=== PATIENT | female | born 1955 | race American Indian/Alaskan Native ===

== ENCOUNTER 2017-06-05 13:07 | Emergency (ER) | payer MEDICAID ==
--- NOTE | 2017-06-05 13:27 | Emergency Department Report ---
ED Female HPI - General Stated complaint: VAGINAL BLEED Time Seen by Provider: 06/05/17 13:21 - History of Present Illness Initial comments: Patient is 61 years old female, snf patient at [place]. Patient presented to the ER with a chief complaint of vaginal bleeding that started this morning the patient denied any trauma or injury. She denied any abdominal pain or cramping. No nausea no vomiting. Patient had a history of diabetes, CABG, hyperlipidemia and hypertension. Patient on Plavix. MD Complaint: vaginal bleeding -: This morning Associated Symptoms: denies other symptoms, vaginal bleeding - Related Data Allergies Allergy/AdvReac Type Severity Reaction Status Date / Time No Known Allergies Allergy Unverified 06/05/17 13:30 ED Review of Systems ROS: Stated complaint: VAGINAL BLEED Other details as noted in HPI Comment: All other systems reviewed and negative Constitutional: denies: chills, fever Respiratory: denies: cough, shortness of breath, SOB with exertion, SOB at rest Cardiovascular: denies: chest pain, palpitations, dyspnea on exertion, orthopnea , edema, syncope, paroxysmal nocturnal dyspnea Gastrointestinal: denies: abdominal pain, nausea, vomiting, diarrhea, constipation, hematemesis, melena, hematochezia Genitourinary: abnormal menses. denies: urgency, dysuria ED Past Medical Hx - Past Medical History Hx Hypertension: Yes Hx Heart Attack/AMI: Yes Hx Diabetes: Yes ED Physical Exam - General General appearance: alert, in no apparent distress - Head Head exam: Present: atraumatic, normocephalic, normal inspection - Eye Eye exam: Present: normal appearance, PERRL - ENT ENT exam: Present: normal exam, normal orophraynx, mucous membranes moist - Neck Neck exam: Present: normal inspection, full ROM. Absent: tenderness, meningismus, lymphadenopathy, thyromegaly - Respiratory Respiratory exam: Present: normal lung sounds bilaterally. Absent: respiratory distress, wheezes, rales, rhonchi, stridor, chest wall tenderness, accessory muscle use, decreased breath sounds, prolonged expiratory - Cardiovascular Cardiovascular Exam: Present: regular rate, normal rhythm, normal heart sounds - GI/Abdominal GI/Abdominal exam: Present: soft, normal bowel sounds. Absent: distended, tenderness, guarding, rebound, rigid, organomegaly, mass, bruit, pulsatile mass , hernia - External exam: Present: bleeding. Absent: erythema, swelling, lesions, lacerations, ecchymosis Speculum exam: Present: vaginal bleeding. Absent: erythema, vaginal discharge - Extremities Exam Extremities exam: Present: normal inspection, full ROM, normal capillary refill , other (left below the knee amputation). Absent: tenderness, pedal edema, joint swelling, calf tenderness - Back Exam Back exam: Present: normal inspection, full ROM. Absent: tenderness, CVA tenderness (R), CVA tenderness (L), muscle spasm, paraspinal tenderness, vertebral tenderness - Neurological Exam Neurological exam: Present: alert, oriented X3, CN II-XII intact - Psychiatric Psychiatric exam: Present: normal affect, normal mood - Skin Skin exam: Present: warm, intact, normal color ED Medical Decision Making - Radiology Data Radiology results: report reviewed Referring Physician: DOREEN DOWLING Patient Name: SANTI COOPER Date of : 1955 Sex: Female Report Date: 2017-06-05 Report Status: [place] [address] Ultrasound Report Signed Patient: SANTI COOPER MR#: [id number] : 1955 Acct:[id number] Age/Sex: 61 / F ADM Date: 06/05/17 Loc: ED Attending Dr: Ordering Physician: DOREEN DOWLING Date of Service: 06/05/17 Procedure(s): US transvaginal Accession Number(s): [id number] cc: DOREEN DOWLING FINAL REPORT PROCEDURE: US transabdominal and TRANSVAGINAL TECHNIQUE: Real-time transabdominal sonography in multiple planes of the pelvis was performed. The pelvic structures, especially the ovaries were not optimally visualized. Transvaginal sonography was then performed to better evaluate the structures and/or abnormalities described below with image documentation. CPT 66048 and 81856 HISTORY: vaginal bleed COMPARISON: No prior studies are available for comparison. FINDINGS: UTERUS Size: 14.6 x 10.2 x 10.3 cm. Endometrial thickness: 11 mm. Orientation: anteverted. Cervix: Normal. Fibroids/masses: There are 4 rounded hypoechoic uterine lesions, compatible with fibroids. Largest is in the fundus, measuring up to 3.5 centimeters. Three have a mural location. One is subserosal at the fundus. RIGHT Ovary: 4.4 x 2.9 x 3.0 cm. Appearance: Normal. LEFT Ovary: Not visualized Pelvic fluid: None. Other: None. IMPRESSION: Uterine fibroids Left ovary is not visualized Transcribed By: [facility] Dictated By: CHARLOTTE ENAMORADO M.D. Electronically Authenticated By: CHARLOTTE ENAMORADO M.D. Signed Date/Time: 06/05/171457 DD/ 57 TD/TT: 06/05/171457 Critical care attestation.: If time is entered above; I have spent that time in minutes in the direct care of this critically ill patient, excluding procedure time. ED Disposition Clinical Impression: Vaginal bleeding, Uterine fibroid Disposition: - TO HOME OR SELFCARE Is pt being admited?: No Condition: Stable Instructions: Uterine Fibroids (ED) Additional Instructions: Patient will need to follow-up is Dr. Marcial. Referrals: DORINA MARCIAL MD [Staff Physician] - 3-5 Days
--- NOTE | 2017-06-05 15:03 | Ultrasound Report ---
FINAL REPORT PROCEDURE: US transabdominal and TRANSVAGINAL TECHNIQUE: Real-time transabdominal sonography in multiple planes of the pelvis was performed. The pelvic structures, especially the ovaries were not optimally visualized. Transvaginal sonography was then performed to better evaluate the structures and/or abnormalities described below with image documentation. CPT 30304 and 20967 HISTORY: vaginal bleed COMPARISON: No prior studies are available for comparison. FINDINGS: UTERUS Size: 14.6 x 10.2 x 10.3 cm. Endometrial thickness: 11 mm. Orientation: anteverted. Cervix: Normal. Fibroids/masses: There are 4 rounded hypoechoic uterine lesions, compatible with fibroids. Largest is in the fundus, measuring up to 3.5 centimeters. Three have a mural location. One is subserosal at the fundus. RIGHT Ovary: 4.4 x 2.9 x 3.0 cm. Appearance: Normal. LEFT Ovary: Not visualized Pelvic fluid: None. Other: None. IMPRESSION: Uterine fibroids Left ovary is not visualized
--- NOTE | 2017-06-05 15:03 | Ultrasound Report ---
FINAL REPORT PROCEDURE: US transabdominal and TRANSVAGINAL TECHNIQUE: Real-time transabdominal sonography in multiple planes of the pelvis was performed. The pelvic structures, especially the ovaries were not optimally visualized. Transvaginal sonography was then performed to better evaluate the structures and/or abnormalities described below with image documentation. CPT 17027 and 32889 HISTORY: vaginal bleed COMPARISON: No prior studies are available for comparison. FINDINGS: UTERUS Size: 14.6 x 10.2 x 10.3 cm. Endometrial thickness: 11 mm. Orientation: anteverted. Cervix: Normal. Fibroids/masses: There are 4 rounded hypoechoic uterine lesions, compatible with fibroids. Largest is in the fundus, measuring up to 3.5 centimeters. Three have a mural location. One is subserosal at the fundus. RIGHT Ovary: 4.4 x 2.9 x 3.0 cm. Appearance: Normal. LEFT Ovary: Not visualized Pelvic fluid: None. Other: None. IMPRESSION: Uterine fibroids Left ovary is not visualized PROCEDURE: TECHNIQUE: HISTORY: COMPARISON: FINDINGS: IMPRESSION:
[2017-06-05 16:34] LABS: Basophils # (Auto) 0.1 K/mm3 (0.0-0.1); Basophils % (Auto) 0.9 % (0.0-1.8); Eosinophils # (Auto) 0.1 K/mm3 (0.0-0.4); Eosinophils % (Auto) 1.3 % (0.0-4.3); Hematocrit 33.6 % (30.3-42.9); Hemoglobin 10.6 gm/dl (10.1-14.3); Lymphocytes # (Auto) 2.6 K/mm3 (1.2-5.4); Lymphocytes % (Auto) 34.4 % (13.4-35.0); Mean Corpuscular HGB Conc 32 % (30-34); Mean Corpuscular Hemoglobin 27 pg (28-32); Mean Corpuscular Volume 87 fl (79-97); Monocytes # (Auto) 0.6 K/mm3 (0.0-0.8); Monocytes % (Auto) 7.3 % (0.0-7.3); Platelet Count 290 K/mm3 (140-440); Red Blood Count 3.87 M/mm3 (3.65-5.03); Red Cell Distribution Width 15.9 % (13.2-15.2)
[2017-06-05 16:43] LABS: INR 0.92 (0.87-1.13)
[2017-06-05 16:44] LABS: Partial Thromboplastin Time 33.6 Sec. (24.2-36.6)
[2017-06-05 17:10] LABS: Albumin 3.3 g/dL (3.9-5); Calcium 8.9 mg/dL (8.4-10.2)
[2017-06-05 18:27] VITALS: BP 174/79
== END 2017-06-05 18:34 | disposition home or self-care (01) ==
LOC: ED 13:07
DX: D25.9 Leiomyoma of uterus, unspecified (principal); E11.9 Type 2 diabetes mellitus without complications; I10 Essential (primary) hypertension; E78.5 Hyperlipidemia, unspecified; Z95.1 Presence of aortocoronary bypass graft
CPT/HCPCS: 36415; 76830; 76856; 80053; 82962; 85025; 85610; 85730

== ENCOUNTER 2018-08-22 17:27 | Inpatient (IN) | payer MEDICAID ==
[2018-08-22] MEDS ORDERED: ATIVAN ONE ×2 (17:32→17:49)
[2018-08-22 18:14] LABS: Basophils # (Auto) 0.1 K/mm3 (0.0-0.1); Basophils % (Auto) 0.8 % (0.0-1.8); Eosinophils % (Auto) 0.1 % (0.0-4.3); Hemoglobin 13.1 gm/dl (10.1-14.3); Lymphocytes # (Auto) 1.5 K/mm3 (1.2-5.4); Lymphocytes % (Auto) 14.3 % (13.4-35.0); Monocytes # (Auto) 0.2 K/mm3 (0.0-0.8); Monocytes % (Auto) 2.1 % (0.0-7.3)
[2018-08-22] MEDS ORDERED: ATIVAN IV ONE ×2 (18:20→18:21)
[2018-08-22] MEDS ORDERED: KEPPRA 1,000 MG/NS 0.75% 100ML 1,000 MG/100 ML BAG IV ONE (18:24)
[2018-08-22 18:37] LABS: Albumin 3.1 g/dL (3.9-5); Calcium 9.4 mg/dL (8.4-10.2)
[2018-08-22] MEDS ORDERED: NACL 0.9% 1000 ML 1,000 ML IV ONE (18:40)
[2018-08-22 18:42] LABS: Mean Corpuscular HGB Conc 33 % (30-34); Mean Corpuscular Volume 84 fl (79-97); Platelet Count 391 K/mm3 (140-440); Red Blood Count 4.74 M/mm3 (3.65-5.03); Red Cell Distribution Width 15.9 % (13.2-15.2)
--- NOTE | 2018-08-22 19:11 | Cat Scan Report ---
CT head without contrast CLINICAL HISTORY: Seizure, hypertension, altered mental status, unresponsive. FINDINGS:There is extensive encephalomalacia involving posterior left cerebrum indicative of old infa rcts. Findings would be within the left MGMT CONSULTANT and posterior left MCA distributions. There is heterogene ous attenuation within the more posterior portion of encephalomalacia with adjacent calcification whi ch is also likely related to the old infarct at. This finding was described on the report of the prev ious study of 11/13/2017 though this exam is not currently available for direct comparison.. There is notable ex vacuo dilatation of the posterior left lateral ventricle. There is a smaller old infarct involving the right basal ganglia. There is otherwise mild microvascul ar angiopathy. There is no clear CT evidence of acute intracranial hemorrhage or significant mass eff ect. The visualized paranasal sinuses are clear. IMPRESSION: There is extensive encephalomalacia involving the posterior left cerebrum. There is a smaller chronic infarct involving the right basal ganglia. There is no clear CT evidence of acute intracranial hemorrhage. Signer Name: Gómez Alvarez MD Signed: 08/22/2018 7:07 PM Workstation Name: [id number]
[2018-08-22] MEDS ORDERED: APRESOLINE IV ONE (19:53)
[2018-08-22 20:40] LABS: Bacteria,Urine 4+ /HPF (Negative); Bilirubin,Urine NEG (Negative); Blood,Urine SM (Negative); Color,Urine Amber (Yellow); Hyaline Casts,Urine 7 /LPF; Mucus,Urine 1+ /HPF; Urobilinogen,Urine < 2.0 mg/dL (<2.0)
[2018-08-22 20:41] LABS: Protein,Urine >500 mg/dL (Negative)
[2018-08-22] MEDS: CARDENE 50 MG in NACL 0.9% 250ML 230 ML IV SCH (23:22)
[2018-08-22] MEDS ORDERED: ROCEPHIN/NS 2 GM/100 ML 2 GM/100 ML BAG IV ONE (23:41)
[2018-08-22] MEDS ORDERED: ZOFRAN IV PRN (23:50)
[2018-08-22] MEDS ORDERED: D50W (25GM) Syringe IV PRN (23:50)
--- NOTE | 2018-08-23 00:03 | Emergency Department Report ---
ED General Adult HPI - General Chief complaint: Seizure Stated complaint: SEIZURE Time Seen by Provider: 08/22/18 17:43 Source: EMS Mode of arrival: Stretcher Limitations: No Limitations - History of Present Illness Initial comments: Patient is a 62-year-old hyperactive female with a past medical of hypertension diabetes and seizure disorder. Patient presenting with prolonged seizure. According to paramedics patient had a prolonged seizure which is uncontrolled with nasal benzos during her transport. Patient then had a seizure greater than 10 minutes. There is no evidence that the patient has had any falls or trauma or fever. Patient is unable to give any additional history at the time of arrival secondary to active ongoing seizure. - Related Data Home Medications Medication Instructions Recorded Confirmed Last Taken Aspirin 81 mg PO DAILY 11/14/17 08/22/18 Unknown Megestrol Acetate 800 mg PO DAILY 11/14/17 08/22/18 Unknown OLANZapine [Zyprexa] 2.5 mg PO DAILY 11/14/17 08/22/18 Unknown Acetaminophen 325 mg PO Q6H PRN 12/22/17 08/22/18 Unknown Glucagon HCl 1 mg IM ONCE PRN 12/22/17 08/22/18 Unknown Klor-Con 10 10 meq PO DAILY 12/22/17 08/22/18 Unknown Lispro Insulin [HumaLOG] See Protocol SC ACHS 12/22/17 08/22/18 Unknown Simethicone 80 mg PO Q8H PRN 12/22/17 08/22/18 Unknown Previous Rx's Medication Instructions Recorded Last Taken Type FLUoxetine [PROzac] 40 mg PO QDAY #30 capsule 11/26/17 Unknown Rx Ferrous Sulfate [Ferrous Sulfate 300 mg PO QDAY #30 oral.liqd 11/26/17 Unknown Rx Oral Liq 300 Mg/5 Ml] Pantoprazole [Protonix TAB] 40 mg PO QDAY #30 tablet 11/26/17 Unknown Rx amLODIPine [Norvasc] 10 mg PO DAILY #30 tablet 11/26/17 Unknown Rx Carvedilol [Coreg] 25 mg PO BID tablet 12/06/17 Unknown Rx cloNIDine [Catapres] 0.1 mg PO Q8H tablet 12/06/17 Unknown Rx traMADol [Ultram 50 MG tab] 50 mg PO Q12HR PRN #20 tablet 12/06/17 Unknown Rx levETIRAcetam [Keppra ORAL LIQ] 750 mg PO BID 30 Days bottle 01/04/18 Unknown Rx Allergies Allergy/AdvReac Type Severity Reaction Status Date / Time No Known Allergies Allergy Unverified 06/05/17 13:30 ED Review of Systems ROS: Stated complaint: SEIZURE Other details as noted in HPI Comment: All other systems reviewed and negative ED Past Medical Hx - Past Medical History Hx Hypertension: Yes Hx Heart Attack/AMI: Yes Hx Congestive Heart Failure: No Hx Diabetes: Yes Hx Deep Vein Thrombosis: No Hx Seizures: Yes Hx Asthma: No Hx COPD: No Hx Dementia: Yes - Surgical History Hx Open Heart Surgery: Yes Hx Pacemaker: No Hx Internal Defibrillator: No Additional Surgical History: Left leg AKA - Social History Smoking Status: Unknown if ever smoked - Medications Home Medications: Home Medications Medication Instructions Recorded Confirmed Last Taken Type Aspirin 81 mg PO DAILY 11/14/17 08/22/18 Unknown History Megestrol Acetate 800 mg PO DAILY 11/14/17 08/22/18 Unknown History OLANZapine [Zyprexa] 2.5 mg PO DAILY 11/14/17 08/22/18 Unknown History FLUoxetine [PROzac] 40 mg PO QDAY #30 capsule 11/26/17 08/22/18 Unknown Rx Ferrous Sulfate [Ferrous Sulfate 300 mg PO QDAY #30 oral.liqd 11/26/17 08/22/18 Unknown Rx Oral Liq 300 Mg/5 Ml] Pantoprazole [Protonix TAB] 40 mg PO QDAY #30 tablet 11/26/17 08/22/18 Unknown Rx amLODIPine [Norvasc] 10 mg PO DAILY #30 tablet 11/26/17 08/22/18 Unknown Rx Carvedilol [Coreg] 25 mg PO BID tablet 12/06/17 08/22/18 Unknown Rx cloNIDine [Catapres] 0.1 mg PO Q8H tablet 12/06/17 08/22/18 Unknown Rx traMADol [Ultram 50 MG tab] 50 mg PO Q12HR PRN #20 tablet 12/06/17 08/22/18 Unknown Rx Acetaminophen 325 mg PO Q6H PRN 12/22/17 08/22/18 Unknown History Glucagon HCl 1 mg IM ONCE PRN 12/22/17 08/22/18 Unknown History Klor-Con 10 10 meq PO DAILY 12/22/17 08/22/18 Unknown History Lispro Insulin [HumaLOG] See Protocol SC ACHS 12/22/17 08/22/18 Unknown History Simethicone 80 mg PO Q8H PRN 12/22/17 08/22/18 Unknown History levETIRAcetam [Keppra ORAL LIQ] 750 mg PO BID 30 Days bottle 01/04/18 08/22/18 Unknown Rx ED Physical Exam - General Limitations: No Limitations General appearance: other - Head Head exam: Present: atraumatic, normocephalic - Eye Eye exam: Present: normal appearance. Absent: PERRL, EOMI - ENT ENT exam: Present: mucous membranes moist - Neck Neck exam: Present: normal inspection - Respiratory Respiratory exam: Present: normal lung sounds bilaterally. Absent: respiratory distress, wheezes, rales, rhonchi - Cardiovascular Cardiovascular Exam: Present: normal rhythm, tachycardia. Absent: systolic murmur, diastolic murmur, rubs, gallop - GI/Abdominal GI/Abdominal exam: Present: soft, normal bowel sounds. Absent: distended, tenderness, guarding - Extremities Exam Extremities exam: Present: normal inspection - Back Exam Back exam: Present: normal inspection - Neurological Exam Neurological exam: Present: alert, oriented X3 - Psychiatric Psychiatric exam: Present: normal affect, normal mood - Skin Skin exam: Present: warm, dry, intact, normal color. Absent: rash ED Course Vital Signs 08/22/18 08/22/18 08/22/18 15:54 16:00 16:28 Temperature Pulse Rate 71 68 Respiratory 26 H 30 H Rate Blood Pressure 154/95 154/95 Blood Pressure [Right] O2 Sat by Pulse 98 100 100 Oximetry 08/22/18 08/22/18 08/22/18 16:30 16:46 17:00 Temperature Pulse Rate 60 66 62 Respiratory 18 15 21 Rate Blood Pressure 122/74 136/84 137/83 Blood Pressure [Right] O2 Sat by Pulse 100 100 100 Oximetry 08/22/18 08/22/18 08/22/18 17:15 17:32 17:45 Temperature 99.1 F Pulse Rate 58 L 123 H 104 H Respiratory 14 43 H 30 H Rate Blood Pressure 145/82 145/82 168/125 Blood Pressure 168/125 [Right] O2 Sat by Pulse 100 100 Oximetry 08/22/18 08/22/18 08/22/18 17:46 18:06 18:16 Temperature Pulse Rate 90 80 80 Respiratory 21 24 21 Rate Blood Pressure 168/125 153/57 Blood Pressure [Right] O2 Sat by Pulse 100 100 100 Oximetry 08/22/18 08/22/18 08/22/18 18:42 18:46 19:00 Temperature Pulse Rate 74 74 70 Respiratory 22 20 22 Rate Blood Pressure 223/85 Blood Pressure [Right] O2 Sat by Pulse 100 100 100 Oximetry 08/22/18 08/22/18 08/22/18 19:16 19:30 19:45 Temperature Pulse Rate 72 77 71 Respiratory 20 26 H 24 Rate Blood Pressure 221/95 236/94 228/98 Blood Pressure [Right] O2 Sat by Pulse 100 100 100 Oximetry 08/22/18 08/22/18 08/22/18 20:00 20:07 20:16 Temperature Pulse Rate 70 71 73 Respiratory 23 25 H Rate Blood Pressure 227/99 227/99 212/79 Blood Pressure [Right] O2 Sat by Pulse 100 100 Oximetry 08/22/18 08/22/18 08/22/18 20:30 20:46 21:00 Temperature Pulse Rate 74 73 73 Respiratory 24 22 22 Rate Blood Pressure 195/65 199/86 206/88 Blood Pressure [Right] O2 Sat by Pulse 100 100 100 Oximetry 08/22/18 08/22/18 08/22/18 21:15 21:30 21:45 Temperature Pulse Rate 72 72 75 Respiratory 26 H 21 21 Rate Blood Pressure 203/88 210/88 211/92 Blood Pressure [Right] O2 Sat by Pulse 100 100 100 Oximetry 08/22/18 08/22/18 08/22/18 22:00 22:15 22:30 Temperature Pulse Rate 74 75 74 Respiratory 17 21 14 Rate Blood Pressure 201/82 196/86 203/82 Blood Pressure [Right] O2 Sat by Pulse 100 100 100 Oximetry 08/22/18 08/22/18 08/22/18 22:45 23:00 23:16 Temperature Pulse Rate 83 78 77 Respiratory 27 H 25 H 20 Rate Blood Pressure 227/100 228/86 215/88 Blood Pressure [Right] O2 Sat by Pulse 100 100 100 Oximetry 08/22/18 23:31 Temperature Pulse Rate 77 Respiratory 24 Rate Blood Pressure 212/83 Blood Pressure [Right] O2 Sat by Pulse 100 Oximetry ED Medical Decision Making - Lab Data Result diagrams: 08/22/18 18:03 08/22/18 18:03 Lab Results 08/22/18 08/22/18 08/22/18 Range/Units 18:03 18:03 19:45 WBC 10.3 (4.5-11.0) K/mm3 RBC 4.74 (3.65-5.03) M/mm3 Hgb 13.1 (10.1-14.3) gm/dl Hct 40.0 (30.3-42.9) % MCV 84 (79-97) fl MCH 28 (28-32) pg MCHC 33 (30-34) % RDW 15.9 H (13.2-15.2) % Plt Count 391 (140-440) K/mm3 Lymph % (Auto) 14.3 (13.4-35.0) % Toole % (Auto) 2.1 (0.0-7.3) % Eos % (Auto) 0.1 (0.0-4.3) % Baso % (Auto) 0.8 (0.0-1.8) % Lymph # 1.5 (1.2-5.4) K/mm3 Toole # 0.2 (0.0-0.8) K/mm3 Eos # 0.0 (0.0-0.4) K/mm3 Baso # 0.1 (0.0-0.1) K/mm3 Seg Neutrophils % 82.7 H (40.0-70.0) % Seg Neutrophils # 8.5 H (1.8-7.7) K/mm3 Sodium 138 (137-145) mmol/L Potassium 4.8 (3.6-5.0) mmol/L Chloride 101.5 (98-107) mmol/L Carbon Dioxide 16 L (22-30) mmol/L Anion Gap 25 mmol/L BUN 36 H (7-17) mg/dL Creatinine 2.3 H (0.7-1.2) mg/dL Estimated GFR 26 ml/min BUN/Creatinine Ratio 16 % Glucose 318 H (65-100) mg/dL Calcium 9.4 (8.4-10.2) mg/dL Total Bilirubin 0.30 (0.1-1.2) mg/dL AST 23 (5-40) units/L ALT 7 (7-56) units/L Alkaline Phosphatase 110 (35-129) units/L Total Protein 8.2 (6.3-8.2) g/dL Albumin 3.1 L (3.9-5) g/dL Albumin/Globulin Ratio 0.6 % Urine Color Gracia (Yellow) Urine Turbidity Cloudy (Clear) Urine pH 6.0 (5.0-7.0) Ur Specific [place] 1.024 (1.003-1.030) Urine Protein >500 (Negative) mg/dL Urine Glucose (UA) 150 (Negative) mg/dL Urine Ketones Neg (Negative) mg/dL Urine Blood Sm (Negative) Urine Nitrite Neg (Negative) Urine Bilirubin Neg (Negative) Urine Urobilinogen < 2.0 (<2.0) mg/dL Ur Leukocyte Esterase Tr (Negative) Urine WBC (Auto) 42.0 H (0.0-6.0) /HPF Urine RBC (Auto) 11.0 (0.0-6.0) /HPF U Epithel Cells (Auto) 4.0 (0-13.0) /HPF Urine Bacteria (Auto) 4+ (Negative) /HPF Hyaline Casts 7 /LPF Urine Mucus 1+ /HPF - Radiology Data [facility] [address] [place] [address] Cat Scan Report Signed Patient: SANTI COOPER MR#: [id number] : 1955 Acct:[id number] Age/Sex: 62 / F ADM Date: 08/22/18 Loc: ED Attending Dr: Ordering Physician: DIA LORENZO MD Date of Service: 08/22/18 Procedure(s): CT head/brain wo con Accession Number(s): [id number] cc: DIA LORENZO MD CT head without contrast CLINICAL HISTORY: Seizure, hypertension, altered mental status, unresponsive. FINDINGS:There is extensive encephalomalacia involving posterior left cerebrum indicative of old infarcts. Findings would be within the left OUTPATIENT PHYSICAL THERAPIST and posterior left MCA distributions. There is heterogeneous attenuation within the more posterior portion of encephalomalacia with adjacent calcification which is also likely related to the old infarct at. This finding was described on the report of the previous study of 11/13/2017 though this exam is not currently available for direct comparison.. There is notable ex vacuo dilatation of the posterior left lateral ventricle. There is a smaller old infarct involving the right basal ganglia. There is otherwise mild microvascular angiopathy. There is no clear CT evidence of acute intracranial hemorrhage or significant mass effect. The visualized paranasal sinuses are clear. IMPRESSION: There is extensive encephalomalacia involving the posterior left cerebrum. There is a smaller chronic infarct involving the right basal ganglia. There is no clear CT evidence of acute intracranial hemorrhage. Signer Name: Gómez Alvarez MD Signed: 08/22/2018 7:07 PM Workstation Name: [id number] Transcribed By: MR Dictated By: Gómez Alvarez MD Electronically Authenticated By: Gómez Alvarez MD Signed Date/Time: 08/22/181906 DD/ 00 - Medical Decision Making Patient was actively seizing at the time of arrival. Patient had an IO placed in the right tibia and the patient was able to be given 3 of Ativan. Patient did have termination of her seizure. Patient blood pressure was elevated at the time of arrival and during transport. Blood pressure continued to be elevated even after the patient stopped having a seizure. The patient was monitored for 6 hours but still was unresponsive. Patient seemed to not be bothered by nasal trumpet had no purposeful movements. Patient still very lethargic. Patient to be admitted for further monitoring for prolonged postictal phase. Patient is also noted to have very elevated blood pressure started on Cardene drip. Patient has a UTI as well treated with Rocephin. Patient admitted to the hospitalist service.. Critical Care Time: Yes (30) Critical care attestation.: If time is entered above; I have spent that time in minutes in the direct care of this critically ill patient, excluding procedure time. ED Disposition Clinical Impression: Seizure, Hypertensive emergency, UTI (urinary tract infection) Disposition: OP ADMIT IP TO THIS HOSP Is pt being admited?: Yes Does the pt Need Aspirin: No Condition: Stable Instructions: Hypertension (ED) Referrals: SARY WHITE MD [Primary Care Provider] - 3-5 Days
[2018-08-23] MEDS ORDERED: SODIUM CHLORIDE FLUSH SYRINGE 10 ML IV PRN (00:12)
--- NOTE | 2018-08-23 00:28 | History and Physical Report ---
<OMID PERALES - Last Filed: 08/23/18 01:20> History of Present Illness Date of examination: 08/22/18 Date of admission: 08/22/2018 Chief complaint: Status epilepticus History of present illness: 62-year-old -Green[place]ic female with history of severe debility, insulin- dependent diabetes, hypertension, seizure, CAD, PVD, S/T AKA, endometrial cancer S/P hysterectomy, malnutrition who presents to [facility] ED via EMS with complaints of prolonged seizures. At the time of my examination patient is sedated and unable to provide history. History is provided by EMS and review of medical records. According to EMS patient experienced prolonged uncontrolled seizure; followed by a second seizure lasting greater than 10 minutes while in route to our facility. Upon arrival to our facility patient was noted to be actively seizing. An IO was placed and she was given IV Ativan 2mg x3 with termination of seizure. Past History Past Medical History: acute UT, anemia, CAD, cancer (endometrial cancer), diabetes (1), hypertension, hyperlipidemia, PVD, seizures, other (severe debility, malnutrition,, major depressive disorder, chronic pain, dementia) Past Surgical History: hysterectomy Social history: other (resident of [facility]) Family history: no significant family history Medications and Allergies Allergies Allergy/AdvReac Type Severity Reaction Status Date / Time No Known Allergies Allergy Unverified 06/05/17 13:30 Home Medications Medication Instructions Recorded Confirmed Last Taken Type Aspirin 81 mg PO DAILY 11/14/17 08/22/18 Unknown History Megestrol Acetate 800 mg PO DAILY 11/14/17 08/22/18 Unknown History OLANZapine [Zyprexa] 2.5 mg PO DAILY 11/14/17 08/22/18 Unknown History FLUoxetine [PROzac] 40 mg PO QDAY #30 capsule 11/26/17 08/22/18 Unknown Rx Ferrous Sulfate [Ferrous Sulfate 300 mg PO QDAY #30 oral.liqd 11/26/17 08/22/18 Unknown Rx Oral Liq 300 Mg/5 Ml] Pantoprazole [Protonix TAB] 40 mg PO QDAY #30 tablet 11/26/17 08/22/18 Unknown Rx amLODIPine [Norvasc] 10 mg PO DAILY #30 tablet 11/26/17 08/22/18 Unknown Rx Carvedilol [Coreg] 25 mg PO BID tablet 12/06/17 08/22/18 Unknown Rx cloNIDine [Catapres] 0.1 mg PO Q8H tablet 12/06/17 08/22/18 Unknown Rx traMADol [Ultram 50 MG tab] 50 mg PO Q12HR PRN #20 tablet 12/06/17 08/22/18 Unknown Rx Acetaminophen 325 mg PO Q6H PRN 12/22/17 08/22/18 Unknown History Glucagon HCl 1 mg IM ONCE PRN 12/22/17 08/22/18 Unknown History Klor-Con 10 10 meq PO DAILY 12/22/17 08/22/18 Unknown History Lispro Insulin [HumaLOG] See Protocol SC ACHS 12/22/17 08/22/18 Unknown History Simethicone 80 mg PO Q8H PRN 12/22/17 08/22/18 Unknown History levETIRAcetam [Keppra ORAL LIQ] 750 mg PO BID 30 Days bottle 01/04/18 08/22/18 Unknown Rx Active Meds: Active Medications Acetaminophen (Tylenol) 650 mg PO Q4H PRN PRN Reason: Pain MILD(1-3)/Fever >100.5/CARTER Dextrose (D50w (25gm) Syringe) 50 ml IV PRN PRN PRN Reason: Hypoglycemia Heparin Sodium (Porcine) (Heparin) 5,000 unit SUB-Q Q12HR NASH Nicardipine HCl 50 mg/ Sodium (Chloride) 250 mls @ 25 mls/hr IV TITR NASH; Protocol Last Titration: 08/23/18 00:04 Dose: 7.5 mg/hr, 37.5 mls/hr Documented by: Insulin Human Regular (Humulin R) 0 units SUB-Q Q6HR NASH; Protocol Ondansetron HCl (Zofran) 4 mg IV Q8H PRN PRN Reason: Nausea And Vomiting Sodium Chloride (Sodium Chloride Flush Syringe 10 Ml) 10 ml IV BID NASH Sodium Chloride (Sodium Chloride Flush Syringe 10 Ml) 10 ml IV PRN PRN PRN Reason: LINE FLUSH Review of Systems ROS unobtainable: due to mental status Exam - Physical Exam Narrative exam: Physical exam General appearance: Present: Sedated, well developed adult female - EENT Eyes: Present: PERRL ENT: hearing intact, normal dentition - Neck Neck: Present: supple, normal ROM - Respiratory Respiratory effort: Non-labored, on supplemental oxygen Respiratory: bilateral: diminished (bases) - Cardiovascular Heart rate: 99 (bpm) Rhythm: Sinus rhythm, nonspecific ST abnormalities Heart Sounds: Present: S1 & S2. Absent: rub, click - Extremities Extremities: no ischemia, pulses intact, abnormal (left AKA) - Peripheral Assessment Peripheral Pulses: within normal limits - Abdominal General gastrointestinal: soft, non-tender, normal bowel sounds - Integumentary Integumentary: Present: warm, dry - Musculoskeletal Musculoskeletal: Unable to assess - Psychiatric Psychiatric: Unable to assess - Constitutional Vitals: Temp Pulse Resp BP Pulse Ox 99.1 F 77 24 212/83 100 08/22/18 17:45 08/22/18 23:31 08/22/18 23:31 08/22/18 23:31 08/22/18 23:31 Results - Labs CBC & Chem 7: 08/22/18 18:03 08/22/18 18:03 Labs: Laboratory Last Values WBC 10.3 K/mm3 (4.5-11.0) 08/22/18 18:03 RBC 4.74 M/mm3 (3.65-5.03) 08/22/18 18:03 Hgb 13.1 gm/dl (10.1-14.3) 08/22/18 18:03 Hct 40.0 % (30.3-42.9) 08/22/18 18:03 MCV 84 fl (79-97) 08/22/18 18:03 MCH 28 pg (28-32) 08/22/18 18:03 MCHC 33 % (30-34) 08/22/18 18:03 RDW 15.9 % (13.2-15.2) H 08/22/18 18:03 Plt Count 391 K/mm3 (140-440) 08/22/18 18:03 Lymph % (Auto) 14.3 % (13.4-35.0) 08/22/18 18:03 [place] % (Auto) 2.1 % (0.0-7.3) 08/22/18 18:03 Eos % (Auto) 0.1 % (0.0-4.3) 08/22/18 18:03 Baso % (Auto) 0.8 % (0.0-1.8) 08/22/18 18:03 Lymph # 1.5 K/mm3 (1.2-5.4) 08/22/18 18:03 [place] # 0.2 K/mm3 (0.0-0.8) 08/22/18 18:03 Eos # 0.0 K/mm3 (0.0-0.4) 08/22/18 18:03 Baso # 0.1 K/mm3 (0.0-0.1) 08/22/18 18:03 Seg Neutrophils % 82.7 % (40.0-70.0) H 08/22/18 18:03 Seg Neutrophils # 8.5 K/mm3 (1.8-7.7) H 08/22/18 18:03 Sodium 138 mmol/L (137-145) 08/22/18 18:03 Potassium 4.8 mmol/L (3.6-5.0) 08/22/18 18:03 Chloride 101.5 mmol/L (98-107) 08/22/18 18:03 Carbon Dioxide 16 mmol/L (22-30) L 08/22/18 18:03 25 mmol/L 08/22/18 18:03 BUN 36 mg/dL (7-17) H 08/22/18 18:03 2.3 mg/dL (0.7-1.2) H 08/22/18 18:03 Estimated GFR 26 ml/min 08/22/18 18:03 16 % 08/22/18 18:03 Glucose 318 mg/dL (65-100) H 08/22/18 18:03 Calcium 9.4 mg/dL (8.4-10.2) 08/22/18 18:03 0.30 mg/dL (0.1-1.2) 08/22/18 18:03 AST 23 units/L (5-40) 08/22/18 18:03 ALT 7 units/L (7-56) 08/22/18 18:03 110 units/L (35-129) 08/22/18 18:03 8.2 g/dL (6.3-8.2) 08/22/18 18:03 3.1 g/dL (3.9-5) L 08/22/18 18:03 0.6 % 08/22/18 18:03 [place] (Yellow) 08/22/18 19:45 Cloudy (Clear) 08/22/18 19:45 6.0 (5.0-7.0) 08/22/18 19:45 Ur Specific [place] 1.024 (1.003-1.030) 08/22/18 19:45 >500 mg/dL (Negative) 08/22/18 19:45 150 mg/dL (Negative) 08/22/18 19:45 Neg mg/dL (Negative) 08/22/18 19:45 Sm (Negative) 08/22/18 19:45 Neg (Negative) 08/22/18 19:45 Neg (Negative) 08/22/18 19:45 < 2.0 mg/dL (<2.0) 08/22/18 19:45 Ur Leukocyte Esterase Tr (Negative) 08/22/18 19:45 42.0 /HPF (0.0-6.0) H 08/22/18 19:45 11.0 /HPF (0.0-6.0) 08/22/18 19:45 U Epithel Cells (Auto) 4.0 /HPF (0-13.0) 08/22/18 19:45 4+ /HPF (Negative) 08/22/18 19:45 Hyaline Casts 7 /LPF 08/22/18 19:45 1+ /HPF 08/22/18 19:45 - Imaging and Cardiology Imaging and Cardiology: FINDINGS:There is extensive encephalomalacia involving posterior left cerebrum indicative of old infarcts. Findings would be within the left [employer] and posterior left MCA distributions. There is heterogeneous attenuation within the more posterior portion of encephalomalacia with adjacent calcification which is also likely related to the old infarct at. This finding was described on the report of the previous study of 11/13/2017 though this exam is not currently available for direct comparison.. There is notable ex vacuo dilatation of the posterior left lateral ventricle. There is a smaller old infarct involving the right basal ganglia. There is otherwise mild microvascular angiopathy. There is no clear CT evidence of acute intracranial hemorrhage or significant mass effect. The visualized paranasal sinuses are clear. IMPRESSION: There is extensive encephalomalacia involving the posterior left cerebrum. There is a smaller chronic infarct involving the right basal ganglia. There is no clear CT evidence of acute intracranial hemorrhage. Assessment and Plan Assessment and plan: 62-year-old -[place] female with history of severe debility, insulin- dependent diabetes, hypertension, seizure, CAD, PVD, S/T AKA, endometrial cancer S/P hysterectomy, malnutrition who presents to [facility] ED via EMS with complaints of prolonged seizures. Upon arrival to our facility patient was noted to be actively seizing. An IO was placed and she was given IV Ativan 2mg x3 with termination of seizure. She was observed for several hours and remained unresponsive. During which time patient's blood pressure continued to increase. She was found to be in hypertensive urgency with blood pressure of 227/100 and subsequently started on Cardene drip. At the time of my examination patient remains sedated and unresponsive. Review of medical records shows patient had a prolonged admission and was discharged on 01/04/18. During this admission it was discussed with patient's daughter the need for PEG placement. She indicated that they did not want PEG tube. Discussed hospice option with the daughter and she agreed. Patient was then discharged to SNF with hospice. Hypertensive urgency Status epilepticus CLINT CKD3 UTI Moderate to severe malnutrition Severe debility Insulin-dependent diabetes Status post left AKA History of CAD History hypertension History of seizures History of endometrial cancer, status post hysterectomy History of major depressive disorder History of iron deficiency anemia History of hyperlipidemia Plan: Continue supportive care Initiate seizure precautions Continue to monitor BP Continue Cardene drip with transition to oral antihypertensive meds when appropriate Hold all oral antihypertensive medication now until patient's mentation improves Nothing by mouth for now, we will reassess once patient mentation improves Dietitian consult pending Nephrology consult Creatinine on admission 2.3, possibly CKD with GFR of 26; baseline creatinine 1.2-1.4 Monitor CBC Monitor hemoglobin, transfuse when necessary Urine WBC 42; urine culture pending Continue Rocephin 1 g every 24 hours IV Keppra 750 mg twice a day IV Ativan 2 mg when necessary PT/OT consult pending POC BG monitoring SSI coverage DVT PPX on heparin Advance Directives: No VTE prophylaxis?: Chemical Plan of care discussed with patient/family: Yes <ASHLEY CAICEDO - Last Filed: 08/23/18 02:03> History of Present Illness Date of admission: 08/22/18 23:50 Medications and Allergies Active Meds: Active Medications Acetaminophen (Tylenol) 650 mg PO Q4H PRN PRN Reason: Pain MILD(1-3)/Fever >100.5/CARTER Dextrose (D50w (25gm) Syringe) 50 ml IV PRN PRN PRN Reason: Hypoglycemia Heparin Sodium (Porcine) (Heparin) 5,000 unit SUB-Q Q12HR NASH Nicardipine HCl 50 mg/ Sodium (Chloride) 250 mls @ 25 mls/hr IV TITR NASH; Protocol Last Titration: 08/23/18 01:08 Dose: 7.5 mg/hr, 37.5 mls/hr Documented by: Ceftriaxone Sodium (Rocephin/Ns 1 Gm/50 Ml) 1 gm in 50 mls @ 100 mls/hr IV Q24HR NASH; Protocol Levetiracetam 750 mg/ Dextrose 107.5 mls @ 400 mls/hr IV Q12HR NASH Insulin Human Regular (Humulin R) 0 units SUB-Q Q6HR NASH; Protocol Lorazepam (Ativan) 1 mg IV Q4H PRN PRN Reason: Seizures Ondansetron HCl (Zofran) 4 mg IV Q8H PRN PRN Reason: Nausea And Vomiting Sodium Chloride (Sodium Chloride Flush Syringe 10 Ml) 10 ml IV BID [facility] Last Admin: 08/23/18 00:51 Dose: 10 ml Documented by: Sodium Chloride (Sodium Chloride Flush Syringe 10 Ml) 10 ml IV PRN PRN PRN Reason: LINE FLUSH Exam - Constitutional Vitals: Temp Pulse Resp BP Pulse Ox 98.4 F 84 20 182/79 99 08/23/18 01:54 08/23/18 01:16 08/23/18 01:16 08/23/18 01:16 08/23/18 01:16 Results - Labs CBC & Chem 7: 08/22/18 18:03 08/22/18 18:03 Labs: Laboratory Last Values WBC 10.3 K/mm3 (4.5-11.0) 08/22/18 18:03 RBC 4.74 M/mm3 (3.65-5.03) 08/22/18 18:03 Hgb 13.1 gm/dl (10.1-14.3) 08/22/18 18:03 Hct 40.0 % (30.3-42.9) 08/22/18 18:03 MCV 84 fl (79-97) 08/22/18 18:03 MCH 28 pg (28-32) 08/22/18 18:03 MCHC 33 % (30-34) 08/22/18 18:03 RDW 15.9 % (13.2-15.2) H 08/22/18 18:03 Plt Count 391 K/mm3 (140-440) 08/22/18 18:03 Lymph % (Auto) 14.3 % (13.4-35.0) 08/22/18 18:03 [place] % (Auto) 2.1 % (0.0-7.3) 08/22/18 18:03 Eos % (Auto) 0.1 % (0.0-4.3) 08/22/18 18:03 Baso % (Auto) 0.8 % (0.0-1.8) 08/22/18 18:03 Lymph # 1.5 K/mm3 (1.2-5.4) 08/22/18 18:03 [place] # 0.2 K/mm3 (0.0-0.8) 08/22/18 18:03 Eos # 0.0 K/mm3 (0.0-0.4) 08/22/18 18:03 Baso # 0.1 K/mm3 (0.0-0.1) 08/22/18 18:03 Seg Neutrophils % 82.7 % (40.0-70.0) H 08/22/18 18:03 Seg Neutrophils # 8.5 K/mm3 (1.8-7.7) H 08/22/18 18:03 Sodium 138 mmol/L (137-145) 08/22/18 18:03 Potassium 4.8 mmol/L (3.6-5.0) 08/22/18 18:03 Chloride 101.5 mmol/L (98-107) 08/22/18 18:03 Carbon Dioxide 16 mmol/L (22-30) L 08/22/18 18:03 25 mmol/L 08/22/18 18:03 BUN 36 mg/dL (7-17) H 08/22/18 18:03 2.3 mg/dL (0.7-1.2) H 08/22/18 18:03 Estimated GFR 26 ml/min 08/22/18 18:03 16 % 08/22/18 18:03 Glucose 318 mg/dL (65-100) H 08/22/18 18:03 POC Glucose 200 (70-105) H 08/23/18 01:57 Calcium 9.4 mg/dL (8.4-10.2) 08/22/18 18:03 0.30 mg/dL (0.1-1.2) 08/22/18 18:03 AST 23 units/L (5-40) 08/22/18 18:03 ALT 7 units/L (7-56) 08/22/18 18:03 110 units/L (35-129) 08/22/18 18:03 8.2 g/dL (6.3-8.2) 08/22/18 18:03 3.1 g/dL (3.9-5) L 08/22/18 18:03 0.6 % 08/22/18 18:03 [place] (Yellow) 08/22/18 19:45 Cloudy (Clear) 08/22/18 19:45 6.0 (5.0-7.0) 08/22/18 19:45 Ur Specific [place] 1.024 (1.003-1.030) 08/22/18 19:45 >500 mg/dL (Negative) 08/22/18 19:45 150 mg/dL (Negative) 08/22/18 19:45 Neg mg/dL (Negative) 08/22/18 19:45 Sm (Negative) 08/22/18 19:45 Neg (Negative) 08/22/18 19:45 Neg (Negative) 08/22/18 19:45 < 2.0 mg/dL (<2.0) 08/22/18 19:45 Ur Leukocyte Esterase Tr (Negative) 08/22/18 19:45 42.0 /HPF (0.0-6.0) H 08/22/18 19:45 11.0 /HPF (0.0-6.0) 08/22/18 19:45 U Epithel Cells (Auto) 4.0 /HPF (0-13.0) 08/22/18 19:45 4+ /HPF (Negative) 08/22/18 19:45 Hyaline Casts 7 /LPF 08/22/18 19:45 1+ /HPF 08/22/18 19:45 Assessment and Plan Assessment and plan: This is a 62-year-old and a history of hypertension, diabetes, peripheral vascular disease, coronary artery disease, hyperlipidemia, depression, seizure was sent to the emergency room for evaluation of uncontrolled seizures. Patient is status post IV Ativan and is now sedated. Blood pressure has been uncontrolled and she'll started on a Cardene drip in the emergency room. In addition the patient has a urinary tract infection, acute renal insufficiency .Agree with plan as stated above, and addition consult neurology and start gentle IV fluid
[2018-08-23] MEDS: SODIUM CHLORIDE FLUSH SYRINGE 10 ML IV SCH ×3 (00:51→22:49)
[2018-08-23] MEDS ORDERED: ATIVAN IV PRN ×2 (01:23→01:58)
[2018-08-23] MEDS: NACL 0.45% 1000 ML 1,000 ML IV SCH ×2 (04:04→18:53)
[2018-08-23] MEDS: CARDENE 50 MG in NACL 0.9% 250ML 230 ML IV SCH ×6 (04:44→22:49)
[2018-08-23 05:00] LABS: Chol/HDL Ratio 5.41 %
[2018-08-23] MEDS: HumuLIN R SUB-Q SCH ×4 (05:08→23:53)
--- NOTE | 2018-08-23 08:31 | Progress Note ---
Assessment and Plan Assessment and plan: --Hypertensive Emergency: On Cardine drip, start oral antihypertensive once patient is able to take by mo [facility] Follow-up speech and swallow evaluation --Status epilepticus: Seizure precautions, increase keppra to 1000mg bid Ativan when necessary, nephrology following, follow neuro workup --CLINT on CKD 3: Vasomotor nephropathy Gentle hydration, monitor renal function, avoid nephrotoxins, Nephrology evaluation --Possible UTI ; present on admission Empiric antibiotics, follow cultures, supportive care-- Moderate to severe malnutrition: Nutrition supplements Supportive care, nutrition consult if needed --Severe debility; physical therapy occupational therapy Supportive care --Moderate malnutrition/hypoalbuminemia; Nutrition supplements, nutrition consult, supportive care --Insulin-dependent diabetes; Accu-Chek sliding scale coverage and ADA diet Insulin as needed,hemoglobin A1c 8.3 --History of left AKA: Supportive care --History of seizures; seizure precautions Antiepileptic medications, neurology evaluation --History of endometrial cancer status post hysterectomy Check MRI of the brain, to rule out possible metastatic lesions --History of major depression; continue current antidepression medications Psych evaluation if needed --Dyslipidemia; stable on lipid-lowering medicine, low-cholesterol diet --DVT Prophylaxis; Lovenox Monitor closely and adjust the management as needed Plan of care is reviewed with the patient, and her nurse Critical care time 33 minutes History Interval history: Patient seen and examined medical records reviewed Admitted with hypertensive emergency on Cardene drip, status epilepticus On seizure precautions and antiepileptic medications No known source of seizures Vital signs reviewed Hospitalist Physical - Constitutional Vitals: Temp Pulse Resp BP Pulse Ox 99.9 F H 91 H 22 180/68 98 08/23/18 08:00 08/23/18 07:40 08/23/18 07:40 08/23/18 07:40 08/23/18 08:06 General appearance: Present: no acute distress, well-nourished - EENT Eyes: Present: PERRL, EOM intact - Neck Neck: Present: supple, normal ROM - Respiratory Respiratory effort: normal Respiratory: bilateral: diminished, negative: rales, rhonchi, wheezing - Cardiovascular Rhythm: regular Heart Sounds: Present: S1 & S2 - Extremities Extremities: no ischemia, No edema - Abdominal General gastrointestinal: soft, non-tender, non-distended, normal bowel sounds - Integumentary Integumentary: Present: clear, warm - Psychiatric Psychiatric: other (minimally communicative) - Neurologic Neurologic: moves all extremities Results - Labs CBC & Chem 7: 08/24/18 04:37 08/23/18 09:05 Labs: Laboratory Last Values WBC 10.3 K/mm3 (4.5-11.0) 08/22/18 18:03 RBC 4.74 M/mm3 (3.65-5.03) 08/22/18 18:03 Hgb 13.1 gm/dl (10.1-14.3) 08/22/18 18:03 Hct 40.0 % (30.3-42.9) 08/22/18 18:03 MCV 84 fl (79-97) 08/22/18 18:03 MCH 28 pg (28-32) 08/22/18 18:03 MCHC 33 % (30-34) 08/22/18 18:03 RDW 15.9 % (13.2-15.2) H 08/22/18 18:03 Plt Count 391 K/mm3 (140-440) 08/22/18 18:03 Lymph % (Auto) 14.3 % (13.4-35.0) 08/22/18 18:03 [place] % (Auto) 2.1 % (0.0-7.3) 08/22/18 18:03 Eos % (Auto) 0.1 % (0.0-4.3) 08/22/18 18:03 Baso % (Auto) 0.8 % (0.0-1.8) 08/22/18 18:03 Lymph # 1.5 K/mm3 (1.2-5.4) 08/22/18 18:03 [place] # 0.2 K/mm3 (0.0-0.8) 08/22/18 18:03 Eos # 0.0 K/mm3 (0.0-0.4) 08/22/18 18:03 Baso # 0.1 K/mm3 (0.0-0.1) 08/22/18 18:03 Seg Neutrophils % 82.7 % (40.0-70.0) H 08/22/18 18:03 Seg Neutrophils # 8.5 K/mm3 (1.8-7.7) H 08/22/18 18:03 Sodium 138 mmol/L (137-145) 08/22/18 18:03 Potassium 4.8 mmol/L (3.6-5.0) 08/22/18 18:03 Chloride 101.5 mmol/L (98-107) 08/22/18 18:03 Carbon Dioxide 16 mmol/L (22-30) L 08/22/18 18:03 25 mmol/L 08/22/18 18:03 BUN 36 mg/dL (7-17) H 08/22/18 18:03 2.3 mg/dL (0.7-1.2) H 08/22/18 18:03 Estimated GFR 26 ml/min 08/22/18 18:03 16 % 08/22/18 18:03 Glucose 318 mg/dL (65-100) H 08/22/18 18:03 POC Glucose 268 (70-105) H 08/23/18 05:06 8.3 % (4-6) H 08/23/18 01:03 Calcium 9.4 mg/dL (8.4-10.2) 08/22/18 18:03 0.30 mg/dL (0.1-1.2) 08/22/18 18:03 AST 23 units/L (5-40) 08/22/18 18:03 ALT 7 units/L (7-56) 08/22/18 18:03 110 units/L (35-129) 08/22/18 18:03 8.2 g/dL (6.3-8.2) 08/22/18 18:03 3.1 g/dL (3.9-5) L 08/22/18 18:03 0.6 % 08/22/18 18:03 Triglycerides 160 mg/dL (2-149) H 08/23/18 04:08 Cholesterol 325 mg/dL (50-199) H 08/23/18 04:08 248 mg/dL (50-130) H 08/23/18 04:08 60 mg/dL (40-59) H 08/23/18 04:08 5.41 % 08/23/18 04:08 [place] (Yellow) 08/22/18 19:45 Cloudy (Clear) 08/22/18 19:45 6.0 (5.0-7.0) 08/22/18 19:45 Ur Specific [place] 1.024 (1.003-1.030) 08/22/18 19:45 >500 mg/dL (Negative) 08/22/18 19:45 150 mg/dL (Negative) 08/22/18 19:45 Neg mg/dL (Negative) 08/22/18 19:45 Sm (Negative) 08/22/18 19:45 Neg (Negative) 08/22/18 19:45 Neg (Negative) 08/22/18 19:45 < 2.0 mg/dL (<2.0) 08/22/18 19:45 Ur Leukocyte Esterase Tr (Negative) 08/22/18 19:45 42.0 /HPF (0.0-6.0) H 08/22/18 19:45 11.0 /HPF (0.0-6.0) 08/22/18 19:45 U Epithel Cells (Auto) 4.0 /HPF (0-13.0) 08/22/18 19:45 4+ /HPF (Negative) 08/22/18 19:45 Hyaline Casts 7 /LPF 08/22/18 19:45 1+ /HPF 08/22/18 19:45 Active Medications - Current Medications Current Medications: Generic Name Dose Route Start Last Admin Trade Name Freq PRN Reason Stop Dose Admin Acetaminophen 650 mg 08/22/18 23:50 Tylenol PO Q4H PRN Pain MILD(1-3)/Fever >100.5/CARTER Dextrose 50 ml 08/22/18 23:50 D50w (25gm) Syringe IV PRN PRN Hypoglycemia Heparin Sodium (Porcine) 5,000 unit 08/23/18 10:00 Heparin SUB-Q Q12HR NASH Nicardipine HCl 50 mg/ Sodium 250 mls @ 25 mls/hr 08/22/18 23:00 08/23/18 08:13 Chloride IV 15 mg/hr TITR NASH 75 mls/hr Administration Protocol 5 MG/HR Ceftriaxone Sodium 1 gm in 50 mls @ 100 mls/hr 08/23/18 10:00 Rocephin/Ns 1 Gm/50 Ml IV Q24HR NASH Protocol Sodium Chloride 1,000 mls @ 75 mls/hr 08/23/18 03:00 08/23/18 04:04 Nacl 0.45% 1000 Ml IV 75 mls/hr DIRECT NASH Administration Levetiracetam 1,000 mg/ 110 mls @ 400 mls/hr 08/23/18 10:00 Dextrose IV Q12HR NASH Insulin Human Regular 0 units 08/23/18 06:00 08/23/18 05:08 Humulin R SUB-Q 4 units Q6HR NASH Administration Protocol Lorazepam 1 mg 08/23/18 01:58 Ativan IV Q4H PRN Seizures Ondansetron HCl 4 mg 08/22/18 23:50 Zofran IV Q8H PRN Nausea And Vomiting Sodium Chloride 10 ml 08/22/18 23:50 08/23/18 00:51 Sodium Chloride Flush Syringe 10 Ml IV 10 ml BID NASH Administration Sodium Chloride 10 ml 08/23/18 00:12 Sodium Chloride Flush Syringe 10 Ml IV PRN PRN LINE FLUSH
--- NOTE | 2018-08-23 08:51 | Consultation ---
History of Present Illness - History of Present Illness For the consultation patient was evaluated today Source of information: History of presenting illness: Patient is 62-year-old female who has been admitted here with prolonged/ uncontrolled seizure, patient was also noted to have for renal failure with a creatinine of 2.3 bicarbonate 16, blood sugar was 318 with a hemoglobin A1c of 8.3, Review of the old records shows that in December 2017 her creatinine was around 1.4 and May 2017 it was still 1.4, Urinalysis currently shows 42 white blood cells and 4+ bacteria urine was cloudy with more than 500 mg protein in the urine No cultures have been sent as far as urine is concerned, Ultrasonogram obtained 2018 shows evidence of increased echogenicity in the kidneys Patient still continues to have issues with uncontrolled hypertension blood pressure currently 180/68 temperature 99.9 lactic acid level has not been order ed Consultation has been placed for management of renal failure? Acute Past medical history significant for: Hypertension, seizure, gastro esophageal reflux disorder Myocardial infarction Coronary artery disease Endometrial cancer Diabetes mellitus Hypertension Hyperlipidemia Peripheral vascular disease Current allergies: None Home medication, present medications reviewed patient was taking metformin in addition to several other medications Social history: Reviewed from the chart Family history: Reviewed from the chart Review of system: Limited due to seizure altered mental status Physical examination: Vitals: Reviewed HEENT: Normocephalic/atraumatic skull no pallor or icterus no uremic order oral mucosa moist Neck: Supple without any thyromegaly noted or mass JVD Chest: Clear to auscultation anteriorly no crackles rales or wheezes Heart: Regular rate and rhythm S1 and S2 heard no S3-S4 no pericardial rub Abdomen: Soft nontender no organomegaly no masses no suprapubic fullness no CVA tenderness no renal bruit Extremity: Dry skin, peripheral pulses palpable no cyanosis skin hygiene and poor, Endocrine: Thyroid not enlarged Psych: No evidence of vegetation aggression or behavioral issues noted Freedom: Dry skin no petechial skin rashes Back: Nontender thoracolumbar spine Neurological: Patient appears to be post ictal Labs and x-rays: Reviewed from this admission Assessment and plan: Renal failure in a patient whose baseline creatinine is 1.4, currently admitted here with frequent uncontrolled seizure, patient also does have evidence of metabolic acidosis, there is no emergent indication for renal replacement therapy today, Patient needs aggressive hydration follow-up on renal function will also order CPK level, osmolality, uric acid, renal ultrasonogram, lactic acid level, given that she is in renal failure and has had seizure disorder to make sure she does not have lactic acidosis Metabolic acidosis will check lactic acid level given the patient has been admitted here with frequent seizure and prolonged seizure Accelerated hypertension given the degree and severity of hypertension secondary hypertension should be ruled out, given that she has a history of acute DC as well as coronary artery disease despite etc. higher risk for renovascular hy pertension At this time goal would to keep her blood pressure around 160 or less gradual reduction is recommended Will obtain all the necessary lapse as well as renal imaging for workup of renal failure Renal prognosis remains guarded at this time We'll continue to follow and make recommendation from renal standpoint Please feel free to call me at [phone] if you have any questions in regards to this patient's care Thank you for the consultation. Past History Past Medical History: acute DC, anemia, CAD, cancer (endometrial cancer), diabetes (1), hypertension, hyperlipidemia, PVD, seizures, other (severe debility, malnutrition,, major depressive disorder, chronic pain, dementia) Past Surgical History: hysterectomy Social history: other (resident of [facility]) Family history: no significant family history Medications and Allergies Allergies Allergy/AdvReac Type Severity Reaction Status Date / Time No Known Allergies Allergy Unverified 06/05/17 13:30 Home Medications Medication Instructions Recorded Confirmed Last Taken Type Aspirin 81 mg PO DAILY 11/14/17 08/22/18 Unknown History Megestrol Acetate 800 mg PO DAILY 11/14/17 08/22/18 Unknown History OLANZapine [Zyprexa] 2.5 mg PO DAILY 11/14/17 08/22/18 Unknown History FLUoxetine [PROzac] 40 mg PO QDAY #30 capsule 11/26/17 08/22/18 Unknown Rx Ferrous Sulfate [Ferrous Sulfate 300 mg PO QDAY #30 oral.liqd 11/26/17 08/22/18 Unknown Rx Oral Liq 300 Mg/5 Ml] Pantoprazole [Protonix TAB] 40 mg PO QDAY #30 tablet 11/26/17 08/22/18 Unknown Rx amLODIPine [Norvasc] 10 mg PO DAILY #30 tablet 11/26/17 08/22/18 Unknown Rx Carvedilol [Coreg] 25 mg PO BID tablet 12/06/17 08/22/18 Unknown Rx cloNIDine [Catapres] 0.1 mg PO Q8H tablet 12/06/17 08/22/18 Unknown Rx traMADol [Ultram 50 MG tab] 50 mg PO Q12HR PRN #20 tablet 12/06/17 08/22/18 Unknown Rx Acetaminophen 325 mg PO Q6H PRN 12/22/17 08/22/18 Unknown History Glucagon HCl 1 mg IM ONCE PRN 12/22/17 08/22/18 Unknown History Klor-Con 10 10 meq PO DAILY 12/22/17 08/22/18 Unknown History Lispro Insulin [HumaLOG] See Protocol SC ACHS 12/22/17 08/22/18 Unknown History Simethicone 80 mg PO Q8H PRN 12/22/17 08/22/18 Unknown History levETIRAcetam [Keppra ORAL LIQ] 750 mg PO BID 30 Days bottle 01/04/18 08/22/18 Unknown Rx Active Meds: Active Medications Acetaminophen (Tylenol) 650 mg PO Q4H PRN PRN Reason: Pain MILD(1-3)/Fever >100.5/CARTER Dextrose (D50w (25gm) Syringe) 50 ml IV PRN PRN PRN Reason: Hypoglycemia Heparin Sodium (Porcine) (Heparin) 5,000 unit SUB-Q Q12HR NASH Nicardipine HCl 50 mg/ Sodium (Chloride) 250 mls @ 25 mls/hr IV TITR NASH; Protocol Last Admin: 08/23/18 08:13 Dose: 15 mg/hr, 75 mls/hr Documented by: Ceftriaxone Sodium (Rocephin/Ns 1 Gm/50 Ml) 1 gm in 50 mls @ 100 mls/hr IV Q24HR NASH; Protocol Sodium Chloride (Nacl 0.45% 1000 Ml) 1,000 mls @ 75 mls/hr IV DIRECT NASH Last Admin: 08/23/18 04:04 Dose: 75 mls/hr Documented by: Levetiracetam 1,000 mg/ (Dextrose) 110 mls @ 400 mls/hr IV Q12HR NASH Insulin Human Regular (Humulin R) 0 units SUB-Q Q6HR NASH; Protocol Last Admin: 08/23/18 05:08 Dose: 4 units Documented by: Lorazepam (Ativan) 1 mg IV Q4H PRN PRN Reason: Seizures Ondansetron HCl (Zofran) 4 mg IV Q8H PRN PRN Reason: Nausea And Vomiting Sodium Chloride (Sodium Chloride Flush Syringe 10 Ml) 10 ml IV BID NASH Last Admin: 08/23/18 00:51 Dose: 10 ml Documented by: Sodium Chloride (Sodium Chloride Flush Syringe 10 Ml) 10 ml IV PRN PRN PRN Reason: LINE FLUSH Exam - Vital Signs Vital signs: Vital Signs Pulse Resp Pulse Ox 71 26 H 98 08/22/18 15:54 08/22/18 15:54 08/22/18 15:54 Results - Lab Results 08/22/18 18:03 08/22/18 18:03 Most recent lab results Calcium 9.4 mg/dL (8.4-10.2) 08/22/18 18:03
[2018-08-23 09:21] LABS: Hematocrit 36.9 % (30.3-42.9); Hemoglobin 12.1 gm/dl (10.1-14.3); Mean Corpuscular HGB Conc 33 % (30-34); Mean Corpuscular Volume 86 fl (79-97); Red Cell Distribution Width 15.8 % (13.2-15.2)
[2018-08-23 09:41] LABS: Albumin 3.1 g/dL (3.9-5); Calcium 9.2 mg/dL (8.4-10.2)
[2018-08-23 09:42] LABS: Uric Acid 7.7 mg/dL (3.5-7.6)
[2018-08-23] MEDS ORDERED: KEPPRA 750 MG in D5W 100 ML IV SCH (10:00)
[2018-08-23] MEDS: KEPPRA 1,000 MG in D5W 100 ML IV SCH ×2 (10:41→22:47)
[2018-08-23 10:46] LABS: Basophils % (Manual) 0 % (0.0-1.8); Eosinophils % (Manual) 0 % (0.0-4.3); Platelet Estimate Consistent w Auto; RBC Morphology Normal; Total Cells Counted 100
[2018-08-23 10:47] LABS: Platelet Count 284 K/mm3 (140-440)
[2018-08-23] MEDS: HEPARIN SUB-Q SCH ×2 (10:48→22:48)
[2018-08-23] MEDS: ROCEPHIN/NS 1 GM/50 ML 1 GM/50 ML BAG IV SCH (10:48)
--- NOTE | 2018-08-23 11:15 | Event Note ---
Date: 08/23/18 I spoke with one of the timber hand who saw this patient during last admit and they are fine with a midline. I have discussed this with the daughter of the patient who states that she has been a difficult stick in the past as well as the IV nurse who is now in the ICU currently. Daughter is awaiting phone call for consent.
--- NOTE | 2018-08-23 11:19 | Consultation ---
History of Present Illness - Reason for Consult Consult date: 08/23/18 Hypertensive Emergency Requesting physician: ASHLEY CAICEDO - History of Present Illness 62 y/o female from [facility] admitted with seizures and hypertensive emergency. Patient with known history of seizure before, diagnosed in November of last year. Was on Keppra 750 BID as an outpatient. Currently patient is still altered and per daughter suffers from aphasia from prior stroke. Per report, patient had a seizure that lasted over 10 minutes. It was aborted here in the ED and patient did not require intubation. Her BP was very elevated and she was started on Cardene drip via an IO as no peripheral access could be obtained. Remainder of the review is negative. Past History Past Medical History: acute DC, anemia, CAD, cancer (endometrial cancer), diabetes (1), hypertension, hyperlipidemia, PVD, seizures, other (severe debility, malnutrition,, major depressive disorder, chronic pain, dementia and prior CVA) Past Surgical History: hysterectomy Social history: other (resident of [facility]) Family history: no significant family history Medications and Allergies Allergies Allergy/AdvReac Type Severity Reaction Status Date / Time No Known Allergies Allergy Unverified 06/05/17 13:30 Home Medications Medication Instructions Recorded Confirmed Last Taken Type Aspirin 81 mg PO DAILY 11/14/17 08/22/18 Unknown History Megestrol Acetate 800 mg PO DAILY 11/14/17 08/22/18 Unknown History OLANZapine [Zyprexa] 2.5 mg PO DAILY 11/14/17 08/22/18 Unknown History FLUoxetine [PROzac] 40 mg PO QDAY #30 capsule 11/26/17 08/22/18 Unknown Rx Ferrous Sulfate [Ferrous Sulfate 300 mg PO QDAY #30 oral.liqd 11/26/17 08/22/18 Unknown Rx Oral Liq 300 Mg/5 Ml] Pantoprazole [Protonix TAB] 40 mg PO QDAY #30 tablet 11/26/17 08/22/18 Unknown Rx amLODIPine [Norvasc] 10 mg PO DAILY #30 tablet 11/26/17 08/22/18 Unknown Rx Carvedilol [Coreg] 25 mg PO BID tablet 12/06/17 08/22/18 Unknown Rx cloNIDine [Catapres] 0.1 mg PO Q8H tablet 12/06/17 08/22/18 Unknown Rx traMADol [Ultram 50 MG tab] 50 mg PO Q12HR PRN #20 tablet 12/06/17 08/22/18 Unknown Rx Acetaminophen 325 mg PO Q6H PRN 12/22/17 08/22/18 Unknown History Glucagon HCl 1 mg IM ONCE PRN 12/22/17 08/22/18 Unknown History Klor-Con 10 10 meq PO DAILY 12/22/17 08/22/18 Unknown History Lispro Insulin [HumaLOG] See Protocol SC ACHS 12/22/17 08/22/18 Unknown History Simethicone 80 mg PO Q8H PRN 12/22/17 08/22/18 Unknown History levETIRAcetam [Keppra ORAL LIQ] 750 mg PO BID 30 Days bottle 01/04/18 08/22/18 Unknown Rx Active Meds: Active Medications Acetaminophen (Tylenol) 650 mg PO Q4H PRN PRN Reason: Pain MILD(1-3)/Fever >100.5/CARTER Dextrose (D50w (25gm) Syringe) 50 ml IV PRN PRN PRN Reason: Hypoglycemia Heparin Sodium (Porcine) (Heparin) 5,000 unit SUB-Q Q12HR NASH Last Admin: 08/23/18 10:48 Dose: 5,000 unit Documented by: Nicardipine HCl 50 mg/ Sodium (Chloride) 250 mls @ 25 mls/hr IV TITR NASH; Protocol Last Admin: 08/23/18 11:01 Dose: 15 mg/hr, 75 mls/hr Documented by: Ceftriaxone Sodium (Rocephin/Ns 1 Gm/50 Ml) 1 gm in 50 mls @ 100 mls/hr IV Q24HR NASH; Protocol Last Admin: 08/23/18 10:48 Dose: 100 mls/hr Documented by: Sodium Chloride (Nacl 0.45% 1000 Ml) 1,000 mls @ 75 mls/hr IV DIRECT NASH Last Admin: 08/23/18 04:04 Dose: 75 mls/hr Documented by: Levetiracetam 1,000 mg/ (Dextrose) 110 mls @ 400 mls/hr IV Q12HR NASH Last Admin: 08/23/18 10:41 Dose: 400 mls/hr Documented by: Insulin Human Regular (Humulin R) 0 units SUB-Q Q6HR NASH; Protocol Last Admin: 08/23/18 05:08 Dose: 4 units Documented by: Lorazepam (Ativan) 1 mg IV Q4H PRN PRN Reason: Seizures Ondansetron HCl (Zofran) 4 mg IV Q8H PRN PRN Reason: Nausea And Vomiting Sodium Chloride (Sodium Chloride Flush Syringe 10 Ml) 10 ml IV BID NASH Last Admin: 08/23/18 10:48 Dose: 10 ml Documented by: Sodium Chloride (Sodium Chloride Flush Syringe 10 Ml) 10 ml IV PRN PRN PRN Reason: LINE FLUSH Review of Systems All systems: negative Exam - Constitutional Vitals: Temp Pulse Resp BP Pulse Ox 99.9 F H 83 24 156/60 99 08/23/18 08:00 08/23/18 10:20 08/23/18 10:20 08/23/18 10:20 08/23/18 10:20 General appearance: Present: no acute distress, well-nourished, obese - EENT Eyes: Present: PERRL, EOM intact ENT: hearing intact - Neck Neck: Present: supple, normal ROM - Respiratory Respiratory effort: normal Respiratory: bilateral: CTA - Cardiovascular Rhythm: regular Heart Sounds: Present: S1 & S2 - Extremities Extremities: abnormal (left AKA) - Abdominal General gastrointestinal: Present: soft, non-tender Female genitourinary: Present: deferred - Rectal Rectal Exam: deferred - Musculoskeletal Musculoskeletal: generalized weakness Results - Labs CBC & Chem 7: 08/23/18 09:05 08/23/18 09:05 Labs: Abnormal lab results 08/22/18 08/22/18 08/22/18 Range/Units 18:03 18:03 19:45 WBC (4.5-11.0) K/mm3 RDW 15.9 H (13.2-15.2) % Seg Neutrophils % 82.7 H (40.0-70.0) % Seg Neuts % (Manual) (40.0-70.0) % Lymphocytes % (Manual) (13.4-35.0) % Seg Neutrophils # 8.5 H (1.8-7.7) K/mm3 Seg Neutrophils # Man (1.8-7.7) K/mm3 Carbon Dioxide 16 L (22-30) mmol/L BUN 36 H (7-17) mg/dL Creatinine 2.3 H (0.7-1.2) mg/dL Glucose 318 H (65-100) mg/dL POC Glucose (70-105) Hemoglobin A1c (4-6) % Uric Acid (3.5-7.6) mg/dL Total Creatine Kinase (30-135) units/L Albumin 3.1 L (3.9-5) g/dL Triglycerides (2-149) mg/dL Cholesterol (50-199) mg/dL LDL Cholesterol Direct (50-130) mg/dL HDL Cholesterol (40-59) mg/dL Urine WBC (Auto) 42.0 H (0.0-6.0) /HPF 08/23/18 08/23/18 08/23/18 Range/Units 01:03 01:57 04:08 WBC (4.5-11.0) K/mm3 RDW (13.2-15.2) % Seg Neutrophils % (40.0-70.0) % Seg Neuts % (Manual) (40.0-70.0) % Lymphocytes % (Manual) (13.4-35.0) % Seg Neutrophils # (1.8-7.7) K/mm3 Seg Neutrophils # Man (1.8-7.7) K/mm3 Carbon Dioxide (22-30) mmol/L BUN (7-17) mg/dL Creatinine (0.7-1.2) mg/dL Glucose (65-100) mg/dL POC Glucose 200 H (70-105) Hemoglobin A1c 8.3 H (4-6) % Uric Acid (3.5-7.6) mg/dL Total Creatine Kinase (30-135) units/L Albumin (3.9-5) g/dL Triglycerides 160 H (2-149) mg/dL Cholesterol 325 H (50-199) mg/dL LDL Cholesterol Direct 248 H (50-130) mg/dL HDL Cholesterol 60 H (40-59) mg/dL Urine WBC (Auto) (0.0-6.0) /HPF 08/23/18 08/23/18 08/23/18 Range/Units 05:06 09:05 09:05 WBC 19.9 H (4.5-11.0) K/mm3 RDW 15.8 H (13.2-15.2) % Seg Neutrophils % (40.0-70.0) % Seg Neuts % (Manual) 90.0 H (40.0-70.0) % Lymphocytes % (Manual) 8.0 L (13.4-35.0) % Seg Neutrophils # (1.8-7.7) K/mm3 Seg Neutrophils # Man 17.9 H (1.8-7.7) K/mm3 Carbon Dioxide 18 L (22-30) mmol/L BUN 39 H (7-17) mg/dL Creatinine 2.4 H (0.7-1.2) mg/dL Glucose 269 H (65-100) mg/dL POC Glucose 268 H (70-105) Hemoglobin A1c (4-6) % Uric Acid (3.5-7.6) mg/dL Total Creatine Kinase (30-135) units/L Albumin 3.1 L (3.9-5) g/dL Triglycerides (2-149) mg/dL Cholesterol (50-199) mg/dL LDL Cholesterol Direct (50-130) mg/dL HDL Cholesterol (40-59) mg/dL Urine WBC (Auto) (0.0-6.0) /HPF 08/23/18 Range/Units 09:05 WBC (4.5-11.0) K/mm3 RDW (13.2-15.2) % Seg Neutrophils % (40.0-70.0) % Seg Neuts % (Manual) (40.0-70.0) % Lymphocytes % (Manual) (13.4-35.0) % Seg Neutrophils # (1.8-7.7) K/mm3 Seg Neutrophils # Man (1.8-7.7) K/mm3 Carbon Dioxide (22-30) mmol/L BUN (7-17) mg/dL Creatinine (0.7-1.2) mg/dL Glucose (65-100) mg/dL POC Glucose (70-105) Hemoglobin A1c (4-6) % Uric Acid 7.7 H (3.5-7.6) mg/dL Total Creatine Kinase 612 H (30-135) units/L Albumin (3.9-5) g/dL Triglycerides (2-149) mg/dL Cholesterol (50-199) mg/dL LDL Cholesterol Direct (50-130) mg/dL HDL Cholesterol (40-59) mg/dL Urine WBC (Auto) (0.0-6.0) /HPF - Imaging and Cardiology CT Scan - head: report reviewed Assessment and Plan 62 y/o female with seizures, likely secondary to hypertensive Emergency and acute on chronic renal failure. 1. Continue Cardene drip. From speaking with daughter, patient takes a while to bounce back from episodes like this in regards to swallowing. Will order DH tube placement and start oral therapy. 2. Spoke with IV team and renal, ok with midline but if peripherals can be found, that is ok as well 3. Seizures have been aborted. Keppra increased to 1gram BID 4. Asked nursing to bladder scan patient and if more than 250 present, please place fernandez. Renal already consulted. 5. NPO for now. CCT 31 minutes.
--- NOTE | 2018-08-23 14:40 | XRay Report ---
ABDOMEN 1 VIEW(S) INDICATION / CLINICAL INFORMATION: Feeding tube placement. COMPARISON: None available. FINDINGS: TUBES / LINES: The feeding tube has been inserted which terminates in the fundus of the stomach. BOWEL GAS PATTERN: No significant abnormality. FREE AIR / EXTRALUMINAL GAS: None seen. ADDITIONAL FINDINGS: No significant additional findings. IMPRESSION: 1. No significant abnormality. The feeding tube terminates in the fundus of the stomach. Signer Name: Antoine Holder Jr, MD Signed: 08/23/2018 2:35 PM Workstation Name: [id number]
[2018-08-23] MEDS ORDERED: SIMPLE SYRUP FEEDTUBE PRN ×2 (15:27)
[2018-08-23] MEDS ORDERED: SODIUM BICARBONATE FEEDTUBE PRN (15:27)
[2018-08-23] MEDS ORDERED: PANCREAZE DR 10,500 UNIT FEEDTUBE PRN (15:27)
[2018-08-23] MEDS: CATAPRES PO SCH ×2 (15:44→22:48)
--- NOTE | 2018-08-23 18:07 | Consultation ---
History of Present Illness Consult date: 08/23/18 Chief complaint: seizure History of present illness: This is a 62 YO F who lives in a local senior living with known history of seizures who presented with prolonged seizure activity. Finally stopped after Ativan. No family at bedside. Pt is debilitated but exact baseline is not clear. She will track but is not speaking nor following commands. Past History Past Medical History: acute NE, anemia, CAD, cancer (endometrial cancer), diabetes (1), hypertension, hyperlipidemia, PVD, seizures, other (severe debility, malnutrition,, major depressive disorder, chronic pain, dementia and prior CVA) Past Surgical History: hysterectomy Social history: other (resident of [facility]) Family history: no significant family history Medications and Allergies Allergies Allergy/AdvReac Type Severity Reaction Status Date / Time No Known Allergies Allergy Unverified 06/05/17 13:30 Home Medications Medication Instructions Recorded Confirmed Last Taken Type Aspirin 81 mg PO DAILY 11/14/17 08/22/18 Unknown History Megestrol Acetate 800 mg PO DAILY 11/14/17 08/22/18 Unknown History OLANZapine [Zyprexa] 2.5 mg PO DAILY 11/14/17 08/22/18 Unknown History FLUoxetine [PROzac] 40 mg PO QDAY #30 capsule 11/26/17 08/22/18 Unknown Rx Ferrous Sulfate [Ferrous Sulfate 300 mg PO QDAY #30 oral.liqd 11/26/17 08/22/18 Unknown Rx Oral Liq 300 Mg/5 Ml] Pantoprazole [Protonix TAB] 40 mg PO QDAY #30 tablet 11/26/17 08/22/18 Unknown Rx amLODIPine [Norvasc] 10 mg PO DAILY #30 tablet 11/26/17 08/22/18 Unknown Rx Carvedilol [Coreg] 25 mg PO BID tablet 12/06/17 08/22/18 Unknown Rx cloNIDine [Catapres] 0.1 mg PO Q8H tablet 12/06/17 08/22/18 Unknown Rx traMADol [Ultram 50 MG tab] 50 mg PO Q12HR PRN #20 tablet 12/06/17 08/22/18 Unknown Rx Acetaminophen 325 mg PO Q6H PRN 12/22/17 08/22/18 Unknown History Glucagon HCl 1 mg IM ONCE PRN 12/22/17 08/22/18 Unknown History Klor-Con 10 10 meq PO DAILY 12/22/17 08/22/18 Unknown History Lispro Insulin [HumaLOG] See Protocol SC ACHS 12/22/17 08/22/18 Unknown History Simethicone 80 mg PO Q8H PRN 12/22/17 08/22/18 Unknown History levETIRAcetam [Keppra ORAL LIQ] 750 mg PO BID 30 Days bottle 01/04/18 08/22/18 Unknown Rx Active Meds: Active Medications Acetaminophen (Tylenol) 650 mg PO Q4H PRN PRN Reason: Pain MILD(1-3)/Fever >100.5/CARTER Lipase/Protease/Amylase (Pancreaze Dr 10,500 Unit) 1 each FEEDTUBE PRN PRN PRN Reason: For Clogged Feeding Tube Clonidine HCl (Catapres) 0.1 mg PO Q8HR NASH Last Admin: 08/23/18 15:44 Dose: 0.1 mg Documented by: Dextrose (D50w (25gm) Syringe) 50 ml IV PRN PRN PRN Reason: Hypoglycemia Heparin Sodium (Porcine) (Heparin) 5,000 unit SUB-Q Q12HR NASH Last Admin: 08/23/18 10:48 Dose: 5,000 unit Documented by: Nicardipine HCl 50 mg/ Sodium (Chloride) 250 mls @ 25 mls/hr IV TITR NASH; P rotocol Last Titration: 08/23/18 16:20 Dose: 12 mg/hr, 60 mls/hr Documented by: Ceftriaxone Sodium (Rocephin/Ns 1 Gm/50 Ml) 1 gm in 50 mls @ 100 mls/hr IV Q24HR NASH; Protocol Last Admin: 08/23/18 10:48 Dose: 100 mls/hr Documented by: Sodium Chloride (Nacl 0.45% 1000 Ml) 1,000 mls @ 75 mls/hr IV DIRECT NASH Last Admin: 08/23/18 04:04 Dose: 75 mls/hr Documented by: Levetiracetam 1,000 mg/ (Dextrose) 110 mls @ 400 mls/hr IV Q12HR NASH Last Admin: 08/23/18 10:41 Dose: 400 mls/hr Documented by: Insulin Human Regular (Humulin R) 0 units SUB-Q Q6HR NASH; Protocol Last Admin: 08/23/18 14:21 Dose: 6 units Documented by: Lorazepam (Ativan) 1 mg IV Q4H PRN PRN Reason: Seizures Ondansetron HCl (Zofran) 4 mg IV Q8H PRN PRN Reason: Nausea And Vomiting Simple Syrup (Simple Syrup) 15 ml FEEDTUBE PRN PRN PRN Reason: Hypoglycemia Simple Syrup (Simple Syrup) 30 ml FEEDTUBE PRN PRN PRN Reason: Hypoglycemia Sodium Bicarbonate (Sodium Bicarbonate) 325 mg FEEDTUBE PRN PRN PRN Reason: For Clogged Feeding Tube Sodium Chloride (Sodium Chloride Flush Syringe 10 Ml) 10 ml IV BID NASH Last Admin: 08/23/18 10:48 Dose: 10 ml Documented by: Sodium Chloride (Sodium Chloride Flush Syringe 10 Ml) 10 ml IV PRN PRN PRN Reason: LINE FLUSH Review of Systems ROS unobtainable: due to mental status Physical Examination - Vital Signs Vital Signs: Vital Signs Pulse Resp Pulse Ox 71 26 H 98 08/22/18 15:54 08/22/18 15:54 08/22/18 15:54 - Constitutional General appearance: comfortable - EENT EENT: Present: PERRL, mucous membranes moist - Respiratory Respiratory: Present: lungs clear - Cardiovascular Cardiovascular: Present: regular rate - Gastrointestinal Gastrointestinal: Present: normoactive bowel sounds - Neurologic Cranial nerve examination: PERRL, EOMI, face symmetric Motor examination - right side: 1/5: biceps, triceps, wrist flexion, wrist extension, orthopedics pediatric physician, hip flexors, knee extensors, dorsiflexion, toe extension (EHL), plantarflexion Motor examination - left side: 15: biceps, triceps, wrist flexion, wrist extension, orthopedics pediatric physician, hip flexors, knee extensors, dorsiflexion, toe extension (EHL), plantarflexion (increased tone on the left) Results - Laboratory Findings CBC and BMP: 08/23/18 09:05 08/23/18 09:05 Abnormal Lab Findings: Abnormal Labs 08/22/18 08/22/18 08/22/18 18:03 18:03 19:45 WBC RDW 15.9 H Seg Neutrophils % 82.7 H Seg Neuts % (Manual) Lymphocytes % (Manual) Seg Neutrophils # 8.5 H Seg Neutrophils # Man Carbon Dioxide 16 L BUN 36 H Creatinine 2.3 H Glucose 318 H POC Glucose Hemoglobin A1c Uric Acid Total Creatine Kinase Albumin 3.1 L Triglycerides Cholesterol LDL Cholesterol Direct HDL Cholesterol Urine WBC (Auto) 42.0 H 08/23/18 08/23/18 08/23/18 01:03 01:57 04:08 WBC RDW Seg Neutrophils % Seg Neuts % (Manual) Lymphocytes % (Manual) Seg Neutrophils # Seg Neutrophils # Man Carbon Dioxide BUN Creatinine Glucose POC Glucose 200 H Hemoglobin A1c 8.3 H Uric Acid Total Creatine Kinase Albumin Triglycerides 160 H Cholesterol 325 H LDL Cholesterol Direct 248 H HDL Cholesterol 60 H Urine WBC (Auto) 08/23/18 08/23/18 08/23/18 05:06 09:05 09:05 WBC 19.9 H RDW 15.8 H Seg Neutrophils % Seg Neuts % (Manual) 90.0 H Lymphocytes % (Manual) 8.0 L Seg Neutrophils # Seg Neutrophils # Man 17.9 H Carbon Dioxide 18 L BUN 39 H Creatinine 2.4 H Glucose 269 H POC Glucose 268 H Hemoglobin A1c Uric Acid Total Creatine Kinase Albumin 3.1 L Triglycerides Cholesterol LDL Cholesterol Direct HDL Cholesterol Urine WBC (Auto) 08/23/18 08/23/18 09:05 13:15 WBC RDW Seg Neutrophils % Seg Neuts % (Manual) Lymphocytes % (Manual) Seg Neutrophils # Seg Neutrophils # Man Carbon Dioxide BUN Creatinine Glucose POC Glucose 303 H Hemoglobin A1c Uric Acid 7.7 H Total Creatine Kinase 612 H Albumin Triglycerides Cholesterol LDL Cholesterol Direct HDL Cholesterol Urine WBC (Auto) Assessment and Plan This is a 62 YO with break thru seizure. Assuming pt is compliant with meds. Has developed a leukocytosis. Recommend: Will increase Keppra to 1000 mg BID(750 mg BID is home dose) EEG CT head noted with extensive right sided encephalomalacia Continue care for all medical issues as you are doing Further recommendations once more test resutls are available Call with questions.
[2018-08-24] MEDS: CARDENE 50 MG in NACL 0.9% 250ML 230 ML IV SCH ×2 (03:10→05:56)
[2018-08-24 05:42] LABS: Red Blood Count TNR M/mm3 (3.65-5.03)
[2018-08-24 05:43] LABS: Hematocrit TNR % (30.3-42.9); Hemoglobin TNR gm/dl (10.1-14.3); Mean Corpuscular Volume TNR fl (79-97)
[2018-08-24 05:44] LABS: Mean Corpuscular HGB Conc TNR % (30-34); Platelet Count TNR K/mm3 (140-440); Red Cell Distribution Width TNR % (13.2-15.2)
[2018-08-24] MEDS: HumuLIN R SUB-Q SCH ×4 (05:53→23:57)
[2018-08-24] MEDS: CATAPRES PO SCH (05:56)
--- NOTE | 2018-08-24 07:40 | Progress Note ---
Assessment and Plan Assessment and plan: --Hypertensive Emergency: Blood pressures is Titrate and DC cardine drip, continue multiple antihypertensives Adjust dosages as needed --Status epilepticus: Seizure precautions, increase keppra to 1000mg bid Ativan when necessary, nephrology following, follow neuro workup --CLINT on CKD 3: Vasomotor nephropathy Gentle hydration, monitor renal function, avoid nephrotoxins, Nephrology evaluation --Possible UTI ; present on admission Empiric antibiotics, follow cultures, supportive care-- Moderate to severe malnutrition: Nutrition supplements Supportive care, nutrition consult if needed --Severe debility; physical therapy occupational therapy Supportive care --Moderate malnutrition/hypoalbuminemia; Nutrition supplements, nutrition consult, supportive care --Insulin-dependent diabetes; Accu-Chek sliding scale coverage and ADA diet Insulin as needed,hemoglobin A1c 8.3 --History of left AKA: Supportive care --History of seizures; seizure precautions Antiepileptic medications, neurology evaluation --History of endometrial cancer status post hysterectomy Check MRI of the brain, to rule out possible metastatic lesions --History of major depression; continue current antidepression medications Psych evaluation if needed --Dyslipidemia; stable on lipid-lowering medicine, low-cholesterol diet --DVT Prophylaxis; Lovenox Monitor closely and adjust the management as needed Plan of care is reviewed with the patient, and her nurse Critical care time 33 minutes Follow blood pressures closely and Transfer Patient out of ICU to med floor if stable History Interval history: Patient seen and examined this morning, patient's chart reviewed No overnight events reported by the nursing Patient did not have any new episodes of seizures Blood pressure is reasonably controlled, off Cardene drip Patient is sleeping easily awakens Vital signs reviewed Hospitalist Physical - Constitutional Vitals: Temp Pulse Resp BP Pulse Ox 99.5 F 74 21 167/47 99 08/24/18 04:00 08/24/18 06:31 08/24/18 06:31 08/24/18 06:31 08/24/18 06:31 General appearance: Present: no acute distress, well-nourished, obese - EENT Eyes: Present: PERRL, EOM intact - Neck Neck: Present: supple, normal ROM - Respiratory Respiratory effort: normal Respiratory: bilateral: diminished, rhonchi, negative: rales, wheezing - Cardiovascular Rhythm: regular Heart Sounds: Present: S1 & S2 - Extremities Extremities: no ischemia, pulses intact - Abdominal General gastrointestinal: soft, non-tender, non-distended, normal bowel sounds - Integumentary Integumentary: Present: clear, warm - Psychiatric Psychiatric: appropriate mood/affect, cooperative - Neurologic Neurologic: CNII-XII intact, moves all extremities Results - Labs CBC & Chem 7: 08/24/18 04:37 08/24/18 08:05 Labs: Laboratory Last Values WBC TNR 08/24/18 04:37 RBC TNR 08/24/18 04:37 Hgb TNR 08/24/18 04:37 Hct TNR 08/24/18 04:37 MCV TNR 08/24/18 04:37 MCH TNR 08/24/18 04:37 MCHC TNR 08/24/18 04:37 RDW TNR 08/24/18 04:37 Plt Count TNR 08/24/18 04:37 Lymph % (Auto) Per Diem Nurse 08/24/18 04:37 Pershing % (Auto) Per Diem Nurse 08/24/18 04:37 Eos % (Auto) Per Diem Nurse 08/24/18 04:37 Baso % (Auto) Per Diem Nurse 08/24/18 04:37 Lymph # Per Diem Nurse 08/24/18 04:37 Pershing # Per Diem Nurse 08/24/18 04:37 Eos # Per Diem Nurse 08/24/18 04:37 Baso # Per Diem Nurse 08/24/18 04:37 Add Manual Diff Complete 08/23/18 09:05 Total Counted 100 08/23/18 09:05 Seg Neutrophils % Per Diem Nurse 08/24/18 04:37 Seg Neuts % (Manual) 90.0 % (40.0-70.0) H 08/23/18 09:05 0 % 08/23/18 09:05 8.0 % (13.4-35.0) L 08/23/18 09:05 Reactive Lymphs % (Man) 0 % 08/23/18 09:05 2.0 % (0.0-7.3) 08/23/18 09:05 0 % (0.0-4.3) 08/23/18 09:05 0 % (0.0-1.8) 08/23/18 09:05 0 % 08/23/18 09:05 0 % 08/23/18 09:05 0 % 08/23/18 09:05 0 % 08/23/18 09:05 Nucleated RBC % Not Reportable 08/23/18 09:05 Seg Neutrophils # Per Diem Nurse 08/24/18 04:37 Seg Neutrophils # Man 17.9 K/mm3 (1.8-7.7) H 08/23/18 09:05 Band Neutrophils # 0.0 K/mm3 08/23/18 09:05 1.6 K/mm3 (1.2-5.4) 08/23/18 09:05 Abs React Lymphs (Man) 0.0 K/mm3 08/23/18 09:05 0.4 K/mm3 (0.0-0.8) 08/23/18 09:05 0.0 K/mm3 (0.0-0.4) 08/23/18 09:05 0.0 K/mm3 (0.0-0.1) 08/23/18 09:05 0.0 K/mm3 08/23/18 09:05 0.0 K/mm3 08/23/18 09:05 0.0 K/mm3 08/23/18 09:05 Blast Cells # 0.0 K/mm3 08/23/18 09:05 WBC Morphology Not Reportable 08/23/18 09:05 Hypersegmented Neuts Not Reportable 08/23/18 09:05 Hyposegmented Neuts Not Reportable 08/23/18 09:05 Hypogranular Neuts Not Reportable 08/23/18 09:05 Not Reportable 08/23/18 09:05 Not Reportable 08/23/18 09:05 Not Reportable 08/23/18 09:05 Not Reportable 08/23/18 09:05 Not Reportable 08/23/18 09:05 Not Reportable 08/23/18 09:05 Consistent w auto 08/23/18 09:05 Not Reportable 08/23/18 09:05 Plt Clumps, EDTA Not Reportable 08/23/18 09:05 Not Reportable 08/23/18 09:05 Not Reportable 08/23/18 09:05 Not Reportable 08/23/18 09:05 Plt Morphology Comment Not Reportable 08/23/18 09:05 RBC Morphology Normal 08/23/18 09:05 Dimorphic RBCs Not Reportable 08/23/18 09:05 Not Reportable 08/23/18 09:05 Not Reportable 08/23/18 09:05 Not Reportable 08/23/18 09:05 Not Reportable 08/23/18 09:05 Not Reportable 08/23/18 09:05 Not Reportable 08/23/18 09:05 Not Reportable 08/23/18 09:05 Not Reportable 08/23/18 09:05 Not Reportable 08/23/18 09:05 Not Reportable 08/23/18 09:05 Not Reportable 08/23/18 09:05 Not Reportable 08/23/18 09:05 Not Reportable 08/23/18 09:05 Not Reportable 08/23/18 09:05 Not Reportable 08/23/18 09:05 Not Reportable 08/23/18 09:05 Not Reportable 08/23/18 09:05 Not Reportable 08/23/18 09:05 Not Reportable 08/23/18 09:05 Acanthocytes (Spur) Not Reportable 08/23/18 09:05 Rouleaux Not Reportable 08/23/18 09:05 Not Reportable 08/23/18 09:05 Not Reportable 08/23/18 09:05 Not Reportable 08/23/18 09:05 Not Reportable 08/23/18 09:05 Hem Pathologist Commnt No 08/23/18 09:05 Sodium 140 mmol/L (137-145) 08/23/18 09:05 Potassium 4.0 mmol/L (3.6-5.0) 08/23/18 09:05 Chloride 105.6 mmol/L (98-107) 08/23/18 09:05 Carbon Dioxide 18 mmol/L (22-30) L 08/23/18 09:05 20 mmol/L 08/23/18 09:05 BUN 39 mg/dL (7-17) H 08/23/18 09:05 2.4 mg/dL (0.7-1.2) H 08/23/18 09:05 Estimated GFR 25 ml/min 08/23/18 09:05 16 % 08/23/18 09:05 Glucose 269 mg/dL (65-100) H 08/23/18 09:05 POC Glucose 139 (70-105) H 08/24/18 05:43 8.3 % (4-6) H 08/23/18 01:03 313 Mosm/kg 08/23/18 10:10 Lactic Acid 0.80 mmol/L (0.7-2.0) 08/23/18 10:10 7.7 mg/dL (3.5-7.6) H 08/23/18 09:05 Calcium 9.2 mg/dL (8.4-10.2) 08/23/18 09:05 Phosphorus 3.70 mg/dL (2.5-4.5) 08/23/18 09:05 Magnesium 1.70 mg/dL (1.7-2.3) 08/23/18 09:05 0.30 mg/dL (0.1-1.2) 08/23/18 09:05 AST 19 units/L (5-40) 08/23/18 09:05 ALT 7 units/L (7-56) 08/23/18 09:05 93 units/L (35-129) 08/23/18 09:05 612 units/L (30-135) H 08/23/18 09:05 7.4 g/dL (6.3-8.2) 08/23/18 09:05 3.1 g/dL (3.9-5) L 08/23/18 09:05 0.7 % 08/23/18 09:05 Triglycerides 160 mg/dL (2-149) H 08/23/18 04:08 Cholesterol 325 mg/dL (50-199) H 08/23/18 04:08 248 mg/dL (50-130) H 08/23/18 04:08 60 mg/dL (40-59) H 08/23/18 04:08 5.41 % 08/23/18 04:08 Gracia (Yellow) 08/22/18 19:45 Cloudy (Clear) 08/22/18 19:45 6.0 (5.0-7.0) 08/22/18 19:45 Ur Specific [place] 1.024 (1.003-1.030) 08/22/18 19:45 >500 mg/dL (Negative) 08/22/18 19:45 150 mg/dL (Negative) 08/22/18 19:45 Neg mg/dL (Negative) 08/22/18 19:45 Sm (Negative) 08/22/18 19:45 Neg (Negative) 08/22/18 19:45 Neg (Negative) 08/22/18 19:45 < 2.0 mg/dL (<2.0) 08/22/18 19:45 Ur Leukocyte Esterase Tr (Negative) 08/22/18 19:45 42.0 /HPF (0.0-6.0) H 08/22/18 19:45 11.0 /HPF (0.0-6.0) 08/22/18 19:45 U Epithel Cells (Auto) 4.0 /HPF (0-13.0) 08/22/18 19:45 4+ /HPF (Negative) 08/22/18 19:45 Hyaline Casts 7 /LPF 08/22/18 19:45 1+ /HPF 08/22/18 19:45 Active Medications - Current Medications Current Medications: Generic Name Dose Route Start Last Admin Trade Name Freq PRN Reason Stop Dose Admin Acetaminophen 650 mg 08/22/18 23:50 Tylenol PO Q4H PRN Pain MILD(1-3)/Fever >100.5/CARTER Amlodipine Besylate 10 mg 08/24/18 10:00 Norvasc PO DAILY [facility] Lipase/Protease/Amylase 1 each 08/23/18 15:[address] 10,500 Unit FEEDTUBE PRN PRN For Clogged Feeding Tube Aspirin 81 mg 08/24/18 10:00 Baby Aspirin PO DAILY [facility] Carvedilol 25 mg 08/24/18 10:00 Coreg PO BID [facility] Clonidine HCl 0.1 mg 08/23/18 14:00 08/24/18 05:56 Catapres PO 0.1 mg Q8HR [facility] Administration Dextrose 50 ml 08/22/18 23:50 D50w (25gm) Syringe IV PRN PRN Hypoglycemia Fluoxetine HCl 40 mg 08/24/18 10:00 Prozac PO QDAY [facility] Heparin Sodium (Porcine) 5,000 unit 08/23/18 10:00 08/23/18 22:48 Heparin SUB-Q 5,000 unit Q12HR [facility] Administration Hydralazine HCl 25 mg 08/24/18 14:00 Apresoline PO Q8HR [facility] Hydralazine HCl 10 mg 08/24/18 07:32 Apresoline IV Q4HR PRN Hypertension Nicardipine HCl 50 mg/ Sodium 250 mls @ 25 mls/hr 08/22/18 23:00 08/24/18 05:56 Chloride IV 15 mg/hr TITR [facility] 75 mls/hr Administration Protocol 5 MG/HR Ceftriaxone Sodium 1 gm in 50 mls @ 100 mls/hr 08/23/18 10:00 08/23/18 10:48 Rocephin/Ns 1 Gm/50 Ml IV 100 mls/hr Q24HR [facility] Administration Protocol Sodium Chloride 1,000 mls @ 75 mls/hr 08/23/18 03:00 08/23/18 18:53 Nacl 0.45% 1000 Ml IV 75 mls/hr DIRECT [facility] Administration Levetiracetam 1,000 mg/ 110 mls @ 400 mls/hr 08/23/18 10:00 08/23/18 22:47 Dextrose IV 400 mls/hr Q12HR [facility] Administration Insulin Human Regular 0 units 08/23/18 06:00 08/24/18 05:53 Humulin R SUB-Q Not Given Q6HR [facility] Protocol Lorazepam 1 mg 08/23/18 01:58 Ativan IV Q4H PRN Seizures Olanzapine 2.5 mg 08/24/18 10:00 Zyprexa PO DAILY [facility] Ondansetron HCl 4 mg 08/22/18 23:50 Zofran IV Q8H PRN Nausea And Vomiting Simple Syrup 15 ml 08/23/18 15:27 Simple Syrup FEEDTUBE PRN PRN Hypoglycemia Simple Syrup 30 ml 08/23/18 15:27 Simple Syrup FEEDTUBE PRN PRN Hypoglycemia Sodium Bicarbonate 325 mg 08/23/18 15:27 Sodium Bicarbonate FEEDTUBE PRN PRN For Clogged Feeding Tube Sodium Chloride 10 ml 08/22/18 23:50 08/23/18 22:49 Sodium Chloride Flush Syringe 10 Ml IV 10 ml BID [facility] Administration Sodium Chloride 10 ml 08/23/18 00:12 Sodium Chloride Flush Syringe 10 Ml IV PRN PRN LINE FLUSH Nutrition/Malnutrition Assess - Dietary Evaluation Nutrition/Malnutrition Findings: Nutrition Notes Start: 08/23/18 15:56 Freq: Status: Active Protocol: Document 08/23/18 15:56 RM (Rec: 08/23/18 16:20 RM [id number]) Nutrition Notes Need for Assessment generated from: MD Order Initial or Follow up Assessment Current Diagnosis Acute Kidney Injury,CKD(stage I-IV),Coronary Artery Disease, Diabetes,Hypertension, Hyperlipidemia Other Pertinent Diagnosis PVD, Hx endometrial CA, Seizures, AKA Current Diet TF (blank) Labs/Tests K 4 A1c 8.3 Pertinent Medications Reviewed Height 5 ft Weight 89.3 kg [place] Body Weight (kg) 45.45 BMI 38.4 Subjective/Other Information Consulted for malnutrition and TF recommendation. Pt from [facility]. [facility] ordered to be placed today. Burn Absent Trauma Absent #1 Nutrition Diagnosis Inadequate oral intake Etiology seizures As Evidenced by Signs and Symptoms TF consult Is patient on ventilator? No Is Patient Ambulatory and/or Out of Bed No REE-([facility]-confined to bed) 1642.476 Kcal/Kg value to use for calculation 15 Approximate Energy Requirements Using 1340 kcal/Kg Calculation Used for Recommendations Kcal/kg Additional Notes Protein Needs: 91g (2g/kg IBW) Fluid Needs: 1 ml/kcal Nutrition Intervention Nutrition Support: Osmolite 1.5 at 45 ml/hr. Water flush of 150 mls q 4 hrs . Kcal 1,620 Protein (gm) 68 Fluid (mL) 823 Fiber (gm) 0 Goal #1 TF tolerance Goal #2 Meet at least 80% of calorie and protein needs via TF Anticipated Discharge Needs: Unable to determine at this time Follow-Up By: 08/25/18 Additional Comments Follow for new TF
[2018-08-24] MEDS: NACL 0.45% 1000 ML 1,000 ML IV SCH (08:15)
--- NOTE | 2018-08-24 08:38 | Progress Note ---
Subjective Interval history: Patient was seen today for follow-up, regarding multiple renal related issues Events of 24 hours were noted, status post neurology evaluation Pending basic metabolic profile today Continues to have a feeding tube Interdisciplinary Notes were also reviewed from past 24 hours Vitals labs intake output medications: Reviewed Past medical history: Reviewed Allergies: Reviewed Social history: Reviewed Family history: Reviewed Physical examination Gen.: No acute distress HEENT: Mild pallor nor icterus no uremic order Neck: Supple without any mass or JVD Chest: Clear to auscultation anteriorly Heart: Regular rate and rhythm S1 and S2 heard Abdomen: Soft nontender no suprapubic fullness no masses no renal bruit Extremity: Edema , no peripheral cyanosis Skin: No petechial rashes dry skin Assessment and plan Chronic kidney disease likely colon progression over time, has history of uncontrolled hypertension consider adding spironolactone for now and follow Renal failure in a patient who is 62-year-old and has multiple risk factors for underlying chronic kidney disease, as of yesterday creatinine has been stable patient is nonoliguric patient needs follow-up labs, lactic acid level is normal,Patient does have chronic kidney disease creatinine was 1.4 in May 2017 with echogenic kidneys noted on ultrasonogram Accelerated hypertension: High suspicion for secondary hypertension: To monitor and follow, will place her on clonidine patch 0.3 for now and follow Will give her bicarbonate for metabolic acidosis: No evidence of any lactic acidosis at this time Leukocytosis could be reactive response needs follow-up on this rule out infection rule out sepsis/ she has been noted to have urinary tract infection currently on Rocephin Diabetes mellitus type 2 uncontrolled hemoglobin A1c was 8.3 From renal standpoint her uric acid is 9.7 phosphorus 3.7 albumin 3.1 I edema malnutrition present on admission Urine Culture shows evidence of gram-negative yamil/ rule out urinary sepsis Patient needs empiric antibiotic and follow-up on the urine culture We'll continue to follow and make recommendation from renal standpoint Objective - Vital Signs Vital signs: Vital Signs - 12hr 08/23/18 08/23/18 08/23/18 21:00 21:30 22:00 Temperature Pulse Rate 83 83 83 Respiratory 21 21 20 Rate Blood Pressure 165/56 167/59 170/54 O2 Sat by Pulse 100 100 100 Oximetry 08/23/18 08/23/18 08/23/18 22:30 22:48 23:00 Temperature Pulse Rate 87 83 84 Respiratory 24 20 Rate Blood Pressure 165/51 165/51 165/58 O2 Sat by Pulse 100 99 Oximetry 08/23/18 08/24/18 08/24/18 23:30 00:00 00:30 Temperature 99.9 F H Pulse Rate 76 74 77 Respiratory 19 19 20 Rate Blood Pressure 160/50 163/53 165/52 O2 Sat by Pulse 100 100 100 Oximetry 08/24/18 08/24/18 08/24/18 01:00 01:30 02:00 Temperature Pulse Rate 73 75 86 Respiratory 18 14 20 Rate Blood Pressure 156/50 142/48 156/51 O2 Sat by Pulse 100 100 100 Oximetry 08/24/18 08/24/18 08/24/18 02:30 03:00 03:30 Temperature Pulse Rate 73 76 73 Respiratory 17 20 14 Rate Blood Pressure 162/61 158/54 150/57 O2 Sat by Pulse 100 100 100 Oximetry 08/24/18 08/24/18 08/24/18 04:00 04:30 05:00 Temperature 99.5 F Pulse Rate 75 78 80 Respiratory 14 21 24 Rate Blood Pressure 162/66 170/53 163/55 O2 Sat by Pulse 100 100 100 Oximetry 08/24/18 08/24/18 08/24/18 05:30 05:56 06:00 Temperature Pulse Rate 77 76 78 Respiratory 23 18 Rate Blood Pressure 161/56 161/56 167/47 O2 Sat by Pulse 100 99 Oximetry 08/24/18 08/24/18 08/24/18 06:31 07:59 08:00 Temperature 99.3 F Pulse Rate 74 Respiratory 21 Rate Blood Pressure 167/47 O2 Sat by Pulse 99 99 Oximetry - Lab 08/24/18 04:37 08/26/18 06:58 Most recent lab results Calcium 9.2 mg/dL (8.4-10.2) 08/23/18 09:05 Phosphorus 3.70 mg/dL (2.5-4.5) 08/23/18 09:05 Magnesium 1.70 mg/dL (1.7-2.3) 08/23/18 09:05 Medications & Allergies - Medications Allergies/Adverse Reactions: Allergies No Known Allergies Allergy (Unverified 06/05/17 13:30) Home Medications: Home Medications Medication Instructions Recorded Confirmed Last Taken Type Aspirin 81 mg PO DAILY 11/14/17 08/22/18 Unknown History Megestrol Acetate 800 mg PO DAILY 11/14/17 08/22/18 Unknown History OLANZapine [Zyprexa] 2.5 mg PO DAILY 11/14/17 08/22/18 Unknown History FLUoxetine [PROzac] 40 mg PO QDAY #30 capsule 11/26/17 08/22/18 Unknown Rx Ferrous Sulfate [Ferrous Sulfate 300 mg PO QDAY #30 oral.liqd 11/26/17 08/22/18 Unknown Rx Oral Liq 300 Mg/5 Ml] Pantoprazole [Protonix TAB] 40 mg PO QDAY #30 tablet 11/26/17 08/22/18 Unknown Rx amLODIPine [Norvasc] 10 mg PO DAILY #30 tablet 11/26/17 08/22/18 Unknown Rx Carvedilol [Coreg] 25 mg PO BID tablet 12/06/17 08/22/18 Unknown Rx cloNIDine [Catapres] 0.1 mg PO Q8H tablet 12/06/17 08/22/18 Unknown Rx traMADol [Ultram 50 MG tab] 50 mg PO Q12HR PRN #20 tablet 12/06/17 08/22/18 Unknown Rx Acetaminophen 325 mg PO Q6H PRN 12/22/17 08/22/18 Unknown History Glucagon HCl 1 mg IM ONCE PRN 12/22/17 08/22/18 Unknown History Klor-Con 10 10 meq PO DAILY 12/22/17 08/22/18 Unknown History Lispro Insulin [HumaLOG] See Protocol SC ACHS 12/22/17 08/22/18 Unknown History Simethicone 80 mg PO Q8H PRN 12/22/17 08/22/18 Unknown History levETIRAcetam [Keppra ORAL LIQ] 750 mg PO BID 30 Days bottle 01/04/18 08/22/18 Unknown Rx Active Medications: Generic Name Dose Route Start Last Admin Trade Name Freq PRN Reason Stop Dose Admin Acetaminophen 650 mg 08/22/18 23:50 Tylenol PO Q4H PRN Pain MILD(1-3)/Fever >100.5/CARTER Amlodipine Besylate 10 mg 08/24/18 10:00 Norvasc PO DAILY [facility] Lipase/Protease/Amylase 1 each 08/23/18 15:27 Pancreaze 10,500 Unit FEEDTUBE PRN PRN For Clogged Feeding Tube Aspirin 81 mg 08/24/18 10:00 Baby Aspirin PO DAILY [facility] Carvedilol 25 mg 08/24/18 10:00 Coreg PO BID [facility] Clonidine HCl 0.1 mg 08/23/18 14:00 08/24/18 05:56 Catapres PO 0.1 mg Q8HR [facility] Administration Dextrose 50 ml 08/22/18 23:50 D50w (25gm) Syringe IV PRN PRN Hypoglycemia Fluoxetine HCl 40 mg 08/24/18 10:00 Prozac PO QDAY [facility] Heparin Sodium (Porcine) 5,000 unit 08/23/18 10:00 08/23/18 22:48 Heparin SUB-Q 5,000 unit Q12HR [facility] Administration Hydralazine HCl 25 mg 08/24/18 14:00 Apresoline PO Q8HR [facility] Hydralazine HCl 10 mg 08/24/18 07:32 Apresoline IV Q4HR PRN Hypertension Nicardipine HCl 50 mg/ Sodium 250 mls @ 25 mls/hr 08/22/18 23:00 08/24/18 05:56 Chloride IV 15 mg/hr TITR [facility] 75 mls/hr Administration Protocol 5 MG/HR Ceftriaxone Sodium 1 gm in 50 mls @ 100 mls/hr 08/23/18 10:00 08/23/18 10:48 Rocephin/Ns 1 Gm/50 Ml IV 100 mls/hr Q24HR [facility] Administration Protocol Sodium Chloride 1,000 mls @ 75 mls/hr 08/23/18 03:00 08/23/18 18:53 Nacl 0.45% 1000 Ml IV 75 mls/hr DIRECT [facility] Administration Levetiracetam 1,000 mg/ 110 mls @ 400 mls/hr 08/23/18 10:00 08/23/18 22:47 Dextrose IV 400 mls/hr Q12HR [facility] Administration Insulin Human Regular 0 units 08/23/18 06:00 08/24/18 05:53 Humulin R SUB-Q Not Given Q6HR [facility] Protocol Lorazepam 1 mg 08/23/18 01:58 Ativan IV Q4H PRN Seizures Olanzapine 2.5 mg 08/24/18 10:00 Zyprexa PO DAILY [facility] OF [facility] Ondansetron HCl 4 mg 08/22/18 23:50 Zofran IV Q8H PRN Nausea And Vomiting Simple Syrup 15 ml 08/23/18 15:27 Simple Syrup FEEDTUBE PRN PRN Hypoglycemia Simple Syrup 30 ml 08/23/18 15:27 Simple Syrup FEEDTUBE PRN PRN Hypoglycemia Sodium Bicarbonate 325 mg 08/23/18 15:27 Sodium Bicarbonate FEEDTUBE PRN PRN For Clogged Feeding Tube Sodium Chloride 10 ml 08/22/18 23:50 08/23/18 22:49 Sodium Chloride Flush Syringe 10 Ml IV 10 ml BID [facility] Administration Sodium Chloride 10 ml 08/23/18 00:12 Sodium Chloride Flush Syringe 10 Ml IV PRN PRN LINE FLUSH
[2018-08-24 09:26] LABS: Calcium 8.5 mg/dL (8.4-10.2)
[2018-08-24] MEDS ORDERED: COREG PO SCH (10:00)
[2018-08-24] MEDS: KEPPRA 1,000 MG in D5W 100 ML IV SCH ×2 (10:12→23:57)
[2018-08-24] MEDS: ROCEPHIN/NS 1 GM/50 ML 1 GM/50 ML BAG IV SCH (10:13)
[2018-08-24] MEDS: NORVASC PO SCH (10:19)
[2018-08-24] MEDS: PROzac PO SCH (10:20)
[2018-08-24] MEDS: SODIUM CHLORIDE FLUSH SYRINGE 10 ML IV SCH ×2 (10:21→22:56)
[2018-08-24] MEDS: HEPARIN SUB-Q SCH ×2 (10:21→22:55)
[2018-08-24] MEDS: BABY ASPIRIN PO SCH (10:25)
[2018-08-24] MEDS: SODIUM BICARBONATE 100 MEQ in STERILE WATER 1,000 ML IV SCH (10:40)
[2018-08-24] MEDS: CATAPRES-TTS PATCH TD SCH (10:46)
--- NOTE | 2018-08-24 11:15 | Progress Note ---
Assessment and Plan 62 y/o female with seizures, likely secondary to hypertensive Emergency and acute on chronic renal failure. 1. Follow up EEG results. 2. Restarted on home BP meds, orally via DH. 3. Seizures have been aborted. Keppra increased to 1gram BID, Neurology following. 4. Per daughter, patient takes a long time before she is back to her baseline of being able to swallow appropriately. her last hospital admission she had a feeding tube only via the nose for an extended period of time. Continue NPO status but need to assess swallowing daily based on mental state 5. Stable for transfer to floor. Spoke with primary physician. Subjective Date of service: 08/24/18 Interval history: No acute events. More awake. Off cardene now. Currently getting EEG now. No family present. Objective - Constitutional Vitals: Vital Signs - 12hr 08/23/18 08/24/18 08/24/18 23:30 00:00 00:30 Temperature 99.9 F H Pulse Rate 76 74 77 Respiratory 19 19 20 Rate Blood Pressure 160/50 163/53 165/52 O2 Sat by Pulse 100 100 100 Oximetry 08/24/18 08/24/18 08/24/18 01:00 01:30 02:00 Temperature Pulse Rate 73 75 86 Respiratory 18 14 20 Rate Blood Pressure 156/50 142/48 156/51 O2 Sat by Pulse 100 100 100 Oximetry 08/24/18 08/24/18 08/24/18 02:30 03:00 03:30 Temperature Pulse Rate 73 76 73 Respiratory 17 20 14 Rate Blood Pressure 162/61 158/54 150/57 O2 Sat by Pulse 100 100 100 Oximetry 08/24/18 08/24/18 08/24/18 04:00 04:30 05:00 Temperature 99.5 F Pulse Rate 75 78 80 Respiratory 14 21 24 Rate Blood Pressure 162/66 170/53 163/55 O2 Sat by Pulse 100 100 100 Oximetry 08/24/18 08/24/18 08/24/18 05:30 05:56 06:00 Temperature Pulse Rate 77 76 78 Respiratory 23 18 Rate Blood Pressure 161/56 161/56 167/47 O2 Sat by Pulse 100 99 Oximetry 08/24/18 08/24/18 08/24/18 06:31 07:01 07:31 Temperature Pulse Rate 74 78 78 Respiratory 21 21 25 H Rate Blood Pressure 167/47 153/54 155/48 O2 Sat by Pulse 99 100 99 Oximetry 08/24/18 08/24/18 08/24/18 07:59 08:00 08:01 Temperature 99.3 F Pulse Rate 81 Respiratory 21 Rate Blood Pressure 155/50 O2 Sat by Pulse 99 97 99 Oximetry 08/24/18 08/24/18 08/24/18 08:31 09:01 09:31 Temperature Pulse Rate 75 79 84 Respiratory 18 20 20 Rate Blood Pressure 155/48 157/47 142/49 O2 Sat by Pulse 100 99 99 Oximetry 08/24/18 08/24/18 08/24/18 10:00 10:01 10:19 Temperature Pulse Rate 84 79 82 Respiratory 21 Rate Blood Pressure 162/54 162/54 O2 Sat by Pulse 100 Oximetry 08/24/18 08/24/18 10:31 10:46 Temperature Pulse Rate 82 82 Respiratory 14 Rate Blood Pressure 163/57 163/57 O2 Sat by Pulse 99 Oximetry General appearance: Present: no acute distress, other (asleep) - EENT ENT: hearing intact - Neck Neck: supple, normal ROM - Respiratory Respiratory effort: normal Respiratory: bilateral: diminished - Cardiovascular Rhythm: regular Heart Sounds: Present: S1 & S2 Extremities: abnormal (left AKA) - Gastrointestinal General gastrointestinal: Present: soft, non-tender Rectal Exam: deferred - Genitourinary Female genitourinary: deferred - Integumentary Integumentary: clear, warm, dry - Labs CBC & Chem 7: 08/24/18 04:37 08/24/18 08:05 Labs: Abnormal lab results 08/23/18 08/23/18 08/23/18 Range/Units 13:15 18:41 23:21 Carbon Dioxide (22-30) mmol/L BUN (7-17) mg/dL Creatinine (0.7-1.2) mg/dL Glucose (65-100) mg/dL POC Glucose 303 H 292 H 243 H (70-105) 08/24/18 08/24/18 Range/Units 05:43 08:05 Carbon Dioxide 18 L (22-30) mmol/L BUN 41 H (7-17) mg/dL Creatinine 2.6 H (0.7-1.2) mg/dL Glucose 198 H (65-100) mg/dL POC Glucose 139 H (70-105) Medications & Allergies - Medications Allergies/Adverse Reactions: Allergies No Known Allergies Allergy (Unverified 06/05/17 13:30) Home Medications: Home Medications Medication Instructions Recorded Confirmed Last Taken Type Aspirin 81 mg PO DAILY 11/14/17 08/22/18 Unknown History Megestrol Acetate 800 mg PO DAILY 11/14/17 08/22/18 Unknown History OLANZapine [Zyprexa] 2.5 mg PO DAILY 11/14/17 08/22/18 Unknown History FLUoxetine [PROzac] 40 mg PO QDAY #30 capsule 11/26/17 08/22/18 Unknown Rx Ferrous Sulfate [Ferrous Sulfate 300 mg PO QDAY #30 oral.liqd 11/26/17 08/22/18 Unknown Rx Oral Liq 300 Mg/5 Ml] Pantoprazole [Protonix TAB] 40 mg PO QDAY #30 tablet 11/26/17 08/22/18 Unknown Rx amLODIPine [Norvasc] 10 mg PO DAILY #30 tablet 11/26/17 08/22/18 Unknown Rx Carvedilol [Coreg] 25 mg PO BID tablet 12/06/17 08/22/18 Unknown Rx cloNIDine [Catapres] 0.1 mg PO Q8H tablet 12/06/17 08/22/18 Unknown Rx traMADol [Ultram 50 MG tab] 50 mg PO Q12HR PRN #20 tablet 12/06/17 08/22/18 Unknown Rx Acetaminophen 325 mg PO Q6H PRN 12/22/17 08/22/18 Unknown History Glucagon HCl 1 mg IM ONCE PRN 12/22/17 08/22/18 Unknown History Klor-Con 10 10 meq PO DAILY 12/22/17 08/22/18 Unknown History Lispro Insulin [HumaLOG] See Protocol NC ACHS 12/22/17 08/22/18 Unknown History Simethicone 80 mg PO Q8H PRN 12/22/17 08/22/18 Unknown History levETIRAcetam [Keppra ORAL LIQ] 750 mg PO BID 30 Days bottle 01/04/18 08/22/18 Unknown Rx Active Medications: Generic Name Dose Route Start Last Admin Trade Name Freq PRN Reason Stop Dose Admin Acetaminophen 650 mg 08/22/18 23:50 Tylenol PO Q4H PRN Pain MILD(1-3)/Fever >100.5/CARTER Amlodipine Besylate 10 mg 08/24/18 10:00 08/24/18 10:19 Norvasc PO 10 mg DAILY [facility] Administration Lipase/Protease/Amylase 1 each 08/23/18 15:27 Pancrerosa Billingsley 10,500 Unit FEEDTUBE PRN PRN For Clogged Feeding Tube Aspirin 81 mg 08/24/18 10:00 08/24/18 10:25 Baby Aspirin PO 81 mg DAILY [facility] Administration Clonidine HCl 0.3 mg 08/24/18 10:00 08/24/18 10:46 Catapres-Tts Patch TD 0.3 mg QWEEK [facility] Administration Dextrose 50 ml 08/22/18 23:50 D50w (25gm) Syringe IV PRN PRN Hypoglycemia Fluoxetine HCl 40 mg 08/24/18 10:00 08/24/18 10:20 Prozac PO 40 mg QDAY [facility] Administration Heparin Sodium (Porcine) 5,000 unit 08/23/18 10:00 08/24/18 10:21 Heparin SUB-Q 5,000 unit Q12HR [facility] Administration Hydralazine HCl 25 mg 08/24/18 14:00 Apresoline PO Q8HR [facility] Hydralazine HCl 10 mg 08/24/18 07:32 Apresoline IV Q4HR PRN HTN >155/90 Nicardipine HCl 50 mg/ Sodium 250 mls @ 25 mls/hr 08/22/18 23:00 08/24/18 10:40 Chloride IV Infused TITR [facility] Titration Protocol 5 MG/HR Ceftriaxone Sodium 1 gm in 50 mls @ 100 mls/hr 08/23/18 10:00 08/24/18 10:13 Rocephin/Ns 1 Gm/50 Ml IV 100 mls/hr Q24HR [facility] Administration Protocol Levetiracetam 1,000 mg/ 110 mls @ 400 mls/hr 08/23/18 10:00 08/24/18 10:12 Dextrose IV 400 mls/hr Q12HR [facility] Administration Sodium Bicarbonate 100 meq/ 1,100 mls @ 100 mls/hr 08/24/18 10:30 08/24/18 10:40 Sterile Water IV 100 mls/hr DIRECT [facility] Administration Insulin Human Regular 0 units 08/23/18 06:00 08/24/18 05:53 Humulin R SUB-Q Not Given Q6HR [facility] Protocol Lorazepam 1 mg 08/23/18 01:58 Ativan IV Q4H PRN Seizures Olanzapine 2.5 mg 08/24/18 10:00 08/24/18 10:46 Zyprexa PO 2.5 mg DAILY [facility] Administration Ondansetron HCl 4 mg 08/22/18 23:50 Zofran IV Q8H PRN Nausea And Vomiting Simple Syrup 15 ml 08/23/18 15:27 Simple Syrup FEEDTUBE PRN PRN Hypoglycemia Simple Syrup 30 ml 08/23/18 15:27 Simple Syrup FEEDTUBE PRN PRN Hypoglycemia Sodium Bicarbonate 325 mg 08/23/18 15:27 Sodium Bicarbonate FEEDTUBE PRN PRN For Clogged Feeding Tube Sodium Chloride 10 ml 08/22/18 23:50 08/24/18 10:21 Sodium Chloride Flush Syringe 10 Ml IV 10 ml BID [facility] Administration Sodium Chloride 10 ml 08/23/18 00:12 Sodium Chloride Flush Syringe 10 Ml IV PRN PRN LINE FLUSH
[2018-08-24] MEDS: APRESOLINE PO SCH ×2 (13:24→22:55)
[2018-08-24] MEDS: TYLENOL PO PRN (22:55)
--- NOTE | 2018-08-25 04:58 | Ultrasound Report ---
ULTRASOUND RENAL INDICATION: acute renal failure. COMPARISON: No relevant prior imaging study available. FINDINGS: RIGHT KIDNEY: Size: 9.7 cm. Echogenicity: Increased. Cortical thickness: Normal. Stones: None. Hydronephrosis: None. Cyst or mass: None. LEFT KIDNEY: Size: 10.6 cm. Echogenicity: Increased. Cortical thickness: Normal. Stones: None. Hydronephrosis: None. Cyst or mass: None. Urinary Bladder: No significant abnormality. Free Fluid: None. Additional Findings: None. IMPRESSION 1. No acute sonographic abnormality of the kidneys. Signer Name: Solomon Kelly MD Signed: 08/25/2018 4:54 AM Workstation Name: [id number]
[2018-08-25 05:18] LABS: Calcium 8.4 mg/dL (8.4-10.2)
[2018-08-25] MEDS: APRESOLINE PO SCH ×3 (06:49→21:26)
[2018-08-25] MEDS: HumuLIN R SUB-Q SCH ×3 (06:51→17:48)
[2018-08-25] MEDS: KEPPRA 1,000 MG in D5W 100 ML IV SCH ×2 (10:00→21:26)
[2018-08-25] MEDS: ROCEPHIN/NS 1 GM/50 ML 1 GM/50 ML BAG IV SCH (11:13)
[2018-08-25] MEDS: HEPARIN SUB-Q SCH ×2 (11:14→21:27)
[2018-08-25] MEDS: ALDACTONE PO SCH (11:14)
[2018-08-25] MEDS: BABY ASPIRIN PO SCH (11:15)
[2018-08-25] MEDS: NORVASC PO SCH (11:15)
[2018-08-25] MEDS: SODIUM CHLORIDE FLUSH SYRINGE 10 ML IV SCH ×2 (11:16→21:27)
[2018-08-25] MEDS: PROzac PO SCH (11:16)
[2018-08-25] MEDS: APRESOLINE IV PRN ×2 (11:56→17:50)
--- NOTE | 2018-08-25 13:27 | Progress Note ---
Assessment and Plan 62 y/o female with seizures, likely secondary to hypertensive Emergency and acute on chronic renal failure. 1. Follow up EEG results. Done but no interpretation in chart 2. Restarted on home BP meds, orally via DH. COntinue this and follow up with speech 3. Seizures have been aborted. Keppra increased to 1gram BID, Neurology pino pabon. 4. Per daughter, patient takes a long time before she is back to her baseline of being able to swallow appropriately. her last hospital admission she had a feeding tube only via the nose for an extended period of time. Continue NPO status but need to assess swallowing daily based on mental state 5. Will see PRN. Wean FiO2 as tolerated for sats >88% Subjective Date of service: 08/25/18 Interval history: no acute events. STable transfer out of unit. BS mildly elevated. Objective - Constitutional Vitals: Vital Signs - 12hr 08/25/18 08/25/18 08/25/18 03:40 06:07 11:14 Temperature 99.7 F H 98.6 F Pulse Rate 87 Respiratory 24 Rate Blood Pressure 185/55 188/55 O2 Sat by Pulse 99 Oximetry 08/25/18 11:56 Temperature Pulse Rate Respiratory Rate Blood Pressure 194/56 O2 Sat by Pulse Oximetry General appearance: Present: no acute distress, other (still nonverbal) - EENT Eyes: PERRL ENT: hearing intact - Neck Neck: supple, normal ROM - Respiratory Respiratory effort: normal Respiratory: bilateral: CTA - Breasts Breasts: deferred - Cardiovascular Rhythm: regular Heart Sounds: Present: S1 & S2 - Gastrointestinal Rectal Exam: deferred - Genitourinary Female genitourinary: deferred - Labs CBC & Chem 7: 08/24/18 04:37 08/25/18 04:30 Labs: Abnormal lab results 08/24/18 08/25/18 08/25/18 Range/Units 23:44 04:30 06:10 Carbon Dioxide 18 L (22-30) mmol/L BUN 39 H (7-17) mg/dL Creatinine 2.4 H (0.7-1.2) mg/dL Glucose 343 H (65-100) mg/dL POC Glucose 421 H 358 H (70-105) 08/25/18 Range/Units 11:51 Carbon Dioxide (22-30) mmol/L BUN (7-17) mg/dL Creatinine (0.7-1.2) mg/dL Glucose (65-100) mg/dL POC Glucose 406 H (70-105) Medications & Allergies - Medications Allergies/Adverse Reactions: Allergies No Known Allergies Allergy (Unverified 06/05/17 13:30) Home Medications: Home Medications Medication Instructions Recorded Confirmed Last Taken Type Aspirin 81 mg PO DAILY 11/14/17 08/22/18 Unknown History Megestrol Acetate 800 mg PO DAILY 11/14/17 08/22/18 Unknown History OLANZapine [Zyprexa] 2.5 mg PO DAILY 11/14/17 08/22/18 Unknown History FLUoxetine [PROzac] 40 mg PO QDAY #30 capsule 11/26/17 08/22/18 Unknown Rx Ferrous Sulfate [Ferrous Sulfate 300 mg PO QDAY #30 oral.liqd 11/26/17 08/22/18 Unknown Rx Oral Liq 300 Mg/5 Ml] Pantoprazole [Protonix TAB] 40 mg PO QDAY #30 tablet 11/26/17 08/22/18 Unknown Rx amLODIPine [Norvasc] 10 mg PO DAILY #30 tablet 11/26/17 08/22/18 Unknown Rx Carvedilol [Coreg] 25 mg PO BID tablet 12/06/17 08/22/18 Unknown Rx cloNIDine [Catapres] 0.1 mg PO Q8H tablet 12/06/17 08/22/18 Unknown Rx traMADol [Ultram 50 MG tab] 50 mg PO Q12HR PRN #20 tablet 12/06/17 08/22/18 Unknown Rx Acetaminophen 325 mg PO Q6H PRN 12/22/17 08/22/18 Unknown History Glucagon HCl 1 mg IM ONCE PRN 12/22/17 08/22/18 Unknown History Klor-Con 10 10 meq PO DAILY 12/22/17 08/22/18 Unknown History Lispro Insulin [HumaLOG] See Protocol SC ACHS 12/22/17 08/22/18 Unknown History Simethicone 80 mg PO Q8H PRN 12/22/17 08/22/18 Unknown History levETIRAcetam [Keppra ORAL LIQ] 750 mg PO BID 30 Days bottle 01/04/18 08/22/18 Unknown Rx Active Medications: Generic Name Dose Route Start Last Admin Trade Name Freq PRN Reason Stop Dose Admin Acetaminophen 650 mg 08/22/18 23:50 08/24/18 22:55 Tylenol PO 650 mg Q4H PRN Administration Pain MILD(1-3)/Fever >100.5/CARTER Amlodipine Besylate 10 mg 08/24/18 10:00 08/25/18 11:15 Norvasc PO 10 mg DAILY [facility] Administration Lipase/Protease/Amylase 1 each 08/23/18 15:27 Pancreaze 10,500 Unit FEEDTUBE PRN PRN For Clogged Feeding Tube Aspirin 81 mg 08/24/18 10:00 08/25/18 11:15 Baby Aspirin PO 81 mg DAILY [facility] Administration Clonidine HCl 0.3 mg 08/24/18 10:00 08/24/18 10:46 Catapres-Tts Patch TD 0.3 mg QWEEK [facility] Administration Dextrose 50 ml 08/22/18 23:50 D50w (25gm) Syringe IV PRN PRN Hypoglycemia Fluoxetine HCl 40 mg 08/24/18 10:00 08/25/18 11:16 Prozac PO 40 mg QDAY [facility] Administration Heparin Sodium (Porcine) 5,000 unit 08/23/18 10:00 08/25/18 11:14 Heparin SUB-Q 5,000 unit Q12HR [facility] Administration Hydralazine HCl 25 mg 08/24/18 14:00 08/25/18 06:49 Apresoline PO 25 mg Q8HR [facility] Administration Hydralazine HCl 10 mg 08/24/18 07:32 08/25/18 11:56 Apresoline IV 10 mg Q4HR PRN Administration HTN >155/90 Levetiracetam 1,000 mg/ 110 mls @ 400 mls/hr 08/23/18 10:00 08/25/18 10:00 Dextrose IV 400 mls/hr Q12HR [facility] Administration Sodium Bicarbonate 100 meq/ 1,100 mls @ 100 mls/hr 08/24/18 10:30 08/24/18 10:40 Sterile Water IV 100 mls/hr DIRECT [facility] Administration Meropenem 500 mg in 50 mls @ 50 mls/hr 08/25/18 18:00 Merrem/Ns 500 Mg/50 Ml IV Q6HR [facility] Insulin Human Isoph/Insulin Regular 15 unit 08/25/18 12:00 Humulin 70/30 SUB-Q BIDDIAB [facility] Insulin Human Isoph/Insulin Regular 15 unit 08/25/18 13:16 Humulin 70/30 SUB-Q 08/25/18 13:17 ONCE ONE Insulin Human Regular 0 units 08/23/18 06:00 08/25/18 12:01 Humulin R SUB-Q 8 units Q6HR [facility] Administration Protocol Lorazepam 1 mg 08/23/18 01:58 Ativan IV Q4H PRN Seizures Olanzapine 2.5 mg 08/24/18 10:00 08/25/18 11:15 Zyprexa PO 2.5 mg DAILY [facility] Administration Ondansetron HCl 4 mg 08/22/18 23:50 Zofran IV Q8H PRN Nausea And Vomiting Simple Syrup 15 ml 08/23/18 15:27 Simple Syrup FEEDTUBE PRN PRN Hypoglycemia Simple Syrup 30 ml 08/23/18 15:27 Simple Syrup FEEDTUBE PRN PRN Hypoglycemia Sodium Bicarbonate 325 mg 08/23/18 15:27 Sodium Bicarbonate FEEDTUBE PRN PRN For Clogged Feeding Tube Sodium Chloride 10 ml 08/22/18 23:50 08/25/18 11:16 Sodium Chloride Flush Syringe 10 Ml IV 10 ml BID [facility] Administration Sodium Chloride 10 ml 08/23/18 00:12 Sodium Chloride Flush Syringe 10 Ml IV PRN PRN LINE FLUSH Spironolactone 50 mg 08/25/18 10:00 08/25/18 11:14 Aldactone PO 50 mg QDAY [facility] Administration
--- NOTE | 2018-08-25 13:56 | Consultation ---
History of Present Illness - Reason for Consult Consult date: 08/25/18 UTI/ESBL Requesting physician: ROSALVA YO - History of Present Illness 62 y/o female with history of diabetes, hypertension, seizure, CAD, PVD s/p AKA, endometrial cancer s/p hysterectomy, malnutrition admitted on 08/25/2018 due to prolonged seizures. According to EMS patient experienced prolonged uncontrolled seizure; followed by a second seizure lasting greater than 10 minutes while in route to our facility. Upon arrival to our facility patient was noted to be actively seizing. An IO was placed and she was given IV Ativan. Patient found with hypertency emergency and status epilecticus. In the ED, temp 99.1-100.5, HR 71, R26, BP154/95. WBC 10.3-19. Hg 13. Plat 391. Creat 2.3. UA with 42 wbc, trace LE. Urine culture 08/22/2018 ESBL E coli. Review of Systems: unable to obtain- non verbal Past History Past Medical History: acute PR, anemia, CAD, cancer (endometrial cancer), diabetes (1), hypertension, hyperlipidemia, PVD, seizures, other (severe debility, malnutrition,, major depressive disorder, chronic pain, dementia and prior CVA) Past Surgical History: hysterectomy Social history: other (resident of [facility]) Family history: no significant family history Medications and Allergies Allergies Allergy/AdvReac Type Severity Reaction Status Date / Time No Known Allergies Allergy Unverified 06/05/17 13:30 Home Medications Medication Instructions Recorded Confirmed Last Taken Type Aspirin 81 mg PO DAILY 11/14/17 08/22/18 Unknown History Megestrol Acetate 800 mg PO DAILY 11/14/17 08/22/18 Unknown History OLANZapine [Zyprexa] 2.5 mg PO DAILY 11/14/17 08/22/18 Unknown History FLUoxetine [PROzac] 40 mg PO QDAY #30 capsule 11/26/17 08/22/18 Unknown Rx Ferrous Sulfate [Ferrous Sulfate 300 mg PO QDAY #30 oral.liqd 11/26/17 08/22/18 Unknown Rx Oral Liq 300 Mg/5 Ml] Pantoprazole [Protonix TAB] 40 mg PO QDAY #30 tablet 11/26/17 08/22/18 Unknown Rx amLODIPine [Norvasc] 10 mg PO DAILY #30 tablet 11/26/17 08/22/18 Unknown Rx Carvedilol [Coreg] 25 mg PO BID tablet 12/06/17 08/22/18 Unknown Rx cloNIDine [Catapres] 0.1 mg PO Q8H tablet 12/06/17 08/22/18 Unknown Rx traMADol [Ultram 50 MG tab] 50 mg PO Q12HR PRN #20 tablet 12/06/17 08/22/18 Unknown Rx Acetaminophen 325 mg PO Q6H PRN 12/22/17 08/22/18 Unknown History Glucagon HCl 1 mg IM ONCE PRN 12/22/17 08/22/18 Unknown History Klor-Con 10 10 meq PO DAILY 12/22/17 08/22/18 Unknown History Lispro Insulin [HumaLOG] See Protocol SC ACHS 12/22/17 08/22/18 Unknown History Simethicone 80 mg PO Q8H PRN 12/22/17 08/22/18 Unknown History levETIRAcetam [Keppra ORAL LIQ] 750 mg PO BID 30 Days bottle 01/04/18 08/22/18 Unknown Rx Active Meds: Active Medications Acetaminophen (Tylenol) 650 mg PO Q4H PRN PRN Reason: Pain MILD(1-3)/Fever >100.5/CARTER Last Admin: 08/24/18 22:55 Dose: 650 mg Documented by: Amlodipine Besylate (Norvasc) 10 mg PO DAILY [facility] Last Admin: 08/25/18 11:15 Dose: 10 mg Documented by: Lipase/Protease/Amylase (Pancrerosa Billingsley 10,500 Unit) 1 each FEEDTUBE PRN PRN PRN Reason: For Clogged Feeding Tube Aspirin (Baby Aspirin) 81 mg PO DAILY [facility] Last Admin: 08/25/18 11:15 Dose: 81 mg Documented by: Clonidine HCl (Catapres-Tts Patch) 0.3 mg TD QWEEK [facility] Last Admin: 08/24/18 10:46 Dose: 0.3 mg Documented by: Dextrose (D50w (25gm) Syringe) 50 ml IV PRN PRN PRN Reason: Hypoglycemia Fluoxetine HCl (Prozac) 40 mg PO QDAY [facility] Last Admin: 08/25/18 11:16 Dose: 40 mg Documented by: Heparin Sodium (Porcine) (Heparin) 5,000 unit SUB-Q Q12HR [facility] Last Admin: 08/25/18 11:14 Dose: 5,000 unit Documented by: Hydralazine HCl (Apresoline) 25 mg PO Q8HR [facility] Last Admin: 08/25/18 06:49 Dose: 25 mg Documented by: Hydralazine HCl (Apresoline) 10 mg IV Q4HR PRN PRN Reason: HTN >155/90 Last Admin: 08/25/18 11:56 Dose: 10 mg Documented by: Levetiracetam 1,000 mg/ (Dextrose) 110 mls @ 400 mls/hr IV Q12HR [facility] Last Admin: 08/25/18 10:00 Dose: 400 mls/hr Documented by: Sodium Bicarbonate 100 meq/ (Sterile Water) 1,100 mls @ 100 mls/hr IV DIRECT [facility] Last Admin: 08/24/18 10:40 Dose: 100 mls/hr Documented by: Meropenem (Merrem/Ns 500 Mg/50 Ml) 500 mg in 50 mls @ 50 mls/hr IV Q6HR [facility] Insulin Human Isoph/Insulin Regular (Humulin 70/30) 15 unit SUB-Q BIDDIAB [facility] Last Admin: 08/25/18 12:00 Dose: 15 unit Documented by: Insulin Human Regular (Humulin R) 0 units SUB-Q Q6HR [facility]; Protocol Last Admin: 08/25/18 12:01 Dose: 8 units Documented by: Lorazepam (Ativan) 1 mg IV Q4H PRN PRN Reason: Seizures Olanzapine (Zyprexa) 2.5 mg PO DAILY [facility] Last Admin: 08/25/18 11:15 Dose: 2.5 mg Documented by: Ondansetron HCl (Zofran) 4 mg IV Q8H PRN PRN Reason: Nausea And Vomiting Simple Syrup (Simple Syrup) 15 ml FEEDTUBE PRN PRN PRN Reason: Hypoglycemia Simple Syrup (Simple Syrup) 30 ml FEEDTUBE PRN PRN PRN Reason: Hypoglycemia Sodium Bicarbonate (Sodium Bicarbonate) 325 mg FEEDTUBE PRN PRN PRN Reason: For Clogged Feeding Tube Sodium Chloride (Sodium Chloride Flush Syringe 10 Ml) 10 ml IV BID [facility] Last Admin: 08/25/18 11:16 Dose: 10 ml Documented by: Sodium Chloride (Sodium Chloride Flush Syringe 10 Ml) 10 ml IV PRN PRN PRN Reason: LINE FLUSH Spironolactone (Aldactone) 50 mg PO QDAY [facility] Last Admin: 08/25/18 11:14 Dose: 50 mg Documented by: Physical Examination - Physical Exam Narrative exam: General appearance: somnolent in NAD non verbal Eyes: anicteric sclerae, moist conjunctivae; no lid-lag; PERRLA HENT: Atraumatic; oropharynx limted +NGT Neck: Trachea midline; supple, no thyromegaly or lymphadenopathy Lungs: CTA CV: RRR Abdomen: Soft, non-tender Extremities: left AKA Skin: Normal temperature, turgor and texture; no rash, ulcers or subcutaneous nodules Psych: no agitated. Neuro: somnolent non verbal - Constitutional Vitals: Vital Signs Temp Pulse Resp BP Pulse Ox 98.6 F 87 24 194/56 99 08/25/18 06:07 08/25/18 06:07 08/25/18 06:07 08/25/18 11:56 08/25/18 06:07 Temperature -Last 24 Hours Temperature 98.6 F Temperature 99.7 F Temperature 100.5 F Results - Labs CBC & Chem 7: 08/24/18 04:37 08/25/18 04:30 Labs: Abnormal lab results 08/24/18 08/25/18 08/25/18 Range/Units 23:44 04:30 06:10 Carbon Dioxide 18 L (22-30) mmol/L BUN 39 H (7-17) mg/dL Creatinine 2.4 H (0.7-1.2) mg/dL Glucose 343 H (65-100) mg/dL POC Glucose 421 H 358 H (70-105) 08/25/18 Range/Units 11:51 Carbon Dioxide (22-30) mmol/L BUN (7-17) mg/dL Creatinine (0.7-1.2) mg/dL Glucose (65-100) mg/dL POC Glucose 406 H (70-105) Assessment and Plan Cultures: Urine culture 08/22/2018 ESBL E coli. Assessment: 62 y/o female with history of diabetes, hypertension, seizure, CAD, PVD s/p AKA, endometrial cancer s/p hysterectomy, malnutrition admitted on 08/25/2018 due to prolonged seizures found to have a UTI: 1) Sepsis: Present on admission, manifested by fever, leukocytosis. Etiology most likely reactive from status epilecticus +/- ESBL E coli UTI. 2) ESBL E coli UTI: UA with 42 wbc, trace LE. Urine culture 08/22/2018 ESBL E coli. 3) CLINT: renally dosed all antibiotics 4) Status epilecticus Recommendations: - continue meropenem 1 gm IV q12 total 3 days (short course to avoid carbapenem-related seizures) - renal US - contact isolation Will follow. Mariya Weber MD Infectious Diseases [facility] M [phone] O [phone]
[2018-08-25] MEDS: MERREM 1,000 MG in NACL 0.9% 100 ML IV SCH (16:05)
[2018-08-25] MEDS ORDERED: MERREM/NS 500 MG/50 ML 500 MG/50 ML BAG IV SCH (18:00)
[2018-08-25] MEDS: SODIUM BICARBONATE 100 MEQ in STERILE WATER 1,000 ML IV SCH (18:41)
--- NOTE | 2018-08-25 19:13 | Progress Note ---
Assessment and Plan Assessment and plan: --Sepsis secondary to UTI /ESBL ;present on admission Meropenem, IV fluids, contact isolation, ID consult --Hypertensive Emergency: Blood pressures reasonably level s/p cardine drip, onAmlodipine, hydralazine, clonidine, add coreg Adjust dosages as needed --Status epilepticus: Seizure precautions, increase keppra to 1000mg bid Ativan when necessary, nephrology following, follow neuro workup --CLINT on CKD 3: Vasomotor nephropathy Gentle hydration, monitor renal function, avoid nephrotoxins, Nephrology evaluation --Moderate to severe malnutrition: Nutrition supplements Supportive care, nutrition consult if needed --Severe debility; physical therapy occupational therapy Supportive care --Moderate malnutrition/hypoalbuminemia; Nutrition supplements, nutrition consult, supportive care --Insulin-dependent diabetes; Accu-Chek sliding scale coverage and ADA diet Insulin as needed,hemoglobin A1c 8.3 --History of left AKA: Supportive care --History of seizures; seizure precautions Antiepileptic medications, neurology evaluation --History of endometrial cancer status post hysterectomy Check MRI of the brain, to rule out possible metastatic lesions --History of major depression; continue current antidepression medications Psych evaluation if needed --Dyslipidemia; stable on lipid-lowering medicine, low-cholesterol diet --DVT Prophylaxis; Lovenox Monitor closely and adjust the management as needed Plan of care is reviewed with the patient, and her nurse History Interval history: Patient seen and examined medical records reviewed Patient is lethargic and minimally communicative Blood pressures and blood sugars are poorly controlled Vital signs reviewed Hospitalist Physical - Constitutional Vitals: Temp Pulse Resp BP Pulse Ox 99.5 F 85 16 180/54 97 08/25/18 15:44 08/25/18 15:44 08/25/18 15:44 08/25/18 17:50 08/25/18 15:44 General appearance: Present: no acute distress, well-nourished, obese, other (still nonverbal) - EENT Eyes: Present: PERRL, EOM intact - Neck Neck: Present: supple, normal ROM - Respiratory Respiratory effort: normal Respiratory: bilateral: diminished, negative: rales, rhonchi, wheezing - Cardiovascular Rhythm: regular Heart Sounds: Present: S1 & S2 - Extremities Extremities: no ischemia, No edema - Abdominal General gastrointestinal: soft, non-tender, non-distended, normal bowel sounds - Integumentary Integumentary: Present: clear, warm - Psychiatric Psychiatric: other (noncommunicative) - Neurologic Neurologic: other (noncommunicative) Results - Labs CBC & Chem 7: 08/24/18 04:37 08/25/18 04:30 Labs: Laboratory Last Values WBC TNR 08/24/18 04:37 RBC TNR 08/24/18 04:37 Hgb TNR 08/24/18 04:37 Hct TNR 08/24/18 04:37 MCV TNR 08/24/18 04:37 MCH TNR 08/24/18 04:37 MCHC TNR 08/24/18 04:37 RDW TNR 08/24/18 04:37 Plt Count TNR 08/24/18 04:37 Lymph % (Auto) Neonatal Doctor 08/24/18 04:37 Angelina % (Auto) Neonatal Doctor 08/24/18 04:37 Eos % (Auto) Neonatal Doctor 08/24/18 04:37 Baso % (Auto) Neonatal Doctor 08/24/18 04:37 Lymph # Neonatal Doctor 08/24/18 04:37 Angelina # Neonatal Doctor 08/24/18 04:37 Eos # Neonatal Doctor 08/24/18 04:37 Baso # Neonatal Doctor 08/24/18 04:37 Add Manual Diff Complete 08/23/18 09:05 Total Counted 100 08/23/18 09:05 Seg Neutrophils % Neonatal Doctor 08/24/18 04:37 Seg Neuts % (Manual) 90.0 % (40.0-70.0) H 08/23/18 09:05 0 % 08/23/18 09:05 8.0 % (13.4-35.0) L 08/23/18 09:05 Reactive Lymphs % (Man) 0 % 08/23/18 09:05 2.0 % (0.0-7.3) 08/23/18 09:05 0 % (0.0-4.3) 08/23/18 09:05 0 % (0.0-1.8) 08/23/18 09:05 0 % 08/23/18 09:05 0 % 08/23/18 09:05 0 % 08/23/18 09:05 0 % 08/23/18 09:05 Nucleated RBC % Not Reportable 08/23/18 09:05 Seg Neutrophils # Neonatal Doctor 08/24/18 04:37 Seg Neutrophils # Man 17.9 K/mm3 (1.8-7.7) H 08/23/18 09:05 Band Neutrophils # 0.0 K/mm3 08/23/18 09:05 1.6 K/mm3 (1.2-5.4) 08/23/18 09:05 Abs React Lymphs (Man) 0.0 K/mm3 08/23/18 09:05 0.4 K/mm3 (0.0-0.8) 08/23/18 09:05 0.0 K/mm3 (0.0-0.4) 08/23/18 09:05 0.0 K/mm3 (0.0-0.1) 08/23/18 09:05 0.0 K/mm3 08/23/18 09:05 0.0 K/mm3 08/23/18 09:05 0.0 K/mm3 08/23/18 09:05 Blast Cells # 0.0 K/mm3 08/23/18 09:05 WBC Morphology Not Reportable 08/23/18 09:05 Hypersegmented Neuts Not Reportable 08/23/18 09:05 Hyposegmented Neuts Not Reportable 08/23/18 09:05 Hypogranular Neuts Not Reportable 08/23/18 09:05 Not Reportable 08/23/18 09:05 Not Reportable 08/23/18 09:05 Not Reportable 08/23/18 09:05 Not Reportable 08/23/18 09:05 Not Reportable 08/23/18 09:05 Not Reportable 08/23/18 09:05 Consistent w auto 08/23/18 09:05 Not Reportable 08/23/18 09:05 Plt Clumps, EDTA Not Reportable 08/23/18 09:05 Not Reportable 08/23/18 09:05 Not Reportable 08/23/18 09:05 Not Reportable 08/23/18 09:05 Plt Morphology Comment Not Reportable 08/23/18 09:05 RBC Morphology Normal 08/23/18 09:05 Dimorphic RBCs Not Reportable 08/23/18 09:05 Not Reportable 08/23/18 09:05 Not Reportable 08/23/18 09:05 Not Reportable 08/23/18 09:05 Not Reportable 08/23/18 09:05 Not Reportable 08/23/18 09:05 Not Reportable 08/23/18 09:05 Not Reportable 08/23/18 09:05 Not Reportable 08/23/18 09:05 Not Reportable 08/23/18 09:05 Not Reportable 08/23/18 09:05 Not Reportable 08/23/18 09:05 Not Reportable 08/23/18 09:05 Not Reportable 08/23/18 09:05 Not Reportable 08/23/18 09:05 Not Reportable 08/23/18 09:05 Not Reportable 08/23/18 09:05 Not Reportable 08/23/18 09:05 Not Reportable 08/23/18 09:05 Not Reportable 08/23/18 09:05 Acanthocytes (Spur) Not Reportable 08/23/18 09:05 Rouleaux Not Reportable 08/23/18 09:05 Not Reportable 08/23/18 09:05 Not Reportable 08/23/18 09:05 Not Reportable 08/23/18 09:05 Not Reportable 08/23/18 09:05 Hem Pathologist Commnt No 08/23/18 09:05 Sodium 137 mmol/L (137-145) 08/25/18 04:30 Potassium 3.9 mmol/L (3.6-5.0) 08/25/18 04:30 Chloride 104.4 mmol/L (98-107) 08/25/18 04:30 Carbon Dioxide 18 mmol/L (22-30) L 08/25/18 04:30 19 mmol/L 08/25/18 04:30 BUN 39 mg/dL (7-17) H 08/25/18 04:30 2.4 mg/dL (0.7-1.2) H 08/25/18 04:30 Estimated GFR 25 ml/min 08/25/18 04:30 16 % 08/25/18 04:30 Glucose 343 mg/dL (65-100) H 08/25/18 04:30 POC Glucose 406 (70-105) H 08/25/18 11:51 8.3 % (4-6) H 08/23/18 01:03 313 Mosm/kg 08/23/18 10:10 Lactic Acid 0.80 mmol/L (0.7-2.0) 08/23/18 10:10 7.7 mg/dL (3.5-7.6) H 08/23/18 09:05 Calcium 8.4 mg/dL (8.4-10.2) 08/25/18 04:30 Phosphorus 3.70 mg/dL (2.5-4.5) 08/23/18 09:05 Magnesium 1.70 mg/dL (1.7-2.3) 08/23/18 09:05 0.30 mg/dL (0.1-1.2) 08/23/18 09:05 AST 19 units/L (5-40) 08/23/18 09:05 ALT 7 units/L (7-56) 08/23/18 09:05 93 units/L (35-129) 08/23/18 09:05 612 units/L (30-135) H 08/23/18 09:05 7.4 g/dL (6.3-8.2) 08/23/18 09:05 3.1 g/dL (3.9-5) L 08/23/18 09:05 0.7 % 08/23/18 09:05 Triglycerides 160 mg/dL (2-149) H 08/23/18 04:08 Cholesterol 325 mg/dL (50-199) H 08/23/18 04:08 248 mg/dL (50-130) H 08/23/18 04:08 60 mg/dL (40-59) H 08/23/18 04:08 5.41 % 08/23/18 04:08 Gracia (Yellow) 08/22/18 19:45 Cloudy (Clear) 08/22/18 19:45 6.0 (5.0-7.0) 08/22/18 19:45 Ur Specific [place] 1.024 (1.003-1.030) 08/22/18 19:45 >500 mg/dL (Negative) 08/22/18 19:45 150 mg/dL (Negative) 08/22/18 19:45 Neg mg/dL (Negative) 08/22/18 19:45 Sm (Negative) 08/22/18 19:45 Neg (Negative) 08/22/18 19:45 Neg (Negative) 08/22/18 19:45 < 2.0 mg/dL (<2.0) 08/22/18 19:45 Ur Leukocyte Esterase Tr (Negative) 08/22/18 19:45 42.0 /HPF (0.0-6.0) H 08/22/18 19:45 11.0 /HPF (0.0-6.0) 08/22/18 19:45 U Epithel Cells (Auto) 4.0 /HPF (0-13.0) 08/22/18 19:45 4+ /HPF (Negative) 08/22/18 19:45 Hyaline Casts 7 /LPF 08/22/18 19:45 1+ /HPF 08/22/18 19:45 Active Medications - Current Medications Current Medications: Generic Name Dose Route Start Last Admin Trade Name Freq PRN Reason Stop Dose Admin Acetaminophen 650 mg 08/22/18 23:50 08/24/18 22:55 Tylenol PO 650 mg Q4H PRN Administration Pain MILD(1-3)/Fever >100.5/CARTER Amlodipine Besylate 10 mg 08/24/18 10:00 08/25/18 11:15 Norvasc PO 10 mg DAILY NASH Administration Lipase/Protease/Amylase 1 each 08/23/18 15:[address] 10,500 Unit FEEDTUBE PRN PRN For Clogged Feeding Tube Aspirin 81 mg 08/24/18 10:00 08/25/18 11:15 Baby Aspirin PO 81 mg DAILY NASH Administration Clonidine HCl 0.3 mg 08/24/18 10:00 08/24/18 10:46 Catapres-Tts Patch TD 0.3 mg QWEEK NASH Administration Dextrose 50 ml 08/22/18 23:50 D50w (25gm) Syringe IV PRN PRN Hypoglycemia Fluoxetine HCl 40 mg 08/24/18 10:00 08/25/18 11:16 Prozac PO 40 mg QDAY NASH Administration Heparin Sodium (Porcine) 5,000 unit 08/23/18 10:00 08/25/18 11:14 Heparin SUB-Q 5,000 unit Q12HR NASH Administration Hydralazine HCl 25 mg 08/24/18 14:00 08/25/18 17:50 Apresoline PO 25 mg Q8HR NASH Administration Hydralazine HCl 10 mg 08/24/18 07:32 08/25/18 17:50 Apresoline IV 10 mg Q4HR PRN Administration HTN >155/90 Levetiracetam 1,000 mg/ 110 mls @ 400 mls/hr 08/23/18 10:00 08/25/18 10:00 Dextrose IV 400 mls/hr Q12HR NASH Administration Sodium Bicarbonate 100 meq/ 1,100 mls @ 100 mls/hr 08/24/18 10:30 08/25/18 18:41 Sterile Water IV 100 mls/hr DIRECT NASH Administration Meropenem 1,000 mg/ Sodium 100 mls @ 100 mls/hr 08/25/18 16:00 08/25/18 16:05 Chloride IV 100 mls/hr Q12H NASH Administration Insulin Human Isoph/Insulin Regular 15 unit 08/25/18 12:00 08/25/18 17:49 Humulin 70/30 SUB-Q 15 unit BIDDIAB NASH Administration Insulin Human Regular 0 units 08/23/18 06:00 08/25/18 17:48 Humulin R SUB-Q 4 units Q6HR NASH Administration Protocol Lorazepam 1 mg 08/23/18 01:58 Ativan IV Q4H PRN Seizures Olanzapine 2.5 mg 08/24/18 10:00 08/25/18 11:15 Zyprexa PO 2.5 mg DAILY NASH Administration Ondansetron HCl 4 mg 08/22/18 23:50 Zofran IV Q8H PRN Nausea And Vomiting Simple Syrup 15 ml 08/23/18 15:27 Simple Syrup FEEDTUBE PRN PRN Hypoglycemia Simple Syrup 30 ml 08/23/18 15:27 Simple Syrup FEEDTUBE PRN PRN Hypoglycemia Sodium Bicarbonate 325 mg 08/23/18 15:27 Sodium Bicarbonate FEEDTUBE PRN PRN For Clogged Feeding Tube Sodium Chloride 10 ml 08/22/18 23:50 08/25/18 11:16 Sodium Chloride Flush Syringe 10 Ml IV 10 ml BID NASH Administration Sodium Chloride 10 ml 08/23/18 00:12 Sodium Chloride Flush Syringe 10 Ml IV PRN PRN LINE FLUSH Spironolactone 50 mg 08/25/18 10:00 08/25/18 11:14 Aldactone PO 50 mg QDAY NASH Administration Nutrition/Malnutrition Assess - Dietary Evaluation Nutrition/Malnutrition Findings: Nutrition Notes Start: 08/23/18 15:56 Freq: Status: Active Protocol: Document 08/25/18 14:24 RM (Rec: 08/25/18 14:38 RM [email or web address]) Nutrition Notes Initial or Follow up Reassessment Current Diagnosis Acute Kidney Injury,CKD(stage I-IV),Coronary Artery Disease, Diabetes,Hypertension, Hyperlipidemia Other Pertinent Diagnosis PVD, Hx endometrial CA, Seizures, AKA Current Diet Osmolite 1.5 at 45 ml/hr Labs/Tests K 3.9 BG 343 Pertinent Medications Reviewed Height 5 ft Weight 89.3 kg [place] Body Weight (kg) 45.45 BMI 38.4 Subjective/Other Information Pt moved from ICU to . Observed Osmolite infusing at goal rate. Burn Absent Trauma Absent #1 Nutrition Diagnosis Inadequate oral intake Diagnosis Progress(for reassessment Continues documentation) Is patient on ventilator? No Is Patient Ambulatory and/or Out of Bed No REE-([facility]-confined to bed) 1642.476 Kcal/Kg value to use for calculation 15 Approximate Energy Requirements Using 1340 kcal/Kg Calculation Used for Recommendations Kcal/kg Additional Notes Protein Needs: 54-67g (0.8-1g/ kg 67kg adjBW) Fluid Needs: 1 ml/kcal Nutrition Intervention Nutrition Support: Change to Glucerna 1.2 at 50 ml/hr Water flush of 100 mls q 4 hrs Kcal 1,440 Protein (gm) 72 Fluid (mL) 966 Goal #1 TF tolerance Goal #2 Meet at least 75% of calorie and protein needs via TF Anticipated Discharge Needs: Unable to determine at this time Follow-Up By: 08/29/18 Additional Comments Follow for TF tolerance, K lab
[2018-08-25] MEDS: COREG PO SCH (21:26)
[2018-08-26] MEDS: HumaLOG SUB-Q SCH ×4 (00:30→17:29)
[2018-08-26] MEDS: HumuLIN R SUB-Q SCH (00:31)
[2018-08-26] MEDS: MERREM 1,000 MG in NACL 0.9% 100 ML IV SCH ×2 (05:34→16:00)
[2018-08-26] MEDS: APRESOLINE PO SCH ×3 (05:35→21:55)
[2018-08-26] MEDS: SODIUM BICARBONATE 100 MEQ in STERILE WATER 1,000 ML IV SCH (06:45)
[2018-08-26] MEDS: APRESOLINE IV PRN (06:54)
[2018-08-26 08:31] LABS: Calcium 8.4 mg/dL (8.4-10.2)
--- NOTE | 2018-08-26 09:13 | Progress Note ---
Subjective Interval history: Patient was seen today for follow-up, regarding multiple renal related issues Events of 24 hours were noted, status post neurology evaluation Blood pressure control slowly improving Interdisciplinary Notes were also reviewed from past 24 hours Vitals labs intake output medications: Reviewed Past medical history: Reviewed Allergies: Reviewed Social history: Reviewed Family history: Reviewed Physical examination Gen.: No acute distress HEENT: Mild pallor nor icterus no uremic order Neck: Supple without any mass or JVD Chest: Clear to auscultation anteriorly Heart: Regular rate and rhythm S1 and S2 heard Abdomen: Soft nontender no suprapubic fullness no masses no renal bruit Extremity: Edema , no peripheral cyanosis Skin: No petechial rashes dry skin Assessment and plan Renal failure: Patient likely has chronic kidney disease her baseline creatinine is around 2.3 this admission and currently around 2.1 Metabolic acidosis: Currently better, continue to follow Ultrasonogram kidneys 2018 showed increased echogenicity Ultrasonogram follow-up obtained August 2018 essentially unchanged Accelerated hypertension we'll continue to adjust her blood pressure medication likely she may have secondary hypertension workup in progress follow-up on aldosterone as well as plasma renin level blood pressure today is around 168/47 Will set parameters for losartan as well as Aldactone to be held for potassium over 5 Hypokalemia with uncontrolled hypertension quite likely patient does have secondary hypertension, we'll consider adding low-dose angiotensin receptor georges along with spironolactone and follow renal function closely Patient has multiple comorbidities and underlying chronic kidney disease Noted to have urinary tract infection, currently on antibiotic Admitted with uncontrolled seizure, also has uncontrolled hypertension which is slowly improving Patient appeared to be postictal for the last few days but slowly improving We'll continue to follow and make recommendation from renal standpoint Objective - Vital Signs Vital signs: Vital Signs - 12hr 08/25/18 08/25/18 08/25/18 21:23 23:24 23:30 Temperature 97.4 F L 99.0 F Pulse Rate 81 66 Respiratory 18 24 18 Rate Blood Pressure 173/51 153/53 O2 Sat by Pulse 97 97 Oximetry 08/26/18 08/26/18 08/26/18 04:58 05:33 06:47 Temperature 98.4 F 98.6 F Pulse Rate 75 75 Respiratory 24 18 18 Rate Blood Pressure 186/58 188/59 188/51 O2 Sat by Pulse 96 94 Oximetry 08/26/18 07:31 Temperature Pulse Rate 77 Respiratory 18 Rate Blood Pressure 168/47 O2 Sat by Pulse 100 Oximetry - Lab 08/24/18 04:37 08/26/18 06:58 Most recent lab results Calcium 8.4 mg/dL (8.4-10.2) 08/26/18 06:58 Phosphorus 3.70 mg/dL (2.5-4.5) 08/23/18 09:05 Magnesium 1.70 mg/dL (1.7-2.3) 08/23/18 09:05 Medications & Allergies - Medications Allergies/Adverse Reactions: Allergies No Known Allergies Allergy (Unverified 06/05/17 13:30) Home Medications: Home Medications Medication Instructions Recorded Confirmed Last Taken Type Aspirin 81 mg PO DAILY 11/14/17 08/22/18 Unknown History Megestrol Acetate 800 mg PO DAILY 11/14/17 08/22/18 Unknown History OLANZapine [Zyprexa] 2.5 mg PO DAILY 11/14/17 08/22/18 Unknown History FLUoxetine [PROzac] 40 mg PO QDAY #30 capsule 11/26/17 08/22/18 Unknown Rx Ferrous Sulfate [Ferrous Sulfate 300 mg PO QDAY #30 oral.liqd 11/26/17 08/22/18 Unknown Rx Oral Liq 300 Mg/5 Ml] Pantoprazole [Protonix TAB] 40 mg PO QDAY #30 tablet 11/26/17 08/22/18 Unknown Rx amLODIPine [Norvasc] 10 mg PO DAILY #30 tablet 11/26/17 08/22/18 Unknown Rx Carvedilol [Coreg] 25 mg PO BID tablet 12/06/17 08/22/18 Unknown Rx cloNIDine [Catapres] 0.1 mg PO Q8H tablet 12/06/17 08/22/18 Unknown Rx traMADol [Ultram 50 MG tab] 50 mg PO Q12HR PRN #20 tablet 12/06/17 08/22/18 Unknown Rx Acetaminophen 325 mg PO Q6H PRN 12/22/17 08/22/18 Unknown History Glucagon HCl 1 mg IM ONCE PRN 12/22/17 08/22/18 Unknown History Klor-Con 10 10 meq PO DAILY 12/22/17 08/22/18 Unknown History Lispro Insulin [HumaLOG] See Protocol SC ACHS 12/22/17 08/22/18 Unknown History Simethicone 80 mg PO Q8H PRN 12/22/17 08/22/18 Unknown History levETIRAcetam [Keppra ORAL LIQ] 750 mg PO BID 30 Days bottle 01/04/18 08/22/18 Unknown Rx Active Medications: Generic Name Dose Route Start Last Admin Trade Name Freq PRN Reason Stop Dose Admin Acetaminophen 650 mg 08/22/18 23:50 08/24/18 22:55 Tylenol PO 650 mg Q4H PRN Administration Pain MILD(1-3)/Fever >100.5/CARTER Amlodipine Besylate 10 mg 08/24/18 10:00 08/25/18 11:15 Norvasc PO 10 mg DAILY NASH Administration Lipase/Protease/Amylase 1 each 08/23/18 15:27 Pancreaze 10,500 Unit FEEDTUBE PRN PRN For Clogged Feeding Tube Aspirin 81 mg 08/24/18 10:00 08/25/18 11:15 Baby Aspirin PO 81 mg DAILY NASH Administration Carvedilol 25 mg 08/25/18 22:00 08/25/18 21:26 Coreg PO 25 mg BID NASH Administration Clonidine HCl 0.3 mg 08/24/18 10:00 08/24/18 10:46 Catapres-Tts Patch TD 0.3 mg QWEEK NASH Administration Dextrose 50 ml 08/22/18 23:50 D50w (25gm) Syringe IV PRN PRN Hypoglycemia Fluoxetine HCl 40 mg 08/24/18 10:00 08/25/18 11:16 Prozac PO 40 mg QDAY NASH Administration Heparin Sodium (Porcine) 5,000 unit 08/23/18 10:00 08/25/18 21:27 Heparin SUB-Q 5,000 unit Q12HR NASH Administration Hydralazine HCl 10 mg 08/24/18 07:32 08/26/18 06:54 Apresoline IV 10 mg Q4HR PRN Administration HTN >155/90 Hydralazine HCl 50 mg 08/25/18 19:14 08/26/18 05:35 Apresoline PO 50 mg Q8HR NASH Administration Levetiracetam 1,000 mg/ 110 mls @ 400 mls/hr 08/23/18 10:00 08/25/18 21:26 Dextrose IV 400 mls/hr Q12HR NASH Administration Sodium Bicarbonate 100 meq/ 1,100 mls @ 100 mls/hr 08/24/18 10:30 08/26/18 06:45 Sterile Water IV 100 mls/hr DIRECT NASH Administration Meropenem 1,000 mg/ Sodium 100 mls @ 100 mls/hr 08/25/18 16:00 08/26/18 05:34 Chloride IV 08/28/18 23:59 100 mls/hr Q12H NASH Administration Insulin Human Isoph/Insulin Regular 15 unit 08/25/18 12:00 08/25/18 17:49 Humulin 70/30 SUB-Q 15 unit BIDDIAB NASH Administration Insulin Human Lispro 0 unit 08/26/18 00:00 08/26/18 06:44 Humalog SUB-Q 3 unit Q6HR NASH Administration Protocol Lorazepam 1 mg 08/23/18 01:58 Ativan IV Q4H PRN Seizures Olanzapine 2.5 mg 08/24/18 10:00 08/25/18 11:15 Zyprexa PO 2.5 mg DAILY NASH Administration Ondansetron HCl 4 mg 08/22/18 23:50 Zofran IV Q8H PRN Nausea And Vomiting Simple Syrup 15 ml 08/23/18 15:27 Simple Syrup FEEDTUBE PRN PRN Hypoglycemia Simple Syrup 30 ml 08/23/18 15:27 Simple Syrup FEEDTUBE PRN PRN Hypoglycemia Sodium Bicarbonate 325 mg 08/23/18 15:27 Sodium Bicarbonate FEEDTUBE PRN PRN For Clogged Feeding Tube Sodium Chloride 10 ml 08/22/18 23:50 08/25/18 21:27 Sodium Chloride Flush Syringe 10 Ml IV 10 ml BID NASH Administration Sodium Chloride 10 ml 08/23/18 00:12 Sodium Chloride Flush Syringe 10 Ml IV PRN PRN LINE FLUSH Spironolactone 50 mg 08/25/18 10:00 08/25/18 11:14 Aldactone PO 50 mg QDAY NASH Administration
[2018-08-26] MEDS: KEPPRA 1,000 MG in D5W 100 ML IV SCH ×2 (09:59→21:55)
[2018-08-26] MEDS: PROzac PO SCH (10:00)
[2018-08-26] MEDS: COREG PO SCH ×2 (10:00→21:56)
[2018-08-26] MEDS: HEPARIN SUB-Q SCH ×2 (10:01→21:56)
[2018-08-26] MEDS: BABY ASPIRIN PO SCH (10:01)
[2018-08-26] MEDS: NORVASC PO SCH (10:02)
[2018-08-26] MEDS: ALDACTONE PO SCH (10:02)
[2018-08-26] MEDS: SODIUM CHLORIDE FLUSH SYRINGE 10 ML IV SCH ×2 (10:12→21:56)
--- NOTE | 2018-08-26 11:49 | Progress Note ---
Assessment and Plan Cultures: Urine culture 08/22/2018 ESBL E coli. Assessment: 62 y/o female with history of diabetes, hypertension, seizure, CAD, PVD s/p AKA, endometrial cancer s/p hysterectomy, malnutrition admitted on 08/25/2018 due to prolonged seizures found to have a UTI: 1) Sepsis: Present on admission, manifested by fever, leukocytosis. Etiology most likely reactive from status epilecticus +/- ESBL E coli UTI. 2) ESBL E coli UTI: UA with 42 wbc, trace LE. Urine culture 08/22/2018 ESBL E coli. Renal US neg 3) CLINT: renally dosed all antibiotics 4) Status epilecticus Recommendations: - continue meropenem 1 gm IV q12 total 3 days (short course to avoid carbapenem- related seizures) D2 of 3 - contact isolation - monitor leukocytosis Will follow. Mariya Weber MD Infectious Diseases Signs Sales Representative [facility] ([facility]) M [phone] O [phone] Subjective Date of service: 08/26/18 Principal diagnosis: UTI Interval history: Patient is more alert, tracking, no fever. Objective - Exam Narrative Exam: General appearance: somnolent in NAD non verbal Eyes: anicteric sclerae, moist conjunctivae; no lid-lag; PERRLA HENT: Atraumatic; oropharynx limted +NGT Neck: Trachea midline; supple, no thyromegaly or lymphadenopathy Lungs: CTA CV: RRR Abdomen: Soft, non-tender Extremities: left AKA Skin: Normal temperature, turgor and texture; no rash, ulcers or subcutaneous nodules Psych: no agitated. Neuro: somnolent non verbal - Constitutional Vitals: Vital Signs Temp Pulse Resp BP Pulse Ox 98.6 F 77 18 168/48 100 08/26/18 05:33 08/26/18 07:31 08/26/18 07:31 08/26/18 10:00 08/26/18 07:31 Temperature -Last 24 Hours Temperature 98.6 F Temperature 98.4 F Temperature 99.0 F Temperature 97.4 F Temperature 99.5 F - Labs CBC & Chem 7: 08/24/18 04:37 08/26/18 06:58 Labs: Abnormal lab results 08/25/18 08/25/18 08/25/18 Range/Units 11:51 17:46 23:28 Potassium (3.6-5.0) mmol/L BUN (7-17) mg/dL Creatinine (0.7-1.2) mg/dL Glucose (65-100) mg/dL POC Glucose 406 H 273 H 173 H (70-105) 08/26/18 08/26/18 08/26/18 Range/Units 05:03 06:58 11:31 Potassium 3.4 L (3.6-5.0) mmol/L BUN 39 H (7-17) mg/dL Creatinine 2.1 H (0.7-1.2) mg/dL Glucose 198 H (65-100) mg/dL POC Glucose 152 H 263 H (70-105)
[2018-08-26] MEDS: COZAAR PO SCH (13:13)
--- NOTE | 2018-08-26 13:16 | Progress Note ---
Assessment and Plan Assessment and plan: --Hypertensive Emergency: Blood pressures are better controlled today s/p cardine drip, on amlodipine, Coreg, clonidine, losartan, hydralazine and spironolactone And when necessary hydralazine, --Sepsis secondary to UTI /ESBL;present on admission ID Evaluation and appreciated Continue Meropenem, IV fluids, contact isolation, --Status epilepticus: Seizure precautions, continue keppra to 1000mg bid Ativan when necessary, neurology evaluated the patient --CLINT on CKD 3: Vasomotor nephropathy Gentle hydration, monitor renal function, avoid nephrotoxins, creatinine level trending down Nephrology following --Moderate to severe malnutrition: Nutrition supplements Supportive care, nutrition consult if needed --Severe debility; physical therapy occupational therapy Supportive care --Insulin-dependent diabetes; Accu-Chek sliding scale coverage and ADA diet Insulin as needed,hemoglobin A1c 8.3 --History of left AKA: Supportive care --History of seizures; seizure precautions Antiepileptic medications, neurology evaluation --History of endometrial cancer status post hysterectomy Check MRI of the brain, to rule out possible metastatic lesions --History of major depression; continue current antidepression medications Psych evaluation if needed --Dyslipidemia; stable on lipid-lowering medicine, low-cholesterol diet --DVT Prophylaxis; Lovenox Monitor closely and adjust the management as needed Plan of care is reviewed with the patient, and her nurse History Interval history: Patient seen and examined this morning in her medical records reviewed Patient is more alert and awake responding to simple questions appropriately Speech and swallow evaluated the patient recommend mechanical soft diet Alert and awake not in acute distress Vital signs noted Hospitalist Physical - Constitutional Vitals: Temp Pulse Resp BP Pulse Ox 99.2 F 68 20 153/86 93 08/26/18 11:22 08/26/18 11:22 08/26/18 11:22 08/26/18 13:13 08/26/18 11:22 General appearance: Present: no acute distress, well-nourished, obese - EENT Eyes: Present: PERRL, EOM intact - Neck Neck: Present: supple, normal ROM - Respiratory Respiratory effort: normal Respiratory: bilateral: diminished, negative: rales, rhonchi, wheezing - Cardiovascular Rhythm: regular Heart Sounds: Present: S1 & S2 - Extremities Extremities: no ischemia, abnormal (above-knee amputation) Extremity abnormal: edema - Abdominal General gastrointestinal: soft, non-tender, non-distended, normal bowel sounds - Integumentary Integumentary: Present: clear, warm - Psychiatric Psychiatric: cooperative - Neurologic Neurologic: moves all extremities, other (minimal communication) Results - Labs CBC & Chem 7: 08/24/18 04:37 08/26/18 06:58 Labs: Laboratory Last Values WBC TNR 08/24/18 04:37 RBC TNR 08/24/18 04:37 Hgb TNR 08/24/18 04:37 Hct TNR 08/24/18 04:37 MCV TNR 08/24/18 04:37 MCH TNR 08/24/18 04:37 MCHC TNR 08/24/18 04:37 RDW TNR 08/24/18 04:37 Plt Count TNR 08/24/18 04:37 Lymph % (Auto) Nut Culler 08/24/18 04:37 Griggs % (Auto) Nut Culler 08/24/18 04:37 Eos % (Auto) Nut Culler 08/24/18 04:37 Baso % (Auto) Nut Culler 08/24/18 04:37 Lymph # Nut Culler 08/24/18 04:37 Griggs # Nut Culler 08/24/18 04:37 Eos # Nut Culler 08/24/18 04:37 Baso # Nut Culler 08/24/18 04:37 Add Manual Diff Complete 08/23/18 09:05 Total Counted 100 08/23/18 09:05 Seg Neutrophils % Nut Culler 08/24/18 04:37 Seg Neuts % (Manual) 90.0 % (40.0-70.0) H 08/23/18 09:05 0 % 08/23/18 09:05 8.0 % (13.4-35.0) L 08/23/18 09:05 Reactive Lymphs % (Man) 0 % 08/23/18 09:05 2.0 % (0.0-7.3) 08/23/18 09:05 0 % (0.0-4.3) 08/23/18 09:05 0 % (0.0-1.8) 08/23/18 09:05 0 % 08/23/18 09:05 0 % 08/23/18 09:05 0 % 08/23/18 09:05 0 % 08/23/18 09:05 Nucleated RBC % Not Reportable 08/23/18 09:05 Seg Neutrophils # Nut Culler 08/24/18 04:37 Seg Neutrophils # Man 17.9 K/mm3 (1.8-7.7) H 08/23/18 09:05 Band Neutrophils # 0.0 K/mm3 08/23/18 09:05 1.6 K/mm3 (1.2-5.4) 08/23/18 09:05 Abs React Lymphs (Man) 0.0 K/mm3 08/23/18 09:05 0.4 K/mm3 (0.0-0.8) 08/23/18 09:05 0.0 K/mm3 (0.0-0.4) 08/23/18 09:05 0.0 K/mm3 (0.0-0.1) 08/23/18 09:05 0.0 K/mm3 08/23/18 09:05 0.0 K/mm3 08/23/18 09:05 0.0 K/mm3 08/23/18 09:05 Blast Cells # 0.0 K/mm3 08/23/18 09:05 WBC Morphology Not Reportable 08/23/18 09:05 Hypersegmented Neuts Not Reportable 08/23/18 09:05 Hyposegmented Neuts Not Reportable 08/23/18 09:05 Hypogranular Neuts Not Reportable 08/23/18 09:05 Not Reportable 08/23/18 09:05 Not Reportable 08/23/18 09:05 Not Reportable 08/23/18 09:05 Not Reportable 08/23/18 09:05 Not Reportable 08/23/18 09:05 Not Reportable 08/23/18 09:05 Consistent w auto 08/23/18 09:05 Not Reportable 08/23/18 09:05 Plt Clumps, EDTA Not Reportable 08/23/18 09:05 Not Reportable 08/23/18 09:05 Not Reportable 08/23/18 09:05 Not Reportable 08/23/18 09:05 Plt Morphology Comment Not Reportable 08/23/18 09:05 RBC Morphology Normal 08/23/18 09:05 Dimorphic RBCs Not Reportable 08/23/18 09:05 Not Reportable 08/23/18 09:05 Not Reportable 08/23/18 09:05 Not Reportable 08/23/18 09:05 Not Reportable 08/23/18 09:05 Not Reportable 08/23/18 09:05 Not Reportable 08/23/18 09:05 Not Reportable 08/23/18 09:05 Not Reportable 08/23/18 09:05 Not Reportable 08/23/18 09:05 Not Reportable 08/23/18 09:05 Not Reportable 08/23/18 09:05 Not Reportable 08/23/18 09:05 Not Reportable 08/23/18 09:05 Not Reportable 08/23/18 09:05 Not Reportable 08/23/18 09:05 Not Reportable 08/23/18 09:05 Not Reportable 08/23/18 09:05 Not Reportable 08/23/18 09:05 Not Reportable 08/23/18 09:05 Acanthocytes (Spur) Not Reportable 08/23/18 09:05 Rouleaux Not Reportable 08/23/18 09:05 Not Reportable 08/23/18 09:05 Not Reportable 08/23/18 09:05 Not Reportable 08/23/18 09:05 Not Reportable 08/23/18 09:05 Hem Pathologist Commnt No 08/23/18 09:05 Sodium 140 mmol/L (137-145) 08/26/18 06:58 Potassium 3.4 mmol/L (3.6-5.0) L 08/26/18 06:58 Chloride 103.9 mmol/L (98-107) 08/26/18 06:58 Carbon Dioxide 22 mmol/L (22-30) 08/26/18 06:58 18 mmol/L 08/26/18 06:58 BUN 39 mg/dL (7-17) H 08/26/18 06:58 2.1 mg/dL (0.7-1.2) H 08/26/18 06:58 Estimated GFR 29 ml/min 08/26/18 06:58 19 % 08/26/18 06:58 Glucose 198 mg/dL (65-100) H 08/26/18 06:58 POC Glucose 263 (70-105) H 08/26/18 11:31 8.3 % (4-6) H 08/23/18 01:03 313 Mosm/kg 08/23/18 10:10 Lactic Acid 0.80 mmol/L (0.7-2.0) 08/23/18 10:10 7.7 mg/dL (3.5-7.6) H 08/23/18 09:05 Calcium 8.4 mg/dL (8.4-10.2) 08/26/18 06:58 Phosphorus 3.70 mg/dL (2.5-4.5) 08/23/18 09:05 Magnesium 1.70 mg/dL (1.7-2.3) 08/23/18 09:05 0.30 mg/dL (0.1-1.2) 08/23/18 09:05 AST 19 units/L (5-40) 08/23/18 09:05 ALT 7 units/L (7-56) 08/23/18 09:05 93 units/L (35-129) 08/23/18 09:05 612 units/L (30-135) H 08/23/18 09:05 7.4 g/dL (6.3-8.2) 08/23/18 09:05 3.1 g/dL (3.9-5) L 08/23/18 09:05 0.7 % 08/23/18 09:05 Triglycerides 160 mg/dL (2-149) H 08/23/18 04:08 Cholesterol 325 mg/dL (50-199) H 08/23/18 04:08 248 mg/dL (50-130) H 08/23/18 04:08 60 mg/dL (40-59) H 08/23/18 04:08 5.41 % 08/23/18 04:08 Gracia (Yellow) 08/22/18 19:45 Cloudy (Clear) 08/22/18 19:45 6.0 (5.0-7.0) 08/22/18 19:45 Ur Specific Reading 1.024 (1.003-1.030) 08/22/18 19:45 >500 mg/dL (Negative) 08/22/18 19:45 150 mg/dL (Negative) 08/22/18 19:45 Neg mg/dL (Negative) 08/22/18 19:45 Sm (Negative) 08/22/18 19:45 Neg (Negative) 08/22/18 19:45 Neg (Negative) 07/15/19 19:45 < 2.0 mg/dL (<2.0) 08/22/18 19:45 Ur Leukocyte Esterase Tr (Negative) 08/22/18 19:45 42.0 /HPF (0.0-6.0) H 08/22/18 19:45 11.0 /HPF (0.0-6.0) 08/22/18 19:45 U Epithel Cells (Auto) 4.0 /HPF (0-13.0) 08/22/18 19:45 4+ /HPF (Negative) 08/22/18 19:45 Hyaline Casts 7 /LPF 08/22/18 19:45 1+ /HPF 08/22/18 19:45 Active Medications - Current Medications Current Medications: Generic Name Dose Route Start Last Admin Trade Name Freq PRN Reason Stop Dose Admin Acetaminophen 650 mg 08/22/18 23:50 08/24/18 22:55 Tylenol PO 650 mg Q4H PRN Administration Pain MILD(1-3)/Fever >100.5/CARTER Amlodipine Besylate 10 mg 08/24/18 10:00 08/26/18 10:02 Norvasc PO 10 mg DAILY NASH Administration Lipase/Protease/Amylase 1 each 08/23/18 15:27 Pancreaze 10,500 Unit FEEDTUBE PRN PRN For Clogged Feeding Tube Aspirin 81 mg 08/24/18 10:00 08/26/18 10:01 Baby Aspirin PO 81 mg DAILY NASH Administration Carvedilol 25 mg 08/25/18 22:00 08/26/18 10:00 Coreg PO 25 mg BID NASH Administration Clonidine HCl 0.3 mg 08/24/18 10:00 08/24/18 10:46 Catapres-Tts Patch TD 0.3 mg QWEEK NASH Administration Dextrose 50 ml 08/22/18 23:50 D50w (25gm) Syringe IV PRN PRN Hypoglycemia Fluoxetine HCl 40 mg 08/24/18 10:00 08/26/18 10:00 Prozac PO 40 mg QDAY NASH Administration Heparin Sodium (Porcine) 5,000 unit 08/23/18 10:00 08/26/18 10:01 Heparin SUB-Q 5,000 unit Q12HR NASH Administration Hydralazine HCl 10 mg 08/24/18 07:32 08/26/18 06:54 Apresoline IV 10 mg Q4HR PRN Administration HTN >155/90 Hydralazine HCl 50 mg 08/25/18 19:14 08/26/18 05:35 Apresoline PO 50 mg Q8HR NASH Administration Levetiracetam 1,000 mg/ 110 mls @ 400 mls/hr 08/23/18 10:00 08/26/18 09:59 Dextrose IV 08/26/18 23:59 400 mls/hr Q12HR NASH Administration Meropenem 1,000 mg/ Sodium 100 mls @ 100 mls/hr 08/25/18 16:00 08/26/18 05:34 Chloride IV 08/28/18 23:59 100 mls/hr Q12H NASH Administration Insulin Human Isoph/Insulin Regular 15 unit 08/25/18 12:00 08/26/18 09:59 Humulin 70/30 SUB-Q 15 unit BIDDIAB NASH Administration Insulin Human Lispro 0 unit 08/26/18 00:00 08/26/18 12:00 Humalog SUB-Q 6 unit Q6HR NASH Administration Protocol Levetiracetam 1,000 mg 08/27/18 10:00 Keppra PO BID NASH Lorazepam 1 mg 08/23/18 01:58 Ativan IV Q4H PRN Seizures Losartan Potassium 25 mg 08/26/18 10:00 08/26/18 13:13 Cozaar PO 25 mg QDAY NASH Administration Olanzapine 2.5 mg 08/24/18 10:00 08/26/18 10:00 Zyprexa PO 2.5 mg DAILY NASH Administration Ondansetron HCl 4 mg 08/22/18 23:50 Zofran IV Q8H PRN Nausea And Vomiting Potassium Chloride 40 meq 08/26/18 13:11 Potassium Chloride FEEDTUBE 08/26/18 13:12 ONCE ONE Simple Syrup 15 ml 08/23/18 15:27 Simple Syrup FEEDTUBE PRN PRN Hypoglycemia Simple Syrup 30 ml 08/23/18 15:27 Simple Syrup FEEDTUBE PRN PRN Hypoglycemia Sodium Bicarbonate 325 mg 08/23/18 15:27 Sodium Bicarbonate FEEDTUBE PRN PRN For Clogged Feeding Tube Sodium Chloride 10 ml 08/22/18 23:50 08/26/18 10:12 Sodium Chloride Flush Syringe 10 Ml IV 10 ml BID NASH Administration Sodium Chloride 10 ml 08/23/18 00:12 Sodium Chloride Flush Syringe 10 Ml IV PRN PRN LINE FLUSH Spironolactone 50 mg 08/25/18 10:00 08/26/18 10:02 Aldactone PO 50 mg QDAY NASH Administration Nutrition/Malnutrition Assess - Dietary Evaluation Nutrition/Malnutrition Findings: Nutrition Notes Start: 08/23/18 15:56 Freq: Status: Active Protocol: Document 08/25/18 14:24 RM (Rec: 08/25/18 14:38 RM [id number]) Nutrition Notes Initial or Follow up Reassessment Current Diagnosis Acute Kidney Injury,CKD(stage I-IV),Coronary Artery Disease, Diabetes,Hypertension, Hyperlipidemia Other Pertinent Diagnosis PVD, Hx endometrial CA, Seizures, AKA Current Diet Osmolite 1.5 at 45 ml/hr Labs/Tests K 3.9 BG 343 Pertinent Medications Reviewed Height 5 ft Weight 89.3 kg [place] Body Weight (kg) 45.45 BMI 38.4 Subjective/Other Information Pt moved from ICU to . Observed Osmolite infusing at goal rate. Burn Absent Trauma Absent #1 Nutrition Diagnosis Inadequate oral intake Diagnosis Progress(for reassessment Continues documentation) Is patient on ventilator? No Is Patient Ambulatory and/or Out of Bed No REE-([place]-confined to bed) 1642.476 Kcal/Kg value to use for calculation 15 Approximate Energy Requirements Using 1340 kcal/Kg Calculation Used for Recommendations Kcal/kg Additional Notes Protein Needs: 54-67g (0.8-1g/ kg 67kg adjBW) Fluid Needs: 1 ml/kcal Nutrition Intervention Nutrition Support: Change to Glucerna 1.2 at 50 ml/hr Water flush of 100 mls q 4 hrs Kcal 1,440 Protein (gm) 72 Fluid (mL) 966 Goal #1 TF tolerance Goal #2 Meet at least 75% of calorie and protein needs via TF Anticipated Discharge Needs: Unable to determine at this time Follow-Up By: 08/29/18 Additional Comments Follow for TF tolerance, K lab
[2018-08-26] MEDS ORDERED: POTASSIUM CHLORIDE FEEDTUBE ONE (14:11)
[2018-08-27] MEDS: HumaLOG SUB-Q SCH ×4 (00:43→18:47)
[2018-08-27] MEDS: MERREM 1,000 MG in NACL 0.9% 100 ML IV SCH ×2 (04:59→18:49)
[2018-08-27] MEDS: APRESOLINE PO SCH ×3 (04:59→22:33)
[2018-08-27] MEDS: APRESOLINE IV PRN (05:00)
[2018-08-27] MEDS: PROzac PO SCH (10:08)
[2018-08-27] MEDS: ALDACTONE PO SCH (10:08)
[2018-08-27] MEDS: COREG PO SCH ×2 (10:09→22:33)
[2018-08-27] MEDS: BABY ASPIRIN PO SCH (10:09)
[2018-08-27] MEDS: COZAAR PO SCH (10:09)
[2018-08-27] MEDS: KEPPRA PO SCH ×2 (10:10→22:29)
[2018-08-27] MEDS: NORVASC PO SCH (10:10)
[2018-08-27] MEDS: SODIUM CHLORIDE FLUSH SYRINGE 10 ML IV SCH ×2 (10:10→22:30)
[2018-08-27] MEDS: HEPARIN SUB-Q SCH ×2 (10:11→22:34)
--- NOTE | 2018-08-27 12:02 | Progress Note ---
Assessment and Plan Impression * Acute kidney injury * Hypertension * Seizure disorder * UTI * Malnutrition * History of endometrial cancer * Depression * Metabolic acidosis Recommendation * Recheck her chemistries again tomorrow. Serum creatinine was 2.1 yesterday * Reduce IV fluid * Adjust antihypertensive meds * Renal ultrasound essentially normal. * Check a renin aldosterone ratio. * Antibiotic as per primary team Subjective Date of service: 08/27/18 Principal diagnosis: UTI Interval history: Patient is awake and alert. Appears comfortable. Currently has a Dobbhoff tube in place. Receiving IV fluid normal saline at 75 mL an hour Objective - Vital Signs Vital signs: Vital Signs - 12hr 08/27/18 06:07 Blood Pressure 160/90 [Right] - General Appearance General appearance: well-developed, well-nourished, appears stated age, obese EENT: PERRL, mucous membranes moist Neck: no JVD, no thyromegaly, no carotid bruit, supple Respiratory: Present: Clear to Ascultation Cardiology: regular, normal heart rate, S1S2, no murmurs Gastrointestinal: normal, normoactive bowel sounds Integumentary: no rash, other (left above-knee amputation) - Lab 08/24/18 04:37 08/26/18 06:58 Most recent lab results Calcium 8.4 mg/dL (8.4-10.2) 08/26/18 06:58 Phosphorus 3.70 mg/dL (2.5-4.5) 08/23/18 09:05 Magnesium 1.70 mg/dL (1.7-2.3) 08/23/18 09:05 Medications & Allergies - Medications Allergies/Adverse Reactions: Allergies No Known Allergies Allergy (Unverified 06/05/17 13:30) Home Medications: Home Medications Medication Instructions Recorded Confirmed Last Taken Type Aspirin 81 mg PO DAILY 11/14/17 08/22/18 Unknown History Megestrol Acetate 800 mg PO DAILY 11/14/17 08/22/18 Unknown History OLANZapine [Zyprexa] 2.5 mg PO DAILY 11/14/17 08/22/18 Unknown History FLUoxetine [PROzac] 40 mg PO QDAY #30 capsule 11/26/17 08/22/18 Unknown Rx Ferrous Sulfate [Ferrous Sulfate 300 mg PO QDAY #30 oral.liqd 11/26/17 08/22/18 Unknown Rx Oral Liq 300 Mg/5 Ml] Pantoprazole [Protonix TAB] 40 mg PO QDAY #30 tablet 11/26/17 08/22/18 Unknown Rx amLODIPine [Norvasc] 10 mg PO DAILY #30 tablet 11/26/17 08/22/18 Unknown Rx Carvedilol [Coreg] 25 mg PO BID tablet 12/06/17 08/22/18 Unknown Rx cloNIDine [Catapres] 0.1 mg PO Q8H tablet 12/06/17 08/22/18 Unknown Rx traMADol [Ultram 50 MG tab] 50 mg PO Q12HR PRN #20 tablet 12/06/17 08/22/18 Unknown Rx Acetaminophen 325 mg PO Q6H PRN 12/22/17 08/22/18 Unknown History Glucagon HCl 1 mg IM ONCE PRN 12/22/17 08/22/18 Unknown History Klor-Con 10 10 meq PO DAILY 12/22/17 08/22/18 Unknown History Lispro Insulin [HumaLOG] See Protocol SC ACHS 12/22/17 08/22/18 Unknown History Simethicone 80 mg PO Q8H PRN 12/22/17 08/22/18 Unknown History levETIRAcetam [Keppra ORAL LIQ] 750 mg PO BID 30 Days bottle 01/04/18 08/22/18 Unknown Rx Active Medications: Generic Name Dose Route Start Last Admin Trade Name Freq PRN Reason Stop Dose Admin Acetaminophen 650 mg 08/22/18 23:50 08/24/18 22:55 Tylenol PO 650 mg Q4H PRN Administration Pain MILD(1-3)/Fever >100.5/CARTER Amlodipine Besylate 10 mg 08/24/18 10:00 08/27/18 10:10 Norvasc PO 10 mg DAILY NASH Administration Lipase/Protease/Amylase 1 each 08/23/18 15:27 Pancrerosa Bill[place]ley 10,500 Unit FEEDTUBE PRN PRN For Clogged Feeding Tube Aspirin 81 mg 08/24/18 10:00 08/27/18 10:09 Baby Aspirin PO 81 mg DAILY NASH Administration Carvedilol 25 mg 08/25/18 22:00 08/27/18 10:09 Coreg PO 25 mg BID NASH Administration Clonidine HCl 0.3 mg 08/24/18 10:00 08/24/18 10:46 Catapres-Tts Patch TD 0.3 mg QWEEK NASH Administration Dextrose 50 ml 08/22/18 23:50 D50w (25gm) Syringe IV PRN PRN Hypoglycemia Fluoxetine HCl 40 mg 08/24/18 10:00 08/27/18 10:08 Prozac PO 40 mg QDAY NASH Administration Heparin Sodium (Porcine) 5,000 unit 08/23/18 10:00 08/27/18 10:11 Heparin SUB-Q 5,000 unit Q12HR NASH Administration Hydralazine HCl 10 mg 08/24/18 07:32 08/27/18 05:00 Apresoline IV 10 mg Q4HR PRN Administration HTN >155/90 Hydralazine HCl 50 mg 08/25/18 19:14 08/27/18 04:59 Apresoline PO 50 mg Q8HR NASH Administration Meropenem 1,000 mg/ Sodium 100 mls @ 100 mls/hr 08/25/18 16:00 08/27/18 04:59 Chloride IV 08/28/18 23:59 100 mls/hr Q12H NASH Administration Insulin Human Isoph/Insulin Regular 15 unit 08/25/18 12:00 08/27/18 08:00 Humulin 70/30 SUB-Q 15 unit BIDDIAB NASH Administration Insulin Human Lispro 0 unit 08/26/18 00:00 08/27/18 06:58 Humalog SUB-Q Not Given Q6HR [facility] Protocol Levetiracetam 1,000 mg 08/27/18 10:00 08/27/18 10:10 Keppra PO 1,000 mg BID NASH Administration Lorazepam 1 mg 08/23/18 01:58 Ativan IV Q4H PRN Seizures Losartan Potassium 25 mg 08/26/18 10:00 08/27/18 10:09 Cozaar PO 25 mg QDAY NASH Administration Olanzapine 2.5 mg 08/24/18 10:00 08/27/18 10:08 Zyprexa PO 2.5 mg DAILY NASH Administration Ondansetron HCl 4 mg 08/22/18 23:50 Zofran IV Q8H PRN Nausea And Vomiting Simple Syrup 15 ml 08/23/18 15:27 Simple Syrup FEEDTUBE PRN PRN Hypoglycemia Simple Syrup 30 ml 08/23/18 15:27 Simple Syrup FEEDTUBE PRN PRN Hypoglycemia Sodium Bicarbonate 325 mg 08/23/18 15:27 Sodium Bicarbonate FEEDTUBE PRN PRN For Clogged Feeding Tube Sodium Chloride 10 ml 08/22/18 23:50 08/27/18 10:10 Sodium Chloride Flush Syringe 10 Ml IV 10 ml BID NASH Administration Sodium Chloride 10 ml 08/23/18 00:12 Sodium Chloride Flush Syringe 10 Ml IV PRN PRN LINE FLUSH Spironolactone 50 mg 08/25/18 10:00 08/27/18 10:08 Aldactone PO 50 mg QDAY NASH Administration
--- NOTE | 2018-08-27 15:06 | Progress Note ---
Assessment and Plan Assessment and plan: --Metabolic encephalopathy; present on admission Multifactorial, sepsis, seizures, acute on chronic kidney disease Significantly improved, patient has been alert awake oriented Dobbhoff discontinued, started on soft diet to advance as tolerated --Hypertensive Emergency: Isn't on admission. Blood pressures are better controlled today s/p cardine drip, on amlodipine, Coreg, clonidine, losartan, hydralazine and spironolactone And when necessary hydralazine, --Sepsis secondary to UTI /ESBL;present on admission Continue Meropenem, IV fluids, contact isolation, ID following --Status epilepticus: Seizure precautions, continue keppra to 1000mg bid Ativan when necessary, neurology evaluated the patient --CLINT on CKD 3: Vasomotor nephropathy Gentle hydration, monitor renal function, avoid nephrotoxins, creatinine level trending down Nephrology following --Moderate to severe malnutrition: Nutrition supplements Supportive care, nutrition consult if needed --Severe debility; physical therapy occupational therapy Supportive care --Insulin-dependent diabetes; Accu-Chek sliding scale coverage and ADA diet Insulin as needed,hemoglobin A1c 8.3 --History of left AKA: Supportive care --History of seizures; seizure precautions Antiepileptic medications, neurology evaluation --History of endometrial cancer status post hysterectomy,stable --History of major depression; continue current antidepression medications Psych evaluation if needed --Dyslipidemia; stable on lipid-lowering medicine, low-cholesterol diet --DVT Prophylaxis; Lovenox Possible discharge back to SNF in 1-2 days Plan of care is reviewed with the patient and her nurse History Interval history: Patient seen and examined today, No new overnight events reported by the nursing Patient is alert and awake and responding appropriately Tolerating soft diet Dobbhoff discontinued Vital signs noted Hospitalist Physical - Constitutional Vitals: Temp Pulse Resp BP Pulse Ox 98.4 F 62 20 166/58 98 08/27/18 12:27 08/27/18 12:27 08/27/18 12:27 08/27/18 12:08/27/18 12:27 General appearance: Present: no acute distress, well-nourished, obese, other (still nonverbal) - EENT Eyes: Present: PERRL, EOM intact - Neck Neck: Present: supple, normal ROM - Respiratory Respiratory effort: normal Respiratory: bilateral: diminished, negative: rales, rhonchi, wheezing - Cardiovascular Rhythm: regular Heart Sounds: Present: S1 & S2 - Extremities Extremities: no ischemia, No edema Extremity abnormal: other (left AKA) - Abdominal General gastrointestinal: soft, non-tender, non-distended, normal bowel sounds Results - Labs CBC & Chem 7: 08/24/18 04:37 08/26/18 06:58 Labs: Laboratory Last Values WBC TNR 08/24/18 04:37 RBC TNR 08/24/18 04:37 Hgb TNR 08/24/18 04:37 Hct TNR 08/24/18 04:37 MCV TNR 08/24/18 04:37 MCH TNR 08/24/18 04:37 MCHC TNR 08/24/18 04:37 RDW TNR 08/24/18 04:37 Plt Count TNR 08/24/18 04:37 Lymph % (Auto) Manager Ent 08/24/18 04:37 [place] % (Auto) Manager Ent 08/24/18 04:37 Eos % (Auto) Manager Ent 08/24/18 04:37 Baso % (Auto) Manager Ent 08/24/18 04:37 Lymph # Manager Ent 08/24/18 04:37 [place] # Manager Ent 08/24/18 04:37 Eos # Manager Ent 08/24/18 04:37 Baso # Manager Ent 08/24/18 04:37 Add Manual Diff Complete 08/23/18 09:05 Total Counted 100 08/23/18 09:05 Seg Neutrophils % Manager Ent 08/24/18 04:37 Seg Neuts % (Manual) 90.0 % (40.0-70.0) H 08/23/18 09:05 0 % 08/23/18 09:05 8.0 % (13.4-35.0) L 08/23/18 09:05 Reactive Lymphs % (Man) 0 % 08/23/18 09:05 2.0 % (0.0-7.3) 08/23/18 09:05 0 % (0.0-4.3) 08/23/18 09:05 0 % (0.0-1.8) 08/23/18 09:05 0 % 08/23/18 09:05 0 % 08/23/18 09:05 0 % 08/23/18 09:05 0 % 08/23/18 09:05 Nucleated RBC % Not Reportable 08/23/18 09:05 Seg Neutrophils # Manager Ent 08/24/18 04:37 Seg Neutrophils # Man 17.9 K/mm3 (1.8-7.7) H 08/23/18 09:05 Band Neutrophils # 0.0 K/mm3 08/23/18 09:05 1.6 K/mm3 (1.2-5.4) 08/23/18 09:05 Abs React Lymphs (Man) 0.0 K/mm3 08/23/18 09:05 0.4 K/mm3 (0.0-0.8) 08/23/18 09:05 0.0 K/mm3 (0.0-0.4) 08/23/18 09:05 0.0 K/mm3 (0.0-0.1) 08/23/18 09:05 0.0 K/mm3 08/23/18 09:05 0.0 K/mm3 08/23/18 09:05 0.0 K/mm3 08/23/18 09:05 Blast Cells # 0.0 K/mm3 08/23/18 09:05 WBC Morphology Not Reportable 08/23/18 09:05 Hypersegmented Neuts Not Reportable 08/23/18 09:05 Hyposegmented Neuts Not Reportable 08/23/18 09:05 Hypogranular Neuts Not Reportable 08/23/18 09:05 Not Reportable 08/23/18 09:05 Not Reportable 08/23/18 09:05 Not Reportable 08/23/18 09:05 Not Reportable 08/23/18 09:05 Not Reportable 08/23/18 09:05 Not Reportable 08/23/18 09:05 Consistent w auto 08/23/18 09:05 Not Reportable 08/23/18 09:05 Plt Clumps, EDTA Not Reportable 08/23/18 09:05 Not Reportable 08/23/18 09:05 Not Reportable 08/23/18 09:05 Not Reportable 08/23/18 09:05 Plt Morphology Comment Not Reportable 08/23/18 09:05 RBC Morphology Normal 08/23/18 09:05 Dimorphic RBCs Not Reportable 08/23/18 09:05 Not Reportable 08/23/18 09:05 Not Reportable 08/23/18 09:05 Not Reportable 08/23/18 09:05 Not Reportable 08/23/18 09:05 Not Reportable 08/23/18 09:05 Not Reportable 08/23/18 09:05 Not Reportable 08/23/18 09:05 Not Reportable 08/23/18 09:05 Not Reportable 08/23/18 09:05 Not Reportable 08/23/18 09:05 Not Reportable 08/23/18 09:05 Not Reportable 08/23/18 09:05 Not Reportable 08/23/18 09:05 Not Reportable 08/23/18 09:05 Not Reportable 08/23/18 09:05 Not Reportable 08/23/18 09:05 Not Reportable 08/23/18 09:05 Not Reportable 08/23/18 09:05 Not Reportable 08/23/18 09:05 Acanthocytes (Spur) Not Reportable 08/23/18 09:05 Rouleaux Not Reportable 08/23/18 09:05 Not Reportable 08/23/18 09:05 Not Reportable 08/23/18 09:05 Not Reportable 08/23/18 09:05 Not Reportable 08/23/18 09:05 Hem Pathologist Commnt No 08/23/18 09:05 Sodium 140 mmol/L (137-145) 08/26/18 06:58 Potassium 3.4 mmol/L (3.6-5.0) L 08/26/18 06:58 Chloride 103.9 mmol/L (98-107) 08/26/18 06:58 Carbon Dioxide 22 mmol/L (22-30) 08/26/18 06:58 18 mmol/L 08/26/18 06:58 BUN 39 mg/dL (7-17) H 08/26/18 06:58 2.1 mg/dL (0.7-1.2) H 08/26/18 06:58 Estimated GFR 29 ml/min 08/26/18 06:58 19 % 08/26/18 06:58 Glucose 198 mg/dL (65-100) H 08/26/18 06:58 POC Glucose 204 (70-105) H 08/27/18 12:16 8.3 % (4-6) H 08/23/18 01:03 313 Mosm/kg 08/23/18 10:10 Lactic Acid 0.80 mmol/L (0.7-2.0) 08/23/18 10:10 7.7 mg/dL (3.5-7.6) H 08/23/18 09:05 Calcium 8.4 mg/dL (8.4-10.2) 08/26/18 06:58 Phosphorus 3.70 mg/dL (2.5-4.5) 08/23/18 09:05 Magnesium 1.70 mg/dL (1.7-2.3) 08/23/18 09:05 0.30 mg/dL (0.1-1.2) 08/23/18 09:05 AST 19 units/L (5-40) 08/23/18 09:05 ALT 7 units/L (7-56) 08/23/18 09:05 93 units/L (35-129) 08/23/18 09:05 612 units/L (30-135) H 08/23/18 09:05 7.4 g/dL (6.3-8.2) 08/23/18 09:05 3.1 g/dL (3.9-5) L 08/23/18 09:05 0.7 % 08/23/18 09:05 Triglycerides 160 mg/dL (2-149) H 08/23/18 04:08 Cholesterol 325 mg/dL (50-199) H 08/23/18 04:08 248 mg/dL (50-130) H 08/23/18 04:08 60 mg/dL (40-59) H 08/23/18 04:08 5.41 % 08/23/18 04:08 [place] (Yellow) 08/22/18 19:45 Cloudy (Clear) 08/22/18 19:45 6.0 (5.0-7.0) 08/22/18 19:45 Ur Specific [place] 1.024 (1.003-1.030) 08/22/18 19:45 >500 mg/dL (Negative) 08/22/18 19:45 150 mg/dL (Negative) 08/22/18 19:45 Neg mg/dL (Negative) 08/22/18 19:45 Sm (Negative) 08/22/18 19:45 Neg (Negative) 07/15/19 19:45 Neg (Negative) 08/22/18 19:45 < 2.0 mg/dL (<2.0) 08/22/18 19:45 Ur Leukocyte Esterase Tr (Negative) 08/22/18 19:45 42.0 /HPF (0.0-6.0) H 08/22/18 19:45 11.0 /HPF (0.0-6.0) 08/22/18 19:45 U Epithel Cells (Auto) 4.0 /HPF (0-13.0) 08/22/18 19:45 4+ /HPF (Negative) 08/22/18 19:45 Hyaline Casts 7 /LPF 08/22/18 19:45 1+ /HPF 08/22/18 19:45 Active Medications - Current Medications Current Medications: Generic Name Dose Route Start Last Admin Trade Name Freq PRN Reason Stop Dose Admin Acetaminophen 650 mg 08/22/18 23:50 08/24/18 22:55 Tylenol PO 650 mg Q4H PRN Administration Pain MILD(1-3)/Fever >100.5/CARTER Amlodipine Besylate 10 mg 08/24/18 10:00 08/27/18 10:10 Norvasc PO 10 mg DAILY NASH Administration Lipase/Protease/Amylase 1 each 08/23/18 15:[address] 10,500 Unit FEEDTUBE PRN PRN For Clogged Feeding Tube Aspirin 81 mg 08/24/18 10:00 08/27/18 10:09 Baby Aspirin PO 81 mg DAILY NASH Administration Carvedilol 25 mg 08/25/18 22:00 08/27/18 10:09 Coreg PO 25 mg BID NASH Administration Clonidine HCl 0.3 mg 08/24/18 10:00 08/24/18 10:46 Catapres-Tts Patch TD 0.3 mg QWEEK NASH Administration Dextrose 50 ml 08/22/18 23:50 D50w (25gm) Syringe IV PRN PRN Hypoglycemia Fluoxetine HCl 40 mg 08/24/18 10:00 08/27/18 10:08 Prozac PO 40 mg QDAY NASH Administration Heparin Sodium (Porcine) 5,000 unit 08/23/18 10:00 08/27/18 10:11 Heparin SUB-Q 5,000 unit Q12HR NASH Administration Hydralazine HCl 10 mg 08/24/18 07:32 08/27/18 05:00 Apresoline IV 10 mg Q4HR PRN Administration HTN >155/90 Hydralazine HCl 50 mg 08/25/18 19:14 08/27/18 13:35 Apresoline PO 50 mg Q8HR NASH Administration Meropenem 1,000 mg/ Sodium 100 mls @ 100 mls/hr 08/25/18 16:00 08/27/18 04:59 Chloride IV 08/28/18 23:59 100 mls/hr Q12H NASH Administration Insulin Human Isoph/Insulin Regular 15 unit 08/25/18 12:00 08/27/18 08:00 Humulin 70/30 SUB-Q 15 unit BIDDIAB NASH Administration Insulin Human Lispro 0 unit 08/26/18 00:00 08/27/18 12:00 Humalog SUB-Q 4 unit Q6HR NASH Administration Protocol Levetiracetam 1,000 mg 08/27/18 10:00 08/27/18 10:10 Keppra PO 1,000 mg BID NASH Administration Lorazepam 1 mg 08/23/18 01:58 Ativan IV Q4H PRN Seizures Losartan Potassium 50 mg 08/27/18 12:06 Cozaar PO QDAY NASH Olanzapine 2.5 mg 08/24/18 10:00 08/27/18 10:08 Zyprexa PO 2.5 mg DAILY NASH Administration Ondansetron HCl 4 mg 08/22/18 23:50 Zofran IV Q8H PRN Nausea And Vomiting Simple Syrup 15 ml 08/23/18 15:27 Simple Syrup FEEDTUBE PRN PRN Hypoglycemia Simple Syrup 30 ml 08/23/18 15:27 Simple Syrup FEEDTUBE PRN PRN Hypoglycemia Sodium Bicarbonate 325 mg 08/23/18 15:27 Sodium Bicarbonate FEEDTUBE PRN PRN For Clogged Feeding Tube Sodium Chloride 10 ml 08/22/18 23:50 08/27/18 10:10 Sodium Chloride Flush Syringe 10 Ml IV 10 ml BID NASH Administration Sodium Chloride 10 ml 08/23/18 00:12 Sodium Chloride Flush Syringe 10 Ml IV PRN PRN LINE FLUSH Spironolactone 50 mg 08/25/18 10:00 08/27/18 10:08 Aldactone PO 50 mg QDAY NASH Administration Nutrition/Malnutrition Assess - Dietary Evaluation Nutrition/Malnutrition Findings: Nutrition Notes Start: 08/23/18 15:56 Freq: Status: Active Protocol: Document 08/25/18 14:24 RM (Rec: 08/25/18 14:38 RM [id number]) Nutrition Notes Initial or Follow up Reassessment Current Diagnosis Acute Kidney Injury,CKD(stage I-IV),Coronary Artery Disease, Diabetes,Hypertension, Hyperlipidemia Other Pertinent Diagnosis PVD, Hx endometrial CA, Seizures, AKA Current Diet Osmolite 1.5 at 45 ml/hr Labs/Tests K 3.9 BG 343 Pertinent Medications Reviewed Height 5 ft Weight 89.3 kg [place] Body Weight (kg) 45.45 BMI 38.4 Subjective/Other Information Pt moved from ICU to . Observed Osmolite infusing at goal rate. Burn Absent Trauma Absent #1 Nutrition Diagnosis Inadequate oral intake Diagnosis Progress(for reassessment Continues documentation) Is patient on ventilator? No Is Patient Ambulatory and/or Out of Bed No REE-([place]-confined to bed) 1642.476 Kcal/Kg value to use for calculation 15 Approximate Energy Requirements Using 1340 kcal/Kg Calculation Used for Recommendations Kcal/kg Additional Notes Protein Needs: 54-67g (0.8-1g/ kg 67kg adjBW) Fluid Needs: 1 ml/kcal Nutrition Intervention Nutrition Support: Change to Glucerna 1.2 at 50 ml/hr Water flush of 100 mls q 4 hrs Kcal 1,440 Protein (gm) 72 Fluid (mL) 966 Goal #1 TF tolerance Goal #2 Meet at least 75% of calorie and protein needs via TF Anticipated Discharge Needs: Unable to determine at this time Follow-Up By: 08/29/18 Additional Comments Follow for TF tolerance, K lab
[2018-08-27 15:41] LABS: Aldo/Plasma Renin Act Ratio 37.5 Ratio (0.9-28.9)
[2018-08-28] MEDS: HumaLOG SUB-Q SCH ×4 (00:50→17:32)
[2018-08-28 04:03] LABS: BUN/Creatinine Ratio 20; Blood Urea Nitrogen 42 mg/dL (7-17); Hemolysis Index 232
[2018-08-28] MEDS ORDERED: KIONEX PO ONE (04:45)
--- NOTE | 2018-08-28 04:49 | Event Note ---
Date: 08/28/18 Critical Lab notice: Pt had Potassium of 6.1; Kayexalate 30gm ordered. Recheck potassium and magnesium ordered entered for 12pm.
[2018-08-28] MEDS: APRESOLINE PO SCH ×3 (05:12→23:13)
[2018-08-28] MEDS: MERREM 1,000 MG in NACL 0.9% 100 ML IV SCH (05:14)
[2018-08-28] MEDS: SODIUM CHLORIDE FLUSH SYRINGE 10 ML IV SCH ×2 (09:19→23:14)
[2018-08-28] MEDS: KEPPRA PO SCH ×2 (09:20→23:13)
[2018-08-28] MEDS: HEPARIN SUB-Q SCH ×2 (09:20→23:14)
[2018-08-28] MEDS: ALDACTONE PO SCH (09:21)
[2018-08-28] MEDS: BABY ASPIRIN PO SCH (09:21)
[2018-08-28] MEDS: NORVASC PO SCH (09:21)
[2018-08-28] MEDS: COREG PO SCH ×2 (09:22→23:14)
[2018-08-28] MEDS: PROzac PO SCH (09:22)
[2018-08-28] MEDS: COZAAR PO SCH (09:22)
--- NOTE | 2018-08-28 12:48 | Progress Note ---
Assessment and Plan Impression * Acute kidney injury * Hypertension * Seizure disorder * UTI * Malnutrition * History of endometrial cancer * Depression * Metabolic acidosis Recommendation * Renal function is stable. Serum creatinine is unchanged at 2.1 * Patient is having some liquid bowel movement. Continue gentle IV hydration * A blood pressure remains elevated. Increase the dose of her hydralazine. * Renal ultrasound essentially normal. * Follow up results of renin aldosterone ratio. Continue Aldactone for now. * Recheck her electrolytes in the morning * Antibiotic as per primary team Subjective Date of service: 08/28/18 Principal diagnosis: UTI Interval history: Patient is awake and alert. Appears comfortable. Currently has a Dobbhoff tube in place. Perineal area seems to be started with large amount of soft liquidish stool Objective - Vital Signs Vital signs: Vital Signs - 12hr 08/28/18 05:05 Temperature 98.4 F Pulse Rate 70 Respiratory 20 Rate Blood Pressure 194/67 O2 Sat by Pulse 100 Oximetry - General Appearance General appearance: well-developed, well-nourished, appears stated age EENT: PERRL, mucous membranes moist Neck: no JVD, no thyromegaly, no carotid bruit, supple Respiratory: Present: Clear to Ascultation Cardiology: regular, normal heart rate, S1S2, no murmurs Gastrointestinal: normal, normoactive bowel sounds Integumentary: other (left above-knee amputation. 1+ edema in her right lower extremity) - Lab 08/24/18 04:37 08/28/18 03:07 Most recent lab results Calcium 8.0 mg/dL (8.4-10.2) L 08/28/18 03:07 Phosphorus 3.70 mg/dL (2.5-4.5) 08/23/18 09:05 Magnesium 1.70 mg/dL (1.7-2.3) 08/23/18 09:05 Medications & Allergies - Medications Allergies/Adverse Reactions: Allergies No Known Allergies Allergy (Unverified 06/05/17 13:30) Home Medications: Home Medications Medication Instructions Recorded Confirmed Last Taken Type Aspirin 81 mg PO DAILY 11/14/17 08/22/18 Unknown History Megestrol Acetate 800 mg PO DAILY 11/14/17 08/22/18 Unknown History OLANZapine [Zyprexa] 2.5 mg PO DAILY 11/14/17 08/22/18 Unknown History FLUoxetine [PROzac] 40 mg PO QDAY #30 capsule 11/26/17 08/22/18 Unknown Rx Ferrous Sulfate [Ferrous Sulfate 300 mg PO QDAY #30 oral.liqd 11/26/17 08/22/18 Unknown Rx Oral Liq 300 Mg/5 Ml] Pantoprazole [Protonix TAB] 40 mg PO QDAY #30 tablet 11/26/17 08/22/18 Unknown Rx amLODIPine [Norvasc] 10 mg PO DAILY #30 tablet 11/26/17 08/22/18 Unknown Rx Carvedilol [Coreg] 25 mg PO BID tablet 12/06/17 08/22/18 Unknown Rx cloNIDine [Catapres] 0.1 mg PO Q8H tablet 12/06/17 08/22/18 Unknown Rx traMADol [Ultram 50 MG tab] 50 mg PO Q12HR PRN #20 tablet 12/06/17 08/22/18 Unknown Rx Acetaminophen 325 mg PO Q6H PRN 12/22/17 08/22/18 Unknown History Glucagon HCl 1 mg IM ONCE PRN 12/22/17 08/22/18 Unknown History Klor-Con 10 10 meq PO DAILY 12/22/17 08/22/18 Unknown History Lispro Insulin [HumaLOG] See Protocol SC ACHS 12/22/17 08/22/18 Unknown History Simethicone 80 mg PO Q8H PRN 12/22/17 08/22/18 Unknown History levETIRAcetam [Keppra ORAL LIQ] 750 mg PO BID 30 Days bottle 01/04/18 08/22/18 Unknown Rx Active Medications: Generic Name Dose Route Start Last Admin Trade Name Freq PRN Reason Stop Dose Admin Acetaminophen 650 mg 08/22/18 23:50 08/24/18 22:55 Tylenol PO 650 mg Q4H PRN Administration Pain MILD(1-3)/Fever >100.5/CARTER Amlodipine Besylate 10 mg 08/24/18 10:00 08/28/18 09:21 Norvasc PO 10 mg DAILY NASH Administration Lipase/Protease/Amylase 1 each 08/23/18 15:27 Teresa Billingsley 10,500 Unit FEEDTUBE PRN PRN For Clogged Feeding Tube Aspirin 81 mg 08/24/18 10:00 08/28/18 09:21 Baby Aspirin PO 81 mg DAILY NASH Administration Carvedilol 25 mg 08/25/18 22:00 08/28/18 09:22 Coreg PO 25 mg BID NASH Administration Clonidine HCl 0.3 mg 08/24/18 10:00 08/24/18 10:46 Catapres-Tts Patch TD 0.3 mg QWEEK NASH Administration Dextrose 50 ml 08/22/18 23:50 D50w (25gm) Syringe IV PRN PRN Hypoglycemia Fluoxetine HCl 40 mg 08/24/18 10:00 08/28/18 09:22 Prozac PO 40 mg QDAY NASH Administration Heparin Sodium (Porcine) 5,000 unit 08/23/18 10:00 08/28/18 09:20 Heparin SUB-Q 5,000 unit Q12HR NASH Administration Hydralazine HCl 10 mg 08/24/18 07:32 08/27/18 05:00 Apresoline IV 10 mg Q4HR PRN Administration HTN >155/90 Hydralazine HCl 50 mg 08/25/18 19:14 08/28/18 05:12 Apresoline PO 50 mg Q8HR NASH Administration Meropenem 1,000 mg/ Sodium 100 mls @ 100 mls/hr 08/25/18 16:00 08/28/18 05:14 Chloride IV 08/28/18 23:59 100 mls/hr Q12H NASH Administration Insulin Human Isoph/Insulin Regular 15 unit 08/25/18 12:00 08/28/18 09:17 Humulin 70/30 SUB-Q 15 unit BIDDIAB NASH Administration Insulin Human Lispro 0 unit 08/26/18 00:00 08/28/18 05:12 Humalog SUB-Q 3 unit Q6HR NASH Administration Protocol Levetiracetam 1,000 mg 08/27/18 10:00 08/28/18 09:20 Keppra PO 1,000 mg BID NASH Administration Lorazepam 1 mg 08/23/18 01:58 Ativan IV Q4H PRN Seizures Losartan Potassium 50 mg 08/27/18 12:06 08/28/18 09:22 Cozaar PO 50 mg QDAY NASH Administration Olanzapine 2.5 mg 08/24/18 10:00 08/28/18 09:20 Zyprexa PO 2.5 mg DAILY NASH Administration Ondansetron HCl 4 mg 07/15/19 23:50 Zofran IV Q8H PRN Nausea And Vomiting Simple Syrup 15 ml 08/23/18 15:27 Simple Syrup FEEDTUBE PRN PRN Hypoglycemia Simple Syrup 30 ml 08/23/18 15:27 Simple Syrup FEEDTUBE PRN PRN Hypoglycemia Sodium Bicarbonate 325 mg 08/23/18 15:27 Sodium Bicarbonate FEEDTUBE PRN PRN For Clogged Feeding Tube Sodium Chloride 10 ml 08/22/18 23:50 08/28/18 09:19 Sodium Chloride Flush Syringe 10 Ml IV 10 ml BID NASH Administration Sodium Chloride 10 ml 08/23/18 00:12 Sodium Chloride Flush Syringe 10 Ml IV PRN PRN LINE FLUSH Spironolactone 50 mg 08/25/18 10:00 08/28/18 09:21 Aldactone PO 50 mg QDAY NASH Administration
--- NOTE | 2018-08-28 13:23 | Progress Note ---
Assessment and Plan Assessment and plan: --Hyperkalemia: Treated appropriately Follow electrolytes --Metabolic encephalopathy; present on admission; resolved Multifactorial, sepsis, seizures, acute on chronic kidney disease --Hypertensive Emergency: Present on admission. Blood pressures are better controlled today s/p cardine drip, on amlodipine, Coreg, clonidine, losartan, hydralazine and spironolactone And when necessary hydralazine, --Sepsis secondary to UTI /ESBL;present on admission Continue Meropenem, last dose today , ID recommend contact isolation --Status epilepticus: Seizure precautions, continue keppra to 1000mg bid Ativan when necessary, neurology evaluated the patient --CLINT on CKD 3: Vasomotor nephropathy Gentle hydration, monitor renal function, avoid nephrotoxins, creatinine level trending down Nephrology following --Moderate to severe malnutrition: Nutrition supplements Supportive care, nutrition consult if needed --Severe debility; physical therapy occupational therapy --Insulin-dependent diabetes; Accu-Chek sliding scale coverage and ADA diet Insulin as needed,hemoglobin A1c 8.3 --History of left AKA: Supportive care --History of endometrial cancer status post hysterectomy,stable --History of major depression; continue current antidepression medications --Dyslipidemia; stable on lipid-lowering medicine, low-cholesterol diet --DVT Prophylaxis; Lovenox Patient is stable for discharge Discharge planning. Case management History Interval history: Patient seen and examined medical records reviewed Patient feels better anxious to go home Last dose of Meropenam today contact isolation Hospitalist Physical - Constitutional Vitals: Temp Pulse Resp BP Pulse Ox 98.4 F 70 20 194/67 100 08/28/18 05:05 08/28/18 05:05 08/28/18 05:05 08/28/18 05:05 08/28/18 05:05 General appearance: Present: no acute distress, well-nourished, obese, other (still nonverbal) - EENT Eyes: Present: PERRL, EOM intact - Neck Neck: Present: supple, normal ROM - Respiratory Respiratory effort: normal Respiratory: bilateral: diminished, negative: rales, rhonchi, wheezing - Cardiovascular Rhythm: regular Heart Sounds: Present: S1 & S2 - Extremities Extremities: no ischemia, No edema, abnormal (above knee amputation) - Abdominal General gastrointestinal: soft, non-tender, non-distended, normal bowel sounds - Integumentary Integumentary: Present: clear, warm - Psychiatric Psychiatric: appropriate mood/affect, cooperative - Neurologic Neurologic: moves all extremities Results - Labs CBC & Chem 7: 08/24/18 04:37 08/28/18 13:05 Labs: Laboratory Last Values WBC TNR 08/24/18 04:37 RBC TNR 08/24/18 04:37 Hgb TNR 08/24/18 04:37 Hct TNR 08/24/18 04:37 MCV TNR 08/24/18 04:37 MCH TNR 08/24/18 04:37 MCHC TNR 08/24/18 04:37 RDW TNR 08/24/18 04:37 Plt Count TNR 08/24/18 04:37 Lymph % (Auto) [employer] 08/24/18 04:37 Cedar % (Auto) [employer] 08/24/18 04:37 Eos % (Auto) [employer] 08/24/18 04:37 Baso % (Auto) [employer] 08/24/18 04:37 Lymph # [employer] 08/24/18 04:37 Cedar # [employer] 08/24/18 04:37 Eos # [employer] 08/24/18 04:37 Baso # [employer] 08/24/18 04:37 Add Manual Diff Complete 08/23/18 09:05 Total Counted 100 08/23/18 09:05 Seg Neutrophils % [employer] 08/24/18 04:37 Seg Neuts % (Manual) 90.0 % (40.0-70.0) H 08/23/18 09:05 0 % 08/23/18 09:05 8.0 % (13.4-35.0) L 08/23/18 09:05 Reactive Lymphs % (Man) 0 % 08/23/18 09:05 2.0 % (0.0-7.3) 08/23/18 09:05 0 % (0.0-4.3) 08/23/18 09:05 0 % (0.0-1.8) 08/23/18 09:05 0 % 08/23/18 09:05 0 % 08/23/18 09:05 0 % 08/23/18 09:05 0 % 08/23/18 09:05 Nucleated RBC % Not Reportable 08/23/18 09:05 Seg Neutrophils # [employer] 08/24/18 04:37 Seg Neutrophils # Man 17.9 K/mm3 (1.8-7.7) H 08/23/18 09:05 Band Neutrophils # 0.0 K/mm3 08/23/18 09:05 1.6 K/mm3 (1.2-5.4) 08/23/18 09:05 Abs React Lymphs (Man) 0.0 K/mm3 08/23/18 09:05 0.4 K/mm3 (0.0-0.8) 08/23/18 09:05 0.0 K/mm3 (0.0-0.4) 08/23/18 09:05 0.0 K/mm3 (0.0-0.1) 08/23/18 09:05 0.0 K/mm3 08/23/18 09:05 0.0 K/mm3 08/23/18 09:05 0.0 K/mm3 08/23/18 09:05 Blast Cells # 0.0 K/mm3 08/23/18 09:05 WBC Morphology Not Reportable 08/23/18 09:05 Hypersegmented Neuts Not Reportable 08/23/18 09:05 Hyposegmented Neuts Not Reportable 08/23/18 09:05 Hypogranular Neuts Not Reportable 08/23/18 09:05 Not Reportable 08/23/18 09:05 Not Reportable 08/23/18 09:05 Not Reportable 08/23/18 09:05 Not Reportable 08/23/18 09:05 Not Reportable 08/23/18 09:05 Not Reportable 08/23/18 09:05 Consistent w auto 08/23/18 09:05 Not Reportable 08/23/18 09:05 Plt Clumps, EDTA Not Reportable 08/23/18 09:05 Not Reportable 08/23/18 09:05 Not Reportable 08/23/18 09:05 Not Reportable 08/23/18 09:05 Plt Morphology Comment Not Reportable 08/23/18 09:05 RBC Morphology Normal 08/23/18 09:05 Dimorphic RBCs Not Reportable 08/23/18 09:05 Not Reportable 08/23/18 09:05 Not Reportable 08/23/18 09:05 Not Reportable 08/23/18 09:05 Not Reportable 08/23/18 09:05 Not Reportable 08/23/18 09:05 Not Reportable 08/23/18 09:05 Not Reportable 08/23/18 09:05 Not Reportable 08/23/18 09:05 Not Reportable 08/23/18 09:05 Not Reportable 08/23/18 09:05 Not Reportable 08/23/18 09:05 Not Reportable 08/23/18 09:05 Not Reportable 08/23/18 09:05 Not Reportable 08/23/18 09:05 Not Reportable 08/23/18 09:05 Not Reportable 08/23/18 09:05 Not Reportable 08/23/18 09:05 Not Reportable 08/23/18 09:05 Not Reportable 08/23/18 09:05 Acanthocytes (Spur) Not Reportable 08/23/18 09:05 Rouleaux Not Reportable 08/23/18 09:05 Not Reportable 08/23/18 09:05 Not Reportable 08/23/18 09:05 Not Reportable 08/23/18 09:05 Not Reportable 08/23/18 09:05 Hem Pathologist Commnt No 08/23/18 09:05 Sodium 134 mmol/L (137-145) L 08/28/18 03:07 Potassium TNR 08/28/18 03:07 Chloride 101.8 mmol/L (98-107) 08/28/18 03:07 Carbon Dioxide 21 mmol/L (22-30) L 08/28/18 03:07 17 mmol/L 08/28/18 03:07 BUN 42 mg/dL (7-17) H 08/28/18 03:07 2.1 mg/dL (0.7-1.2) H 08/28/18 03:07 Estimated GFR 29 ml/min 08/28/18 03:07 20 % 08/28/18 03:07 Glucose 129 mg/dL (65-100) H 08/28/18 03:07 POC Glucose 170 (70-105) H 08/28/18 05:10 8.3 % (4-6) H 08/23/18 01:03 313 Mosm/kg 08/23/18 10:10 Lactic Acid 0.80 mmol/L (0.7-2.0) 08/23/18 10:10 7.7 mg/dL (3.5-7.6) H 08/23/18 09:05 Calcium 8.0 mg/dL (8.4-10.2) L 08/28/18 03:07 Phosphorus 3.70 mg/dL (2.5-4.5) 08/23/18 09:05 Magnesium 1.70 mg/dL (1.7-2.3) 08/23/18 09:05 0.30 mg/dL (0.1-1.2) 08/23/18 09:05 AST 19 units/L (5-40) 08/23/18 09:05 ALT 7 units/L (7-56) 08/23/18 09:05 93 units/L (35-129) 08/23/18 09:05 612 units/L (30-135) H 08/23/18 09:05 7.4 g/dL (6.3-8.2) 08/23/18 09:05 3.1 g/dL (3.9-5) L 08/23/18 09:05 0.7 % 08/23/18 09:05 Triglycerides 160 mg/dL (2-149) H 08/23/18 04:08 Cholesterol 325 mg/dL (50-199) H 08/23/18 04:08 248 mg/dL (50-130) H 08/23/18 04:08 60 mg/dL (40-59) H 08/23/18 04:08 5.41 % 08/23/18 04:08 0.08 ng/mL/h (0.25-5.82) L 08/23/18 10:10 3 ng/dL () 08/23/18 10:10 Aldosterone/Renin Dir 37.5 Ratio (0.9-28.9) H 08/23/18 10:10 Gracia (Yellow) 08/22/18 19:45 Cloudy (Clear) 08/22/18 19:45 6.0 (5.0-7.0) 08/22/18 19:45 Ur Specific [place] 1.024 (1.003-1.030) 08/22/18 19:45 >500 mg/dL (Negative) 08/22/18 19:45 150 mg/dL (Negative) 08/22/18 19:45 Neg mg/dL (Negative) 08/22/18 19:45 Sm (Negative) 08/22/18 19:45 Neg (Negative) 08/22/18 19:45 Neg (Negative) 08/22/18 19:45 < 2.0 mg/dL (<2.0) 08/22/18 19:45 Ur Leukocyte Esterase Tr (Negative) 08/22/18 19:45 42.0 /HPF (0.0-6.0) H 08/22/18 19:45 11.0 /HPF (0.0-6.0) 08/22/18 19:45 U Epithel Cells (Auto) 4.0 /HPF (0-13.0) 08/22/18 19:45 4+ /HPF (Negative) 08/22/18 19:45 Hyaline Casts 7 /LPF 08/22/18 19:45 1+ /HPF 08/22/18 19:45 Active Medications - Current Medications Current Medications: Generic Name Dose Route Start Last Admin Trade Name Freq PRN Reason Stop Dose Admin Acetaminophen 650 mg 08/22/18 23:50 08/24/18 22:55 Tylenol PO 650 mg Q4H PRN Administration Pain MILD(1-3)/Fever >100.5/CARTER Amlodipine Besylate 10 mg 08/24/18 10:00 08/28/18 09:21 Norvasc PO 10 mg DAILY NASH Administration Lipase/Protease/Amylase 1 each 08/23/18 15:27 Pancreaze 10,500 Unit FEEDTUBE PRN PRN For Clogged Feeding Tube Aspirin 81 mg 08/24/18 10:00 08/28/18 09:21 Baby Aspirin PO 81 mg DAILY NASH Administration Carvedilol 25 mg 08/25/18 22:00 08/28/18 09:22 Coreg PO 25 mg BID NASH Administration Clonidine HCl 0.3 mg 08/24/18 10:00 08/24/18 10:46 Catapres-Tts Patch TD 0.3 mg QWEEK NASH Administration Dextrose 50 ml 08/22/18 23:50 D50w (25gm) Syringe IV PRN PRN Hypoglycemia Fluoxetine HCl 40 mg 08/24/18 10:00 08/28/18 09:22 Prozac PO 40 mg QDAY NASH Administration Heparin Sodium (Porcine) 5,000 unit 08/23/18 10:00 08/28/18 09:20 Heparin SUB-Q 5,000 unit Q12HR NASH Administration Hydralazine HCl 10 mg 08/24/18 07:32 08/27/18 05:00 Apresoline IV 10 mg Q4HR PRN Administration HTN >155/90 Hydralazine HCl 100 mg 08/28/18 14:00 Apresoline PO Q8HR NASH Meropenem 1,000 mg/ Sodium 100 mls @ 100 mls/hr 08/25/18 16:00 08/28/18 05:14 Chloride IV 08/28/18 23:59 100 mls/hr Q12H NASH Administration Insulin Human Isoph/Insulin Regular 15 unit 08/25/18 12:00 08/28/18 09:17 Humulin 70/30 SUB-Q 15 unit BIDDIAB NASH Administration Insulin Human Lispro 0 unit 08/26/18 00:00 08/28/18 05:12 Humalog SUB-Q 3 unit Q6HR NASH Administration Protocol Levetiracetam 1,000 mg 08/27/18 10:00 08/28/18 09:20 Keppra PO 1,000 mg BID NASH Administration Lorazepam 1 mg 08/23/18 01:58 Ativan IV Q4H PRN Seizures Losartan Potassium 50 mg 08/27/18 12:06 08/28/18 09:22 Cozaar PO 50 mg QDAY NASH Administration Olanzapine 2.5 mg 08/24/18 10:00 08/28/18 09:20 Zyprexa PO 2.5 mg DAILY NASH Administration Ondansetron HCl 4 mg 08/22/18 23:50 Zofran IV Q8H PRN Nausea And Vomiting Simple Syrup 15 ml 08/23/18 15:27 Simple Syrup FEEDTUBE PRN PRN Hypoglycemia Simple Syrup 30 ml 08/23/18 15:27 Simple Syrup FEEDTUBE PRN PRN Hypoglycemia Sodium Bicarbonate 325 mg 08/23/18 15:27 Sodium Bicarbonate FEEDTUBE PRN PRN For Clogged Feeding Tube Sodium Chloride 10 ml 08/22/18 23:50 08/28/18 09:19 Sodium Chloride Flush Syringe 10 Ml IV 10 ml BID NASH Administration Sodium Chloride 10 ml 08/23/18 00:12 Sodium Chloride Flush Syringe 10 Ml IV PRN PRN LINE FLUSH Spironolactone 50 mg 08/25/18 10:00 08/28/18 09:21 Aldactone PO 50 mg QDAY NASH Administration Nutrition/Malnutrition Assess - Dietary Evaluation Nutrition/Malnutrition Findings: Nutrition Notes Start: 08/23/18 15:56 Freq: Status: Active Protocol: Document 08/25/18 14:24 RM (Rec: 08/25/18 14:38 RM [id number]) Nutrition Notes Initial or Follow up Reassessment Current Diagnosis Acute Kidney Injury,CKD(stage I-IV),Coronary Artery Disease, Diabetes,Hypertension, Hyperlipidemia Other Pertinent Diagnosis PVD, Hx endometrial CA, Seizures, AKA Current Diet Osmolite 1.5 at 45 ml/hr Labs/Tests K 3.9 BG 343 Pertinent Medications Reviewed Height 5 ft Weight 89.3 kg [place] Body Weight (kg) 45.45 BMI 38.4 Subjective/Other Information Pt moved from ICU to . Observed Osmolite infusing at goal rate. Burn Absent Trauma Absent #1 Nutrition Diagnosis Inadequate oral intake Diagnosis Progress(for reassessment Continues documentation) Is patient on ventilator? No Is Patient Ambulatory and/or Out of Bed No REE-([facility]-confined to bed) 1642.476 Kcal/Kg value to use for calculation 15 Approximate Energy Requirements Using 1340 kcal/Kg Calculation Used for Recommendations Kcal/kg Additional Notes Protein Needs: 54-67g (0.8-1g/ kg 67kg adjBW) Fluid Needs: 1 ml/kcal Nutrition Intervention Nutrition Support: Change to Glucerna 1.2 at 50 ml/hr Water flush of 100 mls q 4 hrs Kcal 1,440 Protein (gm) 72 Fluid (mL) 966 Goal #1 TF tolerance Goal #2 Meet at least 75% of calorie and protein needs via TF Anticipated Discharge Needs: Unable to determine at this time Follow-Up By: 08/29/18 Additional Comments Follow for TF tolerance, K lab
--- NOTE | 2018-08-28 13:54 | Progress Note ---
Assessment and Plan Cultures: Urine culture 08/22/2018 ESBL E coli. Assessment: 62 y/o female with history of diabetes, hypertension, seizure, CAD, PVD s/p AKA, endometrial cancer s/p hysterectomy, malnutrition admitted on 08/25/2018 due to prolonged seizures found to have a UTI: 1) Sepsis: Present on admission, manifested by fever, leukocytosis. Etiology most likely reactive from status epilecticus +/- ESBL E coli UTI. 2) ESBL E coli UTI: UA with 42 wbc, trace LE. Urine culture 08/22/2018 ESBL E coli. Renal US neg 3) CLINT: renally dosed all antibiotics 4) Status epilecticus: resolved Recommendations: - stop meropenem 1 gm IV q12 total D4 of 4 - contact isolation - monitor leukocytosis Will sign off thanks Mariya Weber MD Infectious Diseases Clinical Educator [facility], [place] [facility] ([facility]) M [phone] O [phone] Subjective Date of service: 08/28/18 Principal diagnosis: UTI Interval history: Patient feels better, no fever for 4 days. Diarrhea after kayexalate. Objective - Exam Narrative Exam: General appearance: alert in NAD follows commands Eyes: anicteric sclerae, moist conjunctivae; no lid-lag; PERRLA HENT: Atraumatic; oropharynx limted Neck: Trachea midline; supple, no thyromegaly or lymphadenopathy Lungs: CTA CV: RRR Abdomen: Soft, non-tender Extremities: left AKA Skin: Normal temperature, turgor and texture; no rash, ulcers or subcutaneous nodules Psych: no agitated. Neuro:alert - Constitutional Vitals: Vital Signs Temp Pulse Resp BP Pulse Ox 98.3 F 70 20 185/70 100 08/28/18 13:04 08/28/18 13:04 08/28/18 13:04 08/28/18 13:04 08/28/18 13:04 Temperature -Last 24 Hours Temperature 98.3 F Temperature 98.4 F Temperature 98.4 F Temperature 98.3 F - Labs CBC & Chem 7: 08/24/18 04:37 08/28/18 13:05 Labs: Abnormal lab results 08/23/18 08/27/18 08/27/18 Range/Units 10:10 18:43 23:17 Sodium (137-145) mmol/L Carbon Dioxide (22-30) mmol/L BUN (7-17) mg/dL Creatinine (0.7-1.2) mg/dL Glucose (65-100) mg/dL POC Glucose 246 H 51 L (70-105) Calcium (8.4-10.2) mg/dL Renin 0.08 L (0.25-5.82) ng/mL/h Aldosterone/Renin Dir 37.5 H (0.9-28.9) Ratio 08/27/18 08/28/18 08/28/18 Range/Units 23:51 03:07 05:10 Sodium 134 L (137-145) mmol/L Carbon Dioxide 21 L (22-30) mmol/L BUN 42 H (7-17) mg/dL Creatinine 2.1 H (0.7-1.2) mg/dL Glucose 129 H (65-100) mg/dL POC Glucose 58 L 170 H (70-105) Calcium 8.0 L (8.4-10.2) mg/dL Renin (0.25-5.82) ng/mL/h Aldosterone/Renin Dir (0.9-28.9) Ratio 08/28/18 Range/Units 13:35 Sodium (137-145) mmol/L Carbon Dioxide (22-30) mmol/L BUN (7-17) mg/dL Creatinine (0.7-1.2) mg/dL Glucose (65-100) mg/dL POC Glucose 163 H (70-105) Calcium (8.4-10.2) mg/dL Renin (0.25-5.82) ng/mL/h Aldosterone/Renin Dir (0.9-28.9) Ratio
[2018-08-29] MEDS: HumaLOG SUB-Q SCH ×4 (02:01→18:11)
[2018-08-29] MEDS: APRESOLINE IV PRN ×2 (06:06→22:02)
[2018-08-29] MEDS: APRESOLINE PO SCH ×3 (06:07→22:13)
[2018-08-29 08:11] LABS: Calcium 8.4 mg/dL (8.4-10.2)
[2018-08-29] MEDS: COREG PO SCH ×2 (10:25→22:13)
[2018-08-29] MEDS: KEPPRA PO SCH ×2 (10:25→22:06)
[2018-08-29] MEDS: NORVASC PO SCH (10:26)
[2018-08-29] MEDS: PROzac PO SCH (10:26)
[2018-08-29] MEDS: BABY ASPIRIN PO SCH (10:26)
[2018-08-29] MEDS: COZAAR PO SCH (10:28)
[2018-08-29] MEDS: ALDACTONE PO SCH (10:28)
[2018-08-29] MEDS: HEPARIN SUB-Q SCH ×2 (10:29→22:06)
[2018-08-29] MEDS: SODIUM CHLORIDE FLUSH SYRINGE 10 ML IV SCH ×2 (10:32→22:13)
--- NOTE | 2018-08-29 11:08 | Progress Note ---
Assessment and Plan - Patient Problems (1) Hypertensive emergency Current Visit: Yes Status: Acute Plan to address problem: History of HTN emergency Uncontrolled HTN - currently on amlodipine, Coreg , Hydralazine , clonidine patch, Losartan and spirinolactone (2) Acidosis Current Visit: No Status: Acute Plan to address problem: Acidosis : controlled. Continue to monitor. (3) Diastolic CHF Current Visit: No Status: Acute Qualifiers: Heart failure chronicity: acute on chronic Qualified Code(s): I50.33 - Acute on chronic diastolic (congestive) heart failure Plan to address problem: Diastolic CHF I reviewed Echocardiogram with EF : 40-45% with impaired disatolic relaxation Will need Low dose diuretics once renal function is stable if volume status appears hypervoluemic (4) Acute kidney injury superimposed on CKD Current Visit: No Status: Acute Plan to address problem: Acuter kidney injury superimposed on CKD baseline creatinine : 1.4mg/dl , December 2017 current creatinine : 1.7mg/dl - currently on Losartan and spirinolactone however renal function is improving - Avoid nephrotoxins if possible - I reviewed renal US results. - Strict input and output. Subjective Principal diagnosis: UTI Interval history: 62-year-old lady with uncontrolled hypertension and acute kidney injury nephrology following for same She denies any orthopnea PND Denies any fevers or chills Objective - Vital Signs Vital signs: Vital Signs - 12hr 08/28/18 08/28/18 08/29/18 23:13 23:14 05:15 Temperature 98.8 F Pulse Rate 75 Respiratory 20 Rate Blood Pressure 195/70 195/70 198/57 O2 Sat by Pulse 99 Oximetry 08/29/18 08/29/18 08/29/18 06:06 10:25 10:26 Temperature Pulse Rate 76 76 Respiratory Rate Blood Pressure 198/57 167/58 167/58 O2 Sat by Pulse Oximetry 08/29/18 10:28 Temperature Pulse Rate 76 Respiratory Rate Blood Pressure 167/58 O2 Sat by Pulse Oximetry - General Appearance General appearance: well-developed, well-nourished EENT: ATNC, PERRL, mucous membranes moist Neck: no JVD Respiratory: Present: Clear to Ascultation Cardiology: regular, S1S2 Gastrointestinal: normal, normoactive bowel sounds Integumentary: no rash Neurologic: alert and oriented x3, CN 3-12 intact Musculoskeletal: other (left leg amputation/ edema right leg. ) Psychiatric: mood/affect appropriate (I reviewed renal ultrasound with 9.7cm and 10.6cm without hydronephrosis. ) - Lab 08/24/18 04:37 08/29/18 06:48 Most recent lab results Calcium 8.4 mg/dL (8.4-10.2) 08/29/18 06:48 Phosphorus 3.70 mg/dL (2.5-4.5) 08/23/18 09:05 Magnesium 1.90 mg/dL (1.7-2.3) 08/28/18 13:05 - Imaging Chest x-ray: image reviewed, other Medications & Allergies - Medications Allergies/Adverse Reactions: Allergies No Known Allergies Allergy (Unverified 06/05/17 13:30) Home Medications: Home Medications Medication Instructions Recorded Confirmed Last Taken Type Aspirin 81 mg PO DAILY 11/14/17 08/22/18 Unknown History Megestrol Acetate 800 mg PO DAILY 11/14/17 08/22/18 Unknown History OLANZapine [Zyprexa] 2.5 mg PO DAILY 11/14/17 08/22/18 Unknown History FLUoxetine [PROzac] 40 mg PO QDAY #30 capsule 11/26/17 08/22/18 Unknown Rx Ferrous Sulfate [Ferrous Sulfate 300 mg PO QDAY #30 oral.liqd 11/26/17 08/22/18 Unknown Rx Oral Liq 300 Mg/5 Ml] Pantoprazole [Protonix TAB] 40 mg PO QDAY #30 tablet 11/26/17 08/22/18 Unknown Rx amLODIPine [Norvasc] 10 mg PO DAILY #30 tablet 11/26/17 08/22/18 Unknown Rx Carvedilol [Coreg] 25 mg PO BID tablet 12/06/17 08/22/18 Unknown Rx cloNIDine [Catapres] 0.1 mg PO Q8H tablet 12/06/17 08/22/18 Unknown Rx traMADol [Ultram 50 MG tab] 50 mg PO Q12HR PRN #20 tablet 12/06/17 08/22/18 Unknown Rx Acetaminophen 325 mg PO Q6H PRN 12/22/17 08/22/18 Unknown History Glucagon HCl 1 mg IM ONCE PRN 12/22/17 08/22/18 Unknown History Klor-Con 10 10 meq PO DAILY 12/22/17 08/22/18 Unknown History Lispro Insulin [HumaLOG] See Protocol SC ACHS 12/22/17 08/22/18 Unknown History Simethicone 80 mg PO Q8H PRN 12/22/17 08/22/18 Unknown History levETIRAcetam [Keppra ORAL LIQ] 750 mg PO BID 30 Days bottle 01/04/18 08/22/18 Unknown Rx Active Medications: Generic Name Dose Route Start Last Admin Trade Name Freq PRN Reason Stop Dose Admin Acetaminophen 650 mg 08/22/18 23:50 08/24/18 22:55 Tylenol PO 650 mg Q4H PRN Administration Pain MILD(1-3)/Fever >100.5/CARTER Amlodipine Besylate 10 mg 08/24/18 10:00 08/29/18 10:26 Norvasc PO 10 mg DAILY NASH Administration Lipase/Protease/Amylase 1 each 08/23/18 15:27 Pancreaze 10,500 Unit FEEDTUBE PRN PRN For Clogged Feeding Tube Aspirin 81 mg 08/24/18 10:00 08/29/18 10:26 Baby Aspirin PO 81 mg DAILY NASH Administration Carvedilol 25 mg 08/25/18 22:00 08/29/18 10:25 Coreg PO 25 mg BID NASH Administration Clonidine HCl 0.3 mg 08/24/18 10:00 08/24/18 10:46 Catapres-Tts Patch TD 0.3 mg QWEEK NASH Administration Dextrose 50 ml 08/22/18 23:50 D50w (25gm) Syringe IV PRN PRN Hypoglycemia Fluoxetine HCl 40 mg 08/24/18 10:00 08/29/18 10:26 Prozac PO 40 mg QDAY NASH Administration Heparin Sodium (Porcine) 5,000 unit 08/23/18 10:00 08/29/18 10:29 Heparin SUB-Q 5,000 unit Q12HR NASH Administration Hydralazine HCl 10 mg 08/24/18 07:32 08/29/18 06:06 Apresoline IV 10 mg Q4HR PRN Administration HTN >155/90 Hydralazine HCl 100 mg 08/28/18 14:00 08/29/18 06:07 Apresoline PO 100 mg Q8HR NASH Administration Insulin Human Isoph/Insulin Regular 15 unit 08/25/18 12:00 08/29/18 09:36 Humulin 70/30 SUB-Q Not Given BIDDIAB [facility] Insulin Human Lispro 0 unit 08/26/18 00:00 08/29/18 06:04 Humalog SUB-Q Not Given Q6HR [facility] Protocol Levetiracetam 1,000 mg 08/27/18 10:00 08/29/18 10:25 Keppra PO 1,000 mg BID NASH Administration Lorazepam 1 mg 08/23/18 01:58 Ativan IV Q4H PRN Seizures Losartan Potassium 50 mg 08/27/18 12:06 08/29/18 10:28 Cozaar PO 50 mg QDAY NASH Administration Olanzapine 2.5 mg 08/24/18 10:00 08/29/18 10:28 Zyprexa PO 2.5 mg DAILY NASH Administration Ondansetron HCl 4 mg 08/22/18 23:50 Zofran IV Q8H PRN Nausea And Vomiting Simple Syrup 15 ml 08/23/18 15:27 Simple Syrup FEEDTUBE PRN PRN Hypoglycemia Simple Syrup 30 ml 08/23/18 15:27 Simple Syrup FEEDTUBE PRN PRN Hypoglycemia Sodium Bicarbonate 325 mg 08/23/18 15:27 Sodium Bicarbonate FEEDTUBE PRN PRN For Clogged Feeding Tube Sodium Chloride 10 ml 08/22/18 23:50 08/29/18 10:32 Sodium Chloride Flush Syringe 10 Ml IV 10 ml BID NASH Administration Sodium Chloride 10 ml 08/23/18 00:12 Sodium Chloride Flush Syringe 10 Ml IV PRN PRN LINE FLUSH Spironolactone 50 mg 08/25/18 10:00 08/29/18 10:28 Aldactone PO 50 mg QDAY NASH Administration
--- NOTE | 2018-08-29 17:29 | XRay Report ---
CHEST 1 VIEW INDICATION / CLINICAL INFORMATION: adamaris. COMPARISON: None available. FINDINGS: SUPPORT DEVICES: None. HEART / MEDIASTINUM: Median sternotomy. Cardiac mediastinal silhouette is at the upper limit of arden l and there is pulmonary venous hypertension. LUNGS / PLEURA: No significant pulmonary or pleural abnormality. No pneumothorax. ADDITIONAL FINDINGS: No significant additional findings. IMPRESSION: 1. Mild cardiomegaly and pulmonary venous hypertension. Signer Name: Solomon Kelly MD Signed: 08/29/2018 5:24 PM Workstation Name: [id number]
--- NOTE | 2018-08-29 17:39 | Progress Note ---
Assessment and Plan Assessment and plan: 62-year-old female patient in group home resident was admitted through emergency room with witnessed seizures and status epilepticus Patient was also noted to have hypertensive emergency requiring Cardene drip, admitted and stabilized in ICU, transferred to medical floor. Patient was placed on antiepileptic medications, seizure precautions, evaluated by neurology Patient had UTI present on admission positive for ESBL, placed on contact isolation, evaluated by ID, received meropenem for total 4 days, patient's symptoms significantly improved, ID advised to continue contact isolation. Patient did not have any new episodes of seizures, is hemodynamically and clinically stable for discharge However isolation rooms are not available in the group home. Awaiting to return to group home when isolation room is available --Sepsis secondary to UTI /ESBL;present on admission received a total 4 days of Meropenem,per ID recommend to continue contact isolation --Metabolic encephalopathy; present on admission; resolved Multifactorial, sepsis, seizures, acute on chronic kidney disease --Hypertensive Emergency: Present on admission. Blood pressures are better controlled today s/p cardine drip, on amlodipine, Coreg, clonidine, losartan, hydralazine and spironolactone And when necessary hydralazine, --Status epilepticus: Seizure precautions, continue keppra to 1000mg bid Ativan when necessary, neurology evaluated the patient --CLINT on CKD 3: Vasomotor nephropathy Gentle hydration, monitor renal function, avoid nephrotoxins, creatinine level trending down Nephrology following --Hyperkalemia: corrected --Moderate to severe malnutrition: Nutrition supplements Supportive care, nutrition consult if needed --Severe debility; physical therapy occupational therapy --Insulin-dependent diabetes; Accu-Chek sliding scale coverage and ADA diet Insulin as needed,hemoglobin A1c 8.3 --History of left AKA: Supportive care --History of endometrial cancer status post hysterectomy,stable --History of major depression; continue current antidepression medications --Dyslipidemia; stable on lipid-lowering medicine, low-cholesterol diet --DVT Prophylaxis; Lovenox Plan of care reviewed with the patient and her nurse Patient is stable for discharge Discharge planning. Case management Awaiting to return to SNF when isolation room is available History Interval history: Patient seen and examined medical records reviewed Patient feels better no new complaints anxious to go home Vital signs noted Hospitalist Physical - Constitutional Vitals: Temp Pulse Resp BP Pulse Ox 98.7 F 77 20 158/68 99 08/29/18 13:15 08/29/18 13:55 08/29/18 13:15 08/29/18 13:55 08/29/18 05:15 General appearance: Present: no acute distress, well-nourished, obese - EENT Eyes: Present: PERRL, EOM intact - Neck Neck: Present: supple, normal ROM - Respiratory Respiratory effort: normal Respiratory: bilateral: diminished, negative: rales, rhonchi, wheezing - Cardiovascular Rhythm: regular Heart Sounds: Present: S1 & S2 - Extremities Extremities: no ischemia, abnormal (left AKA) - Abdominal General gastrointestinal: soft, non-tender, non-distended, normal bowel sounds - Integumentary Integumentary: Present: clear, warm - Psychiatric Psychiatric: appropriate mood/affect, cooperative - Neurologic Neurologic: no focal deficits, moves all extremities Results - Labs CBC & Chem 7: 08/24/18 04:37 08/29/18 06:48 Labs: Laboratory Last Values WBC TNR 08/24/18 04:37 RBC TNR 08/24/18 04:37 Hgb TNR 08/24/18 04:37 Hct TNR 08/24/18 04:37 MCV TNR 08/24/18 04:37 MCH TNR 08/24/18 04:37 MCHC TNR 08/24/18 04:37 RDW TNR 08/24/18 04:37 Plt Count TNR 08/24/18 04:37 Lymph % (Auto) Photocopying Equipment Mechanic 08/24/18 04:37 Moody % (Auto) Photocopying Equipment Mechanic 08/24/18 04:37 Eos % (Auto) Photocopying Equipment Mechanic 08/24/18 04:37 Baso % (Auto) Photocopying Equipment Mechanic 08/24/18 04:37 Lymph # Photocopying Equipment Mechanic 08/24/18 04:37 Moody # Photocopying Equipment Mechanic 08/24/18 04:37 Eos # Photocopying Equipment Mechanic 08/24/18 04:37 Baso # Photocopying Equipment Mechanic 08/24/18 04:37 Add Manual Diff Complete 08/23/18 09:05 Total Counted 100 08/23/18 09:05 Seg Neutrophils % Photocopying Equipment Mechanic 08/24/18 04:37 Seg Neuts % (Manual) 90.0 % (40.0-70.0) H 08/23/18 09:05 0 % 08/23/18 09:05 8.0 % (13.4-35.0) L 08/23/18 09:05 Reactive Lymphs % (Man) 0 % 08/23/18 09:05 2.0 % (0.0-7.3) 08/23/18 09:05 0 % (0.0-4.3) 08/23/18 09:05 0 % (0.0-1.8) 08/23/18 09:05 0 % 08/23/18 09:05 0 % 08/23/18 09:05 0 % 08/23/18 09:05 0 % 08/23/18 09:05 Nucleated RBC % Not Reportable 08/23/18 09:05 Seg Neutrophils # Photocopying Equipment Mechanic 08/24/18 04:37 Seg Neutrophils # Man 17.9 K/mm3 (1.8-7.7) H 08/23/18 09:05 Band Neutrophils # 0.0 K/mm3 08/23/18 09:05 1.6 K/mm3 (1.2-5.4) 08/23/18 09:05 Abs React Lymphs (Man) 0.0 K/mm3 08/23/18 09:05 0.4 K/mm3 (0.0-0.8) 08/23/18 09:05 0.0 K/mm3 (0.0-0.4) 08/23/18 09:05 0.0 K/mm3 (0.0-0.1) 08/23/18 09:05 0.0 K/mm3 08/23/18 09:05 0.0 K/mm3 08/23/18 09:05 0.0 K/mm3 08/23/18 09:05 Blast Cells # 0.0 K/mm3 08/23/18 09:05 WBC Morphology Not Reportable 08/23/18 09:05 Hypersegmented Neuts Not Reportable 08/23/18 09:05 Hyposegmented Neuts Not Reportable 08/23/18 09:05 Hypogranular Neuts Not Reportable 08/23/18 09:05 Not Reportable 08/23/18 09:05 Not Reportable 08/23/18 09:05 Not Reportable 08/23/18 09:05 Not Reportable 08/23/18 09:05 Not Reportable 08/23/18 09:05 Not Reportable 08/23/18 09:05 Consistent w auto 08/23/18 09:05 Not Reportable 08/23/18 09:05 Plt Clumps, EDTA Not Reportable 08/23/18 09:05 Not Reportable 08/23/18 09:05 Not Reportable 08/23/18 09:05 Not Reportable 08/23/18 09:05 Plt Morphology Comment Not Reportable 08/23/18 09:05 RBC Morphology Normal 08/23/18 09:05 Dimorphic RBCs Not Reportable 08/23/18 09:05 Not Reportable 08/23/18 09:05 Not Reportable 08/23/18 09:05 Not Reportable 08/23/18 09:05 Not Reportable 08/23/18 09:05 Not Reportable 08/23/18 09:05 Not Reportable 08/23/18 09:05 Not Reportable 08/23/18 09:05 Not Reportable 08/23/18 09:05 Not Reportable 08/23/18 09:05 Not Reportable 08/23/18 09:05 Not Reportable 08/23/18 09:05 Not Reportable 08/23/18 09:05 Not Reportable 08/23/18 09:05 Not Reportable 08/23/18 09:05 Not Reportable 08/23/18 09:05 Not Reportable 08/23/18 09:05 Not Reportable 08/23/18 09:05 Not Reportable 08/23/18 09:05 Not Reportable 08/23/18 09:05 Acanthocytes (Spur) Not Reportable 08/23/18 09:05 Rouleaux Not Reportable 08/23/18 09:05 Not Reportable 08/23/18 09:05 Not Reportable 08/23/18 09:05 Not Reportable 08/23/18 09:05 Not Reportable 08/23/18 09:05 Hem Pathologist Commnt No 08/23/18 09:05 Sodium 141 mmol/L (137-145) D 08/29/18 06:48 Potassium 4.3 mmol/L (3.6-5.0) 08/29/18 06:48 Chloride 105.5 mmol/L (98-107) 08/29/18 06:48 Carbon Dioxide 24 mmol/L (22-30) 08/29/18 06:48 16 mmol/L 08/29/18 06:48 BUN 33 mg/dL (7-17) H 08/29/18 06:48 1.7 mg/dL (0.7-1.2) H 08/29/18 06:48 Estimated GFR 37 ml/min 08/29/18 06:48 19 % 08/29/18 06:48 Glucose 107 mg/dL (65-100) H 08/29/18 06:48 POC Glucose 188 (70-105) H 08/29/18 16:56 8.3 % (4-6) H 08/23/18 01:03 313 Mosm/kg 08/23/18 10:10 Lactic Acid 0.80 mmol/L (0.7-2.0) 08/23/18 10:10 7.7 mg/dL (3.5-7.6) H 08/23/18 09:05 Calcium 8.4 mg/dL (8.4-10.2) 08/29/18 06:48 Phosphorus 3.70 mg/dL (2.5-4.5) 08/23/18 09:05 Magnesium 1.90 mg/dL (1.7-2.3) 08/28/18 13:05 0.30 mg/dL (0.1-1.2) 08/23/18 09:05 AST 19 units/L (5-40) 08/23/18 09:05 ALT 7 units/L (7-56) 08/23/18 09:05 93 units/L (35-129) 08/23/18 09:05 612 units/L (30-135) H 08/23/18 09:05 7.4 g/dL (6.3-8.2) 08/23/18 09:05 3.1 g/dL (3.9-5) L 08/23/18 09:05 0.7 % 08/23/18 09:05 Triglycerides 160 mg/dL (2-149) H 08/23/18 04:08 Cholesterol 325 mg/dL (50-199) H 08/23/18 04:08 248 mg/dL (50-130) H 08/23/18 04:08 60 mg/dL (40-59) H 08/23/18 04:08 5.41 % 08/23/18 04:08 0.08 ng/mL/h (0.25-5.82) L 08/23/18 10:10 3 ng/dL () 08/23/18 10:10 Aldosterone/Renin Dir 37.5 Ratio (0.9-28.9) H 08/23/18 10:10 Gracia (Yellow) 08/22/18 19:45 Cloudy (Clear) 08/22/18 19:45 6.0 (5.0-7.0) 08/22/18 19:45 Ur Specific [place] 1.024 (1.003-1.030) 08/22/18 19:45 >500 mg/dL (Negative) 08/22/18 19:45 150 mg/dL (Negative) 08/22/18 19:45 Neg mg/dL (Negative) 08/22/18 19:45 Sm (Negative) 08/22/18 19:45 Neg (Negative) 08/22/18 19:45 Neg (Negative) 08/22/18 19:45 < 2.0 mg/dL (<2.0) 08/22/18 19:45 Ur Leukocyte Esterase Tr (Negative) 08/22/18 19:45 42.0 /HPF (0.0-6.0) H 08/22/18 19:45 11.0 /HPF (0.0-6.0) 08/22/18 19:45 U Epithel Cells (Auto) 4.0 /HPF (0-13.0) 08/22/18 19:45 4+ /HPF (Negative) 08/22/18 19:45 Hyaline Casts 7 /LPF 08/22/18 19:45 1+ /HPF 08/22/18 19:45 Active Medications - Current Medications Current Medications: Generic Name Dose Route Start Last Admin Trade Name Freq PRN Reason Stop Dose Admin Acetaminophen 650 mg 08/22/18 23:50 08/24/18 22:55 Tylenol PO 650 mg Q4H PRN Administration Pain MILD(1-3)/Fever >100.5/CARTER Amlodipine Besylate 10 mg 08/24/18 10:00 08/29/18 10:26 Norvasc PO 10 mg DAILY NASH Administration Lipase/Protease/Amylase 1 each 08/23/18 15:[address] 10,500 Unit FEEDTUBE PRN PRN For Clogged Feeding Tube Aspirin 81 mg 08/24/18 10:00 08/29/18 10:26 Baby Aspirin PO 81 mg DAILY NASH Administration Carvedilol 25 mg 08/25/18 22:00 08/29/18 10:25 Coreg PO 25 mg BID NASH Administration Clonidine HCl 0.3 mg 08/24/18 10:00 08/24/18 10:46 Catapres-Tts Patch TD 0.3 mg QWEEK NASH Administration Dextrose 50 ml 08/22/18 23:50 D50w (25gm) Syringe IV PRN PRN Hypoglycemia Fluoxetine HCl 40 mg 08/24/18 10:00 08/29/18 10:26 Prozac PO 40 mg QDAY NASH Administration Heparin Sodium (Porcine) 5,000 unit 08/23/18 10:00 08/29/18 10:29 Heparin SUB-Q 5,000 unit Q12HR NASH Administration Hydralazine HCl 10 mg 08/24/18 07:32 08/29/18 06:06 Apresoline IV 10 mg Q4HR PRN Administration HTN >155/90 Hydralazine HCl 100 mg 08/28/18 14:00 08/29/18 13:55 Apresoline PO 100 mg Q8HR NASH Administration Insulin Human Isoph/Insulin Regular 15 unit 08/25/18 12:00 08/29/18 09:36 Humulin 70/30 SUB-Q Not Given BIDDIAB NASH Insulin Human Lispro 0 unit 08/26/18 00:00 08/29/18 13:50 Humalog SUB-Q 4 unit Q6HR NASH Administration Protocol Levetiracetam 1,000 mg 08/27/18 10:00 08/29/18 10:25 Keppra PO 1,000 mg BID NASH Administration Lorazepam 1 mg 08/23/18 01:58 Ativan IV Q4H PRN Seizures Losartan Potassium 50 mg 08/27/18 12:06 08/29/18 10:28 Cozaar PO 50 mg QDAY NASH Administration Olanzapine 2.5 mg 08/24/18 10:00 08/29/18 10:28 Zyprexa PO 2.5 mg DAILY NASH Administration Ondansetron HCl 4 mg 08/22/18 23:50 Zofran IV Q8H PRN Nausea And Vomiting Simple Syrup 15 ml 08/23/18 15:27 Simple Syrup FEEDTUBE PRN PRN Hypoglycemia Simple Syrup 30 ml 08/23/18 15:27 Simple Syrup FEEDTUBE PRN PRN Hypoglycemia Sodium Bicarbonate 325 mg 08/23/18 15:27 Sodium Bicarbonate FEEDTUBE PRN PRN For Clogged Feeding Tube Sodium Chloride 10 ml 08/22/18 23:50 08/29/18 10:32 Sodium Chloride Flush Syringe 10 Ml IV 10 ml BID NASH Administration Sodium Chloride 10 ml 08/23/18 00:12 Sodium Chloride Flush Syringe 10 Ml IV PRN PRN LINE FLUSH Spironolactone 50 mg 08/25/18 10:00 08/29/18 10:28 Aldactone PO 50 mg QDAY NASH Administration Nutrition/Malnutrition Assess - Dietary Evaluation Nutrition/Malnutrition Findings: Nutrition Notes Start: 08/23/18 15:56 Freq: Status: Active Protocol: Document 08/29/18 16:28 RM (Rec: 08/29/18 16:32 RM [id number]) Nutrition Notes Initial or Follow up Reassessment Current Diagnosis Acute Kidney Injury,CKD(stage I-IV),Coronary Artery Disease, Diabetes,Sepsis,Hypertension, Hyperlipidemia Other Pertinent Diagnosis PVD, Hx endometrial CA, Seizures, AKA Current Diet [facility] soft Labs/Tests K 4.3 A1c 8.3 BG 105 Pertinent Medications Reviewed Height 5 ft Weight 60.4 kg [place] Body Weight (kg) 45.45 BMI 25.9 Subjective/Other Information TF D/C'd. Diet advanced to [facility] soft. Pt asleep at time of visit. Noted breakfast at bedside w/bites eaten. Percent of energy/protein needs met: 0%/0% Burn Absent Trauma Absent #1 Nutrition Diagnosis Inadequate oral intake Diagnosis Progress(for reassessment Continues documentation) Is patient on ventilator? No Is Patient Ambulatory and/or Out of Bed No REE-([place] [facility]-confined to bed) 1296.024 Kcal/Kg value to use for calculation 15 Approximate Energy Requirements Using 906 kcal/Kg Calculation Used for Recommendations Kcal/kg Additional Notes Protein Needs: 54-67g (0.8-1g/ kg 67kg adjBW) Fluid Needs: 1 ml/kcal Nutrition Intervention Change Diet Order: Cardiac/Consistent CHO Nutrition Support: D/C Add Supplement/Snack (indicate name/kcal Glucerna 1 daily /protein ) Provides kCal: 220 Provides Protein (gm) 10 Goal #1 Meet at least 75% of calorie and protein needs via PO and ONS intakes Anticipated Discharge Needs: Unable to determine at this time Follow-Up By: 08/31/18 Additional Comments Follow for PO and ONS intakes
[2018-08-30] MEDS: HumaLOG SUB-Q SCH ×4 (01:14→18:20)
[2018-08-30 05:53] LABS: Hematocrit 28.5 % (30.3-42.9); Hemoglobin 9.2 gm/dl (10.1-14.3); Mean Corpuscular HGB Conc 32 % (30-34); Mean Corpuscular Volume 86 fl (79-97); Platelet Count 332 K/mm3 (140-440); Red Blood Count 3.33 M/mm3 (3.65-5.03); Red Cell Distribution Width 15.9 % (13.2-15.2)
[2018-08-30 06:19] LABS: Calcium 8.6 mg/dL (8.4-10.2)
[2018-08-30] MEDS: APRESOLINE PO SCH ×3 (06:25→22:52)
[2018-08-30 09:00] LABS: Total Cells Counted 100
[2018-08-30 09:05] LABS: Band Neutrophils # (Manual) 0.2 K/mm3; Basophils % (Manual) 0 % (0.0-1.8); Macrocytosis Few; Platelet Estimate Consistent w Auto
--- NOTE | 2018-08-30 11:16 | Progress Note ---
Assessment and Plan Assessment and plan: 62-year-old female patient in [facility] resident was admitted through emergency room with witnessed seizures and status epilepticus Patient was also noted to have hypertensive emergency requiring Cardene drip, admitted and stabilized in ICU, transferred to medical floor. Patient was placed on antiepileptic medications, seizure precautions, evaluated by neurology Patient had UTI present on admission positive for ESBL, placed on contact isolation, evaluated by ID, received meropenem for total 4 days, patient's symptoms significantly improved, ID advised to continue contact isolation. Patient did not have any new episodes of seizures, is hemodynamically and clinically stable for discharge However isolation rooms are not available in the penitentiary. Awaiting to return to penitentiary when isolation room is available --Sepsis secondary to UTI /ESBL;present on admission Completed total 4 days of Meropenem,per ID continue contact isolation, awaiting isolation bed at SNF --Metabolic encephalopathy; present on admission; resolved Multifactorial, sepsis, seizures, acute on chronic kidney disease --Hypertensive Emergency: Present on admission. Blood pressures are better controlled today s/p cardine drip, on amlodipine, Coreg, clonidine, losartan, hydralazine and spi ronolactone And when necessary hydralazine, --Status epilepticus: Seizure precautions, continue keppra to 1000mg bid Ativan when necessary, neurology evaluated the patient --CLINT on CKD 3: Vasomotor nephropathy Gentle hydration, monitor renal function, avoid nephrotoxins, creatinine level trending down Nephrology following --Hyperkalemia: corrected --Moderate to severe malnutrition: Nutrition supplements Supportive care, nutrition consult if needed --Severe debility; physical therapy occupational therapy --Insulin-dependent diabetes; Accu-Chek sliding scale coverage and ADA diet Insulin as needed,hemoglobin A1c 8.3 --History of left AKA: Supportive care --History of endometrial cancer status post hysterectomy,stable --History of major depression; continue current antidepression medications --Dyslipidemia; stable on lipid-lowering medicine, low-cholesterol diet --DVT Prophylaxis; Lovenox Plan of care reviewed with the patient and her nurse Discharge planning. Case management Awaiting to return to SNF when isolation room is available Patient is medically stable for discharge History Interval history: Patient is comfortable cheerful Anxious to be discharged No new complaints. Patient contact isolation Awaiting SNF placement with isolated bed Vital signs noted Hospitalist Physical - Constitutional Vitals: Temp Pulse Resp BP Pulse Ox 99.2 F 75 18 139/45 96 08/30/18 06:22 08/30/18 06:22 08/30/18 06:22 08/30/18 06:25 08/30/18 06:22 General appearance: Present: no acute distress, well-nourished, obese - EENT Eyes: Present: PERRL, EOM intact - Neck Neck: Present: supple, normal ROM - Respiratory Respiratory effort: normal Respiratory: bilateral: diminished, negative: rales, rhonchi, wheezing - Cardiovascular Rhythm: regular Heart Sounds: Present: S1 & S2 - Extremities Extremities: no ischemia, No edema, abnormal (right AKA) - Abdominal General gastrointestinal: soft, non-tender, non-distended, normal bowel sounds - Integumentary Integumentary: Present: clear, warm - Psychiatric Psychiatric: appropriate mood/affect, cooperative - Neurologic Neurologic: moves all extremities Results - Labs CBC & Chem 7: 08/30/18 05:24 08/30/18 05:24 Labs: Laboratory Last Values WBC 8.9 K/mm3 (4.5-11.0) 08/30/18 05:24 RBC 3.33 M/mm3 (3.65-5.03) L 08/30/18 05:24 Hgb 9.2 gm/dl (10.1-14.3) L 08/30/18 05:24 Hct 28.5 % (30.3-42.9) L 08/30/18 05:24 MCV 86 fl (79-97) 08/30/18 05:24 MCH 28 pg (28-32) 08/30/18 05:24 MCHC 32 % (30-34) 08/30/18 05:24 RDW 15.9 % (13.2-15.2) H 08/30/18 05:24 Plt Count 332 K/mm3 (140-440) 08/30/18 05:24 Lymph % (Auto) Returned Case Inspector 08/24/18 04:37 [place] % (Auto) Returned Case Inspector 08/24/18 04:37 Eos % (Auto) Returned Case Inspector 08/24/18 04:37 Baso % (Auto) Returned Case Inspector 08/24/18 04:37 Lymph # Returned Case Inspector 08/24/18 04:37 [place] # Returned Case Inspector 08/24/18 04:37 Eos # Returned Case Inspector 08/24/18 04:37 Baso # Returned Case Inspector 08/24/18 04:37 Add Manual Diff Complete 08/30/18 05:24 Total Counted 100 08/30/18 05:24 Seg Neutrophils % Returned Case Inspector 08/24/18 04:37 Seg Neuts % (Manual) 69.0 % (40.0-70.0) 08/30/18 05:24 2.0 % 08/30/18 05:24 14.0 % (13.4-35.0) 08/30/18 05:24 Reactive Lymphs % (Man) 0 % 08/30/18 05:24 13.0 % (0.0-7.3) H 08/30/18 05:24 2.0 % (0.0-4.3) 08/30/18 05:24 0 % (0.0-1.8) 08/30/18 05:24 0 % 08/30/18 05:24 0 % 08/30/18 05:24 0 % 08/30/18 05:24 0 % 08/30/18 05:24 Nucleated RBC % Not Reportable 08/30/18 05:24 Seg Neutrophils # Returned Case Inspector 08/24/18 04:37 Seg Neutrophils # Man 6.1 K/mm3 (1.8-7.7) 08/30/18 05:24 Band Neutrophils # 0.2 K/mm3 08/30/18 05:24 1.2 K/mm3 (1.2-5.4) 08/30/18 05:24 Abs React Lymphs (Man) 0.0 K/mm3 08/30/18 05:24 1.2 K/mm3 (0.0-0.8) H 08/30/18 05:24 0.2 K/mm3 (0.0-0.4) 08/30/18 05:24 0.0 K/mm3 (0.0-0.1) 08/30/18 05:24 0.0 K/mm3 08/30/18 05:24 0.0 K/mm3 08/30/18 05:24 0.0 K/mm3 08/30/18 05:24 Blast Cells # 0.0 K/mm3 08/30/18 05:24 WBC Morphology Not Reportable 08/30/18 05:24 Hypersegmented Neuts Not Reportable 08/30/18 05:24 Hyposegmented Neuts Not Reportable 08/30/18 05:24 Hypogranular Neuts Not Reportable 08/30/18 05:24 Not Reportable 08/30/18 05:24 Not Reportable 08/30/18 05:24 Not Reportable 08/30/18 05:24 Not Reportable 08/30/18 05:24 Not Reportable 08/30/18 05:24 Not Reportable 08/30/18 05:24 Consistent w auto 08/30/18 05:24 Not Reportable 08/30/18 05:24 Plt Clumps, EDTA Not Reportable 08/30/18 05:24 Not Reportable 08/30/18 05:24 Not Reportable 08/30/18 05:24 Not Reportable 08/30/18 05:24 Plt Morphology Comment Not Reportable 08/30/18 05:24 RBC Morphology Not Reportable 08/30/18 05:24 Dimorphic RBCs Not Reportable 08/30/18 05:24 Not Reportable 08/30/18 05:24 Not Reportable 08/30/18 05:24 Not Reportable 08/30/18 05:24 Not Reportable 08/30/18 05:24 Not Reportable 08/30/18 05:24 Few 08/30/18 05:24 Not Reportable 08/30/18 05:24 Not Reportable 08/30/18 05:24 Not Reportable 08/30/18 05:24 Not Reportable 08/30/18 05:24 Not Reportable 08/30/18 05:24 Not Reportable 08/30/18 05:24 Not Reportable 08/30/18 05:24 Not Reportable 08/30/18 05:24 Not Reportable 08/30/18 05:24 Not Reportable 08/30/18 05:24 Not Reportable 08/30/18 05:24 Not Reportable 08/30/18 05:24 Not Reportable 08/30/18 05:24 Acanthocytes (Spur) Not Reportable 08/30/18 05:24 Rouleaux Not Reportable 08/30/18 05:24 Not Reportable 08/30/18 05:24 Not Reportable 08/30/18 05:24 Not Reportable 08/30/18 05:24 Not Reportable 08/30/18 05:24 Hem Pathologist Commnt No 08/30/18 05:24 Sodium 141 mmol/L (137-145) 08/30/18 05:24 Potassium 4.3 mmol/L (3.6-5.0) 08/30/18 05:24 Chloride 105.2 mmol/L (98-107) 08/30/18 05:24 Carbon Dioxide 24 mmol/L (22-30) 08/30/18 05:24 16 mmol/L 08/30/18 05:24 BUN 26 mg/dL (7-17) H 08/30/18 05:24 1.8 mg/dL (0.7-1.2) H 08/30/18 05:24 Estimated GFR 34 ml/min 08/30/18 05:24 14 % 08/30/18 05:24 Glucose 121 mg/dL (65-100) H 08/30/18 05:24 POC Glucose 128 (70-105) H 08/30/18 06:24 8.3 % (4-6) H 08/23/18 01:03 313 Mosm/kg 08/23/18 10:10 Lactic Acid 0.80 mmol/L (0.7-2.0) 08/23/18 10:10 7.7 mg/dL (3.5-7.6) H 08/23/18 09:05 Calcium 8.6 mg/dL (8.4-10.2) 08/30/18 05:24 Phosphorus 3.70 mg/dL (2.5-4.5) 08/23/18 09:05 Magnesium 1.90 mg/dL (1.7-2.3) 08/28/18 13:05 0.30 mg/dL (0.1-1.2) 08/23/18 09:05 AST 19 units/L (5-40) 08/23/18 09:05 ALT 7 units/L (7-56) 08/23/18 09:05 93 units/L (35-129) 08/23/18 09:05 612 units/L (30-135) H 08/23/18 09:05 7.4 g/dL (6.3-8.2) 08/23/18 09:05 3.1 g/dL (3.9-5) L 08/23/18 09:05 0.7 % 08/23/18 09:05 Triglycerides 160 mg/dL (2-149) H 08/23/18 04:08 Cholesterol 325 mg/dL (50-199) H 08/23/18 04:08 248 mg/dL (50-130) H 08/23/18 04:08 60 mg/dL (40-59) H 08/23/18 04:08 5.41 % 08/23/18 04:08 0.08 ng/mL/h (0.25-5.82) L 08/23/18 10:10 3 ng/dL () 08/23/18 10:10 Aldosterone/Renin Dir 37.5 Ratio (0.9-28.9) H 08/23/18 10:10 [place] (Yellow) 08/22/18 19:45 Cloudy (Clear) 08/22/18 19:45 6.0 (5.0-7.0) 08/22/18 19:45 Ur Specific [place] 1.024 (1.003-1.030) 08/22/18 19:45 >500 mg/dL (Negative) 08/22/18 19:45 150 mg/dL (Negative) 08/22/18 19:45 Neg mg/dL (Negative) 08/22/18 19:45 Sm (Negative) 08/22/18 19:45 Neg (Negative) 08/22/18 19:45 Neg (Negative) 08/22/18 19:45 < 2.0 mg/dL (<2.0) 08/22/18 19:45 Ur Leukocyte Esterase Tr (Negative) 08/22/18 19:45 42.0 /HPF (0.0-6.0) H 08/22/18 19:45 11.0 /HPF (0.0-6.0) 08/22/18 19:45 U Epithel Cells (Auto) 4.0 /HPF (0-13.0) 08/22/18 19:45 4+ /HPF (Negative) 08/22/18 19:45 Hyaline Casts 7 /LPF 08/22/18 19:45 1+ /HPF 08/22/18 19:45 Active Medications - Current Medications Current Medications: Generic Name Dose Route Start Last Admin Trade Name Freq PRN Reason Stop Dose Admin Acetaminophen 650 mg 08/22/18 23:50 08/24/18 22:55 Tylenol PO 650 mg Q4H PRN Administration Pain MILD(1-3)/Fever >100.5/CARTER Amlodipine Besylate 10 mg 08/24/18 10:00 08/29/18 10:26 Norvasc PO 10 mg DAILY NASH Administration Lipase/Protease/Amylase 1 each 08/23/18 15:27 Pancreaze 10,500 Unit FEEDTUBE PRN PRN For Clogged Feeding Tube Aspirin 81 mg 08/24/18 10:00 08/29/18 10:26 Baby Aspirin PO 81 mg DAILY NASH Administration Carvedilol 25 mg 08/25/18 22:00 08/29/18 22:13 Coreg PO 25 mg BID NASH Administration Clonidine HCl 0.3 mg 08/24/18 10:00 08/24/18 10:46 Catapres-Tts Patch TD 0.3 mg QWEEK NASH Administration Dextrose 50 ml 08/22/18 23:50 D50w (25gm) Syringe IV PRN PRN Hypoglycemia Fluoxetine HCl 40 mg 08/24/18 10:00 08/29/18 10:26 Prozac PO 40 mg QDAY NASH Administration Heparin Sodium (Porcine) 5,000 unit 08/23/18 10:00 08/29/18 22:06 Heparin SUB-Q 5,000 unit Q12HR NASH Administration Hydralazine HCl 10 mg 08/24/18 07:32 08/29/18 22:02 Apresoline IV 10 mg Q4HR PRN Administration HTN >155/90 Hydralazine HCl 100 mg 08/28/18 14:00 08/30/18 06:25 Apresoline PO 100 mg Q8HR NASH Administration Insulin Human Isoph/Insulin Regular 15 unit 08/25/18 12:00 08/29/18 18:13 Humulin 70/30 SUB-Q 15 unit BIDDIAB NASH Administration Insulin Human Lispro 0 unit 08/26/18 00:00 08/30/18 06:22 Humalog SUB-Q Not Given Q6HR [facility] Protocol Levetiracetam 1,000 mg 08/27/18 10:00 08/29/18 22:06 Keppra PO 1,000 mg BID NASH Administration Lorazepam 1 mg 08/23/18 01:58 Ativan IV Q4H PRN Seizures Losartan Potassium 50 mg 08/27/18 12:06 08/29/18 10:28 Cozaar PO 50 mg QDAY NASH Administration Olanzapine 2.5 mg 08/24/18 10:00 08/29/18 10:28 Zyprexa PO 2.5 mg DAILY NASH Administration Ondansetron HCl 4 mg 08/22/18 23:50 Zofran IV Q8H PRN Nausea And Vomiting Simple Syrup 15 ml 08/23/18 15:27 Simple Syrup FEEDTUBE PRN PRN Hypoglycemia Simple Syrup 30 ml 08/23/18 15:27 Simple Syrup FEEDTUBE PRN PRN Hypoglycemia Sodium Bicarbonate 325 mg 08/23/18 15:27 Sodium Bicarbonate FEEDTUBE PRN PRN For Clogged Feeding Tube Sodium Chloride 10 ml 08/22/18 23:50 08/29/18 22:13 Sodium Chloride Flush Syringe 10 Ml IV 10 ml BID NASH Administration Sodium Chloride 10 ml 08/23/18 00:12 Sodium Chloride Flush Syringe 10 Ml IV PRN PRN LINE FLUSH Spironolactone 50 mg 08/25/18 10:00 08/29/18 10:28 Aldactone PO 50 mg QDAY NASH Administration Nutrition/Malnutrition Assess - Dietary Evaluation Nutrition/Malnutrition Findings: Nutrition Notes Start: 08/23/18 15:56 Freq: Status: Active Protocol: Document 08/29/18 16:28 RM (Rec: 08/29/18 16:32 [id number]) Nutrition Notes Initial or Follow up Reassessment Current Diagnosis Acute Kidney Injury,CKD(stage I-IV),Coronary Artery Disease, Diabetes,Sepsis,Hypertension, Hyperlipidemia Other Pertinent Diagnosis PVD, Hx endometrial CA, Seizures, AKA Current Diet [facility] soft Labs/Tests K 4.3 A1c 8.3 BG 105 Pertinent Medications Reviewed Height 5 ft Weight 60.4 kg [place] Body Weight (kg) 45.45 BMI 25.9 Subjective/Other Information TF D/C'd. Diet advanced to [facility] soft. Pt asleep at time of visit. Noted breakfast at bedside w/bites eaten. Percent of energy/protein needs met: 0%/0% Burn Absent Trauma Absent #1 Nutrition Diagnosis Inadequate oral intake Diagnosis Progress(for reassessment Continues documentation) Is patient on ventilator? No Is Patient Ambulatory and/or Out of Bed No REE-([place]-St. Jeor-confined to bed) 1296.024 Kcal/Kg value to use for calculation 15 Approximate Energy Requirements Using 906 kcal/Kg Calculation Used for Recommendations Kcal/kg Additional Notes Protein Needs: 54-67g (0.8-1g/ kg 67kg adjBW) Fluid Needs: 1 ml/kcal Nutrition Intervention Change Diet Order: Cardiac/Consistent CHO Nutrition Support: D/C Add Supplement/Snack (indicate name/kcal Glucerna 1 daily /protein ) Provides kCal: 220 Provides Protein (gm) 10 Goal #1 Meet at least 75% of calorie and protein needs via PO and ONS intakes Anticipated Discharge Needs: Unable to determine at this time Follow-Up By: 08/31/18 Additional Comments Follow for PO and ONS intakes
[2018-08-30] MEDS: COREG PO SCH ×2 (12:40→22:51)
[2018-08-30] MEDS: ALDACTONE PO SCH (12:40)
[2018-08-30] MEDS: KEPPRA PO SCH ×2 (12:40→22:51)
[2018-08-30] MEDS: NORVASC PO SCH (12:40)
[2018-08-30] MEDS: PROzac PO SCH (12:41)
[2018-08-30] MEDS: COZAAR PO SCH (12:41)
[2018-08-30] MEDS: BABY ASPIRIN PO SCH (12:41)
[2018-08-30] MEDS: HEPARIN SUB-Q SCH ×2 (12:41→22:54)
--- NOTE | 2018-08-30 14:43 | Progress Note ---
Assessment and Plan - Patient Problems (1) Acute kidney injury superimposed on CKD Current Visit: No Status: Acute Plan to address problem: Acuter kidney injury superimposed on CKD baseline creatinine : 1.4mg/dl , December 2017 current creatinine : 1.8mg/dl - currently on Losartan and spirinolactone however renal function is improving - Avoid nephrotoxins if possible - I reviewed renal US results with normal-appearing kidneys without hydroneph rosis or masses. This appears to be name baseline renal function patient will reevaluate in the a.m. - Strict input and output. (2) Hypertensive emergency Current Visit: Yes Status: Acute Plan to address problem: History of HTN emergency Uncontrolled HTN now improving - currently on amlodipine, Coreg , Hydralazine , clonidine patch, Losartan and spirinolactone (3) Acidosis Current Visit: No Status: Acute Plan to address problem: Acidosis : controlled. Continue to monitor. (4) Diastolic CHF Current Visit: No Status: Acute Qualifiers: Qualified Code(s): I50.33 - Acute on chronic diastolic (congestive) heart failure Plan to address problem: Diastolic CHF I reviewed Echocardiogram with EF : 40-45% with impaired disatolic relaxation Will need Low dose diuretics once renal function is stable if volume status appears hypervoluemic Subjective Principal diagnosis: UTI Interval history: 62-year-old lady with uncontrolled hypertension and acute kidney injury nephrology following for same She was sent today remains very drowsy She denies any orthopnea PND Denies any fevers or chills Objective - Vital Signs Vital signs: Vital Signs - 12hr 08/30/18 08/30/18 08/30/18 06:15 06:22 06:25 Temperature 99.2 F Pulse Rate 71 75 Respiratory 18 Rate Blood Pressure 139/45 139/45 O2 Sat by Pulse 95 96 Oximetry - General Appearance General appearance: well-developed, well-nourished EENT: ATNC, PERRL, mucous membranes moist Neck: no JVD Respiratory: Present: Clear to Ascultation Cardiology: regular, S1S2 Gastrointestinal: normal, normoactive bowel sounds Integumentary: no rash Neurologic: alert and oriented x3, CN 3-12 intact Psychiatric: mood/affect appropriate - Lab 08/30/18 05:24 08/30/18 05:24 Most recent lab results Calcium 8.6 mg/dL (8.4-10.2) 08/30/18 05:24 Phosphorus 3.70 mg/dL (2.5-4.5) 08/23/18 09:05 Magnesium 1.90 mg/dL (1.7-2.3) 08/28/18 13:05 - Imaging Chest x-ray: image reviewed (I reviewed chest x-ray cardiomegaly and pulmonary vascular markings) Medications & Allergies - Medications Allergies/Adverse Reactions: Allergies No Known Allergies Allergy (Unverified 06/05/17 13:30) Home Medications: Home Medications Medication Instructions Recorded Confirmed Last Taken Type Aspirin 81 mg PO DAILY 11/14/17 08/22/18 Unknown History Megestrol Acetate 800 mg PO DAILY 11/14/17 08/22/18 Unknown History OLANZapine [Zyprexa] 2.5 mg PO DAILY 11/14/17 08/22/18 Unknown History FLUoxetine [PROzac] 40 mg PO QDAY #30 capsule 11/26/17 08/22/18 Unknown Rx Ferrous Sulfate [Ferrous Sulfate 300 mg PO QDAY #30 oral.liqd 11/26/17 08/22/18 Unknown Rx Oral Liq 300 Mg/5 Ml] Pantoprazole [Protonix TAB] 40 mg PO QDAY #30 tablet 11/26/17 08/22/18 Unknown Rx amLODIPine [Norvasc] 10 mg PO DAILY #30 tablet 11/26/17 08/22/18 Unknown Rx Carvedilol [Coreg] 25 mg PO BID tablet 12/06/17 08/22/18 Unknown Rx cloNIDine [Catapres] 0.1 mg PO Q8H tablet 12/06/17 08/22/18 Unknown Rx traMADol [Ultram 50 MG tab] 50 mg PO Q12HR PRN #20 tablet 12/06/17 08/22/18 Unknown Rx Acetaminophen 325 mg PO Q6H PRN 12/22/17 08/22/18 Unknown History Glucagon HCl 1 mg IM ONCE PRN 12/22/17 08/22/18 Unknown History Klor-Con 10 10 meq PO DAILY 12/22/17 08/22/18 Unknown History Lispro Insulin [HumaLOG] See Protocol SC ACHS 12/22/17 08/22/18 Unknown History Simethicone 80 mg PO Q8H PRN 12/22/17 08/22/18 Unknown History levETIRAcetam [Keppra ORAL LIQ] 750 mg PO BID 30 Days bottle 01/04/18 08/22/18 Unknown Rx Active Medications: Generic Name Dose Route Start Last Admin Trade Name Tobin PRN Reason Stop Dose Admin Acetaminophen 650 mg 08/22/18 23:50 08/24/18 22:55 Tylenol PO 650 mg Q4H PRN Administration Pain MILD(1-3)/Fever >100.5/CARTER Amlodipine Besylate 10 mg 08/24/18 10:00 08/30/18 12:40 Norvasc PO 10 mg DAILY NASH Administration Lipase/Protease/Amylase 1 each 08/23/18 15:27 Pancreaze 10,500 Unit FEEDTUBE PRN PRN For Clogged Feeding Tube Aspirin 81 mg 08/24/18 10:00 08/30/18 12:41 Baby Aspirin PO 81 mg DAILY NASH Administration Carvedilol 25 mg 08/25/18 22:00 08/30/18 12:40 Coreg PO 25 mg BID NASH Administration Clonidine HCl 0.3 mg 08/24/18 10:00 08/24/18 10:46 Catapres-Tts Patch TD 0.3 mg QWEEK NASH Administration Dextrose 50 ml 08/22/18 23:50 D50w (25gm) Syringe IV PRN PRN Hypoglycemia Fluoxetine HCl 40 mg 08/24/18 10:00 08/30/18 12:41 Prozac PO 40 mg QDAY NASH Administration Heparin Sodium (Porcine) 5,000 unit 08/23/18 10:00 08/30/18 12:41 Heparin SUB-Q 5,000 unit Q12HR NASH Administration Hydralazine HCl 10 mg 08/24/18 07:32 08/29/18 22:02 Apresoline IV 10 mg Q4HR PRN Administration HTN >155/90 Hydralazine HCl 100 mg 08/28/18 14:00 08/30/18 06:25 Apresoline PO 100 mg Q8HR NASH Administration Insulin Human Isoph/Insulin Regular 15 unit 08/25/18 12:00 08/29/18 18:13 Humulin 70/30 SUB-Q 15 unit BIDDIAB NASH Administration Insulin Human Lispro 0 unit 08/26/18 00:00 08/30/18 13:30 Humalog SUB-Q 3 unit Q6HR NASH Administration Protocol Levetiracetam 1,000 mg 08/27/18 10:00 08/30/18 12:40 Keppra PO 1,000 mg BID NASH Administration Lorazepam 1 mg 08/23/18 01:58 Ativan IV Q4H PRN Seizures Losartan Potassium 50 mg 08/27/18 12:06 08/30/18 12:41 Cozaar PO 50 mg QDAY NASH Administration Olanzapine 2.5 mg 08/24/18 10:00 08/29/18 10:28 Zyprexa PO 2.5 mg DAILY NASH Administration Ondansetron HCl 4 mg 08/22/18 23:50 Zofran IV Q8H PRN Nausea And Vomiting Simple Syrup 15 ml 08/23/18 15:27 Simple Syrup FEEDTUBE PRN PRN Hypoglycemia Simple Syrup 30 ml 08/23/18 15:27 Simple Syrup FEEDTUBE PRN PRN Hypoglycemia Sodium Bicarbonate 325 mg 08/23/18 15:27 Sodium Bicarbonate FEEDTUBE PRN PRN For Clogged Feeding Tube Sodium Chloride 10 ml 08/22/18 23:50 08/29/18 22:13 Sodium Chloride Flush Syringe 10 Ml IV 10 ml BID NASH Administration Sodium Chloride 10 ml 08/23/18 00:12 Sodium Chloride Flush Syringe 10 Ml IV PRN PRN LINE FLUSH Spironolactone 50 mg 08/25/18 10:00 08/30/18 12:40 Aldactone PO 50 mg QDAY NASH Administration
[2018-08-30] MEDS: SODIUM CHLORIDE FLUSH SYRINGE 10 ML IV SCH ×2 (17:23→22:54)
[2018-08-31] MEDS: HumaLOG SUB-Q SCH ×4 (00:36→18:00)
[2018-08-31] MEDS: APRESOLINE PO SCH ×4 (06:05→21:07)
[2018-08-31] MEDS: COREG PO SCH ×2 (12:15→21:07)
[2018-08-31] MEDS: KEPPRA PO SCH ×2 (12:15→21:07)
[2018-08-31] MEDS: BABY ASPIRIN PO SCH (12:21)
[2018-08-31] MEDS: CATAPRES-TTS PATCH TD SCH (12:21)
[2018-08-31] MEDS: HEPARIN SUB-Q SCH ×2 (12:22→21:07)
[2018-08-31] MEDS: NORVASC PO SCH (12:22)
[2018-08-31] MEDS: PROzac PO SCH (12:24)
[2018-08-31] MEDS: SODIUM CHLORIDE FLUSH SYRINGE 10 ML IV SCH ×2 (12:24→21:08)
[2018-08-31 13:27] LABS: Calcium 8.6 mg/dL (8.4-10.2)
[2018-08-31] MEDS: COZAAR PO SCH (14:03)
[2018-08-31] MEDS: ALDACTONE PO SCH (14:29)
--- NOTE | 2018-08-31 15:39 | Progress Note ---
Assessment and Plan - Patient Problems (1) Acute kidney injury superimposed on CKD Current Visit: No Status: Acute Plan to address problem: Acuter kidney injury superimposed on CKD baseline creatinine : 1.4mg/dl , December 2017 current creatinine : 1.8mg/dl - currently on Losartan and spirinolactone elevated potassium today - will hold spirinolactone. - Avoid nephrotoxins if possible - I reviewed renal US results with normal-appearing kidneys without hydronephrosis or masses. This appears to be name baseline renal function patient will reevaluate in the a.m. - Strict input and output. (2) Hypertensive emergency Current Visit: Yes Status: Acute Plan to address problem: History of HTN emergency Uncontrolled HTN now improving - currently on amlodipine, Coreg , Hydralazine , clonidine patch, Losartan -hold spirinolactone (3) Acidosis Current Visit: No Status: Acute Plan to address problem: Acidosis : controlled. Continue to monitor. (4) Diastolic CHF Current Visit: No Status: Acute Qualifiers: Heart failure chronicity: acute on chronic Qualified Code(s): I50.33 - Acute on chronic diastolic (congestive) heart failure Plan to address problem: Diastolic CHF I reviewed Echocardiogram with EF : 40-45% with impaired disatolic relaxation Ensure HTN control. (5) Hyperkalemia, diminished renal excretion Current Visit: Yes Status: Acute Plan to address problem: Hyperkalemia : - on Losartan and spirinolactone - likely related to medications - Will hold spirinolactone. Subjective Principal diagnosis: UTI Interval history: 62-year-old lady with uncontrolled hypertension and acute kidney injury nephrology following for same She was seen today. has some edema in right leg. very drowsy. She denies any orthopnea PND Denies any fevers or chills Objective - Vital Signs Vital signs: Vital Signs - 12hr 08/31/18 08/31/18 08/31/18 06:02 06:05 12:15 Temperature 99.7 F H Pulse Rate 67 66 66 Respiratory 18 Rate Blood Pressure 152/39 152/39 152/39 O2 Sat by Pulse 98 Oximetry 08/31/18 08/31/18 08/31/18 12:22 12:49 14:03 Temperature 98.4 F Pulse Rate 66 69 66 Respiratory 22 Rate Blood Pressure 152/39 179/60 152/39 O2 Sat by Pulse 100 Oximetry - General Appearance General appearance: well-developed, well-nourished, obese EENT: ATNC, PERRL, mucous membranes moist Neck: no JVD Respiratory: Present: Clear to Ascultation Cardiology: regular, S1S2 Gastrointestinal: normal, normoactive bowel sounds Integumentary: no rash Neurologic: CN 3-12 intact Musculoskeletal: other (left Above knee amputation, right leg with mild edema. ) Psychiatric: mood/affect appropriate - Lab 08/30/18 05:24 08/31/18 12:23 Most recent lab results Calcium 8.6 mg/dL (8.4-10.2) 08/31/18 12:23 Phosphorus 3.70 mg/dL (2.5-4.5) 08/23/18 09:05 Magnesium 1.90 mg/dL (1.7-2.3) 08/28/18 13:05 Medications & Allergies - Medications Allergies/Adverse Reactions: Allergies No Known Allergies Allergy (Unverified 06/05/17 13:30) Home Medications: Home Medications Medication Instructions Recorded Confirmed Last Taken Type Aspirin 81 mg PO DAILY 11/14/17 08/22/18 Unknown History Megestrol Acetate 800 mg PO DAILY 11/14/17 08/22/18 Unknown History OLANZapine [Zyprexa] 2.5 mg PO DAILY 11/14/17 08/22/18 Unknown History FLUoxetine [PROzac] 40 mg PO QDAY #30 capsule 11/26/17 08/22/18 Unknown Rx Ferrous Sulfate [Ferrous Sulfate 300 mg PO QDAY #30 oral.liqd 11/26/17 08/22/18 Unknown Rx Oral Liq 300 Mg/5 Ml] Pantoprazole [Protonix TAB] 40 mg PO QDAY #30 tablet 11/26/17 08/22/18 Unknown Rx amLODIPine [Norvasc] 10 mg PO DAILY #30 tablet 11/26/17 08/22/18 Unknown Rx Carvedilol [Coreg] 25 mg PO BID tablet 12/06/17 08/22/18 Unknown Rx cloNIDine [Catapres] 0.1 mg PO Q8H tablet 12/06/17 08/22/18 Unknown Rx traMADol [Ultram 50 MG tab] 50 mg PO Q12HR PRN #20 tablet 12/06/17 08/22/18 Unknown Rx Acetaminophen 325 mg PO Q6H PRN 12/22/17 08/22/18 Unknown History Glucagon HCl 1 mg IM ONCE PRN 12/22/17 08/22/18 Unknown History Klor-Con 10 10 meq PO DAILY 12/22/17 08/22/18 Unknown History Lispro Insulin [HumaLOG] See Protocol SC ACHS 12/22/17 08/22/18 Unknown History Simethicone 80 mg PO Q8H PRN 12/22/17 08/22/18 Unknown History levETIRAcetam [Keppra ORAL LIQ] 750 mg PO BID 30 Days bottle 01/04/18 08/22/18 Unknown Rx Active Medications: Generic Name Dose Route Start Last Admin Trade Name Freq PRN Reason Stop Dose Admin Acetaminophen 650 mg 08/22/18 23:50 08/24/18 22:55 Tylenol PO 650 mg Q4H PRN Administration Pain MILD(1-3)/Fever >100.5/CARTER Amlodipine Besylate 10 mg 08/24/18 10:00 08/31/18 12:22 Norvasc PO 10 mg DAILY NASH Administration Lipase/Protease/Amylase 1 each 08/23/18 15:27 Pancreaze 10,500 Unit FEEDTUBE PRN PRN For Clogged Feeding Tube Aspirin 81 mg 08/24/18 10:00 08/31/18 12:21 Baby Aspirin PO 81 mg DAILY NASH Administration Carvedilol 25 mg 08/25/18 22:00 08/31/18 12:15 Coreg PO 25 mg BID NASH Administration Clonidine HCl 0.3 mg 08/24/18 10:00 08/31/18 12:21 Catapres-Tts Patch TD 0.3 mg QWEEK NASH Administration Dextrose 50 ml 08/22/18 23:50 D50w (25gm) Syringe IV PRN PRN Hypoglycemia Fluoxetine HCl 40 mg 08/24/18 10:00 08/31/18 12:24 Prozac PO 40 mg QDAY NASH Administration Heparin Sodium (Porcine) 5,000 unit 08/23/18 10:00 08/31/18 12:22 Heparin SUB-Q 5,000 unit Q12HR NASH Administration Hydralazine HCl 10 mg 08/24/18 07:32 08/29/18 22:02 Apresoline IV 10 mg Q4HR PRN Administration HTN >155/90 Hydralazine HCl 100 mg 08/28/18 14:00 08/31/18 14:30 Apresoline PO Not Given Q8HR NASH Insulin Human Isoph/Insulin Regular 15 unit 08/25/18 12:00 08/31/18 08:54 Humulin 70/30 SUB-Q Not Given BIDDIAB NASH Insulin Human Lispro 0 unit 08/26/18 00:00 08/31/18 14:01 Humalog SUB-Q 4 unit Q6HR NASH Administration Protocol Levetiracetam 1,000 mg 08/27/18 10:00 08/31/18 12:15 Keppra PO 1,000 mg BID NASH Administration Lorazepam 1 mg 08/23/18 01:58 Ativan IV Q4H PRN Seizures Losartan Potassium 50 mg 08/27/18 12:06 08/31/18 14:03 Cozaar PO 50 mg QDAY NASH Administration Olanzapine 2.5 mg 08/24/18 10:00 08/31/18 12:15 Zyprexa PO 2.5 mg DAILY NASH Administration Ondansetron HCl 4 mg 08/22/18 23:50 Zofran IV Q8H PRN Nausea And Vomiting Simple Syrup 15 ml 08/23/18 15:27 Simple Syrup FEEDTUBE PRN PRN Hypoglycemia Simple Syrup 30 ml 08/23/18 15:27 Simple Syrup FEEDTUBE PRN PRN Hypoglycemia Sodium Bicarbonate 325 mg 08/23/18 15:27 Sodium Bicarbonate FEEDTUBE PRN PRN For Clogged Feeding Tube Sodium Chloride 10 ml 08/22/18 23:50 08/31/18 12:24 Sodium Chloride Flush Syringe 10 Ml IV 10 ml BID NASH Administration Sodium Chloride 10 ml 08/23/18 00:12 Sodium Chloride Flush Syringe 10 Ml IV PRN PRN LINE FLUSH
--- NOTE | 2018-08-31 16:36 | Progress Note ---
Assessment and Plan Assessment and plan: 62-year-old female patient in [facility] resident was admitted through emergency room with witnessed seizures and status epilepticus Patient was also noted to have hypertensive emergency requiring Cardene drip, admitted and stabilized in ICU, transferred to medical floor. Patient was placed on antiepileptic medications, seizure precautions, evaluated by neurology Patient had UTI present on admission positive for ESBL, placed on contact isolation, evaluated by ID, received meropenem for total 4 days, patient's symptoms significantly improved, ID advised to continue contact isolation. Patient did not have any new episodes of seizures, is hemodynamically and clinically stable for discharge However isolation rooms are not available in the [facility]. Awaiting to return to [facility] when isolation room is available --Sepsis secondary to UTI /ESBL;present on admission Completed total 4 days of Meropenem,per ID continue contact isolation, awaiting isolation bed at SNF --Metabolic encephalopathy; present on admission; resolved Multifactorial, sepsis, seizures, acute on chronic kidney disease --Hypertensive Emergency: Present on admission. Blood pressures are better controlled today s/p cardine drip, on amlodipine, Coreg, clonidine, losartan, hydralazine and spi ronolactone And when necessary hydralazine, --Status epilepticus: Seizure precautions, continue keppra to 1000mg bid Ativan when necessary, neurology evaluated the patient --CLINT on CKD 3: Vasomotor nephropathy Gentle hydration, monitor renal function, avoid nephrotoxins, creatinine level trending down Nephrology following --Hyperkalemia: corrected --Moderate to severe malnutrition: Nutrition supplements Supportive care, nutrition consult if needed --Severe debility; physical therapy occupational therapy --Insulin-dependent diabetes; Accu-Chek sliding scale coverage and ADA diet Insulin as needed,hemoglobin A1c 8.3 --History of left AKA: Supportive care --History of endometrial cancer status post hysterectomy,stable --History of major depression; continue current antidepression medications --Dyslipidemia; stable on lipid-lowering medicine, low-cholesterol diet --DVT Prophylaxis; Lovenox Plan of care reviewed with the patient and her nurse Discharge planning. Case management Pt will return to SNF when isolation room is available Patient is medically stable for discharge History Interval history: Patient has no new complaints, Vital signs stable Awaiting placement Hospitalist Physical - Constitutional Vitals: Temp Pulse Resp BP Pulse Ox 98.4 F 66 22 152/39 100 08/31/18 12:49 07/24/19 14:03 08/31/18 12:49 08/31/18 14:03 08/31/18 12:49 General appearance: Present: no acute distress, well-nourished, obese - EENT Eyes: Present: PERRL, EOM intact - Neck Neck: Present: supple, normal ROM - Respiratory Respiratory effort: normal - Cardiovascular Rhythm: regular Heart Sounds: Present: S1 & S2 - Extremities Extremities: no ischemia, abnormal (s/p AKA) - Abdominal General gastrointestinal: soft, non-tender, non-distended - Integumentary Integumentary: Present: clear, warm - Psychiatric Psychiatric: cooperative - Neurologic Neurologic: moves all extremities Results - Labs CBC & Chem 7: 08/30/18 05:24 08/31/18 12:23 Labs: Laboratory Last Values WBC 8.9 K/mm3 (4.5-11.0) 08/30/18 05:24 RBC 3.33 M/mm3 (3.65-5.03) L 08/30/18 05:24 Hgb 9.2 gm/dl (10.1-14.3) L 08/30/18 05:24 Hct 28.5 % (30.3-42.9) L 08/30/18 05:24 MCV 86 fl (79-97) 08/30/18 05:24 MCH 28 pg (28-32) 08/30/18 05:24 MCHC 32 % (30-34) 08/30/18 05:24 RDW 15.9 % (13.2-15.2) H 08/30/18 05:24 Plt Count 332 K/mm3 (140-440) 08/30/18 05:24 Lymph % (Auto) Installation Helper 08/24/18 04:37 Sampson % (Auto) Installation Helper 08/24/18 04:37 Eos % (Auto) Installation Helper 08/24/18 04:37 Baso % (Auto) Installation Helper 08/24/18 04:37 Lymph # Installation Helper 08/24/18 04:37 Sampson # Installation Helper 08/24/18 04:37 Eos # Installation Helper 08/24/18 04:37 Baso # Installation Helper 08/24/18 04:37 Add Manual Diff Complete 08/30/18 05:24 Total Counted 100 08/30/18 05:24 Seg Neutrophils % Installation Helper 08/24/18 04:37 Seg Neuts % (Manual) 69.0 % (40.0-70.0) 08/30/18 05:24 2.0 % 08/30/18 05:24 14.0 % (13.4-35.0) 08/30/18 05:24 Reactive Lymphs % (Man) 0 % 08/30/18 05:24 13.0 % (0.0-7.3) H 08/30/18 05:24 2.0 % (0.0-4.3) 08/30/18 05:24 0 % (0.0-1.8) 08/30/18 05:24 0 % 08/30/18 05:24 0 % 08/30/18 05:24 0 % 08/30/18 05:24 0 % 08/30/18 05:24 Nucleated RBC % Not Reportable 08/30/18 05:24 Seg Neutrophils # Installation Helper 08/24/18 04:37 Seg Neutrophils # Man 6.1 K/mm3 (1.8-7.7) 08/30/18 05:24 Band Neutrophils # 0.2 K/mm3 08/30/18 05:24 1.2 K/mm3 (1.2-5.4) 08/30/18 05:24 Abs React Lymphs (Man) 0.0 K/mm3 08/30/18 05:24 1.2 K/mm3 (0.0-0.8) H 08/30/18 05:24 0.2 K/mm3 (0.0-0.4) 08/30/18 05:24 0.0 K/mm3 (0.0-0.1) 08/30/18 05:24 0.0 K/mm3 08/30/18 05:24 0.0 K/mm3 08/30/18 05:24 0.0 K/mm3 08/30/18 05:24 Blast Cells # 0.0 K/mm3 08/30/18 05:24 WBC Morphology Not Reportable 08/30/18 05:24 Hypersegmented Neuts Not Reportable 08/30/18 05:24 Hyposegmented Neuts Not Reportable 08/30/18 05:24 Hypogranular Neuts Not Reportable 08/30/18 05:24 Not Reportable 08/30/18 05:24 Not Reportable 08/30/18 05:24 Not Reportable 08/30/18 05:24 Not Reportable 08/30/18 05:24 Not Reportable 08/30/18 05:24 Not Reportable 08/30/18 05:24 Consistent w auto 08/30/18 05:24 Not Reportable 08/30/18 05:24 Plt Clumps, EDTA Not Reportable 08/30/18 05:24 Not Reportable 08/30/18 05:24 Not Reportable 08/30/18 05:24 Not Reportable 08/30/18 05:24 Plt Morphology Comment Not Reportable 08/30/18 05:24 RBC Morphology Not Reportable 08/30/18 05:24 Dimorphic RBCs Not Reportable 08/30/18 05:24 Not Reportable 08/30/18 05:24 Not Reportable 08/30/18 05:24 Not Reportable 08/30/18 05:24 Not Reportable 08/30/18 05:24 Not Reportable 08/30/18 05:24 Few 08/30/18 05:24 Not Reportable 08/30/18 05:24 Not Reportable 08/30/18 05:24 Not Reportable 08/30/18 05:24 Not Reportable 08/30/18 05:24 Not Reportable 08/30/18 05:24 Not Reportable 08/30/18 05:24 Not Reportable 08/30/18 05:24 Not Reportable 08/30/18 05:24 Not Reportable 08/30/18 05:24 Not Reportable 08/30/18 05:24 Not Reportable 08/30/18 05:24 Not Reportable 08/30/18 05:24 Not Reportable 08/30/18 05:24 Acanthocytes (Spur) Not Reportable 08/30/18 05:24 Rouleaux Not Reportable 08/30/18 05:24 Not Reportable 08/30/18 05:24 Not Reportable 08/30/18 05:24 Not Reportable 08/30/18 05:24 Not Reportable 08/30/18 05:24 Hem Pathologist Commnt No 08/30/18 05:24 Sodium 134 mmol/L (137-145) L 08/31/18 12:23 Potassium 5.1 mmol/L (3.6-5.0) H 08/31/18 12:23 Chloride 99.8 mmol/L (98-107) 08/31/18 12:23 Carbon Dioxide 25 mmol/L (22-30) 08/31/18 12:23 14 mmol/L 08/31/18 12:23 BUN 31 mg/dL (7-17) H 08/31/18 12:23 1.8 mg/dL (0.7-1.2) H 08/31/18 12:23 Estimated GFR 34 ml/min 08/31/18 12:23 17 % 08/31/18 12:23 Glucose 211 mg/dL (65-100) H 08/31/18 12:23 POC Glucose 233 (70-105) H 08/31/18 12:57 8.3 % (4-6) H 08/23/18 01:03 313 Mosm/kg 08/23/18 10:10 Lactic Acid 0.80 mmol/L (0.7-2.0) 08/23/18 10:10 7.7 mg/dL (3.5-7.6) H 08/23/18 09:05 Calcium 8.6 mg/dL (8.4-10.2) 08/31/18 12:23 Phosphorus 3.70 mg/dL (2.5-4.5) 08/23/18 09:05 Magnesium 1.90 mg/dL (1.7-2.3) 08/28/18 13:05 0.30 mg/dL (0.1-1.2) 08/23/18 09:05 AST 19 units/L (5-40) 08/23/18 09:05 ALT 7 units/L (7-56) 08/23/18 09:05 93 units/L (35-129) 08/23/18 09:05 612 units/L (30-135) H 08/23/18 09:05 7.4 g/dL (6.3-8.2) 08/23/18 09:05 3.1 g/dL (3.9-5) L 08/23/18 09:05 0.7 % 08/23/18 09:05 Triglycerides 160 mg/dL (2-149) H 08/23/18 04:08 Cholesterol 325 mg/dL (50-199) H 08/23/18 04:08 248 mg/dL (50-130) H 08/23/18 04:08 60 mg/dL (40-59) H 08/23/18 04:08 5.41 % 08/23/18 04:08 0.08 ng/mL/h (0.25-5.82) L 08/23/18 10:10 3 ng/dL () 08/23/18 10:10 Aldosterone/Renin Dir 37.5 Ratio (0.9-28.9) H 08/23/18 10:10 [place] (Yellow) 08/22/18 19:45 Cloudy (Clear) 08/22/18 19:45 6.0 (5.0-7.0) 08/22/18 19:45 Ur Specific [place] 1.024 (1.003-1.030) 08/22/18 19:45 >500 mg/dL (Negative) 08/22/18 19:45 150 mg/dL (Negative) 08/22/18 19:45 Neg mg/dL (Negative) 08/22/18 19:45 Sm (Negative) 08/22/18 19:45 Neg (Negative) 08/22/18 19:45 Neg (Negative) 08/22/18 19:45 < 2.0 mg/dL (<2.0) 08/22/18 19:45 Ur Leukocyte Esterase Tr (Negative) 08/22/18 19:45 42.0 /HPF (0.0-6.0) H 08/22/18 19:45 11.0 /HPF (0.0-6.0) 08/22/18 19:45 U Epithel Cells (Auto) 4.0 /HPF (0-13.0) 08/22/18 19:45 4+ /HPF (Negative) 08/22/18 19:45 Hyaline Casts 7 /LPF 08/22/18 19:45 1+ /HPF 08/22/18 19:45 Active Medications - Current Medications Current Medications: Generic Name Dose Route Start Last Admin Trade Name Freq PRN Reason Stop Dose Admin Acetaminophen 650 mg 08/22/18 23:50 08/24/18 22:55 Tylenol PO 650 mg Q4H PRN Administration Pain MILD(1-3)/Fever >100.5/CARTER Amlodipine Besylate 10 mg 08/24/18 10:00 08/31/18 12:22 Norvasc PO 10 mg DAILY NASH Administration Lipase/Protease/Amylase 1 each 08/23/18 15:27 Teresa Billingsley 10,500 Unit FEEDTUBE PRN PRN For Clogged Feeding Tube Aspirin 81 mg 08/24/18 10:00 08/31/18 12:21 Baby Aspirin PO 81 mg DAILY NASH Administration Carvedilol 25 mg 08/25/18 22:00 08/31/18 12:15 Coreg PO 25 mg BID NASH Administration Clonidine HCl 0.3 mg 08/24/18 10:00 08/31/18 12:21 Catapres-Tts Patch TD 0.3 mg QWEEK NASH Administration Dextrose 50 ml 08/22/18 23:50 D50w (25gm) Syringe IV PRN PRN Hypoglycemia Fluoxetine HCl 40 mg 08/24/18 10:00 08/31/18 12:24 Prozac PO 40 mg QDAY NASH Administration Heparin Sodium (Porcine) 5,000 unit 08/23/18 10:00 08/31/18 12:22 Heparin SUB-Q 5,000 unit Q12HR NASH Administration Hydralazine HCl 10 mg 08/24/18 07:32 08/29/18 22:02 Apresoline IV 10 mg Q4HR PRN Administration HTN >155/90 Hydralazine HCl 100 mg 08/28/18 14:00 08/31/18 14:30 Apresoline PO Not Given Q8HR NASH Insulin Human Isoph/Insulin Regular 15 unit 08/25/18 12:00 08/31/18 08:54 Humulin 70/30 SUB-Q Not Given BIDDIAB [facility] Insulin Human Lispro 0 unit 08/26/18 00:00 08/31/18 14:01 Humalog SUB-Q 4 unit Q6HR NASH Administration Protocol Levetiracetam 1,000 mg 08/27/18 10:00 08/31/18 12:15 Keppra PO 1,000 mg BID NASH Administration Lorazepam 1 mg 08/23/18 01:58 Ativan IV Q4H PRN Seizures Losartan Potassium 50 mg 08/27/18 12:06 08/31/18 14:03 Cozaar PO 50 mg QDAY NASH Administration Olanzapine 2.5 mg 08/24/18 10:00 08/31/18 12:15 Zyprexa PO 2.5 mg DAILY NASH Administration Ondansetron HCl 4 mg 08/22/18 23:50 Zofran IV Q8H PRN Nausea And Vomiting Simple Syrup 15 ml 08/23/18 15:27 Simple Syrup FEEDTUBE PRN PRN Hypoglycemia Simple Syrup 30 ml 08/23/18 15:27 Simple Syrup FEEDTUBE PRN PRN Hypoglycemia Sodium Bicarbonate 325 mg 08/23/18 15:27 Sodium Bicarbonate FEEDTUBE PRN PRN For Clogged Feeding Tube Sodium Chloride 10 ml 08/22/18 23:50 08/31/18 12:24 Sodium Chloride Flush Syringe 10 Ml IV 10 ml BID NASH Administration Sodium Chloride 10 ml 08/23/18 00:12 Sodium Chloride Flush Syringe 10 Ml IV PRN PRN LINE FLUSH Nutrition/Malnutrition Assess - Dietary Evaluation Nutrition/Malnutrition Findings: Nutrition Notes Start: 08/23/18 15:56 Freq: Status: Active Protocol: Document 08/29/18 16:28 RM (Rec: 08/29/18 16:32 RM [id number]) Nutrition Notes Initial or Follow up Reassessment Current Diagnosis Acute Kidney Injury,CKD(stage I-IV),Coronary Artery Disease, Diabetes,Sepsis,Hypertension, Hyperlipidemia Other Pertinent Diagnosis PVD, Hx endometrial CA, Seizures, AKA Current Diet [facility] soft Labs/Tests K 4.3 A1c 8.3 BG 105 Pertinent Medications Reviewed Height 5 ft Weight 60.4 kg [place] Body Weight (kg) 45.45 BMI 25.9 Subjective/Other Information TF D/C'd. Diet advanced to [facility] soft. Pt asleep at time of visit. Noted breakfast at bedside w/bites eaten. Percent of energy/protein needs met: 0%/0% Burn Absent Trauma Absent #1 Nutrition Diagnosis Inadequate oral intake Diagnosis Progress(for reassessment Continues documentation) Is patient on ventilator? No Is Patient Ambulatory and/or Out of Bed No REE-([facility]-confined to bed) 1296.024 Kcal/Kg value to use for calculation 15 Approximate Energy Requirements Using 906 kcal/Kg Calculation Used for Recommendations Kcal/kg Additional Notes Protein Needs: 54-67g (0.8-1g/ kg 67kg adjBW) Fluid Needs: 1 ml/kcal Nutrition Intervention Change Diet Order: Cardiac/Consistent CHO Nutrition Support: D/C Add Supplement/Snack (indicate name/kcal Glucerna 1 daily /protein ) Provides kCal: 220 Provides Protein (gm) 10 Goal #1 Meet at least 75% of calorie and protein needs via PO and ONS intakes Anticipated Discharge Needs: Unable to determine at this time Follow-Up By: 08/31/18 Additional Comments Follow for PO and ONS intakes
[2018-08-31] MEDS: APRESOLINE IV PRN (18:09)
[2018-09-01] MEDS: HumaLOG SUB-Q SCH ×4 (01:03→18:32)
[2018-09-01 05:52] LABS: Calcium 8.6 mg/dL (8.4-10.2)
[2018-09-01] MEDS: APRESOLINE PO SCH ×3 (07:02→22:28)
--- NOTE | 2018-09-01 07:39 | Progress Note ---
Assessment and Plan Assessment and plan: 62-year-old female patient in skilled nursing resident was admitted through emergency room with witnessed seizures and status epilepticus Patient was also noted to have hypertensive emergency requiring Cardene drip, admitted and stabilized in ICU, transferred to medical floor. Patient was placed on antiepileptic medications, seizure precautions, evaluated by neurology Patient had UTI present on admission positive for ESBL, placed on contact isolation, evaluated by ID, received meropenem for total 4 days, patient's symptoms significantly improved, ID advised to continue contact isolation. Patient did not have any new episodes of seizures, is hemodynamically and clinically stable for discharge However isolation rooms are not available in the skilled nursing. Awaiting to return to skilled nursing when isolation room is available CXR: Mild cardiomegaly and PULMONARY VASCULAR CONGESTION --Sepsis secondary to UTI /ESBL;present on admission Completed total 4 days of Meropenem,per ID continue contact isolation, awaiting isolation bed at SNF --Metabolic encephalopathy; present on admission; resolved Multifactorial, sepsis, seizures, acute on chronic kidney disease --Hypertensive Emergency: Present on admission. Blood pressures are better controlled today s/p cardine drip, on amlodipine, Coreg, clonidine, losartan, hydralazine spironolactone Held due to Hyperkalmia And when necessary hydralazine, --Status epilepticus: Seizure precautions, continue keppra to 1000mg bid Ativan when necessary, neurology evaluated the patient --CLINT on CKD 3: Vasomotor nephropathy Gentle hydration INITIALLY now discontinued, slow renal improvement noted, continue to monitor renal function, avoid nephrotoxins, creatinine level trending down Nephrology following --Hyperkalemia: corrected, ARB held --Moderate to severe malnutrition: Nutrition supplements Supportive care, nutrition consulted and input noted --Severe debility; physical therapy occupational therapy --Insulin-dependent diabetes; Accu-Chek sliding scale coverage and ADA diet Insulin as needed,hemoglobin A1c 8.3 --History of left AKA: Supportive care --History of endometrial cancer status post hysterectomy,stable --History of major depression; continue current antidepression medications --Dyslipidemia; stable on lipid-lowering medicine, low-cholesterol diet --DVT Prophylaxis; Lovenox Plan of care reviewed with the patient and her nurse Discharge planning. Case management Pt will return to SNF when isolation room is available Patient is medically stable for discharge Case discussed during MDR Hospitalist Physical - Physical exam Narrative exam: General appearance: Present: no acute distress, well-nourished, obese - EENT Eyes: Present: PERRL, EOM intact - Neck Neck: Present: supple, normal ROM - Respiratory Respiratory effort: normal Respiratory: bilateral: diminished, negative: rales, rhonchi, wheezing - Cardiovascular Rhythm: regular Heart Sounds: Present: S1 & S2 - Extremities Extremities: no ischemia, No edema, abnormal (right AKA) - Abdominal General gastrointestinal: soft, non-tender, non-distended, normal bowel sounds - Integumentary Integumentary: Present: clear, warm - Psychiatric Psychiatric: appropriate mood/affect, cooperative - Neurologic Neurologic: moves all extremities - Constitutional Vitals: Temp Pulse Resp BP Pulse Ox 99.2 F 61 18 155/48 99 09/01/18 06:59 09/01/18 06:59 09/01/18 06:59 09/01/18 06:59 09/01/18 06:59 General appearance: Present: no acute distress, well-nourished, obese Results - Labs CBC & Chem 7: 08/30/18 05:24 09/01/18 05:03 Labs: Laboratory Last Values WBC 8.9 K/mm3 (4.5-11.0) 08/30/18 05:24 RBC 3.33 M/mm3 (3.65-5.03) L 08/30/18 05:24 Hgb 9.2 gm/dl (10.1-14.3) L 08/30/18 05:24 Hct 28.5 % (30.3-42.9) L 08/30/18 05:24 MCV 86 fl (79-97) 08/30/18 05:24 MCH 28 pg (28-32) 08/30/18 05:24 MCHC 32 % (30-34) 08/30/18 05:24 RDW 15.9 % (13.2-15.2) H 08/30/18 05:24 Plt Count 332 K/mm3 (140-440) 08/30/18 05:24 Lymph % (Auto) [employer] 08/24/18 04:37 [place] % (Auto) [employer] 08/24/18 04:37 Eos % (Auto) [employer] 08/24/18 04:37 Baso % (Auto) [employer] 08/24/18 04:37 Lymph # [employer] 08/24/18 04:37 [place] # [employer] 08/24/18 04:37 Eos # [employer] 08/24/18 04:37 Baso # [employer] 08/24/18 04:37 Add Manual Diff Complete 08/30/18 05:24 Total Counted 100 08/30/18 05:24 Seg Neutrophils % [employer] 08/24/18 04:37 Seg Neuts % (Manual) 69.0 % (40.0-70.0) 08/30/18 05:24 2.0 % 08/30/18 05:24 14.0 % (13.4-35.0) 08/30/18 05:24 Reactive Lymphs % (Man) 0 % 08/30/18 05:24 13.0 % (0.0-7.3) H 08/30/18 05:24 2.0 % (0.0-4.3) 08/30/18 05:24 0 % (0.0-1.8) 08/30/18 05:24 0 % 08/30/18 05:24 0 % 08/30/18 05:24 0 % 08/30/18 05:24 0 % 08/30/18 05:24 Nucleated RBC % Not Reportable 08/30/18 05:24 Seg Neutrophils # [employer] 08/24/18 04:37 Seg Neutrophils # Man 6.1 K/mm3 (1.8-7.7) 08/30/18 05:24 Band Neutrophils # 0.2 K/mm3 08/30/18 05:24 1.2 K/mm3 (1.2-5.4) 08/30/18 05:24 Abs React Lymphs (Man) 0.0 K/mm3 08/30/18 05:24 1.2 K/mm3 (0.0-0.8) H 08/30/18 05:24 0.2 K/mm3 (0.0-0.4) 08/30/18 05:24 0.0 K/mm3 (0.0-0.1) 08/30/18 05:24 0.0 K/mm3 08/30/18 05:24 0.0 K/mm3 08/30/18 05:24 0.0 K/mm3 08/30/18 05:24 Blast Cells # 0.0 K/mm3 08/30/18 05:24 WBC Morphology Not Reportable 08/30/18 05:24 Hypersegmented Neuts Not Reportable 08/30/18 05:24 Hyposegmented Neuts Not Reportable 08/30/18 05:24 Hypogranular Neuts Not Reportable 08/30/18 05:24 Not Reportable 08/30/18 05:24 Not Reportable 08/30/18 05:24 Not Reportable 08/30/18 05:24 Not Reportable 08/30/18 05:24 Not Reportable 08/30/18 05:24 Not Reportable 08/30/18 05:24 Consistent w auto 08/30/18 05:24 Not Reportable 08/30/18 05:24 Plt Clumps, EDTA Not Reportable 08/30/18 05:24 Not Reportable 08/30/18 05:24 Not Reportable 08/30/18 05:24 Not Reportable 08/30/18 05:24 Plt Morphology Comment Not Reportable 08/30/18 05:24 RBC Morphology Not Reportable 08/30/18 05:24 Dimorphic RBCs Not Reportable 08/30/18 05:24 Not Reportable 08/30/18 05:24 Not Reportable 08/30/18 05:24 Not Reportable 08/30/18 05:24 Not Reportable 08/30/18 05:24 Not Reportable 08/30/18 05:24 Few 08/30/18 05:24 Not Reportable 08/30/18 05:24 Not Reportable 08/30/18 05:24 Not Reportable 08/30/18 05:24 Not Reportable 08/30/18 05:24 Not Reportable 08/30/18 05:24 Not Reportable 08/30/18 05:24 Not Reportable 08/30/18 05:24 Not Reportable 08/30/18 05:24 Not Reportable 08/30/18 05:24 Not Reportable 08/30/18 05:24 Not Reportable 08/30/18 05:24 Not Reportable 08/30/18 05:24 Not Reportable 08/30/18 05:24 Acanthocytes (Spur) Not Reportable 08/30/18 05:24 Rouleaux Not Reportable 08/30/18 05:24 Not Reportable 08/30/18 05:24 Not Reportable 08/30/18 05:24 Not Reportable 08/30/18 05:24 Not Reportable 08/30/18 05:24 Hem Pathologist Commnt No 08/30/18 05:24 Sodium 138 mmol/L (137-145) 09/01/18 05:03 Potassium 4.8 mmol/L (3.6-5.0) 09/01/18 05:03 Chloride 103.6 mmol/L (98-107) 09/01/18 05:03 Carbon Dioxide 24 mmol/L (22-30) 09/01/18 05:03 15 mmol/L 09/01/18 05:03 BUN 32 mg/dL (7-17) H 09/01/18 05:03 1.7 mg/dL (0.7-1.2) H 09/01/18 05:03 Estimated GFR 37 ml/min 09/01/18 05:03 19 % 09/01/18 05:03 Glucose 85 mg/dL (65-100) 09/01/18 05:03 POC Glucose 104 (70-105) 09/01/18 06:55 8.3 % (4-6) H 08/23/18 01:03 313 Mosm/kg 08/23/18 10:10 Lactic Acid 0.80 mmol/L (0.7-2.0) 08/23/18 10:10 7.7 mg/dL (3.5-7.6) H 08/23/18 09:05 Calcium 8.6 mg/dL (8.4-10.2) 09/01/18 05:03 Phosphorus 3.70 mg/dL (2.5-4.5) 08/23/18 09:05 Magnesium 1.90 mg/dL (1.7-2.3) 08/28/18 13:05 0.30 mg/dL (0.1-1.2) 08/23/18 09:05 AST 19 units/L (5-40) 08/23/18 09:05 ALT 7 units/L (7-56) 08/23/18 09:05 93 units/L (35-129) 08/23/18 09:05 612 units/L (30-135) H 08/23/18 09:05 7.4 g/dL (6.3-8.2) 08/23/18 09:05 3.1 g/dL (3.9-5) L 08/23/18 09:05 0.7 % 08/23/18 09:05 Triglycerides 160 mg/dL (2-149) H 08/23/18 04:08 Cholesterol 325 mg/dL (50-199) H 08/23/18 04:08 248 mg/dL (50-130) H 08/23/18 04:08 60 mg/dL (40-59) H 08/23/18 04:08 5.41 % 08/23/18 04:08 0.08 ng/mL/h (0.25-5.82) L 08/23/18 10:10 3 ng/dL () 08/23/18 10:10 Aldosterone/Renin Dir 37.5 Ratio (0.9-28.9) H 08/23/18 10:10 [place] (Yellow) 08/22/18 19:45 Cloudy (Clear) 08/22/18 19:45 6.0 (5.0-7.0) 08/22/18 19:45 Ur Specific [place] 1.024 (1.003-1.030) 08/22/18 19:45 >500 mg/dL (Negative) 08/22/18 19:45 150 mg/dL (Negative) 08/22/18 19:45 Neg mg/dL (Negative) 08/22/18 19:45 Sm (Negative) 08/22/18 19:45 Neg (Negative) 08/22/18 19:45 Neg (Negative) 08/22/18 19:45 < 2.0 mg/dL (<2.0) 08/22/18 19:45 Ur Leukocyte Esterase Tr (Negative) 08/22/18 19:45 42.0 /HPF (0.0-6.0) H 08/22/18 19:45 11.0 /HPF (0.0-6.0) 08/22/18 19:45 U Epithel Cells (Auto) 4.0 /HPF (0-13.0) 08/22/18 19:45 4+ /HPF (Negative) 08/22/18 19:45 Hyaline Casts 7 /LPF 08/22/18 19:45 1+ /HPF 08/22/18 19:45 Active Medications - Current Medications Current Medications: Generic Name Dose Route Start Last Admin Trade Name Waqasq PRN Reason Stop Dose Admin Acetaminophen 650 mg 08/22/18 23:50 08/24/18 22:55 Tylenol PO 650 mg Q4H PRN Administration Pain MILD(1-3)/Fever >100.5/CARTER Amlodipine Besylate 10 mg 08/24/18 10:00 08/31/18 12:22 Norvasc PO 10 mg DAILY NASH Administration Lipase/Protease/Amylase 1 each 08/23/18 15:27 Pancrerosa [place] 10,500 Unit FEEDTUBE PRN PRN For Clogged Feeding Tube Aspirin 81 mg 08/24/18 10:00 08/31/18 12:21 Baby Aspirin PO 81 mg DAILY NASH Administration Carvedilol 25 mg 08/25/18 22:00 08/31/18 21:07 Coreg PO 25 mg BID NASH Administration Clonidine HCl 0.3 mg 08/24/18 10:00 08/31/18 12:21 Catapres-Tts Patch TD 0.3 mg QWEEK NASH Administration Dextrose 50 ml 08/22/18 23:50 D50w (25gm) Syringe IV PRN PRN Hypoglycemia Fluoxetine HCl 40 mg 08/24/18 10:00 08/31/18 12:24 Prozac PO 40 mg QDAY NASH Administration Heparin Sodium (Porcine) 5,000 unit 08/23/18 10:00 08/31/18 21:07 Heparin SUB-Q 5,000 unit Q12HR NASH Administration Hydralazine HCl 10 mg 08/24/18 07:32 08/31/18 18:09 Apresoline IV 10 mg Q4HR PRN Administration HTN >155/90 Hydralazine HCl 100 mg 08/28/18 14:00 09/01/18 07:02 Apresoline PO 100 mg Q8HR NASH Administration Insulin Human Isoph/Insulin Regular 15 unit 08/25/18 12:00 08/31/18 18:02 Humulin 70/30 SUB-Q 15 unit BIDDIAB NASH Administration Insulin Human Lispro 0 unit 08/26/18 00:00 09/01/18 07:03 Humalog SUB-Q Not Given Q6HR [facility] Protocol Levetiracetam 1,000 mg 08/27/18 10:00 08/31/18 21:07 Keppra PO 1,000 mg BID NASH Administration Lorazepam 1 mg 08/23/18 01:58 Ativan IV Q4H PRN Seizures Losartan Potassium 50 mg 08/27/18 12:06 08/31/18 14:03 Cozaar PO 50 mg QDAY NASH Administration Olanzapine 2.5 mg 08/24/18 10:00 08/31/18 12:15 Zyprexa PO 2.5 mg DAILY NASH Administration Ondansetron HCl 4 mg 08/22/18 23:50 Zofran IV Q8H PRN Nausea And Vomiting Simple Syrup 15 ml 08/23/18 15:27 Simple Syrup FEEDTUBE PRN PRN Hypoglycemia Simple Syrup 30 ml 08/23/18 15:27 Simple Syrup FEEDTUBE PRN PRN Hypoglycemia Sodium Bicarbonate 325 mg 08/23/18 15:27 Sodium Bicarbonate FEEDTUBE PRN PRN For Clogged Feeding Tube Sodium Chloride 10 ml 08/22/18 23:50 08/31/18 21:08 Sodium Chloride Flush Syringe 10 Ml IV 10 ml BID NASH Administration Sodium Chloride 10 ml 08/23/18 00:12 Sodium Chloride Flush Syringe 10 Ml IV PRN PRN LINE FLUSH Nutrition/Malnutrition Assess - Dietary Evaluation Nutrition/Malnutrition Findings: Nutrition Notes Start: 08/23/18 15:56 Freq: Status: Active Protocol: Document 08/31/18 18:10 RM (Rec: 08/31/18 18:16 RM [id number]) Nutrition Notes Initial or Follow up Reassessment Current Diagnosis Acute Kidney Injury,CKD(stage I-IV),Coronary Artery Disease, Diabetes,Sepsis,Hypertension, Hyperlipidemia Other Pertinent Diagnosis PVD, Hx endometrial CA, Seizures, AKA Current Diet Cardiac/Consistent CHO,Mech soft w/Glucerna Labs/Tests A1c 8.3 Pertinent Medications Reviewed Height 5 ft Weight 62.9 kg [place] Body Weight (kg) 45.45 BMI 27.1 Weight change and time frame [facility] Subjective/Other Information Pt confused at time of visit. Tech stated that pt ate 50% of her meals and drank the Glucerna. Percent of energy/protein needs met: 91%/93% Burn Absent Trauma Absent #1 Nutrition Diagnosis Inadequate oral intake As Evidenced by Signs and Symptoms pt meeting 91% of calorie and 93% of protein needs Diagnosis Progress(for reassessment Resolved documentation) Is patient on ventilator? No Is Patient Ambulatory and/or Out of Bed No REE-([place]-confined to bed) [phone] Calculation Used for Recommendations Kcal/kg Additional Notes Protein Needs: 54-67g (0.8-1g/ kg 67kg adjBW) Fluid Needs: 1 ml/kcal Nutrition Intervention Change Diet Order: Cardiac/Consistent CHO Add Supplement/Snack (indicate name/kcal Glucerna 1 daily /protein ) Provides kCal: 220 Provides Protein (gm) 10 Goal #1 Continue to meet at least 75% of calorie and protein needs via PO and ONS intakes Anticipated Discharge Needs: Unable to determine at this time Follow-Up By: 09/05/18 Additional Comments Follow for PO and ONS intakes, DM diet education
[2018-09-01] MEDS: KEPPRA PO SCH ×2 (10:32→22:29)
[2018-09-01] MEDS: PROzac PO SCH (10:32)
[2018-09-01] MEDS: BABY ASPIRIN PO SCH (10:32)
[2018-09-01] MEDS: COZAAR PO SCH (10:33)
[2018-09-01] MEDS: COREG PO SCH ×2 (10:35→22:27)
[2018-09-01] MEDS: SODIUM CHLORIDE FLUSH SYRINGE 10 ML IV SCH ×2 (10:35→22:30)
[2018-09-01] MEDS: NORVASC PO SCH (10:35)
[2018-09-01] MEDS: HEPARIN SUB-Q SCH ×2 (10:36→23:08)
--- NOTE | 2018-09-01 16:18 | Progress Note ---
Assessment and Plan - Patient Problems (1) Acute kidney injury superimposed on CKD Current Visit: No Status: Acute Plan to address problem: Acuter kidney injury superimposed on CKD baseline creatinine : 1.4mg/dl , December 2017 current creatinine : 1.7mg/dl - currently on Losartan and spirinolactone elevated potassium today - will hold spirinolactone. - Avoid nephrotoxins if possible - I reviewed renal US results with normal-appearing kidneys without hydronephrosis or masses. This appears to be new baseline renal function if renal function continues to remain stable Will sign off in the am. - Strict input and output. (2) Hypertensive emergency Current Visit: Yes Status: Acute Plan to address problem: History of HTN emergency Uncontrolled HTN now improving - currently on amlodipine, Coreg , Hydralazine , clonidine patch, Losartan -hold spirinolactone (3) Acidosis Current Visit: No Status: Acute Plan to address problem: Acidosis : controlled. Continue to monitor. (4) Diastolic CHF Current Visit: No Status: Acute Qualifiers: Heart failure chronicity: acute on chronic Qualified Code(s): I50.33 - Acute on chronic diastolic (congestive) heart failure Plan to address problem: Diastolic CHF I reviewed Echocardiogram with EF : 40-45% with impaired disatolic relaxation Ensure HTN control. (5) Hyperkalemia, diminished renal excretion Current Visit: Yes Status: Acute Plan to address problem: Hyperkalemia : improved. - on Losartan and spirinolactone - likely related to medications - Will continue to hold spirinolactone. Subjective Principal diagnosis: UTI Interval history: 62-year-old lady with uncontrolled hypertension and acute kidney injury nephrology following for same She was seen today. has some edema in right leg. She denies any orthopnea PND Denies any fevers or chills no shortness of breath. Objective - Vital Signs Vital signs: Vital Signs - 12hr 09/01/18 09/01/18 09/01/18 04:24 06:59 10:33 Temperature 98.5 F 99.2 F Pulse Rate 58 L 61 73 Respiratory 24 18 Rate Blood Pressure 155/48 153/46 O2 Sat by Pulse 100 99 100 Oximetry 09/01/18 09/01/18 10:35 14:34 Temperature Pulse Rate Respiratory Rate Blood Pressure 153/46 153/46 O2 Sat by Pulse Oximetry - General Appearance General appearance: well-developed EENT: ATNC, PERRL, mucous membranes moist Neck: no JVD Respiratory: Present: Clear to Ascultation Cardiology: regular, S1S2 Gastrointestinal: normal, normoactive bowel sounds Integumentary: no rash Neurologic: alert and oriented x3, CN 3-12 intact Psychiatric: mood/affect appropriate - Lab 08/30/18 05:24 09/01/18 05:03 Most recent lab results Calcium 8.6 mg/dL (8.4-10.2) 09/01/18 05:03 Phosphorus 3.70 mg/dL (2.5-4.5) 08/23/18 09:05 Magnesium 1.90 mg/dL (1.7-2.3) 08/28/18 13:05 - Imaging Kidney/bladder ultrasound: image reviewed (I reviewed renal US with normal sized kidneys no stones or masses. ) Medications & Allergies - Medications Allergies/Adverse Reactions: Allergies No Known Allergies Allergy (Unverified 06/05/17 13:30) Home Medications: Home Medications Medication Instructions Recorded Confirmed Last Taken Type Aspirin 81 mg PO DAILY 11/14/17 08/22/18 Unknown History Megestrol Acetate 800 mg PO DAILY 11/14/17 08/22/18 Unknown History OLANZapine [Zyprexa] 2.5 mg PO DAILY 11/14/17 08/22/18 Unknown History FLUoxetine [PROzac] 40 mg PO QDAY #30 capsule 11/26/17 08/22/18 Unknown Rx Ferrous Sulfate [Ferrous Sulfate 300 mg PO QDAY #30 oral.liqd 11/26/17 08/22/18 Unknown Rx Oral Liq 300 Mg/5 Ml] Pantoprazole [Protonix TAB] 40 mg PO QDAY #30 tablet 11/26/17 08/22/18 Unknown Rx amLODIPine [Norvasc] 10 mg PO DAILY #30 tablet 11/26/17 08/22/18 Unknown Rx Carvedilol [Coreg] 25 mg PO BID tablet 12/06/17 08/22/18 Unknown Rx cloNIDine [Catapres] 0.1 mg PO Q8H tablet 12/06/17 08/22/18 Unknown Rx traMADol [Ultram 50 MG tab] 50 mg PO Q12HR PRN #20 tablet 12/06/17 08/22/18 Unknown Rx Acetaminophen 325 mg PO Q6H PRN 12/22/17 08/22/18 Unknown History Glucagon HCl 1 mg IM ONCE PRN 12/22/17 08/22/18 Unknown History Klor-Con 10 10 meq PO DAILY 12/22/17 08/22/18 Unknown History Lispro Insulin [HumaLOG] See Protocol SC ACHS 12/22/17 08/22/18 Unknown History Simethicone 80 mg PO Q8H PRN 12/22/17 08/22/18 Unknown History levETIRAcetam [Keppra ORAL LIQ] 750 mg PO BID 30 Days bottle 01/04/18 08/22/18 Unknown Rx Active Medications: Generic Name Dose Route Start Last Admin Trade Name Freq PRN Reason Stop Dose Admin Acetaminophen 650 mg 08/22/18 23:50 08/24/18 22:55 Tylenol PO 650 mg Q4H PRN Administration Pain MILD(1-3)/Fever >100.5/CARTER Amlodipine Besylate 10 mg 08/24/18 10:00 09/01/18 10:35 Norvasc PO 10 mg DAILY NASH Administration Lipase/Protease/Amylase 1 each 08/23/18 15:27 Pancreaze 10,500 Unit FEEDTUBE PRN PRN For Clogged Feeding Tube Aspirin 81 mg 08/24/18 10:00 09/01/18 10:32 Baby Aspirin PO 81 mg DAILY NASH Administration Carvedilol 25 mg 08/25/18 22:00 09/01/18 10:35 Coreg PO 25 mg BID NASH Administration Clonidine HCl 0.3 mg 08/24/18 10:00 08/31/18 12:21 Catapres-Tts Patch TD 0.3 mg QWEEK NAHS Administration Dextrose 50 ml 08/22/18 23:50 D50w (25gm) Syringe IV PRN PRN Hypoglycemia Fluoxetine HCl 40 mg 08/24/18 10:00 09/01/18 10:32 Prozac PO 40 mg QDAY NASH Administration Heparin Sodium (Porcine) 5,000 unit 08/23/18 10:00 09/01/18 10:36 Heparin SUB-Q 5,000 unit Q12HR NASH Administration Hydralazine HCl 10 mg 08/24/18 07:32 08/31/18 18:09 Apresoline IV 10 mg Q4HR PRN Administration HTN >155/90 Hydralazine HCl 100 mg 08/28/18 14:00 09/01/18 14:34 Apresoline PO 100 mg Q8HR NASH Administration Insulin Human Isoph/Insulin Regular 15 unit 08/25/18 12:00 09/01/18 09:46 Humulin 70/30 SUB-Q 15 unit BIDDIAB NASH Administration Insulin Human Lispro 0 unit 08/26/18 00:00 09/01/18 12:30 Humalog SUB-Q Not Given Q6HR NASH Protocol Levetiracetam 1,000 mg 08/27/18 10:00 09/01/18 10:32 Keppra PO 1,000 mg BID NASH Administration Lorazepam 1 mg 08/23/18 01:58 Ativan IV Q4H PRN Seizures Losartan Potassium 50 mg 08/27/18 12:06 09/01/18 10:33 Cozaar PO 50 mg QDAY NASH Administration Olanzapine 2.5 mg 08/24/18 10:00 09/01/18 10:36 Zyprexa PO 2.5 mg DAILY NASH Administration Ondansetron HCl 4 mg 08/22/18 23:50 Zofran IV Q8H PRN Nausea And Vomiting Simple Syrup 15 ml 08/23/18 15:27 Simple Syrup FEEDTUBE PRN PRN Hypoglycemia Simple Syrup 30 ml 08/23/18 15:27 Simple Syrup FEEDTUBE PRN PRN Hypoglycemia Sodium Bicarbonate 325 mg 08/23/18 15:27 Sodium Bicarbonate FEEDTUBE PRN PRN For Clogged Feeding Tube Sodium Chloride 10 ml 08/22/18 23:50 09/01/18 10:35 Sodium Chloride Flush Syringe 10 Ml IV 10 ml BID NASH Administration Sodium Chloride 10 ml 08/23/18 00:12 Sodium Chloride Flush Syringe 10 Ml IV PRN PRN LINE FLUSH
[2018-09-01] MEDS: APRESOLINE IV PRN (18:32)
[2018-09-02] MEDS: HumaLOG SUB-Q SCH ×4 (00:01→17:24)
[2018-09-02] MEDS: APRESOLINE PO SCH ×3 (05:51→23:07)
[2018-09-02] MEDS: PROzac PO SCH ×2 (10:16→10:32)
[2018-09-02] MEDS: KEPPRA PO SCH ×2 (10:16→23:06)
[2018-09-02] MEDS: NORVASC PO SCH ×2 (10:16→10:32)
[2018-09-02] MEDS: SODIUM CHLORIDE FLUSH SYRINGE 10 ML IV SCH ×2 (10:17→23:07)
[2018-09-02] MEDS: COREG PO SCH ×3 (10:17→23:06)
[2018-09-02] MEDS: HEPARIN SUB-Q SCH ×2 (10:17→22:59)
[2018-09-02] MEDS: COZAAR PO SCH ×2 (10:17→10:32)
[2018-09-02] MEDS: BABY ASPIRIN PO SCH (10:30)
[2018-09-02] MEDS: APRESOLINE IV PRN (10:34)
[2018-09-02 10:53] LABS: Calcium 8.6 mg/dL (8.4-10.2)
--- NOTE | 2018-09-02 13:58 | Progress Note ---
Assessment and Plan Assessment and plan: 62-year-old female patient in prison resident was admitted through emergency room with witnessed seizures and status epilepticus Patient was also noted to have hypertensive emergency requiring Cardene drip, admitted and stabilized in ICU, transferred to medical floor. Patient was placed on antiepileptic medications, seizure precautions, evaluated by neurology Patient had UTI present on admission positive for ESBL, placed on contact isolation, evaluated by ID, received meropenem for total 4 days, patient's symptoms significantly improved, ID advised to continue contact isolation. Patient did not have any new episodes of seizures, is hemodynamically and clinically stable for discharge However isolation rooms are not available in the prison. Awaiting to return to prison when isolation room is available CXR: Mild cardiomegaly and PULMONARY VASCULAR CONGESTION --Sepsis secondary to UTI /ESBL;present on admission Completed total 4 days of Meropenem,per ID continue contact isolation, awaiting isolation bed at SNF --Metabolic encephalopathy; present on admission; resolved Multifactorial, sepsis, seizures, acute on chronic kidney disease --Hypertensive Emergency: Present on admission. Blood pressures are better controlled today s/p cardine drip, on amlodipine, Coreg, clonidine, losartan, hydralazine spironolactone Held due to Hyperkalmia And when necessary hydralazine, --Status epilepticus: Seizure precautions, continue keppra to 1000mg bid Ativan when necessary, neurology evaluated the patient --CLINT on CKD 3: Vasomotor nephropathy Gentle hydration INITIALLY now discontinued, slow renal improvement noted, continue to monitor renal function, avoid nephrotoxins, creatinine level trending down Nephrology following --Hyperkalemia: correcting, ARB held, will give kayxalate today --Moderate to severe malnutrition: Nutrition supplements Supportive care, nutrition consulted and input noted --Severe debility; physical therapy occupational therapy --Insulin-dependent diabetes; Accu-Chek sliding scale coverage and ADA diet Insulin as needed,hemoglobin A1c 8.3 --History of left AKA: Supportive care --History of endometrial cancer status post hysterectomy,stable --History of major depression; continue current antidepression medications --Dyslipidemia; stable on lipid-lowering medicine, low-cholesterol diet --DVT Prophylaxis; Lovenox Plan of care reviewed with the patient and her nurse Discharge planning. Case management Pt will return to SNF when isolation room is available Patient is medically stable for discharge Case discussed during MDR History Interval history: Patient seen and examined, refusing to take meds but later did. No new complaints Hospitalist Physical - Physical exam Narrative exam: General appearance: Present: no acute distress, well-nourished, obese - EENT Eyes: Present: PERRL, EOM intact - Neck Neck: Present: supple, normal ROM - Respiratory Respiratory effort: normal Respiratory: bilateral: diminished, negative: rales, rhonchi, wheezing - Cardiovascular Rhythm: regular Heart Sounds: Present: S1 & S2 - Extremities Extremities: no ischemia, No edema, abnormal (right AKA) - Abdominal General gastrointestinal: soft, non-tender, non-distended, normal bowel sounds - Integumentary Integumentary: Present: clear, warm - Psychiatric Psychiatric: depressed mood and affect - Neurologic Neurologic: moves all extremities - Constitutional Vitals: Temp Pulse Resp BP Pulse Ox 97.8 F 62 20 154/47 100 09/02/18 05:29 09/02/18 10:32 09/02/18 05:29 09/02/18 10:45 09/02/18 05:29 General appearance: Present: no acute distress, well-nourished, obese Results - Labs CBC & Chem 7: 08/30/18 05:24 09/02/18 10:24 Labs: Laboratory Last Values WBC 8.9 K/mm3 (4.5-11.0) 08/30/18 05:24 RBC 3.33 M/mm3 (3.65-5.03) L 08/30/18 05:24 Hgb 9.2 gm/dl (10.1-14.3) L 08/30/18 05:24 Hct 28.5 % (30.3-42.9) L 08/30/18 05:24 MCV 86 fl (79-97) 08/30/18 05:24 MCH 28 pg (28-32) 08/30/18 05:24 MCHC 32 % (30-34) 08/30/18 05:24 RDW 15.9 % (13.2-15.2) H 08/30/18 05:24 Plt Count 332 K/mm3 (140-440) 08/30/18 05:24 Lymph % (Auto) [employer] 08/24/18 04:37 [facility] % (Auto) [employer] 08/24/18 04:37 Eos % (Auto) [employer] 08/24/18 04:37 Baso % (Auto) [employer] 08/24/18 04:37 Lymph # [employer] 08/24/18 04:37 [facility] # [employer] 08/24/18 04:37 Eos # [employer] 08/24/18 04:37 Baso # [employer] 08/24/18 04:37 Add Manual Diff Complete 08/30/18 05:24 Total Counted 100 08/30/18 05:24 Seg Neutrophils % [employer] 08/24/18 04:37 Seg Neuts % (Manual) 69.0 % (40.0-70.0) 08/30/18 05:24 2.0 % 08/30/18 05:24 14.0 % (13.4-35.0) 08/30/18 05:24 Reactive Lymphs % (Man) 0 % 08/30/18 05:24 13.0 % (0.0-7.3) H 08/30/18 05:24 2.0 % (0.0-4.3) 08/30/18 05:24 0 % (0.0-1.8) 08/30/18 05:24 0 % 08/30/18 05:24 0 % 08/30/18 05:24 0 % 08/30/18 05:24 0 % 08/30/18 05:24 Nucleated RBC % Not Reportable 08/30/18 05:24 Seg Neutrophils # [employer] 08/24/18 04:37 Seg Neutrophils # Man 6.1 K/mm3 (1.8-7.7) 08/30/18 05:24 Band Neutrophils # 0.2 K/mm3 08/30/18 05:24 1.2 K/mm3 (1.2-5.4) 08/30/18 05:24 Abs React Lymphs (Man) 0.0 K/mm3 08/30/18 05:24 1.2 K/mm3 (0.0-0.8) H 08/30/18 05:24 0.2 K/mm3 (0.0-0.4) 08/30/18 05:24 0.0 K/mm3 (0.0-0.1) 08/30/18 05:24 0.0 K/mm3 08/30/18 05:24 0.0 K/mm3 08/30/18 05:24 0.0 K/mm3 08/30/18 05:24 Blast Cells # 0.0 K/mm3 08/30/18 05:24 WBC Morphology Not Reportable 08/30/18 05:24 Hypersegmented Neuts Not Reportable 08/30/18 05:24 Hyposegmented Neuts Not Reportable 08/30/18 05:24 Hypogranular Neuts Not Reportable 08/30/18 05:24 Not Reportable 08/30/18 05:24 Not Reportable 08/30/18 05:24 Not Reportable 08/30/18 05:24 Not Reportable 08/30/18 05:24 Not Reportable 08/30/18 05:24 Not Reportable 08/30/18 05:24 Consistent w auto 08/30/18 05:24 Not Reportable 08/30/18 05:24 Plt Clumps, EDTA Not Reportable 08/30/18 05:24 Not Reportable 08/30/18 05:24 Not Reportable 08/30/18 05:24 Not Reportable 08/30/18 05:24 Plt Morphology Comment Not Reportable 08/30/18 05:24 RBC Morphology Not Reportable 08/30/18 05:24 Dimorphic RBCs Not Reportable 08/30/18 05:24 Not Reportable 08/30/18 05:24 Not Reportable 08/30/18 05:24 Not Reportable 08/30/18 05:24 Not Reportable 08/30/18 05:24 Not Reportable 08/30/18 05:24 Few 08/30/18 05:24 Not Reportable 08/30/18 05:24 Not Reportable 08/30/18 05:24 Not Reportable 08/30/18 05:24 Not Reportable 08/30/18 05:24 Not Reportable 08/30/18 05:24 Not Reportable 08/30/18 05:24 Not Reportable 08/30/18 05:24 Not Reportable 08/30/18 05:24 Not Reportable 08/30/18 05:24 Not Reportable 08/30/18 05:24 Not Reportable 08/30/18 05:24 Not Reportable 08/30/18 05:24 Not Reportable 08/30/18 05:24 Acanthocytes (Spur) Not Reportable 08/30/18 05:24 Rouleaux Not Reportable 08/30/18 05:24 Not Reportable 08/30/18 05:24 Not Reportable 08/30/18 05:24 Not Reportable 08/30/18 05:24 Not Reportable 08/30/18 05:24 Hem Pathologist Commnt No 08/30/18 05:24 Sodium 139 mmol/L (137-145) 09/02/18 10:24 Potassium 5.2 mmol/L (3.6-5.0) H 09/02/18 10:24 Chloride 104.9 mmol/L (98-107) 09/02/18 10:24 Carbon Dioxide 25 mmol/L (22-30) 09/02/18 10:24 14 mmol/L 09/02/18 10:24 BUN 33 mg/dL (7-17) H 09/02/18 10:24 2.0 mg/dL (0.7-1.2) H 09/02/18 10:24 Estimated GFR 30 ml/min 09/02/18 10:24 17 % 09/02/18 10:24 Glucose 111 mg/dL (65-100) H 09/02/18 10:24 POC Glucose 106 (70-105) H 09/02/18 11:34 8.3 % (4-6) H 08/23/18 01:03 313 Mosm/kg 08/23/18 10:10 Lactic Acid 0.80 mmol/L (0.7-2.0) 08/23/18 10:10 7.7 mg/dL (3.5-7.6) H 08/23/18 09:05 Calcium 8.6 mg/dL (8.4-10.2) 09/02/18 10:24 Phosphorus 3.70 mg/dL (2.5-4.5) 08/23/18 09:05 Magnesium 1.90 mg/dL (1.7-2.3) 08/28/18 13:05 0.30 mg/dL (0.1-1.2) 08/23/18 09:05 AST 19 units/L (5-40) 08/23/18 09:05 ALT 7 units/L (7-56) 08/23/18 09:05 93 units/L (35-129) 08/23/18 09:05 612 units/L (30-135) H 08/23/18 09:05 7.4 g/dL (6.3-8.2) 08/23/18 09:05 3.1 g/dL (3.9-5) L 08/23/18 09:05 0.7 % 08/23/18 09:05 Triglycerides 160 mg/dL (2-149) H 08/23/18 04:08 Cholesterol 325 mg/dL (50-199) H 08/23/18 04:08 248 mg/dL (50-130) H 08/23/18 04:08 60 mg/dL (40-59) H 08/23/18 04:08 5.41 % 08/23/18 04:08 0.08 ng/mL/h (0.25-5.82) L 08/23/18 10:10 3 ng/dL () 08/23/18 10:10 Aldosterone/Renin Dir 37.5 Ratio (0.9-28.9) H 08/23/18 10:10 Gracia (Yellow) 08/22/18 19:45 Cloudy (Clear) 08/22/18 19:45 6.0 (5.0-7.0) 08/22/18 19:45 Ur Specific [place]ford 1.024 (1.003-1.030) 08/22/18 19:45 >500 mg/dL (Negative) 08/22/18 19:45 150 mg/dL (Negative) 08/22/18 19:45 Neg mg/dL (Negative) 08/22/18 19:45 Sm (Negative) 08/22/18 19:45 Neg (Negative) 08/22/18 19:45 Neg (Negative) 08/22/18 19:45 < 2.0 mg/dL (<2.0) 08/22/18 19:45 Ur Leukocyte Esterase Tr (Negative) 08/22/18 19:45 42.0 /HPF (0.0-6.0) H 08/22/18 19:45 11.0 /HPF (0.0-6.0) 08/22/18 19:45 U Epithel Cells (Auto) 4.0 /HPF (0-13.0) 08/22/18 19:45 4+ /HPF (Negative) 08/22/18 19:45 Hyaline Casts 7 /LPF 08/22/18 19:45 1+ /HPF 08/22/18 19:45 Active Medications - Current Medications Current Medications: Generic Name Dose Route Start Last Admin Trade Name Tobin PRN Reason Stop Dose Admin Acetaminophen 650 mg 08/22/18 23:50 08/24/18 22:55 Tylenol PO 650 mg Q4H PRN Administration Pain MILD(1-3)/Fever >100.5/CARTER Amlodipine Besylate 10 mg 08/24/18 10:00 09/02/18 10:32 Norvasc PO Not Given DAILY [facility] Lipase/Protease/Amylase 1 each 08/23/18 15:[address] 10,500 Unit FEEDTUBE PRN PRN For Clogged Feeding Tube Aspirin 81 mg 08/24/18 10:00 09/02/18 10:30 Baby Aspirin PO Not Given DAILY [facility] Carvedilol 25 mg 08/25/18 22:00 09/02/18 10:45 Coreg PO Not Given BID [facility] Clonidine HCl 0.3 mg 08/24/18 10:00 08/31/18 12:21 Catapres-Tts Patch TD 0.3 mg QWEEK [facility] Administration Dextrose 50 ml 08/22/18 23:50 D50w (25gm) Syringe IV PRN PRN Hypoglycemia Fluoxetine HCl 40 mg 08/24/18 10:00 09/02/18 10:32 Prozac PO Not Given QDAY [facility] Heparin Sodium (Porcine) 5,000 unit 08/23/18 10:00 09/02/18 10:17 Heparin SUB-Q 5,000 unit Q12HR [facility] Administration Hydralazine HCl 10 mg 08/24/18 07:32 09/02/18 10:34 Apresoline IV 10 mg Q4HR PRN Administration HTN >155/90 Hydralazine HCl 100 mg 08/28/18 14:00 09/02/18 05:51 Apresoline PO 100 mg Q8HR ANSH Administration Insulin Human Isoph/Insulin Regular 15 unit 08/25/18 12:00 09/02/18 09:03 Humulin 70/30 SUB-Q 15 unit BIDDIAB NASH Administration Insulin Human Lispro 0 unit 08/26/18 00:00 09/02/18 11:50 Humalog SUB-Q Not Given Q6HR [facility] Protocol Levetiracetam 1,000 mg 08/27/18 10:00 09/02/18 10:16 Keppra PO 1,000 mg BID [facility] Administration Lorazepam 1 mg 08/23/18 01:58 Ativan IV Q4H PRN Seizures Losartan Potassium 50 mg 08/27/18 12:06 09/02/18 10:32 Cozaar PO Not Given QDAY [facility] Olanzapine 2.5 mg 08/24/18 10:00 09/02/18 10:32 Zyprexa PO Not Given DAILY [facility] Ondansetron HCl 4 mg 08/22/18 23:50 Zofran IV Q8H PRN Nausea And Vomiting Simple Syrup 15 ml 08/23/18 15:27 Simple Syrup FEEDTUBE PRN PRN Hypoglycemia Simple Syrup 30 ml 08/23/18 15:27 Simple Syrup FEEDTUBE PRN PRN Hypoglycemia Sodium Bicarbonate 325 mg 08/23/18 15:27 Sodium Bicarbonate FEEDTUBE PRN PRN For Clogged Feeding Tube Sodium Chloride 10 ml 08/22/18 23:50 09/02/18 10:17 Sodium Chloride Flush Syringe 10 Ml IV 10 ml BID [facility] Administration Sodium Chloride 10 ml 08/23/18 00:12 Sodium Chloride Flush Syringe 10 Ml IV PRN PRN LINE FLUSH Nutrition/Malnutrition Assess - Dietary Evaluation Nutrition/Malnutrition Findings: Nutrition Notes Start: 08/23/18 15:56 Freq: Status: Active Protocol: Document 08/31/18 18:10 RM (Rec: 08/31/18 18:16 RM [id number]) Nutrition Notes Initial or Follow up Reassessment Current Diagnosis Acute Kidney Injury,CKD(stage I-IV),Coronary Artery Disease, Diabetes,Sepsis,Hypertension, Hyperlipidemia Other Pertinent Diagnosis PVD, Hx endometrial CA, Seizures, AKA Current Diet Cardiac/Consistent CHO,Mech soft w/Glucerna Labs/Tests A1c 8.3 Pertinent Medications Reviewed Height 5 ft Weight 62.9 kg [facility] Body Weight (kg) 45.45 BMI 27.1 Weight change and time frame [facility] Subjective/Other Information Pt confused at time of visit. Tech stated that pt ate 50% of her meals and drank the Glucerna. Percent of energy/protein needs met: 91%/93% Burn Absent Trauma Absent #1 Nutrition Diagnosis Inadequate oral intake As Evidenced by Signs and Symptoms pt meeting 91% of calorie and 93% of protein needs Diagnosis Progress(for reassessment Resolved documentation) Is patient on ventilator? No Is Patient Ambulatory and/or Out of Bed No REE-([facility]-confined to bed) 1325.071 Calculation Used for Recommendations Kcal/kg Additional Notes Protein Needs: 54-67g (0.8-1g/ kg 67kg adjBW) Fluid Needs: 1 ml/kcal Nutrition Intervention Change Diet Order: Cardiac/Consistent CHO Add Supplement/Snack (indicate name/kcal Glucerna 1 daily /protein ) Provides kCal: 220 Provides Protein (gm) 10 Goal #1 Continue to meet at least 75% of calorie and protein needs via PO and ONS intakes Anticipated Discharge Needs: Unable to determine at this time Follow-Up By: 09/05/18 Additional Comments Follow for PO and ONS intakes, DM diet education
--- NOTE | 2018-09-02 14:25 | Progress Note ---
Assessment and Plan - Patient Problems (1) Acute kidney injury superimposed on CKD Current Visit: No Status: Acute Plan to address problem: Acuter kidney injury superimposed on CKD baseline creatinine : 1.4mg/dl , December 2017 current creatinine : 2.0mg/dl - was on on Losartan and spirinolactone - Held spirinolactone on 09/01 - Will hold Losartan as well. - Avoid nephrotoxins if possible - I reviewed renal US results with normal-appearing kidneys without hydronephrosis or masses. - Will follow with you. - Strict input and output. (2) Hypertensive emergency Current Visit: Yes Status: Acute Plan to address problem: History of HTN emergency Uncontrolled HTN now improving - currently on amlodipine, Coreg , Hydralazine , clonidine patch, -hold spirinolactone and Losartan. (3) Acidosis Current Visit: No Status: Acute Plan to address problem: Acidosis : controlled. Continue to monitor. (4) Diastolic CHF Current Visit: No Status: Acute Qualifiers: Heart failure chronicity: acute on chronic Qualified Code(s): I50.33 - Acute on chronic diastolic (congestive) heart failure Plan to address problem: Diastolic CHF I reviewed Echocardiogram with EF : 40-45% with impaired disatolic relaxation Ensure HTN control. (5) Hyperkalemia, diminished renal excretion Current Visit: Yes Status: Acute Plan to address problem: Hyperkalemia : improved. - on Losartan and spirinolactone - likely related to medications - Will hold Both Losartan and spirinolactone. Subjective Principal diagnosis: UTI Interval history: 62-year-old lady with uncontrolled hypertension and acute kidney injury nephrology following for same She was seen today. has some edema in right leg. She denies any orthopnea PND Denies any fevers or chills no shortness of breath. Objective - Vital Signs Vital signs: Vital Signs - 12hr 09/02/18 09/02/18 09/02/18 05:29 10:32 10:34 Temperature 97.8 F Pulse Rate 62 62 Respiratory 20 Rate Blood Pressure 160/75 154/47 154/47 O2 Sat by Pulse 100 Oximetry 09/02/18 09/02/18 10:45 14:20 Temperature Pulse Rate Respiratory Rate Blood Pressure 154/47 154/47 O2 Sat by Pulse Oximetry - General Appearance General appearance: well-developed, well-nourished EENT: ATNC, PERRL, mucous membranes moist Neck: no JVD Respiratory: Present: Clear to Ascultation Cardiology: regular, S1S2 Gastrointestinal: normal, normoactive bowel sounds Integumentary: no rash Neurologic: alert and oriented x3, CN 3-12 intact Musculoskeletal: other (left above knee amputation swelling noted in right leg. ) Psychiatric: depressed - Lab 08/30/18 05:24 09/02/18 10:24 Most recent lab results Calcium 8.6 mg/dL (8.4-10.2) 09/02/18 10:24 Phosphorus 3.70 mg/dL (2.5-4.5) 08/23/18 09:05 Magnesium 1.90 mg/dL (1.7-2.3) 08/28/18 13:05 - Imaging Chest x-ray: image reviewed (I reviewed CXR with cardiomegaly without overt edema. ) Medications & Allergies - Medications Allergies/Adverse Reactions: Allergies No Known Allergies Allergy (Unverified 06/05/17 13:30) Home Medications: Home Medications Medication Instructions Recorded Confirmed Last Taken Type Aspirin 81 mg PO DAILY 11/14/17 08/22/18 Unknown History Megestrol Acetate 800 mg PO DAILY 11/14/17 08/22/18 Unknown History OLANZapine [Zyprexa] 2.5 mg PO DAILY 11/14/17 08/22/18 Unknown History FLUoxetine [PROzac] 40 mg PO QDAY #30 capsule 11/26/17 08/22/18 Unknown Rx Ferrous Sulfate [Ferrous Sulfate 300 mg PO QDAY #30 oral.liqd 11/26/17 08/22/18 Unknown Rx Oral Liq 300 Mg/5 Ml] Pantoprazole [Protonix TAB] 40 mg PO QDAY #30 tablet 11/26/17 08/22/18 Unknown Rx amLODIPine [Norvasc] 10 mg PO DAILY #30 tablet 11/26/17 08/22/18 Unknown Rx Carvedilol [Coreg] 25 mg PO BID tablet 12/06/17 08/22/18 Unknown Rx cloNIDine [Catapres] 0.1 mg PO Q8H tablet 12/06/17 08/22/18 Unknown Rx traMADol [Ultram 50 MG tab] 50 mg PO Q12HR PRN #20 tablet 12/06/17 08/22/18 Unknown Rx Acetaminophen 325 mg PO Q6H PRN 12/22/17 08/22/18 Unknown History Glucagon HCl 1 mg IM ONCE PRN 12/22/17 08/22/18 Unknown History Klor-Con 10 10 meq PO DAILY 12/22/17 08/22/18 Unknown History Lispro Insulin [HumaLOG] See Protocol SC ACHS 12/22/17 08/22/18 Unknown History Simethicone 80 mg PO Q8H PRN 12/22/17 08/22/18 Unknown History levETIRAcetam [Keppra ORAL LIQ] 750 mg PO BID 30 Days bottle 01/04/18 08/22/18 Unknown Rx Active Medications: Generic Name Dose Route Start Last Admin Trade Name Freq PRN Reason Stop Dose Admin Acetaminophen 650 mg 08/22/18 23:50 08/24/18 22:55 Tylenol PO 650 mg Q4H PRN Administration Pain MILD(1-3)/Fever >100.5/CARTER Amlodipine Besylate 10 mg 08/24/18 10:00 09/02/18 10:32 Norvasc PO Not Given DAILY [facility] Lipase/Protease/Amylase 1 each 08/23/18 15:[address] 10,500 Unit FEEDTUBE PRN PRN For Clogged Feeding Tube Aspirin 81 mg 08/24/18 10:00 09/02/18 10:30 Baby Aspirin PO Not Given DAILY [facility] Carvedilol 25 mg 08/25/18 22:00 09/02/18 10:45 Coreg PO Not Given BID [facility] Clonidine HCl 0.3 mg 08/24/18 10:00 08/31/18 12:21 Catapres-Tts Patch TD 0.3 mg QWEEK [facility] Administration Dextrose 50 ml 08/22/18 23:50 D50w (25gm) Syringe IV PRN PRN Hypoglycemia Fluoxetine HCl 40 mg 08/24/18 10:00 09/02/18 10:32 Prozac PO Not Given QDAY [facility] Heparin Sodium (Porcine) 5,000 unit 08/23/18 10:00 09/02/18 10:17 Heparin SUB-Q 5,000 unit Q12HR [facility] Administration Hydralazine HCl 10 mg 08/24/18 07:32 09/02/18 10:34 Apresoline IV 10 mg Q4HR PRN Administration HTN >155/90 Hydralazine HCl 100 mg 08/28/18 14:00 09/02/18 14:20 Apresoline PO 100 mg Q8HR [facility] Administration Insulin Human Isoph/Insulin Regular 15 unit 08/25/18 12:00 09/02/18 09:03 Humulin 70/30 SUB-Q 15 unit BIDDIAB [facility] Administration Insulin Human Lispro 0 unit 08/26/18 00:00 09/02/18 11:50 Humalog SUB-Q Not Given Q6HR [facility] Protocol Levetiracetam 1,000 mg 08/27/18 10:00 09/02/18 10:16 Keppra PO 1,000 mg BID [facility] Administration Lorazepam 1 mg 08/23/18 01:58 Ativan IV Q4H PRN Seizures Olanzapine 2.5 mg 08/24/18 10:00 09/02/18 10:32 Zyprexa PO Not Given DAILY [facility] Ondansetron HCl 4 mg 08/22/18 23:50 Zofran IV Q8H PRN Nausea And Vomiting Simple Syrup 15 ml 08/23/18 15:27 Simple Syrup FEEDTUBE PRN PRN Hypoglycemia Simple Syrup 30 ml 08/23/18 15:27 Simple Syrup FEEDTUBE PRN PRN Hypoglycemia Sodium Bicarbonate 325 mg 08/23/18 15:27 Sodium Bicarbonate FEEDTUBE PRN PRN For Clogged Feeding Tube Sodium Chloride 10 ml 08/22/18 23:50 09/02/18 10:17 Sodium Chloride Flush Syringe 10 Ml IV 10 ml BID [facility] Administration Sodium Chloride 10 ml 08/23/18 00:12 Sodium Chloride Flush Syringe 10 Ml IV PRN PRN LINE FLUSH
[2018-09-03] MEDS: HumaLOG SUB-Q SCH ×4 (00:37→18:52)
[2018-09-03] MEDS: APRESOLINE PO SCH ×4 (06:00→22:16)
--- NOTE | 2018-09-03 09:50 | Progress Note ---
Assessment and Plan Assessment and plan: 62-year-old female patient in correction resident was admitted through emergency room with witnessed seizures and status epilepticus Patient was also noted to have hypertensive emergency requiring Cardene drip, admitted and stabilized in ICU, transferred to medical floor. Patient was placed on antiepileptic medications, seizure precautions, evaluated by neurology Patient had UTI present on admission positive for ESBL, placed on contact isolation, evaluated by ID, received meropenem for total 4 days, patient's symptoms significantly improved, ID advised to continue contact isolation. Patient did not have any new episodes of seizures, is hemodynamically and clinically stable for discharge However isolation rooms are not available in the correction. Awaiting to return to correction when isolation room is available CXR: Mild cardiomegaly and PULMONARY VASCULAR CONGESTION --Sepsis secondary to UTI /ESBL;present on admission Completed total 4 days of Meropenem,per ID continue contact isolation, awaiting isolation bed at SNF --Metabolic encephalopathy; present on admission; resolved Multifactorial, sepsis, seizures, acute on chronic kidney disease --Hypertensive Emergency: Present on admission. Blood pressures are better controlled today s/p cardine drip, on amlodipine, Coreg, clonidine, losartan, hydralazine spironolactone Held due to Hyperkalmia And when necessary hydralazine, --Status epilepticus: Seizure precautions, continue keppra to 1000mg bid Ativan when necessary, neurology evaluated the patient --CLINT on CKD 3: Vasomotor nephropathy Gentle hydration INITIALLY now discontinued, slow renal improvement noted, continue to monitor renal function, avoid nephrotoxins, creatinine level trending down Nephrology following --Hyperkalemia: correcting, ARB held, Recheck K in am --Moderate to severe malnutrition: Nutrition supplements Supportive care, nutrition consulted and input noted --Severe debility; physical therapy occupational therapy --Insulin-dependent diabetes; Accu-Chek sliding scale coverage and ADA diet Insulin as needed,hemoglobin A1c 8.3 --History of left AKA: Supportive care --History of endometrial cancer status post hysterectomy,stable --History of major depression; continue current antidepression medications --Dyslipidemia; stable on lipid-lowering medicine, low-cholesterol diet --DVT Prophylaxis; Lovenox Plan of care reviewed with the patient and her nurse Discharge planning. Case management Pt will return to SNF when isolation room is available Patient is medically stable for discharge Case discussed during MDR History Interval history: Patient seen and examined, No new complaints, low grade temp noted earlier today. Hospitalist Physical - Physical exam Narrative exam: General appearance: Present: no acute distress, well-nourished, obese. No change - EENT Eyes: Present: PERRL, EOM intact - Neck Neck: Present: supple, normal ROM - Respiratory Respiratory effort: normal Respiratory: bilateral: diminished, negative: rales, rhonchi, wheezing - Cardiovascular Rhythm: regular Heart Sounds: Present: S1 & S2 - Extremities Extremities: no ischemia, No edema, abnormal (right AKA) - Abdominal General gastrointestinal: soft, non-tender, non-distended, normal bowel sounds - Integumentary Integumentary: Present: clear, warm - Psychiatric Psychiatric: depressed mood and affect - Neurologic Neurologic: moves all extremities - Constitutional Vitals: Temp Pulse Resp BP Pulse Ox 98.6 F 57 L 20 151/47 100 09/03/18 04:33 09/03/18 04:33 09/03/18 04:33 09/03/18 04:33 09/03/18 04:33 General appearance: Present: no acute distress, well-nourished, obese Results - Labs CBC & Chem 7: 08/30/18 05:24 09/02/18 10:24 Labs: Laboratory Last Values WBC 8.9 K/mm3 (4.5-11.0) 08/30/18 05:24 RBC 3.33 M/mm3 (3.65-5.03) L 08/30/18 05:24 Hgb 9.2 gm/dl (10.1-14.3) L 08/30/18 05:24 Hct 28.5 % (30.3-42.9) L 08/30/18 05:24 MCV 86 fl (79-97) 08/30/18 05:24 MCH 28 pg (28-32) 08/30/18 05:24 MCHC 32 % (30-34) 08/30/18 05:24 RDW 15.9 % (13.2-15.2) H 08/30/18 05:24 Plt Count 332 K/mm3 (140-440) 08/30/18 05:24 Lymph % (Auto) [employer] 08/24/18 04:37 [place] % (Auto) [employer] 08/24/18 04:37 Eos % (Auto) [employer] 08/24/18 04:37 Baso % (Auto) [employer] 08/24/18 04:37 Lymph # [employer] 08/24/18 04:37 [place] # [employer] 08/24/18 04:37 Eos # [employer] 08/24/18 04:37 Baso # [employer] 08/24/18 04:37 Add Manual Diff Complete 08/30/18 05:24 Total Counted 100 08/30/18 05:24 Seg Neutrophils % [employer] 08/24/18 04:37 Seg Neuts % (Manual) 69.0 % (40.0-70.0) 08/30/18 05:24 2.0 % 08/30/18 05:24 14.0 % (13.4-35.0) 08/30/18 05:24 Reactive Lymphs % (Man) 0 % 08/30/18 05:24 13.0 % (0.0-7.3) H 08/30/18 05:24 2.0 % (0.0-4.3) 08/30/18 05:24 0 % (0.0-1.8) 08/30/18 05:24 0 % 08/30/18 05:24 0 % 08/30/18 05:24 0 % 08/30/18 05:24 0 % 08/30/18 05:24 Nucleated RBC % Not Reportable 08/30/18 05:24 Seg Neutrophils # [employer] 08/24/18 04:37 Seg Neutrophils # Man 6.1 K/mm3 (1.8-7.7) 08/30/18 05:24 Band Neutrophils # 0.2 K/mm3 08/30/18 05:24 1.2 K/mm3 (1.2-5.4) 08/30/18 05:24 Abs React Lymphs (Man) 0.0 K/mm3 08/30/18 05:24 1.2 K/mm3 (0.0-0.8) H 08/30/18 05:24 0.2 K/mm3 (0.0-0.4) 08/30/18 05:24 0.0 K/mm3 (0.0-0.1) 08/30/18 05:24 0.0 K/mm3 08/30/18 05:24 0.0 K/mm3 08/30/18 05:24 0.0 K/mm3 08/30/18 05:24 Blast Cells # 0.0 K/mm3 08/30/18 05:24 WBC Morphology Not Reportable 08/30/18 05:24 Hypersegmented Neuts Not Reportable 08/30/18 05:24 Hyposegmented Neuts Not Reportable 08/30/18 05:24 Hypogranular Neuts Not Reportable 08/30/18 05:24 Not Reportable 08/30/18 05:24 Not Reportable 08/30/18 05:24 Not Reportable 08/30/18 05:24 Not Reportable 08/30/18 05:24 Not Reportable 08/30/18 05:24 Not Reportable 08/30/18 05:24 Consistent w auto 08/30/18 05:24 Not Reportable 08/30/18 05:24 Plt Clumps, EDTA Not Reportable 08/30/18 05:24 Not Reportable 08/30/18 05:24 Not Reportable 08/30/18 05:24 Not Reportable 08/30/18 05:24 Plt Morphology Comment Not Reportable 08/30/18 05:24 RBC Morphology Not Reportable 08/30/18 05:24 Dimorphic RBCs Not Reportable 08/30/18 05:24 Not Reportable 08/30/18 05:24 Not Reportable 08/30/18 05:24 Not Reportable 08/30/18 05:24 Not Reportable 08/30/18 05:24 Not Reportable 08/30/18 05:24 Few 08/30/18 05:24 Not Reportable 08/30/18 05:24 Not Reportable 08/30/18 05:24 Not Reportable 08/30/18 05:24 Not Reportable 08/30/18 05:24 Not Reportable 08/30/18 05:24 Not Reportable 08/30/18 05:24 Not Reportable 08/30/18 05:24 Not Reportable 08/30/18 05:24 Not Reportable 08/30/18 05:24 Not Reportable 08/30/18 05:24 Not Reportable 08/30/18 05:24 Not Reportable 08/30/18 05:24 Not Reportable 08/30/18 05:24 Acanthocytes (Spur) Not Reportable 08/30/18 05:24 Rouleaux Not Reportable 08/30/18 05:24 Not Reportable 08/30/18 05:24 Not Reportable 08/30/18 05:24 Not Reportable 08/30/18 05:24 Not Reportable 08/30/18 05:24 Hem Pathologist Commnt No 08/30/18 05:24 Sodium 139 mmol/L (137-145) 09/02/18 10:24 Potassium 5.2 mmol/L (3.6-5.0) H 09/02/18 10:24 Chloride 104.9 mmol/L (98-107) 09/02/18 10:24 Carbon Dioxide 25 mmol/L (22-30) 09/02/18 10:24 14 mmol/L 09/02/18 10:24 BUN 33 mg/dL (7-17) H 09/02/18 10:24 2.0 mg/dL (0.7-1.2) H 09/02/18 10:24 Estimated GFR 30 ml/min 09/02/18 10:24 17 % 09/02/18 10:24 Glucose 111 mg/dL (65-100) H 09/02/18 10:24 POC Glucose 155 (70-105) H 09/03/18 05:28 8.3 % (4-6) H 08/23/18 01:03 313 Mosm/kg 08/23/18 10:10 Lactic Acid 0.80 mmol/L (0.7-2.0) 08/23/18 10:10 7.7 mg/dL (3.5-7.6) H 08/23/18 09:05 Calcium 8.6 mg/dL (8.4-10.2) 09/02/18 10:24 Phosphorus 3.70 mg/dL (2.5-4.5) 08/23/18 09:05 Magnesium 1.90 mg/dL (1.7-2.3) 08/28/18 13:05 0.30 mg/dL (0.1-1.2) 08/23/18 09:05 AST 19 units/L (5-40) 08/23/18 09:05 ALT 7 units/L (7-56) 08/23/18 09:05 93 units/L (35-129) 08/23/18 09:05 612 units/L (30-135) H 08/23/18 09:05 7.4 g/dL (6.3-8.2) 08/23/18 09:05 3.1 g/dL (3.9-5) L 08/23/18 09:05 0.7 % 08/23/18 09:05 Triglycerides 160 mg/dL (2-149) H 08/23/18 04:08 Cholesterol 325 mg/dL (50-199) H 08/23/18 04:08 248 mg/dL (50-130) H 08/23/18 04:08 60 mg/dL (40-59) H 08/23/18 04:08 5.41 % 08/23/18 04:08 0.08 ng/mL/h (0.25-5.82) L 08/23/18 10:10 3 ng/dL () 08/23/18 10:10 Aldosterone/Renin Dir 37.5 Ratio (0.9-28.9) H 08/23/18 10:10 Gracia (Yellow) 08/22/18 19:45 Cloudy (Clear) 08/22/18 19:45 6.0 (5.0-7.0) 08/22/18 19:45 Ur Specific Peterson 1.024 (1.003-1.030) 08/22/18 19:45 >500 mg/dL (Negative) 08/22/18 19:45 150 mg/dL (Negative) 08/22/18 19:45 Neg mg/dL (Negative) 08/22/18 19:45 Sm (Negative) 08/22/18 19:45 Neg (Negative) 08/22/18 19:45 Neg (Negative) 08/22/18 19:45 < 2.0 mg/dL (<2.0) 08/22/18 19:45 Ur Leukocyte Esterase Tr (Negative) 08/22/18 19:45 42.0 /HPF (0.0-6.0) H 08/22/18 19:45 11.0 /HPF (0.0-6.0) 08/22/18 19:45 U Epithel Cells (Auto) 4.0 /HPF (0-13.0) 08/22/18 19:45 4+ /HPF (Negative) 08/22/18 19:45 Hyaline Casts 7 /LPF 08/22/18 19:45 1+ /HPF 08/22/18 19:45 Active Medications - Current Medications Current Medications: Generic Name Dose Route Start Last Admin Trade Name Tobin PRN Reason Stop Dose Admin Acetaminophen 650 mg 08/22/18 23:50 08/24/18 22:55 Tylenol PO 650 mg Q4H PRN Administration Pain MILD(1-3)/Fever >100.5/CARTER Amlodipine Besylate 10 mg 08/24/18 10:00 09/02/18 10:32 Norvasc PO Not Given DAILY [facility] Lipase/Protease/Amylase 1 each 08/23/18 15:27 Pancreaze 10,500 Unit FEEDTUBE PRN PRN For Clogged Feeding Tube Aspirin 81 mg 08/24/18 10:00 09/02/18 10:30 Baby Aspirin PO Not Given DAILY [facility] Carvedilol 25 mg 08/25/18 22:00 09/02/18 23:06 Coreg PO 25 mg BID NASH Administration Clonidine HCl 0.3 mg 08/24/18 10:00 08/31/18 12:21 Catapres-Tts Patch TD 0.3 mg QWEEK NASH Administration Dextrose 50 ml 08/22/18 23:50 D50w (25gm) Syringe IV PRN PRN Hypoglycemia Fluoxetine HCl 40 mg 08/24/18 10:00 09/02/18 10:32 Prozac PO Not Given QDAY [facility] Heparin Sodium (Porcine) 5,000 unit 08/23/18 10:00 09/02/18 22:59 Heparin SUB-Q 5,000 unit Q12HR NASH Administration Hydralazine HCl 10 mg 08/24/18 07:32 09/02/18 10:34 Apresoline IV 10 mg Q4HR PRN Administration HTN >155/90 Hydralazine HCl 100 mg 08/28/18 14:00 09/03/18 06:07 Apresoline PO Not Given Q8HR [facility] Insulin Human Isoph/Insulin Regular 15 unit 08/25/18 12:00 09/02/18 17:25 Humulin 70/30 SUB-Q 15 unit BIDDIAB NASH Administration Insulin Human Lispro 0 unit 08/26/18 00:00 09/03/18 05:34 Humalog SUB-Q Not Given Q6HR [facility] Protocol Levetiracetam 1,000 mg 08/27/18 10:00 09/02/18 23:06 Keppra PO 1,000 mg BID NASH Administration Lorazepam 1 mg 08/23/18 01:58 Ativan IV Q4H PRN Seizures Olanzapine 2.5 mg 08/24/18 10:00 09/02/18 10:32 Zyprexa PO Not Given DAILY [facility] Ondansetron HCl 4 mg 08/22/18 23:50 Zofran IV Q8H PRN Nausea And Vomiting Simple Syrup 15 ml 08/23/18 15:27 Simple Syrup FEEDTUBE PRN PRN Hypoglycemia Simple Syrup 30 ml 08/23/18 15:27 Simple Syrup FEEDTUBE PRN PRN Hypoglycemia Sodium Bicarbonate 325 mg 08/23/18 15:27 Sodium Bicarbonate FEEDTUBE PRN PRN For Clogged Feeding Tube Sodium Chloride 10 ml 08/22/18 23:50 09/02/18 23:07 Sodium Chloride Flush Syringe 10 Ml IV 10 ml BID NASH Administration Sodium Chloride 10 ml 08/23/18 00:12 Sodium Chloride Flush Syringe 10 Ml IV PRN PRN LINE FLUSH Nutrition/Malnutrition Assess - Dietary Evaluation Nutrition/Malnutrition Findings: Nutrition Notes Start: 08/23/18 15:56 Freq: Status: Active Protocol: Document 08/31/18 18:10 RM (Rec: 08/31/18 18:16 RM [id number]) Nutrition Notes Initial or Follow up Reassessment Current Diagnosis Acute Kidney Injury,CKD(stage I-IV),Coronary Artery Disease, Diabetes,Sepsis,Hypertension, Hyperlipidemia Other Pertinent Diagnosis PVD, Hx endometrial CA, Seizures, AKA Current Diet Cardiac/Consistent CHO,Mech soft w/Glucerna Labs/Tests A1c 8.3 Pertinent Medications Reviewed Height 5 ft Weight 62.9 kg Allen Body Weight (kg) 45.45 BMI 27.1 Weight change and time frame Current wt obtain from [facility] Subjective/Other Information Pt confused at time of visit. Tech stated that pt ate 50% of her meals and drank the Glucerna. Percent of energy/protein needs met: 91%/93% Burn Absent Trauma Absent #1 Nutrition Diagnosis Inadequate oral intake As Evidenced by Signs and Symptoms pt meeting 91% of calorie and 93% of protein needs Diagnosis Progress(for reassessment Resolved documentation) Is patient on ventilator? No Is Patient Ambulatory and/or Out of Bed No REE-([place]-St. Jeor-confined to bed) 4035.983 Calculation Used for Recommendations Kcal/kg Additional Notes Protein Needs: 54-67g (0.8-1g/ kg 67kg adjBW) Fluid Needs: 1 ml/kcal Nutrition Intervention Change Diet Order: Cardiac/Consistent CHO Add Supplement/Snack (indicate name/kcal Glucerna 1 daily /protein ) Provides kCal: 220 Provides Protein (gm) 10 Goal #1 Continue to meet at least 75% of calorie and protein needs via PO and ONS intakes Anticipated Discharge Needs: Unable to determine at this time Follow-Up By: 09/05/18 Additional Comments Follow for PO and ONS intakes, DM diet education
--- NOTE | 2018-09-03 10:16 | Progress Note ---
Assessment and Plan Impression * Acute kidney injury * Hypertension * Seizure disorder * UTI * Malnutrition * History of endometrial cancer * Depression * Metabolic acidosis Recommendation * Renal function is stable. Serum creatinine is unchanged at 2.0 * Continue gentle IV hydration * A blood pressure remains elevated. Increase the dose of her hydralazine. * Renal ultrasound essentially normal. * Antibiotic as per primary team Subjective Date of service: 09/03/18 Principal diagnosis: UTI Interval history: resting well in bed today Objective - Exam Narrative Exam: General appearance: well-developed, well-nourished, appears stated age EENT: PERRL, mucous membranes moist Neck: no JVD, no thyromegaly, no carotid bruit, supple Respiratory: Present: Clear to Ascultation Cardiology: regular, normal heart rate, S1S2, no murmurs Gastrointestinal: normal, normoactive bowel sounds Integumentary: other (left above-knee amputation. 1+ edema in her right lower extremity) - Vital Signs Vital signs: Vital Signs - 12hr 09/02/18 09/02/18 09/02/18 23:00 23:06 23:07 Temperature 100.5 F H Pulse Rate 58 L 57 L 57 L Respiratory 20 Rate Blood Pressure 130/47 130/47 130/47 O2 Sat by Pulse 100 Oximetry 09/03/18 04:33 Temperature 98.6 F Pulse Rate 57 L Respiratory 20 Rate Blood Pressure 151/47 O2 Sat by Pulse 100 Oximetry - Lab 08/30/18 05:24 09/02/18 10:24 Most recent lab results Calcium 8.6 mg/dL (8.4-10.2) 09/02/18 10:24 Phosphorus 3.70 mg/dL (2.5-4.5) 08/23/18 09:05 Magnesium 1.90 mg/dL (1.7-2.3) 08/28/18 13:05 Medications & Allergies - Medications Allergies/Adverse Reactions: Allergies No Known Allergies Allergy (Unverified 06/05/17 13:30) Home Medications: Home Medications Medication Instructions Recorded Confirmed Last Taken Type Aspirin 81 mg PO DAILY 11/14/17 08/22/18 Unknown History Megestrol Acetate 800 mg PO DAILY 11/14/17 08/22/18 Unknown History OLANZapine [Zyprexa] 2.5 mg PO DAILY 11/14/17 08/22/18 Unknown History FLUoxetine [PROzac] 40 mg PO QDAY #30 capsule 11/26/17 08/22/18 Unknown Rx Ferrous Sulfate [Ferrous Sulfate 300 mg PO QDAY #30 oral.liqd 11/26/17 08/22/18 Unknown Rx Oral Liq 300 Mg/5 Ml] Pantoprazole [Protonix TAB] 40 mg PO QDAY #30 tablet 11/26/17 08/22/18 Unknown Rx amLODIPine [Norvasc] 10 mg PO DAILY #30 tablet 11/26/17 08/22/18 Unknown Rx Carvedilol [Coreg] 25 mg PO BID tablet 12/06/17 08/22/18 Unknown Rx cloNIDine [Catapres] 0.1 mg PO Q8H tablet 12/06/17 08/22/18 Unknown Rx traMADol [Ultram 50 MG tab] 50 mg PO Q12HR PRN #20 tablet 12/06/17 08/22/18 Unknown Rx Acetaminophen 325 mg PO Q6H PRN 12/22/17 08/22/18 Unknown History Glucagon HCl 1 mg IM ONCE PRN 12/22/17 08/22/18 Unknown History Klor-Con 10 10 meq PO DAILY 12/22/17 08/22/18 Unknown History Lispro Insulin [HumaLOG] See Protocol SC ACHS 12/22/17 08/22/18 Unknown History Simethicone 80 mg PO Q8H PRN 12/22/17 08/22/18 Unknown History levETIRAcetam [Keppra ORAL LIQ] 750 mg PO BID 30 Days bottle 01/04/18 08/22/18 Unknown Rx Active Medications: Generic Name Dose Route Start Last Admin Trade Name Freq PRN Reason Stop Dose Admin Acetaminophen 650 mg 08/22/18 23:50 08/24/18 22:55 Tylenol PO 650 mg Q4H PRN Administration Pain MILD(1-3)/Fever >100.5/CARTER Amlodipine Besylate 10 mg 08/24/18 10:00 09/02/18 10:32 Norvasc PO Not Given DAILY [facility] Lipase/Protease/Amylase 1 each 08/23/18 15:27 Pancrerosa Billingsley 10,500 Unit FEEDTUBE PRN PRN For Clogged Feeding Tube Aspirin 81 mg 08/24/18 10:00 09/02/18 10:30 Baby Aspirin PO Not Given DAILY [facility] Carvedilol 25 mg 08/25/18 22:00 09/02/18 23:06 Coreg PO 25 mg BID NASH Administration Clonidine HCl 0.3 mg 08/24/18 10:00 08/31/18 12:21 Catapres-Tts Patch TD 0.3 mg QWEEK [facility] Administration Dextrose 50 ml 08/22/18 23:50 D50w (25gm) Syringe IV PRN PRN Hypoglycemia Fluoxetine HCl 40 mg 08/24/18 10:00 09/02/18 10:32 Prozac PO Not Given QDAY [facility] Heparin Sodium (Porcine) 5,000 unit 08/23/18 10:00 09/02/18 22:59 Heparin SUB-Q 5,000 unit Q12HR NASH Administration Hydralazine HCl 10 mg 08/24/18 07:32 09/02/18 10:34 Apresoline IV 10 mg Q4HR PRN Administration HTN >155/90 Hydralazine HCl 100 mg 08/28/18 14:00 09/03/18 06:07 Apresoline PO Not Given Q8HR [facility] Insulin Human Isoph/Insulin Regular 15 unit 08/25/18 12:00 09/02/18 17:25 Humulin 70/30 SUB-Q 15 unit BIDDIAB [facility] Administration Insulin Human Lispro 0 unit 08/26/18 00:00 09/03/18 05:34 Humalog SUB-Q Not Given Q6HR [facility] Protocol Levetiracetam 1,000 mg 08/27/18 10:00 09/02/18 23:06 Keppra PO 1,000 mg BID [facility] Administration Lorazepam 1 mg 08/23/18 01:58 Ativan IV Q4H PRN Seizures Olanzapine 2.5 mg 08/24/18 10:00 09/02/18 10:32 Zyprexa PO Not Given DAILY [facility] Ondansetron HCl 4 mg 08/22/18 23:50 Zofran IV Q8H PRN Nausea And Vomiting Simple Syrup 15 ml 08/23/18 15:27 Simple Syrup FEEDTUBE PRN PRN Hypoglycemia Simple Syrup 30 ml 08/23/18 15:27 Simple Syrup FEEDTUBE PRN PRN Hypoglycemia Sodium Bicarbonate 325 mg 08/23/18 15:27 Sodium Bicarbonate FEEDTUBE PRN PRN For Clogged Feeding Tube Sodium Chloride 10 ml 08/22/18 23:50 09/02/18 23:07 Sodium Chloride Flush Syringe 10 Ml IV 10 ml BID NASH Administration Sodium Chloride 10 ml 08/23/18 00:12 Sodium Chloride Flush Syringe 10 Ml IV PRN PRN LINE FLUSH
[2018-09-03] MEDS: KEPPRA PO SCH ×2 (11:22→22:15)
[2018-09-03] MEDS: COREG PO SCH ×2 (11:23→22:15)
[2018-09-03] MEDS: PROzac PO SCH (11:23)
[2018-09-03] MEDS: NORVASC PO SCH (11:23)
[2018-09-03] MEDS: BABY ASPIRIN PO SCH (11:24)
[2018-09-03] MEDS: HEPARIN SUB-Q SCH ×2 (11:24→22:16)
[2018-09-03] MEDS: SODIUM CHLORIDE FLUSH SYRINGE 10 ML IV SCH ×2 (11:25→23:08)
[2018-09-03 14:26] LABS: Calcium 8.5 mg/dL (8.4-10.2)
[2018-09-04] MEDS: HumaLOG SUB-Q SCH ×4 (00:08→18:29)
[2018-09-04 06:59] LABS: Calcium 8.7 mg/dL (8.4-10.2)
[2018-09-04] MEDS ORDERED: KIONEX PO NR (07:46)
[2018-09-04] MEDS: APRESOLINE PO SCH ×3 (07:50→21:45)
[2018-09-04] MEDS: KEPPRA PO SCH ×2 (10:05→21:05)
[2018-09-04] MEDS: BABY ASPIRIN PO SCH (10:05)
[2018-09-04] MEDS: HEPARIN SUB-Q SCH ×2 (10:05→21:05)
[2018-09-04] MEDS: PROzac PO SCH (10:05)
[2018-09-04] MEDS: COREG PO SCH ×2 (10:06→23:22)
[2018-09-04] MEDS: NORVASC PO SCH (10:06)
--- NOTE | 2018-09-04 10:11 | Progress Note ---
Assessment and Plan Assessment and plan: 62-year-old female patient in correction resident was admitted through emergency room with witnessed seizures and status epilepticus Patient was also noted to have hypertensive emergency requiring Cardene drip, admitted and stabilized in ICU, transferred to medical floor. Patient was placed on antiepileptic medications, seizure precautions, evaluated by neurology Patient had UTI present on admission positive for ESBL, placed on contact isolation, evaluated by ID, received meropenem for total 4 days, patient's symptoms significantly improved, ID advised to continue contact isolation. Patient did not have any new episodes of seizures, is hemodynamically and clinically stable for discharge However isolation rooms are not available in the correction. Awaiting to return to correction when isolation room is available CXR: Mild cardiomegaly and PULMONARY VASCULAR CONGESTION --Sepsis secondary to UTI /ESBL;present on admission Completed total 4 days of Meropenem,per ID continue contact isolation, awaiting isolation bed at SNF --Metabolic encephalopathy; present on admission; resolved Multifactorial, sepsis, seizures, acute on chronic kidney disease --Hypertensive Emergency: Present on admission. Blood pressures are better controlled today s/p cardine drip, on amlodipine, Coreg, clonidine, losartan, hydralazine spironolactone Held due to Hyperkalmia And when necessary hydralazine, --Status epilepticus: Seizure precautions, continue keppra to 1000mg bid Ativan when necessary, neurology evaluated the patient --CLINT on CKD 3: Vasomotor nephropathy Gentle hydration INITIALLY now discontinued, slow renal improvement noted but mildly elevated today, continue to monitor renal function, avoid nephrotoxins, creatinine level trending down Nephrology following --Hyperkalemia: correcting, continue to hold ARB held, Recheck K in am. give kayxlate and obtain a start recheck --Moderate to severe malnutrition: Nutrition supplements Supportive care, nutrition consulted and input noted --Severe debility; physical therapy occupational therapy --Insulin-dependent diabetes; Accu-Chek sliding scale coverage and ADA diet Insulin as needed,hemoglobin A1c 8.3 --History of left AKA: Supportive care --History of endometrial cancer status post hysterectomy,stable --History of major depression; continue current antidepression medications --Dyslipidemia; stable on lipid-lowering medicine, low-cholesterol diet --DVT Prophylaxis; Lovenox Plan of care reviewed with the patient and her nurse Discharge planning. Case management Pt will return to SNF when isolation room is available Patient is medically stable for discharge Case discussed during MDR History Interval history: Patient seen and examined, No new complaints, No fever. Hospitalist Physical - Physical exam Narrative exam: General appearance: Present: no acute distress, well-nourished, obese. No change - EENT Eyes: Present: PERRL, EOM intact - Neck Neck: Present: supple, normal ROM - Respiratory Respiratory effort: normal Respiratory: bilateral: diminished, negative: rales, rhonchi, wheezing - Cardiovascular Rhythm: regular Heart Sounds: Present: S1 & S2 - Extremities Extremities: no ischemia, No edema, abnormal (right AKA) - Abdominal General gastrointestinal: soft, non-tender, non-distended, normal bowel sounds - Integumentary Integumentary: Present: clear, warm - Psychiatric Psychiatric: depressed mood and affect - Neurologic Neurologic: moves all extremities - Constitutional Vitals: Temp Pulse Resp BP Pulse Ox 98.7 F 57 L 18 163/53 95 09/04/18 05:54 09/04/18 10:06 09/04/18 05:54 09/04/18 10:06 09/04/18 05:54 General appearance: Present: no acute distress, well-nourished, obese Results - Labs CBC & Chem 7: 08/30/18 05:24 09/04/18 05:25 Labs: Laboratory Last Values WBC 8.9 K/mm3 (4.5-11.0) 08/30/18 05:24 RBC 3.33 M/mm3 (3.65-5.03) L 08/30/18 05:24 Hgb 9.2 gm/dl (10.1-14.3) L 08/30/18 05:24 Hct 28.5 % (30.3-42.9) L 08/30/18 05:24 MCV 86 fl (79-97) 08/30/18 05:24 MCH 28 pg (28-32) 08/30/18 05:24 MCHC 32 % (30-34) 08/30/18 05:24 RDW 15.9 % (13.2-15.2) H 08/30/18 05:24 Plt Count 332 K/mm3 (140-440) 08/30/18 05:24 Lymph % (Auto) [employer] 08/24/18 04:37 [place] % (Auto) [employer] 08/24/18 04:37 Eos % (Auto) [employer] 08/24/18 04:37 Baso % (Auto) [employer] 08/24/18 04:37 Lymph # [employer] 08/24/18 04:37 [place] # [employer] 08/24/18 04:37 Eos # [employer] 08/24/18 04:37 Baso # [employer] 08/24/18 04:37 Add Manual Diff Complete 08/30/18 05:24 Total Counted 100 08/30/18 05:24 Seg Neutrophils % [employer] 08/24/18 04:37 Seg Neuts % (Manual) 69.0 % (40.0-70.0) 08/30/18 05:24 2.0 % 08/30/18 05:24 14.0 % (13.4-35.0) 08/30/18 05:24 Reactive Lymphs % (Man) 0 % 08/30/18 05:24 13.0 % (0.0-7.3) H 08/30/18 05:24 2.0 % (0.0-4.3) 08/30/18 05:24 0 % (0.0-1.8) 08/30/18 05:24 0 % 08/30/18 05:24 0 % 08/30/18 05:24 0 % 08/30/18 05:24 0 % 08/30/18 05:24 Nucleated RBC % Not Reportable 08/30/18 05:24 Seg Neutrophils # [employer] 08/24/18 04:37 Seg Neutrophils # Man 6.1 K/mm3 (1.8-7.7) 08/30/18 05:24 Band Neutrophils # 0.2 K/mm3 08/30/18 05:24 1.2 K/mm3 (1.2-5.4) 08/30/18 05:24 Abs React Lymphs (Man) 0.0 K/mm3 08/30/18 05:24 1.2 K/mm3 (0.0-0.8) H 08/30/18 05:24 0.2 K/mm3 (0.0-0.4) 08/30/18 05:24 0.0 K/mm3 (0.0-0.1) 08/30/18 05:24 0.0 K/mm3 08/30/18 05:24 0.0 K/mm3 08/30/18 05:24 0.0 K/mm3 08/30/18 05:24 Blast Cells # 0.0 K/mm3 08/30/18 05:24 WBC Morphology Not Reportable 08/30/18 05:24 Hypersegmented Neuts Not Reportable 08/30/18 05:24 Hyposegmented Neuts Not Reportable 08/30/18 05:24 Hypogranular Neuts Not Reportable 08/30/18 05:24 Not Reportable 08/30/18 05:24 Not Reportable 08/30/18 05:24 Not Reportable 08/30/18 05:24 Not Reportable 08/30/18 05:24 Not Reportable 08/30/18 05:24 Not Reportable 08/30/18 05:24 Consistent w auto 08/30/18 05:24 Not Reportable 08/30/18 05:24 Plt Clumps, EDTA Not Reportable 08/30/18 05:24 Not Reportable 08/30/18 05:24 Not Reportable 08/30/18 05:24 Not Reportable 08/30/18 05:24 Plt Morphology Comment Not Reportable 08/30/18 05:24 RBC Morphology Not Reportable 08/30/18 05:24 Dimorphic RBCs Not Reportable 08/30/18 05:24 Not Reportable 08/30/18 05:24 Not Reportable 08/30/18 05:24 Not Reportable 08/30/18 05:24 Not Reportable 08/30/18 05:24 Not Reportable 08/30/18 05:24 Few 08/30/18 05:24 Not Reportable 08/30/18 05:24 Not Reportable 08/30/18 05:24 Not Reportable 08/30/18 05:24 Not Reportable 08/30/18 05:24 Not Reportable 08/30/18 05:24 Not Reportable 08/30/18 05:24 Not Reportable 08/30/18 05:24 Not Reportable 08/30/18 05:24 Not Reportable 08/30/18 05:24 Not Reportable 08/30/18 05:24 Not Reportable 08/30/18 05:24 Not Reportable 08/30/18 05:24 Not Reportable 08/30/18 05:24 Acanthocytes (Spur) Not Reportable 08/30/18 05:24 Rouleaux Not Reportable 08/30/18 05:24 Not Reportable 08/30/18 05:24 Not Reportable 08/30/18 05:24 Not Reportable 08/30/18 05:24 Not Reportable 08/30/18 05:24 Hem Pathologist Commnt No 08/30/18 05:24 Sodium 138 mmol/L (137-145) 09/04/18 05:25 Potassium 6.6 mmol/L (3.6-5.0) H* D 09/04/18 05:25 Chloride 103.5 mmol/L (98-107) 09/04/18 05:25 Carbon Dioxide 22 mmol/L (22-30) 09/04/18 05:25 19 mmol/L 09/04/18 05:25 BUN 38 mg/dL (7-17) H 09/04/18 05:25 2.3 mg/dL (0.7-1.2) H 09/04/18 05:25 Estimated GFR 26 ml/min 09/04/18 05:25 17 % 09/04/18 05:25 Glucose 94 mg/dL (65-100) 09/04/18 05:25 POC Glucose 115 (70-105) H 09/04/18 06:06 8.3 % (4-6) H 08/23/18 01:03 313 Mosm/kg 08/23/18 10:10 Lactic Acid 0.80 mmol/L (0.7-2.0) 08/23/18 10:10 7.7 mg/dL (3.5-7.6) H 08/23/18 09:05 Calcium 8.7 mg/dL (8.4-10.2) 09/04/18 05:25 Phosphorus 3.70 mg/dL (2.5-4.5) 08/23/18 09:05 Magnesium 1.90 mg/dL (1.7-2.3) 08/28/18 13:05 0.30 mg/dL (0.1-1.2) 08/23/18 09:05 AST 19 units/L (5-40) 08/23/18 09:05 ALT 7 units/L (7-56) 08/23/18 09:05 93 units/L (35-129) 08/23/18 09:05 612 units/L (30-135) H 08/23/18 09:05 7.4 g/dL (6.3-8.2) 08/23/18 09:05 3.1 g/dL (3.9-5) L 08/23/18 09:05 0.7 % 08/23/18 09:05 Triglycerides 160 mg/dL (2-149) H 08/23/18 04:08 Cholesterol 325 mg/dL (50-199) H 08/23/18 04:08 248 mg/dL (50-130) H 08/23/18 04:08 60 mg/dL (40-59) H 08/23/18 04:08 5.41 % 08/23/18 04:08 0.08 ng/mL/h (0.25-5.82) L 08/23/18 10:10 3 ng/dL () 08/23/18 10:10 Aldosterone/Renin Dir 37.5 Ratio (0.9-28.9) H 08/23/18 10:10 Gracia (Yellow) 08/22/18 19:45 Cloudy (Clear) 08/22/18 19:45 6.0 (5.0-7.0) 08/22/18 19:45 Ur Specific [place] 1.024 (1.003-1.030) 08/22/18 19:45 >500 mg/dL (Negative) 08/22/18 19:45 150 mg/dL (Negative) 08/22/18 19:45 Neg mg/dL (Negative) 08/22/18 19:45 Sm (Negative) 08/22/18 19:45 Neg (Negative) 08/22/18 19:45 Neg (Negative) 08/22/18 19:45 < 2.0 mg/dL (<2.0) 08/22/18 19:45 Ur Leukocyte Esterase Tr (Negative) 08/22/18 19:45 42.0 /HPF (0.0-6.0) H 08/22/18 19:45 11.0 /HPF (0.0-6.0) 08/22/18 19:45 U Epithel Cells (Auto) 4.0 /HPF (0-13.0) 08/22/18 19:45 4+ /HPF (Negative) 08/22/18 19:45 Hyaline Casts 7 /LPF 08/22/18 19:45 1+ /HPF 08/22/18 19:45 Active Medications - Current Medications Current Medications: Generic Name Dose Route Start Last Admin Trade Name Freq PRN Reason Stop Dose Admin Acetaminophen 650 mg 08/22/18 23:50 08/24/18 22:55 Tylenol PO 650 mg Q4H PRN Administration Pain MILD(1-3)/Fever >100.5/CARTER Amlodipine Besylate 10 mg 08/24/18 10:00 09/04/18 10:06 Norvasc PO 10 mg DAILY NASH Administration Lipase/Protease/Amylase 1 each 08/23/18 15:27 Pancreaze 10,500 Unit FEEDTUBE PRN PRN For Clogged Feeding Tube Aspirin 81 mg 08/24/18 10:00 09/04/18 10:05 Baby Aspirin PO 81 mg DAILY NASH Administration Carvedilol 25 mg 08/25/18 22:00 09/04/18 10:06 Coreg PO 25 mg BID NASH Administration Clonidine HCl 0.3 mg 08/24/18 10:00 08/31/18 12:21 Catapres-Tts Patch TD 0.3 mg QWEEK NASH Administration Dextrose 50 ml 08/22/18 23:50 D50w (25gm) Syringe IV PRN PRN Hypoglycemia Fluoxetine HCl 40 mg 08/24/18 10:00 09/04/18 10:05 Prozac PO 40 mg QDAY NASH Administration Heparin Sodium (Porcine) 5,000 unit 08/23/18 10:00 09/04/18 10:05 Heparin SUB-Q 5,000 unit Q12HR NASH Administration Hydralazine HCl 10 mg 08/24/18 07:32 09/02/18 10:34 Apresoline IV 10 mg Q4HR PRN Administration HTN >155/90 Hydralazine HCl 100 mg 08/28/18 14:00 09/04/18 07:50 Apresoline PO Not Given Q8HR [facility] Insulin Human Isoph/Insulin Regular 15 unit 08/25/18 12:00 09/04/18 10:04 Humulin 70/30 SUB-Q 15 unit BIDDIAB NASH Administration Insulin Human Lispro 0 unit 08/26/18 00:00 09/04/18 06:05 Humalog SUB-Q Not Given Q6HR [facility] Protocol Levetiracetam 1,000 mg 08/27/18 10:00 09/04/18 10:05 Keppra PO 1,000 mg BID NASH Administration Lorazepam 1 mg 08/23/18 01:58 Ativan IV Q4H PRN Seizures Olanzapine 2.5 mg 08/24/18 10:00 09/03/18 11:23 Zyprexa PO 2.5 mg DAILY NASH Administration Ondansetron HCl 4 mg 08/22/18 23:50 Zofran IV Q8H PRN Nausea And Vomiting Simple Syrup 15 ml 08/23/18 15:27 Simple Syrup FEEDTUBE PRN PRN Hypoglycemia Simple Syrup 30 ml 08/23/18 15:27 Simple Syrup FEEDTUBE PRN PRN Hypoglycemia Sodium Bicarbonate 325 mg 08/23/18 15:27 Sodium Bicarbonate FEEDTUBE PRN PRN For Clogged Feeding Tube Sodium Chloride 10 ml 08/22/18 23:50 09/03/18 23:08 Sodium Chloride Flush Syringe 10 Ml IV 10 ml BID NASH Administration Sodium Chloride 10 ml 08/23/18 00:12 Sodium Chloride Flush Syringe 10 Ml IV PRN PRN LINE FLUSH Nutrition/Malnutrition Assess - Dietary Evaluation Nutrition/Malnutrition Findings: Nutrition Notes Start: 08/23/18 15:56 Freq: Status: Active Protocol: Document 08/31/18 18:10 RM (Rec: 08/31/18 18:16 RM [id number]) Nutrition Notes Initial or Follow up Reassessment Current Diagnosis Acute Kidney Injury,CKD(stage I-IV),Coronary Artery Disease, Diabetes,Sepsis,Hypertension, Hyperlipidemia Other Pertinent Diagnosis PVD, Hx endometrial CA, Seizures, AKA Current Diet Cardiac/Consistent CHO,Mech soft w/Glucerna Labs/Tests A1c 8.3 Pertinent Medications Reviewed Height 5 ft Weight 62.9 kg [place] Body Weight (kg) 45.45 BMI 27.1 Weight change and time frame Current wt obtain from [facility] Subjective/Other Information Pt confused at time of visit. Tech stated that pt ate 50% of her meals and drank the Glucerna. Percent of energy/protein needs met: 91%/93% Burn Absent Trauma Absent #1 Nutrition Diagnosis Inadequate oral intake As Evidenced by Signs and Symptoms pt meeting 91% of calorie and 93% of protein needs Diagnosis Progress(for reassessment Resolved documentation) Is patient on ventilator? No Is Patient Ambulatory and/or Out of Bed No [facility] 1325.375 Calculation Used for Recommendations Kcal/kg Additional Notes Protein Needs: 54-67g (0.8-1g/ kg 67kg adjBW) Fluid Needs: 1 ml/kcal Nutrition Intervention Change Diet Order: Cardiac/Consistent CHO Add Supplement/Snack (indicate name/kcal Glucerna 1 daily /protein ) Provides kCal: 220 Provides Protein (gm) 10 Goal #1 Continue to meet at least 75% of calorie and protein needs via PO and ONS intakes Anticipated Discharge Needs: Unable to determine at this time Follow-Up By: 09/05/18 Additional Comments Follow for PO and ONS intakes, DM diet education
--- NOTE | 2018-09-04 11:27 | Progress Note ---
Assessment and Plan Impression * Acute kidney injury * Hypertension * Seizure disorder * UTI * Malnutrition * History of endometrial cancer * Depression * Metabolic acidosis Recommendation * Renal function is stable. Serum creatinine is 2.3 and elevated * Continue gentle IV hydration * low k diet, make sure on renal diet * kayexalate prn * A blood pressure remains elevated. * Renal ultrasound essentially normal. * Antibiotic as per primary team Subjective Date of service: 09/04/18 Principal diagnosis: UTI Interval history: resting well in bed today Objective - Exam Narrative Exam: General appearance: well-developed, well-nourished, appears stated age EENT: PERRL, mucous membranes moist Neck: no JVD, no thyromegaly, no carotid bruit, supple Respiratory: Present: Clear to Ascultation Cardiology: regular, normal heart rate, S1S2, no murmurs Gastrointestinal: normal, normoactive bowel sounds Integumentary: other (left above-knee amputation. 1+ edema in her right lower extremity) - Vital Signs Vital signs: Vital Signs - 12hr 09/03/18 09/04/18 09/04/18 23:37 05:54 07:50 Temperature 97.7 F 98.7 F Pulse Rate 56 L 55 L 55 L Respiratory 18 18 Rate Blood Pressure 126/32 148/32 148/32 O2 Sat by Pulse 100 95 Oximetry 09/04/18 10:06 Temperature Pulse Rate 57 L Respiratory Rate Blood Pressure 163/53 O2 Sat by Pulse Oximetry - Lab 08/30/18 05:24 09/04/18 10:45 Most recent lab results Calcium 8.7 mg/dL (8.4-10.2) 09/04/18 05:25 Phosphorus 3.70 mg/dL (2.5-4.5) 08/23/18 09:05 Magnesium 1.90 mg/dL (1.7-2.3) 08/28/18 13:05 Medications & Allergies - Medications Allergies/Adverse Reactions: Allergies No Known Allergies Allergy (Unverified 06/05/17 13:30) Home Medications: Home Medications Medication Instructions Recorded Confirmed Last Taken Type Aspirin 81 mg PO DAILY 11/14/17 08/22/18 Unknown History Megestrol Acetate 800 mg PO DAILY 11/14/17 08/22/18 Unknown History OLANZapine [Zyprexa] 2.5 mg PO DAILY 11/14/17 08/22/18 Unknown History FLUoxetine [PROzac] 40 mg PO QDAY #30 capsule 11/26/17 08/22/18 Unknown Rx Ferrous Sulfate [Ferrous Sulfate 300 mg PO QDAY #30 oral.liqd 11/26/17 08/22/18 Unknown Rx Oral Liq 300 Mg/5 Ml] Pantoprazole [Protonix TAB] 40 mg PO QDAY #30 tablet 11/26/17 08/22/18 Unknown Rx amLODIPine [Norvasc] 10 mg PO DAILY #30 tablet 11/26/17 08/22/18 Unknown Rx Carvedilol [Coreg] 25 mg PO BID tablet 12/06/17 08/22/18 Unknown Rx cloNIDine [Catapres] 0.1 mg PO Q8H tablet 12/06/17 08/22/18 Unknown Rx traMADol [Ultram 50 MG tab] 50 mg PO Q12HR PRN #20 tablet 12/06/17 08/22/18 Unknown Rx Acetaminophen 325 mg PO Q6H PRN 12/22/17 08/22/18 Unknown History Glucagon HCl 1 mg IM ONCE PRN 12/22/17 08/22/18 Unknown History Klor-Con 10 10 meq PO DAILY 12/22/17 08/22/18 Unknown History Lispro Insulin [HumaLOG] See Protocol SC ACHS 12/22/17 08/22/18 Unknown History Simethicone 80 mg PO Q8H PRN 12/22/17 08/22/18 Unknown History levETIRAcetam [Keppra ORAL LIQ] 750 mg PO BID 30 Days bottle 01/04/18 08/22/18 Unknown Rx Active Medications: Generic Name Dose Route Start Last Admin Trade Name Freq PRN Reason Stop Dose Admin Acetaminophen 650 mg 08/22/18 23:50 08/24/18 22:55 Tylenol PO 650 mg Q4H PRN Administration Pain MILD(1-3)/Fever >100.5/CARTER Amlodipine Besylate 10 mg 08/24/18 10:00 09/04/18 10:06 Norvasc PO 10 mg DAILY NASH Administration Lipase/Protease/Amylase 1 each 08/23/18 15:27 Pancrerosa [place] 10,500 Unit FEEDTUBE PRN PRN For Clogged Feeding Tube Aspirin 81 mg 08/24/18 10:00 09/04/18 10:05 Baby Aspirin PO 81 mg DAILY NASH Administration Carvedilol 25 mg 08/25/18 22:00 09/04/18 10:06 Coreg PO 25 mg BID NASH Administration Clonidine HCl 0.3 mg 08/24/18 10:00 08/31/18 12:21 Catapres-Tts Patch TD 0.3 mg QWEEK NASH Administration Dextrose 50 ml 08/22/18 23:50 D50w (25gm) Syringe IV PRN PRN Hypoglycemia Fluoxetine HCl 40 mg 08/24/18 10:00 09/04/18 10:05 Prozac PO 40 mg QDAY NASH Administration Heparin Sodium (Porcine) 5,000 unit 08/23/18 10:00 09/04/18 10:05 Heparin SUB-Q 5,000 unit Q12HR NASH Administration Hydralazine HCl 10 mg 08/24/18 07:32 09/02/18 10:34 Apresoline IV 10 mg Q4HR PRN Administration HTN >155/90 Hydralazine HCl 100 mg 08/28/18 14:00 09/04/18 07:50 Apresoline PO Not Given Q8HR [facility] Insulin Human Isoph/Insulin Regular 15 unit 08/25/18 12:00 09/04/18 10:04 Humulin 70/30 SUB-Q 15 unit BIDDIAB NASH Administration Insulin Human Lispro 0 unit 08/26/18 00:00 09/04/18 06:05 Humalog SUB-Q Not Given Q6HR [facility] Protocol Levetiracetam 1,000 mg 08/27/18 10:00 09/04/18 10:05 Keppra PO 1,000 mg BID NASH Administration Lorazepam 1 mg 08/23/18 01:58 Ativan IV Q4H PRN Seizures Olanzapine 2.5 mg 08/24/18 10:00 09/03/18 11:23 Zyprexa PO 2.5 mg DAILY NASH Administration Ondansetron HCl 4 mg 08/22/18 23:50 Zofran IV Q8H PRN Nausea And Vomiting Simple Syrup 15 ml 08/23/18 15:27 Simple Syrup FEEDTUBE PRN PRN Hypoglycemia Simple Syrup 30 ml 08/23/18 15:27 Simple Syrup FEEDTUBE PRN PRN Hypoglycemia Sodium Bicarbonate 325 mg 08/23/18 15:27 Sodium Bicarbonate FEEDTUBE PRN PRN For Clogged Feeding Tube Sodium Chloride 10 ml 08/22/18 23:50 09/03/18 23:08 Sodium Chloride Flush Syringe 10 Ml IV 10 ml BID NASH Administration Sodium Chloride 10 ml 08/23/18 00:12 Sodium Chloride Flush Syringe 10 Ml IV PRN PRN LINE FLUSH
[2018-09-04] MEDS: SODIUM CHLORIDE FLUSH SYRINGE 10 ML IV SCH ×2 (14:11→23:22)
[2018-09-04] MEDS: NACL 0.45% 1000 ML 1,000 ML IV SCH (14:13)
[2018-09-05] MEDS: HumaLOG SUB-Q SCH ×6 (01:02→22:46)
[2018-09-05] MEDS: NACL 0.45% 1000 ML 1,000 ML IV SCH ×2 (02:21→15:44)
[2018-09-05] MEDS: APRESOLINE PO SCH ×3 (05:52→21:33)
--- NOTE | 2018-09-05 08:16 | Progress Note ---
Assessment and Plan Impression * Acute kidney injury * Ecoli UTI * Hyperkalemia * Hypertension * Type II DM * Metabolic acidosis * Seizure disorder * History of endometrial cancer * Depression Recommendation * Renal function is stable. Serum creatinine is 2.0 * Encourage po hydration * Kayexelate 30g x 1 dose ordered * Renal diet * Abx per primary team * Glycemic control per primary team Subjective Date of service: 09/05/18 Principal diagnosis: UTI Interval history: Patient has no complaints today Objective - Vital Signs Vital signs: Vital Signs - 12hr 09/04/18 09/04/18 09/04/18 21:45 22:00 23:22 Temperature Pulse Rate 60 60 Pulse Rate [ 60 Apical] Respiratory Rate Blood Pressure 149/56 149/56 O2 Sat by Pulse Oximetry 09/04/18 09/05/18 09/05/18 23:56 05:52 06:08 Temperature 97.9 F 98.7 F Pulse Rate 55 L 60 56 L Pulse Rate [ Apical] Respiratory 20 20 Rate Blood Pressure 146/46 140/49 152/35 O2 Sat by Pulse 98 96 Oximetry - General Appearance General appearance: well-developed, well-nourished EENT: ATNC Respiratory: Present: Clear to Ascultation Cardiology: regular, S1S2 Gastrointestinal: normal, no tenderness, no distended Integumentary: no rash, warm and dry Psychiatric: cooperative - Lab 08/30/18 05:24 09/05/18 07:23 Most recent lab results Calcium 9.0 mg/dL (8.4-10.2) 09/04/18 Unknown Phosphorus 3.70 mg/dL (2.5-4.5) 08/23/18 09:05 Magnesium 1.90 mg/dL (1.7-2.3) 08/28/18 13:05 Medications & Allergies - Medications Allergies/Adverse Reactions: Allergies No Known Allergies Allergy (Unverified 06/05/17 13:30) Home Medications: Home Medications Medication Instructions Recorded Confirmed Last Taken Type Aspirin 81 mg PO DAILY 11/14/17 08/22/18 Unknown History Megestrol Acetate 800 mg PO DAILY 11/14/17 08/22/18 Unknown History OLANZapine [Zyprexa] 2.5 mg PO DAILY 11/14/17 08/22/18 Unknown History FLUoxetine [PROzac] 40 mg PO QDAY #30 capsule 11/26/17 08/22/18 Unknown Rx Ferrous Sulfate [Ferrous Sulfate 300 mg PO QDAY #30 oral.liqd 11/26/17 08/22/18 Unknown Rx Oral Liq 300 Mg/5 Ml] Pantoprazole [Protonix TAB] 40 mg PO QDAY #30 tablet 11/26/17 08/22/18 Unknown Rx amLODIPine [Norvasc] 10 mg PO DAILY #30 tablet 11/26/17 08/22/18 Unknown Rx Carvedilol [Coreg] 25 mg PO BID tablet 12/06/17 08/22/18 Unknown Rx cloNIDine [Catapres] 0.1 mg PO Q8H tablet 12/06/17 08/22/18 Unknown Rx traMADol [Ultram 50 MG tab] 50 mg PO Q12HR PRN #20 tablet 12/06/17 08/22/18 Unknown Rx Acetaminophen 325 mg PO Q6H PRN 12/22/17 08/22/18 Unknown History Glucagon HCl 1 mg IM ONCE PRN 12/22/17 08/22/18 Unknown History Klor-Con 10 10 meq PO DAILY 12/22/17 08/22/18 Unknown History Lispro Insulin [HumaLOG] See Protocol SC ACHS 12/22/17 08/22/18 Unknown History Simethicone 80 mg PO Q8H PRN 12/22/17 08/22/18 Unknown History levETIRAcetam [Keppra ORAL LIQ] 750 mg PO BID 30 Days bottle 01/04/18 08/22/18 Unknown Rx Active Medications: Generic Name Dose Route Start Last Admin Trade Name Freq PRN Reason Stop Dose Admin Acetaminophen 650 mg 08/22/18 23:50 08/24/18 22:55 Tylenol PO 650 mg Q4H PRN Administration Pain MILD(1-3)/Fever >100.5/CARTER Amlodipine Besylate 10 mg 08/24/18 10:00 09/04/18 10:06 Norvasc PO 10 mg DAILY NASH Administration Lipase/Protease/Amylase 1 each 08/23/18 15:27 Pancrerosa [place] 10,500 Unit FEEDTUBE PRN PRN For Clogged Feeding Tube Aspirin 81 mg 08/24/18 10:00 09/04/18 10:05 Baby Aspirin PO 81 mg DAILY NASH Administration Carvedilol 25 mg 08/25/18 22:00 09/04/18 23:22 Coreg PO 25 mg BID NASH Administration Clonidine HCl 0.3 mg 08/24/18 10:00 08/31/18 12:21 Catapres-Tts Patch TD 0.3 mg QWEEK NASH Administration Dextrose 50 ml 08/22/18 23:50 D50w (25gm) Syringe IV PRN PRN Hypoglycemia Fluoxetine HCl 40 mg 08/24/18 10:00 09/04/18 10:05 Prozac PO 40 mg QDAY NASH Administration Heparin Sodium (Porcine) 5,000 unit 08/23/18 10:00 09/04/18 21:05 Heparin SUB-Q 5,000 unit Q12HR NASH Administration Hydralazine HCl 10 mg 08/24/18 07:32 09/02/18 10:34 Apresoline IV 10 mg Q4HR PRN Administration HTN >155/90 Hydralazine HCl 100 mg 08/28/18 14:00 09/05/18 05:52 Apresoline PO 100 mg Q8HR NASH Administration Sodium Chloride 1,000 mls @ 75 mls/hr 09/04/18 12:00 09/05/18 02:21 Nacl 0.45% 1000 Ml IV 75 mls/hr DIRECT NASH Administration Insulin Human Isoph/Insulin Regular 15 unit 08/25/18 12:00 09/04/18 19:17 Humulin 70/30 SUB-Q 15 unit BIDDIAB NASH Administration Insulin Human Lispro 0 unit 08/26/18 00:00 09/05/18 06:13 Humalog SUB-Q Not Given Q6HR [facility] Protocol Levetiracetam 1,000 mg 08/27/18 10:00 09/04/18 21:05 Keppra PO 1,000 mg BID NASH Administration Lorazepam 1 mg 08/23/18 01:58 Ativan IV Q4H PRN Seizures Olanzapine 2.5 mg 08/24/18 10:00 09/04/18 14:10 Zyprexa PO 2.5 mg DAILY NASH Administration Ondansetron HCl 4 mg 08/22/18 23:50 Zofran IV Q8H PRN Nausea And Vomiting Simple Syrup 15 ml 08/23/18 15:27 Simple Syrup FEEDTUBE PRN PRN Hypoglycemia Simple Syrup 30 ml 08/23/18 15:27 Simple Syrup FEEDTUBE PRN PRN Hypoglycemia Sodium Bicarbonate 325 mg 08/23/18 15:27 Sodium Bicarbonate FEEDTUBE PRN PRN For Clogged Feeding Tube Sodium Chloride 10 ml 08/22/18 23:50 09/04/18 23:22 Sodium Chloride Flush Syringe 10 Ml IV 10 ml BID NASH Administration Sodium Chloride 10 ml 08/23/18 00:12 Sodium Chloride Flush Syringe 10 Ml IV PRN PRN LINE FLUSH
[2018-09-05 08:20] LABS: Calcium 9.1 mg/dL (8.4-10.2)
[2018-09-05] MEDS ORDERED: KIONEX PO ONE (08:30)
[2018-09-05] MEDS: NORVASC PO SCH (09:26)
[2018-09-05] MEDS: PROzac PO SCH (09:26)
[2018-09-05] MEDS: BABY ASPIRIN PO SCH (09:26)
[2018-09-05] MEDS: COREG PO SCH ×2 (09:26→21:33)
[2018-09-05] MEDS: HEPARIN SUB-Q SCH ×2 (09:27→21:33)
[2018-09-05] MEDS: KEPPRA PO SCH ×2 (09:27→21:34)
[2018-09-05] MEDS: SODIUM CHLORIDE FLUSH SYRINGE 10 ML IV SCH ×2 (12:28→21:34)
--- NOTE | 2018-09-05 16:04 | Progress Note ---
Assessment and Plan Assessment and plan: 62-year-old female patient in detention resident was admitted through emergency room with witnessed seizures and status epilepticus Patient was also noted to have hypertensive emergency requiring Cardene drip, admitted and stabilized in ICU, transferred to medical floor. Patient was placed on antiepileptic medications, seizure precautions, evaluated by neurology Patient had UTI present on admission positive for ESBL, placed on contact isolation, evaluated by ID, received meropenem for total 4 days, patient's symptoms significantly improved, ID advised to continue contact isolation. Patient did not have any new episodes of seizures, is hemodynamically and clinically stable for discharge However isolation rooms are not available in the detention. Awaiting to return to detention when isolation room is available CXR: Mild cardiomegaly and PULMONARY VASCULAR CONGESTION --Sepsis secondary to UTI /ESBL;present on admission Completed total 4 days of Meropenem,per ID continue contact isolation, awaiting isolation bed at SNF --Metabolic encephalopathy; present on admission; resolved Multifactorial, sepsis, seizures, acute on chronic kidney disease --Hypertensive Emergency: Present on admission. Blood pressures are better controlled today s/p cardine drip, on amlodipine, Coreg, clonidine, losartan, hydralazine spironolactone Held due to Hyperkalmia And when necessary hydralazine, --Status epilepticus: Seizure precautions, continue keppra to 1000mg bid Ativan when necessary, neurology evaluated the patient. continue current recs. no further recommendation --CLINT on CKD 3: Vasomotor nephropathy Gentle hydration INITIALLY now discontinued, slow renal improvement noted but mildly elevated today, continue to monitor renal function, avoid nephrotoxins, creatinine level trending down Nephrology following --Hyperkalemia: correcting, continue to hold ARB held, Recheck K in am. give kayxlate and obtain a start recheck --Moderate to severe malnutrition: Nutrition supplements Supportive care, nutrition consulted and input noted --Severe debility; physical therapy occupational therapy --Insulin-dependent diabetes; Accu-Chek sliding scale coverage and ADA diet Insulin as needed,hemoglobin A1c 8.3 --History of left AKA: Supportive care --History of endometrial cancer status post hysterectomy,stable --History of major depression; continue current antidepression medications --Dyslipidemia; stable on lipid-lowering medicine, low-cholesterol diet --DVT Prophylaxis; Lovenox Plan of care reviewed with the patient and her nurse Discharge planning. Case management Pt will return to SNF when isolation room is available Patient is medically stable for discharge Case discussed during MDR History Interval history: Patient seen and examined, No new complaints, No fever. awaiting placement Hospitalist Physical - Physical exam Narrative exam: General appearance: Present: no acute distress, well-nourished, obese. No change - EENT Eyes: Present: PERRL, EOM intact - Neck Neck: Present: supple, normal ROM - Respiratory Respiratory effort: normal Respiratory: bilateral: diminished, negative: rales, rhonchi, wheezing - Cardiovascular Rhythm: regular Heart Sounds: Present: S1 & S2 - Extremities Extremities: no ischemia, No edema, abnormal (right AKA) - Abdominal General gastrointestinal: soft, non-tender, non-distended, normal bowel sounds - Integumentary Integumentary: Present: clear, warm - Psychiatric Psychiatric: depressed mood and affect - Neurologic Neurologic: moves all extremities - Constitutional Vitals: Temp Pulse Resp BP Pulse Ox 98.2 F 63 16 194/71 94 09/05/18 12:26 09/05/18 15:45 09/05/18 12:26 09/05/18 15:45 09/05/18 12:26 General appearance: Present: no acute distress, well-nourished, obese Results - Labs CBC & Chem 7: 08/30/18 05:24 09/05/18 07:23 Labs: Laboratory Last Values WBC 8.9 K/mm3 (4.5-11.0) 08/30/18 05:24 RBC 3.33 M/mm3 (3.65-5.03) L 08/30/18 05:24 Hgb 9.2 gm/dl (10.1-14.3) L 08/30/18 05:24 Hct 28.5 % (30.3-42.9) L 08/30/18 05:24 MCV 86 fl (79-97) 08/30/18 05:24 MCH 28 pg (28-32) 08/30/18 05:24 MCHC 32 % (30-34) 08/30/18 05:24 RDW 15.9 % (13.2-15.2) H 08/30/18 05:24 Plt Count 332 K/mm3 (140-440) 08/30/18 05:24 Lymph % (Auto) [employer] 08/24/18 04:37 [place] % (Auto) [employer] 08/24/18 04:37 Eos % (Auto) [employer] 08/24/18 04:37 Baso % (Auto) [employer] 08/24/18 04:37 Lymph # [employer] 08/24/18 04:37 [place] # [employer] 08/24/18 04:37 Eos # [employer] 08/24/18 04:37 Baso # [employer] 08/24/18 04:37 Add Manual Diff Complete 08/30/18 05:24 Total Counted 100 08/30/18 05:24 Seg Neutrophils % [employer] 08/24/18 04:37 Seg Neuts % (Manual) 69.0 % (40.0-70.0) 08/30/18 05:24 2.0 % 08/30/18 05:24 14.0 % (13.4-35.0) 08/30/18 05:24 Reactive Lymphs % (Man) 0 % 08/30/18 05:24 13.0 % (0.0-7.3) H 08/30/18 05:24 2.0 % (0.0-4.3) 08/30/18 05:24 0 % (0.0-1.8) 08/30/18 05:24 0 % 08/30/18 05:24 0 % 08/30/18 05:24 0 % 08/30/18 05:24 0 % 08/30/18 05:24 Nucleated RBC % Not Reportable 08/30/18 05:24 Seg Neutrophils # [employer] 08/24/18 04:37 Seg Neutrophils # Man 6.1 K/mm3 (1.8-7.7) 08/30/18 05:24 Band Neutrophils # 0.2 K/mm3 08/30/18 05:24 1.2 K/mm3 (1.2-5.4) 08/30/18 05:24 Abs React Lymphs (Man) 0.0 K/mm3 08/30/18 05:24 1.2 K/mm3 (0.0-0.8) H 08/30/18 05:24 0.2 K/mm3 (0.0-0.4) 08/30/18 05:24 0.0 K/mm3 (0.0-0.1) 08/30/18 05:24 0.0 K/mm3 08/30/18 05:24 0.0 K/mm3 08/30/18 05:24 0.0 K/mm3 08/30/18 05:24 Blast Cells # 0.0 K/mm3 08/30/18 05:24 WBC Morphology Not Reportable 08/30/18 05:24 Hypersegmented Neuts Not Reportable 08/30/18 05:24 Hyposegmented Neuts Not Reportable 08/30/18 05:24 Hypogranular Neuts Not Reportable 08/30/18 05:24 Not Reportable 08/30/18 05:24 Not Reportable 08/30/18 05:24 Not Reportable 08/30/18 05:24 Not Reportable 08/30/18 05:24 Not Reportable 08/30/18 05:24 Not Reportable 08/30/18 05:24 Consistent w auto 08/30/18 05:24 Not Reportable 08/30/18 05:24 Plt Clumps, EDTA Not Reportable 08/30/18 05:24 Not Reportable 08/30/18 05:24 Not Reportable 08/30/18 05:24 Not Reportable 08/30/18 05:24 Plt Morphology Comment Not Reportable 08/30/18 05:24 RBC Morphology Not Reportable 08/30/18 05:24 Dimorphic RBCs Not Reportable 08/30/18 05:24 Not Reportable 08/30/18 05:24 Not Reportable 08/30/18 05:24 Not Reportable 08/30/18 05:24 Not Reportable 08/30/18 05:24 Not Reportable 08/30/18 05:24 Few 08/30/18 05:24 Not Reportable 08/30/18 05:24 Not Reportable 08/30/18 05:24 Not Reportable 08/30/18 05:24 Not Reportable 08/30/18 05:24 Not Reportable 08/30/18 05:24 Not Reportable 08/30/18 05:24 Not Reportable 08/30/18 05:24 Not Reportable 08/30/18 05:24 Not Reportable 08/30/18 05:24 Not Reportable 08/30/18 05:24 Not Reportable 08/30/18 05:24 Not Reportable 08/30/18 05:24 Not Reportable 08/30/18 05:24 Acanthocytes (Spur) Not Reportable 08/30/18 05:24 Rouleaux Not Reportable 08/30/18 05:24 Not Reportable 08/30/18 05:24 Not Reportable 08/30/18 05:24 Not Reportable 08/30/18 05:24 Not Reportable 08/30/18 05:24 Hem Pathologist Commnt No 08/30/18 05:24 Sodium 140 mmol/L (137-145) 09/05/18 07:23 Potassium 5.0 mmol/L (3.6-5.0) 09/05/18 07:23 Chloride 105.4 mmol/L (98-107) 09/05/18 07:23 Carbon Dioxide 24 mmol/L (22-30) 09/05/18 07:23 16 mmol/L 09/05/18 07:23 BUN 33 mg/dL (7-17) H 09/05/18 07:23 2.0 mg/dL (0.7-1.2) H 09/05/18 07:23 Estimated GFR 30 ml/min 09/05/18 07:23 17 % 09/05/18 07:23 Glucose 81 mg/dL (65-100) 09/05/18 07:23 POC Glucose 217 (70-105) H 09/05/18 11:37 8.3 % (4-6) H 08/23/18 01:03 313 Mosm/kg 08/23/18 10:10 Lactic Acid 0.80 mmol/L (0.7-2.0) 08/23/18 10:10 7.7 mg/dL (3.5-7.6) H 08/23/18 09:05 Calcium 9.1 mg/dL (8.4-10.2) 09/05/18 07:23 Phosphorus 3.70 mg/dL (2.5-4.5) 08/23/18 09:05 Magnesium 1.90 mg/dL (1.7-2.3) 08/28/18 13:05 0.30 mg/dL (0.1-1.2) 08/23/18 09:05 AST 19 units/L (5-40) 08/23/18 09:05 ALT 7 units/L (7-56) 08/23/18 09:05 93 units/L (35-129) 08/23/18 09:05 612 units/L (30-135) H 08/23/18 09:05 7.4 g/dL (6.3-8.2) 08/23/18 09:05 3.1 g/dL (3.9-5) L 08/23/18 09:05 0.7 % 08/23/18 09:05 Triglycerides 160 mg/dL (2-149) H 08/23/18 04:08 Cholesterol 325 mg/dL (50-199) H 08/23/18 04:08 248 mg/dL (50-130) H 08/23/18 04:08 60 mg/dL (40-59) H 08/23/18 04:08 5.41 % 08/23/18 04:08 0.08 ng/mL/h (0.25-5.82) L 08/23/18 10:10 3 ng/dL () 08/23/18 10:10 Aldosterone/Renin Dir 37.5 Ratio (0.9-28.9) H 08/23/18 10:10 [place] (Yellow) 08/22/18 19:45 Cloudy (Clear) 08/22/18 19:45 6.0 (5.0-7.0) 08/22/18 19:45 Ur Specific [place] 1.024 (1.003-1.030) 08/22/18 19:45 >500 mg/dL (Negative) 08/22/18 19:45 150 mg/dL (Negative) 08/22/18 19:45 Neg mg/dL (Negative) 08/22/18 19:45 Sm (Negative) 08/22/18 19:45 Neg (Negative) 08/22/18 19:45 Neg (Negative) 08/22/18 19:45 < 2.0 mg/dL (<2.0) 08/22/18 19:45 Ur Leukocyte Esterase Tr (Negative) 08/22/18 19:45 42.0 /HPF (0.0-6.0) H 08/22/18 19:45 11.0 /HPF (0.0-6.0) 08/22/18 19:45 U Epithel Cells (Auto) 4.0 /HPF (0-13.0) 08/22/18 19:45 4+ /HPF (Negative) 08/22/18 19:45 Hyaline Casts 7 /LPF 08/22/18 19:45 1+ /HPF 08/22/18 19:45 Active Medications - Current Medications Current Medications: Generic Name Dose Route Start Last Admin Trade Name Freq PRN Reason Stop Dose Admin Acetaminophen 650 mg 08/22/18 23:50 08/24/18 22:55 Tylenol PO 650 mg Q4H PRN Administration Pain MILD(1-3)/Fever >100.5/CARTER Amlodipine Besylate 10 mg 08/24/18 10:00 09/05/18 09:26 Norvasc PO 10 mg DAILY NASH Administration Lipase/Protease/Amylase 1 each 08/23/18 15:27 Pancreaze 10,500 Unit FEEDTUBE PRN PRN For Clogged Feeding Tube Aspirin 81 mg 08/24/18 10:00 09/05/18 09:26 Baby Aspirin PO 81 mg DAILY NASH Administration Carvedilol 25 mg 08/25/18 22:00 09/05/18 09:26 Coreg PO 25 mg BID NASH Administration Clonidine HCl 0.3 mg 08/24/18 10:00 08/31/18 12:21 Catapres-Tts Patch TD 0.3 mg QWEEK NASH Administration Dextrose 50 ml 08/22/18 23:50 D50w (25gm) Syringe IV PRN PRN Hypoglycemia Fluoxetine HCl 40 mg 08/24/18 10:00 09/05/18 09:26 Prozac PO 40 mg QDAY NASH Administration Heparin Sodium (Porcine) 5,000 unit 08/23/18 10:00 09/05/18 09:27 Heparin SUB-Q 5,000 unit Q12HR NASH Administration Hydralazine HCl 10 mg 08/24/18 07:32 09/02/18 10:34 Apresoline IV 10 mg Q4HR PRN Administration HTN >155/90 Hydralazine HCl 100 mg 08/28/18 14:00 09/05/18 15:45 Apresoline PO 100 mg Q8HR NASH Administration Sodium Chloride 1,000 mls @ 75 mls/hr 09/04/18 12:00 09/05/18 15:44 Nacl 0.45% 1000 Ml IV 75 mls/hr DIRECT NASH Administration Insulin Human Isoph/Insulin Regular 15 unit 08/25/18 12:00 09/05/18 09:29 Humulin 70/30 SUB-Q Not Given BIDDIAB NASH Insulin Human Lispro 0 unit 09/05/18 13:00 09/05/18 13:15 Humalog SUB-Q 4 unit ACHS NASH Administration Protocol Levetiracetam 1,000 mg 08/27/18 10:00 09/05/18 09:27 Keppra PO 1,000 mg BID NASH Administration Lorazepam 1 mg 08/23/18 01:58 Ativan IV Q4H PRN Seizures Olanzapine 2.5 mg 08/24/18 10:00 09/05/18 12:28 Zyprexa PO 2.5 mg DAILY NASH Administration Ondansetron HCl 4 mg 08/22/18 23:50 Zofran IV Q8H PRN Nausea And Vomiting Simple Syrup 15 ml 08/23/18 15:27 Simple Syrup FEEDTUBE PRN PRN Hypoglycemia Simple Syrup 30 ml 08/23/18 15:27 Simple Syrup FEEDTUBE PRN PRN Hypoglycemia Sodium Bicarbonate 325 mg 08/23/18 15:27 Sodium Bicarbonate FEEDTUBE PRN PRN For Clogged Feeding Tube Sodium Chloride 10 ml 08/22/18 23:50 09/05/18 12:28 Sodium Chloride Flush Syringe 10 Ml IV 10 ml BID NASH Administration Sodium Chloride 10 ml 08/23/18 00:12 Sodium Chloride Flush Syringe 10 Ml IV PRN PRN LINE FLUSH Nutrition/Malnutrition Assess - Dietary Evaluation Nutrition/Malnutrition Findings: Nutrition Notes Start: 08/23/18 15:56 Freq: Status: Active Protocol: Document 09/05/18 14:03 RM (Rec: 09/05/18 14:10 [email or web address]) Nutrition Notes Initial or Follow up Reassessment Current Diagnosis Acute Kidney Injury,CKD(stage I-IV),Coronary Artery Disease, Diabetes,Sepsis,Hypertension, Hyperlipidemia Other Pertinent Diagnosis PVD, Hx endometrial CA, Seizures, AKA Current Diet Cardiac/Consistent CHO,Mech soft w/Glucerna Labs/Tests A1c 8.3, K 5 Pertinent Medications Reviewed Height 5 ft Weight 70 kg [place] Body Weight (kg) 45.45 BMI 30.1 Subjective/Other Information Diet changed to Renal and Glucerna not carried over. Pt asleep at time of visit. Per nurse pt eats 25% of meals and drank the Glucerna when it was ordered. Percent of energy/protein needs met: 53%/55% Burn Absent Trauma Absent #1 Nutrition Diagnosis Inadequate oral intake As Evidenced by Signs and Symptoms pt meeting 53% of calorie and 55% of protein needs Diagnosis Progress(for reassessment Worsened documentation) Is patient on ventilator? No Is Patient Ambulatory and/or Out of Bed No REE-([facility]-confined to bed) 1411.104 Calculation Used for Recommendations Kcal/kg Additional Notes Protein Needs: 54-67g (0.8-1g/ kg 67kg adjBW) Fluid Needs: 1 ml/kcal Nutrition Intervention Change Diet Order: Renal Add Supplement/Snack (indicate name/kcal Nepro 1 daily /protein ) Provides kCal: 425 Provides Protein (gm) 19 Goal #1 Meet at least 75% of calorie and protein needs via PO and ONS intakes Anticipated Discharge Needs: Unable to determine at this time Follow-Up By: 09/07/18 Additional Comments Follow for PO and ONS intakes, DM diet education
[2018-09-06] MEDS: NACL 0.45% 1000 ML 1,000 ML IV SCH ×2 (04:40→17:49)
[2018-09-06] MEDS: APRESOLINE PO SCH ×3 (05:52→21:11)
[2018-09-06 06:42] LABS: Calcium 8.5 mg/dL (8.4-10.2)
[2018-09-06] MEDS: HumaLOG SUB-Q SCH ×4 (07:30→21:56)
--- NOTE | 2018-09-06 09:11 | Progress Note ---
Assessment and Plan Impression * Nonoliguric acute kidney injury secondary to prerenal azotemia * Ecoli UTI * Hyperkalemia * Hypertension * Type II DM * Metabolic acidosis * Seizure disorder * History of endometrial cancer * Depression Recommendation * Renal function is stable -serum creatinine is 1.7mg/dL * Encourage po hydration * Renal diet * Abx per primary team * Glycemic control per primary team Subjective Date of service: 09/06/18 Principal diagnosis: UTI Interval history: Patient has no complaints today. Objective - Vital Signs Vital signs: Vital Signs - 12hr 09/06/18 09/06/18 09/06/18 02:58 04:31 05:45 Temperature 98.2 F Pulse Rate 58 L Respiratory 24 Rate Blood Pressure 178/62 Blood Pressure 150/84 158/80 [Right] O2 Sat by Pulse 98 Oximetry - General Appearance General appearance: well-developed, well-nourished EENT: ATNC Respiratory: Present: Clear to Ascultation Cardiology: regular, S1S2 Gastrointestinal: normal Integumentary: no rash, warm and dry Musculoskeletal: other (no edema) Psychiatric: cooperative - Lab 08/30/18 05:24 09/06/18 06:06 Most recent lab results Calcium 8.5 mg/dL (8.4-10.2) 09/06/18 06:06 Phosphorus 3.70 mg/dL (2.5-4.5) 08/23/18 09:05 Magnesium 1.90 mg/dL (1.7-2.3) 08/28/18 13:05 Medications & Allergies - Medications Allergies/Adverse Reactions: Allergies No Known Allergies Allergy (Unverified 06/05/17 13:30) Home Medications: Home Medications Medication Instructions Recorded Confirmed Last Taken Type Aspirin 81 mg PO DAILY 11/14/17 08/22/18 Unknown History Megestrol Acetate 800 mg PO DAILY 11/14/17 08/22/18 Unknown History OLANZapine [Zyprexa] 2.5 mg PO DAILY 11/14/17 08/22/18 Unknown History FLUoxetine [PROzac] 40 mg PO QDAY #30 capsule 11/26/17 08/22/18 Unknown Rx Ferrous Sulfate [Ferrous Sulfate 300 mg PO QDAY #30 oral.liqd 11/26/17 08/22/18 Unknown Rx Oral Liq 300 Mg/5 Ml] Pantoprazole [Protonix TAB] 40 mg PO QDAY #30 tablet 11/26/17 08/22/18 Unknown Rx amLODIPine [Norvasc] 10 mg PO DAILY #30 tablet 11/26/17 08/22/18 Unknown Rx Carvedilol [Coreg] 25 mg PO BID tablet 12/06/17 08/22/18 Unknown Rx cloNIDine [Catapres] 0.1 mg PO Q8H tablet 12/06/17 08/22/18 Unknown Rx traMADol [Ultram 50 MG tab] 50 mg PO Q12HR PRN #20 tablet 12/06/17 08/22/18 Unknown Rx Acetaminophen 325 mg PO Q6H PRN 12/22/17 08/22/18 Unknown History Glucagon HCl 1 mg IM ONCE PRN 12/22/17 08/22/18 Unknown History Klor-Con 10 10 meq PO DAILY 12/22/17 08/22/18 Unknown History Lispro Insulin [HumaLOG] See Protocol SC ACHS 12/22/17 08/22/18 Unknown History Simethicone 80 mg PO Q8H PRN 12/22/17 08/22/18 Unknown History levETIRAcetam [Keppra ORAL LIQ] 750 mg PO BID 30 Days bottle 01/04/18 08/22/18 Unknown Rx Active Medications: Generic Name Dose Route Start Last Admin Trade Name Waqasq PRN Reason Stop Dose Admin Acetaminophen 650 mg 08/22/18 23:50 08/24/18 22:55 Tylenol PO 650 mg Q4H PRN Administration Pain MILD(1-3)/Fever >100.5/CARTER Amlodipine Besylate 10 mg 08/24/18 10:00 09/05/18 09:26 Norvasc PO 10 mg DAILY NASH Administration Lipase/Protease/Amylase 1 each 08/23/18 15:27 Pancrerosa [place] 10,500 Unit FEEDTUBE PRN PRN For Clogged Feeding Tube Aspirin 81 mg 08/24/18 10:00 09/05/18 09:26 Baby Aspirin PO 81 mg DAILY NASH Administration Carvedilol 25 mg 08/25/18 22:00 09/05/18 21:33 Coreg PO 25 mg BID NASH Administration Clonidine HCl 0.3 mg 08/24/18 10:00 08/31/18 12:21 Catapres-Tts Patch TD 0.3 mg QWEEK NASH Administration Dextrose 50 ml 08/22/18 23:50 D50w (25gm) Syringe IV PRN PRN Hypoglycemia Fluoxetine HCl 40 mg 08/24/18 10:00 09/05/18 09:26 Prozac PO 40 mg QDAY NASH Administration Heparin Sodium (Porcine) 5,000 unit 08/23/18 10:00 09/05/18 21:33 Heparin SUB-Q 5,000 unit Q12HR NASH Administration Hydralazine HCl 10 mg 08/24/18 07:32 09/02/18 10:34 Apresoline IV 10 mg Q4HR PRN Administration HTN >155/90 Hydralazine HCl 100 mg 08/28/18 14:00 09/06/18 05:52 Apresoline PO 100 mg Q8HR NASH Administration Sodium Chloride 1,000 mls @ 75 mls/hr 09/04/18 12:00 09/06/18 04:40 Nacl 0.45% 1000 Ml IV 75 mls/hr DIRECT NASH Administration Insulin Human Isoph/Insulin Regular 15 unit 08/25/18 12:00 09/05/18 18:27 Humulin 70/30 SUB-Q 15 unit BIDDIAB NASH Administration Insulin Human Lispro 0 unit 09/05/18 13:00 09/05/18 22:46 Humalog SUB-Q 4 unit ACHS NASH Administration Protocol Levetiracetam 1,000 mg 08/27/18 10:00 09/05/18 21:34 Keppra PO 1,000 mg BID NASH Administration Lorazepam 1 mg 08/23/18 01:58 Ativan IV Q4H PRN Seizures Olanzapine 2.5 mg 08/24/18 10:00 09/05/18 12:28 Zyprexa PO 2.5 mg DAILY NASH Administration Ondansetron HCl 4 mg 08/22/18 23:50 Zofran IV Q8H PRN Nausea And Vomiting Simple Syrup 15 ml 08/23/18 15:27 Simple Syrup FEEDTUBE PRN PRN Hypoglycemia Simple Syrup 30 ml 08/23/18 15:27 Simple Syrup FEEDTUBE PRN PRN Hypoglycemia Sodium Bicarbonate 325 mg 08/23/18 15:27 Sodium Bicarbonate FEEDTUBE PRN PRN For Clogged Feeding Tube Sodium Chloride 10 ml 08/22/18 23:50 09/05/18 21:34 Sodium Chloride Flush Syringe 10 Ml IV 10 ml BID NASH Administration Sodium Chloride 10 ml 08/23/18 00:12 Sodium Chloride Flush Syringe 10 Ml IV PRN PRN LINE FLUSH
--- NOTE | 2018-09-06 10:01 | Progress Note ---
Assessment and Plan Assessment and plan: 62-year-old female patient in assisted resident was admitted through emergency room with witnessed seizures and status epilepticus Patient was also noted to have hypertensive emergency requiring Cardene drip, admitted and stabilized in ICU, transferred to medical floor. Patient was placed on antiepileptic medications, seizure precautions, evaluated by neurology Patient had UTI present on admission positive for ESBL, placed on contact isolation, evaluated by ID, received meropenem for total 4 days, patient's symptoms significantly improved, ID advised to continue contact isolation. Patient did not have any new episodes of seizures, is hemodynamically and clinically stable for discharge However isolation rooms are not available in the assisted. Awaiting to return to assisted when isolation room is available CXR: Mild cardiomegaly and PULMONARY VASCULAR CONGESTION Assessment and plan; --Sepsis secondary to UTI /ESBL;present on admission Completed total 4 days of Meropenem,per ID continue contact isolation, awaiting isolation bed at SNF --Metabolic encephalopathy; present on admission; resolved Multifactorial, sepsis, seizures, acute on chronic kidney disease --Hypertensive Emergency: Present on admission. Blood pressures are better controlled today s/p cardine drip, on amlodipine, Coreg, clonidine, losartan, hydralazine spironolactone Held due to Hyperkalmia And when necessary hydralazine, --Status epilepticus: Seizure precautions, continue keppra 1000mg bid Ativan when necessary, neurology evaluated the patient. continue current recs. no further recommendation --CLITN on CKD 3: Vasomotor nephropathy Gentle hydration INITIALLY now discontinued, slow renal improvement noted but mildly elevated today, continue to monitor renal function, avoid nephrotoxins, creatinine level trending down Nephrology following --Hyperkalemia: correcting, continue to hold ARB. --Moderate to severe malnutrition: Nutrition supplements Supportive care, nutrition consulted and input noted --Severe debility; physical therapy occupational therapy --Insulin-dependent diabetes; Accu-Chek sliding scale coverage and ADA diet Insulin as needed,hemoglobin A1c 8.3 --History of left AKA: Supportive care --History of endometrial cancer status post hysterectomy,stable --History of major depression; continue current antidepression medications --Dyslipidemia; stable on lipid-lowering medicine, low-cholesterol diet --DVT Prophylaxis; Lovenox Plan of care reviewed with the patient and her nurse Discharge planning. Case management Pt will return to SNF when isolation room is available Patient is medically stable for discharge Case discussed during MDR History Interval history: Patient seen and examined medical records reviewed Patient is clinically stable awaiting placement in SNF/isolated room Patient has no new complaints Vital signs reviewed Hospitalist Physical - Constitutional Vitals: Temp Pulse Resp BP Pulse Ox 98.2 F 58 L 24 158/80 98 09/06/18 04:31 09/06/18 04:31 09/06/18 04:31 09/06/18 05:45 09/06/18 04:31 General appearance: Present: no acute distress, well-nourished - EENT Eyes: Present: PERRL, EOM intact - Neck Neck: Present: supple, normal ROM - Cardiovascular Rhythm: regular Heart Sounds: Present: S1 & S2 - Extremities Extremities: no ischemia, No edema, abnormal (left AKA) - Abdominal General gastrointestinal: soft, non-tender, non-distended, normal bowel sounds - Integumentary Integumentary: Present: clear, warm - Psychiatric Psychiatric: appropriate mood/affect, cooperative - Neurologic Neurologic: moves all extremities Results - Labs CBC & Chem 7: 08/30/18 05:24 09/06/18 06:06 Labs: Laboratory Last Values WBC 8.9 K/mm3 (4.5-11.0) 08/30/18 05:24 RBC 3.33 M/mm3 (3.65-5.03) L 08/30/18 05:24 Hgb 9.2 gm/dl (10.1-14.3) L 08/30/18 05:24 Hct 28.5 % (30.3-42.9) L 08/30/18 05:24 MCV 86 fl (79-97) 08/30/18 05:24 MCH 28 pg (28-32) 08/30/18 05:24 MCHC 32 % (30-34) 08/30/18 05:24 RDW 15.9 % (13.2-15.2) H 08/30/18 05:24 Plt Count 332 K/mm3 (140-440) 08/30/18 05:24 Lymph % (Auto) Pulp Operator 08/24/18 04:37 [place] % (Auto) Pulp Operator 08/24/18 04:37 Eos % (Auto) Pulp Operator 08/24/18 04:37 Baso % (Auto) Pulp Operator 08/24/18 04:37 Lymph # Pulp Operator 08/24/18 04:37 [place] # Pulp Operator 08/24/18 04:37 Eos # Pulp Operator 08/24/18 04:37 Baso # Pulp Operator 08/24/18 04:37 Add Manual Diff Complete 08/30/18 05:24 Total Counted 100 08/30/18 05:24 Seg Neutrophils % Pulp Operator 08/24/18 04:37 Seg Neuts % (Manual) 69.0 % (40.0-70.0) 08/30/18 05:24 2.0 % 08/30/18 05:24 14.0 % (13.4-35.0) 08/30/18 05:24 Reactive Lymphs % (Man) 0 % 08/30/18 05:24 13.0 % (0.0-7.3) H 08/30/18 05:24 2.0 % (0.0-4.3) 08/30/18 05:24 0 % (0.0-1.8) 08/30/18 05:24 0 % 08/30/18 05:24 0 % 08/30/18 05:24 0 % 08/30/18 05:24 0 % 08/30/18 05:24 Nucleated RBC % Not Reportable 08/30/18 05:24 Seg Neutrophils # Pulp Operator 08/24/18 04:37 Seg Neutrophils # Man 6.1 K/mm3 (1.8-7.7) 08/30/18 05:24 Band Neutrophils # 0.2 K/mm3 08/30/18 05:24 1.2 K/mm3 (1.2-5.4) 08/30/18 05:24 Abs React Lymphs (Man) 0.0 K/mm3 08/30/18 05:24 1.2 K/mm3 (0.0-0.8) H 08/30/18 05:24 0.2 K/mm3 (0.0-0.4) 08/30/18 05:24 0.0 K/mm3 (0.0-0.1) 08/30/18 05:24 0.0 K/mm3 08/30/18 05:24 0.0 K/mm3 08/30/18 05:24 0.0 K/mm3 08/30/18 05:24 Blast Cells # 0.0 K/mm3 08/30/18 05:24 WBC Morphology Not Reportable 08/30/18 05:24 Hypersegmented Neuts Not Reportable 08/30/18 05:24 Hyposegmented Neuts Not Reportable 08/30/18 05:24 Hypogranular Neuts Not Reportable 08/30/18 05:24 Not Reportable 08/30/18 05:24 Not Reportable 08/30/18 05:24 Not Reportable 08/30/18 05:24 Not Reportable 08/30/18 05:24 Not Reportable 08/30/18 05:24 Not Reportable 08/30/18 05:24 Consistent w auto 08/30/18 05:24 Not Reportable 08/30/18 05:24 Plt Clumps, EDTA Not Reportable 08/30/18 05:24 Not Reportable 08/30/18 05:24 Not Reportable 08/30/18 05:24 Not Reportable 08/30/18 05:24 Plt Morphology Comment Not Reportable 08/30/18 05:24 RBC Morphology Not Reportable 08/30/18 05:24 Dimorphic RBCs Not Reportable 08/30/18 05:24 Not Reportable 08/30/18 05:24 Not Reportable 08/30/18 05:24 Not Reportable 08/30/18 05:24 Not Reportable 08/30/18 05:24 Not Reportable 08/30/18 05:24 Few 08/30/18 05:24 Not Reportable 08/30/18 05:24 Not Reportable 08/30/18 05:24 Not Reportable 08/30/18 05:24 Not Reportable 08/30/18 05:24 Not Reportable 08/30/18 05:24 Not Reportable 08/30/18 05:24 Not Reportable 08/30/18 05:24 Not Reportable 08/30/18 05:24 Not Reportable 08/30/18 05:24 Not Reportable 08/30/18 05:24 Not Reportable 08/30/18 05:24 Not Reportable 08/30/18 05:24 Not Reportable 08/30/18 05:24 Acanthocytes (Spur) Not Reportable 08/30/18 05:24 Rouleaux Not Reportable 08/30/18 05:24 Not Reportable 08/30/18 05:24 Not Reportable 08/30/18 05:24 Not Reportable 08/30/18 05:24 Not Reportable 08/30/18 05:24 Hem Pathologist Commnt No 08/30/18 05:24 Sodium 140 mmol/L (137-145) 09/06/18 06:06 Potassium 4.6 mmol/L (3.6-5.0) 09/06/18 06:06 Chloride 106.1 mmol/L (98-107) 09/06/18 06:06 Carbon Dioxide 24 mmol/L (22-30) 09/06/18 06:06 15 mmol/L 09/06/18 06:06 BUN 29 mg/dL (7-17) H 09/06/18 06:06 1.7 mg/dL (0.7-1.2) H 09/06/18 06:06 Estimated GFR 37 ml/min 09/06/18 06:06 17 % 09/06/18 06:06 Glucose 86 mg/dL (65-100) 09/06/18 06:06 POC Glucose 108 (70-105) H 09/06/18 07:35 8.3 % (4-6) H 08/23/18 01:03 313 Mosm/kg 08/23/18 10:10 Lactic Acid 0.80 mmol/L (0.7-2.0) 08/23/18 10:10 7.7 mg/dL (3.5-7.6) H 08/23/18 09:05 Calcium 8.5 mg/dL (8.4-10.2) 09/06/18 06:06 Phosphorus 3.70 mg/dL (2.5-4.5) 08/23/18 09:05 Magnesium 1.90 mg/dL (1.7-2.3) 08/28/18 13:05 0.30 mg/dL (0.1-1.2) 08/23/18 09:05 AST 19 units/L (5-40) 08/23/18 09:05 ALT 7 units/L (7-56) 08/23/18 09:05 93 units/L (35-129) 08/23/18 09:05 612 units/L (30-135) H 08/23/18 09:05 7.4 g/dL (6.3-8.2) 08/23/18 09:05 3.1 g/dL (3.9-5) L 08/23/18 09:05 0.7 % 08/23/18 09:05 Triglycerides 160 mg/dL (2-149) H 08/23/18 04:08 Cholesterol 325 mg/dL (50-199) H 08/23/18 04:08 248 mg/dL (50-130) H 08/23/18 04:08 60 mg/dL (40-59) H 08/23/18 04:08 5.41 % 08/23/18 04:08 0.08 ng/mL/h (0.25-5.82) L 08/23/18 10:10 3 ng/dL () 08/23/18 10:10 Aldosterone/Renin Dir 37.5 Ratio (0.9-28.9) H 08/23/18 10:10 [place] (Yellow) 08/22/18 19:45 Cloudy (Clear) 08/22/18 19:45 6.0 (5.0-7.0) 08/22/18 19:45 Ur Specific [place] 1.024 (1.003-1.030) 08/22/18 19:45 >500 mg/dL (Negative) 08/22/18 19:45 150 mg/dL (Negative) 08/22/18 19:45 Neg mg/dL (Negative) 08/22/18 19:45 Sm (Negative) 08/22/18 19:45 Neg (Negative) 08/22/18 19:45 Neg (Negative) 08/22/18 19:45 < 2.0 mg/dL (<2.0) 08/22/18 19:45 Ur Leukocyte Esterase Tr (Negative) 08/22/18 19:45 42.0 /HPF (0.0-6.0) H 08/22/18 19:45 11.0 /HPF (0.0-6.0) 08/22/18 19:45 U Epithel Cells (Auto) 4.0 /HPF (0-13.0) 08/22/18 19:45 4+ /HPF (Negative) 08/22/18 19:45 Hyaline Casts 7 /LPF 08/22/18 19:45 1+ /HPF 08/22/18 19:45 Active Medications - Current Medications Current Medications: Generic Name Dose Route Start Last Admin Trade Name Freq PRN Reason Stop Dose Admin Acetaminophen 650 mg 08/22/18 23:50 08/24/18 22:55 Tylenol PO 650 mg Q4H PRN Administration Pain MILD(1-3)/Fever >100.5/CARTER Amlodipine Besylate 10 mg 08/24/18 10:00 09/05/18 09:26 Norvasc PO 10 mg DAILY NASH Administration Lipase/Protease/Amylase 1 each 08/23/18 15:27 Pancreaze 10,500 Unit FEEDTUBE PRN PRN For Clogged Feeding Tube Aspirin 81 mg 08/24/18 10:00 09/05/18 09:26 Baby Aspirin PO 81 mg DAILY NASH Administration Carvedilol 25 mg 08/25/18 22:00 09/05/18 21:33 Coreg PO 25 mg BID NASH Administration Clonidine HCl 0.3 mg 08/24/18 10:00 08/31/18 12:21 Catapres-Tts Patch TD 0.3 mg QWEEK NASH Administration Dextrose 50 ml 08/22/18 23:50 D50w (25gm) Syringe IV PRN PRN Hypoglycemia Fluoxetine HCl 40 mg 08/24/18 10:00 09/05/18 09:26 Prozac PO 40 mg QDAY NASH Administration Heparin Sodium (Porcine) 5,000 unit 08/23/18 10:00 09/05/18 21:33 Heparin SUB-Q 5,000 unit Q12HR NASH Administration Hydralazine HCl 10 mg 08/24/18 07:32 09/02/18 10:34 Apresoline IV 10 mg Q4HR PRN Administration HTN >155/90 Hydralazine HCl 100 mg 08/28/18 14:00 09/06/18 05:52 Apresoline PO 100 mg Q8HR NASH Administration Sodium Chloride 1,000 mls @ 75 mls/hr 09/04/18 12:00 09/06/18 04:40 Nacl 0.45% 1000 Ml IV 75 mls/hr DIRECT NASH Administration Insulin Human Isoph/Insulin Regular 15 unit 08/25/18 12:00 09/05/18 18:27 Humulin 70/30 SUB-Q 15 unit BIDDIAB NASH Administration Insulin Human Lispro 0 unit 09/05/18 13:00 09/05/18 22:46 Humalog SUB-Q 4 unit ACHS NASH Administration Protocol Levetiracetam 1,000 mg 08/27/18 10:00 09/05/18 21:34 Keppra PO 1,000 mg BID NASH Administration Lorazepam 1 mg 08/23/18 01:58 Ativan IV Q4H PRN Seizures Olanzapine 2.5 mg 08/24/18 10:00 09/05/18 12:28 Zyprexa PO 2.5 mg DAILY NASH Administration Ondansetron HCl 4 mg 08/22/18 23:50 Zofran IV Q8H PRN Nausea And Vomiting Simple Syrup 15 ml 08/23/18 15:27 Simple Syrup FEEDTUBE PRN PRN Hypoglycemia Simple Syrup 30 ml 08/23/18 15:27 Simple Syrup FEEDTUBE PRN PRN Hypoglycemia Sodium Bicarbonate 325 mg 08/23/18 15:27 Sodium Bicarbonate FEEDTUBE PRN PRN For Clogged Feeding Tube Sodium Chloride 10 ml 08/22/18 23:50 09/05/18 21:34 Sodium Chloride Flush Syringe 10 Ml IV 10 ml BID NASH Administration Sodium Chloride 10 ml 08/23/18 00:12 Sodium Chloride Flush Syringe 10 Ml IV PRN PRN LINE FLUSH Nutrition/Malnutrition Assess - Dietary Evaluation Nutrition/Malnutrition Findings: Nutrition Notes Start: 08/23/18 15:5 6 Freq: Status: Active Protocol: Document 09/05/18 14:03 RM (Rec: 09/05/18 14:10 RM [id number]) Nutrition Notes Initial or Follow up Reassessment Current Diagnosis Acute Kidney Injury,CKD(stage I-IV),Coronary Artery Disease, Diabetes,Sepsis,Hypertension, Hyperlipidemia Other Pertinent Diagnosis PVD, Hx endometrial CA, Seizures, AKA Current Diet Cardiac/Consistent CHO,Mech soft w/Glucerna Labs/Tests A1c 8.3, K 5 Pertinent Medications Reviewed Height 5 ft Weight 70 kg [place] Body Weight (kg) 45.45 BMI 30.1 Subjective/Other Information Diet changed to Renal and Glucerna not carried over. Pt asleep at time of visit. Per nurse pt eats 25% of meals and drank the Glucerna when it was ordered. Percent of energy/protein needs met: 53%/55% Burn Absent Trauma Absent #1 Nutrition Diagnosis Inadequate oral intake As Evidenced by Signs and Symptoms pt meeting 53% of calorie and 55% of protein needs Diagnosis Progress(for reassessment Worsened documentation) Is patient on ventilator? No Is Patient Ambulatory and/or Out of Bed No REE-([place]-confined to bed) 1411.104 Calculation Used for Recommendations Kcal/kg Additional Notes Protein Needs: 54-67g (0.8-1g/ kg 67kg adjBW) Fluid Needs: 1 ml/kcal Nutrition Intervention Change Diet Order: Renal Add Supplement/Snack (indicate name/kcal Nepro 1 daily /protein ) Provides kCal: 425 Provides Protein (gm) 19 Goal #1 Meet at least 75% of calorie and protein needs via PO and ONS intakes Anticipated Discharge Needs: Unable to determine at this time Follow-Up By: 09/08/18 Additional Comments Follow for PO and ONS intakes, DM diet education
[2018-09-06] MEDS: NORVASC PO SCH (10:16)
[2018-09-06] MEDS: PROzac PO SCH (10:16)
[2018-09-06] MEDS: KEPPRA PO SCH ×2 (10:16→21:09)
[2018-09-06] MEDS: COREG PO SCH ×2 (10:16→21:11)
[2018-09-06] MEDS: TYLENOL PO PRN (10:16)
[2018-09-06] MEDS: BABY ASPIRIN PO SCH (10:16)
[2018-09-06] MEDS: HEPARIN SUB-Q SCH ×2 (10:17→21:13)
[2018-09-06] MEDS: SODIUM CHLORIDE FLUSH SYRINGE 10 ML IV SCH ×2 (10:17→21:57)
[2018-09-07] MEDS: APRESOLINE PO SCH ×3 (05:11→22:55)
[2018-09-07] MEDS: HumaLOG SUB-Q SCH ×4 (08:39→22:49)
[2018-09-07] MEDS: NORVASC PO SCH (10:45)
[2018-09-07] MEDS: PROzac PO SCH (10:45)
[2018-09-07] MEDS: KEPPRA PO SCH ×2 (10:45→22:49)
[2018-09-07] MEDS: BABY ASPIRIN PO SCH (10:45)
[2018-09-07] MEDS: HEPARIN SUB-Q SCH ×2 (10:45→22:50)
[2018-09-07] MEDS: COREG PO SCH ×2 (10:45→22:54)
[2018-09-07] MEDS: SODIUM CHLORIDE FLUSH SYRINGE 10 ML IV SCH ×2 (10:46→22:50)
[2018-09-07] MEDS: CATAPRES-TTS PATCH TD SCH (10:46)
--- NOTE | 2018-09-07 12:43 | Progress Note ---
Assessment and Plan Assessment and plan: 62-year-old female patient in [facility] resident was admitted through emergency room with witnessed seizures and status epilepticus Patient was also noted to have hypertensive emergency requiring Cardene drip, admitted and stabilized in ICU, transferred to medical floor. Patient was placed on antiepileptic medications, seizure precautions, evaluated by neurology Patient had UTI present on admission positive for ESBL, placed on contact isolation, evaluated by ID, received meropenem for total 4 days, patient's symptoms significantly improved, ID advised to continue contact isolation. Patient did not have any new episodes of seizures, is hemodynamically and clinically stable for discharge However isolation rooms are not available in the [facility]. Awaiting to return to [facility] when isolation room is available CXR: Mild cardiomegaly and PULMONARY VASCULAR CONGESTION Assessment and plan; --Sepsis secondary to UTI /ESBL;present on admission Completed total 4 days of Meropenem,per ID continue contact isolation, awaiting isolation bed at SNF --Metabolic encephalopathy; present on admission; Multifactorial, sepsis, seizures, acute on chronic kidney disease The patient is alert and oriented 3 --Hypertensive Emergency: Present on admission. Blood pressures are better co ntrolled today s/p cardine drip, on amlodipine, Coreg, clonidine, losartan, hydralazine spironolactone Held due to Hyperkalmia, and PRN hydralazine, --Status epilepticus: Seizure precautions, continue keppra 1000mg bid Ativan when necessary, neurology evaluated the patient. continue current recs. no further recommendation --CLINT on CKD 3: Vasomotor nephropathy Gentle hydration INITIALLY now discontinued, slow renal improvement noted but mildly elevated today, continue to monitor renal function, avoid nephrotoxins, creatinine level trending down Nephrology following --Hyperkalemia: correcting, continue to hold ARB. --Moderate to severe malnutrition: Nutrition supplements Supportive care, nutrition consulted and input noted --Severe debility; physical therapy occupational therapy --Insulin-dependent diabetes; Accu-Chek sliding scale coverage and ADA diet Insulin as needed,hemoglobin A1c 8.3 --History of left AKA: Supportive care --History of endometrial cancer status post hysterectomy,stable --History of major depression; continue current antidepression medications --Dyslipidemia; stable on lipid-lowering medicine, low-cholesterol diet --DVT Prophylaxis; Lovenox Plan of care reviewed with the patient and her nurse Discharge planning. Case management Patient is medically stable for discharge Pt will return to SNF when isolation room is available History Interval history: Patient seen and examined in medical records No new complaints, vital signs stable Waiting for an isolation bed at [facility] Stable for discharge Hospitalist Physical - Constitutional Vitals: Temp Pulse Resp BP Pulse Ox 97.4 F L 55 L 20 174/58 97 09/07/18 05:42 09/07/18 05:11 09/07/18 05:42 09/07/18 05:42 09/06/18 21:04 General appearance: Present: no acute distress, well-nourished - EENT Eyes: Present: PERRL, EOM intact - Neck Neck: Present: supple, normal ROM - Respiratory Respiratory effort: normal Respiratory: bilateral: diminished, negative: rales, rhonchi, wheezing - Cardiovascular Rhythm: regular Heart Sounds: Present: S1 & S2 - Extremities Extremities: no ischemia, abnormal (left AKA) - Abdominal General gastrointestinal: soft, non-tender, non-distended, normal bowel sounds - Integumentary Integumentary: Present: clear, warm - Psychiatric Psychiatric: appropriate mood/affect, cooperative - Neurologic Neurologic: CNII-XII intact, moves all extremities Results - Labs CBC & Chem 7: 08/30/18 05:24 09/06/18 06:06 Labs: Laboratory Last Values WBC 8.9 K/mm3 (4.5-11.0) 08/30/18 05:24 RBC 3.33 M/mm3 (3.65-5.03) L 08/30/18 05:24 Hgb 9.2 gm/dl (10.1-14.3) L 08/30/18 05:24 Hct 28.5 % (30.3-42.9) L 08/30/18 05:24 MCV 86 fl (79-97) 08/30/18 05:24 MCH 28 pg (28-32) 08/30/18 05:24 MCHC 32 % (30-34) 08/30/18 05:24 RDW 15.9 % (13.2-15.2) H 08/30/18 05:24 Plt Count 332 K/mm3 (140-440) 08/30/18 05:24 Lymph % (Auto) Fretted Instrument Inspector 08/24/18 04:37 Coal % (Auto) Fretted Instrument Inspector 08/24/18 04:37 Eos % (Auto) Fretted Instrument Inspector 08/24/18 04:37 Baso % (Auto) Fretted Instrument Inspector 08/24/18 04:37 Lymph # Fretted Instrument Inspector 08/24/18 04:37 Coal # Fretted Instrument Inspector 08/24/18 04:37 Eos # Fretted Instrument Inspector 08/24/18 04:37 Baso # Fretted Instrument Inspector 08/24/18 04:37 Add Manual Diff Complete 08/30/18 05:24 Total Counted 100 08/30/18 05:24 Seg Neutrophils % Fretted Instrument Inspector 08/24/18 04:37 Seg Neuts % (Manual) 69.0 % (40.0-70.0) 08/30/18 05:24 2.0 % 08/30/18 05:24 14.0 % (13.4-35.0) 08/30/18 05:24 Reactive Lymphs % (Man) 0 % 08/30/18 05:24 13.0 % (0.0-7.3) H 08/30/18 05:24 2.0 % (0.0-4.3) 08/30/18 05:24 0 % (0.0-1.8) 08/30/18 05:24 0 % 08/30/18 05:24 0 % 08/30/18 05:24 0 % 08/30/18 05:24 0 % 08/30/18 05:24 Nucleated RBC % Not Reportable 08/30/18 05:24 Seg Neutrophils # Fretted Instrument Inspector 08/24/18 04:37 Seg Neutrophils # Man 6.1 K/mm3 (1.8-7.7) 08/30/18 05:24 Band Neutrophils # 0.2 K/mm3 08/30/18 05:24 1.2 K/mm3 (1.2-5.4) 08/30/18 05:24 Abs React Lymphs (Man) 0.0 K/mm3 08/30/18 05:24 1.2 K/mm3 (0.0-0.8) H 08/30/18 05:24 0.2 K/mm3 (0.0-0.4) 08/30/18 05:24 0.0 K/mm3 (0.0-0.1) 08/30/18 05:24 0.0 K/mm3 08/30/18 05:24 0.0 K/mm3 08/30/18 05:24 0.0 K/mm3 08/30/18 05:24 Blast Cells # 0.0 K/mm3 08/30/18 05:24 WBC Morphology Not Reportable 08/30/18 05:24 Hypersegmented Neuts Not Reportable 08/30/18 05:24 Hyposegmented Neuts Not Reportable 08/30/18 05:24 Hypogranular Neuts Not Reportable 08/30/18 05:24 Not Reportable 08/30/18 05:24 Not Reportable 08/30/18 05:24 Not Reportable 08/30/18 05:24 Not Reportable 08/30/18 05:24 Not Reportable 08/30/18 05:24 Not Reportable 08/30/18 05:24 Consistent w auto 08/30/18 05:24 Not Reportable 08/30/18 05:24 Plt Clumps, EDTA Not Reportable 08/30/18 05:24 Not Reportable 08/30/18 05:24 Not Reportable 08/30/18 05:24 Not Reportable 08/30/18 05:24 Plt Morphology Comment Not Reportable 08/30/18 05:24 RBC Morphology Not Reportable 08/30/18 05:24 Dimorphic RBCs Not Reportable 08/30/18 05:24 Not Reportable 08/30/18 05:24 Not Reportable 08/30/18 05:24 Not Reportable 08/30/18 05:24 Not Reportable 08/30/18 05:24 Not Reportable 08/30/18 05:24 Few 08/30/18 05:24 Not Reportable 08/30/18 05:24 Not Reportable 08/30/18 05:24 Not Reportable 08/30/18 05:24 Not Reportable 08/30/18 05:24 Not Reportable 08/30/18 05:24 Not Reportable 08/30/18 05:24 Not Reportable 08/30/18 05:24 Not Reportable 08/30/18 05:24 Not Reportable 08/30/18 05:24 Not Reportable 08/30/18 05:24 Not Reportable 08/30/18 05:24 Not Reportable 08/30/18 05:24 Not Reportable 08/30/18 05:24 Acanthocytes (Spur) Not Reportable 08/30/18 05:24 Rouleaux Not Reportable 08/30/18 05:24 Not Reportable 08/30/18 05:24 Not Reportable 08/30/18 05:24 Not Reportable 08/30/18 05:24 Not Reportable 08/30/18 05:24 Hem Pathologist Commnt No 08/30/18 05:24 Sodium 140 mmol/L (137-145) 09/06/18 06:06 Potassium 4.6 mmol/L (3.6-5.0) 09/06/18 06:06 Chloride 106.1 mmol/L (98-107) 09/06/18 06:06 Carbon Dioxide 24 mmol/L (22-30) 09/06/18 06:06 15 mmol/L 09/06/18 06:06 BUN 29 mg/dL (7-17) H 09/06/18 06:06 1.7 mg/dL (0.7-1.2) H 09/06/18 06:06 Estimated GFR 37 ml/min 09/06/18 06:06 17 % 09/06/18 06:06 Glucose 86 mg/dL (65-100) 09/06/18 06:06 POC Glucose 239 (70-105) H 09/07/18 11:31 8.3 % (4-6) H 08/23/18 01:03 313 Mosm/kg 08/23/18 10:10 Lactic Acid 0.80 mmol/L (0.7-2.0) 08/23/18 10:10 7.7 mg/dL (3.5-7.6) H 08/23/18 09:05 Calcium 8.5 mg/dL (8.4-10.2) 09/06/18 06:06 Phosphorus 3.70 mg/dL (2.5-4.5) 08/23/18 09:05 Magnesium 1.90 mg/dL (1.7-2.3) 08/28/18 13:05 0.30 mg/dL (0.1-1.2) 08/23/18 09:05 AST 19 units/L (5-40) 08/23/18 09:05 ALT 7 units/L (7-56) 08/23/18 09:05 93 units/L (35-129) 08/23/18 09:05 612 units/L (30-135) H 08/23/18 09:05 7.4 g/dL (6.3-8.2) 08/23/18 09:05 3.1 g/dL (3.9-5) L 08/23/18 09:05 0.7 % 08/23/18 09:05 Triglycerides 160 mg/dL (2-149) H 08/23/18 04:08 Cholesterol 325 mg/dL (50-199) H 08/23/18 04:08 248 mg/dL (50-130) H 08/23/18 04:08 60 mg/dL (40-59) H 08/23/18 04:08 5.41 % 08/23/18 04:08 0.08 ng/mL/h (0.25-5.82) L 08/23/18 10:10 3 ng/dL () 08/23/18 10:10 Aldosterone/Renin Dir 37.5 Ratio (0.9-28.9) H 08/23/18 10:10 Gracia (Yellow) 08/22/18 19:45 Cloudy (Clear) 08/22/18 19:45 6.0 (5.0-7.0) 08/22/18 19:45 Ur Specific Duncan 1.024 (1.003-1.030) 08/22/18 19:45 >500 mg/dL (Negative) 08/22/18 19:45 150 mg/dL (Negative) 08/22/18 19:45 Neg mg/dL (Negative) 08/22/18 19:45 Sm (Negative) 08/22/18 19:45 Neg (Negative) 08/22/18 19:45 Neg (Negative) 08/22/18 19:45 < 2.0 mg/dL (<2.0) 08/22/18 19:45 Ur Leukocyte Esterase Tr (Negative) 08/22/18 19:45 42.0 /HPF (0.0-6.0) H 08/22/18 19:45 11.0 /HPF (0.0-6.0) 08/22/18 19:45 U Epithel Cells (Auto) 4.0 /HPF (0-13.0) 08/22/18 19:45 4+ /HPF (Negative) 08/22/18 19:45 Hyaline Casts 7 /LPF 08/22/18 19:45 1+ /HPF 08/22/18 19:45 Active Medications - Current Medications Current Medications: Generic Name Dose Route Start Last Admin Trade Name Freq PRN Reason Stop Dose Admin Acetaminophen 650 mg 08/22/18 23:50 09/06/18 10:16 Tylenol PO 650 mg Q4H PRN Administration Pain MILD(1-3)/Fever >100.5/CARTER Amlodipine Besylate 10 mg 08/24/18 10:00 09/07/18 10:45 Norvasc PO 10 mg DAILY NASH Administration Lipase/Protease/Amylase 1 each 08/23/18 15:[address] 10,500 Unit FEEDTUBE PRN PRN For Clogged Feeding Tube Aspirin 81 mg 08/24/18 10:00 09/07/18 10:45 Baby Aspirin PO 81 mg DAILY NASH Administration Carvedilol 25 mg 08/25/18 22:00 09/07/18 10:45 Coreg PO 25 mg BID NASH Administration Clonidine HCl 0.3 mg 08/24/18 10:00 09/07/18 10:46 Catapres-Tts Patch TD 0.3 mg QWEEK NASH Administration Dextrose 50 ml 08/22/18 23:50 D50w (25gm) Syringe IV PRN PRN Hypoglycemia Fluoxetine HCl 40 mg 08/24/18 10:00 09/07/18 10:45 Prozac PO 40 mg QDAY NASH Administration Heparin Sodium (Porcine) 5,000 unit 08/23/18 10:00 09/07/18 10:45 Heparin SUB-Q 5,000 unit Q12HR NASH Administration Hydralazine HCl 10 mg 08/24/18 07:32 09/02/18 10:34 Apresoline IV 10 mg Q4HR PRN Administration HTN >155/90 Hydralazine HCl 100 mg 08/28/18 14:00 09/07/18 05:11 Apresoline PO 100 mg Q8HR NASH Administration Insulin Human Isoph/Insulin Regular 15 unit 08/25/18 12:00 09/07/18 10:47 Humulin 70/30 SUB-Q 15 unit BIDDIAB NASH Administration Insulin Human Lispro 0 unit 09/05/18 13:00 09/07/18 12:22 Humalog SUB-Q 4 unit ACHS NASH Administration Protocol Levetiracetam 1,000 mg 08/27/18 10:00 09/07/18 10:45 Keppra PO 1,000 mg BID NASH Administration Lorazepam 1 mg 08/23/18 01:58 Ativan IV Q4H PRN Seizures Olanzapine 2.5 mg 08/24/18 10:00 09/07/18 10:46 Zyprexa PO 2.5 mg DAILY NASH Administration Ondansetron HCl 4 mg 08/22/18 23:50 Zofran IV Q8H PRN Nausea And Vomiting Simple Syrup 15 ml 08/23/18 15:27 Simple Syrup FEEDTUBE PRN PRN Hypoglycemia Simple Syrup 30 ml 08/23/18 15:27 Simple Syrup FEEDTUBE PRN PRN Hypoglycemia Sodium Bicarbonate 325 mg 08/23/18 15:27 Sodium Bicarbonate FEEDTUBE PRN PRN For Clogged Feeding Tube Sodium Chloride 10 ml 08/22/18 23:50 09/07/18 10:46 Sodium Chloride Flush Syringe 10 Ml IV 10 ml BID NASH Administration Sodium Chloride 10 ml 08/23/18 00:12 Sodium Chloride Flush Syringe 10 Ml IV PRN PRN LINE FLUSH Nutrition/Malnutrition Assess - Dietary Evaluation Nutrition/Malnutrition Findings: Nutrition Notes Start: 08/23/18 15:56 Freq: Status: Active Protocol: Document 09/05/18 14:03 RM (Rec: 09/05/18 14:10 [email or web address]) Nutrition Notes Initial or Follow up Reassessment Current Diagnosis Acute Kidney Injury,CKD(stage I-IV),Coronary Artery Disease, Diabetes,Sepsis,Hypertension, Hyperlipidemia Other Pertinent Diagnosis PVD, Hx endometrial CA, Seizures, AKA Current Diet Cardiac/Consistent CHO,Mech soft w/Glucerna Labs/Tests A1c 8.3, K 5 Pertinent Medications Reviewed Height 5 ft Weight 70 kg [place] Body Weight (kg) 45.45 BMI 30.1 Subjective/Other Information Diet changed to Renal and Glucerna not carried over. Pt asleep at time of visit. Per nurse pt eats 25% of meals and drank the Glucerna when it was ordered. Percent of energy/protein needs met: 53%/55% Burn Absent Trauma Absent #1 Nutrition Diagnosis Inadequate oral intake As Evidenced by Signs and Symptoms pt meeting 53% of calorie and 55% of protein needs Diagnosis Progress(for reassessment Worsened documentation) Is patient on ventilator? No Is Patient Ambulatory and/or Out of Bed No REE-([facility]-confined to bed) 1411.104 Calculation Used for Recommendations Kcal/kg Additional Notes Protein Needs: 54-67g (0.8-1g/ kg 67kg adjBW) Fluid Needs: 1 ml/kcal Nutrition Intervention Change Diet Order: Renal Add Supplement/Snack (indicate name/kcal Nepro 1 daily /protein ) Provides kCal: 425 Provides Protein (gm) 19 Goal #1 Meet at least 75% of calorie and protein needs via PO and ONS intakes Anticipated Discharge Needs: Unable to determine at this time Follow-Up By: 09/08/18 Additional Comments Follow for PO and ONS intakes, DM diet education
[2018-09-07 14:13] LABS: Calcium 8.5 mg/dL (8.4-10.2)
--- NOTE | 2018-09-07 17:57 | Progress Note ---
Assessment and Plan Impression * Nonoliguric acute kidney injury secondary to prerenal azotemia on stage III CKD --Baseline SCr 1.4-1.7mg/dL * Ecoli UTI * Hyperkalemia * Hypertension * Type II DM * Metabolic acidosis * Seizure disorder * History of endometrial cancer * Depression Recommendation * Renal function remains stable - at baseline * Encourage po hydration * Renal diet * Abx per primary team * Glycemic control per primary team * Avoid nephrotoxins * Dose medications for renal function Subjective Date of service: 09/07/18 Principal diagnosis: UTI Interval history: Patient has no complaints today. Objective - Vital Signs Vital signs: Vital Signs - 12hr 09/07/18 09/07/18 11:33 16:54 Temperature 98.8 F 99.1 F Pulse Rate 66 60 Respiratory 20 20 Rate Blood Pressure 177/54 157/52 O2 Sat by Pulse 95 96 Oximetry - General Appearance General appearance: well-developed, well-nourished EENT: ATNC, other (poor dentition) Respiratory: Present: Clear to Ascultation Cardiology: regular, S1S2 Gastrointestinal: normal, no tenderness, no distended Integumentary: no rash, warm and dry Psychiatric: cooperative - Lab 08/30/18 05:24 09/07/18 09:41 Most recent lab results Calcium 8.5 mg/dL (8.4-10.2) 09/07/18 09:41 Phosphorus 3.70 mg/dL (2.5-4.5) 08/23/18 09:05 Magnesium 1.90 mg/dL (1.7-2.3) 08/28/18 13:05 Medications & Allergies - Medications Allergies/Adverse Reactions: Allergies No Known Allergies Allergy (Unverified 06/05/17 13:30) Home Medications: Home Medications Medication Instructions Recorded Confirmed Last Taken Type Aspirin 81 mg PO DAILY 11/14/17 08/22/18 Unknown History Megestrol Acetate 800 mg PO DAILY 11/14/17 08/22/18 Unknown History OLANZapine [Zyprexa] 2.5 mg PO DAILY 11/14/17 08/22/18 Unknown History FLUoxetine [PROzac] 40 mg PO QDAY #30 capsule 11/26/17 08/22/18 Unknown Rx Ferrous Sulfate [Ferrous Sulfate 300 mg PO QDAY #30 oral.liqd 11/26/17 08/22/18 Unknown Rx Oral Liq 300 Mg/5 Ml] Pantoprazole [Protonix TAB] 40 mg PO QDAY #30 tablet 11/26/17 08/22/18 Unknown Rx amLODIPine [Norvasc] 10 mg PO DAILY #30 tablet 11/26/17 08/22/18 Unknown Rx Carvedilol [Coreg] 25 mg PO BID tablet 12/06/17 08/22/18 Unknown Rx cloNIDine [Catapres] 0.1 mg PO Q8H tablet 12/06/17 08/22/18 Unknown Rx traMADol [Ultram 50 MG tab] 50 mg PO Q12HR PRN #20 tablet 12/06/17 08/22/18 Unknown Rx Acetaminophen 325 mg PO Q6H PRN 12/22/17 08/22/18 Unknown History Glucagon HCl 1 mg IM ONCE PRN 12/22/17 08/22/18 Unknown History Klor-Con 10 10 meq PO DAILY 12/22/17 08/22/18 Unknown History Lispro Insulin [HumaLOG] See Protocol SC ACHS 12/22/17 08/22/18 Unknown History Simethicone 80 mg PO Q8H PRN 12/22/17 08/22/18 Unknown History levETIRAcetam [Keppra ORAL LIQ] 750 mg PO BID 30 Days bottle 01/04/18 08/22/18 Unknown Rx Active Medications: Generic Name Dose Route Start Last Admin Trade Name Freq PRN Reason Stop Dose Admin Acetaminophen 650 mg 08/22/18 23:50 09/06/18 10:16 Tylenol PO 650 mg Q4H PRN Administration Pain MILD(1-3)/Fever >100.5/CARTER Amlodipine Besylate 10 mg 08/24/18 10:00 09/07/18 10:45 Norvasc PO 10 mg DAILY NASH Administration Lipase/Protease/Amylase 1 each 08/23/18 15:27 Pancrerosa Billingsley 10,500 Unit FEEDTUBE PRN PRN For Clogged Feeding Tube Aspirin 81 mg 08/24/18 10:00 09/07/18 10:45 Baby Aspirin PO 81 mg DAILY NASH Administration Carvedilol 25 mg 08/25/18 22:00 09/07/18 10:45 Coreg PO 25 mg BID NASH Administration Clonidine HCl 0.3 mg 08/24/18 10:00 09/07/18 10:46 Catapres-Tts Patch TD 0.3 mg QWEEK NASH Administration Dextrose 50 ml 08/22/18 23:50 D50w (25gm) Syringe IV PRN PRN Hypoglycemia Fluoxetine HCl 40 mg 08/24/18 10:00 09/07/18 10:45 Prozac PO 40 mg QDAY NASH Administration Heparin Sodium (Porcine) 5,000 unit 08/23/18 10:00 09/07/18 10:45 Heparin SUB-Q 5,000 unit Q12HR NASH Administration Hydralazine HCl 10 mg 08/24/18 07:32 09/02/18 10:34 Apresoline IV 10 mg Q4HR PRN Administration HTN >155/90 Hydralazine HCl 100 mg 08/28/18 14:00 09/07/18 15:12 Apresoline PO 100 mg Q8HR NASH Administration Insulin Human Isoph/Insulin Regular 15 unit 08/25/18 12:00 09/07/18 10:47 Humulin 70/30 SUB-Q 15 unit BIDDIAB NASH Administration Insulin Human Lispro 0 unit 09/05/18 13:00 09/07/18 12:22 Humalog SUB-Q 4 unit ACHS NASH Administration Protocol Levetiracetam 1,000 mg 08/27/18 10:00 09/07/18 10:45 Keppra PO 1,000 mg BID NASH Administration Lorazepam 1 mg 08/23/18 01:58 Ativan IV Q4H PRN Seizures Olanzapine 2.5 mg 08/24/18 10:00 09/07/18 10:46 Zyprexa PO 2.5 mg DAILY NASH Administration Ondansetron HCl 4 mg 08/22/18 23:50 Zofran IV Q8H PRN Nausea And Vomiting Simple Syrup 15 ml 08/23/18 15:27 Simple Syrup FEEDTUBE PRN PRN Hypoglycemia Simple Syrup 30 ml 08/23/18 15:27 Simple Syrup FEEDTUBE PRN PRN Hypoglycemia Sodium Bicarbonate 325 mg 08/23/18 15:27 Sodium Bicarbonate FEEDTUBE PRN PRN For Clogged Feeding Tube Sodium Chloride 10 ml 08/22/18 23:50 09/07/18 10:46 Sodium Chloride Flush Syringe 10 Ml IV 10 ml BID NASH Administration Sodium Chloride 10 ml 08/23/18 00:12 Sodium Chloride Flush Syringe 10 Ml IV PRN PRN LINE FLUSH
[2018-09-07] MEDS: TYLENOL PO PRN (20:34)
[2018-09-08] MEDS: APRESOLINE PO SCH ×3 (05:07→23:05)
[2018-09-08 07:57] LABS: Calcium 8.8 mg/dL (8.4-10.2)
[2018-09-08] MEDS: HumaLOG SUB-Q SCH ×4 (08:24→22:56)
--- NOTE | 2018-09-08 09:45 | Progress Note ---
Assessment and Plan Impression * Nonoliguric acute kidney injury secondary to prerenal azotemia on stage III CKD --Baseline SCr 1.4-1.7mg/dL * ESBL Ecoli UTI * Hyperkalemia * Hypertension * Type II DM * Metabolic acidosis * Seizure disorder * History of endometrial cancer * Depression Recommendation * Renal function remains stable - at baseline * Encourage po hydration * Renal diet * Abx per primary team * Glycemic control per primary team * Avoid nephrotoxins * Dose medications for renal function * Discharge planning in progress Subjective Date of service: 09/08/18 Principal diagnosis: UTI Interval history: Patient has no complaints today. She is resting comfortably this AM. Objective - Vital Signs Vital signs: Vital Signs - 12hr 09/07/18 09/07/18 09/08/18 22:54 22:55 04:59 Temperature 97.9 F Pulse Rate 61 61 63 Respiratory 18 Rate Blood Pressure 170/53 170/53 140/46 O2 Sat by Pulse 98 Oximetry 09/08/18 05:07 Temperature Pulse Rate 62 Respiratory Rate Blood Pressure 92/59 O2 Sat by Pulse Oximetry - General Appearance General appearance: well-developed, well-nourished EENT: ATNC Respiratory: Present: Clear to Ascultation Cardiology: regular, S1S2 Gastrointestinal: normal Integumentary: no rash, warm and dry Neurologic: no focal deficit Musculoskeletal: other (no edema; left BKA) Psychiatric: cooperative - Lab 08/30/18 05:24 09/08/18 06:02 Most recent lab results Calcium 8.8 mg/dL (8.4-10.2) 09/08/18 06:02 Phosphorus 3.70 mg/dL (2.5-4.5) 08/23/18 09:05 Magnesium 1.90 mg/dL (1.7-2.3) 08/28/18 13:05 Medications & Allergies - Medications Allergies/Adverse Reactions: Allergies No Known Allergies Allergy (Unverified 06/05/17 13:30) Home Medications: Home Medications Medication Instructions Recorded Confirmed Last Taken Type Aspirin 81 mg PO DAILY 11/14/17 08/22/18 Unknown History Megestrol Acetate 800 mg PO DAILY 11/14/17 08/22/18 Unknown History OLANZapine [Zyprexa] 2.5 mg PO DAILY 11/14/17 08/22/18 Unknown History FLUoxetine [PROzac] 40 mg PO QDAY #30 capsule 11/26/17 08/22/18 Unknown Rx Ferrous Sulfate [Ferrous Sulfate 300 mg PO QDAY #30 oral.liqd 11/26/17 08/22/18 Unknown Rx Oral Liq 300 Mg/5 Ml] Pantoprazole [Protonix TAB] 40 mg PO QDAY #30 tablet 11/26/17 08/22/18 Unknown Rx amLODIPine [Norvasc] 10 mg PO DAILY #30 tablet 11/26/17 08/22/18 Unknown Rx Carvedilol [Coreg] 25 mg PO BID tablet 12/06/17 08/22/18 Unknown Rx cloNIDine [Catapres] 0.1 mg PO Q8H tablet 12/06/17 08/22/18 Unknown Rx traMADol [Ultram 50 MG tab] 50 mg PO Q12HR PRN #20 tablet 12/06/17 08/22/18 Un known Rx Acetaminophen 325 mg PO Q6H PRN 12/22/17 08/22/18 Unknown History Glucagon HCl 1 mg IM ONCE PRN 12/22/17 08/22/18 Unknown History Klor-Con 10 10 meq PO DAILY 12/22/17 08/22/18 Unknown History Lispro Insulin [HumaLOG] See Protocol SC ACHS 12/22/17 08/22/18 Unknown History Simethicone 80 mg PO Q8H PRN 12/22/17 08/22/18 Unknown History levETIRAcetam [Keppra ORAL LIQ] 750 mg PO BID 30 Days bottle 01/04/18 08/22/18 Unknown Rx Active Medications: Generic Name Dose Route Start Last Admin Trade Name Tobin PRN Reason Stop Dose Admin Acetaminophen 650 mg 08/22/18 23:50 09/07/18 20:34 Tylenol PO 650 mg Q4H PRN Administration Pain MILD(1-3)/Fever >100.5/CARTER Amlodipine Besylate 10 mg 08/24/18 10:00 09/07/18 10:45 Norvasc PO 10 mg DAILY NASH Administration Lipase/Protease/Amylase 1 each 08/23/18 15:27 Teresa Billingsley 10,500 Unit FEEDTUBE PRN PRN For Clogged Feeding Tube Aspirin 81 mg 08/24/18 10:00 09/07/18 10:45 Baby Aspirin PO 81 mg DAILY NASH Administration Carvedilol 25 mg 08/25/18 22:00 09/07/18 22:54 Coreg PO 25 mg BID NASH Administration Clonidine HCl 0.3 mg 08/24/18 10:00 09/07/18 10:46 Catapres-Tts Patch TD 0.3 mg QWEEK NASH Administration Dextrose 50 ml 08/22/18 23:50 D50w (25gm) Syringe IV PRN PRN Hypoglycemia Fluoxetine HCl 40 mg 08/24/18 10:00 09/07/18 10:45 Prozac PO 40 mg QDAY NASH Administration Heparin Sodium (Porcine) 5,000 unit 08/23/18 10:00 09/07/18 22:50 Heparin SUB-Q 5,000 unit Q12HR NASH Administration Hydralazine HCl 10 mg 08/24/18 07:32 09/02/18 10:34 Apresoline IV 10 mg Q4HR PRN Administration HTN >155/90 Hydralazine HCl 100 mg 08/28/18 14:00 09/08/18 05:07 Apresoline PO Not Given Q8HR NASH Insulin Human Isoph/Insulin Regular 15 unit 08/25/18 12:00 09/08/18 08:46 Humulin 70/30 SUB-Q 15 unit BIDDIAB NASH Administration Insulin Human Lispro 0 unit 09/05/18 13:00 09/08/18 08:24 Humalog SUB-Q Not Given ACHS [facility] Protocol Levetiracetam 1,000 mg 08/27/18 10:00 09/07/18 22:49 Keppra PO 1,000 mg BID NASH Administration Lorazepam 1 mg 08/23/18 01:58 Ativan IV Q4H PRN Seizures Olanzapine 2.5 mg 08/24/18 10:00 09/07/18 10:46 Zyprexa PO 2.5 mg DAILY NASH Administration Ondansetron HCl 4 mg 08/22/18 23:50 Zofran IV Q8H PRN Nausea And Vomiting Simple Syrup 15 ml 08/23/18 15:27 Simple Syrup FEEDTUBE PRN PRN Hypoglycemia Simple Syrup 30 ml 08/23/18 15:27 Simple Syrup FEEDTUBE PRN PRN Hypoglycemia Sodium Bicarbonate 325 mg 08/23/18 15:27 Sodium Bicarbonate FEEDTUBE PRN PRN For Clogged Feeding Tube Sodium Chloride 10 ml 08/22/18 23:50 09/07/18 22:50 Sodium Chloride Flush Syringe 10 Ml IV 10 ml BID NASH Administration Sodium Chloride 10 ml 08/23/18 00:12 Sodium Chloride Flush Syringe 10 Ml IV PRN PRN LINE FLUSH
--- NOTE | 2018-09-08 09:56 | Progress Note ---
Assessment and Plan Assessment and plan: 62-year-old female patient in senior care resident was admitted through emergency room with witnessed seizures and status epilepticus Patient was also noted to have hypertensive emergency requiring Cardene drip, admitted and stabilized in ICU, transferred to medical floor. Patient was placed on antiepileptic medications, seizure precautions, evaluated by neurology Patient had UTI present on admission positive for ESBL, placed on contact isolation, evaluated by ID, received meropenem for total 4 days, patient's symptoms significantly improved, ID advised to continue contact isolation. Patient did not have any new episodes of seizures, is hemodynamically and clinically stable for discharge However isolation rooms are not available in the senior care. Awaiting to return to senior care when isolation room is available CXR: Mild cardiomegaly and pulm vasc congestion Assessment and plan; --Sepsis secondary to UTI /ESBL;present on admission Completed total 4 days of Meropenem,per ID continue contact isolation, awaiting isolation bed at SNF --Metabolic encephalopathy; present on admission; Multifactorial, sepsis, seizures, acute on chronic kidney disease The patient is alert and oriented 3 --Hypertensive Emergency: Present on admission. Blood pressures are better controlled today s/p cardine drip, on amlodipine, Coreg, clonidine, losartan, hydralazine spironolactone Held due to Hyperkalmia, and PRN hydralazine, --Status epilepticus: Seizure precautions, continue keppra 1000mg bid Ativan when necessary, neurology evaluated the patient. continue current recs. no further recommendation --CLINT on CKD 3: Vasomotor nephropathy Gentle hydration INITIALLY now discontinued, slow renal improvement noted but mildly elevated today, continue to monitor renal function, avoid nephrotoxins, creatinine level trending down Nephrology following --Hyperkalemia: correcting, continue to hold ARB. --Moderate to severe malnutrition: Nutrition supplements Supportive care, nutrition consulted and input noted --Severe debility; physical therapy occupational therapy --Insulin-dependent diabetes; Accu-Chek sliding scale coverage and ADA diet Insulin as needed,hemoglobin A1c 8.3 --History of left AKA: Supportive care --History of endometrial cancer status post hysterectomy,stable --History of major depression; continue current antidepression medications --Dyslipidemia; stable on lipid-lowering medicine, low-cholesterol diet --DVT Prophylaxis; Lovenox Plan of care reviewed with the patient and her nurse Discharge planning. Case management Patient is medically stable for discharge Pt will return to SNF when isolation room is available History Interval history: Patient seen and examined medical records Patient inspected no new complaints Vital signs reviewed Awaiting to return to SNF when n isolation bed is available Hospitalist Physical - Constitutional Vitals: Temp Pulse Resp BP Pulse Ox 97.9 F 62 18 92/59 98 09/08/18 04:59 09/08/18 05:07 09/08/18 04:59 09/08/18 05:07 09/08/18 04:59 General appearance: Present: no acute distress, well-nourished - EENT Eyes: Present: PERRL, EOM intact - Neck Neck: Present: supple, normal ROM - Respiratory Respiratory effort: normal, labored Respiratory: bilateral: diminished, negative: rales, rhonchi, wheezing - Cardiovascular Rhythm: regular Heart Sounds: Present: S1 & S2 - Extremities Extremities: no ischemia, pulses intact, abnormal (status post AKA and left) - Abdominal General gastrointestinal: soft, non-tender, non-distended, normal bowel sounds - Integumentary Integumentary: Present: clear, warm - Psychiatric Psychiatric: appropriate mood/affect, cooperative - Neurologic Neurologic: CNII-XII intact, moves all extremities Results - Labs CBC & Chem 7: 08/30/18 05:24 09/08/18 06:02 Labs: Laboratory Last Values WBC 8.9 K/mm3 (4.5-11.0) 08/30/18 05:24 RBC 3.33 M/mm3 (3.65-5.03) L 08/30/18 05:24 Hgb 9.2 gm/dl (10.1-14.3) L 08/30/18 05:24 Hct 28.5 % (30.3-42.9) L 08/30/18 05:24 MCV 86 fl (79-97) 08/30/18 05:24 MCH 28 pg (28-32) 08/30/18 05:24 MCHC 32 % (30-34) 08/30/18 05:24 RDW 15.9 % (13.2-15.2) H 08/30/18 05:24 Plt Count 332 K/mm3 (140-440) 08/30/18 05:24 Lymph % (Auto) Machine Packager 08/24/18 04:37 Will % (Auto) Machine Packager 08/24/18 04:37 Eos % (Auto) Machine Packager 08/24/18 04:37 Baso % (Auto) Machine Packager 08/24/18 04:37 Lymph # Machine Packager 08/24/18 04:37 Will # Machine Packager 08/24/18 04:37 Eos # Machine Packager 08/24/18 04:37 Baso # Machine Packager 08/24/18 04:37 Add Manual Diff Complete 08/30/18 05:24 Total Counted 100 08/30/18 05:24 Seg Neutrophils % Machine Packager 08/24/18 04:37 Seg Neuts % (Manual) 69.0 % (40.0-70.0) 08/30/18 05:24 2.0 % 08/30/18 05:24 14.0 % (13.4-35.0) 08/30/18 05:24 Reactive Lymphs % (Man) 0 % 08/30/18 05:24 13.0 % (0.0-7.3) H 08/30/18 05:24 2.0 % (0.0-4.3) 08/30/18 05:24 0 % (0.0-1.8) 08/30/18 05:24 0 % 08/30/18 05:24 0 % 08/30/18 05:24 0 % 08/30/18 05:24 0 % 08/30/18 05:24 Nucleated RBC % Not Reportable 08/30/18 05:24 Seg Neutrophils # Machine Packager 08/24/18 04:37 Seg Neutrophils # Man 6.1 K/mm3 (1.8-7.7) 08/30/18 05:24 Band Neutrophils # 0.2 K/mm3 08/30/18 05:24 1.2 K/mm3 (1.2-5.4) 08/30/18 05:24 Abs React Lymphs (Man) 0.0 K/mm3 08/30/18 05:24 1.2 K/mm3 (0.0-0.8) H 08/30/18 05:24 0.2 K/mm3 (0.0-0.4) 08/30/18 05:24 0.0 K/mm3 (0.0-0.1) 08/30/18 05:24 0.0 K/mm3 08/30/18 05:24 0.0 K/mm3 08/30/18 05:24 0.0 K/mm3 08/30/18 05:24 Blast Cells # 0.0 K/mm3 08/30/18 05:24 WBC Morphology Not Reportable 08/30/18 05:24 Hypersegmented Neuts Not Reportable 08/30/18 05:24 Hyposegmented Neuts Not Reportable 08/30/18 05:24 Hypogranular Neuts Not Reportable 08/30/18 05:24 Not Reportable 08/30/18 05:24 Not Reportable 08/30/18 05:24 Not Reportable 08/30/18 05:24 Not Reportable 08/30/18 05:24 Not Reportable 08/30/18 05:24 Not Reportable 08/30/18 05:24 Consistent w auto 08/30/18 05:24 Not Reportable 08/30/18 05:24 Plt Clumps, EDTA Not Reportable 08/30/18 05:24 Not Reportable 08/30/18 05:24 Not Reportable 08/30/18 05:24 Not Reportable 08/30/18 05:24 Plt Morphology Comment Not Reportable 08/30/18 05:24 RBC Morphology Not Reportable 08/30/18 05:24 Dimorphic RBCs Not Reportable 08/30/18 05:24 Not Reportable 08/30/18 05:24 Not Reportable 08/30/18 05:24 Not Reportable 08/30/18 05:24 Not Reportable 08/30/18 05:24 Not Reportable 08/30/18 05:24 Few 08/30/18 05:24 Not Reportable 08/30/18 05:24 Not Reportable 08/30/18 05:24 Not Reportable 08/30/18 05:24 Not Reportable 08/30/18 05:24 Not Reportable 08/30/18 05:24 Not Reportable 08/30/18 05:24 Not Reportable 08/30/18 05:24 Not Reportable 08/30/18 05:24 Not Reportable 08/30/18 05:24 Not Reportable 08/30/18 05:24 Not Reportable 08/30/18 05:24 Not Reportable 08/30/18 05:24 Not Reportable 08/30/18 05:24 Acanthocytes (Spur) Not Reportable 08/30/18 05:24 Rouleaux Not Reportable 08/30/18 05:24 Not Reportable 08/30/18 05:24 Not Reportable 08/30/18 05:24 Not Reportable 08/30/18 05:24 Not Reportable 08/30/18 05:24 Hem Pathologist Commnt No 08/30/18 05:24 Sodium 141 mmol/L (137-145) 09/08/18 06:02 Potassium 4.3 mmol/L (3.6-5.0) 09/08/18 06:02 Chloride 105.8 mmol/L (98-107) 09/08/18 06:02 Carbon Dioxide 23 mmol/L (22-30) 09/08/18 06:02 17 mmol/L 09/08/18 06:02 BUN 30 mg/dL (7-17) H 09/08/18 06:02 1.6 mg/dL (0.7-1.2) H 09/08/18 06:02 Estimated GFR 39 ml/min 09/08/18 06:02 19 % 09/08/18 06:02 Glucose 74 mg/dL (65-100) 09/08/18 06:02 POC Glucose 99 (70-105) 09/08/18 08:04 8.3 % (4-6) H 08/23/18 01:03 313 Mosm/kg 08/23/18 10:10 Lactic Acid 0.80 mmol/L (0.7-2.0) 08/23/18 10:10 7.7 mg/dL (3.5-7.6) H 08/23/18 09:05 Calcium 8.8 mg/dL (8.4-10.2) 09/08/18 06:02 Phosphorus 3.70 mg/dL (2.5-4.5) 08/23/18 09:05 Magnesium 1.90 mg/dL (1.7-2.3) 08/28/18 13:05 0.30 mg/dL (0.1-1.2) 08/23/18 09:05 AST 19 units/L (5-40) 08/23/18 09:05 ALT 7 units/L (7-56) 08/23/18 09:05 93 units/L (35-129) 08/23/18 09:05 612 units/L (30-135) H 08/23/18 09:05 7.4 g/dL (6.3-8.2) 08/23/18 09:05 3.1 g/dL (3.9-5) L 08/23/18 09:05 0.7 % 08/23/18 09:05 Triglycerides 160 mg/dL (2-149) H 08/23/18 04:08 Cholesterol 325 mg/dL (50-199) H 08/23/18 04:08 248 mg/dL (50-130) H 08/23/18 04:08 60 mg/dL (40-59) H 08/23/18 04:08 5.41 % 08/23/18 04:08 0.08 ng/mL/h (0.25-5.82) L 08/23/18 10:10 3 ng/dL () 08/23/18 10:10 Aldosterone/Renin Dir 37.5 Ratio (0.9-28.9) H 08/23/18 10:10 [place] (Yellow) 08/22/18 19:45 Cloudy (Clear) 08/22/18 19:45 6.0 (5.0-7.0) 08/22/18 19:45 Ur Specific [place] 1.024 (1.003-1.030) 08/22/18 19:45 >500 mg/dL (Negative) 08/22/18 19:45 150 mg/dL (Negative) 08/22/18 19:45 Neg mg/dL (Negative) 08/22/18 19:45 Sm (Negative) 08/22/18 19:45 Neg (Negative) 08/22/18 19:45 Neg (Negative) 08/22/18 19:45 < 2.0 mg/dL (<2.0) 08/22/18 19:45 Ur Leukocyte Esterase Tr (Negative) 08/22/18 19:45 42.0 /HPF (0.0-6.0) H 08/22/18 19:45 11.0 /HPF (0.0-6.0) 08/22/18 19:45 U Epithel Cells (Auto) 4.0 /HPF (0-13.0) 08/22/18 19:45 4+ /HPF (Negative) 08/22/18 19:45 Hyaline Casts 7 /LPF 08/22/18 19:45 1+ /HPF 08/22/18 19:45 Active Medications - Current Medications Current Medications: Generic Name Dose Route Start Last Admin Trade Name Freq PRN Reason Stop Dose Admin Acetaminophen 650 mg 08/22/18 23:50 09/07/18 20:34 Tylenol PO 650 mg Q4H PRN Administration Pain MILD(1-3)/Fever >100.5/CARTER Amlodipine Besylate 10 mg 08/24/18 10:00 09/07/18 10:45 Norvasc PO 10 mg DAILY NASH Administration Lipase/Protease/Amylase 1 each 08/23/18 15:[address] 10,500 Unit FEEDTUBE PRN PRN For Clogged Feeding Tube Aspirin 81 mg 08/24/18 10:00 09/07/18 10:45 Baby Aspirin PO 81 mg DAILY NASH Administration Carvedilol 25 mg 08/25/18 22:00 09/07/18 22:54 Coreg PO 25 mg BID NASH Administration Clonidine HCl 0.3 mg 08/24/18 10:00 09/07/18 10:46 Catapres-Tts Patch TD 0.3 mg QWEEK NASH Administration Dextrose 50 ml 08/22/18 23:50 D50w (25gm) Syringe IV PRN PRN Hypoglycemia Fluoxetine HCl 40 mg 08/24/18 10:00 09/07/18 10:45 Prozac PO 40 mg QDAY NASH Administration Heparin Sodium (Porcine) 5,000 unit 08/23/18 10:00 09/07/18 22:50 Heparin SUB-Q 5,000 unit Q12HR NASH Administration Hydralazine HCl 10 mg 08/24/18 07:32 09/02/18 10:34 Apresoline IV 10 mg Q4HR PRN Administration HTN >155/90 Hydralazine HCl 100 mg 08/28/18 14:00 09/08/18 05:07 Apresoline PO Not Given Q8HR NASH Insulin Human Isoph/Insulin Regular 15 unit 08/25/18 12:00 09/08/18 08:46 Humulin 70/30 SUB-Q 15 unit BIDDIAB NASH Administration Insulin Human Lispro 0 unit 09/05/18 13:00 09/08/18 08:24 Humalog SUB-Q Not Given ACHS NASH Protocol Levetiracetam 1,000 mg 08/27/18 10:00 09/07/18 22:49 Keppra PO 1,000 mg BID NASH Administration Lorazepam 1 mg 08/23/18 01:58 Ativan IV Q4H PRN Seizures Olanzapine 2.5 mg 08/24/18 10:00 09/07/18 10:46 Zyprexa PO 2.5 mg DAILY NASH Administration Ondansetron HCl 4 mg 08/22/18 23:50 Zofran IV Q8H PRN Nausea And Vomiting Simple Syrup 15 ml 08/23/18 15:27 Simple Syrup FEEDTUBE PRN PRN Hypoglycemia Simple Syrup 30 ml 08/23/18 15:27 Simple Syrup FEEDTUBE PRN PRN Hypoglycemia Sodium Bicarbonate 325 mg 08/23/18 15:27 Sodium Bicarbonate FEEDTUBE PRN PRN For Clogged Feeding Tube Sodium Chloride 10 ml 08/22/18 23:50 09/07/18 22:50 Sodium Chloride Flush Syringe 10 Ml IV 10 ml BID NASH Administration Sodium Chloride 10 ml 08/23/18 00:12 Sodium Chloride Flush Syringe 10 Ml IV PRN PRN LINE FLUSH Nutrition/Malnutrition Assess - Dietary Evaluation Nutrition/Malnutrition Findings: Nutrition Notes Start: 08/23/18 15:56 Freq: Status: Active Protocol: Document 09/05/18 14:03 RM (Rec: 09/05/18 14:10 RM [id number]) Nutrition Notes Initial or Follow up Reassessment Current Diagnosis Acute Kidney Injury,CKD(stage I-IV),Coronary Artery Disease, Diabetes,Sepsis,Hypertension, Hyperlipidemia Other Pertinent Diagnosis PVD, Hx endometrial CA, Seizures, AKA Current Diet Cardiac/Consistent CHO,Mech soft w/Glucerna Labs/Tests A1c 8.3, K 5 Pertinent Medications Reviewed Height 5 ft Weight 70 kg [place] Body Weight (kg) 45.45 BMI 30.1 Subjective/Other Information Diet changed to Renal and Glucerna not carried over. Pt asleep at time of visit. Per nurse pt eats 25% of meals and drank the Glucerna when it was ordered. Percent of energy/protein needs met: 53%/55% Burn Absent Trauma Absent #1 Nutrition Diagnosis Inadequate oral intake As Evidenced by Signs and Symptoms pt meeting 53% of calorie and 55% of protein needs Diagnosis Progress(for reassessment Worsened documentation) Is patient on ventilator? No Is Patient Ambulatory and/or Out of Bed No REE-([facility]-confined to bed) 1411.104 Calculation Used for Recommendations Kcal/kg Additional Notes Protein Needs: 54-67g (0.8-1g/ kg 67kg adjBW) Fluid Needs: 1 ml/kcal Nutrition Intervention Change Diet Order: Renal Add Supplement/Snack (indicate name/kcal Nepro 1 daily /protein ) Provides kCal: 425 Provides Protein (gm) 19 Goal #1 Meet at least 75% of calorie and protein needs via PO and ONS intakes Anticipated Discharge Needs: Unable to determine at this time Follow-Up By: 09/08/18 Additional Comments Follow for PO and ONS intakes, DM diet education
[2018-09-08] MEDS: NORVASC PO SCH (10:38)
[2018-09-08] MEDS: KEPPRA PO SCH ×2 (10:38→23:05)
[2018-09-08] MEDS: HEPARIN SUB-Q SCH ×2 (10:39→22:57)
[2018-09-08] MEDS: COREG PO SCH ×2 (10:39→22:57)
[2018-09-08] MEDS: PROzac PO SCH (10:39)
[2018-09-08] MEDS: BABY ASPIRIN PO SCH (10:40)
[2018-09-08] MEDS: SODIUM CHLORIDE FLUSH SYRINGE 10 ML IV SCH ×2 (10:40→23:06)
[2018-09-09] MEDS: APRESOLINE PO SCH ×3 (06:28→22:46)
--- NOTE | 2018-09-09 08:12 | Progress Note ---
Assessment and Plan Assessment and plan: 62-year-old female patient in prison resident was admitted through emergency room with witnessed seizures and status epilepticus Patient was also noted to have hypertensive emergency requiring Cardene drip, admitted and stabilized in ICU, transferred to medical floor. Patient was placed on antiepileptic medications, seizure precautions, evaluated by neurology Patient had UTI present on admission positive for ESBL, placed on contact isolation, evaluated by ID, received meropenem for total 4 days, patient's symptoms significantly improved, ID advised to continue contact isolation. Patient did not have any new episodes of seizures, is hemodynamically and clinically stable for discharge However isolation rooms are not available in the prison. Awaiting to return to prison when isolation room is available CXR: Mild cardiomegaly and pulm vasc congestion Assessment and plan; --Metabolic encephalopathy; present on admission; Multifactorial, sepsis, seizures, acute on chronic kidney disease The patient is alert and oriented 3 --Sepsis secondary to UTI /ESBL;present on admission Completed total 4 days of Meropenem,per ID ID adv to continue contact isolation upon DC --Hypertensive Emergency: Present on admission. Blood pressures are better controlled today s/p cardine drip, on amlodipine, Coreg, clonidine, losartan, hydralazine spironolactone Held due to Hyperkalmia, and PRN hydralazine, --Status epilepticus: Seizure precautions, continue keppra 1000mg bid Ativan when necessary, neurology evaluated the patient. continue current recs. no further recommendation --CLINT on CKD 3: Vasomotor nephropathy Gentle hydration INITIALLY now discontinued, slow renal improvement noted but mildly elevated today, continue to monitor renal function, avoid nephrotoxins, creatinine level trending down Nephrology following --Hyperkalemia: correcting, continue to hold ARB. --Moderate to severe malnutrition: Nutrition supplements Supportive care, nutrition consulted and input noted --Severe debility; physical therapy occupational therapy --Insulin-dependent diabetes; Accu-Chek sliding scale coverage and ADA diet Insulin as needed,hemoglobin A1c 8.3 --History of left AKA: Supportive care --History of endometrial cancer status post hysterectomy,stable --History of major depression; continue current antidepression medications --Dyslipidemia; stable on lipid-lowering medicine, low-cholesterol diet --DVT Prophylaxis; Lovenox Patient is medically stable for discharge Pt will return to SNF when isolation room is available History Interval history: Sincerely examination medical records reviewed Patient feels better no new complaints Medically stable for discharge Awaiting SNF placement with isolated room Vital signs noted Hospitalist Physical - Constitutional Vitals: Temp Pulse Resp BP Pulse Ox 97.9 F 58 L 20 155/53 94 09/09/18 05:29 09/09/18 06:28 09/09/18 05:29 09/09/18 06:28 09/09/18 05:29 General appearance: Present: no acute distress, well-nourished - EENT Eyes: Present: PERRL, EOM intact - Neck Neck: Present: supple, normal ROM - Respiratory Respiratory effort: normal Respiratory: bilateral: diminished, negative: rales, rhonchi, wheezing - Cardiovascular Rhythm: regular Heart Sounds: Present: S1 & S2 - Extremities Extremities: no ischemia, No edema, abnormal (left AKA) - Abdominal General gastrointestinal: soft, non-tender, non-distended, normal bowel sounds - Integumentary Integumentary: Present: clear, warm - Psychiatric Psychiatric: appropriate mood/affect, cooperative - Neurologic Neurologic: moves all extremities Results - Labs CBC & Chem 7: 08/30/18 05:24 09/09/18 10:34 Labs: Laboratory Last Values WBC 8.9 K/mm3 (4.5-11.0) 08/30/18 05:24 RBC 3.33 M/mm3 (3.65-5.03) L 08/30/18 05:24 Hgb 9.2 gm/dl (10.1-14.3) L 08/30/18 05:24 Hct 28.5 % (30.3-42.9) L 08/30/18 05:24 MCV 86 fl (79-97) 08/30/18 05:24 MCH 28 pg (28-32) 08/30/18 05:24 MCHC 32 % (30-34) 08/30/18 05:24 RDW 15.9 % (13.2-15.2) H 08/30/18 05:24 Plt Count 332 K/mm3 (140-440) 08/30/18 05:24 Lymph % (Auto) [place] 08/24/18 04:37 [place] % (Auto) [place] 08/24/18 04:37 Eos % (Auto) [place] 08/24/18 04:37 Baso % (Auto) [place] 08/24/18 04:37 Lymph # [place] 08/24/18 04:37 [place] # [place] 08/24/18 04:37 Eos # [place] 08/24/18 04:37 Baso # [place] 08/24/18 04:37 Add Manual Diff Complete 08/30/18 05:24 Total Counted 100 08/30/18 05:24 Seg Neutrophils % [place] 08/24/18 04:37 Seg Neuts % (Manual) 69.0 % (40.0-70.0) 08/30/18 05:24 2.0 % 08/30/18 05:24 14.0 % (13.4-35.0) 08/30/18 05:24 Reactive Lymphs % (Man) 0 % 08/30/18 05:24 13.0 % (0.0-7.3) H 08/30/18 05:24 2.0 % (0.0-4.3) 08/30/18 05:24 0 % (0.0-1.8) 08/30/18 05:24 0 % 08/30/18 05:24 0 % 08/30/18 05:24 0 % 08/30/18 05:24 0 % 08/30/18 05:24 Nucleated RBC % Not Reportable 08/30/18 05:24 Seg Neutrophils # [place] 08/24/18 04:37 Seg Neutrophils # Man 6.1 K/mm3 (1.8-7.7) 08/30/18 05:24 Band Neutrophils # 0.2 K/mm3 08/30/18 05:24 1.2 K/mm3 (1.2-5.4) 08/30/18 05:24 Abs React Lymphs (Man) 0.0 K/mm3 08/30/18 05:24 1.2 K/mm3 (0.0-0.8) H 08/30/18 05:24 0.2 K/mm3 (0.0-0.4) 08/30/18 05:24 0.0 K/mm3 (0.0-0.1) 08/30/18 05:24 0.0 K/mm3 08/30/18 05:24 0.0 K/mm3 08/30/18 05:24 0.0 K/mm3 08/30/18 05:24 Blast Cells # 0.0 K/mm3 08/30/18 05:24 WBC Morphology Not Reportable 08/30/18 05:24 Hypersegmented Neuts Not Reportable 08/30/18 05:24 Hyposegmented Neuts Not Reportable 08/30/18 05:24 Hypogranular Neuts Not Reportable 08/30/18 05:24 Not Reportable 08/30/18 05:24 Not Reportable 08/30/18 05:24 Not Reportable 08/30/18 05:24 Not Reportable 08/30/18 05:24 Not Reportable 08/30/18 05:24 Not Reportable 08/30/18 05:24 Consistent w auto 08/30/18 05:24 Not Reportable 08/30/18 05:24 Plt Clumps, EDTA Not Reportable 08/30/18 05:24 Not Reportable 08/30/18 05:24 Not Reportable 08/30/18 05:24 Not Reportable 08/30/18 05:24 Plt Morphology Comment Not Reportable 08/30/18 05:24 RBC Morphology Not Reportable 08/30/18 05:24 Dimorphic RBCs Not Reportable 08/30/18 05:24 Not Reportable 08/30/18 05:24 Not Reportable 08/30/18 05:24 Not Reportable 08/30/18 05:24 Not Reportable 08/30/18 05:24 Not Reportable 08/30/18 05:24 Few 08/30/18 05:24 Not Reportable 08/30/18 05:24 Not Reportable 08/30/18 05:24 Not Reportable 08/30/18 05:24 Not Reportable 08/30/18 05:24 Not Reportable 08/30/18 05:24 Not Reportable 08/30/18 05:24 Not Reportable 08/30/18 05:24 Not Reportable 08/30/18 05:24 Not Reportable 08/30/18 05:24 Not Reportable 08/30/18 05:24 Not Reportable 08/30/18 05:24 Not Reportable 08/30/18 05:24 Not Reportable 08/30/18 05:24 Acanthocytes (Spur) Not Reportable 08/30/18 05:24 Rouleaux Not Reportable 08/30/18 05:24 Not Reportable 08/30/18 05:24 Not Reportable 08/30/18 05:24 Not Reportable 08/30/18 05:24 Not Reportable 08/30/18 05:24 Hem Pathologist Commnt No 08/30/18 05:24 Sodium 141 mmol/L (137-145) 09/08/18 06:02 Potassium 4.3 mmol/L (3.6-5.0) 09/08/18 06:02 Chloride 105.8 mmol/L (98-107) 09/08/18 06:02 Carbon Dioxide 23 mmol/L (22-30) 09/08/18 06:02 17 mmol/L 09/08/18 06:02 BUN 30 mg/dL (7-17) H 09/08/18 06:02 1.6 mg/dL (0.7-1.2) H 09/08/18 06:02 Estimated GFR 39 ml/min 09/08/18 06:02 19 % 09/08/18 06:02 Glucose 74 mg/dL (65-100) 09/08/18 06:02 POC Glucose 115 (70-105) H 09/09/18 08:01 8.3 % (4-6) H 08/23/18 01:03 313 Mosm/kg 08/23/18 10:10 Lactic Acid 0.80 mmol/L (0.7-2.0) 08/23/18 10:10 7.7 mg/dL (3.5-7.6) H 08/23/18 09:05 Calcium 8.8 mg/dL (8.4-10.2) 09/08/18 06:02 Phosphorus 3.70 mg/dL (2.5-4.5) 08/23/18 09:05 Magnesium 1.90 mg/dL (1.7-2.3) 08/28/18 13:05 0.30 mg/dL (0.1-1.2) 08/23/18 09:05 AST 19 units/L (5-40) 08/23/18 09:05 ALT 7 units/L (7-56) 08/23/18 09:05 93 units/L (35-129) 08/23/18 09:05 612 units/L (30-135) H 08/23/18 09:05 7.4 g/dL (6.3-8.2) 08/23/18 09:05 3.1 g/dL (3.9-5) L 08/23/18 09:05 0.7 % 08/23/18 09:05 Triglycerides 160 mg/dL (2-149) H 08/23/18 04:08 Cholesterol 325 mg/dL (50-199) H 08/23/18 04:08 248 mg/dL (50-130) H 08/23/18 04:08 60 mg/dL (40-59) H 08/23/18 04:08 5.41 % 08/23/18 04:08 0.08 ng/mL/h (0.25-5.82) L 08/23/18 10:10 3 ng/dL () 08/23/18 10:10 Aldosterone/Renin Dir 37.5 Ratio (0.9-28.9) H 08/23/18 10:10 [place] (Yellow) 08/22/18 19:45 Cloudy (Clear) 08/22/18 19:45 6.0 (5.0-7.0) 08/22/18 19:45 Ur Specific [place] 1.024 (1.003-1.030) 08/22/18 19:45 >500 mg/dL (Negative) 08/22/18 19:45 150 mg/dL (Negative) 08/22/18 19:45 Neg mg/dL (Negative) 08/22/18 19:45 Sm (Negative) 08/22/18 19:45 Neg (Negative) 08/22/18 19:45 Neg (Negative) 08/22/18 19:45 < 2.0 mg/dL (<2.0) 08/22/18 19:45 Ur Leukocyte Esterase Tr (Negative) 08/22/18 19:45 42.0 /HPF (0.0-6.0) H 08/22/18 19:45 11.0 /HPF (0.0-6.0) 08/22/18 19:45 U Epithel Cells (Auto) 4.0 /HPF (0-13.0) 08/22/18 19:45 4+ /HPF (Negative) 08/22/18 19:45 Hyaline Casts 7 /LPF 08/22/18 19:45 1+ /HPF 08/22/18 19:45 Active Medications - Current Medications Current Medications: Generic Name Dose Route Start Last Admin Trade Name Freq PRN Reason Stop Dose Admin Acetaminophen 650 mg 08/22/18 23:50 09/07/18 20:34 Tylenol PO 650 mg Q4H PRN Administration Pain MILD(1-3)/Fever >100.5/CARTER Amlodipine Besylate 10 mg 08/24/18 10:00 09/08/18 10:38 Norvasc PO 10 mg DAILY NASH Administration Lipase/Protease/Amylase 1 each 08/23/18 15:27 Pancreaze 10,500 Unit FEEDTUBE PRN PRN For Clogged Feeding Tube Aspirin 81 mg 08/24/18 10:00 09/08/18 10:40 Baby Aspirin PO 81 mg DAILY NASH Administration Carvedilol 25 mg 08/25/18 22:00 09/08/18 22:57 Coreg PO 25 mg BID NASH Administration Clonidine HCl 0.3 mg 08/24/18 10:00 09/07/18 10:46 Catapres-Tts Patch TD 0.3 mg QWEEK NASH Administration Dextrose 50 ml 08/22/18 23:50 D50w (25gm) Syringe IV PRN PRN Hypoglycemia Fluoxetine HCl 40 mg 08/24/18 10:00 09/08/18 10:39 Prozac PO 40 mg QDAY NASH Administration Heparin Sodium (Porcine) 5,000 unit 08/23/18 10:00 09/08/18 22:57 Heparin SUB-Q 5,000 unit Q12HR NASH Administration Hydralazine HCl 10 mg 08/24/18 07:32 09/02/18 10:34 Apresoline IV 10 mg Q4HR PRN Administration HTN >155/90 Hydralazine HCl 100 mg 08/28/18 14:00 09/09/18 06:28 Apresoline PO 100 mg Q8HR NASH Administration Insulin Human Isoph/Insulin Regular 15 unit 08/25/18 12:00 09/08/18 17:19 Humulin 70/30 SUB-Q 15 unit BIDDIAB NASH Administration Insulin Human Lispro 0 unit 09/05/18 13:00 09/08/18 22:56 Humalog SUB-Q 3 unit ACHS NASH Administration Protocol Levetiracetam 1,000 mg 08/27/18 10:00 09/08/18 23:05 Keppra PO 1,000 mg BID NASH Administration Lorazepam 1 mg 08/23/18 01:58 Ativan IV Q4H PRN Seizures Olanzapine 2.5 mg 08/24/18 10:00 09/08/18 10:38 Zyprexa PO 2.5 mg DAILY NASH Administration Ondansetron HCl 4 mg 08/22/18 23:50 Zofran IV Q8H PRN Nausea And Vomiting Simple Syrup 15 ml 08/23/18 15:27 Simple Syrup FEEDTUBE PRN PRN Hypoglycemia Simple Syrup 30 ml 08/23/18 15:27 Simple Syrup FEEDTUBE PRN PRN Hypoglycemia Sodium Bicarbonate 325 mg 08/23/18 15:27 Sodium Bicarbonate FEEDTUBE PRN PRN For Clogged Feeding Tube Sodium Chloride 10 ml 08/22/18 23:50 09/08/18 23:06 Sodium Chloride Flush Syringe 10 Ml IV 10 ml BID NASH Administration Sodium Chloride 10 ml 08/23/18 00:12 Sodium Chloride Flush Syringe 10 Ml IV PRN PRN LINE FLUSH Nutrition/Malnutrition Assess - Dietary Evaluation Nutrition/Malnutrition Findings: Nutrition Notes Start: 08/23/18 15:56 Freq: Status: Active Protocol: Document 09/08/18 11:55 LP (Rec: 09/08/18 11:55 LP [id number]) Nutrition Notes Initial or Follow up Brief Note Subjective/Other Information Unable to see pt at time of visit. Nutrition Intervention Follow-Up By: 09/09/18 Additional Comments Follow for PO and ONS intakes, DM diet education
[2018-09-09] MEDS: HumaLOG SUB-Q SCH ×4 (09:24→22:46)
[2018-09-09] MEDS: KEPPRA PO SCH ×2 (09:30→22:45)
[2018-09-09] MEDS: NORVASC PO SCH (09:30)
[2018-09-09] MEDS: HEPARIN SUB-Q SCH ×2 (09:30→22:46)
[2018-09-09] MEDS: BABY ASPIRIN PO SCH (09:30)
[2018-09-09] MEDS: SODIUM CHLORIDE FLUSH SYRINGE 10 ML IV SCH ×2 (09:31→22:46)
[2018-09-09] MEDS: PROzac PO SCH (09:31)
[2018-09-09] MEDS: COREG PO SCH ×2 (09:31→22:46)
[2018-09-09 11:01] LABS: Calcium 8.6 mg/dL (8.4-10.2)
--- NOTE | 2018-09-09 12:35 | Progress Note ---
Assessment and Plan Impression * Nonoliguric acute kidney injury secondary to prerenal azotemia on stage III CKD --Baseline SCr 1.4-1.7mg/dL * ESBL Ecoli UTI * Hyperkalemia * Hypertension * Type II DM * Metabolic acidosis * Seizure disorder * History of endometrial cancer * Depression * Bradycardia, iatrogenic Recommendation * Renal function remains stable - at baseline * Encourage po hydration * Renal diet * Abx per primary team * Reduce clonidine patch from 0.3 to 0.2 in light of bradycardia * Glycemic control per primary team * Avoid nephrotoxins * Dose medications for renal function * Discharge planning in progress Subjective Date of service: 09/09/18 Principal diagnosis: UTI Interval history: Patient has no complaints today. Objective - Vital Signs Vital signs: Vital Signs - 12hr 09/09/18 09/09/18 09/09/18 05:29 06:28 09:30 Temperature 97.9 F Pulse Rate 58 L 58 L 69 Respiratory 20 Rate Blood Pressure 155/53 155/53 143/40 O2 Sat by Pulse 94 Oximetry 09/09/18 12:18 Temperature 98.6 F Pulse Rate 59 L Respiratory 20 Rate Blood Pressure 138/39 O2 Sat by Pulse 95 Oximetry - General Appearance General appearance: well-developed, well-nourished EENT: ATNC, other (poor dentition) Respiratory: Present: Clear to Ascultation Cardiology: regular, S1S2 Gastrointestinal: normal, no tenderness, no distended Integumentary: no rash, warm and dry Musculoskeletal: other (no edema; left BKA) Psychiatric: cooperative - Lab 08/30/18 05:24 09/09/18 10:34 Most recent lab results Calcium 8.6 mg/dL (8.4-10.2) 09/09/18 10:34 Phosphorus 3.70 mg/dL (2.5-4.5) 08/23/18 09:05 Magnesium 1.90 mg/dL (1.7-2.3) 08/28/18 13:05 Medications & Allergies - Medications Allergies/Adverse Reactions: Allergies No Known Allergies Allergy (Unverified 06/05/17 13:30) Home Medications: Home Medications Medication Instructions Recorded Confirmed Last Taken Type Aspirin 81 mg PO DAILY 11/14/17 08/22/18 Unknown History Megestrol Acetate 800 mg PO DAILY 11/14/17 08/22/18 Unknown History OLANZapine [Zyprexa] 2.5 mg PO DAILY 11/14/17 08/22/18 Unknown History FLUoxetine [PROzac] 40 mg PO QDAY #30 capsule 11/26/17 08/22/18 Unknown Rx Ferrous Sulfate [Ferrous Sulfate 300 mg PO QDAY #30 oral.liqd 11/26/17 08/22/18 Unknown Rx Oral Liq 300 Mg/5 Ml] Pantoprazole [Protonix TAB] 40 mg PO QDAY #30 tablet 11/26/17 08/22/18 Unknown Rx amLODIPine [Norvasc] 10 mg PO DAILY #30 tablet 11/26/17 08/22/18 Unknown Rx Carvedilol [Coreg] 25 mg PO BID tablet 12/06/17 08/22/18 Unknown Rx cloNIDine [Catapres] 0.1 mg PO Q8H tablet 12/06/17 08/22/18 Unknown Rx traMADol [Ultram 50 MG tab] 50 mg PO Q12HR PRN #20 tablet 12/06/17 08/22/18 Unknown Rx Acetaminophen 325 mg PO Q6H PRN 12/22/17 08/22/18 Unknown History Glucagon HCl 1 mg IM ONCE PRN 12/22/17 08/22/18 Unknown History Klor-Con 10 10 meq PO DAILY 12/22/17 08/22/18 Unknown History Lispro Insulin [HumaLOG] See Protocol SC ACHS 12/22/17 08/22/18 Unknown History Simethicone 80 mg PO Q8H PRN 12/22/17 08/22/18 Unknown History levETIRAcetam [Keppra ORAL LIQ] 750 mg PO BID 30 Days bottle 01/04/18 08/22/18 Unknown Rx Active Medications: Generic Name Dose Route Start Last Admin Trade Name Freq PRN Reason Stop Dose Admin Acetaminophen 650 mg 08/22/18 23:50 09/07/18 20:34 Tylenol PO 650 mg Q4H PRN Administration Pain MILD(1-3)/Fever >100.5/CARTER Amlodipine Besylate 10 mg 08/24/18 10:00 09/09/18 09:30 Norvasc PO 10 mg DAILY NASH Administration Lipase/Protease/Amylase 1 each 08/23/18 15:27 Pancrerosa [place] 10,500 Unit FEEDTUBE PRN PRN For Clogged Feeding Tube Aspirin 81 mg 08/24/18 10:00 09/09/18 09:30 Baby Aspirin PO 81 mg DAILY NASH Administration Carvedilol 25 mg 08/25/18 22:00 09/09/18 09:31 Coreg PO 25 mg BID NASH Administration Clonidine HCl 0.3 mg 08/24/18 10:00 09/07/18 10:46 Catapres-Tts Patch TD 0.3 mg QWEEK NASH Administration Dextrose 50 ml 08/22/18 23:50 D50w (25gm) Syringe IV PRN PRN Hypoglycemia Fluoxetine HCl 40 mg 08/24/18 10:00 09/09/18 09:31 Prozac PO 40 mg QDAY NASH Administration Heparin Sodium (Porcine) 5,000 unit 08/23/18 10:00 09/09/18 09:30 Heparin SUB-Q 5,000 unit Q12HR NASH Administration Hydralazine HCl 10 mg 08/24/18 07:32 09/02/18 10:34 Apresoline IV 10 mg Q4HR PRN Administration HTN >155/90 Hydralazine HCl 100 mg 08/28/18 14:00 09/09/18 06:28 Apresoline PO 100 mg Q8HR NASH Administration Insulin Human Isoph/Insulin Regular 15 unit 08/25/18 12:00 09/09/18 09:30 Humulin 70/30 SUB-Q 15 unit BIDDIAB NASH Administration Insulin Human Lispro 0 unit 09/05/18 13:00 09/09/18 09:24 Humalog SUB-Q Not Given ACHS [facility] Protocol Levetiracetam 1,000 mg 08/27/18 10:00 09/09/18 09:30 Keppra PO 1,000 mg BID NASH Administration Lorazepam 1 mg 08/23/18 01:58 Ativan IV Q4H PRN Seizures Olanzapine 2.5 mg 08/24/18 10:00 09/09/18 09:30 Zyprexa PO 2.5 mg DAILY NASH Administration Ondansetron HCl 4 mg 08/22/18 23:50 Zofran IV Q8H PRN Nausea And Vomiting Simple Syrup 15 ml 08/23/18 15:27 Simple Syrup FEEDTUBE PRN PRN Hypoglycemia Simple Syrup 30 ml 08/23/18 15:27 Simple Syrup FEEDTUBE PRN PRN Hypoglycemia Sodium Bicarbonate 325 mg 08/23/18 15:27 Sodium Bicarbonate FEEDTUBE PRN PRN For Clogged Feeding Tube Sodium Chloride 10 ml 08/22/18 23:50 09/09/18 09:31 Sodium Chloride Flush Syringe 10 Ml IV 10 ml BID NASH Administration Sodium Chloride 10 ml 08/23/18 00:12 Sodium Chloride Flush Syringe 10 Ml IV PRN PRN LINE FLUSH
[2018-09-10] MEDS: CATAPRES-TTS PATCH TD SCH (00:36)
[2018-09-10 06:23] LABS: Calcium 8.8 mg/dL (8.4-10.2)
[2018-09-10] MEDS: APRESOLINE PO SCH ×3 (07:05→22:58)
--- NOTE | 2018-09-10 08:35 | Progress Note ---
Assessment and Plan Assessment and plan: 62-year-old female patient in assisted resident was admitted through emergency room with witnessed seizures and status epilepticus Patient was also noted to have hypertensive emergency requiring Cardene drip, admitted and stabilized in ICU, transferred to medical floor. Patient was placed on antiepileptic medications, seizure precautions, evaluated by neurology Patient had UTI present on admission positive for ESBL, placed on contact isolation, evaluated by ID, received meropenem for total 4 days, patient's symptoms significantly improved, ID advised to continue contact isolation. Patient did not have any new episodes of seizures, is hemodynamically and clinically stable for discharge However isolation rooms are not available in the assisted. Awaiting to return to assisted when isolation room is available CXR: Mild cardiomegaly and pulm vasc congestion Assessment and plan; --Metabolic encephalopathy; present on admission; resolved --Sepsis secondary to UTI /ESBL;present on admission Completed total 4 days of Meropenem,per ID ID adv to continue contact isolation upon DC --Hypertensive Emergency: Present on admission. Blood pressures are better controlled today --Status epilepticus: Seizure precautions, continue keppra 1000mg bid Ativan when necessary, neurology evaluated the patient. continue current recs. no further recommendation --CLINT on CKD 3: Vasomotor nephropathy Gentle hydration INITIALLY now discontinued, slow renal improvement noted but mildly elevated today, continue to monitor renal function, avoid nephrotoxins, creatinine level trending down Nephrology following --Hyperkalemia: correcting, continue to hold ARB. --Moderate to severe malnutrition: Nutrition supplements Supportive care, nutrition consulted and input noted --Severe debility; physical therapy occupational therapy --Insulin-dependent diabetes; Accu-Chek sliding scale coverage and ADA diet Insulin as needed,hemoglobin A1c 8.3 --History of left AKA: Supportive care --History of endometrial cancer status post hysterectomy,stable --History of major depression; continue current antidepression medications --Dyslipidemia; stable on lipid-lowering medicine, low-cholesterol diet --DVT Prophylaxis; Lovenox Patient is medically stable for discharge Pt will return to SNF when isolation room is available History Interval history: Patient seen and examined medical records reviewed Clinically no change awaiting SNF placement, an isolation bed is available Patient has no new complaints Vital signs noted, no distress Atelectatic oriented 3 Hospitalist Physical - Constitutional Vitals: Temp Pulse Resp BP Pulse Ox 98.5 F 65 18 169/53 95 09/10/18 06:19 09/10/18 06:19 09/10/18 06:19 09/10/18 06:19 09/10/18 06:19 General appearance: Present: no acute distress, well-nourished - EENT Eyes: Present: PERRL, EOM intact - Neck Neck: Present: supple, normal ROM - Respiratory Respiratory effort: normal Respiratory: bilateral: diminished, negative: rales, rhonchi, wheezing - Cardiovascular Rhythm: regular Heart Sounds: Present: S1 & S2 - Extremities Extremities: abnormal (after AKA) - Abdominal General gastrointestinal: soft, non-tender, non-distended, normal bowel sounds - Integumentary Integumentary: Present: clear, warm - Psychiatric Psychiatric: appropriate mood/affect, cooperative - Neurologic Neurologic: CNII-XII intact, moves all extremities Results - Labs CBC & Chem 7: 08/30/18 05:24 09/10/18 05:46 Labs: Laboratory Last Values WBC 8.9 K/mm3 (4.5-11.0) 08/30/18 05:24 RBC 3.33 M/mm3 (3.65-5.03) L 08/30/18 05:24 Hgb 9.2 gm/dl (10.1-14.3) L 08/30/18 05:24 Hct 28.5 % (30.3-42.9) L 08/30/18 05:24 MCV 86 fl (79-97) 08/30/18 05:24 MCH 28 pg (28-32) 08/30/18 05:24 MCHC 32 % (30-34) 08/30/18 05:24 RDW 15.9 % (13.2-15.2) H 08/30/18 05:24 Plt Count 332 K/mm3 (140-440) 08/30/18 05:24 Lymph % (Auto) Title I Director 08/24/18 04:37 [place] % (Auto) Title I Director 08/24/18 04:37 Eos % (Auto) Title I Director 08/24/18 04:37 Baso % (Auto) Title I Director 08/24/18 04:37 Lymph # Title I Director 08/24/18 04:37 [place] # Title I Director 08/24/18 04:37 Eos # Title I Director 08/24/18 04:37 Baso # Title I Director 08/24/18 04:37 Add Manual Diff Complete 08/30/18 05:24 Total Counted 100 08/30/18 05:24 Seg Neutrophils % Title I Director 08/24/18 04:37 Seg Neuts % (Manual) 69.0 % (40.0-70.0) 08/30/18 05:24 2.0 % 08/30/18 05:24 14.0 % (13.4-35.0) 08/30/18 05:24 Reactive Lymphs % (Man) 0 % 08/30/18 05:24 13.0 % (0.0-7.3) H 08/30/18 05:24 2.0 % (0.0-4.3) 08/30/18 05:24 0 % (0.0-1.8) 08/30/18 05:24 0 % 08/30/18 05:24 0 % 08/30/18 05:24 0 % 08/30/18 05:24 0 % 08/30/18 05:24 Nucleated RBC % Not Reportable 08/30/18 05:24 Seg Neutrophils # Title I Director 08/24/18 04:37 Seg Neutrophils # Man 6.1 K/mm3 (1.8-7.7) 08/30/18 05:24 Band Neutrophils # 0.2 K/mm3 08/30/18 05:24 1.2 K/mm3 (1.2-5.4) 08/30/18 05:24 Abs React Lymphs (Man) 0.0 K/mm3 08/30/18 05:24 1.2 K/mm3 (0.0-0.8) H 08/30/18 05:24 0.2 K/mm3 (0.0-0.4) 08/30/18 05:24 0.0 K/mm3 (0.0-0.1) 08/30/18 05:24 0.0 K/mm3 08/30/18 05:24 0.0 K/mm3 08/30/18 05:24 0.0 K/mm3 08/30/18 05:24 Blast Cells # 0.0 K/mm3 08/30/18 05:24 WBC Morphology Not Reportable 08/30/18 05:24 Hypersegmented Neuts Not Reportable 08/30/18 05:24 Hyposegmented Neuts Not Reportable 08/30/18 05:24 Hypogranular Neuts Not Reportable 08/30/18 05:24 Not Reportable 08/30/18 05:24 Not Reportable 08/30/18 05:24 Not Reportable 08/30/18 05:24 Not Reportable 08/30/18 05:24 Not Reportable 08/30/18 05:24 Not Reportable 08/30/18 05:24 Consistent w auto 08/30/18 05:24 Not Reportable 08/30/18 05:24 Plt Clumps, EDTA Not Reportable 08/30/18 05:24 Not Reportable 08/30/18 05:24 Not Reportable 08/30/18 05:24 Not Reportable 08/30/18 05:24 Plt Morphology Comment Not Reportable 08/30/18 05:24 RBC Morphology Not Reportable 08/30/18 05:24 Dimorphic RBCs Not Reportable 08/30/18 05:24 Not Reportable 08/30/18 05:24 Not Reportable 08/30/18 05:24 Not Reportable 08/30/18 05:24 Not Reportable 08/30/18 05:24 Not Reportable 08/30/18 05:24 Few 08/30/18 05:24 Not Reportable 08/30/18 05:24 Not Reportable 08/30/18 05:24 Not Reportable 08/30/18 05:24 Not Reportable 08/30/18 05:24 Not Reportable 08/30/18 05:24 Not Reportable 08/30/18 05:24 Not Reportable 08/30/18 05:24 Not Reportable 08/30/18 05:24 Not Reportable 08/30/18 05:24 Not Reportable 08/30/18 05:24 Not Reportable 08/30/18 05:24 Not Reportable 08/30/18 05:24 Not Reportable 08/30/18 05:24 Acanthocytes (Spur) Not Reportable 08/30/18 05:24 Rouleaux Not Reportable 08/30/18 05:24 Not Reportable 08/30/18 05:24 Not Reportable 08/30/18 05:24 Not Reportable 08/30/18 05:24 Not Reportable 08/30/18 05:24 Hem Pathologist Commnt No 08/30/18 05:24 Sodium 142 mmol/L (137-145) 09/10/18 05:46 Potassium 4.4 mmol/L (3.6-5.0) 09/10/18 05:46 Chloride 108.7 mmol/L (98-107) H 09/10/18 05:46 Carbon Dioxide 24 mmol/L (22-30) 09/10/18 05:46 14 mmol/L 09/10/18 05:46 BUN 27 mg/dL (7-17) H 09/10/18 05:46 1.6 mg/dL (0.7-1.2) H 09/10/18 05:46 Estimated GFR 39 ml/min 09/10/18 05:46 17 % 09/10/18 05:46 Glucose 112 mg/dL (65-100) H 09/10/18 05:46 POC Glucose 125 (70-105) H 09/10/18 08:00 8.3 % (4-6) H 08/23/18 01:03 313 Mosm/kg 08/23/18 10:10 Lactic Acid 0.80 mmol/L (0.7-2.0) 08/23/18 10:10 7.7 mg/dL (3.5-7.6) H 08/23/18 09:05 Calcium 8.8 mg/dL (8.4-10.2) 09/10/18 05:46 Phosphorus 3.70 mg/dL (2.5-4.5) 08/23/18 09:05 Magnesium 1.90 mg/dL (1.7-2.3) 08/28/18 13:05 0.30 mg/dL (0.1-1.2) 08/23/18 09:05 AST 19 units/L (5-40) 08/23/18 09:05 ALT 7 units/L (7-56) 08/23/18 09:05 93 units/L (35-129) 08/23/18 09:05 612 units/L (30-135) H 08/23/18 09:05 7.4 g/dL (6.3-8.2) 08/23/18 09:05 3.1 g/dL (3.9-5) L 08/23/18 09:05 0.7 % 08/23/18 09:05 Triglycerides 160 mg/dL (2-149) H 08/23/18 04:08 Cholesterol 325 mg/dL (50-199) H 08/23/18 04:08 248 mg/dL (50-130) H 08/23/18 04:08 60 mg/dL (40-59) H 08/23/18 04:08 5.41 % 08/23/18 04:08 0.08 ng/mL/h (0.25-5.82) L 08/23/18 10:10 3 ng/dL () 08/23/18 10:10 Aldosterone/Renin Dir 37.5 Ratio (0.9-28.9) H 08/23/18 10:10 [place] (Yellow) 08/22/18 19:45 Cloudy (Clear) 08/22/18 19:45 6.0 (5.0-7.0) 08/22/18 19:45 Ur Specific [place] 1.024 (1.003-1.030) 08/22/18 19:45 >500 mg/dL (Negative) 08/22/18 19:45 150 mg/dL (Negative) 08/22/18 19:45 Neg mg/dL (Negative) 08/22/18 19:45 Sm (Negative) 08/22/18 19:45 Neg (Negative) 08/22/18 19:45 Neg (Negative) 08/22/18 19:45 < 2.0 mg/dL (<2.0) 08/22/18 19:45 Ur Leukocyte Esterase Tr (Negative) 08/22/18 19:45 42.0 /HPF (0.0-6.0) H 08/22/18 19:45 11.0 /HPF (0.0-6.0) 08/22/18 19:45 U Epithel Cells (Auto) 4.0 /HPF (0-13.0) 08/22/18 19:45 4+ /HPF (Negative) 08/22/18 19:45 Hyaline Casts 7 /LPF 08/22/18 19:45 1+ /HPF 08/22/18 19:45 Active Medications - Current Medications Current Medications: Generic Name Dose Route Start Last Admin Trade Name Freq PRN Reason Stop Dose Admin Acetaminophen 650 mg 08/22/18 23:50 09/07/18 20:34 Tylenol PO 650 mg Q4H PRN Administration Pain MILD(1-3)/Fever >100.5/CARTER Amlodipine Besylate 10 mg 08/24/18 10:00 09/09/18 09:30 Norvasc PO 10 mg DAILY NASH Administration Lipase/Protease/Amylase 1 each 08/23/18 15:27 Pancrerosa [place] 10,500 Unit FEEDTUBE PRN PRN For Clogged Feeding Tube Aspirin 81 mg 08/24/18 10:00 09/09/18 09:30 Baby Aspirin PO 81 mg DAILY NASH Administration Carvedilol 25 mg 08/25/18 22:00 09/09/18 22:46 Coreg PO 25 mg BID NASH Administration Clonidine HCl 0.2 mg 09/09/18 22:00 09/10/18 00:36 Catapres-Tts Patch TD 0.2 mg Fr NASH Administration Dextrose 50 ml 08/22/18 23:50 D50w (25gm) Syringe IV PRN PRN Hypoglycemia Fluoxetine HCl 40 mg 08/24/18 10:00 09/09/18 09:31 Prozac PO 40 mg QDAY NASH Administration Heparin Sodium (Porcine) 5,000 unit 08/23/18 10:00 09/09/18 22:46 Heparin SUB-Q 5,000 unit Q12HR NASH Administration Hydralazine HCl 10 mg 08/24/18 07:32 09/02/18 10:34 Apresoline IV 10 mg Q4HR PRN Administration HTN >155/90 Hydralazine HCl 100 mg 08/28/18 14:00 09/10/18 07:05 Apresoline PO 100 mg Q8HR NASH Administration Insulin Human Isoph/Insulin Regular 15 unit 08/25/18 12:00 09/09/18 17:31 Humulin 70/30 SUB-Q 15 unit BIDDIAB NASH Administration Insulin Human Lispro 0 unit 09/05/18 13:00 09/09/18 22:46 Humalog SUB-Q 4 unit ACHS NASH Administration Protocol Levetiracetam 1,000 mg 08/27/18 10:00 09/09/18 22:45 Keppra PO 1,000 mg BID NASH Administration Lorazepam 1 mg 08/23/18 01:58 Ativan IV Q4H PRN Seizures Olanzapine 2.5 mg 08/24/18 10:00 09/09/18 09:30 Zyprexa PO 2.5 mg DAILY NASH Administration Ondansetron HCl 4 mg 08/22/18 23:50 Zofran IV Q8H PRN Nausea And Vomiting Simple Syrup 15 ml 08/23/18 15:27 Simple Syrup FEEDTUBE PRN PRN Hypoglycemia Simple Syrup 30 ml 08/23/18 15:27 Simple Syrup FEEDTUBE PRN PRN Hypoglycemia Sodium Bicarbonate 325 mg 08/23/18 15:27 Sodium Bicarbonate FEEDTUBE PRN PRN For Clogged Feeding Tube Sodium Chloride 10 ml 08/22/18 23:50 09/09/18 22:46 Sodium Chloride Flush Syringe 10 Ml IV 10 ml BID NASH Administration Sodium Chloride 10 ml 08/23/18 00:12 Sodium Chloride Flush Syringe 10 Ml IV PRN PRN LINE FLUSH Nutrition/Malnutrition Assess - Dietary Evaluation Nutrition/Malnutrition Findings: Nutrition Notes Start: 08/23/18 15:56 Freq: Status: Active Protocol: Document 09/09/18 16:08 RM (Rec: 09/09/18 16:18 RM [id number]) Nutrition Notes Initial or Follow up Reassessment Current Diagnosis Acute Kidney Injury,CKD(stage I-IV),Coronary Artery Disease, Diabetes,Sepsis,Hypertension, Hyperlipidemia Other Pertinent Diagnosis PVD, Hx endometrial CA, Seizures, AKA Current Diet Renal w/Nepro 1 daily Labs/Tests A1c 8.3 Pertinent Medications Reviewed Height 5 ft Weight 56.3 kg [place] Body Weight (kg) 45.45 BMI 24.2 Weight change and time frame Noted wt loss. Unable to weigh pt d/t error on bedscale. Asked tech to weigh pt when possible. Subjective/Other Information Pt alseep at time of visit. Per tech pt ate 25% of breakfast and drinks the Nepro . Also mentioned that pt does not seem to like the eggs or toast and consistently does not eat them. Percent of energy/protein needs met: 77%/72% Burn Absent Trauma Absent #1 Nutrition Diagnosis Inadequate oral intake As Evidenced by Signs and Symptoms pt meeting 77% of calorie and 72% of protei needs Diagnosis Progress(for reassessment Improved documentation) Is patient on ventilator? No Is Patient Ambulatory and/or Out of Bed No REE-([facility]-confined to bed) 1246.872 Calculation Used for Recommendations Kcal/kg Additional Notes Protein Needs: 54-67g (0.8-1g/ kg 67kg adjBW) Fluid Needs: 1 ml/kcal Nutrition Intervention Change Diet Order: Renal Add Supplement/Snack (indicate name/kcal Nepro BID /protein ) Provides kCal: 850 Provides Protein (gm) 38 Goal #1 Meet at least 75% of calorie and protein needs via PO and ONS intakes Anticipated Discharge Needs: Renal diet Follow-Up By: 09/12/18 Additional Comments Follow for PO and ONS intakes, DM diet education
[2018-09-10] MEDS: HumaLOG SUB-Q SCH ×4 (08:42→22:58)
[2018-09-10] MEDS: BABY ASPIRIN PO SCH (09:23)
[2018-09-10] MEDS: COREG PO SCH ×2 (09:23→22:58)
[2018-09-10] MEDS: KEPPRA PO SCH ×2 (09:23→22:57)
[2018-09-10] MEDS: PROzac PO SCH (09:24)
[2018-09-10] MEDS: NORVASC PO SCH (09:24)
[2018-09-10] MEDS: HEPARIN SUB-Q SCH ×2 (09:24→22:58)
--- NOTE | 2018-09-10 10:37 | Progress Note ---
Assessment and Plan Impression * Nonoliguric acute kidney injury secondary to prerenal azotemia on stage III CKD --Baseline SCr 1.4-1.7mg/dL * ESBL Ecoli UTI * Hyperkalemia * Hypertension * Type II DM * Metabolic acidosis * Seizure disorder * History of endometrial cancer * Depression * Bradycardia, iatrogenic Recommendation * Renal function remains stable - at baseline * Encourage po hydration * Renal diet * Abx per primary team * Bradycardia seems to be better with reduction of Catapres patch. * Glycemic control per primary team * Avoid nephrotoxins * Dose medications for renal function * Discontinue IV fluid * Discharge planning in progress Subjective Date of service: 09/10/18 Principal diagnosis: UTI Interval history: Patient is awake and alert. Appears comfortable. Objective - Vital Signs Vital signs: Vital Signs - 12hr 09/09/18 09/09/18 09/10/18 22:45 23:25 00:36 Temperature 98.9 F Pulse Rate 67 67 Respiratory 20 18 Rate Blood Pressure 166/48 166/48 O2 Sat by Pulse 94 Oximetry 09/10/18 09/10/18 09/10/18 06:19 09:23 09:24 Temperature 98.5 F Pulse Rate 65 Respiratory 18 Rate Blood Pressure 169/53 169/53 169/53 O2 Sat by Pulse 95 Oximetry - General Appearance General appearance: well-developed, well-nourished, appears stated age EENT: PERRL, mucous membranes moist Neck: no JVD, no thyromegaly, no carotid bruit, supple Respiratory: Present: Clear to Ascultation Cardiology: regular, normal heart rate, S1S2, no murmurs Gastrointestinal: normal, normoactive bowel sounds Integumentary: no rash, other (left AKA. 1+edema ) - Lab 08/30/18 05:24 09/10/18 05:46 Most recent lab results Calcium 8.8 mg/dL (8.4-10.2) 09/10/18 05:46 Phosphorus 3.70 mg/dL (2.5-4.5) 08/23/18 09:05 Magnesium 1.90 mg/dL (1.7-2.3) 08/28/18 13:05 Medications & Allergies - Medications Allergies/Adverse Reactions: Allergies No Known Allergies Allergy (Unverified 06/05/17 13:30) Home Medications: Home Medications Medication Instructions Recorded Confirmed Last Taken Type Aspirin 81 mg PO DAILY 11/14/17 08/22/18 Unknown History Megestrol Acetate 800 mg PO DAILY 11/14/17 08/22/18 Unknown History OLANZapine [Zyprexa] 2.5 mg PO DAILY 11/14/17 08/22/18 Unknown History FLUoxetine [PROzac] 40 mg PO QDAY #30 capsule 11/26/17 08/22/18 Unknown Rx Ferrous Sulfate [Ferrous Sulfate 300 mg PO QDAY #30 oral.liqd 11/26/17 08/22/18 Unknown Rx Oral Liq 300 Mg/5 Ml] Pantoprazole [Protonix TAB] 40 mg PO QDAY #30 tablet 11/26/17 08/22/18 Unknown Rx amLODIPine [Norvasc] 10 mg PO DAILY #30 tablet 11/26/17 08/22/18 Unknown Rx Carvedilol [Coreg] 25 mg PO BID tablet 12/06/17 08/22/18 Unknown Rx cloNIDine [Catapres] 0.1 mg PO Q8H tablet 12/06/17 08/22/18 Unknown Rx traMADol [Ultram 50 MG tab] 50 mg PO Q12HR PRN #20 tablet 12/06/17 08/22/18 Unknown Rx Acetaminophen 325 mg PO Q6H PRN 12/22/17 08/22/18 Unknown History Glucagon HCl 1 mg IM ONCE PRN 12/22/17 08/22/18 Unknown History Klor-Con 10 10 meq PO DAILY 12/22/17 08/22/18 Unknown History Lispro Insulin [HumaLOG] See Protocol SC ACHS 12/22/17 08/22/18 Unknown History Simethicone 80 mg PO Q8H PRN 12/22/17 08/22/18 Unknown History levETIRAcetam [Keppra ORAL LIQ] 750 mg PO BID 30 Days bottle 01/04/18 08/22/18 Unknown Rx Active Medications: Generic Name Dose Route Start Last Admin Trade Name Freq PRN Reason Stop Dose Admin Acetaminophen 650 mg 08/22/18 23:50 09/07/18 20:34 Tylenol PO 650 mg Q4H PRN Administration Pain MILD(1-3)/Fever >100.5/CARTER Amlodipine Besylate 10 mg 08/24/18 10:00 09/10/18 09:24 Norvasc PO 10 mg DAILY NASH Administration Lipase/Protease/Amylase 1 each 08/23/18 15:27 Pancrerosa [place] 10,500 Unit FEEDTUBE PRN PRN For Clogged Feeding Tube Aspirin 81 mg 08/24/18 10:00 09/10/18 09:23 Baby Aspirin PO 81 mg DAILY NASH Administration Carvedilol 25 mg 08/25/18 22:00 09/10/18 09:23 Coreg PO 25 mg BID NASH Administration Clonidine HCl 0.2 mg 09/09/18 22:00 09/10/18 00:36 Catapres-Tts Patch TD 0.2 mg Fr NASH Administration Dextrose 50 ml 08/22/18 23:50 D50w (25gm) Syringe IV PRN PRN Hypoglycemia Fluoxetine HCl 40 mg 08/24/18 10:00 09/10/18 09:24 Prozac PO 40 mg QDAY NASH Administration Heparin Sodium (Porcine) 5,000 unit 08/23/18 10:00 09/10/18 09:24 Heparin SUB-Q 5,000 unit Q12HR NASH Administration Hydralazine HCl 10 mg 08/24/18 07:32 09/02/18 10:34 Apresoline IV 10 mg Q4HR PRN Administration HTN >155/90 Hydralazine HCl 100 mg 08/28/18 14:00 09/10/18 07:05 Apresoline PO 100 mg Q8HR NASH Administration Insulin Human Isoph/Insulin Regular 15 unit 08/25/18 12:00 09/10/18 09:24 Humulin 70/30 SUB-Q 15 unit BIDDIAB NASH Administration Insulin Human Lispro 0 unit 09/05/18 13:00 09/10/18 08:42 Humalog SUB-Q Not Given ACHS [facility] Protocol Levetiracetam 1,000 mg 08/27/18 10:00 09/10/18 09:23 Keppra PO 1,000 mg BID NASH Administration Lorazepam 1 mg 08/23/18 01:58 Ativan IV Q4H PRN Seizures Olanzapine 2.5 mg 08/24/18 10:00 09/10/18 09:20 Zyprexa PO 2.5 mg DAILY NASH Administration Ondansetron HCl 4 mg 08/22/18 23:50 Zofran IV Q8H PRN Nausea And Vomiting Simple Syrup 15 ml 08/23/18 15:27 Simple Syrup FEEDTUBE PRN PRN Hypoglycemia Simple Syrup 30 ml 08/23/18 15:27 Simple Syrup FEEDTUBE PRN PRN Hypoglycemia Sodium Bicarbonate 325 mg 08/23/18 15:27 Sodium Bicarbonate FEEDTUBE PRN PRN For Clogged Feeding Tube Sodium Chloride 10 ml 08/22/18 23:50 09/09/18 22:46 Sodium Chloride Flush Syringe 10 Ml IV 10 ml BID NASH Administration Sodium Chloride 10 ml 08/23/18 00:12 Sodium Chloride Flush Syringe 10 Ml IV PRN PRN LINE FLUSH
[2018-09-10] MEDS: SODIUM CHLORIDE FLUSH SYRINGE 10 ML IV SCH ×2 (12:32→22:58)
[2018-09-11] MEDS: APRESOLINE PO SCH ×3 (05:56→23:30)
[2018-09-11 06:22] LABS: Calcium 8.9 mg/dL (8.4-10.2)
--- NOTE | 2018-09-11 08:30 | Progress Note ---
Assessment and Plan Assessment and plan: 62-year-old female patient in [facility] resident was admitted through emergency room with witnessed seizures and status epilepticus Patient was also noted to have hypertensive emergency requiring Cardene drip, admitted and stabilized in ICU, transferred to medical floor. Patient was placed on antiepileptic medications, seizure precautions, evaluated by neurology Patient had UTI present on admission positive for ESBL, placed on contact isolation, evaluated by ID, received meropenem for total 4 days, patient's symptoms significantly improved, ID advised to continue contact isolation. Patient did not have any new episodes of seizures, is hemodynamically and clinically stable for discharge However isolation rooms are not available in the [facility]. Awaiting to return to [facility] when isolation room is available CXR: Mild cardiomegaly and pulm vasc congestion Assessment and plan; --Hypertensive Emergency: Present on admission. Blood pressures uncontrolled this morning Patient is on high doses of multiple antihypertensives Recheck after a meds and adjust as needed --Metabolic encephalopathy; present on admission; resolved --Sepsis secondary to UTI /ESBL;present on admission Completed total 4 days of Meropenem,per ID , contact isolation ID adv to continue contact isolation upon DC[no isolation room available available at [facility]] --Status epilepticus: On admission No new episodes of seizure, Seizure precautions,on keppra 1000mg bid Ativan when necessary, neurology evaluated the patient. --CLINT on CKD 3: Vasomotor nephropathy continue to monitor renal function, avoid nephrotoxins, creatinine level trending down Nephrology following --Hyperkalemia: Resolved. --Moderate to severe malnutrition: Nutrition supplements, dietitian evaluated --Severe debility; PT evaluated, poor rehabilitation potential --Insulin-dependent diabetes; Accu-Chek sliding scale coverage and ADA diet Long-acting insulin,hemoglobin A1c 8.3 --History of left AKA: Supportive care --History of endometrial cancer status post hysterectomy,stable --History of major depression; continue current antidepression medications --Dyslipidemia; stable on lipid-lowering medicine, low-cholesterol diet --DVT Prophylaxis; Lovenox Patient is medically stable for discharge Pt will return to [facility] when isolation room is available History Interval history: Patient seen and examined medical records reviewed Patient's blood pressure his uncontrolled this morning, However patient has multiple antihypertensives higher doses We'll recheck after AM meds Vital signs noted Hospitalist Physical - Constitutional Vitals: Temp Pulse Resp BP Pulse Ox 98.2 F 63 24 188/62 96 09/11/18 04:32 09/11/18 04:32 09/11/18 04:32 09/11/18 04:32 09/11/18 04:32 General appearance: Present: no acute distress, well-nourished - EENT Eyes: Present: PERRL, EOM intact - Neck Neck: Present: supple, normal ROM - Respiratory Respiratory effort: normal Respiratory: bilateral: diminished, negative: rales, rhonchi, wheezing - Cardiovascular Rhythm: regular Heart Sounds: Present: S1 & S2 - Extremities Extremities: no ischemia, abnormal (left AKA) - Abdominal General gastrointestinal: soft, non-tender, non-distended, normal bowel sounds - Integumentary Integumentary: Present: clear, warm - Psychiatric Psychiatric: appropriate mood/affect, cooperative - Neurologic Neurologic: CNII-XII intact, moves all extremities Results - Labs CBC & Chem 7: 08/30/18 05:24 09/11/18 05:25 Labs: Laboratory Last Values WBC 8.9 K/mm3 (4.5-11.0) 08/30/18 05:24 RBC 3.33 M/mm3 (3.65-5.03) L 08/30/18 05:24 Hgb 9.2 gm/dl (10.1-14.3) L 08/30/18 05:24 Hct 28.5 % (30.3-42.9) L 08/30/18 05:24 MCV 86 fl (79-97) 08/30/18 05:24 MCH 28 pg (28-32) 08/30/18 05:24 MCHC 32 % (30-34) 08/30/18 05:24 RDW 15.9 % (13.2-15.2) H 08/30/18 05:24 Plt Count 332 K/mm3 (140-440) 08/30/18 05:24 Lymph % (Auto) Staffing Program Manager 08/24/18 04:37 [place] % (Auto) Staffing Program Manager 08/24/18 04:37 Eos % (Auto) Staffing Program Manager 08/24/18 04:37 Baso % (Auto) Staffing Program Manager 08/24/18 04:37 Lymph # Staffing Program Manager 08/24/18 04:37 [place] # Staffing Program Manager 08/24/18 04:37 Eos # Staffing Program Manager 08/24/18 04:37 Baso # Staffing Program Manager 08/24/18 04:37 Add Manual Diff Complete 08/30/18 05:24 Total Counted 100 08/30/18 05:24 Seg Neutrophils % Staffing Program Manager 08/24/18 04:37 Seg Neuts % (Manual) 69.0 % (40.0-70.0) 08/30/18 05:24 2.0 % 08/30/18 05:24 14.0 % (13.4-35.0) 08/30/18 05:24 Reactive Lymphs % (Man) 0 % 08/30/18 05:24 13.0 % (0.0-7.3) H 08/30/18 05:24 2.0 % (0.0-4.3) 08/30/18 05:24 0 % (0.0-1.8) 08/30/18 05:24 0 % 08/30/18 05:24 0 % 08/30/18 05:24 0 % 08/30/18 05:24 0 % 08/30/18 05:24 Nucleated RBC % Not Reportable 08/30/18 05:24 Seg Neutrophils # Staffing Program Manager 08/24/18 04:37 Seg Neutrophils # Man 6.1 K/mm3 (1.8-7.7) 08/30/18 05:24 Band Neutrophils # 0.2 K/mm3 08/30/18 05:24 1.2 K/mm3 (1.2-5.4) 08/30/18 05:24 Abs React Lymphs (Man) 0.0 K/mm3 08/30/18 05:24 1.2 K/mm3 (0.0-0.8) H 08/30/18 05:24 0.2 K/mm3 (0.0-0.4) 08/30/18 05:24 0.0 K/mm3 (0.0-0.1) 08/30/18 05:24 0.0 K/mm3 08/30/18 05:24 0.0 K/mm3 08/30/18 05:24 0.0 K/mm3 08/30/18 05:24 Blast Cells # 0.0 K/mm3 08/30/18 05:24 WBC Morphology Not Reportable 08/30/18 05:24 Hypersegmented Neuts Not Reportable 08/30/18 05:24 Hyposegmented Neuts Not Reportable 08/30/18 05:24 Hypogranular Neuts Not Reportable 08/30/18 05:24 Not Reportable 08/30/18 05:24 Not Reportable 08/30/18 05:24 Not Reportable 08/30/18 05:24 Not Reportable 08/30/18 05:24 Not Reportable 08/30/18 05:24 Not Reportable 08/30/18 05:24 Consistent w auto 08/30/18 05:24 Not Reportable 08/30/18 05:24 Plt Clumps, EDTA Not Reportable 08/30/18 05:24 Not Reportable 08/30/18 05:24 Not Reportable 08/30/18 05:24 Not Reportable 08/30/18 05:24 Plt Morphology Comment Not Reportable 08/30/18 05:24 RBC Morphology Not Reportable 08/30/18 05:24 Dimorphic RBCs Not Reportable 08/30/18 05:24 Not Reportable 08/30/18 05:24 Not Reportable 08/30/18 05:24 Not Reportable 08/30/18 05:24 Not Reportable 08/30/18 05:24 Not Reportable 08/30/18 05:24 Few 08/30/18 05:24 Not Reportable 08/30/18 05:24 Not Reportable 08/30/18 05:24 Not Reportable 08/30/18 05:24 Not Reportable 08/30/18 05:24 Not Reportable 08/30/18 05:24 Not Reportable 08/30/18 05:24 Not Reportable 08/30/18 05:24 Not Reportable 08/30/18 05:24 Not Reportable 08/30/18 05:24 Not Reportable 08/30/18 05:24 Not Reportable 08/30/18 05:24 Not Reportable 08/30/18 05:24 Not Reportable 08/30/18 05:24 Acanthocytes (Spur) Not Reportable 08/30/18 05:24 Rouleaux Not Reportable 08/30/18 05:24 Not Reportable 08/30/18 05:24 Not Reportable 08/30/18 05:24 Not Reportable 08/30/18 05:24 Not Reportable 08/30/18 05:24 Hem Pathologist Commnt No 08/30/18 05:24 Sodium 140 mmol/L (137-145) 09/11/18 05:25 Potassium 4.8 mmol/L (3.6-5.0) 09/11/18 05:25 Chloride 107.0 mmol/L (98-107) 09/11/18 05:25 Carbon Dioxide 23 mmol/L (22-30) 09/11/18 05:25 15 mmol/L 09/11/18 05:25 BUN 32 mg/dL (7-17) H 09/11/18 05:25 1.6 mg/dL (0.7-1.2) H 09/11/18 05:25 Estimated GFR 39 ml/min 09/11/18 05:25 20 % 09/11/18 05:25 Glucose 121 mg/dL (65-100) H 09/11/18 05:25 POC Glucose 131 (70-105) H 09/11/18 07:59 8.3 % (4-6) H 08/23/18 01:03 313 Mosm/kg 08/23/18 10:10 Lactic Acid 0.80 mmol/L (0.7-2.0) 08/23/18 10:10 7.7 mg/dL (3.5-7.6) H 08/23/18 09:05 Calcium 8.9 mg/dL (8.4-10.2) 09/11/18 05:25 Phosphorus 3.70 mg/dL (2.5-4.5) 08/23/18 09:05 Magnesium 1.90 mg/dL (1.7-2.3) 08/28/18 13:05 0.30 mg/dL (0.1-1.2) 08/23/18 09:05 AST 19 units/L (5-40) 08/23/18 09:05 ALT 7 units/L (7-56) 08/23/18 09:05 93 units/L (35-129) 08/23/18 09:05 612 units/L (30-135) H 08/23/18 09:05 7.4 g/dL (6.3-8.2) 08/23/18 09:05 3.1 g/dL (3.9-5) L 08/23/18 09:05 0.7 % 07/16/19 09:05 Triglycerides 160 mg/dL (2-149) H 08/23/18 04:08 Cholesterol 325 mg/dL (50-199) H 08/23/18 04:08 248 mg/dL (50-130) H 08/23/18 04:08 60 mg/dL (40-59) H 08/23/18 04:08 5.41 % 08/23/18 04:08 0.08 ng/mL/h (0.25-5.82) L 08/23/18 10:10 3 ng/dL () 08/23/18 10:10 Aldosterone/Renin Dir 37.5 Ratio (0.9-28.9) H 08/23/18 10:10 [place] (Yellow) 08/22/18 19:45 Cloudy (Clear) 08/22/18 19:45 6.0 (5.0-7.0) 08/22/18 19:45 Ur Specific [place] 1.024 (1.003-1.030) 08/22/18 19:45 >500 mg/dL (Negative) 08/22/18 19:45 150 mg/dL (Negative) 08/22/18 19:45 Neg mg/dL (Negative) 08/22/18 19:45 Sm (Negative) 08/22/18 19:45 Neg (Negative) 08/22/18 19:45 Neg (Negative) 08/22/18 19:45 < 2.0 mg/dL (<2.0) 08/22/18 19:45 Ur Leukocyte Esterase Tr (Negative) 08/22/18 19:45 42.0 /HPF (0.0-6.0) H 08/22/18 19:45 11.0 /HPF (0.0-6.0) 08/22/18 19:45 U Epithel Cells (Auto) 4.0 /HPF (0-13.0) 08/22/18 19:45 4+ /HPF (Negative) 08/22/18 19:45 Hyaline Casts 7 /LPF 08/22/18 19:45 1+ /HPF 08/22/18 19:45 Active Medications - Current Medications Current Medications: Generic Name Dose Route Start Last Admin Trade Name Freq PRN Reason Stop Dose Admin Acetaminophen 650 mg 08/22/18 23:50 09/07/18 20:34 Tylenol PO 650 mg Q4H PRN Administration Pain MILD(1-3)/Fever >100.5/CARTER Amlodipine Besylate 10 mg 08/24/18 10:00 09/10/18 09:24 Norvasc PO 10 mg DAILY NASH Administration Lipase/Protease/Amylase 1 each 08/23/18 15:27 Pancreazmykel Billingsley 10,500 Unit FEEDTUBE PRN PRN For Clogged Feeding Tube Aspirin 81 mg 08/24/18 10:00 09/10/18 09:23 Baby Aspirin PO 81 mg DAILY NASH Administration Carvedilol 25 mg 08/25/18 22:00 09/10/18 22:58 Coreg PO 25 mg BID NASH Administration Clonidine HCl 0.2 mg 09/09/18 22:00 09/10/18 00:36 Catapres-Tts Patch TD 0.2 mg Fr NASH Administration Dextrose 50 ml 08/22/18 23:50 D50w (25gm) Syringe IV PRN PRN Hypoglycemia Fluoxetine HCl 40 mg 08/24/18 10:00 09/10/18 09:24 Prozac PO 40 mg QDAY NASH Administration Heparin Sodium (Porcine) 5,000 unit 08/23/18 10:00 09/10/18 22:58 Heparin SUB-Q 5,000 unit Q12HR NASH Administration Hydralazine HCl 10 mg 08/24/18 07:32 09/02/18 10:34 Apresoline IV 10 mg Q4HR PRN Administration HTN >155/90 Hydralazine HCl 100 mg 08/28/18 14:00 09/11/18 05:56 Apresoline PO 100 mg Q8HR NASH Administration Insulin Human Isoph/Insulin Regular 15 unit 08/25/18 12:00 09/10/18 17:00 Humulin 70/30 SUB-Q 15 unit BIDDIAB NASH Administration Insulin Human Lispro 0 unit 09/05/18 13:00 09/10/18 22:58 Humalog SUB-Q 3 unit ACHS NASH Administration Protocol Levetiracetam 1,000 mg 08/27/18 10:00 09/10/18 22:57 Keppra PO 1,000 mg BID NSAH Administration Lorazepam 1 mg 08/23/18 01:58 Ativan IV Q4H PRN Seizures Olanzapine 2.5 mg 08/24/18 10:00 09/10/18 09:20 Zyprexa PO 2.5 mg DAILY NASH Administration Ondansetron HCl 4 mg 08/22/18 23:50 Zofran IV Q8H PRN Nausea And Vomiting Simple Syrup 15 ml 08/23/18 15:27 Simple Syrup FEEDTUBE PRN PRN Hypoglycemia Simple Syrup 30 ml 08/23/18 15:27 Simple Syrup FEEDTUBE PRN PRN Hypoglycemia Sodium Bicarbonate 325 mg 08/23/18 15:27 Sodium Bicarbonate FEEDTUBE PRN PRN For Clogged Feeding Tube Sodium Chloride 10 ml 08/22/18 23:50 09/10/18 22:58 Sodium Chloride Flush Syringe 10 Ml IV 10 ml BID NASH Administration Sodium Chloride 10 ml 08/23/18 00:12 Sodium Chloride Flush Syringe 10 Ml IV PRN PRN LINE FLUSH Nutrition/Malnutrition Assess - Dietary Evaluation Nutrition/Malnutrition Findings: Nutrition Notes Start: 08/23/18 15:56 Freq: Status: Active Protocol: Document 09/09/18 16:08 (Rec: 09/09/18 16:18 [id number]) Nutrition Notes Initial or Follow up Reassessment Current Diagnosis Acute Kidney Injury,CKD(stage I-IV),Coronary Artery Disease, Diabetes,Sepsis,Hypertension, Hyperlipidemia Other Pertinent Diagnosis PVD, Hx endometrial CA, Seizures, AKA Current Diet Renal w/Nepro 1 daily Labs/Tests A1c 8.3 Pertinent Medications Reviewed Height 5 ft Weight 56.3 kg [place] Body Weight (kg) 45.45 BMI 24.2 Weight change and time frame Noted wt loss. Unable to weigh pt d/t error on bedscale. Asked tech to weigh pt when possible. Subjective/Other Information Pt alseep at time of visit. Per tech pt ate 25% of breakfast and drinks the Nepro . Also mentioned that pt does not seem to like the eggs or toast and consistently does not eat them. Percent of energy/protein needs met: 77%/72% Burn Absent Trauma Absent #1 Nutrition Diagnosis Inadequate oral intake As Evidenced by Signs and Symptoms pt meeting 77% of calorie and 72% of protei needs Diagnosis Progress(for reassessment Improved documentation) Is patient on ventilator? No Is Patient Ambulatory and/or Out of Bed No REE-([place]. Jeor-confined to bed) 1246.872 Calculation Used for Recommendations Kcal/kg Additional Notes Protein Needs: 54-67g (0.8-1g/ kg 67kg adjBW) Fluid Needs: 1 ml/kcal Nutrition Intervention Change Diet Order: Renal Add Supplement/Snack (indicate name/kcal Nepro BID /protein ) Provides kCal: 850 Provides Protein (gm) 38 Goal #1 Meet at least 75% of calorie and protein needs via PO and ONS intakes Anticipated Discharge Needs: Renal diet Follow-Up By: 09/12/18 Additional Comments Follow for PO and ONS intakes, DM diet education
[2018-09-11] MEDS: HumaLOG SUB-Q SCH ×4 (08:37→23:31)
[2018-09-11] MEDS: COREG PO SCH ×2 (09:33→23:30)
[2018-09-11] MEDS: KEPPRA PO SCH ×2 (09:33→23:30)
[2018-09-11] MEDS: PROzac PO SCH (09:33)
[2018-09-11] MEDS: NORVASC PO SCH (09:33)
[2018-09-11] MEDS: SODIUM CHLORIDE FLUSH SYRINGE 10 ML IV SCH ×2 (09:34→23:31)
[2018-09-11] MEDS: HEPARIN SUB-Q SCH ×2 (09:34→23:30)
[2018-09-11] MEDS: BABY ASPIRIN PO SCH (09:34)
--- NOTE | 2018-09-11 11:49 | Progress Note ---
Assessment and Plan Impression * Nonoliguric acute kidney injury secondary to prerenal azotemia on stage III CKD --Baseline SCr 1.4-1.7mg/dL * ESBL Ecoli UTI * Hyperkalemia * Hypertension * Type II DM * Metabolic acidosis * Seizure disorder * History of endometrial cancer * Depression * Bradycardia, iatrogenic Recommendation * Renal function remains stable - at baseline * Encourage po hydration * Renal diet * Abx per primary team * Bradycardia seems to be better with reduction of Catapres patch. * Glycemic control per primary team * Avoid nephrotoxins * Dose medications for renal function * Discharge planning in progress Subjective Date of service: 09/11/18 Principal diagnosis: UTI Interval history: Patient is comfortable today. Denies any shortness of breath. No nausea vomiting or diarrhea Objective - Vital Signs Vital signs: Vital Signs - 12hr 09/11/18 09/11/18 04:32 09:33 Temperature 98.2 F Pulse Rate 63 Respiratory 24 Rate Blood Pressure 188/62 178/61 O2 Sat by Pulse 96 Oximetry - General Appearance General appearance: well-developed, well-nourished, appears stated age EENT: PERRL, mucous membranes moist Neck: no JVD, no thyromegaly, no carotid bruit, supple Respiratory: Present: Clear to Ascultation Cardiology: regular, normal heart rate, S1S2, no murmurs Gastrointestinal: normal, normoactive bowel sounds Integumentary: other (left above-knee amputation. 1+ edema on the right side) - Lab 08/30/18 05:24 09/11/18 05:25 Most recent lab results Calcium 8.9 mg/dL (8.4-10.2) 09/11/18 05:25 Phosphorus 3.70 mg/dL (2.5-4.5) 08/23/18 09:05 Magnesium 1.90 mg/dL (1.7-2.3) 08/28/18 13:05 Medications & Allergies - Medications Allergies/Adverse Reactions: Allergies No Known Allergies Allergy (Unverified 06/05/17 13:30) Home Medications: Home Medications Medication Instructions Recorded Confirmed Last Taken Type Aspirin 81 mg PO DAILY 11/14/17 08/22/18 Unknown History Megestrol Acetate 800 mg PO DAILY 11/14/17 08/22/18 Unknown History OLANZapine [Zyprexa] 2.5 mg PO DAILY 11/14/17 08/22/18 Unknown History FLUoxetine [PROzac] 40 mg PO QDAY #30 capsule 11/26/17 08/22/18 Unknown Rx Ferrous Sulfate [Ferrous Sulfate 300 mg PO QDAY #30 oral.liqd 11/26/17 08/22/18 Unknown Rx Oral Liq 300 Mg/5 Ml] Pantoprazole [Protonix TAB] 40 mg PO QDAY #30 tablet 11/26/17 08/22/18 Unknown Rx amLODIPine [Norvasc] 10 mg PO DAILY #30 tablet 11/26/17 08/22/18 Unknown Rx Carvedilol [Coreg] 25 mg PO BID tablet 12/06/17 08/22/18 Unknown Rx cloNIDine [Catapres] 0.1 mg PO Q8H tablet 12/06/17 08/22/18 Unknown Rx traMADol [Ultram 50 MG tab] 50 mg PO Q12HR PRN #20 tablet 12/06/17 08/22/18 Unknown Rx Acetaminophen 325 mg PO Q6H PRN 12/22/17 08/22/18 Unknown History Glucagon HCl 1 mg IM ONCE PRN 12/22/17 08/22/18 Unknown History Klor-Con 10 10 meq PO DAILY 12/22/17 08/22/18 Unknown History Lispro Insulin [HumaLOG] See Protocol SC ACHS 12/22/17 08/22/18 Unknown History Simethicone 80 mg PO Q8H PRN 12/22/17 08/22/18 Unknown History levETIRAcetam [Keppra ORAL LIQ] 750 mg PO BID 30 Days bottle 01/04/18 08/22/18 Unknown Rx Active Medications: Generic Name Dose Route Start Last Admin Trade Name Freq PRN Reason Stop Dose Admin Acetaminophen 650 mg 08/22/18 23:50 09/07/18 20:34 Tylenol PO 650 mg Q4H PRN Administration Pain MILD(1-3)/Fever >100.5/CARTER Amlodipine Besylate 10 mg 08/24/18 10:00 09/11/18 09:33 Norvasc PO 10 mg DAILY NASH Administration Lipase/Protease/Amylase 1 each 08/23/18 15:27 Pancrerosa Billingsley 10,500 Unit FEEDTUBE PRN PRN For Clogged Feeding Tube Aspirin 81 mg 08/24/18 10:00 09/11/18 09:34 Baby Aspirin PO 81 mg DAILY NASH Administration Carvedilol 25 mg 08/25/18 22:00 09/11/18 09:33 Coreg PO 25 mg BID NASH Administration Clonidine HCl 0.2 mg 09/09/18 22:00 09/10/18 00:36 Catapres-Tts Patch TD 0.2 mg Fr NASH Administration Dextrose 50 ml 08/22/18 23:50 D50w (25gm) Syringe IV PRN PRN Hypoglycemia Fluoxetine HCl 40 mg 08/24/18 10:00 09/11/18 09:33 Prozac PO 40 mg QDAY NASH Administration Heparin Sodium (Porcine) 5,000 unit 08/23/18 10:00 09/11/18 09:34 Heparin SUB-Q 5,000 unit Q12HR NASH Administration Hydralazine HCl 10 mg 08/24/18 07:32 09/02/18 10:34 Apresoline IV 10 mg Q4HR PRN Administration HTN >155/90 Hydralazine HCl 100 mg 08/28/18 14:00 09/11/18 05:56 Apresoline PO 100 mg Q8HR NASH Administration Insulin Human Isoph/Insulin Regular 15 unit 08/25/18 12:00 09/11/18 08:36 Humulin 70/30 SUB-Q 15 unit BIDDIAB NASH Administration Insulin Human Lispro 0 unit 09/05/18 13:00 09/11/18 08:37 Humalog SUB-Q Not Given ACHS [facility] Protocol Levetiracetam 1,000 mg 08/27/18 10:00 09/11/18 09:33 Keppra PO 1,000 mg BID NASH Administration Lorazepam 1 mg 08/23/18 01:58 Ativan IV Q4H PRN Seizures Olanzapine 2.5 mg 08/24/18 10:00 09/11/18 09:33 Zyprexa PO 2.5 mg DAILY NASH Administration Ondansetron HCl 4 mg 08/22/18 23:50 Zofran IV Q8H PRN Nausea And Vomiting Simple Syrup 15 ml 08/23/18 15:27 Simple Syrup FEEDTUBE PRN PRN Hypoglycemia Simple Syrup 30 ml 08/23/18 15:27 Simple Syrup FEEDTUBE PRN PRN Hypoglycemia Sodium Bicarbonate 325 mg 08/23/18 15:27 Sodium Bicarbonate FEEDTUBE PRN PRN For Clogged Feeding Tube Sodium Chloride 10 ml 08/22/18 23:50 09/11/18 09:34 Sodium Chloride Flush Syringe 10 Ml IV 10 ml BID NASH Administration Sodium Chloride 10 ml 08/23/18 00:12 Sodium Chloride Flush Syringe 10 Ml IV PRN PRN LINE FLUSH
[2018-09-12] MEDS: APRESOLINE PO SCH ×3 (05:17→22:04)
[2018-09-12] MEDS: HumaLOG SUB-Q SCH ×4 (09:23→21:53)
--- NOTE | 2018-09-12 09:29 | Progress Note ---
Subjective Principal diagnosis: UTI Interval history: Patient was seen today for follow-up on multiple renal related issues Events of this hospitalization were noted Interdisciplinary notes were also reviewed Vitals intake output medications were reviewed Past medical history: Reviewed Family, social history: Reviewed Allergies: Reviewed Physical examination General: No acute distress Vitals: Reviewed HEENT: Oral mucosa moist no icterus Neck: Supple no thyromegaly nodular mass or JVD Chest: Clear to auscultation anteriorly Heart: Regular rate and rhythm S1-S2 heard no S3-S4 Abdomen: Soft nontender no suprapubic masses no organomegaly Extremity: Dry skin less than 1+ edema Psych: No evidence of any agitation and aggression noted Derm: No petechial rash Assessment and plan: Acute kidney injury, underlying stage III chronic kidney disease baseline creatinine between 1.4-1.7 Patient is stable from renal standpoint creatinine has been around 1.6 last 3-4 days Renal ultrasonogram essentially unremarkable We'll order low-dose chlorthalidone Urinary tract infection with ESBL :treated, ultrasound shows no evidence of hydronephrosis Hyperkalemia: Stable at this time avoid nonsteroidal drugs a centimeters a ngiotensin receptor georges Hypertension: To monitor and follow, admitted with accelerated hypertension Metabolic acidosis: Appears to be doing better Multiple other comorbidities including seizure disorder endometrial cancer depression bradycardia etc. Admitted with hypertensive emergency was on Cardene drip, Encephalopathy currently improving has had status epilepticus, Prognosis: Guarded We'll continue to follow and make recommendation from renal standpoint Objective - Vital Signs Vital signs: Vital Signs - 12hr 09/11/18 09/12/18 22:00 05:00 Temperature 98.4 F Pulse Rate 61 Respiratory 20 Rate Respiratory 18 Rate [ Generalized] Blood Pressure 154/58 [Right] O2 Sat by Pulse 95 Oximetry - Lab 09/13/18 05:25 09/13/18 05:25 Most recent lab results Calcium 8.9 mg/dL (8.4-10.2) 09/11/18 05:25 Phosphorus 3.70 mg/dL (2.5-4.5) 08/23/18 09:05 Magnesium 1.90 mg/dL (1.7-2.3) 08/28/18 13:05 Medications & Allergies - Medications Allergies/Adverse Reactions: Allergies No Known Allergies Allergy (Unverified 06/05/17 13:30) Home Medications: Home Medications Medication Instructions Recorded Confirmed Last Taken Type Aspirin 81 mg PO DAILY 11/14/17 08/22/18 Unknown History Megestrol Acetate 800 mg PO DAILY 11/14/17 08/22/18 Unknown History OLANZapine [Zyprexa] 2.5 mg PO DAILY 11/14/17 08/22/18 Unknown History FLUoxetine [PROzac] 40 mg PO QDAY #30 capsule 11/26/17 08/22/18 Unknown Rx Ferrous Sulfate [Ferrous Sulfate 300 mg PO QDAY #30 oral.liqd 11/26/17 08/22/18 Unknown Rx Oral Liq 300 Mg/5 Ml] Pantoprazole [Protonix TAB] 40 mg PO QDAY #30 tablet 11/26/17 08/22/18 Unknown Rx amLODIPine [Norvasc] 10 mg PO DAILY #30 tablet 11/26/17 08/22/18 Unknown Rx Carvedilol [Coreg] 25 mg PO BID tablet 12/06/17 08/22/18 Unknown Rx cloNIDine [Catapres] 0.1 mg PO Q8H tablet 12/06/17 08/22/18 Unknown Rx traMADol [Ultram 50 MG tab] 50 mg PO Q12HR PRN #20 tablet 12/06/17 08/22/18 Unknown Rx Acetaminophen 325 mg PO Q6H PRN 12/22/17 08/22/18 Unknown History Glucagon HCl 1 mg IM ONCE PRN 12/22/17 08/22/18 Unknown History Klor-Con 10 10 meq PO DAILY 12/22/17 08/22/18 Unknown History Lispro Insulin [HumaLOG] See Protocol SC ACHS 12/22/17 08/22/18 Unknown History Simethicone 80 mg PO Q8H PRN 12/22/17 08/22/18 Unknown History levETIRAcetam [Keppra ORAL LIQ] 750 mg PO BID 30 Days bottle 01/04/18 08/22/18 Unknown Rx Active Medications: Generic Name Dose Route Start Last Admin Trade Name Freq PRN Reason Stop Dose Admin Acetaminophen 650 mg 08/22/18 23:50 09/07/18 20:34 Tylenol PO 650 mg Q4H PRN Administration Pain MILD(1-3)/Fever >100.5/CARTER Amlodipine Besylate 10 mg 08/24/18 10:00 09/11/18 09:33 Norvasc PO 10 mg DAILY NASH Administration Lipase/Protease/Amylase 1 each 08/23/18 15:27 Pancrerosa [place] 10,500 Unit FEEDTUBE PRN PRN For Clogged Feeding Tube Aspirin 81 mg 08/24/18 10:00 09/11/18 09:34 Baby Aspirin PO 81 mg DAILY NASH Administration Carvedilol 25 mg 08/25/18 22:00 09/11/18 23:30 Coreg PO 25 mg BID NASH Administration Clonidine HCl 0.2 mg 09/09/18 22:00 09/10/18 00:36 Catapres-Tts Patch TD 0.2 mg Fr NASH Administration Dextrose 50 ml 08/22/18 23:50 D50w (25gm) Syringe IV PRN PRN Hypoglycemia Fluoxetine HCl 40 mg 08/24/18 10:00 09/11/18 09:33 Prozac PO 40 mg QDAY NASH Administration Heparin Sodium (Porcine) 5,000 unit 08/23/18 10:00 09/11/18 23:30 Heparin SUB-Q 5,000 unit Q12HR NASH Administration Hydralazine HCl 10 mg 08/24/18 07:32 09/02/18 10:34 Apresoline IV 10 mg Q4HR PRN Administration HTN >155/90 Hydralazine HCl 100 mg 08/28/18 14:00 09/12/18 05:17 Apresoline PO 100 mg Q8HR NASH Administration Insulin Human Isoph/Insulin Regular 15 unit 08/25/18 12:00 09/12/18 09:28 Humulin 70/30 SUB-Q Not Given [facility]AB [facility] Insulin Human Lispro 0 unit 09/05/18 13:00 09/12/18 09:23 Humalog SUB-Q Not Given ACHS [facility] Protocol Levetiracetam 1,000 mg 08/27/18 10:00 09/11/18 23:30 Keppra PO 1,000 mg BID NASH Administration Lorazepam 1 mg 08/23/18 01:58 Ativan IV Q4H PRN Seizures Olanzapine 2.5 mg 08/24/18 10:00 09/11/18 09:33 Zyprexa PO 2.5 mg DAILY [facility] Administration Ondansetron HCl 4 mg 08/22/18 23:50 Zofran IV Q8H PRN Nausea And Vomiting Simple Syrup 15 ml 08/23/18 15:27 Simple Syrup FEEDTUBE PRN PRN Hypoglycemia Simple Syrup 30 ml 08/23/18 15:27 Simple Syrup FEEDTUBE PRN PRN Hypoglycemia Sodium Bicarbonate 325 mg 08/23/18 15:27 Sodium Bicarbonate FEEDTUBE PRN PRN For Clogged Feeding Tube Sodium Chloride 10 ml 08/22/18 23:50 09/11/18 23:31 Sodium Chloride Flush Syringe 10 Ml IV 10 ml BID NASH Administration Sodium Chloride 10 ml 08/23/18 00:12 Sodium Chloride Flush Syringe 10 Ml IV PRN PRN LINE FLUSH
--- NOTE | 2018-09-12 11:02 | Progress Note ---
Assessment and Plan Assessment and plan: 62-year-old female patient in prison resident was admitted through emergency room with witnessed seizures and status epilepticus Patient was also noted to have hypertensive emergency requiring Cardene drip, admitted and stabilized in ICU, transferred to medical floor. Patient was placed on antiepileptic medications, seizure precautions, evaluated by neurology Patient had UTI present on admission positive for ESBL, placed on contact isolation, evaluated by ID, received meropenem for total 4 days, patient's symptoms significantly improved, ID advised to continue contact isolation. Patient did not have any new episodes of seizures, is hemodynamically and clinically stable for discharge However isolation rooms are not available in the prison. Awaiting to return to prison when isolation room is available CXR: Mild cardiomegaly and pulm vasc congestion Assessment and plan; --Hypertensive Emergency: Present on admission. Blood pressures uncontrolled this morning Patient is on high doses of multiple antihypertensives Recheck after a meds and adjust as needed --Metabolic encephalopathy; present on admission; resolved --Sepsis secondary to UTI /ESBL;present on admission Completed total 4 days of Meropenem,per ID , contact isolation ID adv to continue contact isolation upon DC[no isolation room available available at SNF] --Status epilepticus: On admission No new episodes of seizure, Seizure precautions,on keppra 1000mg bid Ativan when necessary, neurology evaluated the patient. --CLINT on CKD 3: Vasomotor nephropathy continue to monitor renal function, avoid nephrotoxins, creatinine level trending down Nephrology following --Hyperkalemia: Resolved. --Moderate to severe malnutrition: Nutrition supplements, dietitian evaluated --Severe debility; PT evaluated, poor rehabilitation potential --Insulin-dependent diabetes; Accu-Chek sliding scale coverage and ADA diet Long-acting insulin,hemoglobin A1c 8.3 --History of left AKA: Supportive care --History of endometrial cancer status post hysterectomy,stable --History of major depression; continue current antidepression medications --Dyslipidemia; stable on lipid-lowering medicine, low-cholesterol diet --DVT Prophylaxis; Lovenox Patient is medically stable for discharge Disposition ;Pt will return to SNF when isolation room is available History Interval history: Patient Is Stable, no new complaints Vital signs noted, patient is alert awake oriented Awaiting SNF placement when isolated room is available Vital Signs noted Hospitalist Physical - Constitutional Vitals: Temp Pulse Resp BP Pulse Ox 98.4 F 61 20 154/58 95 09/12/18 05:00 09/12/18 05:00 09/12/18 05:00 09/12/18 05:00 09/12/18 05:00 General appearance: Present: no acute distress, well-nourished - EENT Eyes: Present: PERRL, EOM intact - Neck Neck: Present: supple, normal ROM - Respiratory Respiratory effort: normal Respiratory: bilateral: diminished, negative: rales, rhonchi, wheezing - Cardiovascular Rhythm: regular Heart Sounds: Present: S1 & S2 - Extremities Extremities: no ischemia, No edema, abnormal (left AKA) - Abdominal General gastrointestinal: soft, non-tender, non-distended, normal bowel sounds - Integumentary Integumentary: Present: clear, warm - Psychiatric Psychiatric: appropriate mood/affect - Neurologic Neurologic: CNII-XII intact, moves all extremities Results - Labs CBC & Chem 7: 08/30/18 05:24 09/11/18 05:25 Labs: Laboratory Last Values WBC 8.9 K/mm3 (4.5-11.0) 08/30/18 05:24 RBC 3.33 M/mm3 (3.65-5.03) L 08/30/18 05:24 Hgb 9.2 gm/dl (10.1-14.3) L 08/30/18 05:24 Hct 28.5 % (30.3-42.9) L 08/30/18 05:24 MCV 86 fl (79-97) 08/30/18 05:24 MCH 28 pg (28-32) 08/30/18 05:24 MCHC 32 % (30-34) 08/30/18 05:24 RDW 15.9 % (13.2-15.2) H 08/30/18 05:24 Plt Count 332 K/mm3 (140-440) 08/30/18 05:24 Lymph % (Auto) [employer] 08/24/18 04:37 Colbert % (Auto) [employer] 08/24/18 04:37 Eos % (Auto) [employer] 08/24/18 04:37 Baso % (Auto) [employer] 08/24/18 04:37 Lymph # [employer] 08/24/18 04:37 Colbert # [employer] 08/24/18 04:37 Eos # [employer] 08/24/18 04:37 Baso # [employer] 08/24/18 04:37 Add Manual Diff Complete 08/30/18 05:24 Total Counted 100 08/30/18 05:24 Seg Neutrophils % [employer] 08/24/18 04:37 Seg Neuts % (Manual) 69.0 % (40.0-70.0) 08/30/18 05:24 2.0 % 08/30/18 05:24 14.0 % (13.4-35.0) 08/30/18 05:24 Reactive Lymphs % (Man) 0 % 08/30/18 05:24 13.0 % (0.0-7.3) H 08/30/18 05:24 2.0 % (0.0-4.3) 08/30/18 05:24 0 % (0.0-1.8) 08/30/18 05:24 0 % 08/30/18 05:24 0 % 08/30/18 05:24 0 % 08/30/18 05:24 0 % 08/30/18 05:24 Nucleated RBC % Not Reportable 08/30/18 05:24 Seg Neutrophils # [employer] 08/24/18 04:37 Seg Neutrophils # Man 6.1 K/mm3 (1.8-7.7) 08/30/18 05:24 Band Neutrophils # 0.2 K/mm3 08/30/18 05:24 1.2 K/mm3 (1.2-5.4) 08/30/18 05:24 Abs React Lymphs (Man) 0.0 K/mm3 08/30/18 05:24 1.2 K/mm3 (0.0-0.8) H 08/30/18 05:24 0.2 K/mm3 (0.0-0.4) 08/30/18 05:24 0.0 K/mm3 (0.0-0.1) 08/30/18 05:24 0.0 K/mm3 08/30/18 05:24 0.0 K/mm3 08/30/18 05:24 0.0 K/mm3 08/30/18 05:24 Blast Cells # 0.0 K/mm3 08/30/18 05:24 WBC Morphology Not Reportable 08/30/18 05:24 Hypersegmented Neuts Not Reportable 08/30/18 05:24 Hyposegmented Neuts Not Reportable 08/30/18 05:24 Hypogranular Neuts Not Reportable 08/30/18 05:24 Not Reportable 08/30/18 05:24 Not Reportable 08/30/18 05:24 Not Reportable 08/30/18 05:24 Not Reportable 08/30/18 05:24 Not Reportable 08/30/18 05:24 Not Reportable 08/30/18 05:24 Consistent w auto 08/30/18 05:24 Not Reportable 08/30/18 05:24 Plt Clumps, EDTA Not Reportable 08/30/18 05:24 Not Reportable 08/30/18 05:24 Not Reportable 08/30/18 05:24 Not Reportable 08/30/18 05:24 Plt Morphology Comment Not Reportable 08/30/18 05:24 RBC Morphology Not Reportable 08/30/18 05:24 Dimorphic RBCs Not Reportable 08/30/18 05:24 Not Reportable 08/30/18 05:24 Not Reportable 08/30/18 05:24 Not Reportable 08/30/18 05:24 Not Reportable 08/30/18 05:24 Not Reportable 08/30/18 05:24 Few 08/30/18 05:24 Not Reportable 08/30/18 05:24 Not Reportable 08/30/18 05:24 Not Reportable 08/30/18 05:24 Not Reportable 08/30/18 05:24 Not Reportable 08/30/18 05:24 Not Reportable 08/30/18 05:24 Not Reportable 08/30/18 05:24 Not Reportable 08/30/18 05:24 Not Reportable 08/30/18 05:24 Not Reportable 08/30/18 05:24 Not Reportable 08/30/18 05:24 Not Reportable 08/30/18 05:24 Not Reportable 08/30/18 05:24 Acanthocytes (Spur) Not Reportable 08/30/18 05:24 Rouleaux Not Reportable 08/30/18 05:24 Not Reportable 08/30/18 05:24 Not Reportable 08/30/18 05:24 Not Reportable 08/30/18 05:24 Not Reportable 08/30/18 05:24 Hem Pathologist Commnt No 08/30/18 05:24 Sodium 140 mmol/L (137-145) 09/11/18 05:25 Potassium 4.8 mmol/L (3.6-5.0) 09/11/18 05:25 Chloride 107.0 mmol/L (98-107) 09/11/18 05:25 Carbon Dioxide 23 mmol/L (22-30) 09/11/18 05:25 15 mmol/L 09/11/18 05:25 BUN 32 mg/dL (7-17) H 09/11/18 05:25 1.6 mg/dL (0.7-1.2) H 09/11/18 05:25 Estimated GFR 39 ml/min 09/11/18 05:25 20 % 09/11/18 05:25 Glucose 121 mg/dL (65-100) H 09/11/18 05:25 POC Glucose 136 (70-105) H 09/12/18 08:13 8.3 % (4-6) H 08/23/18 01:03 313 Mosm/kg 08/23/18 10:10 Lactic Acid 0.80 mmol/L (0.7-2.0) 08/23/18 10:10 7.7 mg/dL (3.5-7.6) H 08/23/18 09:05 Calcium 8.9 mg/dL (8.4-10.2) 09/11/18 05:25 Phosphorus 3.70 mg/dL (2.5-4.5) 08/23/18 09:05 Magnesium 1.90 mg/dL (1.7-2.3) 08/28/18 13:05 0.30 mg/dL (0.1-1.2) 08/23/18 09:05 AST 19 units/L (5-40) 08/23/18 09:05 ALT 7 units/L (7-56) 08/23/18 09:05 93 units/L (35-129) 08/23/18 09:05 612 units/L (30-135) H 08/23/18 09:05 7.4 g/dL (6.3-8.2) 08/23/18 09:05 3.1 g/dL (3.9-5) L 08/23/18 09:05 0.7 % 08/23/18 09:05 Triglycerides 160 mg/dL (2-149) H 08/23/18 04:08 Cholesterol 325 mg/dL (50-199) H 08/23/18 04:08 248 mg/dL (50-130) H 08/23/18 04:08 60 mg/dL (40-59) H 08/23/18 04:08 5.41 % 08/23/18 04:08 0.08 ng/mL/h (0.25-5.82) L 08/23/18 10:10 3 ng/dL () 08/23/18 10:10 Aldosterone/Renin Dir 37.5 Ratio (0.9-28.9) H 08/23/18 10:10 [place] (Yellow) 08/22/18 19:45 Cloudy (Clear) 08/22/18 19:45 6.0 (5.0-7.0) 08/22/18 19:45 Ur Specific [place] 1.024 (1.003-1.030) 08/22/18 19:45 >500 mg/dL (Negative) 08/22/18 19:45 150 mg/dL (Negative) 08/22/18 19:45 Neg mg/dL (Negative) 08/22/18 19:45 Sm (Negative) 08/22/18 19:45 Neg (Negative) 08/22/18 19:45 Neg (Negative) 08/22/18 19:45 < 2.0 mg/dL (<2.0) 08/22/18 19:45 Ur Leukocyte Esterase Tr (Negative) 08/22/18 19:45 42.0 /HPF (0.0-6.0) H 08/22/18 19:45 11.0 /HPF (0.0-6.0) 08/22/18 19:45 U Epithel Cells (Auto) 4.0 /HPF (0-13.0) 08/22/18 19:45 4+ /HPF (Negative) 08/22/18 19:45 Hyaline Casts 7 /LPF 08/22/18 19:45 1+ /HPF 08/22/18 19:45 Active Medications - Current Medications Current Medications: Generic Name Dose Route Start Last Admin Trade Name Freq PRN Reason Stop Dose Admin Acetaminophen 650 mg 08/22/18 23:50 09/07/18 20:34 Tylenol PO 650 mg Q4H PRN Administration Pain MILD(1-3)/Fever >100.5/CARTER Amlodipine Besylate 10 mg 08/24/18 10:00 09/11/18 09:33 Norvasc PO 10 mg DAILY NASH Administration Lipase/Protease/Amylase 1 each 08/23/18 15:[address] 10,500 Unit FEEDTUBE PRN PRN For Clogged Feeding Tube Aspirin 81 mg 08/24/18 10:00 09/11/18 09:34 Baby Aspirin PO 81 mg DAILY NAS[facility] Administration Carvedilol 25 mg 08/25/18 22:00 09/11/18 23:30 Coreg PO 25 mg BID NASH Administration Chlorthalidone 12.5 mg 09/12/18 10:00 Thalitone PO QDAY NASH Clonidine HCl 0.2 mg 09/09/18 22:00 09/10/18 00:36 Catapres-Tts Patch TD 0.2 mg Fr NASH Administration Dextrose 50 ml 08/22/18 23:50 D50w (25gm) Syringe IV PRN PRN Hypoglycemia Fluoxetine HCl 40 mg 08/24/18 10:00 09/11/18 09:33 Prozac PO 40 mg QDAY [facility] Administration Heparin Sodium (Porcine) 5,000 unit 08/23/18 10:00 09/11/18 23:30 Heparin SUB-Q 5,000 unit Q12HR [facility] Administration Hydralazine HCl 10 mg 08/24/18 07:32 09/02/18 10:34 Apresoline IV 10 mg Q4HR PRN Administration HTN >155/90 Hydralazine HCl 100 mg 08/28/18 14:00 09/12/18 05:17 Apresoline PO 100 mg Q8HR [facility] Administration Insulin Human Isoph/Insulin Regular 15 unit 08/25/18 12:00 09/12/18 09:28 Humulin 70/30 SUB-Q Not Given BIDDIAB [facility] Insulin Human Lispro 0 unit 09/05/18 13:00 09/12/18 09:23 Humalog SUB-Q Not Given ACHS [facility] Protocol Levetiracetam 1,000 mg 08/27/18 10:00 09/11/18 23:30 Keppra PO 1,000 mg BID NAS[facility] Administration Lorazepam 1 mg 07/16/19 01:58 Ativan IV Q4H PRN Seizures Olanzapine 2.5 mg 08/24/18 10:00 09/11/18 09:33 Zyprexa PO 2.5 mg DAILY [facility] Administration Ondansetron HCl 4 mg 08/22/18 23:50 Zofran IV Q8H PRN Nausea And Vomiting Simple Syrup 15 ml 08/23/18 15:27 Simple Syrup FEEDTUBE PRN PRN Hypoglycemia Simple Syrup 30 ml 08/23/18 15:27 Simple Syrup FEEDTUBE PRN PRN Hypoglycemia Sodium Bicarbonate 325 mg 08/23/18 15:27 Sodium Bicarbonate FEEDTUBE PRN PRN For Clogged Feeding Tube Sodium Chloride 10 ml 08/22/18 23:50 09/11/18 23:31 Sodium Chloride Flush Syringe 10 Ml IV 10 ml BID [facility] Administration Sodium Chloride 10 ml 08/23/18 00:12 Sodium Chloride Flush Syringe 10 Ml IV PRN PRN LINE FLUSH Nutrition/Malnutrition Assess - Dietary Evaluation Nutrition/Malnutrition Findings: Nutrition Notes Start: 08/23/18 15:56 Freq: Status: Active Protocol: Document 09/09/18 16:08 RM (Rec: 09/09/18 16:18 [email or web address]) Nutrition Notes Initial or Follow up Reassessment Current Diagnosis Acute Kidney Injury,CKD(stage I-IV),Coronary Artery Disease, Diabetes,Sepsis,Hypertension, Hyperlipidemia Other Pertinent Diagnosis PVD, Hx endometrial CA, Seizures, AKA Current Diet Renal w/Nepro 1 daily Labs/Tests A1c 8.3 Pertinent Medications Reviewed Height 5 ft Weight 56.3 kg [place] Body Weight (kg) 45.45 BMI 24.2 Weight change and time frame Noted wt loss. Unable to weigh pt d/t error on bedscale. Asked tech to weigh pt when possible. Subjective/Other Information Pt alseep at time of visit. Per tech pt ate 25% of breakfast and drinks the Nepro . Also mentioned that pt does not seem to like the eggs or toast and consistently does not eat them. Percent of energy/protein needs met: 77%/72% Burn Absent Trauma Absent #1 Nutrition Diagnosis Inadequate oral intake As Evidenced by Signs and Symptoms pt meeting 77% of calorie and 72% of protei needs Diagnosis Progress(for reassessment Improved documentation) Is patient on ventilator? No Is Patient Ambulatory and/or Out of Bed No REE-([place]-[facility] Jeor-confined to bed) 1246.872 Calculation Used for Recommendations Kcal/kg Additional Notes Protein Needs: 54-67g (0.8-1g/ kg 67kg adjBW) Fluid Needs: 1 ml/kcal Nutrition Intervention Change Diet Order: Renal Add Supplement/Snack (indicate name/kcal Nepro BID /protein ) Provides kCal: 850 Provides Protein (gm) 38 Goal #1 Meet at least 75% of calorie and protein needs via PO and ONS intakes Anticipated Discharge Needs: Renal diet Follow-Up By: 09/12/18 Additional Comments Follow for PO and ONS intakes, DM diet education
[2018-09-12] MEDS: PROzac PO SCH (11:52)
[2018-09-12] MEDS: COREG PO SCH ×2 (11:52→22:00)
[2018-09-12] MEDS: NORVASC PO SCH (11:53)
[2018-09-12] MEDS: KEPPRA PO SCH ×2 (11:53→21:54)
[2018-09-12] MEDS: THALITONE PO SCH (11:55)
[2018-09-12] MEDS: SODIUM CHLORIDE FLUSH SYRINGE 10 ML IV SCH ×2 (11:55→22:04)
[2018-09-12] MEDS: HEPARIN SUB-Q SCH ×2 (11:56→21:54)
[2018-09-12] MEDS: BABY ASPIRIN PO SCH (11:58)
[2018-09-13] MEDS: APRESOLINE PO SCH ×3 (05:38→21:58)
[2018-09-13 05:57] LABS: Basophils # (Auto) 0.1 K/mm3 (0.0-0.1); Basophils % (Auto) 1.2 % (0.0-1.8); Eosinophils # (Auto) 0.2 K/mm3 (0.0-0.4); Eosinophils % (Auto) 2.3 % (0.0-4.3); Hematocrit 23.8 % (30.3-42.9); Hemoglobin 7.8 gm/dl (10.1-14.3); Lymphocytes % (Auto) 31.1 % (13.4-35.0); Mean Corpuscular HGB Conc 33 % (30-34); Mean Corpuscular Volume 87 fl (79-97); Monocytes # (Auto) 0.6 K/mm3 (0.0-0.8); Monocytes % (Auto) 8.7 % (0.0-7.3); Platelet Count 236 K/mm3 (140-440); Red Blood Count 2.73 M/mm3 (3.65-5.03); Red Cell Distribution Width 16.8 % (13.2-15.2)
[2018-09-13 06:22] LABS: Calcium 8.8 mg/dL (8.4-10.2)
--- NOTE | 2018-09-13 09:07 | Progress Note ---
Subjective Principal diagnosis: UTI Interval history: Patient was seen today for follow-up on multiple renal related issues Events of this hospitalization were noted Interdisciplinary notes were also reviewed Vitals intake output medications were reviewed Past medical history: Reviewed Family, social history: Reviewed Allergies: Reviewed Physical examination General: No acute distress Vitals: Reviewed HEENT: Oral mucosa moist no icterus Neck: Supple no thyromegaly nodular mass or JVD Chest: Clear to auscultation anteriorly Heart: Regular rate and rhythm S1-S2 heard no S3-S4 Abdomen: Soft nontender no suprapubic masses no organomegaly Extremity: Dry skin less than 1+ edema Psych: No evidence of any agitation and aggression noted Derm: No petechial rash Assessment and plan: Acute kidney injury, underlying stage III chronic kidney disease baseline creatinine between 1.4-1.7 From renal standpoint for creatinine is 1.7 bicarbonate 22 Patient is stable will follow up on as-needed basis Anemia and chronic kidney disease: We'll give her dose of erythropoietin Elevated aldosterone and plasma renin ratio 35 suggestive of secondary hypertension, patient responding well to the current regimen Renal prognosis guarded in her case due to underlying chronic kidney disease We'll also order for immunofixation today Renal ultrasonogram essentially unremarkable Urinary tract infection with ESBL :treated, ultrasound shows no evidence of hydronephrosis Hyperkalemia: Stable at this time avoid nonsteroidal drugs a centimeters angiotensin receptor georges Hypertension: To monitor and follow, admitted with accelerated hypertension Metabolic acidosis: Appears to be doing better Multiple other comorbidities including seizure disorder endometrial cancer depression bradycardia etc. Admitted with hypertensive emergency was on Cardene drip, Encephalopathy currently improving has had status epilepticus, We'll continue to follow and make recommendation from renal standpoint Objective - Vital Signs Vital signs: Vital Signs - 12hr 09/12/18 09/12/18 09/13/18 22:00 22:04 00:23 Temperature 97.8 F Pulse Rate 64 64 60 Respiratory 18 Rate Blood Pressure 170/53 170/53 191/52 O2 Sat by Pulse 94 Oximetry 09/13/18 09/13/18 05:38 05:40 Temperature 99.0 F Pulse Rate 59 L 59 L Respiratory 18 Rate Blood Pressure 144/68 144/68 O2 Sat by Pulse 94 Oximetry - Lab 09/13/18 05:25 09/13/18 05:25 Most recent lab results Calcium 8.8 mg/dL (8.4-10.2) 09/13/18 05:25 Phosphorus 3.70 mg/dL (2.5-4.5) 08/23/18 09:05 Magnesium 1.90 mg/dL (1.7-2.3) 08/28/18 13:05 Medications & Allergies - Medications Allergies/Adverse Reactions: Allergies No Known Allergies Allergy (Unverified 06/05/17 13:30) Home Medications: Home Medications Medication Instructions Recorded Confirmed Last Taken Type Aspirin 81 mg PO DAILY 11/14/17 08/22/18 Unknown History Megestrol Acetate 800 mg PO DAILY 11/14/17 08/22/18 Unknown History OLANZapine [Zyprexa] 2.5 mg PO DAILY 11/14/17 08/22/18 Unknown History FLUoxetine [PROzac] 40 mg PO QDAY #30 capsule 11/26/17 08/22/18 Unknown Rx Ferrous Sulfate [Ferrous Sulfate 300 mg PO QDAY #30 oral.liqd 11/26/17 08/22/18 Unknown Rx Oral Liq 300 Mg/5 Ml] Pantoprazole [Protonix TAB] 40 mg PO QDAY #30 tablet 11/26/17 08/22/18 Unknown Rx amLODIPine [Norvasc] 10 mg PO DAILY #30 tablet 11/26/17 08/22/18 Unknown Rx Carvedilol [Coreg] 25 mg PO BID tablet 12/06/17 08/22/18 Unknown Rx cloNIDine [Catapres] 0.1 mg PO Q8H tablet 12/06/17 08/22/18 Unknown Rx traMADol [Ultram 50 MG tab] 50 mg PO Q12HR PRN #20 tablet 12/06/17 08/22/18 Unknown Rx Acetaminophen 325 mg PO Q6H PRN 12/22/17 08/22/18 Unknown History Glucagon HCl 1 mg IM ONCE PRN 12/22/17 08/22/18 Unknown History Klor-Con 10 10 meq PO DAILY 12/22/17 08/22/18 Unknown History Lispro Insulin [HumaLOG] See Protocol SC ACHS 12/22/17 08/22/18 Unknown History Simethicone 80 mg PO Q8H PRN 12/22/17 08/22/18 Unknown History levETIRAcetam [Keppra ORAL LIQ] 750 mg PO BID 30 Days bottle 01/04/18 08/22/18 Unknown Rx Active Medications: Generic Name Dose Route Start Last Admin Trade Name Tobin PRN Reason Stop Dose Admin Acetaminophen 650 mg 08/22/18 23:50 09/07/18 20:34 Tylenol PO 650 mg Q4H PRN Administration Pain MILD(1-3)/Fever >100.5/CARTER Amlodipine Besylate 10 mg 08/24/18 10:00 09/12/18 11:53 Norvasc PO 10 mg DAILY NASH Administration Lipase/Protease/Amylase 1 each 08/23/18 15:[address] 10,500 Unit FEEDTUBE PRN PRN For Clogged Feeding Tube Aspirin 81 mg 08/24/18 10:00 09/12/18 11:58 Baby Aspirin PO 81 mg DAILY NASH Administration Carvedilol 25 mg 08/25/18 22:00 09/12/18 22:00 Coreg PO 25 mg BID NASH Administration Chlorthalidone 12.5 mg 09/12/18 10:00 09/12/18 11:55 Thalitone PO 12.5 mg QDAY NASH Administration Clonidine HCl 0.2 mg 09/09/18 22:00 09/10/18 00:36 Catapres-Tts Patch TD 0.2 mg Fr NASH Administration Dextrose 50 ml 08/22/18 23:50 D50w (25gm) Syringe IV PRN PRN Hypoglycemia Fluoxetine HCl 40 mg 08/24/18 10:00 09/12/18 11:52 Prozac PO 40 mg QDAY NASH Administration Heparin Sodium (Porcine) 5,000 unit 08/23/18 10:00 09/12/18 21:54 Heparin SUB-Q 5,000 unit Q12HR NASH Administration Hydralazine HCl 10 mg 08/24/18 07:32 09/02/18 10:34 Apresoline IV 10 mg Q4HR PRN Administration HTN >155/90 Hydralazine HCl 100 mg 08/28/18 14:00 09/13/18 05:38 Apresoline PO 100 mg Q8HR NASH Administration Insulin Human Isoph/Insulin Regular 15 unit 08/25/18 12:00 09/12/18 19:43 Humulin 70/30 SUB-Q 15 unit BIDDIAB NASH Administration Insulin Human Lispro 0 unit 09/05/18 13:00 09/12/18 21:53 Humalog SUB-Q 8 unit ACHS NASH Administration Protocol Levetiracetam 1,000 mg 08/27/18 10:00 09/12/18 21:54 Keppra PO 1,000 mg BID NASH Administration Lorazepam 1 mg 08/23/18 01:58 Ativan IV Q4H PRN Seizures Olanzapine 2.5 mg 08/24/18 10:00 09/12/18 11:54 Zyprexa PO 2.5 mg DAILY NASH Administration Ondansetron HCl 4 mg 08/22/18 23:50 Zofran IV Q8H PRN Nausea And Vomiting Simple Syrup 15 ml 08/23/18 15:27 Simple Syrup FEEDTUBE PRN PRN Hypoglycemia Simple Syrup 30 ml 08/23/18 15:27 Simple Syrup FEEDTUBE PRN PRN Hypoglycemia Sodium Bicarbonate 325 mg 08/23/18 15:27 Sodium Bicarbonate FEEDTUBE PRN PRN For Clogged Feeding Tube Sodium Chloride 10 ml 08/22/18 23:50 09/12/18 22:04 Sodium Chloride Flush Syringe 10 Ml IV 10 ml BID NASH Administration Sodium Chloride 10 ml 08/23/18 00:12 Sodium Chloride Flush Syringe 10 Ml IV PRN PRN LINE FLUSH
[2018-09-13] MEDS: HumaLOG SUB-Q SCH ×4 (09:56→22:05)
[2018-09-13] MEDS ORDERED: PROCRIT SUB-Q ONE ×2 (10:00→12:00)
[2018-09-13 12:00] LABS: % Iron Saturation 20.86 %
--- NOTE | 2018-09-13 14:16 | Progress Note ---
Assessment and Plan /Sepsis secondary to UTI /ESBL;present on admission Completed total 4 days of Meropenem,per ID , contact isolation ID adv to continue contact isolation upon DC [no isolation room available available at SNF] /Status epilepticus: On admission No new episodes of seizure, Seizure precautions,on keppra 1000mg bid Ativan when necessary, neurology evaluated the patient. /Hypertensive Emergency: Present on admission. Blood pressures uncontrolled this morning Patient is on high doses of multiple antihypertensives Recheck after a meds and adjust as needed /Metabolic encephalopathy; present on admission; resolved /CLINT on CKD 3: Vasomotor nephropathy continue to monitor renal function, avoid nephrotoxins, creatinine level trending down Nephrology following /Hyperkalemia: Resolved. /Moderate to severe malnutrition: Nutrition supplements, dietitian evaluated /Severe debility; PT evaluated, poor rehabilitation potential /-Insulin-dependent diabetes; Accu-Chek sliding scale coverage and ADA diet Long-acting insulin,hemoglobin A1c 8.3 /-History of left AKA: Supportive care /History of endometrial cancer status post hysterectomy,stable /-History of major depression; continue current antidepression medications /-Dyslipidemia; stable on lipid-lowering medicine, low-cholesterol diet /DVT Prophylaxis; Lovenox Patient is medically stable for discharge Disposition ;Pt will return to SNF when isolation room is available Brief History 62-year-old female patient in long term resident was admitted through emergency room with witnessed seizures and status epilepticus. Patient was also noted to have hypertensive emergency requiring Cardene drip, admitted and stabilized in ICU, transferred to medical floor. Patient was placed on antiepileptic medications, seizure precautions, evaluated by neurology Patient had UTI present on admission positive for ESBL, placed on contact isolation, ev aluated by ID, received meropenem for total 4 days, patient's symptoms significantly improved, ID advised to continue contact isolation. Patient did not have any new episodes of seizures, is hemodynamically and clinically stable for discharge. However isolation rooms are not available in the long term. Awaiting to return to long term when isolation room is available CXR: Mild cardiomegaly and pulm vasc congestion Hospitalist Physical General appearance: Present: no acute distress, well-nourished - EENT Eyes: Present: PERRL, EOM intact - Neck Neck: Present: supple, normal ROM - Respiratory Respiratory effort: normal Respiratory: bilateral: diminished, negative: rales, rhonchi, wheezing - Cardiovascular Rhythm: regular Heart Sounds: Present: S1 & S2 - Extremities Extremities: no ischemia, No edema, abnormal (left AKA) - Abdominal General gastrointestinal: soft, non-tender, non-distended, normal bowel sounds - Integumentary Integumentary: Present: clear, warm - Psychiatric Psychiatric: appropriate mood/affect - Neurologic Neurologic: CNII-XII intact, moves all extremities Subjective Date of service: 09/13/18 Principal diagnosis: UTI Interval history: Patient seen and examined. Medical records and medication list reviewed. No acute event overnight noted by the RN. Discharge pending on placement Objective - Constitutional Vitals: Vital Signs - 12hr 09/13/18 09/13/18 09/13/18 05:38 05:40 13:07 Temperature 99.0 F 98.6 F Pulse Rate 59 L 59 L 63 Respiratory 18 20 Rate Blood Pressure 144/68 144/68 162/56 O2 Sat by Pulse 94 97 Oximetry - Labs CBC & Chem 7: 09/13/18 05:25 09/13/18 05:25 Labs: Abnormal lab results 09/12/18 09/12/18 09/13/18 Range/Units 17:19 21:48 05:25 RBC 2.73 L (3.65-5.03) M/mm3 Hgb 7.8 L (10.1-14.3) gm/dl Hct 23.8 L (30.3-42.9) % RDW 16.8 H (13.2-15.2) % [place] % (Auto) 8.7 H (0.0-7.3) % BUN (7-17) mg/dL Creatinine (0.7-1.2) mg/dL Glucose (65-100) mg/dL POC Glucose 288 H 312 H (70-105) TIBC (250-450) mcg/dL Transferrin (192-382) mg/dl 09/13/18 09/13/18 09/13/18 Range/Units 05:25 05:25 08:36 RBC (3.65-5.03) M/mm3 Hgb (10.1-14.3) gm/dl Hct (30.3-42.9) % RDW (13.2-15.2) % [place] % (Auto) (0.0-7.3) % BUN 33 H (7-17) mg/dL Creatinine 1.7 H (0.7-1.2) mg/dL Glucose 106 H (65-100) mg/dL POC Glucose 135 H (70-105) TIBC 187 L (250-450) mcg/dL Transferrin 163 L (192-382) mg/dl
[2018-09-13] MEDS: THALITONE PO SCH (14:25)
[2018-09-13] MEDS: NORVASC PO SCH (14:26)
[2018-09-13] MEDS: PROzac PO SCH ×2 (14:26→14:27)
[2018-09-13] MEDS: SODIUM CHLORIDE FLUSH SYRINGE 10 ML IV SCH ×2 (14:27→22:06)
[2018-09-13] MEDS: COREG PO SCH ×2 (14:31→21:55)
[2018-09-13] MEDS: KEPPRA PO SCH ×2 (14:42→21:56)
[2018-09-13] MEDS: HEPARIN SUB-Q SCH ×2 (14:43→21:56)
[2018-09-13] MEDS: BABY ASPIRIN PO SCH (14:43)
[2018-09-14] MEDS: APRESOLINE PO SCH ×3 (05:52→21:46)
[2018-09-14] MEDS: HumaLOG SUB-Q SCH ×4 (08:54→21:32)
[2018-09-14] MEDS: KEPPRA PO SCH ×2 (09:03→21:35)
[2018-09-14] MEDS: THALITONE PO SCH (09:04)
[2018-09-14] MEDS: PROzac PO SCH (09:04)
[2018-09-14] MEDS: HEPARIN SUB-Q SCH ×2 (09:04→21:35)
[2018-09-14] MEDS: BABY ASPIRIN PO SCH (09:04)
[2018-09-14] MEDS: COREG PO SCH ×2 (09:05→21:45)
[2018-09-14] MEDS: NORVASC PO SCH (09:05)
[2018-09-14] MEDS: SODIUM CHLORIDE FLUSH SYRINGE 10 ML IV SCH ×2 (09:05→21:35)
--- NOTE | 2018-09-14 13:25 | Progress Note ---
Subjective Principal diagnosis: UTI Interval history: Patient was seen today for follow-up on multiple renal related issues Events of this hospitalization were noted Blood pressure has still been accelerated Interdisciplinary notes were also reviewed Vitals intake output medications were reviewed Past medical history: Reviewed Family, social history: Reviewed Allergies: Reviewed Physical examination General: No acute distress Vitals: Reviewed HEENT: Oral mucosa moist no icterus Neck: Supple no thyromegaly nodular mass or JVD Chest: Clear to auscultation anteriorly Heart: Regular rate and rhythm S1-S2 heard no S3-S4 Abdomen: Soft nontender no suprapubic masses no organomegaly Extremity: Dry skin less than 1+ edema Psych: No evidence of any agitation and aggression noted Derm: No petechial rash Assessment and plan: Acute kidney injury, underlying stage III chronic kidney disease baseline creatinine between 1.4-1.7 Patient is stable from renal standpoint creatinine has been around 1.6 last 3-4 days Renal ultrasonogram essentially unremarkable We'll increase chlorthalidone to 25 mg once a day Urinary tract infection with ESBL :treated, ultrasound shows no evidence of hydronephrosis Hyperkalemia: Stable at this time avoid nonsteroidal drugs a centimeters angiotensin receptor georges Hypertension: To monitor and follow, admitted with accelerated hypertension Metabolic acidosis: Appears to be doing better Multiple other comorbidities including seizure disorder endometrial cancer depression bradycardia etc. Admitted with hypertensive emergency was on Cardene drip, Encephalopathy currently improving has had status epilepticus, Prognosis: Guarded We'll continue to follow and make recommendation from renal standpoint Objective - Vital Signs Vital signs: Vital Signs - 12hr 09/14/18 09/14/18 09/14/18 05:50 05:52 11:32 Temperature 98.9 F 98.5 F Pulse Rate 64 63 56 L Respiratory 20 19 Rate Blood Pressure 167/63 167/63 197/76 O2 Sat by Pulse 97 98 Oximetry - Lab 09/13/18 05:25 09/13/18 05:25 Most recent lab results Calcium 8.8 mg/dL (8.4-10.2) 09/13/18 05:25 Phosphorus 3.70 mg/dL (2.5-4.5) 08/23/18 09:05 Magnesium 1.90 mg/dL (1.7-2.3) 08/28/18 13:05 Medications & Allergies - Medications Allergies/Adverse Reactions: Allergies No Known Allergies Allergy (Unverified 06/05/17 13:30) Home Medications: Home Medications Medication Instructions Recorded Confirmed Last Taken Type Aspirin 81 mg PO DAILY 11/14/17 08/22/18 Unknown History Megestrol Acetate 800 mg PO DAILY 11/14/17 08/22/18 Unknown History OLANZapine [Zyprexa] 2.5 mg PO DAILY 11/14/17 08/22/18 Unknown History FLUoxetine [PROzac] 40 mg PO QDAY #30 capsule 11/26/17 08/22/18 Unknown Rx Ferrous Sulfate [Ferrous Sulfate 300 mg PO QDAY #30 oral.liqd 11/26/17 08/22/18 Unknown Rx Oral Liq 300 Mg/5 Ml] Pantoprazole [Protonix TAB] 40 mg PO QDAY #30 tablet 11/26/17 08/22/18 Unknown Rx amLODIPine [Norvasc] 10 mg PO DAILY #30 tablet 11/26/17 08/22/18 Unknown Rx Carvedilol [Coreg] 25 mg PO BID tablet 12/06/17 08/22/18 Unknown Rx cloNIDine [Catapres] 0.1 mg PO Q8H tablet 12/06/17 08/22/18 Unknown Rx traMADol [Ultram 50 MG tab] 50 mg PO Q12HR PRN #20 tablet 12/06/17 08/22/18 Unknown Rx Acetaminophen 325 mg PO Q6H PRN 12/22/17 08/22/18 Unknown History Glucagon HCl 1 mg IM ONCE PRN 12/22/17 08/22/18 Unknown History Klor-Con 10 10 meq PO DAILY 12/22/17 08/22/18 Unknown History Lispro Insulin [HumaLOG] See Protocol SC ACHS 12/22/17 08/22/18 Unknown History Simethicone 80 mg PO Q8H PRN 12/22/17 08/22/18 Unknown History levETIRAcetam [Keppra ORAL LIQ] 750 mg PO BID 30 Days bottle 01/04/18 08/22/18 Unknown Rx Active Medications: Generic Name Dose Route Start Last Admin Trade Name Freq PRN Reason Stop Dose Admin Acetaminophen 650 mg 08/22/18 23:50 09/07/18 20:34 Tylenol PO 650 mg Q4H PRN Administration Pain MILD(1-3)/Fever >100.5/CARTER Amlodipine Besylate 10 mg 08/24/18 10:00 09/14/18 09:05 Norvasc PO 10 mg DAILY NASH Administration Lipase/Protease/Amylase 1 each 08/23/18 15:27 Pancrerosa [place] 10,500 Unit FEEDTUBE PRN PRN For Clogged Feeding Tube Aspirin 81 mg 08/24/18 10:00 09/14/18 09:04 Baby Aspirin PO 81 mg DAILY NASH Administration Carvedilol 25 mg 08/25/18 22:00 09/14/18 09:05 Coreg PO 25 mg BID NASH Administration Clonidine HCl 0.2 mg 09/09/18 22:00 09/10/18 00:36 Catapres-Tts Patch TD 0.2 mg Fr NASH Administration Dextrose 50 ml 08/22/18 23:50 D50w (25gm) Syringe IV PRN PRN Hypoglycemia Fluoxetine HCl 40 mg 08/24/18 10:00 09/14/18 09:04 Prozac PO 40 mg QDAY NASH Administration Heparin Sodium (Porcine) 5,000 unit 08/23/18 10:00 09/14/18 09:04 Heparin SUB-Q 5,000 unit Q12HR NASH Administration Hydralazine HCl 10 mg 08/24/18 07:32 09/02/18 10:34 Apresoline IV 10 mg Q4HR PRN Administration HTN >155/90 Hydralazine HCl 100 mg 08/28/18 14:00 09/14/18 05:52 Apresoline PO 100 mg Q8HR NASH Administration Insulin Human Isoph/Insulin Regular 15 unit 08/25/18 12:00 09/14/18 09:04 Humulin 70/30 SUB-Q 15 unit BIDDIAB NASH Administration Insulin Human Lispro 0 unit 09/05/18 13:00 09/14/18 12:54 Humalog SUB-Q 3 unit ACHS NASH Administration Protocol Levetiracetam 1,000 mg 08/27/18 10:00 09/14/18 09:03 Keppra PO 1,000 mg BID NASH Administration Lorazepam 1 mg 08/23/18 01:58 Ativan IV Q4H PRN Seizures Olanzapine 2.5 mg 08/24/18 10:00 09/14/18 09:04 Zyprexa PO 2.5 mg DAILY NASH Administration Ondansetron HCl 4 mg 07/15/19 23:50 Zofran IV Q8H PRN Nausea And Vomiting Simple Syrup 15 ml 08/23/18 15:27 Simple Syrup FEEDTUBE PRN PRN Hypoglycemia Simple Syrup 30 ml 08/23/18 15:27 Simple Syrup FEEDTUBE PRN PRN Hypoglycemia Sodium Bicarbonate 325 mg 08/23/18 15:27 Sodium Bicarbonate FEEDTUBE PRN PRN For Clogged Feeding Tube Sodium Chloride 10 ml 08/22/18 23:50 09/14/18 09:05 Sodium Chloride Flush Syringe 10 Ml IV 10 ml BID NASH Administration Sodium Chloride 10 ml 08/23/18 00:12 Sodium Chloride Flush Syringe 10 Ml IV PRN PRN LINE FLUSH
[2018-09-14] MEDS ORDERED: THALITONE PO ONE (14:30)
[2018-09-15] MEDS: APRESOLINE PO SCH ×3 (06:32→22:43)
--- NOTE | 2018-09-15 07:18 | Progress Note ---
Assessment and Plan /Sepsis secondary to UTI /ESBL;present on admission Completed total 4 days of Meropenem,per ID , contact isolation ID adv to continue contact isolation upon DC [no isolation room available available at SNF] /Status epilepticus: On admission No new episodes of seizure, Seizure precautions,on keppra 1000mg bid Ativan when necessary, neurology evaluated the patient. /Hypertensive Emergency: Present on admission. Blood pressures uncontrolled this morning Patient is on high doses of multiple antihypertensives Recheck after a meds and adjust as needed /Metabolic encephalopathy; present on admission; resolved /CLINT on CKD 3: Vasomotor nephropathy continue to monitor renal function, avoid nephrotoxins, creatinine level trending down Nephrology following /Hyperkalemia: Resolved. /Moderate to severe malnutrition: Nutrition supplements, dietitian evaluated /Severe debility; PT evaluated, poor rehabilitation potential /-Insulin-dependent diabetes; Accu-Chek sliding scale coverage and ADA diet Long-acting insulin,hemoglobin A1c 8.3 /-History of left AKA: Supportive care /History of endometrial cancer status post hysterectomy,stable /-History of major depression; continue current antidepression medications /-Dyslipidemia; stable on lipid-lowering medicine, low-cholesterol diet /DVT Prophylaxis; Lovenox Patient is medically stable for discharge Disposition ;Pt will return to SNF when isolation room is available Brief History 62-year-old female patient in assisted resident was admitted through emergency room with witnessed seizures and status epilepticus. Patient was also noted to have hypertensive emergency requiring Cardene drip, admitted and stabilized in ICU, transferred to medical floor. Patient was placed on antiepileptic medications, seizure precautions, evaluated by neurology Patient had UTI present on admission positive for ESBL, placed on contact isolation, ev aluated by ID, received meropenem for total 4 days, patient's symptoms significantly improved, ID advised to continue contact isolation. Patient did not have any new episodes of seizures, is hemodynamically and clinically stable for discharge. However isolation rooms are not available in the assisted. Awaiting to return to assisted when isolation room is available CXR: Mild cardiomegaly and pulm vasc congestion Hospitalist Physical General appearance: Present: no acute distress, well-nourished - EENT Eyes: Present: PERRL, EOM intact - Neck Neck: Present: supple, normal ROM - Respiratory Respiratory effort: normal Respiratory: bilateral: diminished, negative: rales, rhonchi, wheezing - Cardiovascular Rhythm: regular Heart Sounds: Present: S1 & S2 - Extremities Extremities: no ischemia, No edema, abnormal (left AKA) - Abdominal General gastrointestinal: soft, non-tender, non-distended, normal bowel sounds - Integumentary Integumentary: Present: clear, warm - Psychiatric Psychiatric: appropriate mood/affect - Neurologic Neurologic: CNII-XII intact, moves all extremities Subjective Date of service: 09/14/18 Principal diagnosis: UTI Interval history: Patient seen and examined. Medical records and medication list reviewed. No acute event overnight noted by the RN. Discharge pending on placement Objective - Constitutional Vitals: Vital Signs - 12hr 09/14/18 09/14/18 09/14/18 21:44 21:45 21:46 Temperature 99.0 F Pulse Rate 59 L 59 L Respiratory 18 Rate Blood Pressure 163/46 163/46 163/46 O2 Sat by Pulse Oximetry 09/14/18 09/15/18 09/15/18 23:47 05:40 06:32 Temperature 98.5 F 98.8 F Pulse Rate 58 L 59 L 59 L Respiratory 18 20 Rate Blood Pressure 146/47 163/58 163/58 O2 Sat by Pulse 99 100 Oximetry - Labs CBC & Chem 7: 09/13/18 05:25 09/13/18 05:25 Labs: Abnormal lab results 09/14/18 09/14/18 09/14/18 Range/Units 07:49 11:18 16:41 POC Glucose 123 H 183 H 151 H (70-105) 09/14/18 Range/Units 21:24 POC Glucose 126 H (70-105)
[2018-09-15] MEDS: KEPPRA PO SCH ×2 (09:33→22:43)
[2018-09-15] MEDS: COREG PO SCH ×2 (09:33→22:44)
[2018-09-15] MEDS: NORVASC PO SCH (09:33)
[2018-09-15] MEDS: PROzac PO SCH (09:33)
[2018-09-15] MEDS: THALITONE PO SCH (09:34)
[2018-09-15] MEDS: BABY ASPIRIN PO SCH (09:34)
[2018-09-15] MEDS: HumaLOG SUB-Q SCH ×4 (09:35→22:40)
[2018-09-15] MEDS: SODIUM CHLORIDE FLUSH SYRINGE 10 ML IV SCH ×2 (09:35→22:45)
--- NOTE | 2018-09-15 09:50 | Progress Note ---
Subjective Principal diagnosis: UTI Interval history: Patient was seen today for follow-up on multiple renal related issues Events of this hospitalization were noted Blood pressure has still been accelerated Interdisciplinary notes were also reviewed Vitals intake output medications were reviewed Past medical history: Reviewed Family, social history: Reviewed Allergies: Reviewed Physical examination General: No acute distress Vitals: Reviewed HEENT: Oral mucosa moist no icterus Neck: Supple no thyromegaly nodular mass or JVD Chest: Clear to auscultation anteriorly Heart: Regular rate and rhythm S1-S2 heard no S3-S4 Abdomen: Soft nontender no suprapubic masses no organomegaly Extremity: Dry skin less than 1+ edema Psych: No evidence of any agitation and aggression noted Derm: No petechial rash Assessment and plan: Acute kidney injury, underlying stage III chronic kidney disease baseline creatinine between 1.4-1.7 Patient will need follow-up labs We'll give her iron infusion as well as erythropoietin For blood pressure continue with the current regimen of medications Urinary tract infection with ESBL :treated, ultrasound shows no evidence of hydronephrosis Hyperkalemia: Stable at this time avoid nonsteroidal drugs a centimeters angiotensin receptor georges Hypertension: To monitor and follow, admitted with accelerated hypertension Metabolic acidosis: Appears to be doing better Multiple other comorbidities including seizure disorder endometrial cancer depression bradycardia etc. Admitted with hypertensive emergency was on Cardene drip, Encephalopathy currently improving has had status epilepticus, Prognosis: Guarded We'll continue to follow and make recommendation from renal standpoint Objective - Vital Signs Vital signs: Vital Signs - 12hr 09/14/18 09/15/18 09/15/18 23:47 05:40 06:32 Temperature 98.5 F 98.8 F Pulse Rate 58 L 59 L 59 L Respiratory 18 20 Rate Blood Pressure 146/47 163/58 163/58 O2 Sat by Pulse 99 100 Oximetry 09/15/18 09:33 Temperature Pulse Rate Respiratory Rate Blood Pressure 159/58 O2 Sat by Pulse Oximetry - Lab 09/13/18 05:25 09/13/18 05:25 Most recent lab results Calcium 8.8 mg/dL (8.4-10.2) 09/13/18 05:25 Phosphorus 3.70 mg/dL (2.5-4.5) 08/23/18 09:05 Magnesium 1.90 mg/dL (1.7-2.3) 08/28/18 13:05 Medications & Allergies - Medications Allergies/Adverse Reactions: Allergies No Known Allergies Allergy (Unverified 06/05/17 13:30) Home Medications: Home Medications Medication Instructions Recorded Confirmed Last Taken Type Aspirin 81 mg PO DAILY 11/14/17 08/22/18 Unknown History Megestrol Acetate 800 mg PO DAILY 11/14/17 08/22/18 Unknown History OLANZapine [Zyprexa] 2.5 mg PO DAILY 11/14/17 08/22/18 Unknown History FLUoxetine [PROzac] 40 mg PO QDAY #30 capsule 11/26/17 08/22/18 Unknown Rx Ferrous Sulfate [Ferrous Sulfate 300 mg PO QDAY #30 oral.liqd 11/26/17 08/22/18 Unknown Rx Oral Liq 300 Mg/5 Ml] Pantoprazole [Protonix TAB] 40 mg PO QDAY #30 tablet 11/26/17 08/22/18 Unknown Rx amLODIPine [Norvasc] 10 mg PO DAILY #30 tablet 11/26/17 08/22/18 Unknown Rx Carvedilol [Coreg] 25 mg PO BID tablet 12/06/17 08/22/18 Unknown Rx cloNIDine [Catapres] 0.1 mg PO Q8H tablet 12/06/17 08/22/18 Unknown Rx traMADol [Ultram 50 MG tab] 50 mg PO Q12HR PRN #20 tablet 12/06/17 08/22/18 Unknown Rx Acetaminophen 325 mg PO Q6H PRN 12/22/17 08/22/18 Unknown History Glucagon HCl 1 mg IM ONCE PRN 12/22/17 08/22/18 Unknown History Klor-Con 10 10 meq PO DAILY 12/22/17 08/22/18 Unknown History Lispro Insulin [HumaLOG] See Protocol SC ACHS 12/22/17 08/22/18 Unknown History Simethicone 80 mg PO Q8H PRN 12/22/17 08/22/18 Unknown History levETIRAcetam [Keppra ORAL LIQ] 750 mg PO BID 30 Days bottle 01/04/18 08/22/18 Unknown Rx Active Medications: Generic Name Dose Route Start Last Admin Trade Name Freq PRN Reason Stop Dose Admin Acetaminophen 650 mg 08/22/18 23:50 09/07/18 20:34 Tylenol PO 650 mg Q4H PRN Administration Pain MILD(1-3)/Fever >100.5/CARTER Amlodipine Besylate 10 mg 08/24/18 10:00 09/15/18 09:33 Norvasc PO 10 mg DAILY NASH Administration Lipase/Protease/Amylase 1 each 08/23/18 15:27 Pancrerosa Billingsley 10,500 Unit FEEDTUBE PRN PRN For Clogged Feeding Tube Aspirin 81 mg 08/24/18 10:00 09/15/18 09:34 Baby Aspirin PO 81 mg DAILY NASH Administration Carvedilol 25 mg 08/25/18 22:00 09/15/18 09:33 Coreg PO 25 mg BID NASH Administration Chlorthalidone 25 mg 09/15/18 10:00 09/15/18 09:34 Thalitone PO 25 mg QDAY NASH Administration Clonidine HCl 0.2 mg 09/09/18 22:00 09/10/18 00:36 Catapres-Tts Patch TD 0.2 mg Fr NASH Administration Dextrose 50 ml 08/22/18 23:50 D50w (25gm) Syringe IV PRN PRN Hypoglycemia Fluoxetine HCl 40 mg 08/24/18 10:00 09/15/18 09:33 Prozac PO 40 mg QDAY NASH Administration Heparin Sodium (Porcine) 5,000 unit 08/23/18 10:00 09/14/18 21:35 Heparin SUB-Q 5,000 unit Q12HR NASH Administration Hydralazine HCl 10 mg 08/24/18 07:32 09/02/18 10:34 Apresoline IV 10 mg Q4HR PRN Administration HTN >155/90 Hydralazine HCl 100 mg 08/28/18 14:00 09/15/18 06:32 Apresoline PO 100 mg Q8HR NASH Administration Insulin Human Isoph/Insulin Regular 15 unit 08/25/18 12:00 09/15/18 09:34 Humulin 70/30 SUB-Q 15 unit BIDDIAB NASH Administration Insulin Human Lispro 0 unit 09/05/18 13:00 09/15/18 09:35 Humalog SUB-Q 3 unit ACHS NASH Administration Protocol Levetiracetam 1,000 mg 08/27/18 10:00 09/15/18 09:33 Keppra PO 1,000 mg BID NASH Administration Lorazepam 1 mg 08/23/18 01:58 09/14/18 21:38 Ativan IV 1 mg Q4H PRN Administration Seizures Olanzapine 2.5 mg 08/24/18 10:00 09/14/18 09:04 Zyprexa PO 2.5 mg DAILY NASH Administration Ondansetron HCl 4 mg 08/22/18 23:50 Zofran IV Q8H PRN Nausea And Vomiting Simple Syrup 15 ml 08/23/18 15:27 Simple Syrup FEEDTUBE PRN PRN Hypoglycemia Simple Syrup 30 ml 08/23/18 15:27 Simple Syrup FEEDTUBE PRN PRN Hypoglycemia Sodium Bicarbonate 325 mg 08/23/18 15:27 Sodium Bicarbonate FEEDTUBE PRN PRN For Clogged Feeding Tube Sodium Chloride 10 ml 08/22/18 23:50 09/15/18 09:35 Sodium Chloride Flush Syringe 10 Ml IV 10 ml BID NASH Administration Sodium Chloride 10 ml 08/23/18 00:12 Sodium Chloride Flush Syringe 10 Ml IV PRN PRN LINE FLUSH
[2018-09-15] MEDS ORDERED: FERRLECIT 250 MG in NACL 0.9% 100 ML IV ONE (09:51)
[2018-09-15] MEDS ORDERED: PROCRIT SUB-Q ONE ×2 (10:00→15:00)
[2018-09-15] MEDS: HEPARIN SUB-Q SCH ×2 (10:18→22:44)
[2018-09-15 11:14] LABS: Hematocrit 25.8 % (30.3-42.9); Hemoglobin 8.3 gm/dl (10.1-14.3); Mean Corpuscular HGB Conc 32 % (30-34); Mean Corpuscular Volume 88 fl (79-97); Platelet Count 244 K/mm3 (140-440); Red Blood Count 2.92 M/mm3 (3.65-5.03); Red Cell Distribution Width 17.1 % (13.2-15.2)
--- NOTE | 2018-09-15 11:27 | Progress Note ---
Assessment and Plan /Sepsis secondary to UTI /ESBL;present on admission Completed total 4 days of Meropenem,per ID , contact isolation ID adv to continue contact isolation upon DC [no isolation room available available at SNF] /Status epilepticus: On admission No new episodes of seizure, Seizure precautions,on keppra 1000mg bid Ativan when necessary, neurology evaluated the patient. /Hypertensive Emergency: Present on admission. Blood pressures uncontrolled this morning Patient is on high doses of multiple antihypertensives Recheck after a meds and adjust as needed /Metabolic encephalopathy; present on admission; resolved /CLINT on CKD 3: Vasomotor nephropathy continue to monitor renal function, avoid nephrotoxins, creatinine level trending down Nephrology following /Hyperkalemia: Resolved. /Moderate to severe malnutrition: Nutrition supplements, dietitian evaluated /Severe debility; PT evaluated, poor rehabilitation potential /-Insulin-dependent diabetes; Accu-Chek sliding scale coverage and ADA diet Long-acting insulin,hemoglobin A1c 8.3 /-History of left AKA: Supportive care /History of endometrial cancer status post hysterectomy,stable /-History of major depression; continue current antidepression medications /-Dyslipidemia; stable on lipid-lowering medicine, low-cholesterol diet /DVT Prophylaxis; Lovenox Patient is medically stable for discharge Disposition ;Pt will return to SNF when isolation room is available Brief History 62-year-old female patient in [facility] resident was admitted through emergency room with witnessed seizures and status epilepticus. Patient was also noted to have hypertensive emergency requiring Cardene drip, admitted and stabilized in ICU, transferred to medical floor. Patient was placed on antiepileptic medications, seizure precautions, evaluated by neurology Patient had UTI present on admission positive for ESBL, placed on contact isolation, ev aluated by ID, received meropenem for total 4 days, patient's symptoms significantly improved, ID advised to continue contact isolation. Patient did not have any new episodes of seizures, is hemodynamically and clinically stable for discharge. However isolation rooms are not available in the [facility]. Awaiting to return to [facility] when isolation room is available CXR: Mild cardiomegaly and pulm vasc congestion Hospitalist Physical General appearance: Present: no acute distress, well-nourished - EENT Eyes: Present: PERRL, EOM intact - Neck Neck: Present: supple, normal ROM - Respiratory Respiratory effort: normal Respiratory: bilateral: diminished, negative: rales, rhonchi, wheezing - Cardiovascular Rhythm: regular Heart Sounds: Present: S1 & S2 - Extremities Extremities: no ischemia, No edema, abnormal (left AKA) - Abdominal General gastrointestinal: soft, non-tender, non-distended, normal bowel sounds - Integumentary Integumentary: Present: clear, warm - Psychiatric Psychiatric: appropriate mood/affect - Neurologic Neurologic: CNII-XII intact, moves all extremities Subjective Date of service: 09/15/18 Principal diagnosis: UTI Interval history: Patient seen and examined. Medical records and medication list reviewed. No acute event overnight noted by the RN. Discharge pending on placement Objective - Constitutional Vitals: Vital Signs - 12hr 09/14/18 09/15/18 09/15/18 23:47 05:40 06:32 Temperature 98.5 F 98.8 F Pulse Rate 58 L 59 L 59 L Respiratory 18 20 Rate Blood Pressure 146/47 163/58 163/58 O2 Sat by Pulse 99 100 Oximetry 09/15/18 09:33 Temperature Pulse Rate Respiratory Rate Blood Pressure 159/58 O2 Sat by Pulse Oximetry - Labs CBC & Chem 7: 09/15/18 10:50 09/13/18 05:25 Labs: Abnormal lab results 09/14/18 09/14/18 09/15/18 Range/Units 16:41 21:24 08:12 RBC (3.65-5.03) M/mm3 Hgb (10.1-14.3) gm/dl Hct (30.3-42.9) % RDW (13.2-15.2) % POC Glucose 151 H 126 H 165 H (70-105) 09/15/18 Range/Units 10:50 RBC 2.92 L (3.65-5.03) M/mm3 Hgb 8.3 L (10.1-14.3) gm/dl Hct 25.8 L (30.3-42.9) % RDW 17.1 H (13.2-15.2) % POC Glucose (70-105)
[2018-09-15 11:47] LABS: Calcium 8.9 mg/dL (8.4-10.2); Uric Acid 7.3 mg/dL (3.5-7.6)
[2018-09-16] MEDS: APRESOLINE PO SCH ×3 (06:42→22:23)
[2018-09-16] MEDS: THALITONE PO SCH (09:49)
[2018-09-16] MEDS: HEPARIN SUB-Q SCH ×2 (09:49→22:26)
[2018-09-16] MEDS: KEPPRA PO SCH ×2 (09:49→22:24)
[2018-09-16] MEDS: PROzac PO SCH (09:49)
[2018-09-16] MEDS: HumaLOG SUB-Q SCH ×4 (09:50→22:25)
[2018-09-16] MEDS: NORVASC PO SCH (09:50)
[2018-09-16] MEDS: BABY ASPIRIN PO SCH (09:50)
[2018-09-16] MEDS: COREG PO SCH ×2 (09:50→22:24)
[2018-09-16] MEDS: SODIUM CHLORIDE FLUSH SYRINGE 10 ML IV SCH ×2 (09:51→22:25)
--- NOTE | 2018-09-16 11:45 | Progress Note ---
Assessment and Plan /Sepsis secondary to UTI /ESBL;present on admission Completed total 4 days of Meropenem,per ID , contact isolation ID adv to continue contact isolation upon DC [no isolation room available available at SNF] /Status epilepticus: On admission No new episodes of seizure, Seizure precautions,on keppra 1000mg bid Ativan when necessary, neurology evaluated the patient. /Hypertensive Emergency: Present on admission. Blood pressures uncontrolled this morning Patient is on high doses of multiple antihypertensives Recheck after a meds and adjust as needed /Metabolic encephalopathy; present on admission; resolved /CLINT on CKD 3: Vasomotor nephropathy continue to monitor renal function, avoid nephrotoxins, creatinine level trending down Nephrology following /Hyperkalemia: Resolved. /Moderate to severe malnutrition: Nutrition supplements, dietitian evaluated /Severe debility; PT evaluated, poor rehabilitation potential /-Insulin-dependent diabetes; Accu-Chek sliding scale coverage and ADA diet Long-acting insulin,hemoglobin A1c 8.3 /-History of left AKA: Supportive care /History of endometrial cancer status post hysterectomy,stable /-History of major depression; continue current antidepression medications /-Dyslipidemia; stable on lipid-lowering medicine, low-cholesterol diet /DVT Prophylaxis; Lovenox Patient is medically stable for discharge Disposition ;Pt will return to SNF when isolation room is available Brief History 62-year-old female patient in [facility] resident was admitted through emergency room with witnessed seizures and status epilepticus. Patient was also noted to have hypertensive emergency requiring Cardene drip, admitted and stabilized in ICU, transferred to medical floor. Patient was placed on antiepileptic medications, seizure precautions, evaluated by neurology Patient had UTI present on admission positive for ESBL, placed on contact isolation, ev aluated by ID, received meropenem for total 4 days, patient's symptoms significantly improved, ID advised to continue contact isolation. Patient did not have any new episodes of seizures, is hemodynamically and clinically stable for discharge. However isolation rooms are not available in the [facility]. Awaiting to return to [facility] when isolation room is available CXR: Mild cardiomegaly and pulm vasc congestion Hospitalist Physical General appearance: Present: no acute distress, well-nourished - EENT Eyes: Present: PERRL, EOM intact - Neck Neck: Present: supple, normal ROM - Respiratory Respiratory effort: normal Respiratory: bilateral: diminished, negative: rales, rhonchi, wheezing - Cardiovascular Rhythm: regular Heart Sounds: Present: S1 & S2 - Extremities Extremities: no ischemia, No edema, abnormal (left AKA) - Abdominal General gastrointestinal: soft, non-tender, non-distended, normal bowel sounds - Integumentary Integumentary: Present: clear, warm - Psychiatric Psychiatric: appropriate mood/affect - Neurologic Neurologic: CNII-XII intact, moves all extremities Subjective Date of service: 09/16/18 Principal diagnosis: UTI Interval history: Patient seen and examined. Medical records and medication list reviewed. No acute event overnight noted by the RN. Discharge pending on placement Objective - Constitutional Vitals: Vital Signs - 12hr 09/16/18 09/16/18 04:48 06:42 Temperature 98.4 F Pulse Rate 63 Respiratory 20 Rate Blood Pressure 167/51 152/54 O2 Sat by Pulse 100 Oximetry - Labs CBC & Chem 7: 09/15/18 10:50 09/15/18 10:50 Labs: Abnormal lab results 09/15/18 09/15/18 09/15/18 Range/Units 10:50 11:33 17:22 BUN 39 H (7-17) mg/dL Creatinine 1.9 H (0.7-1.2) mg/dL Glucose 257 H (65-100) mg/dL POC Glucose 243 H 182 H (70-105) 09/15/18 09/16/18 09/16/18 Range/Units 21:11 07: 11:29 BUN (7-17) mg/dL Creatinine (0.7-1.2) mg/dL Glucose (65-100) mg/dL POC Glucose 155 H 226 H 199 H (70-105)
--- NOTE | 2018-09-16 11:49 | Progress Note ---
Subjective Principal diagnosis: UTI Interval history: Patient was seen today for follow-up on multiple renal related issues Events of this hospitalization were noted Blood pressure has still been accelerated Interdisciplinary notes were also reviewed Vitals intake output medications were reviewed Past medical history: Reviewed Family, social history: Reviewed Allergies: Reviewed Physical examination General: No acute distress Vitals: Reviewed HEENT: Oral mucosa moist no icterus Neck: Supple no thyromegaly nodular mass or JVD Chest: Clear to auscultation anteriorly Heart: Regular rate and rhythm S1-S2 heard no S3-S4 Abdomen: Soft nontender no suprapubic masses no organomegaly Extremity: Dry skin less than 1+ edema Psych: No evidence of any agitation and aggression noted Derm: No petechial rash Assessment and plan: Acute kidney injury, underlying stage III chronic kidney disease baseline creatinine between 1.4-1.7 current creatinine is around 1.9 she will periodically need iron as well as erythropoietin For blood pressure continue with the current regimen of medications Urinary tract infection with ESBL :treated, ultrasound shows no evidence of hydronephrosis Hyperkalemia: Stable at this time avoid nonsteroidal drugs a centimeters angiotensin receptor georges Hypertension: To monitor and follow, admitted with accelerated hypertension Metabolic acidosis: Appears to be doing better Multiple other comorbidities including seizure disorder endometrial cancer depression bradycardia etc. Admitted with hypertensive emergency was on Cardene drip, Encephalopathy currently improving has had status epilepticus, Prognosis: Guarded We'll continue to follow and make recommendation from renal standpoint Objective - Vital Signs Vital signs: Vital Signs - 12hr 09/16/18 09/16/18 04:48 06:42 Temperature 98.4 F Pulse Rate 63 Respiratory 20 Rate Blood Pressure 167/51 152/54 O2 Sat by Pulse 100 Oximetry - Lab 09/15/18 10:50 09/15/18 10:50 Most recent lab results Calcium 8.9 mg/dL (8.4-10.2) 09/15/18 10:50 Phosphorus 3.70 mg/dL (2.5-4.5) 08/23/18 09:05 Magnesium 1.90 mg/dL (1.7-2.3) 08/28/18 13:05 Medications & Allergies - Medications Allergies/Adverse Reactions: Allergies No Known Allergies Allergy (Unverified 06/05/17 13:30) Home Medications: Home Medications Medication Instructions Recorded Confirmed Last Taken Type Aspirin 81 mg PO DAILY 11/14/17 08/22/18 Unknown History Megestrol Acetate 800 mg PO DAILY 11/14/17 08/22/18 Unknown History OLANZapine [Zyprexa] 2.5 mg PO DAILY 11/14/17 08/22/18 Unknown History FLUoxetine [PROzac] 40 mg PO QDAY #30 capsule 11/26/17 08/22/18 Unknown Rx Ferrous Sulfate [Ferrous Sulfate 300 mg PO QDAY #30 oral.liqd 11/26/17 08/22/18 Unknown Rx Oral Liq 300 Mg/5 Ml] Pantoprazole [Protonix TAB] 40 mg PO QDAY #30 tablet 11/26/17 08/22/18 Unknown Rx amLODIPine [Norvasc] 10 mg PO DAILY #30 tablet 11/26/17 08/22/18 Unknown Rx Carvedilol [Coreg] 25 mg PO BID tablet 12/06/17 08/22/18 Unknown Rx cloNIDine [Catapres] 0.1 mg PO Q8H tablet 12/06/17 08/22/18 Unknown Rx traMADol [Ultram 50 MG tab] 50 mg PO Q12HR PRN #20 tablet 12/06/17 08/22/18 Unknown Rx Acetaminophen 325 mg PO Q6H PRN 12/22/17 08/22/18 Unknown History Glucagon HCl 1 mg IM ONCE PRN 12/22/17 08/22/18 Unknown History Klor-Con 10 10 meq PO DAILY 12/22/17 08/22/18 Unknown History Lispro Insulin [HumaLOG] See Protocol SC ACHS 12/22/17 08/22/18 Unknown History Simethicone 80 mg PO Q8H PRN 12/22/17 08/22/18 Unknown History levETIRAcetam [Keppra ORAL LIQ] 750 mg PO BID 30 Days bottle 01/04/18 08/22/18 Unknown Rx Active Medications: Generic Name Dose Route Start Last Admin Trade Name Freq PRN Reason Stop Dose Admin Acetaminophen 650 mg 08/22/18 23:50 09/07/18 20:34 Tylenol PO 650 mg Q4H PRN Administration Pain MILD(1-3)/Fever >100.5/CARTER Amlodipine Besylate 10 mg 08/24/18 10:00 09/16/18 09:50 Norvasc PO 10 mg DAILY NASH Administration Lipase/Protease/Amylase 1 each 08/23/18 15:27 Pancrerosa Billingsley 10,500 Unit FEEDTUBE PRN PRN For Clogged Feeding Tube Aspirin 81 mg 08/24/18 10:00 09/16/18 09:50 Baby Aspirin PO 81 mg DAILY NASH Administration Carvedilol 25 mg 08/25/18 22:00 09/16/18 09:50 Coreg PO 25 mg BID NASH Administration Chlorthalidone 25 mg 09/15/18 10:00 09/16/18 09:49 Thalitone PO 25 mg QDAY NASH Administration Clonidine HCl 0.2 mg 09/09/18 22:00 09/10/18 00:36 Catapres-Tts Patch TD 0.2 mg Fr NASH Administration Dextrose 50 ml 08/22/18 23:50 D50w (25gm) Syringe IV PRN PRN Hypoglycemia Fluoxetine HCl 40 mg 08/24/18 10:00 09/16/18 09:49 Prozac PO 40 mg QDAY NASH Administration Heparin Sodium (Porcine) 5,000 unit 08/23/18 10:00 09/16/18 09:49 Heparin SUB-Q 5,000 unit Q12HR NASH Administration Hydralazine HCl 10 mg 08/24/18 07:32 09/02/18 10:34 Apresoline IV 10 mg Q4HR PRN Administration HTN >155/90 Hydralazine HCl 100 mg 08/28/18 14:00 09/16/18 06:42 Apresoline PO 100 mg Q8HR NASH Administration Insulin Human Isoph/Insulin Regular 15 unit 08/25/18 12:00 09/16/18 09:50 Humulin 70/30 SUB-Q 15 unit BIDDIAB NASH Administration Insulin Human Lispro 0 unit 09/05/18 13:00 09/16/18 09:50 Humalog SUB-Q 4 unit ACHS NASH Administration Protocol Levetiracetam 1,000 mg 08/27/18 10:00 09/16/18 09:49 Keppra PO 1,000 mg BID NASH Administration Lorazepam 1 mg 08/23/18 01:58 09/14/18 21:38 Ativan IV 1 mg Q4H PRN Administration Seizures Olanzapine 2.5 mg 08/24/18 10:00 09/16/18 09:50 Zyprexa PO 2.5 mg DAILY NASH Administration Ondansetron HCl 4 mg 08/22/18 23:50 Zofran IV Q8H PRN Nausea And Vomiting Simple Syrup 15 ml 08/23/18 15:27 Simple Syrup FEEDTUBE PRN PRN Hypoglycemia Simple Syrup 30 ml 08/23/18 15:27 Simple Syrup FEEDTUBE PRN PRN Hypoglycemia Sodium Bicarbonate 325 mg 08/23/18 15:27 Sodium Bicarbonate FEEDTUBE PRN PRN For Clogged Feeding Tube Sodium Chloride 10 ml 08/22/18 23:50 09/16/18 09:51 Sodium Chloride Flush Syringe 10 Ml IV 10 ml BID NASH Administration Sodium Chloride 10 ml 08/23/18 00:12 Sodium Chloride Flush Syringe 10 Ml IV PRN PRN LINE FLUSH
[2018-09-16] MEDS: CATAPRES-TTS PATCH TD SCH (22:22)
[2018-09-17] MEDS: APRESOLINE IV PRN ×2 (01:39→17:09)
[2018-09-17] MEDS: APRESOLINE PO SCH ×3 (06:06→21:48)
[2018-09-17] MEDS: HumaLOG SUB-Q SCH ×4 (07:30→21:46)
--- NOTE | 2018-09-17 11:13 | Progress Note ---
Assessment and Plan /Sepsis secondary to UTI /ESBL;present on admission Completed total 4 days of Meropenem,per ID , contact isolation ID adv to continue contact isolation upon DC [no isolation room available available at SNF] /Status epilepticus: On admission No new episodes of seizure, Seizure precautions,on keppra 1000mg bid Ativan when necessary, neurology evaluated the patient. /Hypertensive Emergency: Present on admission. Blood pressures remained uncontrolled Patient is on high doses of multiple antihypertensives cont to monitor closely, increase hydralazine dose /Metabolic encephalopathy; present on admission; resolved /CLINT on CKD 3: Vasomotor nephropathy continue to monitor renal function, avoid nephrotoxins, creatinine level trending down Nephrology following /Hyperkalemia: Resolved. /Moderate to severe malnutrition: Nutrition supplements, dietitian evaluated /Severe debility; PT evaluated, poor rehabilitation potential /-Insulin-dependent diabetes; Accu-Chek sliding scale coverage and ADA diet Long-acting insulin,hemoglobin A1c 8.3 /-History of left AKA: Supportive care /History of endometrial cancer status post hysterectomy,stable /-History of major depression; continue current antidepression medications /-Dyslipidemia; stable on lipid-lowering medicine, low-cholesterol diet /DVT Prophylaxis; Lovenox Patient is medically stable for discharge Disposition ;Pt will return to SNF when isolation room is available Brief History 62-year-old female patient in [facility] resident was admitted through emergency room with witnessed seizures and status epilepticus. Patient was also noted to have hypertensive emergency requiring Cardene drip, admitted and stabilized in ICU, transferred to medical floor. Patient was placed on antiepileptic medications, seizure precautions, evaluated by neurology Patient had UTI present on admission positive for ESBL, placed on contact isolation, evaluated by ID, received meropenem for total 4 days, patient's symptoms significantly improved, ID advised to continue contact isolation. Patient did not have any new episodes of seizures, is hemodynamically and clinically stable for discharge. However isolation rooms are not available in the [facility]. Awaiting to return to [facility] when isolation room is available CXR: Mild cardiomegaly and pulm vasc congestion Hospitalist Physical General appearance: Present: no acute distress, well-nourished - EENT Eyes: Present: PERRL, EOM intact - Neck Neck: Present: supple, normal ROM - Respiratory Respiratory effort: normal Respiratory: bilateral: diminished, negative: rales, rhonchi, wheezing - Cardiovascular Rhythm: regular Heart Sounds: Present: S1 & S2 - Extremities Extremities: no ischemia, No edema, abnormal (left AKA) - Abdominal General gastrointestinal: soft, non-tender, non-distended, normal bowel sounds - Integumentary Integumentary: Present: clear, warm - Psychiatric Psychiatric: appropriate mood/affect - Neurologic Neurologic: CNII-XII intact, moves all extremities Subjective Date of service: 09/17/18 Principal diagnosis: UTI Interval history: Patient seen and examined. Medical records and medication list reviewed. No acute event overnight noted by the RN. Discharge pending on placement Objective - Constitutional Vitals: Vital Signs - 12hr 09/17/18 09/17/18 09/17/18 00:59 01:39 04:47 Temperature 98.5 F Pulse Rate 63 63 71 Respiratory 24 20 Rate Blood Pressure 178/54 178/54 150/129 O2 Sat by Pulse 99 98 Oximetry 09/17/18 09/17/18 04:49 06:06 Temperature 98.5 F Pulse Rate 71 Respiratory 20 Rate Blood Pressure 172/71 172/71 O2 Sat by Pulse Oximetry - Labs CBC & Chem 7: 09/15/18 10:50 09/15/18 10:50 Labs: Abnormal lab results 09/16/18 09/16/18 09/16/18 Range/Units 11:29 16:23 21:54 POC Glucose 199 H 206 H 109 H (70-105) 09/17/18 Range/Units 09:04 POC Glucose 192 H (70-105)
--- NOTE | 2018-09-17 11:20 | Progress Note ---
Subjective Principal diagnosis: UTI Interval history: Patient was seen today for follow-up on multiple renal related issues off-and-on blood pressure is difficult to control Vitals intake output medications were reviewed Past medical history: Reviewed Family, social history: Reviewed Allergies: Reviewed Physical examination General: No acute distress Vitals: Reviewed HEENT: Oral mucosa moist no icterus Neck: Supple no thyromegaly nodular mass or JVD Chest: Clear to auscultation anteriorly Heart: Regular rate and rhythm S1-S2 heard no S3-S4 Abdomen: Soft nontender no suprapubic masses no organomegaly Extremity: Dry skin less than 1+ edema Psych: No evidence of any agitation and aggression noted Derm: No petechial rash Assessment and plan: acute kidney injury: Has stabilized Patient however is at risk for progression due to uncontrolled hypertension Continue to titrate blood pressure medication for now patient may require minoxidil Acute kidney injury, underlying stage III chronic kidney disease baseline creatinine between 1.4-1.7 Patient is stable from renal standpoint creatinine has been around 1.6 last 3-4 days Urinary tract infection with ESBL :treated, ultrasound shows no evidence of hydronephrosis Hyperkalemia: Stable at this time avoid nonsteroidal drugs a centimeters angiotensin receptor georges Hypertension: To monitor and follow, admitted with accelerated hypertension Metabolic acidosis: Appears to be doing better Multiple other comorbidities including seizure disorder endometrial cancer depression bradycardia etc. Admitted with hypertensive emergency was on Cardene drip, Encephalopathy currently improving has had status epilepticus, Prognosis: Guarded We'll continue to follow and make recommendation from renal standpoint Objective - Vital Signs Vital signs: Vital Signs - 12hr 09/17/18 09/17/18 09/17/18 00:59 01:39 04:47 Temperature 98.5 F Pulse Rate 63 63 71 Respiratory 24 20 Rate Blood Pressure 178/54 178/54 150/129 O2 Sat by Pulse 99 98 Oximetry 09/17/18 09/17/18 04:49 06:06 Temperature 98.5 F Pulse Rate 71 Respiratory 20 Rate Blood Pressure 172/71 172/71 O2 Sat by Pulse Oximetry - Lab 09/15/18 10:50 09/17/18 Unknown Most recent lab results Calcium 8.9 mg/dL (8.4-10.2) 09/15/18 10:50 Phosphorus 3.70 mg/dL (2.5-4.5) 08/23/18 09:05 Magnesium 1.90 mg/dL (1.7-2.3) 08/28/18 13:05 Medications & Allergies - Medications Allergies/Adverse Reactions: Allergies No Known Allergies Allergy (Unverified 06/05/17 13:30) Home Medications: Home Medications Medication Instructions Recorded Confirmed Last Taken Type Aspirin 81 mg PO DAILY 11/14/17 08/22/18 Unknown History Megestrol Acetate 800 mg PO DAILY 11/14/17 08/22/18 Unknown History OLANZapine [Zyprexa] 2.5 mg PO DAILY 11/14/17 08/22/18 Unknown History FLUoxetine [PROzac] 40 mg PO QDAY #30 capsule 11/26/17 08/22/18 Unknown Rx Ferrous Sulfate [Ferrous Sulfate 300 mg PO QDAY #30 oral.liqd 11/26/17 08/22/18 Unknown Rx Oral Liq 300 Mg/5 Ml] Pantoprazole [Protonix TAB] 40 mg PO QDAY #30 tablet 11/26/17 08/22/18 Unknown Rx amLODIPine [Norvasc] 10 mg PO DAILY #30 tablet 11/26/17 08/22/18 Unknown Rx Carvedilol [Coreg] 25 mg PO BID tablet 12/06/17 08/22/18 Unknown Rx cloNIDine [Catapres] 0.1 mg PO Q8H tablet 12/06/17 08/22/18 Unknown Rx traMADol [Ultram 50 MG tab] 50 mg PO Q12HR PRN #20 tablet 12/06/17 08/22/18 Unknown Rx Acetaminophen 325 mg PO Q6H PRN 12/22/17 08/22/18 Unknown History Glucagon HCl 1 mg IM ONCE PRN 12/22/17 08/22/18 Unknown History Klor-Con 10 10 meq PO DAILY 12/22/17 08/22/18 Unknown History Lispro Insulin [HumaLOG] See Protocol SC ACHS 12/22/17 08/22/18 Unknown History Simethicone 80 mg PO Q8H PRN 12/22/17 08/22/18 Unknown History levETIRAcetam [Keppra ORAL LIQ] 750 mg PO BID 30 Days bottle 01/04/18 08/22/18 Unknown Rx Active Medications: Generic Name Dose Route Start Last Admin Trade Name Freq PRN Reason Stop Dose Admin Acetaminophen 650 mg 08/22/18 23:50 09/07/18 20:34 Tylenol PO 650 mg Q4H PRN Administration Pain MILD(1-3)/Fever >100.5/CARTER Amlodipine Besylate 10 mg 08/24/18 10:00 09/16/18 09:50 Norvasc PO 10 mg DAILY NASH Administration Lipase/Protease/Amylase 1 each 08/23/18 15:[address] 10,500 Unit FEEDTUBE PRN PRN For Clogged Feeding Tube Aspirin 81 mg 08/24/18 10:00 09/16/18 09:50 Baby Aspirin PO 81 mg DAILY NASH Administration Carvedilol 25 mg 08/25/18 22:00 09/16/18 22:24 Coreg PO 25 mg BID NASH Administration Chlorthalidone 25 mg 09/15/18 10:00 09/16/18 09:49 Thalitone PO 25 mg QDAY NASH Administration Clonidine HCl 0.2 mg 09/09/18 22:00 09/16/18 22:22 Catapres-Tts Patch TD 0.2 mg Fr NASH Administration Dextrose 50 ml 08/22/18 23:50 D50w (25gm) Syringe IV PRN PRN Hypoglycemia Fluoxetine HCl 40 mg 08/24/18 10:00 09/16/18 09:49 Prozac PO 40 mg QDAY NASH Administration Heparin Sodium (Porcine) 5,000 unit 08/23/18 10:00 09/16/18 22:26 Heparin SUB-Q 5,000 unit Q12HR NASH Administration Hydralazine HCl 10 mg 08/24/18 07:32 09/17/18 01:39 Apresoline IV 10 mg Q4HR PRN Administration HTN >155/90 Hydralazine HCl 150 mg 09/17/18 11:13 Apresoline PO Q8HR NASH Insulin Human Isoph/Insulin Regular 15 unit 08/25/18 12:00 09/17/18 08:00 Humulin 70/30 SUB-Q 15 unit BIDDIAB NASH Administration Insulin Human Lispro 0 unit 09/05/18 13:00 09/17/18 07:30 Humalog SUB-Q 3 unit ACHS NASH Administration Protocol Levetiracetam 1,000 mg 08/27/18 10:00 09/16/18 22:24 Keppra PO 1,000 mg BID NASH Administration Lorazepam 1 mg 08/23/18 01:58 09/14/18 21:38 Ativan IV 1 mg Q4H PRN Administration Seizures Olanzapine 2.5 mg 08/24/18 10:00 09/16/18 09:50 Zyprexa PO 2.5 mg DAILY NASH Administration Ondansetron HCl 4 mg 08/22/18 23:50 Zofran IV Q8H PRN Nausea And Vomiting Simple Syrup 15 ml 08/23/18 15:27 Simple Syrup FEEDTUBE PRN PRN Hypoglycemia Simple Syrup 30 ml 08/23/18 15:27 Simple Syrup FEEDTUBE PRN PRN Hypoglycemia Sodium Bicarbonate 325 mg 08/23/18 15:27 Sodium Bicarbonate FEEDTUBE PRN PRN For Clogged Feeding Tube Sodium Chloride 10 ml 08/22/18 23:50 09/16/18 22:25 Sodium Chloride Flush Syringe 10 Ml IV 10 ml BID NASH Administration Sodium Chloride 10 ml 08/23/18 00:12 Sodium Chloride Flush Syringe 10 Ml IV PRN PRN LINE FLUSH
[2018-09-17] MEDS: KEPPRA PO SCH ×2 (11:31→21:47)
[2018-09-17] MEDS: COREG PO SCH ×2 (11:32→21:47)
[2018-09-17] MEDS: HEPARIN SUB-Q SCH ×2 (11:32→21:48)
[2018-09-17] MEDS: NORVASC PO SCH (11:32)
[2018-09-17] MEDS: PROzac PO SCH (11:32)
[2018-09-17] MEDS: THALITONE PO SCH (11:33)
[2018-09-17] MEDS: BABY ASPIRIN PO SCH (11:33)
[2018-09-17] MEDS: SODIUM CHLORIDE FLUSH SYRINGE 10 ML IV SCH ×2 (11:40→21:49)
[2018-09-18] MEDS: APRESOLINE PO SCH (06:02)
[2018-09-18] MEDS: HumaLOG SUB-Q SCH ×4 (07:30→22:27)
--- NOTE | 2018-09-18 09:22 | Progress Note ---
Assessment and Plan /Sepsis secondary to UTI /ESBL;present on admission Completed total 4 days of Meropenem,per ID , contact isolation ID adv to continue contact isolation upon DC [no isolation room available available at SNF] /Status epilepticus: On admission No new episodes of seizure, Seizure precautions,on keppra 1000mg bid Ativan when necessary, neurology evaluated the patient. /Hypertensive Emergency: Present on admission. Blood pressures remained uncontrolled Patient is on high doses of multiple antihypertensives cont to monitor closely and cont to adjust dosage /Metabolic encephalopathy; present on admission; resolved /CLINT on CKD 3: Vasomotor nephropathy continue to monitor renal function, avoid nephrotoxins, creatinine level trending down Nephrology following /Hyperkalemia: Resolved. /Moderate to severe malnutrition: Nutrition supplements, dietitian evaluated /Severe debility; PT evaluated, poor rehabilitation potential /-Insulin-dependent diabetes; Accu-Chek sliding scale coverage and ADA diet Long-acting insulin,hemoglobin A1c 8.3 /-History of left AKA: Supportive care /History of endometrial cancer status post hysterectomy,stable /-History of major depression; continue current antidepression medications /-Dyslipidemia; stable on lipid-lowering medicine, low-cholesterol diet /DVT Prophylaxis; Lovenox Patient is medically stable for discharge Disposition ;Pt will return to SNF when isolation room is available Brief History 62-year-old female patient in care home resident was admitted through emergency room with witnessed seizures and status epilepticus. Patient was also noted to have hypertensive emergency requiring Cardene drip, admitted and stabilized in ICU, transferred to medical floor. Patient was placed on antiepileptic medications, seizure precautions, evaluated by neurology Patient had UTI present on admission positive for ESBL, placed on contact isolation, evaluated by ID, received meropenem for total 4 days, patient's symptoms significantly improved, ID advised to continue contact isolation. Patient did not have any new episodes of seizures, is hemodynamically and clinically stable for discharge. However isolation rooms are not available in the care home. Awaiting to return to care home when isolation room is available CXR: Mild cardiomegaly and pulm vasc congestion Hospitalist Physical General appearance: Present: no acute distress, well-nourished - EENT Eyes: Present: PERRL, EOM intact - Neck Neck: Present: supple, normal ROM - Respiratory Respiratory effort: normal Respiratory: bilateral: diminished, negative: rales, rhonchi, wheezing - Cardiovascular Rhythm: regular Heart Sounds: Present: S1 & S2 - Extremities Extremities: no ischemia, No edema, abnormal (left AKA) - Abdominal General gastrointestinal: soft, non-tender, non-distended, normal bowel sounds - Integumentary Integumentary: Present: clear, warm - Psychiatric Psychiatric: appropriate mood/affect - Neurologic Neurologic: CNII-XII intact, moves all extremities Subjective Date of service: 09/18/18 Principal diagnosis: UTI Interval history: Patient seen and examined. Medical records and medication list reviewed. No acute event overnight noted by the RN. Discharge pending on placement Objective - Constitutional Vitals: Vital Signs - 12hr 09/17/18 09/17/18 09/17/18 21:40 21:47 21:48 Temperature 98.1 F Pulse Rate 76 Respiratory 18 Rate Blood Pressure 195/67 195/67 195/67 O2 Sat by Pulse 96 Oximetry 09/17/18 09/18/18 23:03 05:30 Temperature 98.0 F 98.7 F Pulse Rate 68 71 Respiratory 20 20 Rate Blood Pressure 171/61 197/68 O2 Sat by Pulse 97 97 Oximetry - Labs CBC & Chem 7: 09/15/18 10:50 09/17/18 Unknown Labs: Abnormal lab results 09/17/18 09/17/18 09/17/18 Range/Units 09:04 13:26 16:51 Carbon Dioxide (22-30) mmol/L BUN (7-17) mg/dL Creatinine (0.7-1.2) mg/dL Glucose (65-100) mg/dL POC Glucose 192 H 192 H 308 H (70-105) 09/17/18 09/17/18 09/18/18 Range/Units 21:36 Unknown 07:47 Carbon Dioxide 21 L (22-30) mmol/L BUN 38 H (7-17) mg/dL Creatinine 2.0 H (0.7-1.2) mg/dL Glucose 191 H (65-100) mg/dL POC Glucose 151 H 157 H (70-105)
[2018-09-18] MEDS: PROzac PO SCH (10:38)
[2018-09-18] MEDS: BABY ASPIRIN PO SCH (10:38)
[2018-09-18] MEDS: KEPPRA PO SCH ×2 (10:38→22:26)
[2018-09-18] MEDS: NORVASC PO SCH (10:39)
[2018-09-18] MEDS: HEPARIN SUB-Q SCH ×2 (10:39→22:27)
[2018-09-18] MEDS: THALITONE PO SCH (10:40)
[2018-09-18] MEDS: COREG PO SCH ×2 (10:41→22:26)
[2018-09-18] MEDS: SODIUM CHLORIDE FLUSH SYRINGE 10 ML IV SCH ×2 (10:41→22:42)
[2018-09-18] MEDS ORDERED: APRESOLINE IV PRN (11:22)
--- NOTE | 2018-09-18 11:24 | Progress Note ---
Subjective Principal diagnosis: UTI Interval history: Patient was seen today for follow-up on multiple renal related issues Having issues with uncontrolled hypertension Interdisciplinary notes were also reviewed Vitals intake output medications were reviewed Past medical history: Reviewed Family, social history: Reviewed Allergies: Reviewed Physical examination General: No acute distress Vitals: Reviewed HEENT: Oral mucosa moist no icterus Neck: Supple no thyromegaly nodular mass or JVD Chest: Clear to auscultation anteriorly Heart: Regular rate and rhythm S1-S2 heard no S3-S4 Abdomen: Soft nontender no suprapubic masses no organomegaly Extremity: Dry skin less than 1+ edema Psych: No evidence of any agitation and aggression noted Derm: No petechial rash Assessment and plan: Hypertension: Blood pressure currently accelerated: Patient will require better control of blood pressure Creatinine currently to find 0 likely due to uncontrolled hypertension We'll discontinue hydralazine which is being given 150 3 times a day Start the patient on minoxidil 5 mg twice a day discontinue amlodipine and continue with carvedilol discontinue chlorthalidone Consider adding Lasix 40 mg 3 times a week Acute kidney injury, underlying stage III chronic kidney disease baseline creatinine between 1.4-1.7 Patient is stable from renal standpoint creatinine has been around 1.6 last 3-4 days Urinary tract infection with ESBL :treated, ultrasound shows no evidence of hydronephrosis Hyperkalemia: Stable at this time avoid nonsteroidal drugs a centimeters angiotensin receptor georges Hypertension: To monitor and follow, admitted with accelerated hypertension Metabolic acidosis: Appears to be doing better Multiple other comorbidities including seizure disorder endometrial cancer depression bradycardia etc. Admitted with hypertensive emergency was on Cardene drip, Encephalopathy currently improving has had status epilepticus, Prognosis: Guarded We'll continue to follow and make recommendation from renal standpoint Objective - Vital Signs Vital signs: Vital Signs - 12hr 09/18/18 09/18/18 05:30 10:39 Temperature 98.7 F Pulse Rate 71 71 Respiratory 20 Rate Blood Pressure 197/68 188/68 O2 Sat by Pulse 97 Oximetry - Lab 09/15/18 10:50 09/17/18 Unknown Most recent lab results Calcium 9.0 mg/dL (8.4-10.2) 09/17/18 Unknown Phosphorus 3.70 mg/dL (2.5-4.5) 08/23/18 09:05 Magnesium 1.90 mg/dL (1.7-2.3) 08/28/18 13:05 Medications & Allergies - Medications Allergies/Adverse Reactions: Allergies No Known Allergies Allergy (Unverified 06/05/17 13:30) Home Medications: Home Medications Medication Instructions Recorded Confirmed Last Taken Type Aspirin 81 mg PO DAILY 11/14/17 08/22/18 Unknown History Megestrol Acetate 800 mg PO DAILY 11/14/17 08/22/18 Unknown History OLANZapine [Zyprexa] 2.5 mg PO DAILY 11/14/17 08/22/18 Unknown History FLUoxetine [PROzac] 40 mg PO QDAY #30 capsule 11/26/17 08/22/18 Unknown Rx Ferrous Sulfate [Ferrous Sulfate 300 mg PO QDAY #30 oral.liqd 11/26/17 08/22/18 Unknown Rx Oral Liq 300 Mg/5 Ml] Pantoprazole [Protonix TAB] 40 mg PO QDAY #30 tablet 11/26/17 08/22/18 Unknown Rx amLODIPine [Norvasc] 10 mg PO DAILY #30 tablet 11/26/17 08/22/18 Unknown Rx Carvedilol [Coreg] 25 mg PO BID tablet 12/06/17 08/22/18 Unknown Rx cloNIDine [Catapres] 0.1 mg PO Q8H tablet 12/06/17 08/22/18 Unknown Rx traMADol [Ultram 50 MG tab] 50 mg PO Q12HR PRN #20 tablet 12/06/17 08/22/18 Unknown Rx Acetaminophen 325 mg PO Q6H PRN 12/22/17 08/22/18 Unknown History Glucagon HCl 1 mg IM ONCE PRN 12/22/17 08/22/18 Unknown History Klor-Con 10 10 meq PO DAILY 12/22/17 08/22/18 Unknown History Lispro Insulin [HumaLOG] See Protocol SC ACHS 12/22/17 08/22/18 Unknown History Simethicone 80 mg PO Q8H PRN 12/22/17 08/22/18 Unknown History levETIRAcetam [Keppra ORAL LIQ] 750 mg PO BID 30 Days bottle 01/04/18 08/22/18 Unknown Rx Active Medications: Generic Name Dose Route Start Last Admin Trade Name Freq PRN Reason Stop Dose Admin Acetaminophen 650 mg 08/22/18 23:50 09/07/18 20:34 Tylenol PO 650 mg Q4H PRN Administration Pain MILD(1-3)/Fever >100.5/CARTER Lipase/Protease/Amylase 1 each 08/23/18 15:27 Pancrerosa Billingsley 10,500 Unit FEEDTUBE PRN PRN For Clogged Feeding Tube Aspirin 81 mg 08/24/18 10:00 09/18/18 10:38 Baby Aspirin PO 81 mg DAILY NASH Administration Carvedilol 25 mg 08/25/18 22:00 09/18/18 10:41 Coreg PO 25 mg BID NASH Administration Dextrose 50 ml 08/22/18 23:50 D50w (25gm) Syringe IV PRN PRN Hypoglycemia Fluoxetine HCl 40 mg 08/24/18 10:00 09/18/18 10:38 Prozac PO 40 mg QDAY NASH Administration Heparin Sodium (Porcine) 5,000 unit 08/23/18 10:00 09/18/18 10:39 Heparin SUB-Q 5,000 unit Q12HR NASH Administration Hydralazine HCl 20 mg 09/18/18 11:22 Apresoline IV Q4HR PRN Hypertension Insulin Human Isoph/Insulin Regular 15 unit 08/25/18 12:00 09/18/18 09:02 Humulin 70/30 SUB-Q 15 unit BIDDIAB NASH Administration Insulin Human Lispro 0 unit 09/05/18 13:00 09/18/18 07:30 Humalog SUB-Q 3 unit ACHS NASH Administration Protocol Levetiracetam 1,000 mg 08/27/18 10:00 09/18/18 10:38 Keppra PO 1,000 mg BID NASH Administration Lorazepam 1 mg 08/23/18 01:58 09/14/18 21:38 Ativan IV 1 mg Q4H PRN Administration Seizures Minoxidil 5 mg 09/18/18 12:00 Loniten PO BID NASH Olanzapine 2.5 mg 08/24/18 10:00 09/18/18 10:40 Zyprexa PO 2.5 mg DAILY NASH Administration Ondansetron HCl 4 mg 08/22/18 23:50 Zofran IV Q8H PRN Nausea And Vomiting Simple Syrup 15 ml 08/23/18 15:27 Simple Syrup FEEDTUBE PRN PRN Hypoglycemia Simple Syrup 30 ml 08/23/18 15:27 Simple Syrup FEEDTUBE PRN PRN Hypoglycemia Sodium Bicarbonate 325 mg 08/23/18 15:27 Sodium Bicarbonate FEEDTUBE PRN PRN For Clogged Feeding Tube Sodium Chloride 10 ml 08/22/18 23:50 09/18/18 10:41 Sodium Chloride Flush Syringe 10 Ml IV 10 ml BID NASH Administration Sodium Chloride 10 ml 08/23/18 00:12 Sodium Chloride Flush Syringe 10 Ml IV PRN PRN LINE FLUSH
[2018-09-18] MEDS: LONITEN PO SCH ×2 (13:20→22:43)
[2018-09-19 05:33] LABS: Calcium 9.1 mg/dL (8.4-10.2)
[2018-09-19 05:56] LABS: Hematocrit TNR % (30.3-42.9); Hemoglobin TNR gm/dl (10.1-14.3); Mean Corpuscular HGB Conc TNR % (30-34); Mean Corpuscular Volume TNR fl (79-97); Platelet Count TNR K/mm3 (140-440); Red Blood Count TNR M/mm3 (3.65-5.03); Red Cell Distribution Width TNR % (13.2-15.2)
[2018-09-19 05:58] LABS: Basophils % (Auto) TNR % (0.0-1.8); Eosinophils % (Auto) TNR % (0.0-4.3); Lymphocytes # (Auto) TNR K/mm3 (1.2-5.4); Lymphocytes % (Auto) TNR % (13.4-35.0); Mean Platelet Volume TNR fl (6-12); Monocytes % (Auto) TNR % (0.0-7.3)
[2018-09-19 05:59] LABS: Basophils # (Auto) TNR K/mm3 (0.0-0.1); Eosinophils # (Auto) TNR K/mm3 (0.0-0.4); Monocytes # (Auto) TNR K/mm3 (0.0-0.8)
[2018-09-19 07:51] LABS: Basophils # (Auto) 0.1 K/mm3 (0.0-0.1); Basophils % (Auto) 1.3 % (0.0-1.8); Eosinophils # (Auto) 0.2 K/mm3 (0.0-0.4); Eosinophils % (Auto) 1.8 % (0.0-4.3); Hematocrit 25.8 % (30.3-42.9); Hemoglobin 8.5 gm/dl (10.1-14.3); Lymphocytes # (Auto) 1.8 K/mm3 (1.2-5.4); Lymphocytes % (Auto) 21.9 % (13.4-35.0); Mean Corpuscular HGB Conc 33 % (30-34); Mean Corpuscular Volume 90 fl (79-97); Monocytes # (Auto) 0.7 K/mm3 (0.0-0.8); Monocytes % (Auto) 7.7 % (0.0-7.3); Platelet Count 293 K/mm3 (140-440); Red Blood Count 2.88 M/mm3 (3.65-5.03); Red Cell Distribution Width 17.1 % (13.2-15.2)
[2018-09-19] MEDS: HumaLOG SUB-Q SCH ×4 (08:29→22:50)
[2018-09-19] MEDS: COREG PO SCH ×2 (10:04→22:50)
[2018-09-19] MEDS: PROzac PO SCH (10:04)
[2018-09-19] MEDS: KEPPRA PO SCH ×2 (10:04→22:50)
[2018-09-19] MEDS: HEPARIN SUB-Q SCH ×2 (10:04→22:55)
[2018-09-19] MEDS: BABY ASPIRIN PO SCH (10:04)
--- NOTE | 2018-09-19 10:04 | Progress Note ---
Assessment and Plan /Sepsis secondary to UTI /ESBL;present on admission Completed total 4 days of Meropenem,per ID , contact isolation ID adv to continue contact isolation upon DC [no isolation room available available at SNF] /Status epilepticus: On admission No new episodes of seizure, Seizure precautions,on keppra 1000mg bid Ativan when necessary, neurology evaluated the patient. /Hypertensive Emergency: Present on admission. Patient was on high doses of multiple antihypertensives, but Blood pressures remained uncontrolled cont to monitor closely and cont to adjust dosage New regimen: minoxidil 5 mg twice a day, carvedilol 25mg BID discontinue Lasix 40 mg 3 times a week /Metabolic encephalopathy; present on admission; resolved /CLINT on CKD 3: Vasomotor nephropathy continue to monitor renal function, avoid nephrotoxins, creatinine level trending down Nephrology following /Hyperkalemia: Resolved. /Moderate to severe malnutrition: Nutrition supplements, dietitian evaluated /Severe debility; PT evaluated, poor rehabilitation potential /-Insulin-dependent diabetes; Accu-Chek sliding scale coverage and ADA diet Long-acting insulin,hemoglobin A1c 8.3 /-History of left AKA: Supportive care /History of endometrial cancer status post hysterectomy,stable /-History of major depression; continue current antidepression medications /-Dyslipidemia; stable on lipid-lowering medicine, low-cholesterol diet /DVT Prophylaxis; Lovenox Patient is medically stable for discharge Disposition ;Pt will return to SNF when isolation room is available Brief History 62-year-old female patient in long term resident was admitted through emergency room with witnessed seizures and status epilepticus. Patient was also noted to have hypertensive emergency requiring Cardene drip, admitted and stabilized in ICU, transferred to medical floor. Patient was placed on antiepileptic medications, seizure precautions, evaluated by neurology Patient had UTI present on admission positive for ESBL, placed on contact isolation, evaluated by ID, received meropenem for total 4 days, patient's symptoms significantly improved, ID advised to continue contact isolation. Patient did not have any new episodes of seizures, is hemodynamically and clinically stable for discharge. However isolation rooms are not available in the long term. Awaiting to return to long term when isolation room is available CXR: Mild cardiomegaly and pulm vasc congestion Hospitalist Physical General appearance: Present: no acute distress, well-nourished - EENT Eyes: Present: PERRL, EOM intact - Neck Neck: Present: supple, normal ROM - Respiratory Respiratory effort: normal Respiratory: bilateral: diminished, negative: rales, rhonchi, wheezing - Cardiovascular Rhythm: regular Heart Sounds: Present: S1 & S2 - Extremities Extremities: no ischemia, No edema, abnormal (left AKA) - Abdominal General gastrointestinal: soft, non-tender, non-distended, normal bowel sounds - Integumentary Integumentary: Present: clear, warm - Psychiatric Psychiatric: appropriate mood/affect - Neurologic Neurologic: CNII-XII intact, moves all extremities Subjective Date of service: 09/19/18 Principal diagnosis: UTI Interval history: Patient seen and examined. Medical records and medication list reviewed. No acute event overnight noted by the RN. Discharge pending on placement Objective - Constitutional Vitals: Vital Signs - 12hr 09/18/18 09/18/18 09/19/18 22:24 22:26 00:09 Temperature 98.9 F 98.6 F Pulse Rate 79 73 Respiratory 18 20 Rate Blood Pressure 181/69 189/69 144/60 O2 Sat by Pulse 94 94 Oximetry 09/19/18 06:41 Temperature 98.3 F Pulse Rate 81 Respiratory 20 Rate Blood Pressure 183/65 O2 Sat by Pulse 90 Oximetry - Labs CBC & Chem 7: 09/19/18 07:27 09/19/18 04:48 Labs: Abnormal lab results 09/18/18 09/18/18 09/18/18 Range/Units 12:59 16:07 21:55 RBC (3.65-5.03) M/mm3 Hgb (10.1-14.3) gm/dl Hct (30.3-42.9) % RDW (13.2-15.2) % Nye % (Auto) (0.0-7.3) % Sodium (137-145) mmol/L Potassium (3.6-5.0) mmol/L Carbon Dioxide (22-30) mmol/L BUN (7-17) mg/dL Creatinine (0.7-1.2) mg/dL Glucose (65-100) mg/dL POC Glucose 228 H 184 H 192 H (70-105) 09/19/18 09/19/18 09/19/18 Range/Units 04:48 07:27 07:48 RBC 2.88 L (3.65-5.03) M/mm3 Hgb 8.5 L (10.1-14.3) gm/dl Hct 25.8 L (30.3-42.9) % RDW 17.1 H (13.2-15.2) % Nye % (Auto) 7.7 H (0.0-7.3) % Sodium 136 L (137-145) mmol/L Potassium 5.1 H (3.6-5.0) mmol/L Carbon Dioxide 21 L (22-30) mmol/L BUN 39 H (7-17) mg/dL Creatinine 2.3 H (0.7-1.2) mg/dL Glucose 117 H (65-100) mg/dL POC Glucose 164 H (70-105)
[2018-09-19] MEDS: SODIUM CHLORIDE FLUSH SYRINGE 10 ML IV SCH ×2 (10:05→22:50)
[2018-09-19] MEDS: LONITEN PO SCH ×2 (10:06→22:50)
[2018-09-19] MEDS ORDERED: LASIX PO SCH (11:00)
--- NOTE | 2018-09-19 12:39 | Progress Note ---
Subjective Principal diagnosis: UTI Interval history: Patient was seen today for follow-up on multiple renal related issues creatinine has gone up patient was initiated on Lasix Still having issues with hypertension Interdisciplinary notes were also reviewed Vitals intake output medications were reviewed Past medical history: Reviewed Family, social history: Reviewed Allergies: Reviewed Physical examination General: No acute distress Vitals: Reviewed HEENT: Oral mucosa moist no icterus Neck: Supple no thyromegaly nodular mass or JVD Chest: Clear to auscultation anteriorly Heart: Regular rate and rhythm S1-S2 heard no S3-S4 Abdomen: Soft nontender no suprapubic masses no organomegaly Extremity: Dry skin no edema Psych: No evidence of any agitation and aggression noted Derm: No petechial rash Assessment and plan: Acute kidney injury, underlying stage III chronic kidney disease baseline creatinine between 1.4-1.7 Noted to have worsening renal function after initiation of Lasix which was done as patient was started on minoxidil and has had some peripheral edema We'll discontinue IV Lasix for now, patient may need IV hydration tomorrow depending on her creatinine she will periodically need iron as well as erythropoietin For blood pressure continue with the current regimen of medications Urinary tract infection with ESBL :treated, ultrasound shows no evidence of hydronephrosis Hyperkalemia: Stable at this time avoid nonsteroidal drugs a centimeters angiotensin receptor georges Hypertension: To monitor and follow, admitted with accelerated hypertension Metabolic acidosis: Appears to be doing better Multiple other comorbidities including seizure disorder endometrial cancer depression bradycardia etc. Admitted with hypertensive emergency was on Cardene drip, Encephalopathy currently improving has had status epilepticus, Renal Prognosis: Guarded, she will be high risk for progression due to chronic uncontrolled hypertension and underlying chronic kidney disease We'll continue to follow and make recommendation from renal standpoint Objective - Vital Signs Vital signs: Vital Signs - 12hr 09/19/18 09/19/18 06:41 10:04 Temperature 98.3 F Pulse Rate 81 Respiratory 20 Rate Blood Pressure 183/65 163/62 O2 Sat by Pulse 90 Oximetry - Lab 09/19/18 07:27 09/19/18 04:48 Most recent lab results Calcium 9.1 mg/dL (8.4-10.2) 09/19/18 04:48 Phosphorus 3.70 mg/dL (2.5-4.5) 08/23/18 09:05 Magnesium 1.90 mg/dL (1.7-2.3) 08/28/18 13:05 Medications & Allergies - Medications Allergies/Adverse Reactions: Allergies No Known Allergies Allergy (Unverified 06/05/17 13:30) Home Medications: Home Medications Medication Instructions Recorded Confirmed Last Taken Type Aspirin 81 mg PO DAILY 11/14/17 08/22/18 Unknown History Megestrol Acetate 800 mg PO DAILY 11/14/17 08/22/18 Unknown History OLANZapine [Zyprexa] 2.5 mg PO DAILY 11/14/17 08/22/18 Unknown History FLUoxetine [PROzac] 40 mg PO QDAY #30 capsule 11/26/17 08/22/18 Unknown Rx Ferrous Sulfate [Ferrous Sulfate 300 mg PO QDAY #30 oral.liqd 11/26/17 08/22/18 Unknown Rx Oral Liq 300 Mg/5 Ml] Pantoprazole [Protonix TAB] 40 mg PO QDAY #30 tablet 11/26/17 08/22/18 Unknown Rx amLODIPine [Norvasc] 10 mg PO DAILY #30 tablet 11/26/17 08/22/18 Unknown Rx Carvedilol [Coreg] 25 mg PO BID tablet 12/06/17 08/22/18 Unknown Rx cloNIDine [Catapres] 0.1 mg PO Q8H tablet 12/06/17 08/22/18 Unknown Rx traMADol [Ultram 50 MG tab] 50 mg PO Q12HR PRN #20 tablet 12/06/17 08/22/18 Unknown Rx Acetaminophen 325 mg PO Q6H PRN 12/22/17 08/22/18 Unknown History Glucagon HCl 1 mg IM ONCE PRN 12/22/17 08/22/18 Unknown History Klor-Con 10 10 meq PO DAILY 12/22/17 08/22/18 Unknown History Lispro Insulin [HumaLOG] See Protocol SC ACHS 12/22/17 08/22/18 Unknown History Simethicone 80 mg PO Q8H PRN 12/22/17 08/22/18 Unknown History levETIRAcetam [Keppra ORAL LIQ] 750 mg PO BID 30 Days bottle 01/04/18 08/22/18 Unknown Rx Active Medications: Generic Name Dose Route Start Last Admin Trade Name Freq PRN Reason Stop Dose Admin Acetaminophen 650 mg 08/22/18 23:50 09/07/18 20:34 Tylenol PO 650 mg Q4H PRN Administration Pain MILD(1-3)/Fever >100.5/CARTER Lipase/Protease/Amylase 1 each 08/23/18 15:27 Pancrerosa Billingsley 10,500 Unit FEEDTUBE PRN PRN For Clogged Feeding Tube Aspirin 81 mg 08/24/18 10:00 09/19/18 10:04 Baby Aspirin PO 81 mg DAILY NASH Administration Carvedilol 25 mg 08/25/18 22:00 09/19/18 10:04 Coreg PO 25 mg BID NASH Administration Dextrose 50 ml 08/22/18 23:50 D50w (25gm) Syringe IV PRN PRN Hypoglycemia Fluoxetine HCl 40 mg 08/24/18 10:00 09/19/18 10:04 Prozac PO 40 mg QDAY NASH Administration Furosemide 40 mg 09/19/18 11:00 09/19/18 12:25 Lasix PO 40 mg Q48HR NASH Administration Heparin Sodium (Porcine) 5,000 unit 08/23/18 10:00 09/19/18 10:04 Heparin SUB-Q 5,000 unit Q12HR NASH Administration Hydralazine HCl 20 mg 09/18/18 11:22 09/18/18 16:35 Apresoline IV 20 mg Q4H PRN Administration Hypertension Insulin Human Isoph/Insulin Regular 15 unit 08/25/18 12:00 09/19/18 08:30 Humulin 70/30 SUB-Q 15 unit BIDDIAB NASH Administration Insulin Human Lispro 0 unit 09/05/18 13:00 09/19/18 12:26 Humalog SUB-Q 4 unit ACHS NASH Administration Protocol Levetiracetam 1,000 mg 08/27/18 10:00 09/19/18 10:04 Keppra PO 1,000 mg BID NASH Administration Lorazepam 1 mg 08/23/18 01:58 09/14/18 21:38 Ativan IV 1 mg Q4H PRN Administration Seizures Minoxidil 5 mg 09/18/18 12:00 09/19/18 10:06 Loniten PO 5 mg BID NASH Administration Olanzapine 2.5 mg 08/24/18 10:00 09/19/18 10:03 Zyprexa PO 2.5 mg DAILY NASH Administration Ondansetron HCl 4 mg 08/22/18 23:50 Zofran IV Q8H PRN Nausea And Vomiting Simple Syrup 15 ml 08/23/18 15:27 Simple Syrup FEEDTUBE PRN PRN Hypoglycemia Simple Syrup 30 ml 08/23/18 15:27 Simple Syrup FEEDTUBE PRN PRN Hypoglycemia Sodium Bicarbonate 325 mg 08/23/18 15:27 Sodium Bicarbonate FEEDTUBE PRN PRN For Clogged Feeding Tube Sodium Chloride 10 ml 08/22/18 23:50 09/19/18 10:05 Sodium Chloride Flush Syringe 10 Ml IV 10 ml BID NASH Administration Sodium Chloride 10 ml 08/23/18 00:12 Sodium Chloride Flush Syringe 10 Ml IV PRN PRN LINE FLUSH
[2018-09-20] MEDS: HumaLOG SUB-Q SCH ×4 (07:53→22:48)
[2018-09-20 08:19] LABS: Calcium 8.8 mg/dL (8.4-10.2)
[2018-09-20] MEDS: LONITEN PO SCH ×2 (09:15→22:48)
[2018-09-20] MEDS: KEPPRA PO SCH ×2 (09:15→22:48)
[2018-09-20] MEDS: COREG PO SCH ×2 (09:15→22:48)
[2018-09-20] MEDS: BABY ASPIRIN PO SCH (09:16)
[2018-09-20] MEDS: PROzac PO SCH (09:16)
[2018-09-20] MEDS: HEPARIN SUB-Q SCH ×2 (09:18→22:48)
[2018-09-20] MEDS: SODIUM CHLORIDE FLUSH SYRINGE 10 ML IV SCH ×2 (09:19→22:49)
--- NOTE | 2018-09-20 10:09 | Progress Note ---
Assessment and Plan Impression * Nonoliguric acute kidney injury secondary to prerenal azotemia on stage III CKD --Baseline SCr 1.4-1.7mg/dL * ESBL Ecoli UTI * Hyperkalemia * Hypertension * Type II DM * Metabolic acidosis * Seizure disorder * History of endometrial cancer * Depression * Bradycardia, iatrogenic - resolved Recommendation * SCr elevated above baseline - Lasix has been discontinued * BP is uncontrolled - meds reviewed; start Nifedipine 60mg XL * Encourage po hydration * Medical management of hyperkalemia * Renal diet * Abx per primary team * Glycemic control per primary team * Avoid nephrotoxins * Dose medications for renal function * Discharge planning in progress Subjective Date of service: 09/20/18 Principal diagnosis: UTI Interval history: Patient has no complaints today Objective - Vital Signs Vital signs: Vital Signs - 12hr 09/19/18 09/20/18 09/20/18 22:50 00:11 05:00 Temperature 99.0 F 98.5 F Pulse Rate 84 84 75 Respiratory 16 20 Rate Blood Pressure 149/66 Blood Pressure 149/66 158/52 [Right] O2 Sat by Pulse 95 98 Oximetry 09/20/18 09:15 Temperature Pulse Rate Respiratory Rate Blood Pressure 191/62 Blood Pressure [Right] O2 Sat by Pulse Oximetry - General Appearance General appearance: well-developed, well-nourished EENT: ATNC Respiratory: Present: Clear to Ascultation Cardiology: regular, S1S2 Gastrointestinal: normal, no tenderness, no distended Integumentary: warm and dry Psychiatric: cooperative - Lab 09/19/18 07:27 09/20/18 07:08 Most recent lab results Calcium 8.8 mg/dL (8.4-10.2) 09/20/18 07:08 Phosphorus 3.70 mg/dL (2.5-4.5) 08/23/18 09:05 Magnesium 1.90 mg/dL (1.7-2.3) 08/28/18 13:05 Medications & Allergies - Medications Allergies/Adverse Reactions: Allergies No Known Allergies Allergy (Unverified 06/05/17 13:30) Home Medications: Home Medications Medication Instructions Recorded Confirmed Last Taken Type Aspirin 81 mg PO DAILY 11/14/17 08/22/18 Unknown History Megestrol Acetate 800 mg PO DAILY 11/14/17 08/22/18 Unknown History OLANZapine [Zyprexa] 2.5 mg PO DAILY 11/14/17 08/22/18 Unknown History FLUoxetine [PROzac] 40 mg PO QDAY #30 capsule 11/26/17 08/22/18 Unknown Rx Ferrous Sulfate [Ferrous Sulfate 300 mg PO QDAY #30 oral.liqd 11/26/17 08/22/18 Unknown Rx Oral Liq 300 Mg/5 Ml] Pantoprazole [Protonix TAB] 40 mg PO QDAY #30 tablet 11/26/17 08/22/18 Unknown Rx amLODIPine [Norvasc] 10 mg PO DAILY #30 tablet 11/26/17 08/22/18 Unknown Rx Carvedilol [Coreg] 25 mg PO BID tablet 12/06/17 08/22/18 Unknown Rx cloNIDine [Catapres] 0.1 mg PO Q8H tablet 12/06/17 08/22/18 Unknown Rx traMADol [Ultram 50 MG tab] 50 mg PO Q12HR PRN #20 tablet 12/06/17 08/22/18 Unknown Rx Acetaminophen 325 mg PO Q6H PRN 12/22/17 08/22/18 Unknown History Glucagon HCl 1 mg IM ONCE PRN 12/22/17 08/22/18 Unknown History Klor-Con 10 10 meq PO DAILY 12/22/17 08/22/18 Unknown History Lispro Insulin [HumaLOG] See Protocol SC ACHS 12/22/17 08/22/18 Unknown History Simethicone 80 mg PO Q8H PRN 12/22/17 08/22/18 Unknown History levETIRAcetam [Keppra ORAL LIQ] 750 mg PO BID 30 Days bottle 01/04/18 08/22/18 Unknown Rx Active Medications: Generic Name Dose Route Start Last Admin Trade Name Freq PRN Reason Stop Dose Admin Acetaminophen 650 mg 08/22/18 23:50 09/07/18 20:34 Tylenol PO 650 mg Q4H PRN Administration Pain MILD(1-3)/Fever >100.5/CARTER Lipase/Protease/Amylase 1 each 08/23/18 15:27 Teresa Billingsley 10,500 Unit FEEDTUBE PRN PRN For Clogged Feeding Tube Aspirin 81 mg 08/24/18 10:00 09/20/18 09:16 Baby Aspirin PO 81 mg DAILY NASH Administration Carvedilol 25 mg 08/25/18 22:00 09/20/18 09:15 Coreg PO 25 mg BID NASH Administration Dextrose 50 ml 08/22/18 23:50 D50w (25gm) Syringe IV PRN PRN Hypoglycemia Fluoxetine HCl 40 mg 08/24/18 10:00 09/20/18 09:16 Prozac PO 40 mg QDAY NASH Administration Heparin Sodium (Porcine) 5,000 unit 08/23/18 10:00 09/20/18 09:18 Heparin SUB-Q 5,000 unit Q12HR NASH Administration Hydralazine HCl 20 mg 09/18/18 11:22 09/18/18 16:35 Apresoline IV 20 mg Q4H PRN Administration Hypertension Insulin Human Isoph/Insulin Regular 15 unit 08/25/18 12:00 09/20/18 09:33 Humulin 70/30 SUB-Q 15 unit BIDDIAB NASH Administration Insulin Human Lispro 0 unit 09/05/18 13:00 09/20/18 07:53 Humalog SUB-Q Not Given ACHS [facility] Protocol Levetiracetam 1,000 mg 08/27/18 10:00 09/20/18 09:15 Keppra PO 1,000 mg BID NASH Administration Lorazepam 1 mg 08/23/18 01:58 09/14/18 21:38 Ativan IV 1 mg Q4H PRN Administration Seizures Minoxidil 5 mg 09/18/18 12:00 09/20/18 09:15 Loniten PO 5 mg BID NASH Administration Olanzapine 2.5 mg 08/24/18 10:00 09/20/18 09:19 Zyprexa PO 2.5 mg DAILY NASH Administration Ondansetron HCl 4 mg 08/22/18 23:50 09/20/18 00:04 Zofran IV 4 mg Q8H PRN Administration Nausea And Vomiting Simple Syrup 15 ml 08/23/18 15:27 Simple Syrup FEEDTUBE PRN PRN Hypoglycemia Simple Syrup 30 ml 08/23/18 15:27 Simple Syrup FEEDTUBE PRN PRN Hypoglycemia Sodium Bicarbonate 325 mg 08/23/18 15:27 Sodium Bicarbonate FEEDTUBE PRN PRN For Clogged Feeding Tube Sodium Chloride 10 ml 08/22/18 23:50 09/20/18 09:19 Sodium Chloride Flush Syringe 10 Ml IV 10 ml BID NASH Administration Sodium Chloride 10 ml 08/23/18 00:12 Sodium Chloride Flush Syringe 10 Ml IV PRN PRN LINE FLUSH
[2018-09-20] MEDS: PROCARDIA XL PO SCH (13:14)
--- NOTE | 2018-09-20 13:18 | Progress Note ---
Assessment and Plan Assessment and plan: --Sepsis secondary to UTI /ESBL;present on admission Completed total 4 days of Meropenem,per ID , contact isolation ID adv to continue contact isolation upon DC [no isolation room available available at SNF] --Status epilepticus: On admission No new episodes of seizure, Seizure precautions,on keppra 1000mg bid Ativan when necessary, neurology evaluated the patient. --Hypertensive Emergency: Present on admission. Patient was on high doses of multiple antihypertensives, but Blood pressures remained uncontrolled cont to monitor closely and cont to adjust dosage New regimen: minoxidil 5 mg twice a day, carvedilol 25mg BID,Nifedipine --Metabolic encephalopathy; present on admission; resolved --CLINT on CKD 3: Vasomotor nephropathy continue to monitor renal function, avoid nephrotoxins, cNephrology following --Hyperkalemia: Resolved. --Moderate to severe malnutrition: Nutrition supplements, dietitian evaluated --Severe debility; PT evaluated, poor rehabilitation potential --Insulin-dependent diabetes; Accu-Chek sliding scale coverage and ADA diet Long-acting insulin,hemoglobin A1c 8.3 --History of left AKA: Supportive care --History of endometrial cancer status post hysterectomy,stable --History of major depression; continue current antidepression medications --Dyslipidemia; stable on lipid-lowering medicine, low-cholesterol diet --DVT Prophylaxis; Lovenox Patient is medically stable for discharge Disposition ;Pt will return to SNF when isolation room is available History Interval history: Patient seen and examined medical records reviewed Patient has no new complaints, Vital signs stable No new overnight events reported by the nursing Awaiting SNF placement when isolated room is available Hospitalist Physical - Constitutional Vitals: Temp Pulse Resp BP Pulse Ox 97.7 F 76 14 148/53 90 09/20/18 11:46 09/20/18 11:46 09/20/18 11:46 09/20/18 11:46 09/20/18 11:46 General appearance: Present: no acute distress, well-nourished - EENT Eyes: Present: PERRL, EOM intact - Neck Neck: Present: supple, normal ROM - Respiratory Respiratory effort: normal Respiratory: bilateral: diminished, negative: rales, rhonchi, wheezing - Cardiovascular Rhythm: regular Heart Sounds: Present: S1 & S2 - Extremities Extremities: no ischemia, No edema, abnormal (Lt AKA) - Abdominal General gastrointestinal: soft, non-tender, non-distended, normal bowel sounds - Integumentary Integumentary: Present: clear, warm - Psychiatric Psychiatric: appropriate mood/affect, cooperative - Neurologic Neurologic: CNII-XII intact, moves all extremities Results - Labs CBC & Chem 7: 09/19/18 07:27 09/20/18 07:08 Labs: Laboratory Last Values WBC 8.4 K/mm3 (4.5-11.0) 09/19/18 07:27 RBC 2.88 M/mm3 (3.65-5.03) L 09/19/18 07:27 Hgb 8.5 gm/dl (10.1-14.3) L 09/19/18 07:27 Hct 25.8 % (30.3-42.9) L 09/19/18 07:27 MCV 90 fl (79-97) 09/19/18 07:27 MCH 29 pg (28-32) 09/19/18 07:27 MCHC 33 % (30-34) 09/19/18 07:27 RDW 17.1 % (13.2-15.2) H 09/19/18 07:27 Plt Count 293 K/mm3 (140-440) 09/19/18 07:27 Lymph % (Auto) 21.9 % (13.4-35.0) 09/19/18 07:27 [place] % (Auto) 7.7 % (0.0-7.3) H 09/19/18 07:27 Eos % (Auto) 1.8 % (0.0-4.3) 09/19/18 07:27 Baso % (Auto) 1.3 % (0.0-1.8) 09/19/18 07:27 Lymph # 1.8 K/mm3 (1.2-5.4) 09/19/18 07:27 [place] # 0.7 K/mm3 (0.0-0.8) 09/19/18 07:27 Eos # 0.2 K/mm3 (0.0-0.4) 09/19/18 07:27 Baso # 0.1 K/mm3 (0.0-0.1) 09/19/18 07:27 Add Manual Diff TNR 09/19/18 04:48 Total Counted 100 08/30/18 05:24 Seg Neutrophils % 67.3 % (40.0-70.0) 09/19/18 07:27 Seg Neuts % (Manual) 69.0 % (40.0-70.0) 08/30/18 05:24 2.0 % 08/30/18 05:24 14.0 % (13.4-35.0) 08/30/18 05:24 Reactive Lymphs % (Man) 0 % 08/30/18 05:24 13.0 % (0.0-7.3) H 08/30/18 05:24 2.0 % (0.0-4.3) 08/30/18 05:24 0 % (0.0-1.8) 08/30/18 05:24 0 % 08/30/18 05:24 0 % 08/30/18 05:24 0 % 08/30/18 05:24 0 % 08/30/18 05:24 Nucleated RBC % Not Reportable 08/30/18 05:24 Seg Neutrophils # 5.7 K/mm3 (1.8-7.7) 09/19/18 07:27 Seg Neutrophils # Man 6.1 K/mm3 (1.8-7.7) 08/30/18 05:24 Band Neutrophils # 0.2 K/mm3 08/30/18 05:24 1.2 K/mm3 (1.2-5.4) 08/30/18 05:24 Abs React Lymphs (Man) 0.0 K/mm3 08/30/18 05:24 1.2 K/mm3 (0.0-0.8) H 08/30/18 05:24 0.2 K/mm3 (0.0-0.4) 08/30/18 05:24 0.0 K/mm3 (0.0-0.1) 08/30/18 05:24 0.0 K/mm3 08/30/18 05:24 0.0 K/mm3 08/30/18 05:24 0.0 K/mm3 08/30/18 05:24 Blast Cells # 0.0 K/mm3 08/30/18 05:24 WBC Morphology Not Reportable 08/30/18 05:24 Hypersegmented Neuts Not Reportable 08/30/18 05:24 Hyposegmented Neuts Not Reportable 08/30/18 05:24 Hypogranular Neuts Not Reportable 08/30/18 05:24 Not Reportable 08/30/18 05:24 Not Reportable 08/30/18 05:24 Not Reportable 08/30/18 05:24 Not Reportable 08/30/18 05:24 Not Reportable 08/30/18 05:24 Not Reportable 08/30/18 05:24 Consistent w auto 08/30/18 05:24 Not Reportable 08/30/18 05:24 Plt Clumps, EDTA Not Reportable 08/30/18 05:24 Not Reportable 08/30/18 05:24 Not Reportable 08/30/18 05:24 Not Reportable 08/30/18 05:24 Plt Morphology Comment Not Reportable 08/30/18 05:24 RBC Morphology Not Reportable 08/30/18 05:24 Dimorphic RBCs Not Reportable 08/30/18 05:24 Not Reportable 08/30/18 05:24 Not Reportable 08/30/18 05:24 Not Reportable 08/30/18 05:24 Not Reportable 08/30/18 05:24 Not Reportable 08/30/18 05:24 Few 08/30/18 05:24 Not Reportable 08/30/18 05:24 Not Reportable 08/30/18 05:24 Not Reportable 08/30/18 05:24 Not Reportable 08/30/18 05:24 Not Reportable 08/30/18 05:24 Not Reportable 08/30/18 05:24 Not Reportable 08/30/18 05:24 Not Reportable 08/30/18 05:24 Not Reportable 08/30/18 05:24 Not Reportable 08/30/18 05:24 Not Reportable 08/30/18 05:24 Not Reportable 08/30/18 05:24 Not Reportable 08/30/18 05:24 Acanthocytes (Spur) Not Reportable 08/30/18 05:24 Rouleaux Not Reportable 08/30/18 05:24 Not Reportable 08/30/18 05:24 Not Reportable 08/30/18 05:24 Not Reportable 08/30/18 05:24 Percent Retic 2.29 % (0.78-2.58) 09/13/18 05:25 Not Reportable 08/30/18 05:24 Hem Pathologist Commnt No 08/30/18 05:24 Sodium 133 mmol/L (137-145) L 09/20/18 07:08 Potassium 6.0 mmol/L (3.6-5.0) H 09/20/18 07:08 Chloride 102.7 mmol/L (98-107) 09/20/18 07:08 Carbon Dioxide 17 mmol/L (22-30) L 09/20/18 07:08 19 mmol/L 09/20/18 07:08 BUN 45 mg/dL (7-17) H 09/20/18 07:08 2.4 mg/dL (0.7-1.2) H 09/20/18 07:08 Estimated GFR 25 ml/min 09/20/18 07:08 19 % 09/20/18 07:08 Glucose 106 mg/dL (65-100) H 09/20/18 07:08 POC Glucose 290 (70-105) H 09/20/18 11:46 8.3 % (4-6) H 08/23/18 01:03 313 Mosm/kg 08/23/18 10:10 Lactic Acid 0.80 mmol/L (0.7-2.0) 08/23/18 10:10 7.3 mg/dL (3.5-7.6) 09/15/18 10:50 Calcium 8.8 mg/dL (8.4-10.2) 09/20/18 07:08 Phosphorus 3.70 mg/dL (2.5-4.5) 08/23/18 09:05 Magnesium 1.90 mg/dL (1.7-2.3) 08/28/18 13:05 Iron 39 ug/dL (37-170) 09/13/18 05:25 TIBC 187 mcg/dL (250-450) L 09/13/18 05:25 % Saturation 20.86 % 09/13/18 05:25 163 mg/dl (192-382) L 09/13/18 05:25 0.30 mg/dL (0.1-1.2) 08/23/18 09:05 AST 19 units/L (5-40) 08/23/18 09:05 ALT 7 units/L (7-56) 08/23/18 09:05 93 units/L (35-129) 08/23/18 09:05 612 units/L (30-135) H 08/23/18 09:05 7.4 g/dL (6.3-8.2) 08/23/18 09:05 3.1 g/dL (3.9-5) L 08/23/18 09:05 0.7 % 08/23/18 09:05 Triglycerides 160 mg/dL (2-149) H 08/23/18 04:08 Cholesterol 325 mg/dL (50-199) H 08/23/18 04:08 248 mg/dL (50-130) H 08/23/18 04:08 60 mg/dL (40-59) H 08/23/18 04:08 5.41 % 08/23/18 04:08 0.08 ng/mL/h (0.25-5.82) L 08/23/18 10:10 3 ng/dL () 08/23/18 10:10 Aldosterone/Renin Dir 37.5 Ratio (0.9-28.9) H 08/23/18 10:10 Vitamin B12 838.9 pg/mL (211-911) 09/13/18 11:35 12.99 ng/mL (7.3-26.0) 09/13/18 11:35 [place] (Yellow) 08/22/18 19:45 Cloudy (Clear) 08/22/18 19:45 6.0 (5.0-7.0) 08/22/18 19:45 Ur Specific [place] 1.024 (1.003-1.030) 08/22/18 19:45 >500 mg/dL (Negative) 08/22/18 19:45 150 mg/dL (Negative) 08/22/18 19:45 Neg mg/dL (Negative) 08/22/18 19:45 Sm (Negative) 08/22/18 19:45 Neg (Negative) 08/22/18 19:45 Neg (Negative) 08/22/18 19:45 < 2.0 mg/dL (<2.0) 08/22/18 19:45 Ur Leukocyte Esterase Tr (Negative) 08/22/18 19:45 42.0 /HPF (0.0-6.0) H 08/22/18 19:45 11.0 /HPF (0.0-6.0) 08/22/18 19:45 U Epithel Cells (Auto) 4.0 /HPF (0-13.0) 08/22/18 19:45 4+ /HPF (Negative) 08/22/18 19:45 Hyaline Casts 7 /LPF 08/22/18 19:45 1+ /HPF 08/22/18 19:45 Immunofix Electrophor see below 09/13/18 11:35 Active Medications - Current Medications Current Medications: Generic Name Dose Route Start Last Admin Trade Name Freq PRN Reason Stop Dose Admin Acetaminophen 650 mg 08/22/18 23:50 09/07/18 20:34 Tylenol PO 650 mg Q4H PRN Administration Pain MILD(1-3)/Fever >100.5/CARTER Lipase/Protease/Amylase 1 each 08/23/18 15:[address] 10,500 Unit FEEDTUBE PRN PRN For Clogged Feeding Tube Aspirin 81 mg 08/24/18 10:00 09/20/18 09:16 Baby Aspirin PO 81 mg DAILY NASH Administration Carvedilol 25 mg 08/25/18 22:00 09/20/18 09:15 Coreg PO 25 mg BID NASH Administration Dextrose 50 ml 08/22/18 23:50 D50w (25gm) Syringe IV PRN PRN Hypoglycemia Fluoxetine HCl 40 mg 08/24/18 10:00 09/20/18 09:16 Prozac PO 40 mg QDAY NASH Administration Heparin Sodium (Porcine) 5,000 unit 08/23/18 10:00 09/20/18 09:18 Heparin SUB-Q 5,000 unit Q12HR NASH Administration Hydralazine HCl 20 mg 09/18/18 11:22 09/18/18 16:35 Apresoline IV 20 mg Q4H PRN Administration Hypertension Insulin Human Isoph/Insulin Regular 15 unit 08/25/18 12:00 09/20/18 09:33 Humulin 70/30 SUB-Q 15 unit BIDDIAB NASH Administration Insulin Human Lispro 0 unit 09/05/18 13:00 09/20/18 13:15 Humalog SUB-Q 6 unit ACHS NASH Administration Protocol Levetiracetam 1,000 mg 08/27/18 10:00 09/20/18 09:15 Keppra PO 1,000 mg BID NASH Administration Lorazepam 1 mg 08/23/18 01:58 09/14/18 21:38 Ativan IV 1 mg Q4H PRN Administration Seizures Minoxidil 5 mg 09/18/18 12:00 09/20/18 09:15 Loniten PO 5 mg BID NASH Administration Nifedipine 60 mg 09/20/18 11:00 09/20/18 13:14 Procardia Xl PO 60 mg QDAY NASH Administration Olanzapine 2.5 mg 08/24/18 10:00 09/20/18 09:19 Zyprexa PO 2.5 mg DAILY NASH Administration Ondansetron HCl 4 mg 08/22/18 23:50 09/20/18 00:04 Zofran IV 4 mg Q8H PRN Administration Nausea And Vomiting Simple Syrup 15 ml 08/23/18 15:27 Simple Syrup FEEDTUBE PRN PRN Hypoglycemia Simple Syrup 30 ml 08/23/18 15:27 Simple Syrup FEEDTUBE PRN PRN Hypoglycemia Sodium Bicarbonate 325 mg 08/23/18 15:27 Sodium Bicarbonate FEEDTUBE PRN PRN For Clogged Feeding Tube Sodium Chloride 10 ml 08/22/18 23:50 09/20/18 09:19 Sodium Chloride Flush Syringe 10 Ml IV 10 ml BID NASH Administration Sodium Chloride 10 ml 08/23/18 00:12 Sodium Chloride Flush Syringe 10 Ml IV PRN PRN LINE FLUSH Nutrition/Malnutrition Assess - Dietary Evaluation Nutrition/Malnutrition Findings: Nutrition Notes Start: 08/23/18 15:56 Freq: Status: Active Protocol: Document 09/19/18 13:45 OH (Rec: 09/19/18 13:53 OH [id number]) Nutrition Notes Initial or Follow up Reassessment Current Diagnosis Acute Kidney Injury,CKD(stage I-IV),Coronary Artery Disease, Diabetes,Sepsis,Hypertension, Hyperlipidemia Other Pertinent Diagnosis PVD, Hx endometrial CA, Seizures, AKA Current Diet Renal w/Nepro 1 daily Labs/Tests Reviewed Pertinent Medications Reviewed Height 5 ft Weight 56.3 kg [place] Body Weight (kg) 45.45 BMI 24.2 Subjective/Other Information Pt. sitting up in bed. Pt. answering questions but appears confused. [facility] Awaiting d/c back to SNF once isolation bed available. Percent of energy/protein needs met: 75/75% Burn Absent Trauma Absent #1 Diagnosis Progress(for reassessment Continues documentation) Is patient on ventilator? No Is Patient Ambulatory and/or Out of Bed No REE-([facility]-confined to bed) [phone] Calculation Used for Recommendations Kcal/kg Additional Notes Protein Needs: 54-67g (0.8-1g/ kg 67kg adjBW) Fluid Needs: 1 ml/kcal Nutrition Intervention Change Diet Order: Renal Add Supplement/Snack (indicate name/kcal Nepro 1 daily /protein ) Provides kCal: 425 Provides Protein (gm) 19 Goal #1 Continue to meet at least 75% of calorie and protein needs via PO and ONS intakes Anticipated Discharge Needs: Renal diet Revisit per MD consult or patient Sign Off request:
[2018-09-20] MEDS ORDERED: KIONEX PO ONE (18:00)
[2018-09-21 06:51] LABS: Calcium 8.6 mg/dL (8.4-10.2)
[2018-09-21] MEDS: HumaLOG SUB-Q SCH ×4 (08:17→23:34)
--- NOTE | 2018-09-21 08:27 | Progress Note ---
Assessment and Plan Assessment and plan: --Constipation; milk of magnesia, Dulcolax suppository If no improvement enema. Advised patient to afford her fluids --Hypertensive Emergency: Present on admission. Patient's blood pressures are on the higher range Continue current antihypertensives, we'll add hydralazine 25 mg 3 times a day Closely monitor --Hyperkalemia; corrected, monitor electrolytes --CLINT on CKD 3: Vasomotor nephropathy continue to monitor renal function, avoid nephrotoxins, Gentle hydration as needed, nephrology following --Sepsis secondary to UTI /ESBL;present on admission Completed total 4 days of Meropenem,per ID , contact isolation ID adv to continue contact isolation upon DC [no isolation room available available at [facility]] --Status epilepticus: On admission No new episodes of seizure, Seizure precautions,on keppra 1000mg bid Ativan when necessary, neurology evaluated the patient. --Metabolic encephalopathy; present on admission; resolved --Moderate to severe malnutrition: Nutrition supplements, dietitian evaluated --Severe debility; PT evaluated, poor rehabilitation potential --Insulin-dependent diabetes; Accu-Chek sliding scale coverage and ADA diet Long-acting insulin,hemoglobin A1c 8.3 --History of left AKA: Supportive care --History of endometrial cancer status post hysterectomy,stable --History of major depression; continue current antidepression medications --Dyslipidemia; stable on lipid-lowering medicine, low-cholesterol diet --DVT Prophylaxis; Lovenox Patient is medically stable for discharge Disposition ;Pt will return to SNF when isolation room is available History Interval history: Patient complaints of constipation Alert awake oriented Vital signs noted Hospitalist Physical - Constitutional Vitals: Temp Pulse Resp BP Pulse Ox 98.7 F 80 24 189/65 90 09/21/18 04:34 09/21/18 04:34 09/21/18 04:34 09/21/18 04:34 09/21/18 04:34 General appearance: Present: no acute distress, well-nourished - EENT Eyes: Present: PERRL, EOM intact - Neck Neck: Present: supple, normal ROM - Respiratory Respiratory effort: normal Respiratory: bilateral: diminished, negative: rales, rhonchi, wheezing - Cardiovascular Rhythm: regular Heart Sounds: Present: S1 & S2 - Extremities Extremities: no ischemia, No edema, abnormal (left AKA) - Abdominal General gastrointestinal: soft, non-tender, non-distended, normal bowel sounds - Integumentary Integumentary: Present: clear, warm - Psychiatric Psychiatric: appropriate mood/affect, cooperative - Neurologic Neurologic: CNII-XII intact, moves all extremities Results - Labs CBC & Chem 7: 09/19/18 07:27 09/21/18 06:00 Labs: Laboratory Last Values WBC 8.4 K/mm3 (4.5-11.0) 09/19/18 07:27 RBC 2.88 M/mm3 (3.65-5.03) L 09/19/18 07:27 Hgb 8.5 gm/dl (10.1-14.3) L 09/19/18 07:27 Hct 25.8 % (30.3-42.9) L 09/19/18 07:27 MCV 90 fl (79-97) 09/19/18 07:27 MCH 29 pg (28-32) 09/19/18 07:27 MCHC 33 % (30-34) 09/19/18 07:27 RDW 17.1 % (13.2-15.2) H 09/19/18 07:27 Plt Count 293 K/mm3 (140-440) 09/19/18 07:27 Lymph % (Auto) 21.9 % (13.4-35.0) 09/19/18 07:27 [place] % (Auto) 7.7 % (0.0-7.3) H 09/19/18 07:27 Eos % (Auto) 1.8 % (0.0-4.3) 09/19/18 07:27 Baso % (Auto) 1.3 % (0.0-1.8) 09/19/18 07:27 Lymph # 1.8 K/mm3 (1.2-5.4) 09/19/18 07:27 [place] # 0.7 K/mm3 (0.0-0.8) 09/19/18 07:27 Eos # 0.2 K/mm3 (0.0-0.4) 09/19/18 07:27 Baso # 0.1 K/mm3 (0.0-0.1) 09/19/18 07:27 Add Manual Diff TNR 09/19/18 04:48 Total Counted 100 08/30/18 05:24 Seg Neutrophils % 67.3 % (40.0-70.0) 09/19/18 07:27 Seg Neuts % (Manual) 69.0 % (40.0-70.0) 08/30/18 05:24 2.0 % 08/30/18 05:24 14.0 % (13.4-35.0) 08/30/18 05:24 Reactive Lymphs % (Man) 0 % 08/30/18 05:24 13.0 % (0.0-7.3) H 08/30/18 05:24 2.0 % (0.0-4.3) 08/30/18 05:24 0 % (0.0-1.8) 08/30/18 05:24 0 % 08/30/18 05:24 0 % 08/30/18 05:24 0 % 08/30/18 05:24 0 % 08/30/18 05:24 Nucleated RBC % Not Reportable 08/30/18 05:24 Seg Neutrophils # 5.7 K/mm3 (1.8-7.7) 09/19/18 07:27 Seg Neutrophils # Man 6.1 K/mm3 (1.8-7.7) 08/30/18 05:24 Band Neutrophils # 0.2 K/mm3 08/30/18 05:24 1.2 K/mm3 (1.2-5.4) 08/30/18 05:24 Abs React Lymphs (Man) 0.0 K/mm3 08/30/18 05:24 1.2 K/mm3 (0.0-0.8) H 08/30/18 05:24 0.2 K/mm3 (0.0-0.4) 08/30/18 05:24 0.0 K/mm3 (0.0-0.1) 08/30/18 05:24 0.0 K/mm3 08/30/18 05:24 0.0 K/mm3 08/30/18 05:24 0.0 K/mm3 08/30/18 05:24 Blast Cells # 0.0 K/mm3 08/30/18 05:24 WBC Morphology Not Reportable 08/30/18 05:24 Hypersegmented Neuts Not Reportable 08/30/18 05:24 Hyposegmented Neuts Not Reportable 08/30/18 05:24 Hypogranular Neuts Not Reportable 08/30/18 05:24 Not Reportable 08/30/18 05:24 Not Reportable 08/30/18 05:24 Not Reportable 08/30/18 05:24 Not Reportable 08/30/18 05:24 Not Reportable 08/30/18 05:24 Not Reportable 08/30/18 05:24 Consistent w auto 08/30/18 05:24 Not Reportable 08/30/18 05:24 Plt Clumps, EDTA Not Reportable 08/30/18 05:24 Not Reportable 08/30/18 05:24 Not Reportable 08/30/18 05:24 Not Reportable 08/30/18 05:24 Plt Morphology Comment Not Reportable 08/30/18 05:24 RBC Morphology Not Reportable 08/30/18 05:24 Dimorphic RBCs Not Reportable 08/30/18 05:24 Not Reportable 08/30/18 05:24 Not Reportable 08/30/18 05:24 Not Reportable 08/30/18 05:24 Not Reportable 08/30/18 05:24 Not Reportable 08/30/18 05:24 Few 08/30/18 05:24 Not Reportable 08/30/18 05:24 Not Reportable 08/30/18 05:24 Not Reportable 08/30/18 05:24 Not Reportable 08/30/18 05:24 Not Reportable 08/30/18 05:24 Not Reportable 08/30/18 05:24 Not Reportable 08/30/18 05:24 Not Reportable 08/30/18 05:24 Not Reportable 08/30/18 05:24 Not Reportable 08/30/18 05:24 Not Reportable 08/30/18 05:24 Not Reportable 08/30/18 05:24 Not Reportable 08/30/18 05:24 Acanthocytes (Spur) Not Reportable 08/30/18 05:24 Rouleaux Not Reportable 08/30/18 05:24 Not Reportable 08/30/18 05:24 Not Reportable 08/30/18 05:24 Not Reportable 08/30/18 05:24 Percent Retic 2.29 % (0.78-2.58) 09/13/18 05:25 Not Reportable 08/30/18 05:24 Hem Pathologist Commnt No 08/30/18 05:24 Sodium 140 mmol/L (137-145) D 09/21/18 06:00 Potassium 4.6 mmol/L (3.6-5.0) D 09/21/18 06:00 Chloride 104.5 mmol/L (98-107) 09/21/18 06:00 Carbon Dioxide 22 mmol/L (22-30) 09/21/18 06:00 18 mmol/L 09/21/18 06:00 BUN 48 mg/dL (7-17) H 09/21/18 06:00 2.4 mg/dL (0.7-1.2) H 09/21/18 06:00 Estimated GFR 25 ml/min 09/21/18 06:00 20 % 09/21/18 06:00 Glucose 89 mg/dL (65-100) 09/21/18 06:00 POC Glucose 98 (70-105) 09/21/18 08:10 8.3 % (4-6) H 08/23/18 01:03 313 Mosm/kg 08/23/18 10:10 Lactic Acid 0.80 mmol/L (0.7-2.0) 08/23/18 10:10 7.3 mg/dL (3.5-7.6) 09/15/18 10:50 Calcium 8.6 mg/dL (8.4-10.2) 09/21/18 06:00 Phosphorus 3.70 mg/dL (2.5-4.5) 08/23/18 09:05 Magnesium 1.90 mg/dL (1.7-2.3) 08/28/18 13:05 Iron 39 ug/dL (37-170) 09/13/18 05:25 TIBC 187 mcg/dL (250-450) L 09/13/18 05:25 % Saturation 20.86 % 09/13/18 05:25 163 mg/dl (192-382) L 09/13/18 05:25 0.30 mg/dL (0.1-1.2) 08/23/18 09:05 AST 19 units/L (5-40) 08/23/18 09:05 ALT 7 units/L (7-56) 08/23/18 09:05 93 units/L (35-129) 08/23/18 09:05 612 units/L (30-135) H 08/23/18 09:05 7.4 g/dL (6.3-8.2) 08/23/18 09:05 3.1 g/dL (3.9-5) L 08/23/18 09:05 0.7 % 08/23/18 09:05 Triglycerides 160 mg/dL (2-149) H 08/23/18 04:08 Cholesterol 325 mg/dL (50-199) H 08/23/18 04:08 248 mg/dL (50-130) H 08/23/18 04:08 60 mg/dL (40-59) H 08/23/18 04:08 5.41 % 08/23/18 04:08 0.08 ng/mL/h (0.25-5.82) L 08/23/18 10:10 3 ng/dL () 08/23/18 10:10 Aldosterone/Renin Dir 37.5 Ratio (0.9-28.9) H 08/23/18 10:10 Vitamin B12 838.9 pg/mL (211-911) 09/13/18 11:35 12.99 ng/mL (7.3-26.0) 09/13/18 11:35 [place] (Yellow) 08/22/18 19:45 Cloudy (Clear) 08/22/18 19:45 6.0 (5.0-7.0) 08/22/18 19:45 Ur Specific [place] 1.024 (1.003-1.030) 08/22/18 19:45 >500 mg/dL (Negative) 08/22/18 19:45 150 mg/dL (Negative) 08/22/18 19:45 Neg mg/dL (Negative) 08/22/18 19:45 Sm (Negative) 08/22/18 19:45 Neg (Negative) 08/22/18 19:45 Neg (Negative) 08/22/18 19:45 < 2.0 mg/dL (<2.0) 08/22/18 19:45 Ur Leukocyte Esterase Tr (Negative) 08/22/18 19:45 42.0 /HPF (0.0-6.0) H 07/15/19 19:45 11.0 /HPF (0.0-6.0) 08/22/18 19:45 U Epithel Cells (Auto) 4.0 /HPF (0-13.0) 08/22/18 19:45 4+ /HPF (Negative) 08/22/18 19:45 Hyaline Casts 7 /LPF 08/22/18 19:45 1+ /HPF 08/22/18 19:45 Immunofix Electrophor see below 09/13/18 11:35 Active Medications - Current Medications Current Medications: Generic Name Dose Route Start Last Admin Trade Name Freq PRN Reason Stop Dose Admin Acetaminophen 650 mg 08/22/18 23:50 09/07/18 20:34 Tylenol PO 650 mg Q4H PRN Administration Pain MILD(1-3)/Fever >100.5/CARTER Aspirin 81 mg 08/24/18 10:00 09/20/18 09:16 Baby Aspirin PO 81 mg DAILY NASH Administration Carvedilol 25 mg 08/25/18 22:00 09/20/18 22:48 Coreg PO 25 mg BID NASH Administration Dextrose 50 ml 08/22/18 23:50 D50w (25gm) Syringe IV PRN PRN Hypoglycemia Fluoxetine HCl 40 mg 08/24/18 10:00 09/20/18 09:16 Prozac PO 40 mg QDAY NASH Administration Heparin Sodium (Porcine) 5,000 unit 08/23/18 10:00 09/20/18 22:48 Heparin SUB-Q 5,000 unit Q12HR NASH Administration Hydralazine HCl 20 mg 09/18/18 11:22 09/18/18 16:35 Apresoline IV 20 mg Q4H PRN Administration Hypertension Hydralazine HCl 25 mg 09/21/18 14:00 Apresoline PO Q8HR NASH Insulin Human Isoph/Insulin Regular 15 unit 08/25/18 12:00 09/20/18 18:16 Humulin 70/30 SUB-Q 15 unit BIDDIAB NASH Administration Insulin Human Lispro 0 unit 09/05/18 13:00 09/21/18 08:17 Humalog SUB-Q Not Given ACHS [facility] Protocol Levetiracetam 1,000 mg 08/27/18 10:00 09/20/18 22:48 Keppra PO 1,000 mg BID NASH Administration Lorazepam 1 mg 08/23/18 01:58 09/14/18 21:38 Ativan IV 1 mg Q4H PRN Administration Seizures Minoxidil 5 mg 09/18/18 12:00 09/20/18 22:48 Loniten PO 5 mg BID NASH Administration Nifedipine 60 mg 09/20/18 11:00 09/20/18 13:14 Procardia Xl PO 60 mg QDAY NASH Administration Olanzapine 2.5 mg 08/24/18 10:00 09/20/18 09:19 Zyprexa PO 2.5 mg DAILY NASH Administration Ondansetron HCl 4 mg 08/22/18 23:50 09/20/18 00:04 Zofran IV 4 mg Q8H PRN Administration Nausea And Vomiting Sodium Chloride 10 ml 08/22/18 23:50 09/20/18 22:49 Sodium Chloride Flush Syringe 10 Ml IV 10 ml BID NASH Administration Sodium Chloride 10 ml 08/23/18 00:12 Sodium Chloride Flush Syringe 10 Ml IV PRN PRN LINE FLUSH Nutrition/Malnutrition Assess - Dietary Evaluation Nutrition/Malnutrition Findings: Nutrition Notes Start: 08/23/18 15:56 Freq: Status: Active Protocol: Document 09/19/18 13:45 OH (Rec: 09/19/18 13:53 OH [id number]) Nutrition Notes Initial or Follow up Reassessment Current Diagnosis Acute Kidney Injury,CKD(stage I-IV),Coronary Artery Disease, Diabetes,Sepsis,Hypertension, Hyperlipidemia Other Pertinent Diagnosis PVD, Hx endometrial CA, Seizures, AKA Current Diet Renal w/Nepro 1 daily Labs/Tests Reviewed Pertinent Medications Reviewed Height 5 ft Weight 56.3 kg [place] Body Weight (kg) 45.45 BMI 24.2 Subjective/Other Information Pt. sitting up in bed. Pt. answering questions but appears confused. Pt. resides at senior living. Awaiting d/c back to SNF once isolation bed available. Percent of energy/protein needs met: 75/75% Burn Absent Trauma Absent #1 Diagnosis Progress(for reassessment Continues documentation) Is patient on ventilator? No Is Patient Ambulatory and/or Out of Bed No REE-([facility]-confined to bed) 6466.872 Calculation Used for Recommendations Kcal/kg Additional Notes Protein Needs: 54-67g (0.8-1g/ kg 67kg adjBW) Fluid Needs: 1 ml/kcal Nutrition Intervention Change Diet Order: Renal Add Supplement/Snack (indicate name/kcal Nepro 1 daily /protein ) Provides kCal: 425 Provides Protein (gm) 19 Goal #1 Continue to meet at least 75% of calorie and protein needs via PO and ONS intakes Anticipated Discharge Needs: Renal diet Revisit per MD consult or patient Sign Off request:
[2018-09-21] MEDS: APRESOLINE PO SCH ×3 (09:18→22:00)
[2018-09-21] MEDS: COREG PO SCH ×2 (11:42→22:00)
[2018-09-21] MEDS: KEPPRA PO SCH ×2 (11:42→22:00)
[2018-09-21] MEDS: BABY ASPIRIN PO SCH (11:43)
[2018-09-21] MEDS: LONITEN PO SCH ×2 (11:43→22:00)
[2018-09-21] MEDS: PROzac PO SCH (11:43)
[2018-09-21] MEDS: HEPARIN SUB-Q SCH ×2 (11:46→22:00)
[2018-09-21] MEDS: SODIUM CHLORIDE FLUSH SYRINGE 10 ML IV SCH ×2 (11:51→22:01)
[2018-09-21] MEDS: PROCARDIA XL PO SCH (11:56)
[2018-09-21] MEDS ORDERED: MILK OF MAGNESIA PO PRN (13:04)
[2018-09-21] MEDS ORDERED: DULCOLAX PO PRN (13:06)
[2018-09-21] MEDS ORDERED: MILK OF MAGNESIA PO ONE (14:00)
[2018-09-21] MEDS ORDERED: DULCOLAX PR ONE (14:00)
--- NOTE | 2018-09-21 15:25 | Progress Note ---
Assessment and Plan Impression * Nonoliguric acute kidney injury secondary to prerenal azotemia on stage III CKD --Baseline SCr 1.4-1.7mg/dL * ESBL Ecoli UTI * Hyperkalemia * Hypertension * Type II DM * Metabolic acidosis * Seizure disorder * History of endometrial cancer * Depression * Bradycardia, iatrogenic - resolved Recommendation * SCr elevated above baseline but stable * Continue to hold Lasix * BP control improved - continue current medications * Encourage po hydration * Renal diet * Abx per primary team * Glycemic control per primary team * Avoid nephrotoxins * Dose medications for renal function * Discharge planning in progress Subjective Date of service: 09/21/18 Principal diagnosis: UTI Interval history: Patient has no complaints today Objective - Vital Signs Vital signs: Vital Signs - 12hr 09/21/18 09/21/18 09/21/18 03:54 04:34 09:14 Temperature 98.7 F 98.7 F Pulse Rate 80 80 Respiratory 24 24 Rate Blood Pressure 189/65 129/35 Blood Pressure 189/65 [Right] O2 Sat by Pulse 90 90 Oximetry 09/21/18 09/21/18 09/21/18 09:15 09:18 11:25 Temperature Pulse Rate Respiratory Rate Blood Pressure 153/41 153/41 157/64 Blood Pressure [Right] O2 Sat by Pulse Oximetry 09/21/18 09/21/18 11:30 11:42 Temperature 97.9 F Pulse Rate Respiratory Rate Blood Pressure 157/64 Blood Pressure [Right] O2 Sat by Pulse Oximetry - General Appearance General appearance: well-developed, well-nourished EENT: ATNC Respiratory: Present: Clear to Ascultation Cardiology: regular, S1S2 Gastrointestinal: normal, no tenderness, no distended Integumentary: no rash, warm and dry Musculoskeletal: other (Trace RLE edema) Psychiatric: cooperative - Lab 09/19/18 07:27 09/21/18 06:00 Most recent lab results Calcium 8.6 mg/dL (8.4-10.2) 09/21/18 06:00 Phosphorus 3.70 mg/dL (2.5-4.5) 08/23/18 09:05 Magnesium 1.90 mg/dL (1.7-2.3) 08/28/18 13:05 Medications & Allergies - Medications Allergies/Adverse Reactions: Allergies No Known Allergies Allergy (Unverified 06/05/17 13:30) Home Medications: Home Medications Medication Instructions Recorded Confirmed Last Taken Type Aspirin 81 mg PO DAILY 11/14/17 08/22/18 Unknown History Megestrol Acetate 800 mg PO DAILY 11/14/17 08/22/18 Unknown History OLANZapine [Zyprexa] 2.5 mg PO DAILY 11/14/17 08/22/18 Unknown History FLUoxetine [PROzac] 40 mg PO QDAY #30 capsule 11/26/17 08/22/18 Unknown Rx Ferrous Sulfate [Ferrous Sulfate 300 mg PO QDAY #30 oral.liqd 11/26/17 08/22/18 Unknown Rx Oral Liq 300 Mg/5 Ml] Pantoprazole [Protonix TAB] 40 mg PO QDAY #30 tablet 11/26/17 08/22/18 Unknown Rx amLODIPine [Norvasc] 10 mg PO DAILY #30 tablet 11/26/17 08/22/18 Unknown Rx Carvedilol [Coreg] 25 mg PO BID tablet 12/06/17 08/22/18 Unknown Rx cloNIDine [Catapres] 0.1 mg PO Q8H tablet 12/06/17 08/22/18 Unknown Rx traMADol [Ultram 50 MG tab] 50 mg PO Q12HR PRN #20 tablet 12/06/17 08/22/18 Unknown Rx Acetaminophen 325 mg PO Q6H PRN 12/22/17 08/22/18 Unknown History Glucagon HCl 1 mg IM ONCE PRN 12/22/17 08/22/18 Unknown History Klor-Con 10 10 meq PO DAILY 12/22/17 08/22/18 Unknown History Lispro Insulin [HumaLOG] See Protocol [place] ACHS 12/22/17 08/22/18 Unknown History Simethicone 80 mg PO Q8H PRN 12/22/17 08/22/18 Unknown History levETIRAcetam [Keppra ORAL LIQ] 750 mg PO BID 30 Days bottle 01/04/18 08/22/18 Unknown Rx Active Medications: Generic Name Dose Route Start Last Admin Trade Name Freq PRN Reason Stop Dose Admin Acetaminophen 650 mg 08/22/18 23:50 09/07/18 20:34 Tylenol PO 650 mg Q4H PRN Administration Pain MILD(1-3)/Fever >100.5/CARTER Aspirin 81 mg 08/24/18 10:00 09/21/18 11:43 Baby Aspirin PO 81 mg DAILY NASH Administration Bisacodyl 10 mg 09/21/18 13:06 Dulcolax PO QDAY PRN Constipation Carvedilol 25 mg 08/25/18 22:00 09/21/18 11:42 Coreg PO 25 mg BID NASH Administration Dextrose 50 ml 08/22/18 23:50 D50w (25gm) Syringe IV PRN PRN Hypoglycemia Fluoxetine HCl 40 mg 08/24/18 10:00 09/21/18 11:43 Prozac PO 40 mg QDAY NASH Administration Heparin Sodium (Porcine) 5,000 unit 08/23/18 10:00 09/21/18 11:46 Heparin SUB-Q 5,000 unit Q12HR NASH Administration Hydralazine HCl 20 mg 09/18/18 11:22 09/18/18 16:35 Apresoline IV 20 mg Q4H PRN Administration Hypertension Hydralazine HCl 25 mg 09/21/18 08:30 09/21/18 09:18 Apresoline PO 25 mg Q8HR NASH Administration Insulin Human Isoph/Insulin Regular 15 unit 08/25/18 12:00 09/21/18 09:31 Humulin 70/30 SUB-Q 15 unit BIDDIAB NASH Administration Insulin Human Lispro 0 unit 09/05/18 13:00 09/21/18 08:17 Humalog SUB-Q Not Given ACHS [facility] Protocol Levetiracetam 1,000 mg 08/27/18 10:00 09/21/18 11:42 Keppra PO 1,000 mg BID NASH Administration Lorazepam 1 mg 08/23/18 01:58 09/14/18 21:38 Ativan IV 1 mg Q4H PRN Administration Seizures Magnesium Hydroxide 30 ml 09/21/18 13:04 Milk Of Magnesia PO QDAY PRN Constipation Minoxidil 5 mg 09/18/18 12:00 09/21/18 11:43 Loniten PO 5 mg BID NASH Administration Nifedipine 60 mg 09/20/18 11:00 09/21/18 11:56 Procardia Xl PO 60 mg QDAY NASH Administration Olanzapine 2.5 mg 08/24/18 10:00 09/21/18 11:43 Zyprexa PO 2.5 mg DAILY NASH Administration Ondansetron HCl 4 mg 08/22/18 23:50 09/20/18 00:04 Zofran IV 4 mg Q8H PRN Administration Nausea And Vomiting Sodium Chloride 10 ml 08/22/18 23:50 09/21/18 11:51 Sodium Chloride Flush Syringe 10 Ml IV 10 ml BID NASH Administration Sodium Chloride 10 ml 08/23/18 00:12 Sodium Chloride Flush Syringe 10 Ml IV PRN PRN LINE FLUSH
[2018-09-22] MEDS: APRESOLINE PO SCH ×2 (06:18→14:03)
[2018-09-22 07:44] LABS: Calcium 8.6 mg/dL (8.4-10.2)
[2018-09-22] MEDS: HumaLOG SUB-Q SCH ×2 (08:00→14:02)
--- NOTE | 2018-09-22 08:43 | Progress Note ---
Assessment and Plan Assessment and plan: --Constipation; resolved Patient had bowel movement with milk of magnesia, Dulcolax suppository Advised patient to intake fluids --Hypertensive Emergency: Present on admission. Patient's blood pressures are on the higher range Continue current antihypertensives, we'll add hydralazine 25 mg 3 times a day Closely monitor --Hyperkalemia; corrected, monitor electrolytes --CLINT on CKD 3: Vasomotor nephropathy continue to monitor renal function, avoid nephrotoxins, Gentle hydration as needed, nephrology following --Sepsis secondary to UTI /ESBL;present on admission Completed total 4 days of Meropenem,per ID , contact isolation ID adv to continue contact isolation upon DC [no isolation room available available at [facility]] --Status epilepticus: On admission No new episodes of seizure, Seizure precautions,on keppra 1000mg bid Ativan when necessary, neurology evaluated the patient. --Metabolic encephalopathy; present on admission; resolved --Moderate to severe malnutrition: Nutrition supplements, dietitian evaluated --Severe debility; PT evaluated, poor rehabilitation potential --Insulin-dependent diabetes; Accu-Chek sliding scale coverage and ADA diet Long-acting insulin,hemoglobin A1c 8.3 --History of left AKA: Supportive care --History of endometrial cancer status post hysterectomy,stable --History of major depression; continue current antidepression medications --Dyslipidemia; stable on lipid-lowering medicine, low-cholesterol diet --DVT Prophylaxis; Lovenox Patient is medically stable for discharge Disposition ;Pt will return to SNF when isolation room is available Hospitalist Physical - Constitutional Vitals: Temp Pulse Resp BP Pulse Ox 98.8 F 69 18 137/47 99 09/22/18 04:36 09/22/18 06:17 09/22/18 06:17 09/22/18 06:17 09/22/18 06:17 General appearance: Present: no acute distress, well-nourished Results - Labs CBC & Chem 7: 09/19/18 07:27 09/22/18 07:14 Labs: Laboratory Last Values WBC 8.4 K/mm3 (4.5-11.0) 09/19/18 07:27 RBC 2.88 M/mm3 (3.65-5.03) L 09/19/18 07:27 Hgb 8.5 gm/dl (10.1-14.3) L 09/19/18 07:27 Hct 25.8 % (30.3-42.9) L 09/19/18 07:27 MCV 90 fl (79-97) 09/19/18 07:27 MCH 29 pg (28-32) 09/19/18 07:27 MCHC 33 % (30-34) 09/19/18 07:27 RDW 17.1 % (13.2-15.2) H 09/19/18 07:27 Plt Count 293 K/mm3 (140-440) 09/19/18 07:27 Lymph % (Auto) 21.9 % (13.4-35.0) 09/19/18 07:27 [place] % (Auto) 7.7 % (0.0-7.3) H 09/19/18 07:27 Eos % (Auto) 1.8 % (0.0-4.3) 09/19/18 07:27 Baso % (Auto) 1.3 % (0.0-1.8) 09/19/18 07:27 Lymph # 1.8 K/mm3 (1.2-5.4) 09/19/18 07:27 [place] # 0.7 K/mm3 (0.0-0.8) 09/19/18 07:27 Eos # 0.2 K/mm3 (0.0-0.4) 09/19/18 07:27 Baso # 0.1 K/mm3 (0.0-0.1) 09/19/18 07:27 Add Manual Diff TNR 09/19/18 04:48 Total Counted 100 08/30/18 05:24 Seg Neutrophils % 67.3 % (40.0-70.0) 09/19/18 07:27 Seg Neuts % (Manual) 69.0 % (40.0-70.0) 08/30/18 05:24 2.0 % 08/30/18 05:24 14.0 % (13.4-35.0) 08/30/18 05:24 Reactive Lymphs % (Man) 0 % 08/30/18 05:24 13.0 % (0.0-7.3) H 08/30/18 05:24 2.0 % (0.0-4.3) 08/30/18 05:24 0 % (0.0-1.8) 08/30/18 05:24 0 % 08/30/18 05:24 0 % 08/30/18 05:24 0 % 08/30/18 05:24 0 % 08/30/18 05:24 Nucleated RBC % Not Reportable 08/30/18 05:24 Seg Neutrophils # 5.7 K/mm3 (1.8-7.7) 09/19/18 07:27 Seg Neutrophils # Man 6.1 K/mm3 (1.8-7.7) 08/30/18 05:24 Band Neutrophils # 0.2 K/mm3 08/30/18 05:24 1.2 K/mm3 (1.2-5.4) 08/30/18 05:24 Abs React Lymphs (Man) 0.0 K/mm3 08/30/18 05:24 1.2 K/mm3 (0.0-0.8) H 08/30/18 05:24 0.2 K/mm3 (0.0-0.4) 08/30/18 05:24 0.0 K/mm3 (0.0-0.1) 08/30/18 05:24 0.0 K/mm3 08/30/18 05:24 0.0 K/mm3 08/30/18 05:24 0.0 K/mm3 08/30/18 05:24 Blast Cells # 0.0 K/mm3 08/30/18 05:24 WBC Morphology Not Reportable 08/30/18 05:24 Hypersegmented Neuts Not Reportable 08/30/18 05:24 Hyposegmented Neuts Not Reportable 08/30/18 05:24 Hypogranular Neuts Not Reportable 08/30/18 05:24 Not Reportable 08/30/18 05:24 Not Reportable 08/30/18 05:24 Not Reportable 08/30/18 05:24 Not Reportable 08/30/18 05:24 Not Reportable 08/30/18 05:24 Not Reportable 08/30/18 05:24 Consistent w auto 08/30/18 05:24 Not Reportable 08/30/18 05:24 Plt Clumps, EDTA Not Reportable 08/30/18 05:24 Not Reportable 08/30/18 05:24 Not Reportable 08/30/18 05:24 Not Reportable 08/30/18 05:24 Plt Morphology Comment Not Reportable 08/30/18 05:24 RBC Morphology Not Reportable 08/30/18 05:24 Dimorphic RBCs Not Reportable 08/30/18 05:24 Not Reportable 08/30/18 05:24 Not Reportable 08/30/18 05:24 Not Reportable 08/30/18 05:24 Not Reportable 08/30/18 05:24 Not Reportable 08/30/18 05:24 Few 08/30/18 05:24 Not Reportable 08/30/18 05:24 Not Reportable 08/30/18 05:24 Not Reportable 08/30/18 05:24 Not Reportable 08/30/18 05:24 Not Reportable 08/30/18 05:24 Not Reportable 08/30/18 05:24 Not Reportable 08/30/18 05:24 Not Reportable 08/30/18 05:24 Not Reportable 08/30/18 05:24 Not Reportable 08/30/18 05:24 Not Reportable 08/30/18 05:24 Not Reportable 08/30/18 05:24 Not Reportable 08/30/18 05:24 Acanthocytes (Spur) Not Reportable 08/30/18 05:24 Rouleaux Not Reportable 08/30/18 05:24 Not Reportable 08/30/18 05:24 Not Reportable 08/30/18 05:24 Not Reportable 08/30/18 05:24 Percent Retic 2.29 % (0.78-2.58) 09/13/18 05:25 Not Reportable 08/30/18 05:24 Hem Pathologist Commnt No 08/30/18 05:24 Sodium 139 mmol/L (137-145) 09/22/18 07:14 Potassium 4.3 mmol/L (3.6-5.0) 09/22/18 07:14 Chloride 103.5 mmol/L (98-107) 09/22/18 07:14 Carbon Dioxide 27 mmol/L (22-30) 09/22/18 07:14 13 mmol/L 09/22/18 07:14 BUN 47 mg/dL (7-17) H 09/22/18 07:14 2.2 mg/dL (0.7-1.2) H 09/22/18 07:14 Estimated GFR 27 ml/min 09/22/18 07:14 21 % 09/22/18 07:14 Glucose 79 mg/dL (65-100) 09/22/18 07:14 POC Glucose 77 (70-105) 09/22/18 07:41 8.3 % (4-6) H 08/23/18 01:03 313 Mosm/kg 08/23/18 10:10 Lactic Acid 0.80 mmol/L (0.7-2.0) 08/23/18 10:10 7.3 mg/dL (3.5-7.6) 09/15/18 10:50 Calcium 8.6 mg/dL (8.4-10.2) 09/22/18 07:14 Phosphorus 3.70 mg/dL (2.5-4.5) 08/23/18 09:05 Magnesium 1.90 mg/dL (1.7-2.3) 08/28/18 13:05 Iron 39 ug/dL (37-170) 09/13/18 05:25 TIBC 187 mcg/dL (250-450) L 09/13/18 05:25 % Saturation 20.86 % 09/13/18 05:25 163 mg/dl (192-382) L 09/13/18 05:25 0.30 mg/dL (0.1-1.2) 08/23/18 09:05 AST 19 units/L (5-40) 08/23/18 09:05 ALT 7 units/L (7-56) 08/23/18 09:05 93 units/L (35-129) 08/23/18 09:05 612 units/L (30-135) H 08/23/18 09:05 7.4 g/dL (6.3-8.2) 08/23/18 09:05 3.1 g/dL (3.9-5) L 08/23/18 09:05 0.7 % 08/23/18 09:05 Triglycerides 160 mg/dL (2-149) H 08/23/18 04:08 Cholesterol 325 mg/dL (50-199) H 08/23/18 04:08 248 mg/dL (50-130) H 08/23/18 04:08 60 mg/dL (40-59) H 08/23/18 04:08 5.41 % 08/23/18 04:08 0.08 ng/mL/h (0.25-5.82) L 08/23/18 10:10 3 ng/dL () 08/23/18 10:10 Aldosterone/Renin Dir 37.5 Ratio (0.9-28.9) H 08/23/18 10:10 Vitamin B12 838.9 pg/mL (211-911) 09/13/18 11:35 12.99 ng/mL (7.3-26.0) 09/13/18 11:35 Gracia (Yellow) 08/22/18 19:45 Cloudy (Clear) 08/22/18 19:45 6.0 (5.0-7.0) 08/22/18 19:45 Ur Specific Archie 1.024 (1.003-1.030) 08/22/18 19:45 >500 mg/dL (Negative) 08/22/18 19:45 150 mg/dL (Negative) 08/22/18 19:45 Neg mg/dL (Negative) 08/22/18 19:45 Sm (Negative) 08/22/18 19:45 Neg (Negative) 08/22/18 19:45 Neg (Negative) 08/22/18 19:45 < 2.0 mg/dL (<2.0) 08/22/18 19:45 Ur Leukocyte Esterase Tr (Negative) 08/22/18 19:45 42.0 /HPF (0.0-6.0) H 08/22/18 19:45 11.0 /HPF (0.0-6.0) 08/22/18 19:45 U Epithel Cells (Auto) 4.0 /HPF (0-13.0) 08/22/18 19:45 4+ /HPF (Negative) 08/22/18 19:45 Hyaline Casts 7 /LPF 08/22/18 19:45 1+ /HPF 08/22/18 19:45 Immunofix Electrophor see below 09/13/18 11:35 Active Medications - Current Medications Current Medications: Generic Name Dose Route Start Last Admin Trade Name Freq PRN Reason Stop Dose Admin Acetaminophen 650 mg 08/22/18 23:50 09/07/18 20:34 Tylenol PO 650 mg Q4H PRN Administration Pain MILD(1-3)/Fever >100.5/CARTER Aspirin 81 mg 08/24/18 10:00 09/21/18 11:43 Baby Aspirin PO 81 mg DAILY NASH Administration Bisacodyl 10 mg 09/21/18 13:06 Dulcolax PO QDAY PRN Constipation Carvedilol 25 mg 08/25/18 22:00 09/21/18 22:00 Coreg PO 25 mg BID NASH Administration Dextrose 50 ml 08/22/18 23:50 D50w (25gm) Syringe IV PRN PRN Hypoglycemia Fluoxetine HCl 40 mg 08/24/18 10:00 09/21/18 11:43 Prozac PO 40 mg QDAY NASH Administration Heparin Sodium (Porcine) 5,000 unit 08/23/18 10:00 09/21/18 22:00 Heparin SUB-Q 5,000 unit Q12HR NAHS Administration Hydralazine HCl 20 mg 09/18/18 11:22 09/18/18 16:35 Apresoline IV 20 mg Q4H PRN Administration Hypertension Hydralazine HCl 25 mg 09/21/18 08:30 09/22/18 06:18 Apresoline PO 25 mg Q8HR NASH Administration Insulin Human Isoph/Insulin Regular 15 unit 08/25/18 12:00 09/21/18 18:15 Humulin 70/30 SUB-Q 15 unit BIDDIAB NASH Administration Insulin Human Lispro 0 unit 09/05/18 13:00 09/21/18 23:34 Humalog SUB-Q 3 unit ACHS NASH Administration Protocol Levetiracetam 1,000 mg 08/27/18 10:00 09/21/18 22:00 Keppra PO 1,000 mg BID NASH Administration Lorazepam 1 mg 08/23/18 01:58 09/14/18 21:38 Ativan IV 1 mg Q4H PRN Administration Seizures Magnesium Hydroxide 30 ml 09/21/18 13:04 Milk Of Magnesia PO QDAY PRN Constipation Minoxidil 5 mg 09/18/18 12:00 09/21/18 22:00 Loniten PO 5 mg BID NASH Administration Nifedipine 60 mg 09/20/18 11:00 09/21/18 11:56 Procardia Xl PO 60 mg QDAY NASH Administration Olanzapine 2.5 mg 08/24/18 10:00 09/21/18 11:43 Zyprexa PO 2.5 mg DAILY NASH Administration Ondansetron HCl 4 mg 08/22/18 23:50 09/20/18 00:04 Zofran IV 4 mg Q8H PRN Administration Nausea And Vomiting Sodium Chloride 10 ml 08/22/18 23:50 09/21/18 22:01 Sodium Chloride Flush Syringe 10 Ml IV 10 ml BID NASH Administration Sodium Chloride 10 ml 08/23/18 00:12 Sodium Chloride Flush Syringe 10 Ml IV PRN PRN LINE FLUSH Nutrition/Malnutrition Assess - Dietary Evaluation Nutrition/Malnutrition Findings: Nutrition Notes Start: 08/23/18 15:56 Freq: Status: Active Protocol: Document 09/19/18 13:45 OH (Rec: 09/19/18 13:53 OH [id number]) Nutrition Notes Initial or Follow up Reassessment Current Diagnosis Acute Kidney Injury,CKD(stage I-IV),Coronary Artery Disease, Diabetes,Sepsis,Hypertension, Hyperlipidemia Other Pertinent Diagnosis PVD, Hx endometrial CA, Seizures, AKA Current Diet Renal w/Nepro 1 daily Labs/Tests Reviewed Pertinent Medications Reviewed Height 5 ft Weight 56.3 kg [place] Body Weight (kg) 45.45 BMI 24.2 Subjective/Other Information Pt. sitting up in bed. Pt. answering questions but appears confused. Pt. [facility]. Awaiting d/c back to SNF once isolation bed available. Percent of energy/protein needs met: 75/75% Burn Absent Trauma Absent #1 Diagnosis Progress(for reassessment Continues documentation) Is patient on ventilator? No Is Patient Ambulatory and/or Out of Bed No REE-([facility]-confined to bed) 1246.872 Calculation Used for Recommendations Kcal/kg Additional Notes Protein Needs: 54-67g (0.8-1g/ kg 67kg adjBW) Fluid Needs: 1 ml/kcal Nutrition Intervention Change Diet Order: Renal Add Supplement/Snack (indicate name/kcal Nepro 1 daily /protein ) Provides kCal: 425 Provides Protein (gm) 19 Goal #1 Continue to meet at least 75% of calorie and protein needs via PO and ONS intakes Anticipated Discharge Needs: Renal diet Revisit per MD consult or patient Sign Off request:
--- NOTE | 2018-09-22 08:50 | Progress Note ---
Assessment and Plan Impression * Nonoliguric acute kidney injury secondary to prerenal azotemia on stage III CKD --Baseline SCr 1.4-1.7mg/dL * ESBL Ecoli UTI * Hyperkalemia * Hypertension * Type II DM * Metabolic acidosis * Seizure disorder * History of endometrial cancer * Depression * Bradycardia, iatrogenic - resolved Recommendation * SCr elevated above baseline but stable * Continue to hold Lasix * Reduce Minoxidil from 5mg BID to 5mg daily * Encourage po hydration * Renal diet * Abx per primary team * Glycemic control per primary team * Avoid nephrotoxins * Dose medications for renal function * Discharge planning in progress Subjective Date of service: 09/22/18 Principal diagnosis: UTI Objective - Vital Signs Vital signs: Vital Signs - 12hr 09/21/18 09/21/18 09/22/18 21:58 23:51 00:10 Temperature 97.9 F 98.6 F Pulse Rate 81 64 64 Respiratory 18 18 18 Rate Blood Pressure 202/75 108/41 124/38 Blood Pressure [Right] O2 Sat by Pulse 98 100 99 Oximetry 09/22/18 09/22/18 09/22/18 00:53 04:36 06:17 Temperature 98.1 F 98.8 F Pulse Rate 69 69 Respiratory 18 20 18 Rate Blood Pressure 129/49 137/47 Blood Pressure 108/44 [Right] O2 Sat by Pulse 100 100 99 Oximetry - Lab 09/19/18 07:27 09/22/18 07:14 Most recent lab results Calcium 8.6 mg/dL (8.4-10.2) 09/22/18 07:14 Phosphorus 3.70 mg/dL (2.5-4.5) 08/23/18 09:05 Magnesium 1.90 mg/dL (1.7-2.3) 08/28/18 13:05 Medications & Allergies - Medications Allergies/Adverse Reactions: Allergies No Known Allergies Allergy (Unverified 06/05/17 13:30) Home Medications: Home Medications Medication Instructions Recorded Confirmed Last Taken Type Aspirin 81 mg PO DAILY 11/14/17 08/22/18 Unknown History Megestrol Acetate 800 mg PO DAILY 11/14/17 08/22/18 Unknown History OLANZapine [Zyprexa] 2.5 mg PO DAILY 11/14/17 08/22/18 Unknown History FLUoxetine [PROzac] 40 mg PO QDAY #30 capsule 11/26/17 08/22/18 Unknown Rx Ferrous Sulfate [Ferrous Sulfate 300 mg PO QDAY #30 oral.liqd 11/26/17 08/22/18 Unknown Rx Oral Liq 300 Mg/5 Ml] Pantoprazole [Protonix TAB] 40 mg PO QDAY #30 tablet 11/26/17 08/22/18 Unknown Rx amLODIPine [Norvasc] 10 mg PO DAILY #30 tablet 11/26/17 08/22/18 Unknown Rx Carvedilol [Coreg] 25 mg PO BID tablet 12/06/17 08/22/18 Unknown Rx cloNIDine [Catapres] 0.1 mg PO Q8H tablet 12/06/17 08/22/18 Unknown Rx traMADol [Ultram 50 MG tab] 50 mg PO Q12HR PRN #20 tablet 12/06/17 08/22/18 Unkn own Rx Acetaminophen 325 mg PO Q6H PRN 12/22/17 08/22/18 Unknown History Glucagon HCl 1 mg IM ONCE PRN 12/22/17 08/22/18 Unknown History Klor-Con 10 10 meq PO DAILY 12/22/17 08/22/18 Unknown History Lispro Insulin [HumaLOG] See Protocol SC ACHS 12/22/17 08/22/18 Unknown History Simethicone 80 mg PO Q8H PRN 12/22/17 08/22/18 Unknown History levETIRAcetam [Keppra ORAL LIQ] 750 mg PO BID 30 Days bottle 01/04/18 08/22/18 Unknown Rx Active Medications: Generic Name Dose Route Start Last Admin Trade Name Tobin PRN Reason Stop Dose Admin Acetaminophen 650 mg 08/22/18 23:50 09/07/18 20:34 Tylenol PO 650 mg Q4H PRN Administration Pain MILD(1-3)/Fever >100.5/CARTER Aspirin 81 mg 08/24/18 10:00 09/21/18 11:43 Baby Aspirin PO 81 mg DAILY NASH Administration Bisacodyl 10 mg 09/21/18 13:06 Dulcolax PO QDAY PRN Constipation Carvedilol 25 mg 08/25/18 22:00 09/21/18 22:00 Coreg PO 25 mg BID NASH Administration Dextrose 50 ml 08/22/18 23:50 D50w (25gm) Syringe IV PRN PRN Hypoglycemia Fluoxetine HCl 40 mg 08/24/18 10:00 09/21/18 11:43 Prozac PO 40 mg QDAY NASH Administration Heparin Sodium (Porcine) 5,000 unit 08/23/18 10:00 09/21/18 22:00 Heparin SUB-Q 5,000 unit Q12HR NASH Administration Hydralazine HCl 20 mg 09/18/18 11:22 09/18/18 16:35 Apresoline IV 20 mg Q4H PRN Administration Hypertension Hydralazine HCl 25 mg 09/21/18 08:30 09/22/18 06:18 Apresoline PO 25 mg Q8HR NASH Administration Insulin Human Isoph/Insulin Regular 15 unit 08/25/18 12:00 09/21/18 18:15 Humulin 70/30 SUB-Q 15 unit BIDDIAB NASH Administration Insulin Human Lispro 0 unit 09/05/18 13:00 09/21/18 23:34 Humalog SUB-Q 3 unit ACHS NASH Administration Protocol Levetiracetam 1,000 mg 08/27/18 10:00 09/21/18 22:00 Keppra PO 1,000 mg BID NASH Administration Lorazepam 1 mg 08/23/18 01:58 09/14/18 21:38 Ativan IV 1 mg Q4H PRN Administration Seizures Magnesium Hydroxide 30 ml 09/21/18 13:04 Milk Of Magnesia PO QDAY PRN Constipation Minoxidil 5 mg 09/18/18 12:00 09/21/18 22:00 Loniten PO 5 mg BID NASH Administration Nifedipine 60 mg 09/20/18 11:00 09/21/18 11:56 Procardia Xl PO 60 mg QDAY NASH Administration Olanzapine 2.5 mg 08/24/18 10:00 09/21/18 11:43 Zyprexa PO 2.5 mg DAILY NASH Administration Ondansetron HCl 4 mg 08/22/18 23:50 09/20/18 00:04 Zofran IV 4 mg Q8H PRN Administration Nausea And Vomiting Sodium Chloride 10 ml 08/22/18 23:50 09/21/18 22:01 Sodium Chloride Flush Syringe 10 Ml IV 10 ml BID NASH Administration Sodium Chloride 10 ml 08/23/18 00:12 Sodium Chloride Flush Syringe 10 Ml IV PRN PRN LINE FLUSH
[2018-09-22] MEDS ORDERED: LONITEN PO SCH (10:00)
[2018-09-22] MEDS: PROCARDIA XL PO SCH (11:39)
[2018-09-22] MEDS: HEPARIN SUB-Q SCH (11:39)
[2018-09-22] MEDS: PROzac PO SCH (11:39)
[2018-09-22] MEDS: BABY ASPIRIN PO SCH (11:40)
[2018-09-22] MEDS: COREG PO SCH (11:40)
[2018-09-22] MEDS: KEPPRA PO SCH (11:40)
[2018-09-22] MEDS: SODIUM CHLORIDE FLUSH SYRINGE 10 ML IV SCH (11:41)
[2018-09-22 12:42] VITALS: BP 150/66
--- NOTE | 2018-09-22 13:12 | Discharge Summary ---
Providers - Providers Date of Admission: 08/22/18 23:50 Date of discharge: 09/22/18 Attending physician: ROSALVA YO 08/23/18 00:20 Consult to Physician [CONS] Routine Comment: Consulting Provider: STEPHAN SHAH Physician Instructions: Reason For Exam: CLINT, ?? Chronic Renal Failure 08/23/18 00:51 Consult to Dietitian/Nutrition [CONS] Routine Physician Instructions: Reason For Exam: Reason for Consult: Malnutrition 08/23/18 01:12 Physical Therapy Evaluation and Treat [CONS] Routine Comment: Reason For Exam: severe debility 08/23/18 01:13 Occupational Therapy Evaluate and Treat [CONS] Routine Comment: Reason For Exam: severe debility 08/23/18 01:36 Consult to Physician [CONS] Routine Comment: Consulting Provider: NILES SANTOS Physician Instructions: Reason For Exam: status epilepticus, hx seizure disorder 08/23/18 09:11 Midline [Consult to PICC Line RN] [CONS] Routine Reason For Exam: , cardene gtt Type Line:: Midline 08/23/18 15:27 Consult to Dietitian/Nutrition [CONS] Routine Physician Instructions: Assess nutrtn needs, initiate, modify, manage TF Reason For Exam: Reason for Consult: Write/Manage Tube Feeding Reason for Consult: Write/Manage Tube Feeding 08/25/18 13:19 Consult to Physician [CONS] Routine Comment: Consulting Provider: VANI YOUNG Physician Instructions: Reason For Exam: UTI/ESBL 08/26/18 13:10 Speech Therapy Evaluation and Treat [CONS] Routine Reason For Exam: swallow evaln 09/06/18 18:52 Consult to Wound/ET Nurse [CONS] Routine Reason For Exam: perineal area skin tear Primary care physician: SARY WHITE Hospitalization Condition: Stable Hospital course: --Constipation; resolved Patient had bowel movement with milk of magnesia, Dulcolax suppository Advised patient to intake fluids --Hypertensive Emergency: Present on admission. Patient's blood pressures are on the higher range Continue current antihypertensives, we'll add hydralazine 25 mg 3 times a day Closely monitor --Hyperkalemia; corrected, monitor electrolytes --CLINT on CKD 3: Vasomotor nephropathy continue to monitor renal function, avoid nephrotoxins, Gentle hydration as needed, nephrology following --Sepsis secondary to UTI /ESBL;present on admission Completed total 4 days of Meropenem,per ID , contact isolation ID adv to continue contact isolation upon DC [no isolation room available available at SNF] --Status epilepticus: On admission No new episodes of seizure, Seizure precautions,on keppra 1000mg bid Ativan when necessary, neurology evaluated the patient. --Metabolic encephalopathy; present on admission; resolved --Moderate to severe malnutrition: Nutrition supplements, dietitian evaluated --Severe debility; PT evaluated, poor rehabilitation potential --Insulin-dependent diabetes; Accu-Chek sliding scale coverage and ADA diet Long-acting insulin,hemoglobin A1c 8.3 --History of left AKA: Supportive care --History of endometrial cancer status post hysterectomy,stable --History of major depression; continue current antidepression medications --Dyslipidemia; stable on lipid-lowering medicine, low-cholesterol diet --DVT Prophylaxis; Lovenox Patient is medically stable for discharge Disposition ;Pt will return to SNF when isolation room is available Disposition: DC/[place]F [facility] Time spent for discharge: 32 min Core Measure Documentation - Palliative Care Palliative Care/ Comfort Measures: Not Applicable - Core Measures Any of the following diagnoses?: none Exam - Constitutional Vitals: Temp Pulse Resp BP Pulse Ox 98.8 F 76 22 150/66 94 09/22/18 12:07 09/22/18 12:07 09/22/18 12:07 09/22/18 12:07 09/22/18 12:07 General appearance: Present: no acute distress, well-nourished - EENT Eyes: Present: PERRL, EOM intact - Neck Neck: Present: supple, normal ROM - Respiratory Respiratory effort: normal Respiratory: bilateral: diminished, negative: rales, rhonchi, wheezing - Cardiovascular Rhythm: regular Heart Sounds: Present: S1 & S2 - Extremities Extremities: no ischemia, No edema, abnormal (left AKA) - Abdominal General gastrointestinal: Present: soft, non-tender, non-distended, normal bowel sounds - Integumentary Integumentary: Present: clear, warm - Musculoskeletal Musculoskeletal: strength equal bilaterally - Psychiatric Psychiatric: appropriate mood/affect, cooperative - Neurologic Neurologic: moves all extremities Plan Activity: advance as tolerated, fall precautions Diet: diabetic Additional Instructions: Fall precautions. Contact isolation recommended by ID[patient had ESBL UTI, completely treated] Follow up with: SARY WHITE MD [Primary Care Provider] - 3-5 Days HERON SERVIN MD [Staff Physician] - 7 Days ALEC JOHN MD [Staff Physician] - 7 Days
[2018-09-22] MEDS: TYLENOL PO PRN (14:02)
== END 2018-09-22 17:15 | DRG 871 ==
LOC: ED 17:27 → CC1 23:50 → 3A 08-24 16:00
PROVIDERS: ADMIT Internal Medicine; ATTEND Internal Medicine
PROC: 05HY33Z Insertion of Infusion Device into Upper Vein, Percutaneous Approach (ICD-10-PCS; principal; 2018-08-23)
DX: A41.51 Sepsis due to Escherichia coli [E. coli] (principal); G93.41 Metabolic encephalopathy; N17.0 Acute kidney failure with tubular necrosis; E43 Unspecified severe protein-calorie malnutrition; I16.1 Hypertensive emergency; N39.0 Urinary tract infection, site not specified; N18.3 Chronic kidney disease, stage 3 (moderate); G40.901 Epilepsy, unspecified, not intractable, with status epilepticus; K59.00 Constipation, unspecified; E87.5 Hyperkalemia; F32.9 Major depressive disorder, single episode, unspecified; E78.5 Hyperlipidemia, unspecified; I12.9 Hypertensive chronic kidney disease with stage 1 through stage 4 chronic kidney disease, or unspecified chronic kidney disease; E11.22 Type 2 diabetes mellitus with diabetic chronic kidney disease; I25.10 Atherosclerotic heart disease of native coronary artery without angina pectoris; E11.51 Type 2 diabetes mellitus with diabetic peripheral angiopathy without gangrene; K21.9 Gastro-esophageal reflux disease without esophagitis; R00.1 Bradycardia, unspecified; G89.29 Other chronic pain; F03.90 Unspecified dementia, unspecified severity, without behavioral disturbance, psychotic disturbance, mood disturbance, and anxiety; Z79.82 Long term (current) use of aspirin; Z68.31 Body mass index [BMI] 31.0-31.9, adult; Z79.4 Long term (current) use of insulin; Z89.612 Acquired absence of left leg above knee; Z90.710 Acquired absence of both cervix and uterus; Z85.89 Personal history of malignant neoplasm of other organs and systems; I25.2 Old myocardial infarction; Z79.899 Other long term (current) drug therapy
CPT/HCPCS: 36415; 70450; 71045; 74018; 76770; 80048; 80053; 80061; 81001; 82088; 82140; 82550; 82607; 82747; 82962; 83036; 83550; 83735; 83930; 84100; 84132; 84550; 85007; 85025; 85027; 85045; 86334; 87076; 87086; 87186; 93005; 93010; 93306; 94760; 95819; G0378; J0360; J0696; J0885; J1644; J1815; J1953; J2060; J2185; J2405; J2916; J7030; J7050

== ENCOUNTER 2019-12-11 14:24 | Inpatient (IN) | payer MEDICARE ==
[2019-12-11] MEDS ORDERED: SODIUM CHLORIDE 0.9% 1000 ML IV SOLN IV ONE ×2 (15:04→17:48)
--- NOTE | 2019-12-11 15:24 | Emergency Department Report ---
ED Altered Mental Status HPI - General Chief Complaint: Altered Mental Status Stated Complaint: ALTERED MENTAL STATUS/HBS Time Seen by Provider: 12/11/19 15:11 Source: EMS Mode of arrival: Wheelchair Limitations: Altered Mental Status, Physical Limitation - History of Present Illness Initial Comments: 64-year-old female, history of CVA, ESRD, hypertension, diabetes, seizure disorder, presents to ED with altered mental status x3 days. [facility] staff reported to EMS that patient is normally awake and talkative. Accu-Chek was 585. Patient was given insulin by skilled nursing staff. Upon EMS arrival, patient with O2 sats of 75% on room air. Patient tested positive for Covid 3 months ago. Patient on dialysis on a schedule. MD Complaint: altered mental status -: days(s) (3) Severity: severe Consistency of Symptoms: constant Context: diabetes - Related Data Home Medications Medication Instructions Recorded Confirmed Last Taken Aspirin 81 mg PO DAILY 11/14/17 09/17/19 Unknown Bacitracin Zinc Oint [Antibiotic 1 applicatio TP BID 04/24/19 09/17/19 Unknown Oint] Folic Acid/Vit B Complex and C 0.8 mg PO DAILY 04/24/19 09/17/19 Unknown [Renal Vitamin Tablet] Darbepoetin Jermain in Polysorbat 40 mcg SQ QWEEK 09/17/19 09/17/19 Unknown [Aranesp] Previous Rx's Medication Instructions Recorded Last Taken Type FLUoxetine [PROzac] 40 mg PO QDAY #30 capsule 11/26/17 Unknown Rx Pantoprazole [Protonix TAB] 40 mg PO QDAY #30 tablet 11/26/17 Unknown Rx carvediloL [Coreg] 25 mg PO BID tablet 12/06/17 Unknown Rx bisacodyL [Dulcolax tab] 10 mg PO QDAY PRN tablet 09/22/18 Unknown Rx levETIRAcetam [Keppra] 1,000 mg PO BID oral.liqd 09/22/18 Unknown Rx minoxidiL [Loniten] 5 mg PO QDAY tablet 09/22/18 Unknown Rx Clopidogrel [Plavix] 75 mg PO QDAY #30 tablet 02/13/19 Unknown Rx Epoetin Jermain 10,000 Unit [Procrit] 10,000 unit IV BRIAN PRN vial 09/27/19 Unknown Rx Ferrous Sulfate [Feosol 325 MG tab] 325 mg PO DAILY tablet 09/27/19 Unknown Rx Folic Acid/Vit B Comp W-C [Renal 1 cap PO QDAY capsule 09/27/19 Unknown Rx Caps] Insulin Lispro [Humalog] 0 unit SUB-Q ACHS vial 09/27/19 Unknown Rx Insulin NPH/Regular [NovoLIN 70/30] 12 unit SUB-Q BIDDIAB units 09/27/19 Unknown Rx Allergies Allergy/AdvReac Type Severity Reaction Status Date / Time No Known Allergies Allergy Unverified 06/05/17 13:30 ED Review of Systems ROS: Stated complaint: ALTERED MENTAL STATUS/HBS Other details as noted in HPI Comment: Unobtainable due to pts medical conditions ED Past Medical Hx - Past Medical History Hx Hypertension: Yes Hx Heart Attack/AMI: Yes Hx Congestive Heart Failure: No Hx Diabetes: Yes Hx Deep Vein Thrombosis: (unknown) Hx Liver Disease: No Hx Renal Disease: Yes (CKD) Hx Seizures: Yes Hx Asthma: No Hx COPD: No Hx Dementia: Yes Additional medical history: depressive disorder, anemia, hyperlipidemia insomnia, constipation, - Surgical History Hx Open Heart Surgery: Yes Hx Pacemaker: No Hx Internal Defibrillator: No Additional Surgical History: Left leg AKA - Social History Smoking Status: Never Smoker - Medications Home Medications: Home Medications Medication Instructions Recorded Confirmed Last Taken Type Aspirin 81 mg PO DAILY 11/14/17 09/17/19 Unknown History FLUoxetine [PROzac] 40 mg PO QDAY #30 capsule 11/26/17 09/17/19 Unknown Rx Pantoprazole [Protonix TAB] 40 mg PO QDAY #30 tablet 11/26/17 09/17/19 Unknown Rx carvediloL [Coreg] 25 mg PO BID tablet 12/06/17 09/17/19 Unknown Rx bisacodyL [Dulcolax tab] 10 mg PO QDAY PRN tablet 09/22/18 09/17/19 Unknown Rx levETIRAcetam [Keppra] 1,000 mg PO BID oral.liqd 09/22/18 09/17/19 Unknown Rx minoxidiL [Loniten] 5 mg PO QDAY tablet 09/22/18 09/17/19 Unknown Rx Clopidogrel [Plavix] 75 mg PO QDAY #30 tablet 02/13/19 09/17/19 Unknown Rx Bacitracin Zinc Oint [Antibiotic 1 applicatio TP BID 04/24/19 09/17/19 Unknown History Oint] Folic Acid/Vit B Complex and C 0.8 mg PO DAILY 04/24/19 09/17/19 Unknown History [Renal Vitamin Tablet] Darbepoetin Jermain in Polysorbat 40 mcg SQ QWEEK 09/17/19 09/17/19 Unknown History [Aranesp] Epoetin Jermain 10,000 Unit [Procrit] 10,000 unit IV BRIAN PRN vial 09/27/19 Unknown Rx Ferrous Sulfate [Feosol 325 MG tab] 325 mg PO DAILY tablet 09/27/19 Unknown Rx Folic Acid/Vit B Comp W-C [Renal 1 cap PO QDAY capsule 09/27/19 Unknown Rx Caps] Insulin Lispro [Humalog] 0 unit SUB-Q ACHS vial 09/27/19 Unknown Rx Insulin NPH/Regular [NovoLIN 70/30] 12 unit SUB-Q BIDDIAB units 09/27/19 Unknown Rx ED Physical Exam - General Limitations: Altered Mental Status, Physical Limitation General appearance: lethargic - Head Head exam: Present: atraumatic, normocephalic - Eye Eye exam: Present: normal appearance - ENT ENT exam: Present: mucous membranes dry - Neck Neck exam: Present: normal inspection, other (Vas cath to left upper chest w/ purulent draininge around it) - Respiratory Respiratory exam: Present: normal lung sounds bilaterally - Cardiovascular Cardiovascular Exam: Present: tachycardia - GI/Abdominal GI/Abdominal exam: Present: soft. Absent: distended - Extremities Exam Extremities exam: Present: other (Bilateral AKA's present) - Neurological Exam Neurological exam: Present: altered, other (Withdraws to pain) - Skin Skin exam: Present: warm, dry, intact, normal color ED Course Vital Signs 12/11/19 12/11/19 12/11/19 15:10 16:15 16:29 Temperature 104 F H Pulse Rate 125 H 106 H Respiratory 42 H 22 34 H Rate Blood Pressure 162/69 191/68 [Right] O2 Sat by Pulse 98 99 Oximetry 12/11/19 12/11/19 12/11/19 17:03 17:07 17:58 Temperature 99.5 F Pulse Rate 99 H Respiratory 24 42 H Rate Blood Pressure 164/70 [Right] O2 Sat by Pulse 99 98 Oximetry - Lab Data Result diagrams: 12/11/19 Unknown 12/11/19 Unknown Lab Results 12/11/19 12/11/19 12/11/19 Range/Units 15:00 15:00 15:00 PT 16.0 H (12.2-14.9) Sec. INR 1.25 H (0.87-1.13) APTT 21.0 L (24.2-36.6) Sec. VBG pH 7.413 (7.320-7.420) Sodium (137-145) mmol/L Potassium (3.6-5.0) mmol/L Chloride (98-107) mmol/L Carbon Dioxide (22-30) mmol/L Anion Gap mmol/L BUN (7-17) mg/dL Creatinine (0.6-1.2) mg/dL Estimated GFR ml/min BUN/Creatinine Ratio % Glucose (65-100) mg/dL Ketones Quantitative Moderate (Negative) Lactic Acid (0.7-2.0) mmol/L Calcium (8.4-10.2) mg/dL Phosphorus (2.5-4.5) mg/dL Magnesium (1.7-2.3) mg/dL 12/11/19 12/11/19 12/11/19 Range/Units 17:00 17:00 17:00 PT (12.2-14.9) Sec. INR (0.87-1.13) APTT (24.2-36.6) Sec. VBG pH (7.320-7.420) Sodium 142 (137-145) mmol/L Potassium 3.5 L (3.6-5.0) mmol/L Chloride 95.2 L (98-107) mmol/L Carbon Dioxide 22 (22-30) mmol/L Anion Gap 28 mmol/L BUN 67 H (7-17) mg/dL Creatinine 6.7 H (0.6-1.2) mg/dL Estimated GFR 7 ml/min BUN/Creatinine Ratio 10 % Glucose 518 H* (65-100) mg/dL Ketones Quantitative (Negative) Lactic Acid 1.80 (0.7-2.0) mmol/L Calcium 10.0 (8.4-10.2) mg/dL Phosphorus 2.70 (2.5-4.5) mg/dL Magnesium 2.20 (1.7-2.3) mg/dL - EKG Data -: EKG Interpreted by Me EKG shows normal: sinus rhythm Rate: normal Interpretation: LVH, other (incomplete LBBB) - Radiology Data Radiology results: report reviewed, image reviewed - Medical Decision Making 64-year-old female presents to ED from skilled nursing with fever of 104, altered mental status, and hyperglycemia. Per skilled nursing, patient is normally awake and talkative. Patient is currently lethargic, responds to painful stimuli. Blood pressure has been stable. Chest x-ray is negative for any acute findings. EMS reported room air sats of 75%, however here in the ED room air sats are about 90%. Patient placed on 3 L O2. Nurses unable to get any urine from patient via catheterization, patient with history of ESRD. Patient does have Vas-Cath located in the left chest that appears to have some purulent discharge. This could be the source of her fever. Blood cultures have been drawn, patient given vancomycin and cefepime. She also appears to be in DKA, with glucose of 513, anion gap of 33, bicarb of 20, with moderate serum ketones prese nt. Insulin drip has been initiated, along with IV fluids boluses. Patient will be admitted to hospitalist, Dr. Davis, for further management. - Differential Diagnosis Pneumonia, UTI, line sepsis Critical Care Time: Yes Critical care time in (mins) excluding proc time.: 35 Critical care attestation.: If time is entered above; I have spent that time in minutes in the direct care of this critically ill patient, excluding procedure time. Critical Care Time: 35 min ED Disposition Clinical Impression: Encephalopathy Sepsis Qualifiers: Sepsis type: sepsis due to unspecified organism Sepsis acute organ dysfunction status: unspecified Qualified Code(s): A41.9 - Sepsis, unspecified organism Diabetic ketoacidosis Qualifiers: Diabetes mellitus type: type 2 Diabetes mellitus complication detail: without coma Qualified Code(s): E11.10 - Type 2 diabetes mellitus with ketoacidosis without coma Disposition: OP ADMIT IP TO THIS HOSP Is pt being admited?: Yes Condition: Stable
[2019-12-11 15:33] LABS: Hemoglobin 11.9 gm/dl (10.1-14.3); Mean Corpuscular HGB Conc 31 % (30-34); Mean Corpuscular Volume 95 fl (79-97); Red Cell Distribution Width 17.1 % (13.2-15.2)
[2019-12-11 15:35] LABS: Calcium 10.7 mg/dL (8.4-10.2)
[2019-12-11 15:42] LABS: Platelet Count 87 K/mm3 (140-440)
--- NOTE | 2019-12-11 15:50 | XRay Report ---
CHEST 1 VIEW INDICATION: sepsis. COMPARISON: 09/17/2019 FINDINGS: Support devices: Left IJ dual-lumen venous catheter terminates near the cavoatrial junction. Heart: Within normal limits. Lungs/Pleura: No acute air space or interstitial disease. Bilateral pulmonary edema and small left pl eural effusion have resolved since the previous exam. Additional findings: None. IMPRESSION: No acute findings. Signer Name: Antoine Holder Jr, MD Signed: 12/11/2019 3:46 PM Workstation Name: [id number]
[2019-12-11 15:54] LABS: INR 1.25 (0.87-1.13)
--- NOTE | 2019-12-11 16:03 | Cat Scan Report ---
CT head/brain wo con INDICATION: Altered mental status. TECHNIQUE: Routine CT head without contrast. All CT scans at this location are performed using CT dos e reduction for ALARA by means of automated exposure control. COMPARISON: 04/24/2019 FINDINGS: BRAIN / INTRACRANIAL CONTENTS: No acute hemorrhage, mass effect, midline shift, or hydrocephalus. No appreciable acute large territorial or lacunar infarct. Stable remote left SACK SEWER and MCA territory infa rcts with chronic encephalomalacia and ex vacuo dilation of the left ventricle. ORBITS: No significant abnormality of visualized orbits. SINUSES / MASTOIDS: No significant abnormality of visualized sinuses and mastoid air cells. ADDITIONAL FINDINGS: None. IMPRESSION: 1. No acute intracranial abnormality. No adverse change from the prior exam. Signer Name: Tony Carlos MD Signed: 12/11/2019 3:59 PM Workstation Name: [id number]
[2019-12-11] MEDS ORDERED: ACETAMINOPHEN 650 MG RECT SUPP PR ONE (16:07)
[2019-12-11] MEDS ORDERED: VANCOMYCIN 2,000 MG in SODIUM CHLORIDE 0.9% 500 ML 500 ML IV ONE (16:24)
[2019-12-11] MEDS ORDERED: CEFEPIME/NS 2 GM/100 ML 2 GM/100 ML BAG IV ONE (16:25)
[2019-12-11] MEDS ORDERED: INSULIN REGULAR, HUMAN 100 UNITS in SODIUM CHLORIDE 0.9% 99 ML IV SCH (17:00)
--- NOTE | 2019-12-11 17:46 | History and Physical Report ---
History of Present Illness Chief complaint: she is getting worse History of present illness: 64 YO Female Custodial Facility Resident as [facility] with HTN, DM, Seizure Disorder, ESRD on HD(T,R,Sa), CVA, DE, Anemia, GERD presents to ED for evaluation. The patient is confused and lethargic and unable to provide history at the time of my evaluation. Patient history provided by EMS staff, ED staff, as well as care home facility staff. As per staff the patient was found to have increased confusion over the past 3 days as well as hypoxemia with a pulse oximetry of 70.5% on room air. EMS was notified and upon arrival the patient was found to be in distress and subsequently transported to [facility] for further care and evaluation of the aforementioned symptoms. The patient was seen and evaluated in the emergency department. All lab and imaging studies reviewed. The patient was found to have diabetic ketoacidosis, sepsis, toxic metabolic encephalopathy. Patient initiated on DKA protocol as well as sepsis protocol and admitted to ICU due to increased risk of multiorgan system failure. No further history is obtainable. Patient is confused and lethargic at the time of my evaluation but the patient has a positive gag reflex and is able to protect her airway without difficulty. Advanced care planning conducted in the emergency department. Past History Past Medical History: anemia, diabetes, ESRD, hypertension, seizures Past Surgical History: Other (Left AKA) Social history: single. denies: smoking, alcohol abuse, prescription drug abuse Family history: diabetes, hypertension Medications and Allergies Allergies Allergy/AdvReac Type Severity Reaction Status Date / Time No Known Allergies Allergy Unverified 06/05/17 13:30 Home Medications Medication Instructions Recorded Confirmed Last Taken Type Aspirin 81 mg PO DAILY 11/14/17 09/17/19 Unknown History FLUoxetine [PROzac] 40 mg PO QDAY #30 capsule 11/26/17 09/17/19 Unknown Rx Pantoprazole [Protonix TAB] 40 mg PO QDAY #30 tablet 11/26/17 09/17/19 Unknown Rx carvediloL [Coreg] 25 mg PO BID tablet 12/06/17 09/17/19 Unknown Rx bisacodyL [Dulcolax tab] 10 mg PO QDAY PRN tablet 09/22/18 09/17/19 Unknown Rx levETIRAcetam [Keppra] 1,000 mg PO BID oral.liqd 09/22/18 09/17/19 Unknown Rx minoxidiL [Loniten] 5 mg PO QDAY tablet 09/22/18 09/17/19 Unknown Rx Clopidogrel [Plavix] 75 mg PO QDAY #30 tablet 02/13/19 09/17/19 Unknown Rx Bacitracin Zinc Oint [Antibiotic 1 applicatio TP BID 04/24/19 09/17/19 Unknown History Oint] Folic Acid/Vit B Complex and C 0.8 mg PO DAILY 04/24/19 09/17/19 Unknown History [Renal Vitamin Tablet] Darbepoetin Jermain in Polysorbat 40 mcg SQ QWEEK 09/17/19 09/17/19 Unknown History [Aranesp] Epoetin Jermain 10,000 Unit [Procrit] 10,000 unit IV BRIAN PRN vial 09/27/19 Unknown Rx Ferrous Sulfate [Feosol 325 MG tab] 325 mg PO DAILY tablet 09/27/19 Unknown Rx Folic Acid/Vit B Comp W-C [Renal 1 cap PO QDAY capsule 09/27/19 Unknown Rx Caps] Insulin Lispro [Humalog] 0 unit SUB-Q ACHS vial 09/27/19 Unknown Rx Insulin NPH/Regular [NovoLIN 70/30] 12 unit SUB-Q BIDDIAB units 09/27/19 Unknown Rx Active Meds: Active Medications Vancomycin HCl 2,000 mg/ (Sodium Chloride) 540 mls @ 270 mls/hr IV ONCE ONE; Protocol Stop: 12/11/19 18:23 Last Admin: 12/11/19 17:32 Dose: 270 mls/hr Documented by: Insulin Human Regular 100 (units/ Sodium Chloride) 100 mls @ 1 mls/hr IV TITR NASH; Protocol Last Admin: 12/11/19 17:31 Dose: 8 units/hr, 8 mls/hr Documented by: Review of Systems ROS unobtainable: due to mental status Exam - Constitutional Vitals: Temp Pulse Resp BP Pulse Ox 99.5 F 99 H 24 164/70 99 12/11/19 17:07 12/11/19 17:03 12/11/19 17:03 12/11/19 17:03 12/11/19 17:03 General appearance: Present: mild distress - EENT Eyes: Present: PERRL ENT: hearing decreased - Neck Neck: Present: supple, normal ROM - Respiratory Respiratory effort: normal Respiratory: bilateral: CTA - Cardiovascular Rhythm: other (Tachycardia) Heart Sounds: Present: S1 & S2. Absent: rub, click - Extremities Extremities: pulses symmetrical, No edema Peripheral Pulses: abnormal (Capillary refill greater than 3.5 seconds) - Abdominal General gastrointestinal: Present: soft, non-tender, non-distended, normal bowel sounds Female genitourinary: Present: normal - Integumentary Integumentary: Present: dry, clammy, decreased turgor - Musculoskeletal Musculoskeletal: generalized weakness - Psychiatric Psychiatric: no appropriate mood/affect, no intact judgment & insight, no memory intact - Neurologic Neurologic: CNII-XII intact, no focal deficits, moves all extremities, no gait normal Results - Labs CBC & Chem 7: 12/11/19 Unknown 12/11/19 Unknown Labs: Abnormal lab results 12/11/19 12/11/19 12/11/19 Range/Units 15:00 Unknown Unknown WBC 15.4 H (4.5-11.0) K/mm3 RDW 17.1 H (13.2-15.2) % Plt Count 87 L (140-440) K/mm3 PT 16.0 H (12.2-14.9) Sec. INR 1.25 H (0.87-1.13) APTT 21.0 L (24.2-36.6) Sec. Chloride 91.6 L (98-107) mmol/L Carbon Dioxide 20 L (22-30) mmol/L BUN 65 H (7-17) mg/dL Creatinine 6.6 H (0.6-1.2) mg/dL Glucose 513 H* (65-100) mg/dL Lactic Acid (0.7-2.0) mmol/L Calcium 10.7 H (8.4-10.2) mg/dL Alkaline Phosphatase 149 H (35-129) units/L Albumin 3.0 L (3.9-5) g/dL 12/11/19 Range/Units Unknown WBC (4.5-11.0) K/mm3 RDW (13.2-15.2) % Plt Count (140-440) K/mm3 PT (12.2-14.9) Sec. INR (0.87-1.13) APTT (24.2-36.6) Sec. Chloride (98-107) mmol/L Carbon Dioxide (22-30) mmol/L BUN (7-17) mg/dL Creatinine (0.6-1.2) mg/dL Glucose (65-100) mg/dL Lactic Acid 2.40 H* (0.7-2.0) mmol/L Calcium (8.4-10.2) mg/dL Alkaline Phosphatase (35-129) units/L Albumin (3.9-5) g/dL Assessment and Plan - Patient Problems (1) Sepsis Current Visit: Yes Status: Acute Qualifiers: Sepsis type: sepsis due to unspecified organism Sepsis acute organ dysfunction status: unspecified Qualified Code(s): A41.9 - Sepsis, unspecified organism Plan to address problem: Sepsis protocol: CBC, CMP, chest x-ray, urinalysis, IV antibiotic therapy, IV fluid resuscitation therapy, monitor urine output every shift, serial lactic acid level, maintain mean arterial blood pressure greater than or equal to 65. (2) Diabetic ketoacidosis Current Visit: Yes Status: Acute Qualifiers: Diabetes mellitus complication detail: without coma Plan to address problem: Admit to ICU: DKA protocol, insulin drip, IV fluid resuscitation therapy, serial BMP, potassium repletion as per protocol, monitor anion gap, The high probability of a clinically significant, sudden or life threatening deterioration of the [cardiac, renal, endocrine, neuro] system(s) required my full and direct attention, intervention and personal management. The aggregate critical care time was [90] minutes. This time is in addition to time spent performing reported procedures but includes the following: [x] Data Review and interpretation [x] Patient assessment and monitoring of vital signs [x] Documentation [x] Medication orders and management (3) End stage renal disease Current Visit: Yes Status: Acute Plan to address problem: Nephrology consulted in ED, strict I's/O, monitor urine output every shift, dialysis as per renal team. (4) Obesity hypoventilation syndrome Current Visit: Yes Status: Acute Plan to address problem: Supplemental oxygen, pulse oximetry, noninvasive positive pressure ventilation as clinically indicated, outpatient pulmonary follow-up for sleep study. (5) Toxic metabolic encephalopathy Current Visit: Yes Status: Acute Plan to address problem: Supportive care, neuro check, seizure precaution, aspiration precautions, treat sepsis (6) DVT prophylaxis Current Visit: No Status: Acute Plan to address problem: SCD to bilateral lower extremities while in bed, prophylactic anticoagulation (7) Advance care planning Current Visit: Yes Status: Acute Plan to address problem: Disease education conducted, patient is full code, prognosis discussed, +30 minutes.
[2019-12-11] MEDS ORDERED: HYDROmorphone 1 MG/1 ML INJ IV PRN (17:48)
[2019-12-11] MEDS ORDERED: ACETAMINOPHEN 325 MG TAB PO PRN (17:48)
[2019-12-11] MEDS ORDERED: ALBUTEROL 2.5 MG/3 ML NEBU IH PRN (17:48)
[2019-12-11] MEDS ORDERED: LIDOCAINE/D5W 2 GM/500 ML (0.4%) DRIP IV ONE (19:30)
[2019-12-11] MEDS ORDERED: DOPamine/D5W 800 MG/250 ML DRIP IV ONE (19:30)
[2019-12-11] MEDS ORDERED: LIDOCAINE PF 100 MG/5 ML (CARDIAC SYRINGE) IV ONE (19:30)
[2019-12-11] MEDS ORDERED: CALCIUM CHLORIDE 1,000 MG/10 ML SYRINGE IV ONE (19:30)
[2019-12-11] MEDS ORDERED: SODIUM BICARB 8.4% 50 MEQ/50 ML SYRINGE IV ONE (19:30)
[2019-12-11] MEDS ORDERED: EPINEPHrine 1 MG/10 ML SYRINGE ONE (19:30)
[2019-12-11] MEDS ORDERED: SODIUM CHLORIDE 0.9% 1000 ML 3,000 ML ONE (19:42)
[2019-12-11 22:29] LABS: Calcium 9.5 mg/dL (8.4-10.2)
[2019-12-11] MEDS ORDERED: HEPARIN 5,000 UNIT/1 ML VIAL ONE (22:30)
[2019-12-11] MEDS: HEPARIN 5,000 UNIT/1 ML VIAL SUB-Q SCH (22:37)
[2019-12-11] MEDS: D5W/0.45% NACL/KCL 20 MEQ 20 MEQ/1,000 ML BAG IV SCH (23:23)
[2019-12-12] MEDS ORDERED: SODIUM BICARB 8.4% 50 MEQ/50 ML SYRINGE IV ONE (00:24)
[2019-12-12] MEDS ORDERED: EPINEPHrine 1 MG/10 ML SYRINGE ONE (00:24)
[2019-12-12] MEDS ORDERED: POTASSIUM CHLORIDE 10 MEQ 10 MEQ/100 ML BAG IV ONE ×2 (00:38→01:46)
[2019-12-12 00:43] LABS: Calcium 9.9 mg/dL (8.4-10.2)
[2019-12-12] MEDS: POTASSIUM CHLORIDE 10 MEQ 10 MEQ/100 ML BAG IV SCH ×2 (00:45→01:49)
[2019-12-12] MEDS ORDERED: hydrALAZINE 20 MG/1 ML INJ ONE (02:30)
[2019-12-12] MEDS ORDERED: hydrALAZINE 20 MG/1 ML INJ IV PRN (03:00)
[2019-12-12] MEDS ORDERED: CEFEPIME/NS 2 GM/100 ML 2 GM/100 ML BAG IV SCH ×2 (04:00→22:00)
[2019-12-12] MEDS ORDERED: CEFEPIME/NS 2 GM/100 ML 2 GM/100 ML BAG IV ONE (05:23)
[2019-12-12] MEDS ORDERED: ETOMIDATE 20 MG/10 ML INJ IV ONE (07:23)
[2019-12-12] MEDS ORDERED: SUCCINYLCHOLINE CHLORIDE 200 MG/10 ML INJ MDV ONE (07:23)
[2019-12-12] MEDS ORDERED: NORepinephrine/NS 4 MG-250 ML 0 MG/0 ML BAG IV ONE (07:47)
--- NOTE | 2019-12-12 07:48 | Event Note ---
EDMD intubation note/CODE BLUE note I was asked by nursing to evaluate this admitted patient being held in the ED secondary to low SPO2. Upon my entering the room the patient was found to be satting approximately 77% on 100% nonrebreather. Per nursing the patient has been nonverbal. The patient was intubated by myself using RSI and shortly afterwards the patient went into V. fib and then PEA. ACLS protocols were initiated and the hospitalist was paged. The hospitalist, Dr. Angeles, is at the bedside, the case was discussed with him and the patient left in his care to run remainder of the code Intubation note Consent was unobtainable due to patient condition Preoxygenation with 100% oxygen Patient was sedated with etomidate 10 mg IV Patient was paralyzed with succinylcholine 100 mg IV A size 7.0 mm ET tube was inserted orally on first attempt. This was confirmed with glidescope There was symmetric chest rise and bilateral breath sounds post intubation A CO2 indicator was used for confirmation and resulted in positive CO2 return Pulse oximetry post intubation was 98% ET tube was taped at 24 cm at the lips The patient tolerated the procedure well There were no complications
[2019-12-12] MEDS ORDERED: niCARdipine 50 MG in SODIUM CHLORIDE 0.9% 250ML 230 ML IV SCH (08:00)
--- NOTE | 2019-12-12 08:08 | Event Note ---
ED MD central line note Requested by hospitalist Dr. Angeles to place a central line Consent obtained Location: Right femoral The skin was prepped and draped in a sterile fashion. The skin and subcutaneous tissue was anesthetized with 1% lidocaine The needle was inserted blood was aspirated after first attempt Using the Seldinger technique a guidewire was inserted. A small incision was made and a dilator was placed. Blood return was good from all 3 ports. All ports were flushed with saline. The central venous line was secured in place with adhesive velez Sterile OpSite dressing was applied The patient tolerated the procedure well There were [no complications]
[2019-12-12] MEDS ORDERED: SODIUM CHLORIDE 0.9% 100 ML IV PRN (08:39)
[2019-12-12] MEDS ORDERED: NORepinephrine/NS 4 MG-250 ML 4 MG/250 ML BAG IV ONE (08:58)
[2019-12-12] MEDS ORDERED: NORepinephrine/NS 4 MG-250 ML 4 MG/250 ML BAG IV SCH (09:00)
[2019-12-12] MEDS ORDERED: D5W/0.45% NACL/KCL 20 MEQ 20 MEQ/1,000 ML BAG IV ONE (09:19)
[2019-12-12 09:41] LABS: Calcium 10.4 mg/dL (8.4-10.2)
--- NOTE | 2019-12-12 09:45 | XRay Report ---
CHEST 1 VIEW INDICATION / CLINICAL INFORMATION: intubation and NG tube placement. COMPARISON: 12/11/2019 FINDINGS: SUPPORT DEVICES: Interval placement of endotracheal tube which is approximately 6 cm above the estefany , satisfactory position. Dual-lumen central venous catheter is in stable position. Interval placement of gastric tube which terminates over the left upper quadrant/gastric bubble, satisfactory position. HEART / MEDIASTINUM: Stable. LUNGS / PLEURA: No significant pulmonary or pleural abnormality. No pneumothorax. ADDITIONAL FINDINGS: No significant additional findings. IMPRESSION: 1. Interval addition of endotracheal tube and gastric tube with satisfactory positioning, as above. N o acute cardiopulmonary process. Signer Name: Ramin Carballo MD Signed: 12/12/2019 9:41 AM Workstation Name: [id number]
--- NOTE | 2019-12-12 09:48 | Event Note ---
ED MD CODE BLUE note Called to room by nurses as patient has lost pulse again. On monitor patient is asystolic. ACLS protocols were initiated with eventual return of spontaneous circulation. Hospitalist notified (Dr. Angeles)
--- NOTE | 2019-12-12 10:12 | Event Note ---
Date: 12/12/19 Patient had a cardiac arrest around 10 AM perform CPR for around 5 minutes gave patient calcium, epinephrine, bicarb patient eventually was able to regain pulse.
--- NOTE | 2019-12-12 11:11 | Progress Note ---
Assessment and Plan Assessment and plan: 64 YO Female Intermediate Facility Resident as [facility] with HTN, DM, Seizure Disorder, ESRD on HD(T,R,Sa), CVA, [place], Anemia, GERD presents to ED for evaluation. The patient is confused and lethargic and unable to provide history at the time of my evaluation. Patient history provided by EMS staff, ED staff, as well as [facility] facility staff. As per staff the patient was found to have increased confusion over the past 3 days as well as hypoxemia with a pulse oximetry of 70.5% on room air. EMS was notified and upon arrival the patient was found to be in distress and subsequently transported to [facility] for further care and evaluation of the aforementioned symptoms. The patient was seen and evaluated in the emergency department. All lab and imaging studies reviewed. The patient was found to have diabetic ketoacidosis, sepsis, toxic metabolic encephalopathy. Patient initiated on DKA protocol as well as sepsis protocol and admitted to ICU due to increased risk of multiorgan system failure. No further history is obtainable. Patient is confused and lethargic at the time of my evaluation but the patient has a positive gag reflex and is able to protect her airway without difficulty. Advanced care planning conducted in the emergency department. 12/11. Patient received IV fluids for DKA yesterday. This a.m. patient was noted to be hypoxic and subsequently had a cardiac arrest with ROSC. Patient now intubated and on pressors for hypotension. Patient started on broad- spectrum antibiotics for sepsis-septic shock. Patient is on insulin drip for DKA. Pulmonology consulted for vent management and septic shock. Awaiting nephrology evaluation Patient Problems ---Shock Current Visit: Yes Status: Acute Qualifiers: Sepsis type: sepsis due to unspecified organism Sepsis acute organ dysfunction status: unspecified Qualified Code(s): A41.9 - Sepsis, unspecified organism Plan to address problem: Now has septic shock. Need to rule out other etiologies - echocardiogram, d- dimer and us doppler ordered. Continue cefepime and vancomycin Blood cultures pending Trend lactic acid. --- Diabetic ketoacidosis Current Visit: Yes Status: Acute Qualifiers: Diabetes mellitus complication detail: without coma Plan to address problem: Insulin management as per protocol BMP stat ---End stage renal disease Current Visit: Yes Status: Acute Plan to address problem: Nephrology consulted in ED, strict I's/O, monitor urine output every shift, d ialysis as per renal team. ---Obesity hypoventilation syndrome Current Visit: Yes Status: Acute Plan to address problem: Supplemental oxygen, pulse oximetry, noninvasive positive pressure ventilation as clinically indicated, outpatient pulmonary follow-up for sleep study. ---Toxic metabolic encephalopathy Current Visit: Yes Status: Acute Plan to address problem: Supportive care, neuro check, seizure precaution, aspiration precautions, treat sepsis --- DVT prophylaxis Current Visit: No Status: Acute Plan to address problem: SCD to bilateral lower extremities while in bed, prophylactic anticoagulation -- Advance care planning Current Visit: Yes Status: Acute Plan to address problem: Disease education conducted, patient is full code, prognosis discussed, +30 minutes. History Interval history: Patient seen and examined at bedside this morning. Patient reportedly had a cardiac arrest this morning and was started on ACLS protocol. Patient had regain of pulse. Patient's labs reviewed. Discussed case with patient's daughter. Nephrology consulted for dialysis. Patient still on insulin drip for DKA. Hospitalist Physical - Physical exam Narrative exam: VITAL SIGNS: Reviewed. GENERAL: Intubated HEAD: No signs of head trauma. EYES: Pupils are equal and reactive to light MOUTH: Oropharynx is normal. NECK: No adenopathy, no JVD. CHEST: Diffuse rales CARDIAC: Regular rate and rhythm. S1 and S2, without murmurs, gallops, or rubs. VASCULAR: Bilateral AKA ABDOMEN: Soft, non tender and non distended. No rebound or guarding, and no masses palpated. Bowel Sounds normal. MUSCULOSKELETAL: Extremities without clubbing, cyanosis or edema. NEUROLOGIC EXAM: Intubated PSYCHIATRIC: Not evaluated due to mental status SKIN: No obvious lesions - Constitutional Vitals: Temp Pulse Resp BP Pulse Ox 98.6 F 81 30 H 76/40 99 12/11/19 23:00 12/12/19 09:00 12/12/19 09:00 12/12/19 09:00 12/12/19 09:00 Results - Labs CBC & Chem 7: 12/12/19 Unknown 12/12/19 Unknown Labs: Laboratory Last Values WBC 15.4 K/mm3 (4.5-11.0) H 12/11/19 Unknown RBC 4.00 M/mm3 (3.65-5.03) 12/11/19 Unknown Hgb 11.9 gm/dl (10.1-14.3) 12/11/19 Unknown Hct 38.0 % (30.3-42.9) 12/11/19 Unknown MCV 95 fl (79-97) 12/11/19 Unknown MCH 30 pg (28-32) 12/11/19 Unknown MCHC 31 % (30-34) 12/11/19 Unknown RDW 17.1 % (13.2-15.2) H 12/11/19 Unknown Plt Count 87 K/mm3 (140-440) L 12/11/19 Unknown Lymph % (Auto) [employer] 12/11/19 Unknown [place] % (Auto) [employer] 12/11/19 Unknown Eos % (Auto) [employer] 12/11/19 Unknown Baso % (Auto) [employer] 12/11/19 Unknown Lymph # (Auto) [employer] 12/11/19 Unknown [place] # (Auto) [employer] 12/11/19 Unknown Eos # (Auto) [employer] 12/11/19 Unknown Baso # (Auto) [employer] 12/11/19 Unknown Seg Neutrophils % [employer] 12/11/19 Unknown Seg Neutrophils # [employer] 12/11/19 Unknown PT 16.0 Sec. (12.2-14.9) H 12/11/19 15:00 INR 1.25 (0.87-1.13) H 12/11/19 15:00 APTT 21.0 Sec. (24.2-36.6) L 12/11/19 15:00 VBG pH 7.413 (7.320-7.420) 12/11/19 15:00 Sodium 144 mmol/L (137-145) 12/12/19 Unknown Potassium 4.3 mmol/L (3.6-5.0) 12/12/19 Unknown Chloride 104.1 mmol/L (98-107) 12/12/19 Unknown Carbon Dioxide 18 mmol/L (22-30) L 12/12/19 Unknown Anion Gap 26 mmol/L 12/12/19 Unknown BUN 65 mg/dL (7-17) H 12/12/19 Unknown Creatinine 6.4 mg/dL (0.6-1.2) H 12/12/19 Unknown Estimated GFR 8 ml/min 12/12/19 Unknown BUN/Creatinine Ratio 10 % 12/12/19 Unknown Glucose 260 mg/dL (65-100) H 12/12/19 Unknown POC Glucose 197 mg/dL (70-105) H 12/12/19 11:05 Ketones Quantitative Moderate (Negative) 12/11/19 15:00 Lactic Acid 7.70 mmol/L (0.7-2.0) H* 12/12/19 Unknown Calcium 10.4 mg/dL (8.4-10.2) H 12/12/19 Unknown Phosphorus 2.70 mg/dL (2.5-4.5) 12/11/19 17:00 Magnesium 2.20 mg/dL (1.7-2.3) 12/11/19 17:00 Total Bilirubin 1.20 mg/dL (0.1-1.2) 12/11/19 Unknown AST 10 units/L (5-40) 12/11/19 Unknown ALT 7 units/L (7-56) 12/11/19 Unknown Alkaline Phosphatase 149 units/L (35-129) H 12/11/19 Unknown Total Protein 8.1 g/dL (6.3-8.2) 12/11/19 Unknown Albumin 3.0 g/dL (3.9-5) L 12/11/19 Unknown Albumin/Globulin Ratio 0.6 % 12/11/19 Unknown Microbiology: Microbiology 12/11/19 15:00 Peripheral/Venous Blood Culture - Preliminary 12/11/19 15:00 Peripheral/Venous Blood Culture - Preliminary Kohler/IV: IV Catheter Type [Left Wrist] INT / Saline Lock IV Catheter Type [Left INT / Saline Lock Antecubital] IV Catheter Type [Right Wrist] INT / Saline Lock IV Catheter Type [Left Chest] VAS Cath Active Medications - Current Medications Current Medications: Generic Name Dose Route Start Last Admin Trade Name Freq PRN Reason Stop Dose Admin Acetaminophen 650 mg 12/11/19 17:48 Tylenol PO Q6H PRN Pain, Mild (1-3) Albuterol 2.5 mg 12/11/19 17:48 Proventil IH Q3HRT PRN Shortness Of Breath Heparin Sodium (Porcine) 5,000 unit 12/11/19 22:00 12/11/19 22:37 Heparin SUB-Q 5,000 unit Q12HR NASH Administration Hydralazine HCl 10 mg 12/12/19 03:00 12/12/19 02:33 Apresoline IV 10 mg Q6H PRN Administration Hypertension Hydromorphone HCl 0.25 mg 12/11/19 17:48 Dilaudid IV Q4H PRN Pain, Moderate (4-6) Insulin Human Regular 100 100 mls @ 1 mls/hr 12/11/19 17:00 12/12/19 06:28 units/ Sodium Chloride IV 2 units/hr TITR NASH 2 mls/hr Titration Protocol 1 UNITS/HR Potassium Chloride/Dextrose/Sod Cl 20 meq in 1,000 mls @ 125 mls/hr 12/11/19 23:45 12/12/19 05:32 D5w/0.45% Nacl/Kcl 20 Meq IV 0 mls/hr DIRECT NASH Infusion Cefepime HCl 2 gm in 100 mls @ 200 mls/hr 12/12/19 22:00 Cefepime/Ns 2 Gm/100 Ml IV Q24H NASH Protocol Norepinephrine 4 mg in 250 mls @ 7.5 mls/hr 12/12/19 09:00 Levophed Drip 4 Mg/Ns 250 Ml IV TITR NASH Protocol 2 MCG/MIN Sodium Chloride 100 mls @ 999 mls/hr 12/12/19 08:39 Nacl 0.9% IV BRIAN PRN Hypotension Dopamine HCl/Dextrose 800 mg in 250 mls @ 3.657 mls/hr 12/12/19 12:00 Intropin Drip 800 Mg/D5w 250 Ml IV TITR NASH Protocol 2 MCG/KG/MIN Sodium Chloride 10 ml 12/11/19 22:00 12/11/19 22:41 Sodium Chloride Flush Syringe 10 Ml IV 10 ml BID NASH Administration Sodium Chloride 10 ml 12/11/19 17:48 Sodium Chloride Flush Syringe 10 Ml IV PRN PRN LINE FLUSH
[2019-12-12] MEDS: HEPARIN 5,000 UNIT/1 ML VIAL SUB-Q SCH (11:30)
[2019-12-12] MEDS: D5W/0.45% NACL/KCL 20 MEQ 20 MEQ/1,000 ML BAG IV SCH (11:32)
[2019-12-12] MEDS ORDERED: VANCOMYCIN PHARMACY TO DOSE IV SCH (12:00)
[2019-12-12] MEDS ORDERED: DOPamine/D5W 800 MG/250 ML 800 MG/250 ML BAG IV SCH (12:00)
[2019-12-12 12:35] LABS: Hepatitis B Surface Antigen Non-Reactive (Negative); Hepatitis C Virus Antibody Non-Reactive (NonReactive)
[2019-12-12 12:36] LABS: Hematocrit 35.1 % (30.3-42.9); Hemoglobin 11.2 gm/dl (10.1-14.3); Mean Corpuscular HGB Conc 32 % (30-34); Mean Corpuscular Volume 94 fl (79-97); Red Blood Count 3.73 M/mm3 (3.65-5.03); Red Cell Distribution Width 17.2 % (13.2-15.2)
[2019-12-12 12:58] LABS: Albumin 2.5 g/dL (3.9-5); Calcium 11.1 mg/dL (8.4-10.2)
[2019-12-12 13:15] LABS: Anisocytosis 1+; Basophils % (Manual) 0 % (0.0-1.8); Eosinophils % (Manual) 0 % (0.0-4.3); Giant Platelets Few; Myelocytes # (Manual) 0.2 K/mm3; Platelet Estimate Consistent w Auto; Total Cells Counted 100
[2019-12-12 13:16] LABS: Burr Cells Few
[2019-12-12 14:01] VITALS: BP 139/65
--- NOTE | 2019-12-12 14:17 | Vascular Lab Report ---
DUPLEX DOPPLER LOWER EXTREMITY VEINS, BILATERAL INDICATION: DVT. TECHNIQUE: Duplex doppler imaging was performed through the veins of both lower extremities using ve nous compression and other maneuvers. COMPARISON: No relevant prior imaging study available. FINDINGS: Right Common femoral vein: Negative. Right Superficial femoral vein: Negative. Right Popliteal vein: Negative. Right Calf veins: Negative. Left Common femoral vein: Negative. Left Superficial femoral vein: Negative. Left Popliteal vein: Negative. Left Calf veins: Negative. Additional findings: None. IMPRESSION: No sonographic evidence for DVT in either lower extremity. Signer Name: Antoine Holder Jr, MD Signed: 12/12/2019 2:13 PM Workstation Name: [id number]
[2019-12-12 14:38] LABS: Platelet Count 135 K/mm3 (140-440)
--- NOTE | 2019-12-12 15:21 | Consultation ---
History of Present Illness - Reason for Consult Consult date: 12/12/19 end stage renal disease - History of Present Illness 64 year old woman with HTN, DM, Seizure Disorder, ESRD on HD(T,R,Sa), CVA, [place], Anemia, GERD presented with confusion, lethargy on 12/11/2019, has been in ED with multiple cardiac arrests with ROSC, hypotension, respiratory failure, septic shock. Also noted to be in DKA. Discussed with family outside of room. Unsure of usual supervising broker, but did discuss renal prognosis. Past History Past Medical History: anemia, diabetes, ESRD, hypertension, seizures Past Surgical History: Other (Left AKA) Social history: single. denies: smoking, alcohol abuse, prescription drug abuse Family history: diabetes, hypertension Medications and Allergies Allergies Allergy/AdvReac Type Severity Reaction Status Date / Time No Known Allergies Allergy Unverified 06/05/17 13:30 Home Medications Medication Instructions Recorded Confirmed Last Taken Type Aspirin 81 mg PO DAILY 11/14/17 12/11/19 Unknown History FLUoxetine [PROzac] 40 mg PO QDAY #30 capsule 11/26/17 12/11/19 Unknown Rx Pantoprazole [Protonix TAB] 40 mg PO QDAY #30 tablet 11/26/17 12/11/19 Unknown Rx carvediloL [Coreg] 25 mg PO BID tablet 12/06/17 12/11/19 Unknown Rx bisacodyL [Dulcolax tab] 10 mg PO QDAY PRN tablet 09/22/18 12/11/19 Unknown Rx levETIRAcetam [Keppra] 1,000 mg PO BID oral.liqd 09/22/18 12/11/19 Unknown Rx minoxidiL [Loniten] 5 mg PO QDAY tablet 09/22/18 12/11/19 Unknown Rx Clopidogrel [Plavix] 75 mg PO QDAY #30 tablet 02/13/19 12/11/19 Unknown Rx Bacitracin Zinc Oint [Antibiotic 1 applicatio TP BID 04/24/19 12/11/19 Unknown History Oint] Folic Acid/Vit B Complex and C 0.8 mg PO DAILY 04/24/19 12/11/19 Unknown History [Renal Vitamin Tablet] Darbepoetin Jermain in Polysorbat 40 mcg SQ QWEEK 09/17/19 12/11/19 Unknown History [Aranesp] Epoetin Jermain 10,000 Unit [Procrit] 10,000 unit IV BRIAN PRN vial 09/27/19 12/11/19 Unknown Rx Ferrous Sulfate [Feosol 325 MG tab] 325 mg PO DAILY tablet 09/27/19 12/11/19 Unknown Rx Folic Acid/Vit B Comp W-C [Renal 1 cap PO QDAY capsule 09/27/19 12/11/19 Unknown Rx Caps] Insulin Lispro [Humalog] 0 unit SUB-Q ACHS vial 09/27/19 12/11/19 Unknown Rx Insulin NPH/Regular [NovoLIN 70/30] 12 unit SUB-Q BIDDIAB units 09/27/19 12/11/19 Unknown Rx Percocet 5/325 mg 5 mg PO Q6H PRN 12/11/19 12/11/19 Unknown History Senna Plus Tablet 17.2 mg PO QHS 12/11/19 12/11/19 Unknown History Active Meds: Active Medications Acetaminophen (Tylenol) 650 mg PO Q6H PRN PRN Reason: Pain, Mild (1-3) Albuterol (Proventil) 2.5 mg IH Q3HRT PRN PRN Reason: Shortness Of Breath Heparin Sodium (Porcine) (Heparin) 5,000 unit SUB-Q Q12HR NASH Last Admin: 12/12/19 11:30 Dose: Not Given Documented by: Hydralazine HCl (Apresoline) 10 mg IV Q6H PRN PRN Reason: Hypertension Last Admin: 12/12/19 02:33 Dose: 10 mg Documented by: Hydromorphone HCl (Dilaudid) 0.25 mg IV Q4H PRN PRN Reason: Pain, Moderate (4-6) Insulin Human Regular 100 (units/ Sodium Chloride) 100 mls @ 1 mls/hr IV TITR NASH; Protocol Last Titration: 12/12/19 07:47 Dose: 2 units/hr, 2 mls/hr Documented by: Potassium Chloride/Dextrose/Sod Cl (D5w/0.45% Nacl/Kcl 20 Meq) 20 meq in 1,000 mls @ 125 mls/hr IV DIRECT NASH Last Admin: 12/12/19 11:32 Dose: 125 mls/hr Documented by: Cefepime HCl (Cefepime/Ns 2 Gm/100 Ml) 2 gm in 100 mls @ 200 mls/hr IV Q24H NASH; Protocol Norepinephrine (Levophed Drip 4 Mg/Ns 250 Ml) 4 mg in 250 mls @ 7.5 mls/hr IV TITR NASH; Protocol Last Titration: 12/12/19 10:45 Dose: 16 mcg/min, 60 mls/hr Documented by: Sodium Chloride (Nacl 0.9%) 100 mls @ 999 mls/hr IV BRIAN PRN PRN Reason: Hypotension Dopamine HCl/Dextrose (Intropin Drip 800 Mg/D5w 250 Ml) 800 mg in 250 mls @ 3.657 mls/hr IV TITR NASH; Protocol Last Titration: 12/12/19 11:30 Dose: 6 mcg/kg/min, 10.971 mls/hr Documented by: Sodium Chloride (Sodium Chloride Flush Syringe 10 Ml) 10 ml IV BID NASH Last Admin: 12/12/19 11:30 Dose: 10 ml Documented by: Sodium Chloride (Sodium Chloride Flush Syringe 10 Ml) 10 ml IV PRN PRN PRN Reason: LINE FLUSH Review of Systems ROS unobtainable: due to endotracheal tube, due to mental status Exam - Vital Signs Vital signs: Vital Signs Temp Pulse Resp BP Pulse Ox 104 F H 125 H 42 H 162/69 98 12/11/19 15:10 12/11/19 15:10 12/11/19 15:10 12/11/19 15:10 12/11/19 15:10 - Physical Exam Narrative exam: Constitutional: ill appearing, eyes open, intubated Head: NC/AT Neck: ET in place Lungs: mechanical breath sounds CV: RRR, no M/R/G Abdomen: soft, non-tender, bowel sounds present Back: nontender Extremities: cold Skin: intact Neuro: intubated, sedated Results - Lab Results 12/12/19 Unknown 12/12/19 Unknown Most recent lab results Calcium 10.4 mg/dL (8.4-10.2) H 12/12/19 Unknown Calcium 11.1 mg/dL (8.4-10.2) H 12/12/19 Unknown Phosphorus 2.70 mg/dL (2.5-4.5) 12/11/19 17:00 Magnesium 2.20 mg/dL (1.7-2.3) 12/11/19 17:00 Assessment and Plan # ESRD: usually HD //, unclear primary supervising broker, will follow given acute illness for now and transfer care once stable. Unstable for HD currently, with no acute indications for renal replacement therapy. Did discuss with family that patient is critically ill and would not tolerate dialysis at this time, family is aware. Will follow goals of care discussions. - follow with regular labs, assess HD needs and stability # Shock, Leukocytosis, Hypotension: echo pending. Antibiotics per primary, pressors prn. S/p cardiac arrests since arrival # DKA: Insulin gtt per primary # Lactic Acidosis, Metabolic Acidosis: supportive measures, IVF
[2019-12-12 15:22] LABS: ABG Base Excess -11.9 mmol/L (-2.0-3.0); ABG HCO3 12.5 mmol/L (20.0-26.0); ABG Methemoglobin 0.6 % (0.0-1.5); ABG Oxygen Saturation 99.5 % (95.0-99.0); ABG PCO2 24.8 mm Hg; ABG PH 7.319 pH Units (7.350-7.450)
[2019-12-12 15:33] LABS: ABG PO2 354.7 mm Hg (80.0-90.0)
[2019-12-12] MEDS ORDERED: AMIODARONE 150 MG in DEXTROSE 5% IN WATER 97 ML IV ONE (15:45)
--- NOTE | 2019-12-12 15:49 | Consultation ---
History of Present Illness - Reason for Consult Consult date: 12/12/19 end stage renal disease Requesting physician: CAMERON JOSEPH - History of Present Illness This is a 64 yo F with past medical history of Hypertension, Type 2DM, CVA, Anemia, ESRD on HD on TTS schedule at [facility], also resident of [facility], who was BIBEMS after she was found to be more and more confused and lethargic for the last 3 days, also found to be hypoxic with O2sat around 70s. In ER labs showed significant hyperglycemia and pt was initiated on IV insulin. course was complicated by V-fib cardiac arrest then PEA, ACLS protocols were initiated with eventual ROSC. Pt was initiated on dopamin/levophed gtt to maintain MAP > 65mmHg in the setting of septic shock. Labs showed WBC > 14k, along with lactic acid > 3. BCx were pending. Renal consult is requested for management of ESRD/HD. Past History Past Medical History: anemia, diabetes, ESRD, hypertension, seizures Past Surgical History: Other (Left AKA) Social history: single. denies: smoking, alcohol abuse, prescription drug abuse Family history: diabetes, hypertension Medications and Allergies Allergies Allergy/AdvReac Type Severity Reaction Status Date / Time No Known Allergies Allergy Unverified 06/05/17 13:30 Home Medications Medication Instructions Recorded Confirmed Last Taken Type Aspirin 81 mg PO DAILY 11/14/17 12/11/19 Unknown History FLUoxetine [PROzac] 40 mg PO QDAY #30 capsule 11/26/17 12/11/19 Unknown Rx Pantoprazole [Protonix TAB] 40 mg PO QDAY #30 tablet 11/26/17 12/11/19 Unknown Rx carvediloL [Coreg] 25 mg PO BID tablet 12/06/17 12/11/19 Unknown Rx bisacodyL [Dulcolax tab] 10 mg PO QDAY PRN tablet 09/22/18 12/11/19 Unknown Rx levETIRAcetam [Keppra] 1,000 mg PO BID oral.liqd 09/22/18 12/11/19 Unknown Rx minoxidiL [Loniten] 5 mg PO QDAY tablet 09/22/18 12/11/19 Unknown Rx Clopidogrel [Plavix] 75 mg PO QDAY #30 tablet 02/13/19 12/11/19 Unknown Rx Bacitracin Zinc Oint [Antibiotic 1 applicatio TP BID 04/24/19 12/11/19 Unknown History Oint] Folic Acid/Vit B Complex and C 0.8 mg PO DAILY 04/24/19 12/11/19 Unknown History [Renal Vitamin Tablet] Darbepoetin Jermain in Polysorbat 40 mcg SQ QWEEK 09/17/19 12/11/19 Unknown History [Aranesp] Epoetin Jermain 10,000 Unit [Procrit] 10,000 unit IV BRIAN PRN vial 09/27/19 12/11/19 Unknown Rx Ferrous Sulfate [Feosol 325 MG tab] 325 mg PO DAILY tablet 09/27/19 12/11/19 Unknown Rx Folic Acid/Vit B Comp W-C [Renal 1 cap PO QDAY capsule 09/27/19 12/11/19 Unknown Rx Caps] Insulin Lispro [Humalog] 0 unit SUB-Q ACHS vial 09/27/19 12/11/19 Unknown Rx Insulin NPH/Regular [NovoLIN 70/30] 12 unit SUB-Q BIDDIAB units 09/27/19 12/11/19 Unknown Rx Percocet 5/325 mg 5 mg PO Q6H PRN 12/11/19 12/11/19 Unknown History Senna Plus Tablet 17.2 mg PO QHS 12/11/19 12/11/19 Unknown History Active Meds: Active Medications Acetaminophen (Tylenol) 650 mg PO Q6H PRN PRN Reason: Pain, Mild (1-3) Albuterol (Proventil) 2.5 mg IH Q3HRT PRN PRN Reason: Shortness Of Breath Heparin Sodium (Porcine) (Heparin) 5,000 unit SUB-Q Q12HR NASH Last Admin: 12/12/19 11:30 Dose: Not Given Documented by: Hydralazine HCl (Apresoline) 10 mg IV Q6H PRN PRN Reason: Hypertension Last Admin: 12/12/19 02:33 Dose: 10 mg Documented by: Hydromorphone HCl (Dilaudid) 0.25 mg IV Q4H PRN PRN Reason: Pain, Moderate (4-6) Insulin Human Regular 100 (units/ Sodium Chloride) 100 mls @ 1 mls/hr IV TITR NASH; Protocol Last Titration: 12/12/19 07:47 Dose: 2 units/hr, 2 mls/hr Documented by: Potassium Chloride/Dextrose/Sod Cl (D5w/0.45% Nacl/Kcl 20 Meq) 20 meq in 1,000 mls @ 125 mls/hr IV DIRECT NASH Last Admin: 12/12/19 11:32 Dose: 125 mls/hr Documented by: Cefepime HCl (Cefepime/Ns 2 Gm/100 Ml) 2 gm in 100 mls @ 200 mls/hr IV Q24H NASH; Protocol Norepinephrine (Levophed Drip 4 Mg/Ns 250 Ml) 4 mg in 250 mls @ 7.5 mls/hr IV TITR NASH; Protocol Last Titration: 12/12/19 10:45 Dose: 16 mcg/min, 60 mls/hr Documented by: Sodium Chloride (Nacl 0.9%) 100 mls @ 999 mls/hr IV BRIAN PRN PRN Reason: Hypotension Dopamine HCl/Dextrose (Intropin Drip 800 Mg/D5w 250 Ml) 800 mg in 250 mls @ 3.657 mls/hr IV TITR NASH; Protocol Last Titration: 12/12/19 11:30 Dose: 6 mcg/kg/min, 10.971 mls/hr Documented by: Amiodarone HCl 900 mg/ (Dextrose) 500 mls @ 33.333 mls/hr IV DIRECT NASH; Protocol Amiodarone HCl 150 mg/ (Dextrose) 100 mls @ 600 mls/hr IV ONCE ONE Stop: 12/12/19 15:54 Sodium Chloride (Sodium Chloride Flush Syringe 10 Ml) 10 ml IV BID NASH Last Admin: 12/12/19 11:30 Dose: 10 ml Documented by: Sodium Chloride (Sodium Chloride Flush Syringe 10 Ml) 10 ml IV PRN PRN PRN Reason: LINE FLUSH Review of Systems ROS unobtainable: due to endotracheal tube, due to mental status Exam - Vital Signs Vital signs: Vital Signs Temp Pulse Resp BP Pulse Ox 104 F H 125 H 42 H 162/69 98 12/11/19 15:10 12/11/19 15:10 12/11/19 15:10 12/11/19 15:10 12/11/19 15:10 - General Appearance General appearance: well-developed, appears stated age, chronically ill EENT: ATNC, mucous membranes moist Neck: Present: neck supple Respiratory: Decreased Breath Sounds Heart: regular, S1S2 Integumentary: no rash, other (b/l AKA) Neurologic: other (intubated, sedated ) Results - Lab Results 12/12/19 Unknown 12/12/19 Unknown Most recent lab results ABG pH 7.319 pH Units (7.350-7.450) L 12/12/19 15:00 ABG pCO2 24.8 mm Hg 12/12/19 15:00 ABG pO2 354.7 mm Hg (80.0-90.0) H 12/12/19 15:00 ABG HCO3 12.5 mmol/L (20.0-26.0) L 12/12/19 15:00 ABG O2 Saturation 99.5 % (95.0-99.0) H 12/12/19 15:00 Calcium 10.4 mg/dL (8.4-10.2) H 12/12/19 Unknown Calcium 11.1 mg/dL (8.4-10.2) H 12/12/19 Unknown Phosphorus 2.70 mg/dL (2.5-4.5) 12/11/19 17:00 Magnesium 2.20 mg/dL (1.7-2.3) 12/11/19 17:00 Assessment and Plan - Patient Problems (1) End stage renal disease Current Visit: No Status: Chronic Plan to address problem: pt s/p Afib arrest, currently on vasopressor support with dopamin/levophed. no emergent indication for HD at present, pt also too unstable for now. Will reassess pt's condition and arrange HD in AM. (2) Septic shock Current Visit: Yes Status: Acute Plan to address problem: cont vasopressor support with dopamin/levophed to maintain MAP > 65mmHg. pt initiated on empiric ABX with vanco/cefepime (3) Toxic metabolic encephalopathy Current Visit: Yes Status: Acute (4) Acute hypoxemic respiratory failure Current Visit: No Status: Acute Plan to address problem: management as per pulm/CCM (5) Type 2 diabetes mellitus with diabetic chronic kidney disease Current Visit: No Status: Chronic Qualifiers: Chronic kidney disease stage: on chronic dialysis Plan to address problem: diabetes management as per primary attending (6) Cardiac arrest Current Visit: Yes Status: Acute Plan to address problem: V-fib arrest then PEA. s/p ACLS now with ROSC.
--- NOTE | 2019-12-12 15:59 | Event Note ---
Date: 12/12/19 I was in The room patient was coding patient's family states that they want all resuscitation efforts to stop if she codes again.
[2019-12-12] MEDS ORDERED: AMIODARONE 900 MG in DEXTROSE 5% IN WATER 482 ML IV SCH (16:00)
--- NOTE | 2019-12-12 16:46 | Death Summary ---
Summary - Providers Date of service: 12/12/19 Consults: 12/12/19 05:38 Consult to Physician [CONS] Urgent Comment: Consulting Provider: JONATHAN FAIR Physician Instructions: Reason For Exam: ESRD ON DIALYSIS 12/12/19 12:38 Consult to Physician [CONS] Routine Comment: Consulting Provider: CLIFF LUCERO Physician Instructions: Reason For Exam: Respiratory failure 12/12/19 14:53 Consult to Physician [CONS] Routine Comment: Consulting Provider: GERMÁN HAYES Physician Instructions: Reason For Exam: Ventricular fibrillation Attending: JENNIFER SERRA - summary Date of admission: 12/11/19 17:49 Date of : 12/12/19 Procedures/treatments rendered: 64 YO Female [facility] as [facility] with HTN, DM, Seizure Disorder, ESRD on HD(T,R,Sa), CVA, [place], Anemia, GERD presents to ED for evaluation. The patient is confused and lethargic and unable to provide history at the time of my evaluation. Patient history provided by EMS staff, ED staff, as well as [facility] staff. As per staff the patient was found to have increased confusion over the past 3 days as well as hypoxemia with a pulse oximetry of 70.5% on room air. EMS was notified and upon arrival the patient was found to be in distress and subsequently transported to [facility] for further care and evaluation of the aforementioned symptoms. The patient was seen and evaluated in the emergency department. All lab and imaging studies reviewed. The patient was found to have diabetic ketoacidosis, sepsis, toxic metabolic encephalopathy. Patient initiated on DKA protocol as well as sepsis protocol and admitted to ICU due to increased risk of multiorgan system failure. No further history is obtainable. Patient is confused and lethargic at the time of my evaluation but the patient has a positive gag reflex and is able to protect her airway without difficulty. Advanced care planning conducted in the emergency department. 12/11. Patient received IV fluids for DKA yesterday. This a.m. patient was noted to be hypoxic and subsequently had a cardiac arrest with ROSC. Patient now intubated and on pressors for hypotension. Patient started on broad- spectrum antibiotics for sepsis-septic shock. Patient is on insulin drip for DKA. Pulmonology consulted for vent management and septic shock. Awaiting nephrology evaluation. Patient had a pulseless VT arrest with ROSC. Discussed with cardiology who suggested starting patient on amiodarone. Amiodarone initiated. Cardiology consult placed. I discussed with patients daughters today. [place] mentioned mother has gone through a lot and would like to cease resuscitation efforts if she has a cardiac arrest again. Patient had another cardiac arrest and as per family wishes, she was made comfortable. Patient 15:55. - Final diagnosis (1) Septic shock Note: Final diagnosis: (2) Cardiac arrest Note: Final diagnosis: (3) DKA (diabetic ketoacidoses) Qualifiers: Diabetes mellitus type: type 2 Diabetes mellitus complication detail: without coma Qualified Code(s): E11.10 - Type 2 diabetes mellitus with ketoacidosis without coma Note: Final diagnosis:
== END 2019-12-12 19:30 | DRG 871 ==
LOC: ED 14:24 → CC1 17:49
PROVIDERS: ADMIT Internal Medicine; ATTEND Internal Medicine
PROC: 0BH17EZ Insertion of Endotracheal Airway into Trachea, Via Natural or Artificial Opening (ICD-10-PCS; principal; 2019-12-12)
PROC: 5A1935Z Respiratory Ventilation, Less than 24 Consecutive Hours (ICD-10-PCS; 2019-12-12)
PROC: 5A12012 Performance of Cardiac Output, Single, Manual (ICD-10-PCS; 2019-12-12)
PROC: 06HY33Z Insertion of Infusion Device into Lower Vein, Percutaneous Approach (ICD-10-PCS; 2019-12-12)
DX: A41.9 Sepsis, unspecified organism (principal); E11.10 Type 2 diabetes mellitus with ketoacidosis without coma; G92 Toxic encephalopathy; R65.21 Severe sepsis with septic shock; N18.6 End stage renal disease; J96.01 Acute respiratory failure with hypoxia; I12.0 Hypertensive chronic kidney disease with stage 5 chronic kidney disease or end stage renal disease; E66.2 Morbid (severe) obesity with alveolar hypoventilation; E11.22 Type 2 diabetes mellitus with diabetic chronic kidney disease; G40.909 Epilepsy, unspecified, not intractable, without status epilepticus; K21.9 Gastro-esophageal reflux disease without esophagitis; I46.9 Cardiac arrest, cause unspecified; Z86.73 Personal history of transient ischemic attack (TIA), and cerebral infarction without residual deficits; I25.2 Old myocardial infarction; Z89.612 Acquired absence of left leg above knee; Z82.49 Family history of ischemic heart disease and other diseases of the circulatory system; Z83.3 Family history of diabetes mellitus; Z79.82 Long term (current) use of aspirin; Z79.899 Other long term (current) drug therapy; Z79.4 Long term (current) use of insulin; Z68.36 Body mass index [BMI] 36.0-36.9, adult
CPT/HCPCS: 36415; 70450; 71045; 80048; 80053; 80074; 82010; 82140; 82803; 82805; 82962; 83735; 84100; 85007; 85025; 85610; 85730; 87040; 93005; 93306; 93970; 94002; 94003; G0378; J0171; J0330; J0360; J0692; J1265; J1644; J1815; J2001; J3370; J3480; J7030; J7040